=== PATIENT | female | born 1990 | race Caucasian/White ===

== ENCOUNTER → 2020-10-26 14:49 | Outpatient (CLI) | payer BC, SELFPAY ==
--- NOTE | ~2020-10-26 | US_ITS ---
US pelvic complete w TV DATE: 10/26/2020 15:34 INDICATION: Sharp punching pain in the pelvis, left lower quadrant TECHNIQUE: Real-time imaging via transabdominal and transvaginal approaches COMPARISON: 02/12/2013 pelvic ultrasound FINDINGS: The uterus measures 7.0 cm height, 3.4 cm AP and 4.0 cm transverse dimension, with 6 mm kenia tral anteroposterior dimension endometrial echo complex. Right ovary 1.7 x 1.2 x 1.3 cm with vascular flow. Left ovary 1.1 x 0.9 x 1.0 cm No pelvic mass or abnormal pelvic fluid collection is identified. IMPRESSION: No significant abnormality demonstrated Reviewed, dictated and finalized at Location [facility]. Reviewed, dictated and finalized at location A.
== END ==
PROVIDERS: PCP Internal Medicine; Visit Provider Physician Assistant Medical
DX: R10.9 Unspecified abdominal pain (principal)
CPT/HCPCS: 76830; 76856

== ENCOUNTER 2022-10-07 13:31 | Outpatient (CLI) | payer OTHER, SELFPAY ==
--- NOTE | ~2022-10-07 | XR_ITS ---
XR chest 2V DATE: 10/07/2022 13:51 INDICATION: Dyspnea TECHNIQUE: PA and lateral views COMPARISON: 04/01/2015 PA chest FINDINGS: Right internal jugular Port-A-Cath catheter, distal tip overlying upper right atrium. Surgical clips overlie right breast and right axillary area. Normal heart size. No hilar or mediastinal enlargement. No pulmonary infiltrate or consolidation, ple ural effusion or pulmonary vascular congestion or pneumothorax. Included skeletal structures are unremarkable. IMPRESSION: No active cardiopulmonary disease Right Port-A-Cath catheter tip in upper right atrium Postoperative change of right breast and axillary area Reviewed, dictated and finalized at location B.
[2022-10-07 14:05] LABS: Basophils Absolute Auto 0.1 K/mm3 (0.0-0.1); Basophils Percent Auto 0.8 % (0.2-1.2); Eosinophils Absolute Auto 0.4 K/mm3 (0-0.3); Eosinophils Percent Auto 5.5 % (0-4.4); Hematocrit 38.6 % (37.0-47.0); Hemoglobin 12.8 g/dL (12.0-15.0); Immature Granulocyte Absolute 0.01 K/mm3 (0.00-0.031); Immature Granulocyte Percent A 0.1 % (0-0.5); Lymphocytes Absolute Auto 1.68 K/mm3 (0.9-3.2); Lymphocytes Percent Auto 23.6 % (18.3-44.2); Mean Corpuscular HGB Conc 33.2 g/dl (32-36); Mean Corpuscular Volume 90.6 fl (80-100); Mean Platelet Volume 9.1 fl (7.4-10.4); Monocytes Absolute Auto 0.5 K/mm3 (0.1-0.6); Monocytes Percent Auto 7.2 % (2.6-8.5); Neutrophils Absolute Auto 4.5 K/mm3 (1.3-6.7); Neutrophils Percent Auto 62.8 % (45.5-73.1); Platelet Count Result 259 k/mm3 (150-375); Red Blood Count 4.26 M/mm3 (4.2-5.4); Red Cell Distribution Width 12.7 % (11.5-14.5); White Blood Count 7.1 K/mm3 (4.5-10.0)
[2022-10-07 14:15] LABS: Alanine Aminotransferase 24 U/L (6-35); Alkaline Phosphatase 63 U/L (38-126); Anion Gap 14 mmol/L (8-16); Aspartate Amino Transferase 23 U/L (14-36); Bilirubin,Total 0.3 mg/dL (0.2-1.3); Blood Urea Nitrogen 9 mg/dL (7-17); Calcium 8.8 mg/dL (8.4-10.2); Carbon Dioxide 17 mmol/L (22-30); Chloride 107 mmol/L (98-107); Cholesterol 304 mg/dL (0-200); Estimated Glomerular Filt Rate > 60; Glucose 123 mg/dL (65-110); HDL Direct 76 mg/dL; Magnesium 1.8 mg/dL (1.6-2.3); Potassium 3.6 mmol/L (3.4-5.0); Sodium 138 mmol/L (137-145); Triglycerides 330 mg/dL (<150)
[2022-10-07 14:26] LABS: LDL Cholesterol Direct 163 mg/dL
[2022-10-07 14:27] LABS: NT Pro B Type Natriuretic Pept 70 pg/mL (19.9-100); Troponin I < 0.012 ng/mL (0.000-0.034)
[2022-10-07 14:31] LABS: Vitamin D 25 Hydroxy 36.4 ng/mL
[2022-10-07 15:21] LABS: D Dimer 0.47 ug/mL (<0.48)
== END 2022-10-07 13:32 | disposition home or self-care (01) ==
PROVIDERS: PCP Physician Assistant Medical; Visit Provider Physician Assistant Medical
DX: C50.919 Malignant neoplasm of unspecified site of unspecified female breast (principal); E78.00 Pure hypercholesterolemia, unspecified; R06.00 Dyspnea, unspecified; R07.9 Chest pain, unspecified; Z00.00 Encounter for general adult medical examination without abnormal findings; Z92.21 Personal history of antineoplastic chemotherapy; E55.9 Vitamin D deficiency, unspecified
CPT/HCPCS: 36415; 71046; 80053; 80061; 82306; 82607; 83735; 83880; 84443; 84484; 85025; 85380

== ENCOUNTER 2022-10-10 10:46 | Emergency (ER) | payer OTHER, SELFPAY ==
--- NOTE | ~2022-10-10 | CT_ITS ---
EXAMINATION: CTA chest PE protocol DATE: 10/10/2022 13:43 INDICATION: Shortness of breath. TECHNIQUE: Computed tomography angiography (CTA) of the chest was performed with 100 mL Omnipaque-350 intravenous contrast timed to evaluate the pulmonary arteries. Coronal maximum intensity projection 3D-reconstructions were created by the technologist. Automated exposure control and iterative reconst ruction technique were employed. The dose-length product was 462.18 mGy-cm. COMPARISON: None. FINDINGS: The lungs demonstrate mild atelectasis. There is a 3 mm nodule in right middle lobe, likely benign. Calcified left lung nodules and calcified left hilar lymph nodes are consistent with old gra nulomatous disease. No pleural effusion. There is a right internal jugular port with tip in right atr ium. The heart size is normal. No pericardial effusion. There is no pulmonary embolus. There are surg ical changes in right breast and right axilla. The bones are unremarkable. IMPRESSION: 1. No pulmonary embolus. Reviewed, dictated and finalized at location A. IMPRESSION: 1. No pulmonary embolus.
[2022-10-10 10:59] VITALS: BP 135/76; PULSE 96; RESP 20; TEMP 36.6; O2SAT 100
--- NOTE | 2022-10-10 12:37 | ED.SOB ---
HPI - SOB/Dyspnea General Chief Complaint: Shortness of Breath/Dyspnea Stated Complaint: SOB X1 MONTH Time Seen by Provider: 10/10/22 11:49 History of Present Illness HPI Narrative: Patient is a 32-year-old female who presents ER with shortness of breath. Reports its worsened over the last month. Prior to that it had been intermittent over the previous 6 months. It was worse when she was receiving chemo and radiation. She has history of breast cancer that had no metastases. She reports that her PCP sent her here to have a CT scan to rule out metastases to her lung. Her oncologist has ordered an outpatient echocardiogram to evaluate her for heart failure. She has no orthopnea. No productive cough. No hemoptysis. No lower extremity swelling. She is without fevers or chills or sweats. She reports she feels like she cannot get a breath through her nose but denies any nasal congestion. Denies any alleviating factors. Related Data Home Medications Medication Instructions Recorded Confirmed aspirin 81 mg capsule 81 mg PO DAILY 10/10/22 10/10/22 Allergies Allergy/AdvReac Type Severity Reaction Status Date / Time doxycycline Allergy Severe Vomiting Verified 10/10/22 11:14 nitrofurantoin Allergy Intermediate Rash Verified 10/10/22 11:14 carboplatin Allergy Anaphylaxis Verified 10/10/22 11:14 acetaminophen [From Percocet] AdvReac Severe Vomiting Verified 10/10/22 11:14 ciprofloxacin AdvReac Severe Diarrhea Verified 10/10/22 11:14 oxycodone [From Percocet] AdvReac Severe Vomiting Verified 10/10/22 11:14 Review of Systems Review of Systems: All systems reviewed & are unremarkable except as noted in HPI and below Constitutional: Constitutional: Denies chills, Reports fatigue and Denies fever(s) ENT: Denies nasal congestion and Denies sore throat Cardiovascular: Cardiovascular: Denies chest pain, Denies rapid heart rate and Denies radiating jaw, neck or arm pain Respiratory: Respiratory: Denies cough, Reports dyspnea and Denies wheezing Gastrointestinal: Gastrointestinal: Denies abdominal pain, Denies nausea and Denies vomiting PMF Past Medical History Medical History (Updated 10/10/22 @ 14:48 by Robert Stewart MD) Abnormal breast biopsy Breast cancer Elevated cholesterol Endometriosis Endometriosis determined by laparoscopy Hematuria Pain of left calf Triple negative breast cancer Vitamin D deficiency Surgical History Surgical History (Updated 10/07/22 @ 11:50 by Sylvia Kennedy MA) History of tonsillectomy Social History Social History Smoking status: Never smoker Alcohol intake: current Alcohol use details: rarely Substance use: never Living arrangements: with friend(s) Occupation/Education: occupation Gender identity (if verbalized by the patient): Female Exam Narrative: GENERAL: Well-appearing, well-nourished, and in no acute distress. HEAD: Normocephalic, atraumatic. ENT: Mucous membranes moist. CHEST: Clear to auscultation. No respiratory distress. HEART: Regular rate and rhythm. Normal peripheral pulses. ABDOMEN: Soft, nontender, nondistended. EXTREMITIES: Normal range of motion. No edema. SKIN: Warm, dry, no rash. NEURO: Alert and oriented x3. PSYCH: Normal mood and affect. Course Course Emergency Course: Patient resting comfortably. Discussed lab work as well as imaging studies. Patient felt appropriate for discharge home and follow-up with her PCP/oncologist. Vital Signs Vital signs: Vital Signs Temperature 98 F 10/10/22 10:59 Pulse Rate 96 10/10/22 10:59 Respiratory Rate 20 10/10/22 10:59 Blood Pressure 135/76 10/10/22 10:59 Pulse Oximetry 100 10/10/22 10:59 Oxygen Delivery Room Air 10/10/22 10:59 Temperature 98 F 10/10/22 10:59 Pulse Rate 67 10/10/22 15:00 Respiratory Rate 16 10/10/22 15:00 Blood Pressure 117/80 10/10/22 15:00 Pulse Oximetry 98
[2022-10-10 13:01] LABS: Basophils Percent Auto 0.5 % (0.2-1.2); Eosinophils Percent Auto 0.1 % (0-4.4); Hematocrit 37.9 % (37.0-47.0); Hemoglobin 12.5 g/dL (12.0-15.0); Immature Granulocyte Absolute 0.03 K/mm3 (0.00-0.031); Immature Granulocyte Percent A 0.4 % (0-0.5); Lymphocytes Absolute Auto 0.93 K/mm3 (0.9-3.2); Lymphocytes Percent Auto 12.2 % (18.3-44.2); Mean Corpuscular Hemoglobin 29.8 pg (26-34); Mean Corpuscular Volume 90.2 fl (80-100); Mean Platelet Volume 9.1 fl (7.4-10.4); Monocytes Absolute Auto 0.2 K/mm3 (0.1-0.6); Neutrophils Absolute Auto 6.4 K/mm3 (1.3-6.7); Neutrophils Percent Auto 83.8 % (45.5-73.1); Platelet Count Result 268 k/mm3 (150-375); Red Cell Distribution Width 12.9 % (11.5-14.5); White Blood Count 7.6 K/mm3 (4.5-10.0)
[2022-10-10 13:14] LABS: Alanine Aminotransferase 23 U/L (6-35); Albumin Level 4.2 g/dL (3.5-5.1); Alkaline Phosphatase 64 U/L (38-126); Anion Gap 8 mmol/L (8-16); Aspartate Amino Transferase 23 U/L (14-36); Bilirubin,Total 0.3 mg/dL (0.2-1.3); Blood Urea Nitrogen 11 mg/dL (7-17); Calcium 8.8 mg/dL (8.4-10.2); Carbon Dioxide 21 mmol/L (22-30); Chloride 108 mmol/L (98-107); Estimated CRCL calculation 110 ml/min; Estimated Glomerular Filt Rate > 60; Glucose 97 mg/dL (65-110); Potassium 3.7 mmol/L (3.4-5.0); Sodium 137 mmol/L (137-145)
[2022-10-10 13:16] LABS: INR 0.9; Partial Thromboplastin Time 21.1 SECONDS (22.3-36.8); Prothrombin Time 12.8 Seconds (11.1-14.7)
[2022-10-10 13:55] VITALS: BP 119/78; PULSE 77; RESP 18; O2SAT 99
[2022-10-10 15:00] VITALS: BP 117/80; PULSE 67; RESP 16; O2SAT 98
== END 2022-10-10 15:05 | disposition home or self-care (01) ==
PROVIDERS: Emergency Provider Emergency Medicine; PCP Physician Assistant Medical
DX: R06.00 Dyspnea, unspecified (principal); E78.00 Pure hypercholesterolemia, unspecified; N80.9 Endometriosis, unspecified; E55.9 Vitamin D deficiency, unspecified; Z85.3 Personal history of malignant neoplasm of breast; Z92.3 Personal history of irradiation; Z92.21 Personal history of antineoplastic chemotherapy; Z79.82 Long term (current) use of aspirin
CPT/HCPCS: 36415; 71275; 80053; 81025; 85025; 85610; 85730; 99284; Q9967

== ENCOUNTER 2022-11-17 10:29 | Outpatient (CLI) | payer OTHER, SELFPAY ==
--- NOTE | 2022-11-17 11:50 | PCRCNOTE ---
PATIENT HAS RECEIVED EDUCATION ON PEAK FLOW AND SPACER.
--- NOTE | 2022-11-17 16:39 | WPDPFTINT ---
PFT Procedure Performed PFT Procedure Performed Spirometry with Pre/Post Bronchodilator Plethysmography (Lung Vol) Diffusing Cap (DLCO) Flow Vol Loop PFT Interpretation Lung volumes were measured with the body plethysmography method. Lung volumes are unremarkable. Spirometry showed normal expiratory flow rates and a normal FEV1 to FVC ratio of 84%. Following administration of a bronchodilator there was no significant increase in the expiratory flow rates. Lung diffusion capacity is mildly reduced at 66% predicted. The flow volume loop is unremarkable. Impression: Spirometry, lung volumes within the normal range. Mild reduction in lung diffusion capacity.
--- NOTE | 2022-11-17 16:40 | WPDSIXMINUTE ---
Six Minute Walk Procedure Procedure Performed Pulmonary Stress Test (6 min walk) Six Minute Walk Six Minute Walk: This 6 minute walk test was carried out with the patient breathing ambient air. The baseline pre walk oxyhemoglobin saturation was 98%. The patient walked 411 m with no stops during testing. During the walk the oxyhemoglobin saturation remained in the range of 97% to 98%. The perceived dyspnea on the Maxi scale at baseline was 0 and increased to 2 at the end of testing. Impression: No evidence of oxyhemoglobin desaturation on this testing.
== END 2022-11-17 10:30 | disposition home or self-care (01) ==
PROVIDERS: PCP Family Medicine; Visit Provider Internal Medicine Critical Care Medicine
DX: R06.02 Shortness of breath (principal)
CPT/HCPCS: 94060; 94618; 94726; 94729

== ENCOUNTER → 2022-11-25 11:44 | Outpatient (CLI) | payer OTHER, SELFPAY ==
--- NOTE | ~2022-11-25 | US_ITS ---
US breast BI complete DATE: 11/25/2022 12:12 INDICATION: Right breast pain for one month single status post right partial mastectomy in February, for triple negative breast cancer. TECHNIQUE: Real-time imaging of both complete breasts including all 4 quadrants and subareolar areas COMPARISON: None available at this institution FINDINGS: No suspicious mass or shadowing, cyst or other significant sonographic abnormality of eithe r breast is detected. IMPRESSION: No significant abnormality Reviewed, dictated and finalized at Location A. Reviewed, dictated and finalized at location A. IMPRESSION: No significant abnormality
== END ==
PROVIDERS: PCP Family Medicine; Visit Provider Family Medicine
DX: N64.4 Mastodynia (principal); Z85.3 Personal history of malignant neoplasm of breast
CPT/HCPCS: 76641

== ENCOUNTER 2023-01-27 17:45 | Emergency (ER) | payer OTHER, SELFPAY ==
--- NOTE | ~2023-01-27 | XR_ITS ---
EXAMINATION: XR abdomen/kub 1V DATE: 01/27/2023 18:40 INDICATION: Constipation 5 days of left-sided abdominal pain TECHNIQUE: A supine view of the abdomen was obtained. COMPARISON: 10/13/2012 FINDINGS: Moderate to large amount of stool in the mid to distal colon. No dilated loops of gas-filled bowel to suggest obstruction. No suspicious calcific lesions in the abdomen or pelvis. Bones are unremarkable . IMPRESSION: 1. Moderate to large amount of stool in the mid to distal colon consistent with provided history of c onstipation. No bowel obstruction. Reviewed, dictated and finalized at location A. APY ADMINISTRATIVE ASSISTANT IMPRESSION: 1. Moderate to large amount of stool in the mid to distal colon consistent with provided history of constipation. No bowel obstruction.
[2023-01-27 18:14] VITALS: BP 112/67; PULSE 85; RESP 18; TEMP 36.2; O2SAT 99
--- NOTE | 2023-01-27 18:34 | ED.ABDPAIN ---
HPI - Abdominal Pain General Chief Complaint: Abdominal Pain Stated Complaint: Left Side Pain Time Seen by Provider: 01/27/23 18:34 Source: patient Mode of arrival: ambulatory Limitations: no limitations History of Present Illness HPI narrative: 33-year-old female presents with complaint of left-sided abdominal pain under her ribcage for the past several days. Denies urinary symptoms. No history of kidney stones. Patient concerned that she is possibly constipated. States that she was having normal bowel movements and no bowel movements are small. History of Endometriosis and has had off and on constipation since diagnosis. all systems reviewed and negative except as noted above. Related Data Home Medications Medication Instructions Recorded Confirmed norethindrone 0.4 mg-ethinyl 1 tablet PO DAILY 11/16/22 01/27/23 estradiol 35 mcg tablet (Vyfemla (28)) rosuvastatin 5 mg tablet 5 mg PO HS 01/27/23 01/27/23 Allergies Allergy/AdvReac Type Severity Reaction Status Date / Time carboplatin Allergy Severe Anaphylaxis Verified 01/27/23 17:46 acetaminophen [From Percocet] AdvReac Intermediate Vomiting Verified 01/27/23 17:46 ciprofloxacin AdvReac Intermediate Diarrhea Verified 01/27/23 17:46 doxycycline AdvReac Intermediate Vomiting Verified 01/27/23 17:46 oxycodone [From Percocet] AdvReac Intermediate Vomiting Verified 01/27/23 17:46 nitrofurantoin AdvReac Mild Rash Verified 01/27/23 17:46 Review of Systems Review of Systems: CONSTITUTIONAL: Denies fever, chills, or sweats. EYES: Denies visual changes, redness, or discharge. ENT: Denies rhinorrhea, congestion, sore throat, or otalgia. CARDIOVASCULAR: Denies chest pain, palpitations, or edema. RESPIRATORY: Denies cough or dyspnea. GASTROINTESTINAL: Reports left-sided pain with intermittent abdominal bloating. No diarrhea, nausea or vomiting. GENITOURINARY: Denies dysuria or hematuria. SKIN: Denies rash or itching. MUSCULOSKELETAL: Denies back pain, joint pain, or myalgia. NEUROLOGIC: Denies headache, numbness, or weakness. PSYCHIATRIC: Denies anxiety or depression. All other systems reviewed are negative, except as documented in HPI. [facility] Past Medical History Medical History (Updated 01/27/23 @ 18:58 by Samira Andrea NP) Abnormal breast biopsy Breast cancer right breast, medial position lumpectomy 02-10-2022, Dr Kiser Breast lump Breast pain Elevated cholesterol Endometriosis Endometriosis determined by laparoscopy Hematuria History of breast cancer Pain of left calf Triple negative breast cancer Vitamin D deficiency Surgical History Surgical History History of adenoidectomy History of breast biopsy History of tonsillectomy Hx of myomectomy S/P myringotomy with insertion of tube Social History Social History Smoking status: Never smoker Alcohol intake: current Alcohol use details: rarely Substance use: never Living arrangements: with friend(s) Occupation/Education: occupation Gender identity (if verbalized by the patient): Female Comments At time of signature, agree with nursing past medical, surgical, social and family history. There is no relevant family history pertinent to the presenting complaint. Exam Narrative: GENERAL: This is a well-nourished, well-developed patient, in no apparent distress. HEAD: normocephalic, atraumatic. EYES: PERRL. Sclera clear/white. Vision is grossly intact. EARS: External ears normal NOSE: External nose normal NECK: Neck supple, non-tender without lymphadenopathy, masses or thyromegaly. CARDIOVASCULAR: Regular rate and rhythm without murmurs, gallops, or rubs. RESPIRATORY: Clear to auscultation. Breath sounds equal bilaterally. No wheezes, rales, or rhonchi. GASTROINTESTINAL: Abdomen soft, non-tender, nondistended. Bowel sounds are Hypo active. No hepato-sple
== END 2023-01-27 19:00 | disposition home or self-care (01) ==
PROVIDERS: Emergency Provider Nurse Practitioner Family; PCP Family Medicine
DX: K59.00 Constipation, unspecified (principal); E78.00 Pure hypercholesterolemia, unspecified; N80.9 Endometriosis, unspecified; Z85.3 Personal history of malignant neoplasm of breast
CPT/HCPCS: 74018; 81003; 99213; G0463

== ENCOUNTER → 2023-05-03 12:42 | Outpatient (CLI) | payer OTHER, SELFPAY ==
--- NOTE | ~2023-05-03 | US_ITS ---
US axilla LT 05/03/2023 12:59 Indication: Palpable lump left axilla Procedure: High-resolution ultrasound of the left axilla Comparison: No prior studies for comparison. Findings: There is a normal lymph node of the left axilla in the area of palpable concern measuring 1 .8 x 1.5 x 0.9 cm with fatty hilum. No suspicious masses to suggest malignancy. Impression: 1: Normal left axillary lymph node corresponding to area of palpable concern. BI-RADS CATEGORY 2 - BENIGN FINDINGS Reviewed, dictated and finalized at location A. NE ELECTRICIAN Impression: 1: Normal left axillary lymph node corresponding to area of palpable concern. BI-RADS CATEGORY 2 - BENIGN FINDINGS
== END ==
PROVIDERS: Visit Provider Physician Assistant Medical
DX: N63.32 Unspecified lump in axillary tail of the left breast (principal)
CPT/HCPCS: 76882

== ENCOUNTER 2023-09-13 08:03 | Outpatient (CLI) | payer OTHER, SELFPAY ==
--- NOTE | ~2023-09-13 | CT_ITS ---
EXAMINATION: CT abdomen pelvis w con DATE: 09/13/2023 08:44 INDICATION: Unspecified abdominal pain. TECHNIQUE: Computed tomography (CT) of the abdomen and pelvis was performed with 100 mL Omnipaque 350 intravenous contrast. Automated exposure control and iterative reconstruction technique were employe d. The dose-length product was 867.62 mGy-cm. COMPARISON: None. FINDINGS: The visualized portions of the lung bases demonstrate a calcified left lung nodule, consist ent with old granulomatous disease. No pleural effusion. The heart size is normal. No pericardial eff usion. The liver, gallbladder, spleen, pancreas, adrenal glands, and kidneys are normal. There is liq uid stool in the colon suggesting diarrhea. The appendix is visualized. There are no dilated loops of bowel. There are no pathologically enlarged lymph nodes. There is no free intraperitoneal fluid. The bones are unremarkable. IMPRESSION: 1. No etiology for the patient's symptoms. Reviewed, dictated and finalized at location A.
== END 2023-09-13 08:04 | disposition home or self-care (01) ==
PROVIDERS: PCP Physician Assistant Medical; Visit Provider Physician Assistant Medical
DX: R93.5 Abnormal findings on diagnostic imaging of other abdominal regions, including retroperitoneum (principal)
CPT/HCPCS: 74177; Q9967

== ENCOUNTER 2023-09-19 17:11 | Emergency (ER) | payer OTHER, SELFPAY ==
--- NOTE | 2023-09-19 17:17 | ED.FEMALEGU ---
HPI - Female Genitourinary General Chief complaint: Urogenital-Female Stated complaint: UTI Issues Time Seen by Provider: 09/19/23 17:30 Source: patient, RN notes reviewed and old records reviewed Mode of arrival: ambulatory Limitations: no limitations History of Present Illness HPI Narrative: 33-year-old female presents to the [facility] with concerns for UTI, recently diagnosed on 09/06, prescribed Keflex. Was seen [facility] at 6/29 a.m., prescribed cefpodoxime and on 09/14 was prescribed Medrol Dosepak Did see her primary care provider on the 11 of September, urine dip done, CT scan done did not show any acute findings Patient reports that she did a telehealth visit on the 14 of September, was prescribed a Medrol Dosepak. States that she is still not getting relief with her pain. Has a prescription for tramadol, states it is not working. Related Data Home Medications Medication Instructions Recorded Confirmed norethindrone 0.4 mg-ethinyl 1 tablet PO DAILY 11/16/22 09/19/23 estradiol 35 mcg tablet (Vyfemla (28)) cholecalciferol (vitamin D3) 50 50 mcg PO DAILY 03/15/23 09/19/23 mcg (2,000 unit) capsule Allergies Allergy/AdvReac Type Severity Reaction Status Date / Time carboplatin Allergy Severe Anaphylaxis Verified 09/19/23 17:22 acetaminophen [From Percocet] AdvReac Intermediate Vomiting Verified 09/19/23 17:22 ciprofloxacin AdvReac Intermediate Diarrhea Verified 09/19/23 17:22 doxycycline AdvReac Intermediate Vomiting Verified 09/19/23 17:22 oxycodone [From Percocet] AdvReac Intermediate Vomiting Verified 09/19/23 17:22 [id number]-VfW Reductase AdvReac Intermediate Myalgias Verified 09/19/23 17:22 Inhibitor nitrofurantoin AdvReac Mild Rash Verified 09/19/23 17:22 Review of Systems Review of Systems: All systems reviewed & are unremarkable except as noted in HPI and below Constitutional: Constitutional: Reports no additional constitutional complaints Eyes: Eyes: Reports no additional eye complaints ENT: Reports system reviewed and no additional complaints, except as documented Cardiovascular: Cardiovascular: Reports no additional cardiovascular complaints, Denies chest pain and Denies dyspnea Respiratory: Respiratory: Reports no additional respiratory complaints, Denies chest congestion, Denies cough and Denies dyspnea Gastrointestinal: Gastrointestinal: Reports no additional gastrointestinal complaints, Denies abdominal pain, Denies nausea and Denies vomiting Musculoskeletal: Musculoskeletal: Reports as per HPI and Reports back pain (Left lower flank) Integumentary/Breasts: Skin/Breast: Reports system reviewed and no additional complaints, except as docu Neurologic: Reports system reviewed and no additional complaints, except as documented Psychiatric: Psychiatric: Reports no additional psychiatric complaints Allergic/Immunologic: Allergic/Immunologic: Reports no additional allergic/immunologic complaints PMFSH Past Medical History Medical History Abnormal breast biopsy Breast cancer right breast, medial position lumpectomy 02-10-2022, Dr Kiser Breast lump Breast pain Dyslipidemia Elevated cholesterol Endometriosis Endometriosis determined by laparoscopy Hematuria History of breast cancer Pain of left calf Triple negative breast cancer Vitamin D deficiency Surgical History Surgical History History of adenoidectomy History of breast biopsy History of tonsillectomy Hx of myomectomy S/P myringotomy with insertion of tube Social History Social History Smoking status: Never smoker Alcohol intake: current Alcohol use details: rarely Substance use: never Living arrangements: with friend(s) Occupation/Education: occupation Gender identity (if verbalized by the patient): Female Comments At the time of my signature,
[2023-09-19 17:35] VITALS: BP 129/84; PULSE 90; RESP 18; TEMP 36.8; O2SAT 98
[2023-09-19] MEDS: KETOROLAC (*BKC) 60 MG/2 ML VIAL IM (17:55)
[2023-09-19 18:19] LABS: EDUAAPPEAR Clear; EDUABILI Negative; EDUABLOOD Trace; EDUACOLOR1 Yellow; EDUAGLUCOSE Negative; EDUAKETONE Negative; EDUALEUKO Negative; EDUANITRATE Negative; EDUAPH 5.5; EDUAPROTEIN Negative; EDUAUROBILI 0.2
== END 2023-09-19 18:15 | disposition home or self-care (01) ==
PROVIDERS: Emergency Provider Nurse Practitioner; PCP Physician Assistant Medical
DX: R10.9 Unspecified abdominal pain (principal); E78.5 Hyperlipidemia, unspecified; E78.00 Pure hypercholesterolemia, unspecified; N80.9 Endometriosis, unspecified; E55.9 Vitamin D deficiency, unspecified; Z85.3 Personal history of malignant neoplasm of breast; Z90.11 Acquired absence of right breast and nipple
CPT/HCPCS: 81003; 87086; 96372; 99213; G0463; J1885

== ENCOUNTER 2023-09-29 11:53 | Outpatient (CLI) | payer OTHER, SELFPAY ==
--- NOTE | ~2023-09-29 | US_ITS ---
Abdominal Sonogram: Real-time sonographic imaging of the abdomen was performed. Clinical History: Abdominal pain Findings: The liver appears normal with no evidence of mass lesion or bile duct dilatation. Main por vandana vein demonstrates normal direction of flow. The spleen is normal in size without evidence of foca l lesion. The gallbladder is well distended, and appears normal with no evidence of gallstone or wal l thickening. The common bile duct measures 4 mm. The visualized pancreas, aorta, and IVC are unrema rkable. The right kidney measures 11.1 cm in length and the left kidney measures 10.2 cm. There is no hydronephrosis or renal calculus. Impression: Unremarkable abdominal ultrasound. Reviewed, dictated and finalized at location M. Impression: Unremarkable abdominal ultrasound.
== END 2023-09-29 11:54 ==
PROVIDERS: PCP Internal Medicine Gastroenterology; Visit Provider Physician Assistant Medical
DX: R10.9 Unspecified abdominal pain (principal)
CPT/HCPCS: 76700

== ENCOUNTER 2023-12-22 03:41 | Day surgery (SDC) | payer OTHER, SELFPAY ==
[2023-12-05 08:57] VITALS: BMI 36.9
[2023-12-22 12:49] VITALS: BP 135/78; PULSE 79; RESP 20; TEMP 36.4; O2SAT 97; BMI 35.9
[2023-12-22] MEDS: LACTATED RINGERS 1,000 ML 150 ML IV CONT (13:07)
--- NOTE | 2023-12-22 13:44 | PM.HPGS ---
History of Present Illness History of Present Illness Consent: Risks, benefits, and alternatives have been discussed and questions answered. Patient agrees to proceed with procedure. Chief complaint: abd pain, constipation, heartburn Narrative: Latrice Tate is a 33 year old female with constipation, last colonoscopy 2019 because endometriosis, also gerd- never had egd Review of Systems Review of Systems: All systems reviewed & are unremarkable except as noted in HPI and below PMFSH Past Medical History Medical History (Updated 11/17/23 @ 12:24 by MARYBEL Lara) Abnormal breast biopsy Breast cancer right breast, medial position lumpectomy 02-10-2022, Dr Kiser Breast lump Breast pain Dyslipidemia Elevated cholesterol Endometriosis Endometriosis determined by laparoscopy Heartburn Hematuria History of breast cancer Left sided abdominal pain Pain of left calf Triple negative breast cancer Vitamin D deficiency Surgical History Surgical History History of adenoidectomy History of breast biopsy History of tonsillectomy Hx of myomectomy S/P myringotomy with insertion of tube Social History Social History Smoking status: Never smoker Alcohol intake: current Alcohol use details: rarely Substance use: never Substance use type: does not use Living arrangements: alone Occupation/Education: occupation Gender identity (if verbalized by the patient): Female Spiritual care concerns: No Meds Home Medications and Allergies Home Medications Medication Instructions Recorded Confirmed Type alprazolam 0.25 mg tablet 0.25 mg PO DAILY PRN anxiety #30 11/28/22 12/22/23 Rx tabs levothyroxine 75 mcg capsule 75 mcg PO DAILY #90 caps 05/30/23 12/22/23 Rx tramadol 50 mg tablet 50 mg PO Q6H PRN pain #30 tabs 07/14/23 12/22/23 Rx linaclotide 72 mcg capsule 72 mcg PO DAILY 1 month #30 caps 10/12/23 12/22/23 Rx (Linzess) bempedoic acid 180 mg tablet 180 mg PO DAILY #90 tabs 10/16/23 12/22/23 Rx (Nexletol) dicyclomine 10 mg capsule 10 mg PO TID PRN abdominal pain 10/24/23 12/22/23 Rx #90 caps montelukast 10 mg tablet 10 mg PO DAILY #90 tabs 11/20/23 12/22/23 Rx (Singulair) Allergies Allergy/AdvReac Type Severity Reaction Status Date / Time carboplatin Allergy Severe Anaphylaxis Verified 12/22/23 12:46 ciprofloxacin AdvReac Intermediate Diarrhea Verified 12/22/23 12:46 doxycycline AdvReac Intermediate Vomiting Verified 12/22/23 12:46 oxycodone [From Percocet] AdvReac Intermediate Vomiting Verified 12/22/23 12:46 [id number] Reductase AdvReac Intermediate Myalgias Verified 12/22/23 12:46 Inhibitor nitrofurantoin AdvReac Mild Rash Verified 12/22/23 12:46 Vital Signs Vital Signs - 24 hr 12/22/23 12:49 Temperature 97.5 F L Pulse Rate 79 Respiratory Rate 20 Blood Pressure 135/78 Pulse Oximetry 97 Oxygen Delivery Room Air Exam Const: General: comfortable and no acute distress HENMT: Face/Nose/Sinus: Normal nares present Eyes: General: appearance normal, both eyes and all related structures Neck: Neck: no JVD Resp: Auscultation: clear to auscultation bilaterally Cardio: Rate: regular rate Rhythm: regular rhythm GI: Inspection: non-distended GI Palp: Yes Soft to palpation Skin: General skin exam: normal color Neuro: General: gait normal Speech: normal speech Extrem: General: normal to inspection Psych: Mental Status: mental status grossly normal Assessment and Plan Assessment and plan (1) Heartburn: Code(s): R12 - Heartburn Status: Acute Assessment and Plan: egd (2) Left sided abdominal pain: Code(s): R10.9 - Unspecified abdominal pain Status: Acute (3) Constipation: Code(s): K59.00 - Constipation, unspecified Status: Inactive Assessment and Plan: colonoscopy
--- NOTE | 2023-12-22 14:02 | SUR.OPER ---
EGD start 1354 end 1358, Colonoscopy start 1402
[2023-12-22 14:03] LABS: BEDSIDEPREGUCG Negative (Negative)
[2023-12-22 14:14] VITALS: BP 106/78; PULSE 81; RESP 20; O2SAT 97
[2023-12-22 14:23] VITALS: BP 106/70; PULSE 56; RESP 19; O2SAT 100
[2023-12-22 14:30] VITALS: BP 110/70; PULSE 62; RESP 22; O2SAT 100
== END 2023-12-22 14:42 | disposition home or self-care (01) ==
PROVIDERS: PCP Physician Assistant Medical; Referring Provider Nurse Practitioner Family; Visit Provider Internal Medicine Gastroenterology
PROC: 0DJ08ZZ Inspection of Upper Intestinal Tract, Via Natural or Artificial Opening Endoscopic (ICD-10-PCS; CPT 43235; principal; 2023-12-22 14:00)
DX: K29.50 Unspecified chronic gastritis without bleeding (principal); K29.80 Duodenitis without bleeding; N80.9 Endometriosis, unspecified; E78.00 Pure hypercholesterolemia, unspecified; E55.9 Vitamin D deficiency, unspecified; Z79.891 Long term (current) use of opiate analgesic; Z98.890 Other specified postprocedural states; Z85.3 Personal history of malignant neoplasm of breast
CPT/HCPCS: 43239; 45378; 88305; 88342; J2003; J2704; J7120

== ENCOUNTER 2024-02-13 16:44 | Emergency (ER) | payer OTHER, SELFPAY ==
--- NOTE | 2024-02-13 17:01 | ED.GENADULT ---
HPI - General Adult General Chief complaint: Animal Bite Stated complaint: Cat Bite Time Seen by Provider: 02/13/24 17:02 Source: patient, RN notes reviewed and old records reviewed Mode of arrival: ambulatory Limitations: no limitations History of Present Illness HPI narrative: 34-year-old female presents to the [facility] with a cat bite to the right thumb. States that occurred yesterday. Patient believes that she is up-to-date on her tetanus, declining at this time Patient reports cat is up-to-date on vaccines Related Data Allergies Allergy/AdvReac Type Severity Reaction Status Date / Time carboplatin Allergy Severe Anaphylaxis Verified 02/13/24 16:56 ciprofloxacin AdvReac Intermediate Diarrhea Verified 02/13/24 16:56 doxycycline AdvReac Intermediate Vomiting Verified 02/13/24 16:56 oxycodone [From Percocet] AdvReac Intermediate Vomiting Verified 02/13/24 16:56 Qzuvwlj-DKZ-WgJ Reductase AdvReac Intermediate Myalgias Verified 02/13/24 16:56 Inhibitor nitrofurantoin AdvReac Mild Rash Verified 02/13/24 16:56 Review of Systems Review of Systems: All systems reviewed & are unremarkable except as noted in HPI and below Constitutional: Constitutional: Reports no additional constitutional complaints ENT: Reports system reviewed and no additional complaints, except as documented Cardiovascular: Cardiovascular: Reports no additional cardiovascular complaints, Denies chest pain and Denies dyspnea Respiratory: Respiratory: Reports no additional respiratory complaints, Denies chest congestion, Denies cough and Denies dyspnea Gastrointestinal: Gastrointestinal: Reports no additional gastrointestinal complaints, Denies abdominal pain, Denies nausea and Denies vomiting Musculoskeletal: Musculoskeletal: Reports no additional musculoskeletal complaints Integumentary/Breasts: Skin/Breast: Reports as per HPI PMFSH Past Medical History Medical History Abnormal breast biopsy Breast cancer right breast, medial position lumpectomy 02-10-2022, Dr Kiser Breast lump Breast pain Dyslipidemia Elevated cholesterol Endometriosis Endometriosis determined by laparoscopy Heartburn Hematuria History of breast cancer Left sided abdominal pain Pain of left calf Triple negative breast cancer Vitamin D deficiency Surgical History Surgical History History of adenoidectomy History of breast biopsy History of tonsillectomy Hx of myomectomy S/P myringotomy with insertion of tube Social History Social History Smoking status: Never smoker Alcohol intake: current Alcohol use details: rarely Substance use: never Substance use type: does not use Living arrangements: alone Occupation/Education: occupation Gender identity (if verbalized by the patient): Female Spiritual care concerns: No Comments At the time of my signature, I reviewed and agree with the nursing past medical, surgical, social, and family history. There is no relevant family history pertinent to the patient complaint. Exam Const: General: cooperative, healthy appearing, comfortable, no acute distress, well developed, alert and well nourished Nutritional Appearance: well nourished Orientation/consciousness: patient oriented x3 Limitations: no limitations HENMT: Head: normal to inspection Ears: hearing grossly normal bilaterally and external ears normal Face/Nose/Sinus: Normal external nose present, normal facial exam and face symmetric Face and sinus: normal facial exam and face symmetric Eyes: General: appearance normal, both eyes and all related structures Alignment and Position: alignment normal Periorbital: periorbital findings normal Neck: Neck: normal visual inspection, full ROM, no lymphadenopathy and no meningeal signs Chest: Chest palpation & inspection: normal inspection of the chest Resp: Effort & Inspection: normal respiratory effort and able to speak in complete sentences Cardio: Rate: regular rate Skin: General skin exam: normal color and no rashes or lesions noted Lesions: no lesions Rashes: no rashes Wounds: no wounds Other: Puncture room space of right thumb. Sensation intact, capillary refill under 2 seconds. Full range of motion of the thumb is noted. Neuro: General: patient oriented x3, gait normal, tone normal, moves all extremities and no meningeal signs Cognition (Neuro): normal cognition Speech: normal speech Gait exam (Neuro): Normal gait present Extrem: General: normal to inspection, full ROM, capillary refill normal and normal gait Psych: Appearance: grossly normal and well kempt Mental Status: mental status grossly normal Speech and movement: Normal speech and movement present and Clear speech present Affect: normal affect Attitude: cooperative Course Course Level of Care: Express Care Visit Vital Signs Vital signs: Vital Signs Temperature 97.6 F 02/13/24 17:05 Pulse Rate 64 02/13/24 17:05 Respiratory Rate 18 02/13/24 17:05 Blood Pressure 117/65 02/13/24 17:05 Pulse Oximetry 99 02/13/24 17:05 Oxygen Delivery Room Air 02/13/24 17:05 Temperature 97.6 F 02/13/24 17:06 Pulse Rate 64 02/13/24 17:06 Respiratory Rate 18 02/13/24 17:06 Blood Pressure 117/65 02/13/24 17:06 Pulse Oximetry 99 02/13/24 17:06 Oxygen Delivery Room Air 02/13/24 17:06 Reviewed Medical Decision Making MDM Narrative Medical decision making narrative: Patient sitting comfortably in exam room. Nontoxic, vitals stable. Patient in no acute distress Patient presents for cat bite. Localize redness to the puncture sites. Has full range of motion. No fluctuance noted. Patient appropriate for outpatient treatment and follow-up Discharge instructions reviewed with patient, as well as provided in writing per nursing staff. The instructions also include specific and strict return/GO TO THE ER as well as f/u information. All questions have been answered, and the patient deny any further questions with discharge and discharge plan. Some parts of this dictation were generated by voice recognition software and may contain typographical and/or grammatical inaccuracies. Differential Diagnosis Differential Diagnosis: Cat bite, cellulitis, abscess Medical Records Medical records reviewed: Yes I reviewed the external patient's medical records. Vital Signs Vital Signs: Vital Signs Temperature 97.6 F 02/13/24 17:05 Pulse Rate 64 02/13/24 17:05 Respiratory Rate 18 02/13/24 17:05 Blood Pressure 117/65 02/13/24 17:05 Pulse Oximetry 99 02/13/24 17:05 Oxygen Delivery Room Air 02/13/24 17:05 Temperature 97.6 F 02/13/24 17:06 Pulse Rate 64 02/13/24 17:06 Respiratory Rate 18 02/13/24 17:06 Blood Pressure 117/65 02/13/24 17:06 Pulse Oximetry 99 02/13/24 17:06 Oxygen Delivery Room Air 02/13/24 17:06 Reviewed Lab Data Lab results reviewed: Yes I reviewed the patient's lab results. Labs: Reviewed Critical Care Time Critical Care Time Critical Care Time: No Discharge Plan Discharge Clinical Impression: Cat bite of finger Patient Disposition: Home, Self-Care Condition: Stable Instructions: Antibiotic Form, Animal Bite (ED) Additional Instructions: Soak the area in warm soapy water preferably Dial soap with Epson salt for 15-20 minutes twice daily, pat dry. Try leaving open to air several hours a day. Can keep covered when not at home. Take antibiotic as prescribed Follow-up either with Dr. Parker or your primary care provider in 1 week to have a wound check For new or worsening symptoms such as but not limited to worsening redness, streaking, fevers, unable to move that thumb please go to the nearest emergency room Patient Language: Cymro Prescriptions: New amoxicillin-pot clavulanate 875-125 mg tablet 1 tablet PO Q12H Qty: 20 0RF No Action Linzess 72 mcg capsule 72 mcg PO DAILY 30 Days Qty: 30 5RF levothyroxine 75 mcg capsule 75 mcg PO DAILY Qty: 90 0RF Nexletol 180 mg tablet 180 mg PO DAILY Qty: 90 0RF dicyclomine 10 mg capsule 10 mg PO TID PRN (Reason: abdominal pain) Qty: 90 0RF montelukast [Singulair] 10 mg tablet 10 mg PO DAILY Qty: 90 0RF omeprazole 40 mg capsule,delayed release(DR/EC) 40 mg PO DAILY 56 Days Qty: 56 0RF alprazolam 0.25 mg tablet 0.25 mg PO DAILY PRN (Reason: anxiety) Qty: 30 2RF Follow-up/Referrals: Lina Ayoub MD [Physician] - 1 Week (cat bite right thumb) Bhavna Ventura PA-C [Primary Care Provider] - Time of Disposition: 17:13
[2024-02-13 17:05] VITALS: BP 117/65; PULSE 64; RESP 18; TEMP 36.4; O2SAT 99
[2024-02-13 17:06] VITALS: BP 117/65; PULSE 64; RESP 18; TEMP 36.4; O2SAT 99
== END 2024-02-13 17:14 | disposition home or self-care (01) ==
PROVIDERS: Emergency Provider Nurse Practitioner; PCP Physician Assistant Medical
DX: S61.031A Puncture wound without foreign body of right thumb without damage to nail, initial encounter (principal); W55.01XA Bitten by cat, initial encounter; E78.00 Pure hypercholesterolemia, unspecified; N80.9 Endometriosis, unspecified; R12 Heartburn; Z85.3 Personal history of malignant neoplasm of breast
CPT/HCPCS: 99213; G0463

== ENCOUNTER 2024-03-11 07:40 | Outpatient (CLI) | payer OTHER, SELFPAY ==
--- NOTE | ~2024-03-11 | NM_ITS ---
EXAMINATION: NM hepatobiliary w pharm DATE: 03/11/2024 09:28 INDICATION: Nausea and vomiting COMPARISON: None. TECHNIQUE: 5 mCi Tc-99m mebrofenin (Choletec) was administered intravenously. Scintigraphic images o f the abdomen were obtained for one hour. 2 mcg sincalide (Kinevac) was administered by slow intraven ous infusion, and imaging was continued for 30 minutes. Gallbladder ejection fraction was calculated by the technologist. FINDINGS: There is normal clearance of radiotracer from the blood pool. There is homogeneous tracer uptake by t he liver. Activity progresses to the gallbladder and bowel. The gallbladder ejection fraction (GBEF) is 1% (normal 10-90%, but most patient with gallbladder dysfunction have GBEF < 35% which does overl ap with the normal range). IMPRESSION: 1. Essentially akinetic gallbladder with markedly decreased ejection fraction consistent with gallbl adder dysfunction or chronic cholecystitis in the appropriate clinical setting. Reviewed, dictated and finalized at location B. N FURNISHINGS INSTALLER IMPRESSION: 1. Essentially akinetic gallbladder with markedly decreased ejection fraction consistent with gallbladder dysfunction or chronic cholecystitis in the appropr iate clinical setting.
== END 2024-03-11 07:41 | disposition home or self-care (01) ==
PROVIDERS: PCP Physician Assistant Medical; Visit Provider Nurse Practitioner Family
DX: R93.2 Abnormal findings on diagnostic imaging of liver and biliary tract (principal)
CPT/HCPCS: 78227; A9537; J2805

== ENCOUNTER 2024-04-03 07:48 | Outpatient (CLI) | payer OTHER, SELFPAY ==
--- NOTE | ~2024-04-03 | NM_ITS ---
EXAM: NM gastric emptying study DATE: 04/03/2024 14:02 INDICATION: Nausea and vomiting TECHNIQUE: A gastric emptying study was performed using the methodology of Amadna MAYO, et al. J Nucl Med 2007; 48:568-572. The patient was given a meal consisting of 2 scrambled eggs labeled with 0.97 mCi Tc-99m sulfur colloid, 2 slices of toast, two packages of jam, and approximately 120 mL of water. Simultaneous anterior and posterior 1-min images of the abdomen were obtained with the patient supin e at multiple time points over a total period of 4 hours. The geometric mean of anterior and posterio r views was determined, and the percentage retention was calculated for each time point. COMPARISON: None. FINDINGS: Gastric retention of the radiotracer-labeled meal was 87%, 75%, and 31% at the 1-hour, 2-hour, and 4- hour time points, respectively. With this technique, apparent rapid gastric emptying is suggested by <30% gastric retention at 1 hour. Delayed gastric emptying is defined by gastric retention of >90% at 1 hour, >60% retention at 2 hours, or >10% retention at 4 hours. IMPRESSION: 1. Delayed gastric emptying. Reviewed, dictated and finalized at location A. FABRIC INSPECTOR
== END 2024-04-03 07:49 | disposition home or self-care (01) ==
PROVIDERS: PCP Physician Assistant Medical; Visit Provider Nurse Practitioner Family
DX: K30 Functional dyspepsia (principal)
CPT/HCPCS: 78264; A9541

== ENCOUNTER 2024-05-18 07:49 | Outpatient (CLI) | payer OTHER, SELFPAY ==
--- OUTSIDE RECORDS SUMMARY | 2024-05-18 07:53 | XMS_ITS | Continuity of Care Document ---
Author Organization [employer] [facility] Address [address] [place] [address] [address] [place] [address] Phone Care Team Providers Care Tooling Engineer Name Role Phone Donald JAE Marla Unavailable [...] Therapy Therapeutic Activities Neuromuscular Re-Ed Manual Therapy Therapeutic [...] Date Provider Providers Copied on Encounter [facility] [address], [place], [place], [id number], [place] tel:[phone] [facility] No Information Donald Gutiérrez. . Referring Provider: Delfino Cesar Laura [address], [place], [address]. tel:[phone] [place] [address], [address] [place], [place] [address], [place], [place], [id number], tel:[phone] [facility] No Information Donald Gutiérrez. . Referring Provider: Delfino Cesar Laura [address], [place], [address]. tel:[phone] [place] [address] [place], [place] [address], [place], [place], [id number], tel:[phone] [facility] No Information Arleth Barker. . Referring Provider: Delfino Cesar [facility]lene [facility] [address], [place], [address]. tel:[phone] [place] [address] [place], [place] [address], [place], [place], [id number], tel:[phone] [facility] No Information Arleth Barker. . Referring Provider: Delfino Cesar BrigetteKaylene [address], [place], [address]. tel:[phone] [place] [address] [place], [place] [address], [place], [place], [id number], tel:[phone] [facility] No Information Arlethdoreen Barker. . Referring Provider: Delfino Cesar BrigetteKaylene [address], [place], [address]. tel:[phone] [facility] [address] [place], [place] [address], [place], [place], [id number], tel:[phone] [facility] No Information Arleth Barker. . Referring Provider: Delfino Cesar BrigetteKaylene [address], [place], [address]. tel:[phone] [facility], [place], [place], [id number], [place] tel:[phone] [facility] No Information Arleth Mj. . Referring Provider: Delfino Cesar BrigetteKaylene [address], [place], [address]. tel:[phone] [place] [address] [address], [place], [place], [id number], [place] tel:[phone] [facility] No Information Arleth Mj. . Referring Provider: Laura Albright [address], [place], [address]. tel:[phone] [place], [place] [address], [place], [place], [address], tel:[phone] [facility] No Information Arleth Mj. . Referring Provider: Laura Albright [address], [place], [address]. tel:[phone] [place], [place] [address], [place], [place], [id number], tel:[phone] [facility] No Information Arleth Mj. . Referring Provider: Laura Albright [address], [place], [address]. tel:[phone] [facility], [place], [place], [id number], [place] tel:[phone] [facility] No Information Arleth Mj. . Referring Provider: Delfino Cesar BrigetteKaylene [address], [place], [address]. tel:[phone] [facility], [place], [place], [address], [place] tel:[phone] [facility] No Information Arleth Barker. . Referring Provider: Delfino Cesar, Laura [address], [place], [address]. tel:[phone] [place], [place] [address], [place], [place], [address], tel:[phone] [facility] No Information Arleth Barker. . Referring Provider: Delfino Cesar Laura [address], [place], [address]. tel:[phone] [place] [address] [address], [place], [place], [address], [place] tel:[phone] [facility] No Information Arlethalex Barker. . Referring Provider: Delfino Cesar BrigetteKaylene [address], [place], [address]. tel:[phone] [place], [place] [address], [place], [place], [address], tel:[phone] [facility] No Information Arleth Barker. . Referring Provider: Delfino Cesar BrigetteKaylene [address], [place], [address]. tel:[phone] [place] [address] [place], [place] [address], [place], [place], [id number], tel:[phone] [facility] No Information Arleth Barker. . Referring Provider: Delfino Cesar BrigetteKaylene [address], [place], [address]. tel:[phone] [place], [place] [address], [place], [place], [address], tel:[phone] [facility] No Information Arleth Barker. . Referring Provider: Delfino Cesar BrigetteKaylene [address], [place], [address]. tel:[phone] [place], [place] [address], [place], [place], [id number], [place] tel:[phone] [facility] No Information Arleth Barker. . Referring Provider: Delfino Cesar, Laura [facility] [address], [place], [address]. tel:[phone] [place] [address] [address], [place], [place], [address], tel:[phone] [facility] No Information Arleth Barker. . Referring Provider: Delfino Cesar Laura [facility] [address], [place], [address]. tel:[phone] [place] [address], [address], [place], [place], [id number], tel:[phone] [facility] No Information Arleth Barker. . Referring Provider: Delfino Cesar BrigetteKaylene [facility] [address], [place], [address]. tel:[phone] [place] [address] [address], [place], [place], [address], tel:[phone] [facility] No Information Arleth Barker. . Referring Provider: Delfino Cesar BrigetteKaylene [facility] [address], [place], [address]. tel:[phone] [place] [address] [address], [place], [place], [address], tel:[phone] [facility] No Information Arleth Barker. . Referring Provider: Delfino Cesar BrigetteKaylene [facility] [address], [place], [address]. tel:[phone] [place], [place] [address], [place], [place], [address], tel:[phone] [facility] No Information Arleth Barker. . Referring Provider: Delfino Cesar, [address] [facility] [address], [place], [address]. tel:[phone] Family History Family Member Type Diagnosis Age At Onset No Information Payers Payer name Insurance type Covered green party ID Renan caba(annie Rey [id number] Geena GALEANO LI 00 Social History Type [...]
--- OUTSIDE RECORDS SUMMARY | 2024-05-18 07:53 | XMS_ITS | Encounter Summary ---
Author Organization [facility] Address [address] [place] [address] Care Team Providers Care Backfiller Name Role Phone Bhavna Ventura PA-C Primary Care Provider [phone] Petey York MD Primary Care Provider [phone] Encounter Details Date Type Department Care Team ([facility] st Contact Info) Description 12/28/2022 [employer] Message Enc [facility] Orthopaedic Surgery-[place] [address] [place] [address] [place] [address] [place] [address] pain Social History Tobacco Use Types Packs/Day Years Used Date Smoking Tobacco: Never Smokeless Tobacco: Never Alcohol Use Standard Drinks/Week Comments No 0 (1 standard drink = 0.6 oz pur e alcohol) AUDIT-C Answer Date Recorded Frequency of Alcohol Consumption Never 10/27/2018 Average Number of Drinks Not on file 019 Frequency of Binge Drinking Not on file 10/11 PHQ-2 Answer Date Recorded Patient Health Questionnaire-2 Score 0 06/21/2022 Comments No Sex and Gender Information Value Date Recorded Sex Assigned at Not on file Legal Sex Female 5:20 PM CDT Gender Identity Not on file Sexual Orientation Not on file documented as of this encounter Plan of Treatment Not on file documented as of this encounter Visit Diagnoses Not on filedocumented in this encounter Care Teams Backfiller Relationship Specialty Start Date End Date Bhavna Ventura PA-C [facility] [place] [address] PCP - General PHYSICIAN RECORDS COORDINATOR 12/24/21 01/16/23 Petey York MD [facility] [place] [address] PCP - General FAMILY PRACTICE 01/17/23 documented as of this encounter
--- OUTSIDE RECORDS SUMMARY | 2024-05-18 07:54 | XMS_ITS | Referral Summary ---
Author Organization [facility] [employer] Address [address] [place] [address] Care Team Providers Care Direct Mail Coordinator Name Role Phone Ryan Metz MD Primary Care Provider [phone] Source Comments [facility] Affiliates and Associated Physician Practices is amultiple site organization consisting of ambulatory clinics and hospital sitesin [place], [place], [place] and [place]. This disclosure is being madepursuant to the Care Everywhere program and may not contain all information available regarding this patient. Last updated 17.[facility] [employer] Allergies Active Allergy Reactions Criticality Noted Date Comments Doxycycline Nausea and/or Vomiting 12/13/2017 Medications * Be aware that medications may not be up to date on this document. Alwaysverify current medications with the patient. Medication Sig Dispensed Refills Start Date End Date Status norethindrone-ethinyl estradiol (BALZIVA) 0.4-35 MG-MCG tabletIndications:Con traceptive Therapy Take 1 tablet by mouth once daily Reasons: Control Treatment Active Active Problems Problem Noted Date Diagnosed Date Acute pyelonephritis 12/14/2017 Acute kidney injury 12/13/2017 Social History Tobacco Use Types Packs/Day Years Used Date Smoking Tobacco: Never Smokeless Tobacco: Never Tobacco Cessation:Counseling Given: Yes Alcohol Use Standard Drinks/Week Comments Yes 0 (1 standard drink = 0.6 oz pur e alcohol) 2-3 drinks per month Sex and Gender Information Value Date Recorded Sex Assigned at Not on file Gender Identity Not on file Sexual Orientation Not on file Last Filed Vital Signs Vital Sign Reading Time Taken Comments Blood Pressure 128/76 12/14/2017 12:32 PM CDT Pulse 70 12/14/2017 12:32 PM CDT Temperature 36.8 C (98.2 F) 12/14/2017 12:32 PM CDT Respiratory Rate 18 12/14/2017 12:32 PM CDT Oxygen Saturation 98% 12/14/2017 12:32 PM CDT Inhaled Oxygen Concentration - - Weight 88.3 kg (194 lb 9.6 oz) 12/13/2017 4:53 P M CDT Height 162.6 cm (5' 4 ) 12/13/2017 4:53 PM CDT Body Mass Index 33.4 12/13/2017 4:53 PM CDT Functional Status Functional Status Response Date of Assess ment Is person deaf or have serious hearing difficult y? No 12/14/2017 Is person blind or have serious difficulty seein g? No 12/14/2017 Does person have serious dif ficulty walking/climbing stairs? No 12/14/2017 Does person have difficulty dressing/bathing? No 12/14/2017 Does person have difficulty doing errands alone? No 12/14/2017 Cognitive Status Response Date of Assessm ent Does person have difficulty concentrating/remembering/making decisions? No 12/14/2017 Plan of Treatment Not on file Advance Directives * Full Code (Latest Code Status on File) Date Activated Date Inactivated Comments 12/13/2017 6:14 PM 12/14/2017 4:52 PM Care Teams Direct Mail Coordinator Relationship Specialty Start Date End Date Ryan Metz MD [address] [place] [address] PCP - General 05/15/17
--- OUTSIDE RECORDS SUMMARY | 2024-05-18 07:54 | XMS_ITS | Referral Summary ---
Author Organization [facility] Address [address] [place] [phone] Care Team Providers Care Paint Prep Technician Name Role Phone Uziel Teofilo Jones MD Unavailable Arian Eaton MD Unavailable [phone] Nathan Fish MD Unavailable [phone] Shara Monreal MD Unavailable Malorie Malcolm NP Unavailable Petey York MD Primary Care Provider [phone] Encounters Date Type Department Care Team Description 05/06/2024 Orders Only [facility] [address] [place] [phone] Nathan Fish MD Invasive ductal carcinoma of breast, female, right (HCC) (Primary Dx); Malignant 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, estrogen receptor negative (HCC) 05/06/2024 Documentation [facility] [address] [place] [phone] Inessa Heart RC 05/06/2024 2:00 PM HALL DIRECTOR Office Visit [facility] Radiation Oncology [address] [place] [phone] Arian Eaton MD Malignant 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, estrogen receptor negative (HCC) (Primary Dx) 05/06/2024 2:45 PM HALL DIRECTOR Office Visit [facility] [address] [place] [address] [address] [place] [phone] Nathan Fish MD Malignant 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, estrogen receptor negative (HCC) (Primary Dx) 02/29/2024 Telephone [facility] [address] [facility] [address] [place] [address] Jocelin [place] RN Follow-Up Call 24-48 Hours; Test Results 02/28/2024 10:30 AM HALL DIRECTOR - 02/28/2024 11:59 PM HALL DIRECTOR Hospital Encounter [facility] [address] [facility] [address] [place] [address] Abnormal MRI, breast Discharge Disposition: Discharge to home or self care 02/28/2024 7:24 AM HALL DIRECTOR - 02/28/2024 11:59 PM HALL DIRECTOR Hospital Encounter [facility] [address] [place] [address] Abnormal MRI, breast Discharge Disposition: Discharge to home or self care from Last 3 Months Allergies Active Allergy Reactions Criticality Noted Date Comments Sulfamethoxazole-Trimetho prim Unknown 08/16/2023 Carboplatin Hives,Itching,Swell ing,Rash,Flushing (skin) High 09/24/2021 Swelling in hands, acid reflux Doxycycline Nausea & Vomiting Low 12/13/2017 Nitrofurantoin Anxiety,Itching,Julius h High 10/27/2018 Oxycodone Vomiting Low 10/20/2021 Oxycodone-Acetaminophen Nausea & Vomiting Low 12/31 Rosuvastatin Rash Medium 07/14/2023 Medications ALPRAZolam (XANAX) 0.25 mg tabletIndicati ons:anxiety Take 1 tablet (0.25 mg total) by mouth as needed for anxiety 08/25/19 20 Active bempedoic acid (Nexletol) 180 mg tablet Take 180 mg by mouth daily Active cetirizine (ZyrTEC) 10 mg tablet daily Active EpiPen 2-Laurent 0.3 mg/0.3 mL auto-injection syringe as directed intramuscularly once for 30 days Active montelukast (SINGULAIR) 10 mg tablet Take 1 tablet (10 mg total) by mouth daily 07/24/19 24 Active levothyroxine (SYNTHROID) 75 mcg tablet TAKE 1 TABLET(75 MCG) BY MOUTH FACE BOSS BEFORE BREAKFAST 90 tablet 1 11/03/19 24 Active Linzess 72 mcg capsule Take 1 capsule (72 mcg total) by mouth daily Active omeprazole (PriLOSEC) 40 mg capsule Take 1 capsule (40 mg total) by mouth daily 04/30/19 25 Active Active Problems Problem Noted Date Diagnosed Date Breast pain, right 06/27/2022 Invasive ductal carcinoma of breast, female, rig ht 07/30/2021 Encounter for fitting and adjustment of vascular catheter 07/30/2021 Overview (07/30/2021): Added automatically from request for surgery [id number] Malignant neoplasm 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, estrogen receptor negative 07/23/2021 Cancer Staging:Clinical stage from 07/20/2021:Stage IB(cT1c, cN0, cM0, G3, ER-, MD-, HER2-) - Signed by Arian Eaton MD on 07/30/2021 Pathologic stage from 02/10/2022:No Stage Recommended(ypT0, pN0(sn), cM0, GX, ER- , MD-, HER2-) - Signed by Arian Eaton MD on 03/09/2022 Endometriosis 10/22/2019 Overview (10/22/2019): Added automatically from request for surgery [id number] Pelvic and perineal pain 10/22/2019 Overview (10/22/2019): Added automatically from request for surgery [id number] Persistent proteinuria 10/25/2018 Recurrent UTI 10/25/2018 Asymptomatic microscopic hematuria 10/25/2018 Acute kidney injury 12/13/2017 Resolved Problems Problem Noted Date Diagnosed Date Resolved Date Post-operative state 02/22/2022 024 Social History Tobacco Use Types Packs/Day Years Used Date Smoking Tobacco: Never Smokeless Tobacco: Never Tobacco Cessation:Counseling Given: Not Answered Alcohol Use Standard Drinks/Week Comments Yes 0 (1 standard drink = 0.6 oz pur e alcohol) every few months AUDIT-C Answer Date Recorded Q1: How often do you have a drink containing alcohol? Never 09/18/2023 Q2: How many drinks containi ng alcohol do you have on a typical day when you are drinking? Patient does not drink Q3: How often do you have si x or more drinks on one occasion? Never 09/18/2023 Exercise Vital Sign Answer Date Recorde d Days of Exercise per Week 0 days 2018 Minutes of Exercise per Session 0 min 01/03/2019 Personal Safety Answer Date Recorded Have you ever been in or are you currently in a harmful physical or emotional relationship or is someone making you feel afraid or unsafe? Denies 07/14/2023 Comments No Sex and Gender Information Value Date Recorded Sex Assigned at Not on file Legal Sex Female 12:06 AM HALL DIRECTOR Gender Identity Not on file Sexual Orientation Not on file Occupation Industry Job Start Date Job End Date [employer] Not on file Not on file Not on file Last Filed Vital Signs Vital Sign Reading Time Taken Comments Blood Pressure 126/82 05/06/2024 1:56 PM HALL DIRECTOR Pulse 98 05/06/2024 1:56 PM HALL DIRECTOR Temperature 36.1 C (97 F) 05/06/2024 2:30 PM HALL DIRECTOR Respiratory Rate 18 05/06/2024 1:56 PM HALL DIRECTOR Oxygen Saturation 100% 05/06/2024 1:56 PM HALL DIRECTOR Inhaled Oxygen Concentration - - Weight 95.7 kg (211 lb) 05/06/2024 2:30 PM HALL DIRECTOR Height 162.6 cm (5' 4 ) 05/06/2024 2:30 PM HALL DIRECTOR Body Mass Index 36.22 05/06/2024 2:30 PM HALL DIRECTOR Plan of Treatment Not on file Medical Devices Implanted Type Area Larriman Device Identifier Shelf Expiration Date Model / Serial / Lot Lokalite Magseed 18ga 7cm Marker Breast Biopsy [id number] Right: Breast Buffer Inc [id number] 12/10/2025 [id number] / / [id number] Lokalite [facility] Trimark Second Marker Breast Biopsy Disposable Trimark Td 2s 13-Mr - [id number] Implanted:Qty: 1 on 02/28/2024 by Consuelo Altman MD at [facility] Right: Breast Lokalite [employer] [id number] 06/13/2025 TRIMARK TD 2S 13-MR / / [id number] Explanted Type Area Larriman Device Identifier Shelf Expiration Date Model / Serial / Lot [employer] Access Systems Powerport Isp Mri Airguard 8fr 1 Lumen Attachable Catheter Open Latex Free [id number] - [id number] Implanted:Qty: 1 on 08/06/2021 by Koffi Brandon MD at [facility] Explanted:Qty: 1 Right: Chest [employer] Access Systems 09/09/2022 [id number] / / [id number] Procedures Procedure Name Priority Date/Time Associated Diagnosis Comments MAMM POST CLIP PLACEMENT RIGHT Schedule Routine, Read Routine (OP Routine) 02/28/2024 10:50 AM HALL DIRECTOR Abnormal MRI, breast MRI GUIDED BREAST BIOPSY RIGHT Schedule Routine, Read Routine (OP Routine) 02/28/2024 10:28 AM HALL DIRECTOR Abnormal MRI, breast SURGICAL PATHOLOGY Routine 02/28/2024 10:01 AM HALL DIRECTOR Abnormal MRI, breast PAP AND HPV, REFLEX TO HPV GENOTYPES Routine 09/18/2023 4:32 AM CDT Screening for cervical cancer Screening for human papillomavirus (HPV) HEPATITIS C ANTIBODY Routine 07/11/2022 1:00 PM CDT from Last 3 Months or Most Recently Relevant to Health Maintenance Results * Mammo Post Clip Placement Right (02/28/2024 10:50 AM HALL DIRECTOR) Anatomical Region Laterality Modality Breast Right Mammography 02/28/2024 11:3 1 AM HALL DIRECTOR Addenda Addendum by Consuelo Altman MD on 02/29/2024 4:10 PM HALL DIRECTOR Pathology report for MRI guided core needle biopsy of the right breast describes hyalinized fibroadenoma and focal fat necrosis. There is no atypical hyperplasia or malignancy. Imaging findings and benign pathology findings are concordant. No further follow-up of this finding is required. The patient is due for annual diagnostic mammogram in July 2024. Biopsy results be called to the office of the referring physician and to the patient by the nursing staff of the [facility]. Electronically signed by: Consuelo Altman M.D. Impressions 02/28/2024 11:31 AM HALL DIRECTOR Successful MRI guided biopsy of enhancement in the lumpectomy site of the right breast. Pathology report is pending. ASSESSMENT: Post-procedure mammogram for marker placement. Electronically signed by: Consuelo Altman M.D. Narrative 02/28/2024 11:31 AM HALL DIRECTOR MRI GUIDED CORE NEEDLE BIOPSY RIGHT BREAST, RIGHT POST PROCEDURE MAMMOGRAM 2-D CLINICAL HISTORY: 40-year-old womann for MRI guided biopsy of increasing enhancement in the lumpectomy bed of the upper central right breast. PROCEDURE: The risks, and potential complications of percutaneous biopsy, including bleeding and infection, were reviewed with the patient. Her written informed consent was obtained. A time-out procedure was performed. The patient was positioned in the breast biopsy coil and images were obtained prior to and following intravenous administration of 18 mL of meglumine gadoterate. Enhancement at the lumpectomy site was identified and targeted for biopsy. The skin over the upper outer breast breast was prepped in usual sterile fashion. 1% lidocaine was used for subcutaneous anesthesia and 1% lidocaine with epinephrine was infiltrated in the expected biopsy site. A skin tata was made with a #11 blade. A 9-gauge [facility] vacuum-assisted biopsy needle was advanced to the targeted tissue and multiple tissue samples obtained. A barbell shaped biopsy marker was placed. Post biopsy scanning confirmed sampling in the area of interest. The excised tissue was placed in formalin and transported to pathology. Manual pressure was applied until hemostasis was obtained. The skin incision was closed with Steri-Strips. Postbiopsy 2D mammography demonstrates postbiopsy changes in the upper central breast at the lumpectomy site, and that the biopsy site marker is in the expected location. There is no postbiopsy hematoma. Density: The breasts are heterogeneously dense, which may obscure small masses. An icepack was applied to the biopsy site. The patient was given written and verbal post-biopsy instructions. She tolerated the procedure well, and left the [facility] in good condition, without evidence of immediate complication. us Nathan Fish MD IMG MAMMO PROCEDURES Edite d Result - Final * MRI Guided Breast Biopsy Right (02/28/2024 10:28 AM HALL DIRECTOR) Anatomical Region Laterality Modality Breast Right Magnetic Resonan ce 02/28/2024 11:3 1 AM HALL DIRECTOR Addenda Addendum by Consuelo Altman MD on 02/29/2024 4:10 PM HALL DIRECTOR Pathology report for MRI guided core needle biopsy of the right breast describes hyalinized fibroadenoma and focal fat necrosis. There is no atypical hyperplasia or malignancy. Imaging findings and benign pathology findings are concordant. No further follow-up of this finding is required. The patient is due for annual diagnostic mammogram in July 2024. Biopsy results be called to the office of the referring physician and to the patient by the nursing staff of the [facility]. Electronically signed by: Consuelo Altman M.D. Impressions 02/28/2024 11:31 AM HALL DIRECTOR Successful MRI guided biopsy of enhancement in the lumpectomy site of the right breast. Pathology report is pending. ASSESSMENT: Post-procedure mammogram for marker placement. Electronically signed by: Consuelo Altman M.D. Narrative 02/28/2024 11:31 AM HALL DIRECTOR MRI GUIDED CORE NEEDLE BIOPSY RIGHT BREAST, RIGHT POST PROCEDURE MAMMOGRAM 2-D CLINICAL HISTORY: 40-year-old womann for MRI guided biopsy of increasing enhancement in the lumpectomy bed of the upper central right breast. PROCEDURE: The risks, and potential complications of percutaneous biopsy, including bleeding and infection, were reviewed with the patient. Her written informed consent was obtained. A time-out procedure was performed. The patient was positioned in the breast biopsy coil and images were obtained prior to and following intravenous administration of 18 mL of meglumine gadoterate. Enhancement at the lumpectomy site was identified and targeted for biopsy. The skin over the upper outer breast breast was prepped in usual sterile fashion. 1% lidocaine was used for subcutaneous anesthesia and 1% lidocaine with epinephrine was infiltrated in the expected biopsy site. A skin tata was made with a #11 blade. A 9-gauge [facility] vacuum-assisted biopsy needle was advanced to the targeted tissue and multiple tissue samples obtained. A barbell shaped biopsy marker was placed. Post biopsy scanning confirmed sampling in the area of interest. The excised tissue was placed in formalin and transported to pathology. Manual pressure was applied until hemostasis was obtained. The skin incision was closed with Steri-Strips. Postbiopsy 2D mammography demonstrates postbiopsy changes in the upper central breast at the lumpectomy site, and that the biopsy site marker is in the expected location. There is no postbiopsy hematoma. Density: The breasts are heterogeneously dense, which may obscure small masses. An icepack was applied to the biopsy site. The patient was given written and verbal post-biopsy instructions. She tolerated the procedure well, and left the [facility] in good condition, without evidence of immediate complication. us Nathan Fish MD [facility] MRI PROCEDURES Edited Result - Final * Surgical pathology (02/28/2024 10:01 AM HALL DIRECTOR) Tissue (Breast biopsy, needle core) 02/28/2024 10:01 AM HALL DIRECTOR Narrative PATHOLOGY [facility] - 02/29/2024 12:16 PM HALL DIRECTOR [address] [address] Tele: Jocelin Browne MD - Power Chisel Operator Note to Patients: This report may contain a detailed description of human tissue sent by a health care provider to the laboratory for pathologic evaluation. The content of this report is essential for diagnosis and may provide important critical findings. This information may be unfamiliar to patients to review without a medical professional present. It is advised that the patient review this report in the presence of a health care provider who can answer questions and explain the details. SURGICAL PATHOLOGY REPORT Patient Name: LATRICE TATE Address: [address] [place] [address] Gender: F : 1990 (Age: 34) Service: Location: , Hospital #: [id number] Patient Type: [facility] ANCILLARY Taken: 02/28/2024 Received 02/28/2024 Reported: 02/29/2024 Physician(s): [facility] - Dr. Altman DIAGNOSIS: Breast, right breast abnormal enhancement, needle biopsy: - Hyalinized fibroadenoma - Focal fat necrosis [facility]/02/29/2024 12:16 Examining Pathologist: Mildred Gonzales M.D. Report Reviewed and Electronically Signed By Mildred Gonzales M.D. SPECIMEN TYPE: A: RIGHT BREAST ABNORMAL ENHANCEMENT CLINICAL IMPRESSION AND HISTORY: Abnormal MRI breast GROSS DESCRIPTION: Received in formalin labeled with LATRICE KYNION and right breast abnormal enhancement are multiple yellow-monsivais cores fibroadipose tissue ranging from 0.5 cm to 3.1 cm. Specimen is inked, placed in filter paper. The specimen was collected 10:01 AM placed in fixative at 10:10 AM on 02/28/2024. Following standard processing protocols, this specimen will be fixed for no less than 6 hours and no greater than 72 hours. Exceptions to this protocol will be noted in the final report. The specimen is entirely submitted in cassettes labeled A1-A3. [facility] MICROSCOPIC DESCRIPTION: Microscopic examination supports the above captioned diagnosis. There is no atypical hyperplasia or malignancy. Clerical Data Follows A; 13392 REPORT IMAGES AND/OR SCANNED DOCUMENTS ONLY VIEWABLE IN PDF FORMAT The immunohistochemical test(s) cited in this report, if any, was developed and its performance characteristics determined by [facility] Department. It has not been cleared or approved by the U.S. Food and Drug Administration. The FDA has determined that such clearance or approval is not necessary. This test is used for clinical purposes. It should not be regarded as investigational or for research. [facility] is certified under the Clinical Laboratory Improvement Amendments of 1988 (CLIA) as qualified to perform high complexity testing. Immunostains were performed on formalin-fixed paraffin embedded tissue using a polymer diaminobenzidine chromogen detection system. Antibodies used may include clone SP1 (rabbit monoclonal, estrogen receptor), clone 1E2 (rabbit monoclonal progesterone receptor), Ki-67 (rabbit monoclonal, 30-9), CD117 (rabbit polyclonal, c-kit), and anti-Her-2/lori (4B5) (rabbit monoclonal primary antibody). In the event that immunohistochemistry or special stains have been performed, attending physician has confirmed appropriateness of controls. Frozen section, operating room consultation, gross examination and dissection, and case sign out may have been performed in part or completely in the following laboratories: [facility], [address] [facility] [place] [address] [facility], [address], [place] [address]. us Nathan Fish MD LAB PATHOLOGY ORDERABLES F inal Result PATHOLOGY [facility] Laboratory Receiving [address] [place], [place] [id number] * (ABNORMAL) Pap and HPV, reflex to HPV Genotypes (09/18/2023 4:32 AM CDT) Clinical indication Comment(A) [facility] - 01 Comment: EPITHELIAL CELL ABNORMALITY. ATYPICAL SQUAMOUS CELLS OF UNDETERMINED SIGNIFICANCE (ASC-US). Recommendation Comment(A) [facility] - 01 Comment:Suggest follow up as clinically appropriate. Specimen adequacy: Comment [facility] - 01 Comment: Satisfactory for evaluation. Endocervical and/or squamous metaplastic cells (endocervical component) are present. Clinician provided ICD10 Comment [facility] - 01 Comment: Z12.4 Z11.51 Performed by Comment [facility] - 01 Comment:Regis Oconnell, [employer] hnologist (ASCP) Electronically signed by Comment [facility] - 01 Comment:Kim Falcon MD, [place] thologist . . [facility] - 01 Pathologist provided ICD10 Comment [facility] - 01 Comment:R87.610 Note: Comment [facility] - 01 Comment: The Pap smear is a screening test designed to aid in the detection of premalignant and malignant conditions of the uterine cervix. It is not a diagnostic procedure and should not be used as the sole means of detecting cervical cancer. Both false-positive and false-negative reports do occur. Test methodology Comment [facility] - 01 Comment: This liquid based ThinPrep(R) pap test was screened with the use of an image guided system. HPV Aptima Negative Negative LAB [facility] 02 Comment: This nucleic acid amplification test detects fourteen high-risk HPV types (16,18,31,33,35,39,45,51,52,56,58,59,66,68) without differentiation. HPV Genotype Reflex Comment [facility] - 01 Comment:Criteria not met, HP V Genotype not performed. Thin prep 09/18/2023 4:32 AM CDT 09/18/2023 Narrative [facility] - 09/20/2023 2:11 PM CDT Performed at: - [address] [id number] Animal Care Giver: Yumiko Hubbard MD, Phone: [phone] Performed at: 02 - [address] [id number] Animal Care Giver: Yumiko Hubbard MD, Phone: [phone] Specimen Comment: Source.............Cervix;Endocervix Specimen Comment: No. of containers..01 ThinPrep Vial Shara Monreal MD LAB CYTOLOGY ORDERABLES F inal Result Performing Organization Address City/[facility]/ZIP Co de Phone Number [facility] - 01 LAB [facility] 02 * Hepatitis C antibody (07/11/2022 1:00 PM CDT) Hep C Ab Nonreactive Nonreactive [facility] Comment: Interpretive Data Nonreactive: Antibodies to HCV not detected. Does NOT exclude the possibility of recent exposure to HCV. Equivocal: Equivocal for HCV antibodies. Supplemental molecular testing will be automatically performed to determine infection status in accordance with current CDC screening recommendations. Reactive: Positive for HCV antibodies. This may represent current or past HCV infection. Supplemental molecular testing will be automatically performed to determine current infection status in accordance with current CDC screening recommendations. Interpretive data was last revised on 2019. Blood 07/11/2022 1:00 PM CDT 07/11/2022 7:17 PM CDT Shara Monreal MD LAB MICROBIOLOGY - GENERA L ORDERABLES Edited Result - Final [facility] [address] Department [place] [address] from Last 3 Months or Most Recently Relevant to Health Maintenance Insurance HMO HMO O Care Teams Paint Prep Technician Relationship Specialty Start Date End Date Petey York MD [address] [place] [address] PCP - General Family Medicine 03/01/22 Teofilo Triplett MD [address] [place] [address] Medical Oncologist/Highway Maintenance Technician Hematology and Oncology 07/22/21 Arian Eaton MD [address] [place] [address] Consulting Physician Radiation Oncology 07/22/21 Nathan Fish MD [address] [facility] [address] [place] [address] Consulting Physician Surgical Oncology 07/28/21 Shara Monreal MD [address] [place] [address] Consulting Physician Obstetrics and Gynecology 07/28/21 Malorie Malcolm NP [address] [place] [address] Nurse Practitioner Surgery 12/22/21
--- OUTSIDE RECORDS SUMMARY | 2024-05-18 07:54 | XMS_ITS | Clinical Summary ---
Author Organization [facility] Address [address] [place] [phone] Care Team Providers Care Console Operator Name Role Phone Uziel Teofilo Jones MD Unavailable [phone] Arian Eaton MD Unavailable [phone] Nathan Fish MD Unavailable [phone] Shara Monreal MD Unavailable [phone] Malorie Malcolm NP Unavailable [phone] Petey York MD Primary Care Provider [phone] Allergies Active Allergy Reactions Criticality Noted Date [...] tablet TAKE 1 TABLET(75 MCG) BY MOUTH SMOKE JUMPER SUPERVISOR BEFORE BREAKFAST 90 tablet 1 11/03/19 24 [...] (07/30/2021): Added automatically from request for surgery [id number] Malignant neoplasm 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, estrogen receptor negative 07/23/2021 Cancer Staging:Clinical stage from 07/20/2021:Stage IB(cT1c, cN0, cM0, G3, ER-, GA-, HER2-) - Signed by Arian Eaton MD on 07/30/2021 Pathologic stage from 02/10/2022:No Stage Recommended(ypT0, pN0(sn), cM0, GX, ER- , GA-, HER2-) - Signed by Arian Eaton MD on 03/09/2022 Endometriosis 10/22/2019 Overview (10/22/2019): Added automatically from request for surgery [id number] Pelvic and perineal pain 10/22/2019 Overview (10/22/2019): Added automatically from request for surgery [id number] Persistent proteinuria 10/25/2018 Recurrent UTI 10/25/2018 Asymptomatic microscopic hematuria 10/25/2018 Acute kidney injury 12/13/2017 Resolved Problems Problem Noted Date Diagnosed Date Resolved Date Post-operative state 02/22/2022 024 Encounters Date Type Department Care Team Description 05/06/2024 2:45 PM CERTIFIED MASTER SAFE TECHNICIAN Office Visit [facility] [address] [place] [phone] Nathan Fish MD Malignant 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, estrogen receptor negative (HCC) (Primary Dx) 05/06/2024 2:00 PM CERTIFIED MASTER SAFE TECHNICIAN Office Visit [facility] Radiation Oncology Formerly named [facility] [place] [address] Arian Eaton MD Malignant 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, estrogen receptor negative (HCC) (Primary Dx) 05/06/2024 Orders Only [facility] [address] [facility] [address] [place] [address] Nathan Fish MD Invasive ductal carcinoma of breast, female, right (HCC) (Primary Dx); Malignant 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, estrogen receptor negative (HCC) 05/06/2024 Documentation [facility] [address] [place] [phone] [facility] 02/29/2024 Telephone [facility] - Imaging [address] [place] [address] [address] [place] [phone] Jocelin Jones, YANNA Follow-Up Call 24-48 Hours; Test Results 02/28/2024 10:30 AM CERTIFIED MASTER SAFE TECHNICIAN - 02/28/2024 11:59 PM CERTIFIED MASTER SAFE TECHNICIAN Hospital Encounter [facility] [address] [place] [phone] Abnormal MRI, breast Discharge Disposition: Discharge to home or self care 02/28/2024 7:24 AM CERTIFIED MASTER SAFE TECHNICIAN - 02/28/2024 11:59 PM CERTIFIED MASTER SAFE TECHNICIAN Hospital Encounter [facility] [address] [place] [phone] Abnormal MRI, breast Discharge Disposition: Discharge to home or self care from Last 3 Months Surgical History Surgery Date Site/Laterality Comments ADENOIDECTOMY TONSILLECTOMY adenoids and tonsils MYRINGOTOMY W/ TUBES LAPAROSCOPIC ENDOMETRIOSIS FULGURATION MYOMECTOMY BREAST BIOPSY 07/20/2021 Right US GUIDED BIOPSY LYMPH NODE SUPERFICIAL LEFT 08/10/2021 N/A US GUIDED ASPIRATION ABSCESS HEMATOMA CYST SOFT TISSUE 03/10/2022 N/A PORT REMOVAL 07/14/2023 N/A BREAST BIOPSY 02/28/2024 Right Medical History Medical History Date Comments Recurrent UTI Microscopic hematuria Proteinuria Endometriosis Migraines Pyelonephritis Anxiety Pulmonary nodule seen on imaging study Seen at OSH in 2017 and 2018. Stable. Cancer (HCC) Breast cancer (HCC) History of radiation therapy History of chemotherapy Family History Medical History Relation Name Comments Hypertension Brother Diabetes Father Hypertension Father Cancer Father's Brother Breast cancer Father's Sister Diabetes Maternal Grandfather Cancer Maternal Grandmother Coronary artery disease Maternal Grandmother Diabetes Maternal Grandmother Diabetes type II Maternal Grandmother Stroke Maternal Grandmother CKD-stage I Mother Hypertension Mother Positive VIKA Mother Breast cancer Mother's Sister Leukemia Other Diabetes Paternal Grandfather Diabetes Paternal Grandmother Anesthesia problems Neg Hx Relation Name Status Comments Brother Father Father's Brother Father's Sister Maternal Grandfather Maternal Grandmother Mother Mother's Sister Other Paternal Grandfather Paternal Grandmother Social History Tobacco Use Types Packs/Day Years [...] on file Legal Sex Female 12:06 AM CERTIFIED MASTER SAFE TECHNICIAN Gender Identity Not on file Sexual Orientation Not on file Occupation Industry Job Start Date Job End Date [employer] Not on file Not on file Not on file Obstetrics History Para Term AB IAB SAB Ectopic Multiple Livin g Live Births 0 0 0 0 0 0 0 0 0 0 0 Last Filed Vital Signs Vital Sign Reading Time Taken Comments Blood Pressure 126/82 05/06/2024 1:56 PM CERTIFIED MASTER SAFE TECHNICIAN Pulse 98 05/06/2024 1:56 PM CERTIFIED MASTER SAFE TECHNICIAN Temperature 36.1 C (97 F) 05/06/2024 2:30 PM CERTIFIED MASTER SAFE TECHNICIAN Respiratory Rate 18 05/06/2024 1:56 PM CERTIFIED MASTER SAFE TECHNICIAN Oxygen Saturation 100% 05/06/2024 1:56 PM CERTIFIED MASTER SAFE TECHNICIAN Inhaled Oxygen Concentration - - Weight 95.7 kg (211 lb) 05/06/2024 2:30 PM CERTIFIED MASTER SAFE TECHNICIAN Height 162.6 cm (5' 4 ) 05/06/2024 2:30 PM CERTIFIED MASTER SAFE TECHNICIAN Body Mass Index 36.22 05/06/2024 2:30 PM CERTIFIED MASTER SAFE TECHNICIAN Plan of Treatment Health Maintenance Due Date Last Done Comments Depression Screening 1990 Varicella Vaccines (1 of 2 - 13+ 2-dose series) 01/06/2005 DTaP/Tdap/Td Vaccine (7 - Td or Tdap) 10/16/2016 10/16/2006, 06/10/1997, 07/05/1993, Additional history exists Influenza Vaccine (#1) 2023 2, 01/22/2004, 01/06/2003 Cervical Cancer Screening 09/17/2024 09/18/2023 Regular Well Visit/Exam 18-64 09/17/2024 09/18/2023 Hepatitis B Screening Completed 1990 , 1990, 1990 Hepatitis C Screening Completed 07/11/2022, 019 HPV Vaccines Aged Out No longer eligi ble based on patient's age to complete this topic Pneumococcal vaccine <65 Aged Out No longer eligible based on patient's age to complete this topic Medical Devices Implanted Type Area Gas Compressor Turbine Operator Device Identifier Shelf Expiration Date Model / Serial / Lot [employer] Magseed 18ga 7cm Marker Breast Biopsy [id number] Right: Breast [employer] [id number] 12/10/2025 [id number] / / [id number] [employer] [facility] Trimark Second Marker Breast Biopsy Disposable Trimark Td 2s 13-Mr - [id number] Implanted:Qty: 1 on 02/28/2024 by Consuelo Altman MD at [facility] Right: Breast [employer] [id number] 06/13/2025 TRIMARK TD 2S 13-MR / / [id number] Explanted Type Area Gas Compressor Turbine Operator Device Identifier Shelf Expiration Date Model / Serial / Lot [employer] Powerport Isp Mri Airguard 8fr 1 Lumen Attachable Catheter Open Latex Free [id number] - [id number] Implanted:Qty: 1 on 08/06/2021 by Koffi Brandon MD at [facility] Explanted:Qty: 1 Right: Chest [employer] 09/09/2022 [id number] / / [id number] Procedures Procedure Name Priority Date/Time Associated Diagnosis Comments MAMM POST CLIP PLACEMENT RIGHT Schedule Routine, Read Routine (OP Routine) 02/28/2024 10:50 AM CERTIFIED MASTER SAFE TECHNICIAN Abnormal MRI, breast MRI GUIDED BREAST BIOPSY RIGHT Schedule Routine, Read Routine (OP Routine) 02/28/2024 10:28 AM CERTIFIED MASTER SAFE TECHNICIAN Abnormal MRI, breast SURGICAL PATHOLOGY Routine 02/28/2024 10:01 AM CERTIFIED MASTER SAFE TECHNICIAN Abnormal MRI, breast PAP AND HPV, REFLEX TO HPV GENOTYPES Routine 09/18/2023 4:32 AM CDT Screening for cervical cancer Screening for human papillomavirus (HPV) HEPATITIS C ANTIBODY Routine 07/11/2022 1:00 PM CDT from Last 3 Months or Most Recently Relevant to Health Maintenance Results * Mammo Post Clip Placement Right (02/28/2024 10:50 AM CERTIFIED MASTER SAFE TECHNICIAN) Anatomical Region Laterality Modality Breast Right Mammography 02/28/2024 11:3 1 AM CERTIFIED MASTER SAFE TECHNICIAN Addenda Addendum by Consuelo Altamn MD on 02/29/2024 4:10 PM CERTIFIED MASTER SAFE TECHNICIAN Pathology report for MRI guided core needle [...] patient by the nursing staff of the [facility]. Electronically signed by: Consuelo Altman M.D. Impressions 02/28/2024 11:31 AM CERTIFIED MASTER SAFE TECHNICIAN Successful MRI guided biopsy of enhancement in the lumpectomy site of the right breast. Pathology report is pending. ASSESSMENT: Post-procedure mammogram for marker placement. Electronically signed by: Consuelo Altman M.D. Narrative 02/28/2024 11:31 AM CERTIFIED MASTER SAFE TECHNICIAN MRI GUIDED CORE NEEDLE BIOPSY RIGHT BREAST, [...] made with a #11 blade. A 9-gauge [facility] vacuum-assisted biopsy needle was advanced [...] tolerated the procedure well, and left the [facility] in good condition, without evidence of immediate complication. us Nathan Fish MD IMG MAMMO PROCEDURES Edite d Result - Final * MRI Guided Breast Biopsy Right (02/28/2024 10:28 AM CERTIFIED MASTER SAFE TECHNICIAN) Anatomical Region Laterality Modality Breast Right Magnetic Resonan ce 02/28/2024 11:3 1 AM CERTIFIED MASTER SAFE TECHNICIAN Addenda Addendum by Consuelo Altman MD on 02/29/2024 4:10 PM CERTIFIED MASTER SAFE TECHNICIAN Pathology report for MRI guided core needle [...] patient by the nursing staff of the [facility]. Electronically signed by: Consuelo Altman M.D. Impressions 02/28/2024 11:31 AM CERTIFIED MASTER SAFE TECHNICIAN Successful MRI guided biopsy of enhancement in the lumpectomy site of the right breast. Pathology report is pending. ASSESSMENT: Post-procedure mammogram for marker placement. Electronically signed by: Consuelo Altman M.D. Narrative 02/28/2024 11:31 AM CERTIFIED MASTER SAFE TECHNICIAN MRI GUIDED CORE NEEDLE BIOPSY RIGHT BREAST, [...] made with a #11 blade. A 9-gauge [facility] vacuum-assisted biopsy needle was advanced [...] tolerated the procedure well, and left the [facility] in good condition, without evidence of immediate complication. us Nathan Fish MD IMG MRI PROCEDURES Edited Result - Final * Surgical pathology (02/28/2024 10:01 AM CERTIFIED MASTER SAFE TECHNICIAN) Tissue (Breast biopsy, needle core) 02/28/2024 10:01 AM CERTIFIED MASTER SAFE TECHNICIAN Narrative PATHOLOGY [facility] - 02/29/2024 12:16 PM CERTIFIED MASTER SAFE TECHNICIAN [address] [address] Tele: Jocelin Browne MD - Subgrade Roller Operator Note to Patients: This report may [...] PATHOLOGY REPORT Patient Name: LATRICE TATE Address: [address] [place] [address] Gender: F : 1990 (Age: 34) Service: Location: , Hospital #: [id number] Patient [place] [facility] Taken: 02/28/2024 Received 02/28/2024 Reported: 02/29/2024 Physician(s): [facility] - Dr. Altman DIAGNOSIS: Breast, right breast abnormal enhancement, needle biopsy: - Hyalinized fibroadenoma - Focal fat necrosis lkb/02/29/2024 12:16 Examining Pathologist: Mildred Gonzales M.D. Report [...] is entirely submitted in cassettes labeled A1-A3. [facility] MICROSCOPIC DESCRIPTION: Microscopic examination supports the above captioned diagnosis. There is no atypical hyperplasia or malignancy. Clerical Data Follows A; [id number] REPORT IMAGES AND/OR SCANNED DOCUMENTS ONLY VIEWABLE IN PDF FORMAT The immunohistochemical test(s) cited in this report, if any, was developed and its performance characteristics determined by [facility] Pathology Department. It has not been cleared or approved by the U.S. Food and Drug Administration. The FDA has determined that such clearance or approval is not necessary. This test is used for clinical purposes. It should not be regarded as investigational or for research. [facility] Laboratory is certified under the Clinical Laboratory [...] part or completely in the following laboratories: [facility], [address], [place] [address] [facility], [address] [facility] [address] [facility] [address], [place] [address]. Nathan Fish MD LAB PATHOLOGY ORDERABLES F inal Result PATHOLOGY [facility] Laboratory Receiving [address] [place], [place] [phone] * (ABNORMAL) Pap and HPV, reflex to [...] system. HPV Aptima Negative Negative [facility] Comment: This nucleic acid amplification test detects fourteen high-risk HPV types (16,18,31,33,35,39,45,51,52,56,58,59,66,68) without differentiation. HPV Genotype Reflex Comment [facility] - 01 Comment:Criteria not met, HP V Genotype not performed. Thin prep 09/18/2023 4:32 AM CDT 09/18/2023 Narrative [facility] - 09/20/2023 2:11 PM CDT Performed at: - [address] [id number] Hog Counter: Yumiko Hubbard MD, Phone: [phone] Performed at: - [address] [id number] Hog Counter: Yumiko Hubbard MD, Phone: [phone] Specimen Comment: Source.............Cervix;Endocervix Specimen Comment: No. of containers..01 ThinPrep Vial Shara Monreal MD LAB CYTOLOGY ORDERABLES F inal Result Performing Organization Address [facility]/ZIP Co de Phone Number [facility] - [facility] 02 * Hepatitis C antibody (07/11/2022 1:00 PM CDT) Hep C Ab Nonreactive Nonreactive [facility] Comment: Interpretive Data Nonreactive: Antibodies to [...] GENERA L ORDERABLES Edited Result - Final [facility] [address] Department [place] [address] from Last 3 Months or Most Recently Relevant to Health Maintenance [facility] [id number] [place], [place] [id number] Care Teams Console Operator Relationship Specialty Start Date End Date Petey York MD [address] [place], [place] [phone] PCP - General Family Medicine 03/01/22 Teofilo Triplett MD [address] [place] [address] Medical Oncologist/Pharmacy Technician [facility] 07/22/21 Arian Eaton MD [address] [place]PT [place] [address] Consulting Physician Radiation Oncology 07/22/21 Nathan Fish MD [address] [place] [address] Consulting Physician Surgical Oncology 07/28/21 Shara Monreal MD [address] [place], [place] [phone] Consulting Physician Obstetrics and Gynecology 07/28/21 Malorie Malcolm, LANEY [address] [place] [address] Nurse Practitioner Surgery 12/22/21
--- OUTSIDE RECORDS SUMMARY | 2024-05-18 07:54 | XMS_ITS ---
Author Organization [facility] Address [address] [place] [address] Care Team Providers Care Oem Sales Manager Name Role Phone Chela PRAJAPATI, Dr Angelo Primary Care Provider Nita Naqvi Unavailable [phone] REASON FOR VISIT SCIT - Traditional Schedule Allergy Immunotherapy Encounters Encounter Location Date Provider Diagnosis [address] [address] 05/15/2024 Nita Conrad Allergic rhinitis du e to pollen J30.1 ; Other allergic rhinitis J30.89 ; Allergic rhinitis due to animal (cat) (dog) hair and dander J30.81 and Other chronic allergic conjunctivitis H10.45 Assessments Encounter Date Diagnosis (ICD Code) Assessment Notes Treatment Notes Treatment Clinical Notes Section Notes 05/15/2024 Allergic rhinitis due to pollen (ICD-10 - J30.1) 05/15/2024 Other allergic rhinitis (ICD-10 - J30.89) 05/15/2024 Allergic rhinitis due to animal (cat) (dog) hair and dander (ICD-10 - J30.81) 05/15/2024 Other chronic allergic conjunctivitis (ICD-10 - H10.45) Plan Of Treatment Next Appt Details Follow Up: As scheduled, Kacie son: Provider Name:Nita felton, 05/20/2024 05:00:00 PM, [address] [place], [address], Provider Name:Nita felton, 05/30/2024 05:00:00 PM, [address] [place] [address], [phone], Progress Notes * Latrice BRAYDOB:1990 (34 yo F)Acc No.[id number]:05/15/2024 SCIT-Aeroallergen Patient: Latrice ROMERO Provider: James Conrad MD :1990 A ge:34 Y S ex:Female Date:05/15/2024 Address:[address] [place], [place] [phone] Pcp:Dr Petey York MD Subjective: * Chief Complaints: * 1 . SCIT - Traditional Schedule Allergy Immunotherapy. * HPI: * Introduction: The patient is here for scheduled immunotherapy. Please see the attached specialty form regarding the specifics of the administration of these vaccines. As per our protocol, they must undergo a screening health questionnaire (medication changes, reaction(s) to last immunotherapy dose(s), current health status, ACT (if appropriate), self-injectable epinephrine on patient(?) and peak flow (if appropriate)). Also, the patient must wait in our office for 30 minutes after receiving the vaccine(s). Furthermore, every patient must have an epinephrine pen (self-injectable) with them at the time of administration--and carry if for the following 1.5 hours after they leave our office. The patient must also have taken their antihistamine the day of the injection, preferably 2 hours prior. The consent form for SCIT (subcutaneous immunotherapy) is on file. * Medical History: Objective: * Vitals: Assessment: * Assessment: 1. A llergic rhinitis due to pollen - J30.1 (Primary) 2 . O ther allergic rhinitis - J30.89 3 . A llergic rhinitis due to animal (cat) (dog) hair and dander - J30.81 4 . O ther chronic allergic conjunctivitis - H10.45 Plan: * Treatment: * Procedure Codes: 9 5117 IMMUNOTHERAPY INJECTIONS * Preventive Medicine: Counseling: E xercise A void heavy lifting on days of allergy immunotherapy. M edication instruction: I njectable epinephrine education and instruction w/ discussion of signs and symptoms of anaphylaxis and reasons to seek urgent or emergent care, Watch for side effects of prescribed medications. E ducation: A ble to return demonstration of self-injectable epinephrine. * Follow Up: A s scheduled * Billing Information: * Visit Code: * Procedure Codes: 62381 IMMUNOTHERAPY INJECTIONS. * Electronic signature of An Conrad MD on 05/18/2024 at 07:54 AM RADIATION PROTECTION SPECIALIST Sign off status: Pending * Provider: James Conrad MD Date: 05/15/2024 Generated for Ortiz randall/Nina/Candiitting on: 0 05/18/2024 07:54 AM RADIATION PROTECTION SPECIALIST History and Physical Notes * HPI (History of Present Illness) Category Sub-Category Detail Notes Category Not es *Introduction The patient is here for scheduled immunotherapy. Please see the attached specialty form regarding the specifics of the administration of these vaccines. As per our protocol, they must undergo a screening health questionnaire (medication changes, reaction(s) to last immunotherapy dose(s), current health status, ACT (if appropriate), self-injectable epinephrine on patient(?) and peak flow (if appropriate)). Also, the patient must wait in our office for 30 minutes after receiving the vaccine(s). Furthermore, every patient must have an epinephrine pen (self-injectable) with them at the time of administration--and carry if for the following 1.5 hours after they leave our office. The patient must also have taken their antihistamine the day of the injection, preferably 2 hours prior. The consent form for SCIT (subcutaneous immunotherapy) is on file.
--- OUTSIDE RECORDS SUMMARY | 2024-05-18 07:54 | XMS_ITS | Clinical Summary ---
Author Organization [facility] Address [address] [place] [address] Care Team Providers Care Auto Clocks Repairer Name Role Phone Ryna Metz MD Primary Care Provider [phone] Source Comments [facility],non-[facility] Affiliates and Associated Physician Practices is amultiple site organization consisting of ambulatory clinics and hospital sitesin [place], [place], [place] and [place]. This disclosure is being madepursuant to the Care Everywhere program and may not contain all information available regarding this patient. Last updated 17.[facility] Allergies Active Allergy Reactions Criticality Noted Date [...] Acute pyelonephritis 12/14/2017 Acute kidney injury 12/13/2017 Family History Medical History Relation Name Comments Hypertension Brother Diabetes - Type 2 Father Hypertension Father CVA Maternal Grandmother Diabetes - Type 2 Maternal Grandmother Leukemia Maternal Grandmother Renal Disease Maternal Grandmother Cancer - Breast Paternal Aunt Relation Name Status Comments Brother Alive Father Alive Maternal Grandmother Mother Alive Paternal Aunt Social History Tobacco Use Types Packs/Day Years [...] Mass Index 33.4 12/13/2017 4:53 PM CDT Plan of Treatment Health Maintenance Due Date Last Done Comments PAP SMEAR 1990 HIV SCREENING 01/06/2007 HEPATITIS C SCREENING 01/02/2010 DTAP/TDAP/TD VACCINES (1 - Tdap) 01/06/2011 HEPATITIS B VACCINE (1 of 3 - 19+ 3-dose series) 01/06/2011 COVID-19 VACCINE ( - 2023-2 5 season) 2023 INFLUENZA VACCINE (#1) 2023 DEPRESSION SCREENING 03/13/2024 ZOSTER VACCINE (1 of 2) 01/06/2042 HIB VACCINE Aged Out No longer eligi ble based on patient's age to complete this topic HPV VACCINE Aged Out No longer eligi ble based on patient's age to complete this topic MENINGOCOCCAL (Group B) VACCINE Aged Out No longer eligible based on patient's age to complete this topic MENINGOCOCCAL VACCINE Aged Out No slick randy eligible based on patient's age to complete this topic PNEUMOCOCCAL VACCINE Aged Out No long er eligible based on patient's age to complete this topic Advance Directives * Full Code (Latest Code Status on File) Date Activated Date Inactivated Comments 12/13/2017 6:14 PM 12/14/2017 4:52 PM Care Teams Auto Clocks Repairer Relationship Specialty Start Date End Date Ryan Metz MD [address] [place] [id number] PCP - General 05/15/17
--- OUTSIDE RECORDS SUMMARY | 2024-05-18 07:54 | XMS_ITS ---
Author Organization [facility] Address [address] [place] [address] Care Team Providers Care Rock Duster Name Role Phone Chela PRAJAPATI, Dr Angelo Primary Care Provider Nita Naqvi Unavailable [phone] Allergies Allergen (clinical drug ingredient) Drug/Non Drug Allergy documented on EMR Reaction Allergy Type Onset Date Status sulfamethoxazole / trimethoprim Bactrim rash Drug Allergy Active carboplatin CARBOplatin unknown reaction Drug Allergy Active acetaminophen / oxycodone Percocet Vomiting Drug Allergy Active REASON FOR VISIT ARC follow-up - tolerating immunotherapy well, Rash follow-up- much improved Medications Medication SIG (Take, Route, Frequency, Duration) Notes Start Date End Date Status Fluticasone Propionate 50 MCG/ACT 2 spray(s) in each nostril once a day for 30 days Active Levothyroxine Sodium 75 MCG 1 tab(s) orally once a day Active Cetirizine HCl 10 MG 1 tab(s) orally once a day for 30 days Active Montelukast Sodium 10 MG 1 tab(s) orally once a day Active Omeprazole 40 MG Oral for 30 Days Active Vyfemla 35 MCG-0.4 MG 1 TAB(S) ORALLY ONCE A DAY *Please review and pick correct strength-formula tion from Medispan options. If intended option is not shown, discontinue and re-order from Quick Search* Not-Taking EpiPen 2-Addison 0.3 mg as directed intramuscularly once for 30 days Active EPIPEN 2-ADDISON 0.3 mg as directed intramuscularly once for 30 days Active CETIRIZINE 10 mg 1 tab(s) orally once a day for 30 days Active Medrol 4 MG as directed Orally daily for 6 days 04/01/2024 Not-Taking Famotidine 20 MG 1 tablet Orally Twice a day for 30 days 04/01/2024 Active Linzess 72 MCG Oral for 30 Days Active Cetirizine HCl 10 MG 1 tablet Orally Twice a day for 30 days 04/01/2024 Active Social History Tobacco Use: Social History Observation Description Date Details (start date - stop date) Never Smoker NA - NA Tobacco Control (Standard) Question Answer Notes Tobacco use: Nonsmoker Vital Signs Blood pressure systolic 108 mm Hg 04/29/19 25 Blood pressure diastolic 74 mm Hg 025 Height 64 in 04/29/2024 Weight 212.4 lbs 04/29/2024 BMI 36.45 kg/m2 04/29/2024 Oximetry 99 % 04/29/2024 Encounters Encounter Location Date Provider Diagnosis [address] [address] 04/29/2024 Nita Conrad Allergic rhinitis du e to pollen J30.1 ; Dermatitis, unspecified L30.9 ; Shortness of breath R06.02 ; Allergic rhinitis due to animal (cat) (dog) hair and dander J30.81 ; Other allergic rhinitis J30.89 and Other chronic allergic conjunctivitis H10.45 Assessments Encounter Date Diagnosis (ICD Code) Assessment Notes Treatment Notes Treatment Clinical Notes Section Notes 04/29/2024 Allergic rhinitis due to pollen (ICD-10 - J30.1) Latrice clearly suffers from atopic disease based upon our skin testing and clinical history. Accordingly, we have introduced a new, aggressive medication regimen, discussed nasal washes and allergy-specific avoidance measures. We also discussed adjunctive therapies including subcutaneous, specific allergen immunotherapy as relates to the treatment and prevention of atopic disease. She is tolerating SCIT without large local or systemic symptoms. She was instructed to carry her epinephrine autoinjector for 2 hours after leaving the office. 04/29/2024 Dermatitis, unspecified (ICD-10 - L30.9) unclear cause for rash and now much improved. Monitor for recurrence. We discussed potential patch testing in the future for chapped lips and difficulty with products. Recommend Aquaphor or Vaseline. 04/29/2024 Shortness of breath (ICD-10 - R06.02) PFTs normal and no improvement with albuterol. May be secondary to the new cat since improves with Zyrtec. ImmunoCAP positive for cat and dog but negative on intradermal testing and skin prick testing. Skin testing may be negative since cat has only been present in the home 6 months 04/29/2024 Allergic rhinitis due to animal (cat) (dog) hair and dander (ICD-10 - J30.81) 04/29/2024 Other allergic rhinitis (ICD-10 - J30.89) Follow allergen avoidance, meds and continue SCIT as an adjunctive treatment to current regimen 04/29/2024 Other chronic allergic conjunctivitis (ICD-10 - H10.45) Given ocular signs and symptoms I encouraged allergy avoidance measures and meds as above. If symptoms persist, consider adding additional medications including intraocular antihistamine/mas t cell stabilizer, PRN Plan Of Treatment Medication Medication Name Sig Start Date Stop Date Notes EPIPEN 2-ADDISON 0.3 mg as directed intramus cularly once for 30 days FLUTICASONE NASAL 50 mcg/inh 2 spray(s) in each nostril twice a day for 30 days CETIRIZINE 10 mg 1 tab(s) orally once a day for 30 days Treatment Notes Assessment Notes Allergic rhinitis due to pollen Latrice cl early suffers from atopic disease based upon our skin testing and clinical history. Accordingly, we have introduced a new, aggressive medication regimen, discussed nasal washes and allergy-specific avoidance measures. We also discussed adjunctive therapies including subcutaneous, specific allergen immunotherapy as relates to the treatment and prevention of atopic disease. She is tolerating SCIT without large local or systemic symptoms. She was instructed to carry her epinephrine autoinjector for 2 hours after leaving the office. Dermatitis, unspecified unclear cause fo r rash and now much improved. Monitor for recurrence. We discussed potential patch testing in the future for chapped lips and difficulty with products. Recommend Aquaphor or Vaseline. Shortness of breath PFTs normal and no i mprovement with albuterol. May be secondary to the new cat since improves with Zyrtec. ImmunoCAP positive for cat and dog but negative on intradermal testing and skin prick testing. Skin testing may be negative since cat has only been present in the home 6 months Other allergic rhinitis Follow allergen avoidance, meds and continue SCIT as an adjunctive treatment to current regimen Other chronic allergic conjunctivitis Gi demi ocular signs and symptoms I encouraged allergy avoidance measures and meds as above. If symptoms persist, consider adding additional medications including intraocular antihistamine/mast cell stabilizer, PRN Next Appt Details Follow Up: 6 Months, Reason: Evaluation and Management Provider Name:Nita felton, 05/20/2024 05:00:00 PM, [address] [place], [address], Provider Name:Nita felton, 05/30/2024 05:00:00 PM, [place], [address], Procedure Notes * Category Sub-Category Detail Notes SCIT Traditional Aeroallergen Schedul e Administration:: Full dosing administered per SOP and AAIC's titration schedule and/or specific instructions as outlined on the patient's shot record; see attached for specifics re: content, concentration, volume and location of injection(s). 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 She was last evaluated 04-01-2024. Rash has resolved, but some continued dry spots. She is currently using MACI products and reports improvement with oatmeal baths. She reports dry, flaky lips and increased in severity for a few months. She is currently applying Aquaphor and Yuridia lip balm. She has used Vaseline without improvement. She continues Zyrtec and Singulair on a d aily basis for rhinitis. No interval use of albuterol. She does not use Flonsae due to dryness. She is tolerating immunotherapy well anddenies any large local or systemic symptoms with immunotherapy, Improvement in shortness of breath. She is no longer using albuterol. Cancer has been in remission for over 1 year. She follows with Dr. Gregory at [facility]. She reports shortness of breath which started during chemotherapy 2021 and radiation finished . She received carboplatin and pembrolizumab. Shortness of breath improved after radiation but increased after bringing a new cat into her home July 2022. 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 The cat sleeps in her bed at night. No history of recurrent sinusitis. ImmunoCAPs showed sensitivity to cat, dog, grass, trees and weeds. Today, she reports no fevers, chills, night sweats or other constitutional symptoms. * ROS: A LLERGY: Positive p er the HPI and history, otherwise unremarkable.?runny nose Y es. s cratchy throat N o. i tchy eyes Y es. e ar fullness?No. s inus congestion Y es. S PECIAL SENSES: Positve for n one. c ataracts N o. g laucoma?No. l oss of hearing N o. i tching in ears N o. r inging in ears Y es.?loss of balance N o. l oss of smell N o. d ry eyes N o. e xcessive tearing N o. i tching eyes Y es. l oss of taste N o. c onjunctivitis N o. e ar infections N o. C ONSTITUTIONAL: weight gain Y es. l oss of appetite N o. f ever?No. w eakness N o. w eight loss N o. f atigue Y es. n ight sweats?No. P ositive for n one. E NT: cold N o. c ough N o. e pistaxis N o. h earing loss N o. c hange in voice N o. s ore throat N o. r inging in ears?Yes. s inus pain N o. P ositive p er the HPI and history, otherwise unremarkable. R ESPIRATORY: shortness of breath Y es. c hest pain N o. c hest congestion N o. c ough N o. P ositive p er the HPI and history, otherwise unremakable. O PHTHALMOLOGY: diminished vision N o. e ye irritation Y es. d rainage from eyes N o. b lurring of vision N o. P ositive for p er the HPI and history, otherwise unremarkable. i tching Y es. s ensitivity to light Y es. d ischarge N o. w atering Y es. s welling of the eyelids Y es. r edness Y es.? E NDOCRINOLOGY: fatigue Y es. p olydipsia N o. p olyuria N o. w eight loss N o. s leep disturbance Y es. c old intolerance N o. h eat intolerance N o. d iabetes N o. P ositive for n one. C ARDIOLOGY: chest pain N o. p alpitations N o. l eg edema?No. d izziness N o. s hortness of breath Y es. P ositive for n one. G ASTROENTEROLOGY: dysphagia N o. a bdominal pain N o. n ausea?No. v omiting N o. c onstipation Y es. d iarrhea Y es. b lood in stool?No. i ndigestion Y es. h emorrhoids N o. P ositive for n one. ? U ROLOGY: difficulty urinating N o. b lood in urine N o. f requent urination N o. u rinary incontinence N o. r ecurrent UTI N o. P ositive for n one. D ERMATOLOGY: rash N o. m ole N o. l umps N o. d ry or sensitive skin N o. h nichelle (urticaria) N o. a cne Y es. s kin cancer N o. P ositive for p er the HPI and history, otherwise unremakable. N EUROLOGY: headache Y es. t ingling numbness N o. s eizures N o. i nsomnia N o. m jose loss N o. d izziness N o. g ait abnormality N o. P ositive for n one. H EMATOLOGY/LYMPH: Positive for n one. M USCULOSKELETAL: joint swelling N o. j oint pain N o. l eg cramps N o. j oint stiffness N o. s ciatica N o. o steoporosis N o. f racture N o. c arpal tunnel N o. g out N o. P ositive for n one. P SYCHOLOGY: high stress level N o. d epression N o. s leep disturbances Y es. s uicidal ideation N o. e ating disorder N o. m ental or physical abuse N o. a nxiety N o. P ositive for n one. F EMALE REPRODUCTIVE: heavy periods N o. h ot flashes N o. a bnormal vaginal discharge N o. s exually active N o. i nfertility N o. f requent yeat infections N o. p elvic pain N o. b reast pain N o. n ipple discharge N o. A re you ? N o. A re you planning on a future pregancy? N o. A ll other review of systems per the HPI and history, otherwise unremarkable. * Medical History: * Surgical History: L umpectomy 2port removal 07/14/2023 * Hospitalization/Major Diagno stic Procedure: D enies Past Hospitalization * Family History: F ather: alive, diagnosed with Diabetes. M other: alive. There is no other family history of cancer, CF, diabetes, emphysema or heart disease. * Social History: M arital Status What is your marital status? s sergo A lcohol Screening Do you ever drink alcoholic beverages? N o S moking Have you ever smoked tobacco: n ever smoked Additional Findings: Tobacco Non-User C urrent non-smoker Are you a : n ever smoker R ecreational drug use Have you ever used recreational drugs? Y es What kind of drugs? m arijuana D etails on consumption of certain products? Do you regularly consume products with aspartame; Equal or NutraSweet? Y es Do you regularly consume products with artificial coloring??Yes Have you ever noticed worsening of your rash with these food items? N o E xercise What kind(s) of exercise do you perform regularly? w alking How often do you perform this exercise? d aily A re any of the following personal care products containing fragrance, dye or preservatives used regularly? Shampoo: N o Conditioner: N o Soap: N o Laundry Detergent: N o Fabric Softener: N o Deodorant: Y es Perfume, cologne, after shave: N o Air freshners or other scented products: N o Hair coloring dyes or rinses: N o Other: N o O ccupation Are you currenly employed? Y es Employment status? 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 N o How much work have you missed due to breathing difficulty within the past year? 1 week Please describe the effect of your illness on your job p oor concentration Do you have any pending or planned legal action against your current or former employer which pertains to your medical illness? N o Do you anticipate that your evaluation will be used in any legal action against your current employer or former employer? N o Have you had any job with high exposure to fumes, chemicals, dust or other noxious substances? N o Are you currently a student? N o E nvironmental History Living environment: a partment Where is the home located? r ural Age of home: 1 00 How many people live in the home? 1 H ome description Basement: N o Any water damage in basement? N o Smokers in the home? N o Smokers outside the home? N o Air Conditioning? Y es Central Air? Y es Forced air heating? Y es Gas or electric? e lectric Fireplace? N o Wood burning stove? N o Do you vacuum the home? Y es Air purification systems? Y es Is it a HEPA (high-efficiency particulate air filter)? Y es Ionizer on air purification system? N o Pillow and mattress dust-proof encasings? N o Do you use a humidifier? N o Do you own any pets? Y es What kind(s)? (click all that apply) c ats Where do your pets sleep? a nywhere in the house Fabric softeners used? N o Plants in the home? N o Is there carpeting in your bedroom? Y es Do you have [id number] carpeting? Y es What is the age of your mattress (years)? 1 Do you sleep with quilts or blankets or a duvet? Y es How many cats? 2 T obacco Control (Standard) Tobacco use: N onsmoker * Medications: T akingEpiPen 2-Addison 0.3 mg kit as directed intramuscularly once Cetirizine HCl 10 MG Tablet 1 tab(s) orally once a day Fluticasone Propionate 50 MCG/ACT Suspension 2 spray(s) in each nostril once a day Levothyroxine Sodium 75 MCG Tablet 1 tab(s) orally once a day Montelukast Sodium 10 MG Tablet 1 tab(s) orally once a day Omeprazole 40 MG Capsule Delayed Release Oral Linzess 72 MCG Capsule Oral Cetirizine HCl 10 MG Tablet 1 tablet Orally Twice a day Famotidine 20 MG Tablet 1 tablet Orally Twice a day Taking EpiPen 2-Addison 0.3 mg kit as directed intramuscularly once Taking Cetirizine HCl 10 MG Tablet 1 tab(s) orally once a day Taking Fluticasone Propionate 50 MCG/ACT Suspension 2 spray(s) in each nostril once a day Taking Levothyroxine Sodium 75 MCG Tablet 1 tab(s) orally once a day Taking Montelukast Sodium 10 MG Tablet 1 tab(s) orally once a day Taking Omeprazole 40 MG Capsule Delayed Release Oral Taking Linzess 72 MCG Capsule Oral Taking Cetirizine HCl 10 MG Tablet 1 tablet Orally Twice a day Taking Famotidine 20 MG Tablet 1 tablet Orally Twice a day Not-Taking/PRNEpiPen 2-Addison 0.3 mg kit as directed intramuscularly once CETIRIZINE 10 mg tablet 1 tab(s) orally once a day FLUTICASONE NASAL 50 mcg/inh spray 2 spray(s) in each nostril twice a day Medrol 4 MG Tablet Therapy Pack as directed Orally daily Vyfemla 35 MCG-0.4 MG TABLET 1 TAB(S) ORALLY ONCE A DAY , Notes to Pharmacist: *Please review and pick correct strength-formulation from Medispan options. If intended option is not shown, discontinue and re-order from Quick Search*Not-Taking/PRN EpiPen 2-Addison 0.3 mg kit as directed intramuscularly once Not-Taking/PRN CETIRIZINE 10 mg tablet 1 tab(s) orally once a day Not-Taking/PRN FLUTICASONE NASAL 50 mcg/inh spray 2 spray(s) in each nostril twice a day Not-Taking/PRN Medrol 4 MG Tablet Therapy Pack as directed Orally daily Not-Taking/PRN Vyfemla 35 MCG-0.4 MG TABLET 1 TAB(S) ORALLY ONCE A DAY , Notes to Pharmacist: *Please review and pick correct strength-formulation from Medispan options. If intended option is not shown, discontinue and re-order from Quick Search* * Allergies: P ercocet: VomitingCARBOplatin: unknown reactionBactrim: rash - Allergyno[Allergies Verified] Objective: * Vitals: B P:108/74mm Hg, HR:100/min, Pulse Oximetry:99%, Ht: 64 in, Wt: 212.4 lbs, BMI:36.45Index. * Examination: G eneral examination: General appearance: p leasant, well-developed, well-nourished. HEENT: c onjunctiva are clear bilaterally, no tenderness to palpation of the sinuses, TM's without evidence of acute infection, turbinates 2+ swollen and pale inferiorly bilaterally, clear rhinorrhea is present, no polyps noted, no septal perforation, posterior oropharynx is clear, no exudates, no tongue swelling, and uvula is midline. Oral cavity: n ormal, no lesions. Neck, thyroid : s upple, non-tender, no anterior cervical lymphadenopathy. Breasts : n ot performed. Heart: R RR, S1-S2, no murmurs, no rubs, no gallops. Lungs: c lear to auscultation and percussion in all lung cadleron, no wheezes or crackles. Neurologic exam: u nremarkable. Skin: n ormal, no rash, dermatographism, urticaria, angioedema. Peripheral pulses: n ormal (2+) bilaterally. Back: n ormal. Extremities: n ormal ROM, no clubbing, no cyanosis, no edema. Genitalia: n ot performed. Influenza Vaccine not administered R sravan: P atient Reason T ype of Patient Reason: R efused Assessment: * Assessment: 1. D ermatitis, unspecified - L30.9 (Primary) 2 . A llergic rhinitis due to pollen - J30.1 3 . S hortness of breath - R06.02 4 . A llergic rhinitis due to animal (cat) (dog) hair and dander - J30.81 5 . O ther allergic rhinitis - J30.89 6 . O ther chronic allergic conjunctivitis - H10.45 ? Plan: * Treatment: 2. A llergic rhinitis due to pollen Continue CETIRIZINE tablet, 10 mg, 1 tab(s), orally, once a day, 30 days, 30, Refills 0; S top FLUTICASONE NASAL spray, 50 mcg/inh, 2 spray(s), in each nostril, twice a day, 30 days; C ontinue EPIPEN 2-ADDISON kit, 0.3 mg, as directed, intramuscularly, once, 30 days, 1, Refills 0. Notes: Latrice clearly suffers from atopic disease based upon our skin testing and clinical history. Accordingly, we have introduced a new, aggressive medication regimen, discussed nasal washes and allergy-specific avoidance measures. We also discussed adjunctive therapies including subcutaneous, specific allergen immunotherapy as relates to the treatment and prevention of atopic disease. She is tolerating SCIT without large local or systemic symptoms. She was instructed to carry her epinephrine autoinjector for 2 hours after leaving the office. 3. S hortness of breath Notes: PFTs normal and no improvement with albuterol. May be secondary to the new cat since improves with Zyrtec. ImmunoCAP positive for cat and dog but negative on intradermal testing and skin prick testing. Skin testing may be negative since cat has only been present in the home 6 months ? 4. O ther allergic rhinitis Notes: Follow allergen avoidance, meds and continue SCIT as an adjunctive treatment to current regimen 5. O ther chronic allergic conjunctivitis Notes: Given ocular signs and symptoms I encouraged allergy avoidance measures and meds as above. If symptoms persist, consider adding additional medications including intraocular antihistamine/mast cell stabilizer, PRN * Procedures: S CIT: Traditional Aeroallergen Schedule A dministration: F ull dosing administered per SOP and AAIC's titration schedule and/or specific instructions as outlined on the patient's shot record; see attached for specifics re: content, concentration, volume and location of injection(s). * Procedure Codes: 9 6160 PT-FOCUSED HLTH RISK [id number] DOC MEDS VERIFIED W/PT OR [id number] IMMUNOTHERAPY INJECTIONS * Preventive Medicine: Counseling: M edication instruction: W atch for side effects of prescribed medications, Nasal steroid/antihistamine instruction: avoid septum. E ducation: G ENERAL EDUCATION: Our staff spent an additional 30 minutes in direct contact with the patient educating them on their current diagnoses and proper treatment and prevention of symptoms and the proper use of medications. E ducation 2: A RC EDUCATION: Our staff discussed the appropriate allergen avoidance measures and medication utilization including upper airway hygiene with daily nasal washes given the patient's clinical status and diagnoses. SCIT EDUCATION: Discussed allergy immunotherapy including the relative risks, benefits and alternatives to this treatment as an adjunctive measure to current therapy, Allergy Immunotherapy: Risks: bleeding, infection, allergic reaction, anaphylaxis = severe allergic reaction that can cause ; Benefits: reduced need for medications, improved symptoms, disease modification. Alternatives: watch/wait, change medication regimen, improve allergy avoidance measures, Our staff discussed the warning signs of anaphylaxis and the indications to use self-injectable epinephrine and seek urgent or emergent care. P atient education material sent to portal? Y es C are goal follow up plan Above Normal BMI Follow-up D ietary management education, guidance, and counseling * Follow Up: 6 Months (Reason: Evaluation and Management) * Billing Information: * Visit Code: 33457 Office Visit, Est Pt., Level 4. Modifiers: 25 * Procedure Codes: 66489 PT-FOCUSED HLTH RISK ASSMT. G8427 DOC MEDS VERIFIED W/[place]. [address] IMMUNOTHERAPY INJECTIONS. * [employer] Sign off status: Completed true * Provider: James Conrad MD Date: 0 04/29/2024 Generated for Ortiz randall/Nina/Denisse on: 0 05/18/2024 07:53 AM [employer] History and Physical Notes * HPI (History of Present Illness) Category Sub-Category Detail Notes Category Not es *Introduction I had the pleasure o f seeing Latrice Tate, a 34 year old with triple negative invasive ductal carcinoma, ARC and episodes of shortness of breath presenting for f/u evaluation of dermatitis. She was last evaluated 04-01-2024. Rash has resolved, but some continued dry spots. She is currently using MACI products and reports improvement with oatmeal baths. She reports dry, flaky lips and increased in severity for a few months. She is currently applying Aquaphor and Yuridia lip balm. She has used Vaseline without improvement. She continues Zyrtec and Singulair on a daily basis for rhinitis. No interval use of albuterol. She does not use Flonsae due to dryness. She is tolerating immunotherapy well and denies any large local or systemic symptoms with immunotherapy, Improvement in shortness of breath. She is no longer using albuterol. Cancer has been in remission for over 1 year. She follows with Dr. Gregory at [facility]. She reports shortness of breath which started during chemotherapy 2021 and radiation finished . She received carboplatin and pembrolizumab. Shortness of breath improved after radiation but increased after bringing a new cat into her home July 2022. 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 She brought a new cat into her home and has had another cat in her home 15 years. The cat sleeps in her bed at night. No history of recurrent sinusitis. ImmunoCAPs showed sensitivity to cat, dog, grass, trees and weeds. Today, she reports no fevers, chills, night sweats or other constitutional symptoms Examination Category Sub-Category Detail Notes Category Not es General examination HEENT: conjunctiva are clear bilaterally, no tenderness to palpation of the sinuses, TM's without evidence of acute infection, turbinates 2+ swollen and pale inferiorly bilaterally, clear rhinorrhea is present, no polyps noted, no septal perforation, posterior oropharynx is clear, no exudates, no tongue swelling, and uvula is midline Neck, thyroid : supple, non-tender, no anterior cervical lymphadenopathy Heart: RRR, S1-S2, no murmu rs, no rubs, no gallops Lungs: clear to auscultatio n and percussion in all lung calderon, no wheezes or crackles Abdomen: Extremities: normal ROM, no clubb ing, no cyanosis, no edema General appearance: pleasant, well-devel oped, well-nourished Skin: normal, no rash, magaly matographism, urticaria, angioedema Neurologic exam: unremarkable Oral cavity: normal, no lesions Breasts : not performed Peripheral pulses: normal (2+) bilatera lly Back: normal Genitalia: not performed Influenza Vaccine not administered Reason:: Kathy ent Reason Type of Patient Reason:: Refused
--- OUTSIDE RECORDS SUMMARY | 2024-05-18 07:54 | XMS_ITS ---
Author Organization [facility] Address [address] [place] [id number] Care Team Providers Care Cream Cheese Maker Name Role Phone Uziel Teofilo Jones MD Unavailable [phone] Arian Eaton MD Unavailable [phone] Nathan Fish MD Unavailable [phone] Shara Monreal MD Unavailable [phone] Malorie Malcolm NP Unavailable Petey York MD Primary Care Provider [phone] Active Problems Problem Noted Date Diagnosed Date Breast pain, right 06/27/2022 Invasive ductal carcinoma of breast, female, rig ht 07/30/2021 Encounter for fitting and adjustment of vascular catheter 07/30/2021 Overview (07/30/2021): Added automatically from request for surgery [id number] Malignant neoplasm 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, estrogen receptor negative 07/23/2021 Cancer Staging:Clinical stage from 07/20/2021:Stage IB(cT1c, cN0, cM0, G3, ER-, [place]-, HER2-) - Signed by Arian Eaton MD on 07/30/2021 Pathologic stage from 02/10/2022:No Stage Recommended(ypT0, pN0(sn), cM0, GX, ER- , [place]-, HER2-) - Signed by Arian Eaton MD on 03/09/2022 Endometriosis 10/22/2019 Overview (10/22/2019): Added automatically from request for surgery [id number] Pelvic and perineal pain 10/22/2019 Overview (10/22/2019): Added automatically from request for surgery [id number] Persistent proteinuria 10/25/2018 Recurrent UTI 10/25/2018 Asymptomatic microscopic hematuria 10/25/2018 Acute kidney injury 12/13/2017 Current Treatment and Therapy Plans IV Maintenance Therapy Plan w/ carrier fluid order* Plan Start Date:08/13/2021 Plan Provider:Teofilo Triplett MD Linked Problems Invasive ductal carcinoma of breast, female, right (HCC) Treatment Medications No medications scheduled. Past Treatment and Therapy Plans Oncology Chemotherapy Treatment Plan Name Start Date Discontinue Date Treatment Medications Discontinue Reason Plan Provider Cycles Pembrolizumab / PACLItaxel / CARBOplatin x 4 cycles followed by Pembrolizuamb / DOXOrubicin (ADRIAMYCIN) / Cyclophosphomide x 4 cycles followed by Pembrolizumab Monotherapy 21 Day Cycles - Breast 2 07/11/2022 CARBOplatin (PARAPLATIN) IVPB in 250 mLcycloPHOSphamide IVPB in 250 mL (vial 200 mg/mL)([id number])dexAME THasone (DECADRON)DOXOrubic in (ADRIAMYCIN) 2 mg/mLPACLitaxel (TAXOL)PACLItaxel (TAXOL) IVPB in 250 mLpembrolizumab (KEYTRUDA)pembroliz umab (KEYTRUDA) IVPB in 100 mL Patient Preference Teofilo Triplett MD 9 of 17 cycles planned Radiation Treatments * Course C1 03/29/2022 - 04/25/2022 Treatment Period Energy Fraction Dose Fractions Total Dose Plans Planned Tumor Bed Bst 04/20/2022 - 04/25/2022 250 4 / 1,000 Right Breast 03/29/2022 - 04/19/2022 266 16 / 4,256 Reference Points Delivered DVP_Boost 04/20/2022 - 04/25/2022 1,000 DVP_Right Breast 03/29/2022 - 04/19/2022 4,256 Lifetime Dose Tracking * Chemical Lifetime Dose Automatic Entry Manual Entr y doxorubicin 238.218 mg/m2 (480 mg) 238.218 mg/m2 (480 mg) 0 mg/m2 (0 mg) Fluoro Time 0.217 minutes 0.217 minutes 0 minutes cyclophosphamide 2,382.178 mg/m2 (4,800 mg) 2,382.178 mg/m2 (4,800 mg) 0 mg/m2 (0 mg) doxorubicin isotoxic equivalent (Please manually verify calculation) 238.218 mg/m2 (480 mg) 238.218 mg/m2 (480 mg) 0 mg/m2 (0 mg) Air kerma at the reference point (Ka,r) 0.001 mGy 0.001 mGy 0 mGy Treatment Summaries Malignant 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, estrogen receptor negative (HCC)* Images from the original note were not included. [facility] [id number] This Survivorship Care Plan is a cancer treatment summary and follow-up plan and is provided to youto keep with your health care records and to share with your primary care provider or any of your doctors and nurses. This summary is a brief record of major aspects of your cancer treatment not a detailed or comprehensive record of your care. You should review this with your cancer provider. Treatment Summary and Survivorship Care Plan for Breast Cancer General Information Patient name Latrice Tate (home) Date of 1990 Health Care Providers (Including Names, Institutions) Provider Name: Contact Information: Primary Care Physician Petey York MD [phone] Keanu Fish [phone] Arian Eaton [phone] Teofilo Triplett [phone] Plastic Surgeon Other Providers Treatment Summary Cancer Diagnosis Information Diagnosis Malignant 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, estrogen receptor negative (CMS/HCC) (HCC) Diagnosis date 07/20/2021 Staging information Cancer Staging Malignant 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, estrogen receptor negative (CMS/HCC) (HCC) Staging form: Breast, AJCC 8th Edition - Clinical stage from 07/20/2021: Stage IB (cT1c, cN0, cM0, G3, ER-, [place]-, HER2-) - Signed by Arian Eaton MD on 07/30/2021 - Pathologic stage from 02/10/2022: No Stage Recommended (ypT0, pN0(sn), cM0, GX, ER-, [place]-, HER2-) -Signed by Arian Eaton MD on 03/09/2022 Estrogen: Negative Estrogen: Negative Progesterone: Negative Progesterone: Negative HER2: Negative HER2: Negative Treatment Completed Surgery Surgery date 02/10/2022 Surgical procedure / location / findings Breast, right, Mag seed localized lumpectomy: - No evidence of residual malignancy - Biopsy site with surrounding fibrosis, hemosiderin and focal foreign body giant cell reaction consistent with treatment effect - Fibroadenoma, 0.2 cm - Fibroadenomatoid change Breast, new anterior and superior margin, excision: - No histopathologic abnormality Lymph node, right axillary sentinel lymph node, excision: - No evidence of malignancy in one lymph node (0/1) Radiation Radiation Treatments Active Plans Right Breast Most recent treatment: Dose planned: 266 cGy (fraction 16 on 04/19/2022) Total: Dose planned: 4,256 cGy Elapsed Days: 21 Tumor Bed Bst Most recent treatment: Dose planned: 250 cGy (fraction 4 on 04/25/2022) Total: Dose planned: 1,000 cGy Elapsed Days: 27 Reference Points DVP_Boost Most recent treatment: Dose given: 250 cGy (on 04/25/2022) Total: Dose given: 1,000 cGy Elapsed Days: 27 DVP_Right Breast Most recent treatment: Dose given: 266 cGy (on 04/19/2022) Total: Dose given: 4,256 cGy Elapsed Days: 21 Historical No historical radiation treatments to show. Systemic Therapy (chemotherapy, hormonal therapy, other) Pembrolizumab / PACLItaxel / CARBOplatin x 4 cycles followed by Pembrolizuamb / DOXOrubicin (ADRIAMYCIN) / Cyclophosphomide x 4 cycles followed by Pembrolizumab Monotherapy 21 Day Cycles - Breast Treatment goal Curative Status Active Start Date 08/13/2021 End Date 07/27/2022 (Planned) Provider Teofilo Triplett MD Chemotherapy DOXOrubicin (ADRIAMYCIN) 2 mg/mL IV syringe 120 mg 60 mL, 60 mg/m2 = 120 mg, intravenous, Once, 4 of 4 cycles Administration: 120 mg (10/22/2021), 120 mg (11/24/2021), 120 mg (12/17/2021), 120 mg (2022) pembrolizumab (KEYTRUDA) 200 mg in sodium chloride 0.9% 100 mL IVPB, 200 mg, intravenous, Once, 7 of 15 cycles Administration: 200 mg (08/13/2021), 200 mg (09/03/2021), 200 mg (09/24/2021), 200 mg (10/22/2021), 200 mg (11/24/2021), 200 mg (12/17/2021), 200 mg (2022) CARBOplatin (PARAPLATIN) 225 mg in sodium chloride 0.9% 250 mL IVPB (By AUC), 225 mg, intravenous, Once, 3 of 3 cycles Administration: 225 mg (08/13/2021), 225 mg (08/20/2021), 225 mg (09/03/2021), 225 mg (09/10/2021), 225 mg (09/24/2021), 225 mg (08/27/2021), 225 mg (09/17/2021) cyclophosphamide (CYTOXAN) 1,200 mg in sodium chloride 0.9% 250 mL IVPB, 600 mg/m2 = 1,200 mg, intravenous, Once, 4 of 4 cycles Administration: 1,200 mg (10/22/2021), 1,200 mg (11/24/2021), 1,200 mg (12/17/2021), 1,200 mg (2022) PACLitaxeL (TAXOL) 159 mg in sodium chloride 0.9% (PVC-FREE) 250 mL IVPB, 80 mg/m2 = 159 mg, intravenous, Once, 3 of 3 cycles Dose modification: 64 mg/m2 (original dose 80 mg/m2, Cycle 2) Administration: 159 mg (08/13/2021), 159 mg (08/20/2021), 129 mg (09/03/2021), 129 mg (09/10/2021), 129 mg (09/24/2021), 129 mg (10/01/2021), 159 mg (08/27/2021), 129 mg (09/17/2021) pegfilgrastim (NEULASTA ON-BODY) injection 6 mg, 6 mg, subcutaneous, Once, 2 of 2 cycles Lifetime Dose Tracking Lifetime Dose Tracking doxorubicin: 238.218 mg/m2 (480 mg) cyclophosphamide: 2,382.178 mg/m2 (4,800 mg) doxorubicin isotoxic equivalent: 238.218 mg/m2 (480 mg) Research Studies [id number] in REsults of Immune Checkpoint Inhibitor Tx (DiRECT):Prospective Study of Cancer Survivors Tx'd w anti-PD-1/antiPD-L1 Immunotherapy in a Community Oncology Setting Status On study Active Start Date 08/13/21 NCT [id number] Persistent symptoms or side effects that have continued after finishing treatment: Diffuse tanning and erythema over the entire right breast Family History Cancer Cancer-related family history includes Breast cancer in her mother's sister; Breast cancer (age of onset: 40) in her father's sister; Cancer in her father's brother and maternalgrandmother. Genetic Testing Lab Performed: Testing Complete Results [facility] 07/2021 Negative Tell your provider if there is a history of cancer in your family, if another member of your familywas diagnosed with cancer since your last visit. The following risk factors may indicate that breast cancer could run in the family: Hoahaoism heritage History of ovarian cancer in the patient or any 1st or 2nd degree relative Any 1st degree relative with breast cancer before the age of 50 Two or more 1st or 2nd degree relative diagnosed with breast cancer at any age Patient or relative diagnosed with bilateral breast cancer History of breast cancer in a male relative Treatment Ongoing No Follow-up Care Plan Your follow-up care plan is design to inform you and primary care providers regarding the recommended and required follow-up, cancer screening and routine health maintenance that is needed to maintain optimal health. Coordinating Provider When/How often Teofilo Triplett MD Every 3 months for year 1 to 3 Teofilo Triplett MD Every Indicated by provider for year [address] Arian Eaton Indicated by provider Petey York After 5 years, annual follow up Cancer Surveillance or other Recommended Tests Coordinating Provider Test How Often Teofilo Triplett MD - Year 1-5, Petey York MD - After year 5 Mammogram for remaining breast(s) Yearly Teofilo Triplett MD Cardiac monitoring Every 3 months while on Herceptin TRANSPLANTER ORCHID: No care steam press operator to display Pap/pelvic exam (woman only) As indicated by provider CT/PET and tumor markers. Not recommended in the absence of signs or symptoms of cancer recurrence Possible late- and long-term effects that someone with this type of cancer and treatment may experience: Lymphedema The risk for developing lymphedema varies across treatments, time and the patient. This may occur right after surgery or months to years after treatment. It affects 12 to 25% of patients. The risk increases with the removal of lymph nodes, radiation therapy and injury. Avoid blood pressure or blooddraw in affected arm if lymph nodes were removed. If you experience skin tightness, swelling, warmth or redness in your affected side, tell your provider right away. Physical therapy can improve lymph drainage. Talk with your provider about approved exercise. Avoid extreme temperature, injury or infection on the affected side. Talk to your provider about a compression stocking, especially when flying. It is important to remember that these symptoms can be due to other causes like diabetes or with normal aging. If these or any other new symptoms occur bring these to attention of your health care provider. These symptoms should be brought to the attention of your provider: Anything that represents a brand new symptom; Anything that represents a persistent symptom; Anything you are worried about that might be related to the cancer coming back. Please continue to see your primary care provider for all general health care recommended for a patient your age such as routine immunizations, and routine non-breast cancer screening like colonoscopy or bone density exams. Consult with your health care provider about prevention and screening for bone loss using bone density tests. Cancer survivors may experience issues with the areas listed below. If you have any concerns in these or other areas, please speak with your doctors or nurses to find out how you can get help with them. Anxiety and depression Emotional and mental health Fatigue Fertility Financial advice or assistance Insurance Memory or concentration loss Parenting Physical functioning School/work Sexual functioning Stopping smoking Weight changes Other A number of lifestyle/behaviors can affect your ongoing health, including the risk for the cancer coming back or developing another cancer. Discuss these recommendations with your doctor or nurse: Eat a healthy diet: focus on lean meats and proteins, more fruits, vegetables and whole grains and low in sugars and fats. Limit red meat and avoid processed meat. Maintain a healthy weight; avoid being overweight. Aim for a normal body mass index (BMI) of 18.5-24.9. Help learning to eat healthier, call the medical surgical tech at: [facility] . Have an active lifestyle, strive for 30 minutes of moderate exercise 5 times a week and strength orresistance training at least twice a week. Use broad-spectrum (UVA+UVB) sunscreen with SPF 30 or greater, is water resistant, limit time spentin the sun (10 am-4 pm), wear hat, wear UV protective clothing, wear sunglasses. Never use a tanning bed. Skin that was irradiated may be more sensitive over your lifetime. Do not smoke or chew tobacco; participate in a smoking cessation program. Limit alcohol intake, 1 drink per day for a woman and 2 drinks per day for a man. Resources you may be interested in: Journey forward--http://www.journeyforward.org/ Click For Patients Click Survivor Library for patients Cancer.Net--http://www.cancer.net/survivorship Livestrong--http://www.livestrong.org/ Livestrong Care Plan--http://www.livestrongcareplan.org/ National Cancer [place]--http://www.cancer.gov/cancertopics/factsheet/therapy/followup National Cancer [place] Facing Forward: Life After Cancer Treatment--http://www.cancer.gov/cancertopics/coping/mnxq-rucxb-xtustunzt National Coalition for Cancer Survivorship--http://www.canceradvocacy.org/ National Comprehensive Cancer Network-http://www.nccn.org/patients/resources NCCS Cancer Survival Toolbox-- http://www.canceradvocacy.org/toolbox/ CancerCare--http://www.cancercare.org/ Healthcare.gov (insurance marketplace)-- https://www.healthcare.gov/ Cancer and Careers--http://www.cancerandcareers.org/en [place] Cancer Society:The Survivorship Center--http://www.cancer.org/survivorshipcenter Cancer Support Community- http://www.cancersupportcommunity.org/ Cancer Rehabilitation--www.[facility]/rehab Resolved Problems Problem Noted Date Diagnosed Date Resolved Date Post-operative state 02/22/2022 024
--- OUTSIDE RECORDS SUMMARY | 2024-05-18 07:54 | XMS_ITS | Clinical Summary ---
Author Organization [facility] Address [facility]ly [facility] [place] [address] Care Team Providers Care Debridging Machine Operator Name Role Phone Petey York MD Primary Care Provider [phone] Allergies Active Allergy Reactions Criticality Noted Date Comments Carboplatin Unknown 08/12/2022 Patient unsure, states it started with her stomach Ciprofloxacin GI Upset Low 09/07/2023 Doxycycline Nausea Only 04/07/2019 Nitrofurantoin Rash,Itching,Anxiet y High 10/27/2018 Oxycodone Vomiting 10/20/2021 Rosuvastatin Rash Medium 07/14/2023 Sulfamethoxazole-Trimetho prim Unknown 08/16/2023 Medications ALPRAZolam (XANAX) 0.25 MG tablet Take 1 tablet (0.25 mg total) by mouth daily as needed. 3 Active VYFEMLA 0.4-35 MG-MCG tablet Take 1 tablet by mouth daily. 3 Active traMADol (ULTRAM) 50 MG tablet Take 1 tablet (50 mg total) by mouth every 6 (six) hours as needed. 3 Active levothyroxine (SYNTHROID) 75 MCG tablet TAKE 1 TABLET(75 MCG) BY MOUTH MOLECULAR BIOLOGY PROFESSOR BEFORE BREAKFAST 3 Active montelukast (SINGULAIR) 10 MG tablet Take 1 tablet (10 mg total) by mouth nightly at bedtime. Active NEXLETOL 180 MG Tab Take 180 mg by mouth daily. 4 Active cetirizine (ZYRTEC) 10 MG tablet Take 0.5 tablets (5 mg total) by mouth daily. Active EPIPEN 2-ADDISON 0.3 MG/0.3ML injection Inject 0.3 mLs (0.3 mg total) into the muscle as needed for Anaphylaxis. Active Active Problems Problem Noted Date Diagnosed Date Fall 08/17/2022 BMI 34.0-34.9,adult 08/17/2022 Left ankle sprain 08/16/2022 Assessment & Plan (04/25/2023 10:27 AM CLOTH TEARER): Recommendation at this time is to continue with her home exercise program for the ankle. Patient will be seen back as needed. Assessment & Plan (01/31/2023 6:49 PM CLOTH TEARER): We got her set up to go to [facility]. We will see her in 6-8 weeks. We will also get her started on a non-steroidal anti-inflammatory and a steroid if she needs it. Assessment & Plan (10/23/2022 6:21 PM CDT): Sprain strain to the anterior talofibular ligament and calcaneofibular ligament Recommendation at this time, she will continue with her exercises and follow up on an as needed basis. Assessment & Plan (09/20/2022 3:14 PM CDT): Recommendation at this time is get her set up for formal physical therapy. Air cast for added support. We'll see her back in four weeks. Assessment & Plan (08/16/2022 9:46 PM CDT): Recommendation at this time: Her injury is at least a grade two, so we will get her into a fracture boot. The patient is allowed weight bearing as tolerated. We will follow-up in 2-3 weeks for repeat evaluation, at which time we might consider getting her set up for an air cast. If her pain is being better controlled. Immunizations Name Administration Dates Next Due Dtap (Acel-Immune) 06/10/1997, 4,1992,1992, Dtp 07/05/1993 Hepatitis A (Havrix [address]) 10/16/2006 Hepatitis B Pediatric 1992,1992,12/12 Hib 07/05/1993 Hib (Prohibit) 07/05/1993,1992,1992 ,1992 Influenza (Generic) 01/05/2012,01/22/2004,2002 MMR 07/05/1993 MMR (MMRII) 06/10/1997 Meningococcal (Menomune) 10/16/2006 Opv 07/05/1993 Polio Opv (Generic) 06/10/1997,1992,1992 Tdap (Generic) 10/16/2006 Family History Medical History Relation Comments None Father None Mother Relation Status Comments Father Alive Mother Alive Social History Tobacco Use Types Packs/Day Years Used Date Smoking Tobacco: Never Passive Smoke Exposure: Never Smokeless Tobacco: Never Tobacco Cessation:Counseling Given: No Comments:na Alcohol Use Standard Drinks/Week Comments No 0 (1 standard drink = 0.6 oz pur e alcohol) AUDIT-C Answer Date Recorded Frequency of Alcohol Consumption Never 10/27/2018 Average Number of Drinks Not on file 019 Frequency of Binge Drinking Not on file 10/11 PHQ-2 Answer Date Recorded Patient Health Questionnaire-2 Score 0 10/11/2023 Comments No Sex and Gender Information Value Date Recorded Sex Assigned at Not on file Legal Sex Female 5:20 PM CDT Gender Identity Not on file Sexual Orientation Not on file Last Filed Vital Signs Vital Sign Reading Time Taken Comments Blood Pressure 103/75 10/11/2023 1:54 PM CDT Pulse 100 10/11/2023 1:54 PM CDT Temperature 36.8 C (98.2 F) 10/11/2023 1:54 PM CDT Respiratory Rate 16 10/11/2023 1:54 PM CDT Oxygen Saturation 96% 10/11/2023 1:54 PM CDT Inhaled Oxygen Concentration - - Weight 98.4 kg (217 lb) 10/11/2023 1:54 PM CDT Height 162.6 cm (5' 4 ) 10/11/2023 1:54 PM CDT Body Mass Index 37.25 10/11/2023 1:54 PM CDT Plan of Treatment Health Maintenance Due Date Last Done Comments Annual Physical 01/06/1995 Hepatitis C 01/06/2010 DTaP, Tdap and Td Vaccines (7 - Td or Tdap) 10/16/2016 10/16/2006, 06/10/1997, 07/05/1993, Additional history exists COVID-19 Vaccine ( season) 2023 Influenza Adult (#1) 2023 01/05/2012, 01/22/2004, 01/06/2003 PHQ-2 (Physician [place]) 03/13/2024 10/11/2023 Cervical Cancer Screening Pap Smear (Age 30 to 64) Every 3 Years 07/11/2025 07/11/2022, 07/11/2022, 07/05/2021 Cervical Cancer Screening Pap with HPV Testing (Age 30 to 64) Every 5 Years 07/12/2027 07/11/2022 Cervical Cancer Screening with HPV 07/12/2027 Hepatitis B Vaccines Completed 1992, 1992, 1992 Meningococcal Vaccine Aged Out 10/16/2006 No slick randy eligible based on patient's age to complete this topic HPV Vaccines Aged Out No longer eligi ble based on patient's age to complete this topic Meningococcal B Vaccine Aged Out No l onger eligible based on patient's age to complete this topic Pneumococcal Vaccine: Pediatrics (0 to 5 Years) and At-Risk Patients (6 to 64 Years) Aged Out No longer eligible based on patient's age to complete this topic RSV Immunizations Under 20 Months Aged Out No longer eligible based on patient's age to complete this topic Insurance [employer] Care Teams Debridging Machine Operator Relationship Specialty Start Date End Date Petey York MD [address] [place] [id number] PCP - General FAMILY PRACTICE 01/17/23
--- OUTSIDE RECORDS SUMMARY | 2024-05-18 07:54 | XMS_ITS ---
Author Organization [facility] Address [address] [place] [address] Care Team Providers Care Furniture Decals Inspector Name Role Phone Chela PRAJAPATI, Dr Angelo Primary Care Provider Nita Naqvi Unavailable [phone] REASON FOR VISIT SCIT - Traditional Schedule Allergy Immunotherapy Encounters Encounter Location Date Provider Diagnosis [address] [address] 05/06/2024 Nita Conrad Allergic rhinitis du e to pollen J30.1 ; Other allergic rhinitis J30.89 ; Allergic rhinitis due to animal (cat) (dog) hair and dander J30.81 and Other chronic allergic conjunctivitis H10.45 Assessments Encounter Date Diagnosis (ICD Code) Assessment Notes Treatment Notes Treatment Clinical Notes Section Notes 05/06/2024 Allergic rhinitis due to pollen (ICD-10 - J30.1) 05/06/2024 Other allergic rhinitis (ICD-10 - J30.89) 05/06/2024 Allergic rhinitis due to animal (cat) (dog) hair and dander (ICD-10 - J30.81) 05/06/2024 Other chronic allergic conjunctivitis (ICD-10 - H10.45) Plan Of Treatment Next Appt Details Follow Up: As scheduled, Kacie son: Provider Name:Nita felton, 05/20/2024 05:00:00 PM, [address] [place], [address], Provider Name:Nita felton, 05/30/2024 05:00:00 PM, [address] [place] [address], [phone], Progress Notes * Latrice BRAYDOB:1990 (34 yo F)Acc No.[id number]:05/06/2024 SCIT-Aeroallergen Patient: Latrice ROMERO Provider: James Conrad MD :1990 A ge:34 Y S ex:Female Date:05/06/2024 Address:[address] [place], [place] [id number] Pcp:Dr Petey York MD Subjective: * Chief [...] Information: * Visit Code: * Procedure Codes: 39526 IMMUNOTHERAPY INJECTIONS. * Electronic signature of An Conrad MD on 05/18/2024 at 07:54 AM ABSORPTION AND ADSORPTION ENGINEER Sign off status: Pending * Provider: James Conrad MD Date: 0 05/06/2024 Generated for Ortiz randall/Nina/Candiitting on: 0 05/18/2024 07:54 AM ABSORPTION AND ADSORPTION ENGINEER History and Physical Notes * HPI (History [...]
--- OUTSIDE RECORDS SUMMARY | 2024-05-18 07:54 | XMS_ITS | Encounter Summary ---
Author Organization [facility] Address [address] [place] [id number] Care Team Providers Care Budget Technician Name Role Phone Ryan Metz MD Primary Care Provider [phone] Bhavna Ventura PA-C Primary Care Provider [phone] Petey York MD Primary Care Provider [phone] Encounter Details Date Type Department Care Team (Latest Contact Info) Description 01/16/2018 Abstract [facility] Franco Roland MD Social History Tobacco Use Types Packs/Day Years Used Date Smoking Tobacco: Never Assessed Comments Unknown Sex and Gender Information Value Date Recorded Sex Assigned at Not on file Legal Sex Female 5:20 PM CDT Gender Identity Not on file Sexual Orientation Not on file documented as of this encounter Plan of Treatment Not on file documented as of this encounter Visit Diagnoses Not on filedocumented in this encounter Additional Health Concerns Infection Onset Date Last Indicated Resolved Time COVID-19 Rule Out 10/20/2021 10/20/2021 10/20/2021 7:37 PM CDT documented as of this encounter Care Teams Budget Technician Relationship Specialty Start Date End Date Ryan Metz MD [address] [place] [phone] PCP - General INTERNAL MEDICINE 10/27/18 12/23/21 Bhavna Ventura PA-C [address] [place] [id number] PCP - General PHYSICIAN FULL STACK ENGINEER 12/24/21 01/16/23 Petey York MD [address] [place] [id number] PCP - General FAMILY PRACTICE 01/17/23 documented as of this encounter
--- OUTSIDE RECORDS SUMMARY | 2024-05-18 07:55 | XMS_ITS | Encounter Summary ---
Author Organization [facility] Address [address] [facility] [place] [address] Care Team Providers Care Paint Tinter Name Role Phone Ryan Metz MD Primary Care Provider [phone] Encounter Details Date Type Department Care Team (Late st Contact Info) Description 12/14/2023 Lab Requisition [facility] - DermPath Lab [address] [facility] [place] [phone] Fina Cueto MD [address] [facility] [address] [place] [address] Social History Tobacco Use Types Packs/Day Years Used Date Smoking Tobacco: Never Smokeless Tobacco: Never Alcohol Use Standard Drinks/Week Comments Yes 0 (1 standard drink = 0.6 oz pur e alcohol) 2-3 drinks per month Sex and Gender Information Value Date Recorded Sex Assigned at Not on file Gender Identity Not on file Sexual Orientation Not on file documented as of this encounter Functional Status Functional Status Response Date of [...] person have difficulty concentrating/remembering/making decisions? No 12/14/2017 documented as of this encounter Plan of Treatment Not on file documented as of this encounter Procedures Procedure Name Priority Date/Time Associated Diagnosis Comments DERMATOPATHOLOGY Routine 12/14/2023 12:0 0 AM CDT documented in this encounter Results * DERMATOPATHOLOGY (12/14/2023 12:00 AM CDT) Case Report Dermatopathology Report Case: [id number] Authorizing Provider: Fina Cueto MD Collected: 12/14/2023 12:00 AM Ordering Location: [facility] - Received: 12/18/2023 08:49 AM DermPath Lab Pathologist: Desi Doan MD Specimen: Skin, under right breast 3:57 PM CDT DERMATOPATHOLOGY LABORATORY Final Diagnosis Specimen A. SKIN, under right breast: VASCULAR PROLIFERATION, SUPERFICIAL PORTIONS OF (D48.5) (see microscopic description and comment) 4 3:57 PM CDT DERMATOPATHOLOGY LABORATORY Clinical History Cyst vs dermatofibroma, r/o other 4 3:57 PM CDT DERMATOPATHOLOGY LABORATORY Gross Description Specimen A: Received is one formalin filled container labeled with the patient's name and designated under right breast. The specimen consists of a 3x3x4 mm piece of skin. The specimen is serially sectioned and a loan representative section is submitted in cassette 1. Jar 1. 3:57 PM CDT DERMATOPATHOLOGY LABORATORY Microscopic Description Specimen A. SKIN, under right breast: Sections show the superficial portions of a vascular proliferation within the superficial and deep dermis composed of numerous ectatic vascular channels. Focal dermal fibrosis is also present. The hematoxylin and eosin stain is reviewed; immunohistochemical stains are performed to further assess the histologic features. CD31/Ki67 immunostain does not reveal a significantly increased proliferation index in lesional cells. D2-40 is positive in scattered lymphatic vessels. SMA reveals pericytes. HHV8 is negative. Factor XIIIa is positive in scattered dermal dendrocytes. MYC does not reveal significant staining in lesional cells. This lesion is present at the margin of the specimen. Additional deeper sections were obtained and reviewed. COMMENT: The patient's reported history of breast cancer is noted. The overall histologic features are somewhat favored to represent an atypical vascular lesion. Clinicopathologic correlation is recommended. This case was also reviewed by Dr. Dai Fenton, who agrees. 3:57 PM CDT DERMATOPATHOLOGY LABORATORY Disclaimer An external and internal positive and negative controls are appropriate for the histochemical, immunohistochemical and immunofluorescence stain(s) in this case (if any), except where stated explicitly. The performance characteristics of the stain(s) cited in this report were developed and its performance characteristic determined by the Dermatopathology Laboratory at [facility], directed by Dr. Tigre Fenton. These tests need not be, and therefore are not, approved by the [place] Food and Drug Administration. The tests are used for clinical purposes. Billing Codes Specimen Charges Stain Charges 26668 1 29350 40601 84670 64082 55046 49264 1 1 1 1 1 1 4 3:57 PM CDT DERMATOPATHOLOGY LABORATORY Embedded Images 4 3:57 PM CDT DERMATOPATHOLOGY LABORATORY Pathology/Cytolog y TISSUE SPECIMEN FROM SKIN / Unknown 12/14/2023 12/18/2023 8:49 AM CDT Fina Cueto MD LAB - PATHOLOGY/CYTO LOGY ORDERABLES DERMATOPATHOLOGY LABORATORY [facility] - Department of Dermatology [address] [phone] documented in this encounter Visit Diagnoses Not on filedocumented in this encounter Care Teams Paint Tinter Relationship Specialty Start Date End Date Ryan Metz MD [address] [place] [address] [place] [id number] PCP - General 05/15/17 documented as of this encounter
--- OUTSIDE RECORDS SUMMARY | 2024-05-18 07:55 | XMS_ITS | Patient Health Summary ---
Author Organization [facility] Address [address] [place] [address] Care Team Providers Care Calliope Player Name Role Phone Ryan Metz MD Primary Care Provider [phone] [facility],non-owned Affiliates and Associated Physician Practices is amultiple site organization consisting of ambulatory clinics and hospital sitesin [place], [place], [place] and [place]. This disclosure is being madepursuant to the Care Everywhere program and may not contain all information available regarding this patient. Last updated 17.[facility] Allergies * Doxycycline(Nausea and/or Vomiting) Medications * Be aware that medications may not be up to date on this document. Alwaysverify current medications with the patient. * norethindrone-ethinyl estradiol (BALZIVA) 0.4-35 MG-MCG tablet Take 1 tablet by mouth once daily Reasons: Control Treatment Active Problems Problem Noted Date Diagnosed Date [...] Mass Index 33.4 12/13/2017 4:53 PM CDT Procedures * DERMATOPATHOLOGY(Performed 12/14/2023) * US KIDNEY WITH DOPPLER(Performed 12/14/2017) Performed for Acute kidney injury (HCC) * CBC W/O DIFFERENTIAL(Performed 12/14/2017) * BASIC METABOLIC PANEL (CALCIUM TOTAL)(Performed 12/14/2017) * HCG URINE QUALITATIVE(Performed 12/13/2017) * OSMOLALITY URINE(Performed 12/13/2017) * POTASSIUM URINE RANDOM(Performed 12/13/2017) * UREA NITROGEN URINE RANDOM(Performed 12/13/2017) * CREATININE URINE RANDOM(Performed 12/13/2017) * SODIUM URINE RANDOM(Performed 12/13/2017) * CK BLOOD(Performed 12/13/2017) * LACTIC ACID BLOOD(Performed 12/13/2017) * MAGNESIUM BLOOD(Performed 12/13/2017) * PHOSPHORUS BLOOD(Performed 12/13/2017) * CBC W AUTO DIFFERENTIAL(Performed 12/13/2017) * COMPREHENSIVE METABOLIC PANEL(Performed 12/13/2017) * CULTURE BLOOD(Performed 12/13/2017) * URINALYSIS W/MICROSCOPIC NO CULTURE(Performed 12/13/2017) * CULTURE URINE(Performed 12/13/2017) Results * DERMATOPATHOLOGY (12/14/2023 12:00 AM CDT) Case Report Dermatopathology Report Case: [id number] Authorizing Provider: Fina Cueto MD Collected: 12/14/2023 12:00 AM Ordering Location: [facility] - Received: 12/18/2023 08:49 AM DermPath Lab Pathologist: Desi Doan MD Specimen: Skin, under right breast 3:57 PM CDT DERMATOPATHOLOGY LABORATORY Final Diagnosis Specimen A. SKIN, under right breast: VASCULAR PROLIFERATION, SUPERFICIAL PORTIONS OF (D48.5) (see microscopic description and comment) 3:57 PM [facility] Clinical History Cyst vs dermatofibroma, r/o other 3:57 PM [facility] Gross Description Specimen A: Received is one formalin filled container labeled with the patient's name and designated under right breast. The specimen consists of a 3x3x4 mm piece of skin. The specimen is serially sectioned and a business center representative section is submitted in cassette 1. Jar 1. 3:57 PM [facility] Microscopic Description Specimen A. SKIN, [...] Dr. Dai Fenton, who agrees. 3:57 PM [facility] Disclaimer An external and internal positive and negative controls are appropriate for the histochemical, immunohistochemical and immunofluorescence stain(s) in this case (if any), except where stated explicitly. The performance characteristics of the stain(s) cited in this report were developed and its performance characteristic determined by the Dermatopathology Laboratory at [facility], directed by Dr. Tigre Fenton. These tests need not be, and therefore are not, approved by the [place] Food and Drug Administration. The tests are used for clinical purposes. Billing Codes Specimen Charges Stain Charges 80197 1 69058 82594 61269 11314 43818 63790 1 1 1 1 1 1 4 3:57 PM CDT DERMATOPATHOLOGY LABORATORY Embedded Images 4 3:57 PM CDT DERMATOPATHOLOGY LABORATORY Pathology/Cytolog y TISSUE SPECIMEN FROM SKIN / Unknown 12/14/2023 12/18/2023 8:49 AM CDT Fina Cueto MD LAB - PATHOLOGY/CYTO LOGY ORDERABLES DERMATOPATHOLOGY LABORATORY [facility] - Department of Dermatology [address], [address] [phone] * US KIDNEY WITH DOPPLER (12/14/2017 9:02 AM CDT) Anatomical Region Laterality Modality Ultrasound 12/14/2017 9:17 AM CDT Impressions 12/14/2017 12:48 PM CDT IMPRESSION: 1. No ultrasonographic evidence of pyelonephritis. 2. Patent renal vasculature. Dictated by Subha Marquez MD (residential program coordinator). This report was approved by Subha Marquez on 12/14/2017 10:01 AM . I, Dr. KAROL ALLRED M.D. have personally reviewed and interpreted this examination/study. This report was electronically signed by KAROL ALLRED M.D. on 12/14/2017 12:48 PM . Narrative 12/14/2017 12:48 PM CDT EXAMINATION: 1. Complete retroperitoneal sonogram 2. Color and spectral Doppler evaluation of the renal vasculature HISTORY: Concern for bilateral pyleonepritis FINDINGS: Comparison made to bilateral renal ultrasound dated 12/13/2017. Retroperitoneum: Right kidney: 12.1 x 4.2 x 5.2 cm Left kidney: 11.2 x 4.9 x 4.3 cm Renal parenchymal echogenicity is normal. There is no evidence of a solid renal mass, renal calculi, or hydronephrosis. The urinary bladder is distended and appears normal. Renal Doppler: The upper pole arcuate arteries of both kidneys are difficult to evaluate. Arcuate arterial waveforms in both kidneys otherwise demonstrate brisk systolic upstrokes. While the renal arteries were not interrogated in their entirety, the visible portions display normal arterial waveforms and velocities. Resistive indices: Right superior kidney: 0.63 Right mid kidney: 0.64 Right inferior kidney: 0.66 Right renal artery: 0.67 Left superior kidney: 0.60 Left mid kidney: 0.65 Left inferior kidney: 0.63 Left renal artery: 0.60 Procedure Note Karol Allred MD - 12/14/2017 EXAMINATION: 1. Complete retroperitoneal sonogram 2. Color and spectral Doppler evaluation of the renal vasculature HISTORY: Concern for bilateral pyleonepritis FINDINGS: Comparison made to bilateral renal ultrasound dated 12/13/2017. Retroperitoneum: Right kidney: 12.1 x 4.2 x 5.2 cm Left kidney: 11.2 x 4.9 x 4.3 cm Renal parenchymal echogenicity is normal. There is no evidence of asolid renal mass, renal calculi, or hydronephrosis. The urinary bladder is distended and appears normal. Renal Doppler: The upper pole arcuate arteries of both kidneys are difficult toevaluate. Arcuate arterial waveforms in both kidneys otherwise demonstrate brisk systolic upstrokes. While the renal arteries were not interrogated in their entirety, the visible portions display normal arterial waveformsand velocities. Resistive indices: Right superior kidney: 0.63 Right mid kidney: 0.64 Right inferior kidney: 0.66 Right renal artery: 0.67 Left superior kidney: 0.60 Left mid kidney: 0.65 Left inferior kidney: 0.63 Left renal artery: 0.60 IMPRESSION: 1. No ultrasonographic evidence of pyelonephritis. 2. Patent renal vasculature. Dictated by Subha Marquez MD (residential program coordinator). This report was approved by Subha Marquez on 12/14/2017 10:01 AM . I, Dr. KAROL ALLERD M.D. have personally reviewed and interpretedthis examination/study. This report was electronically signed by KAROL ALLRED M.D. on 12/14/2017 12:48 PM . Roderick Cintron MD US ORDERABLES * (ABNORMAL) CBC W/O DIFFERENTIAL (12/14/2017 3:27 AM CDT) WBC 7.5 3.5 - 10.5 10 3/uL 12/14/2017 3:49 AM CDT [facility] RBC 3.69(L) 3.90 - 5.00 10 6/uL 12/14/2017 3:49 AM [facility] Hemoglobin 10.9(L) 12.0 - 15.5 g/dL 12/14/2017 3:49 AM [facility] Hematocrit 32.0(L) 35.0 - 45.0 % 12/14/2017 3:49 AM [facility] MCV 86.7 81.0 - 97.0 fL 12/14/2017 3:49 AM [facility] MCH 29.5 28.0 - 34.0 pg 12/14/2017 3:49 AM [facility] MCHC 34.1 32.0 - 36.0 g/dL 12/14/2017 3:49 AM [facility] Platelet Count 226 150 - 400 10 3/uL 12/14/2017 3:49 AM [facility] RDW-SD 39.7 36.0 - 50.0 fL 12/14/2017 3:49 AM [facility] RDW-CV 12.4 11.2 - 14.8 % 12/14/2017 3:49 AM [facility] MPV 9.6 9.3 - 12.8 fL 12/14/2017 3:49 AM [facility] Blood BLOOD SPECIMEN / Unknown Lab Venipuncture / Unknown 12/14/2017 3:27 AM CDT 12/14/2017 3:45 AM T Roderick Cintron MD LAB - HEMATOLOGY ORD ERABLES [facility] [address] [phone] * (ABNORMAL) BASIC METABOLIC PANEL (CALCIUM TOTAL) (12/14/2017 3:27 AM CDT) BUN 14 7 - 26 mg/dL 12/14/2017 4:09 AM [facility] Creatinine 1.3(H) 0.6 - 1.2 mg/dL 12/14/2017 4:09 AM [facility] Sodium 140 136 - 145 mmol/L 12/14/2017 4:09 AM [facility] Potassium 3.8 3.5 - 4.5 mmol/L 12/14/2017 4:09 AM [facility] Chloride 110(H) 98 - 107 mmol/L 12/14/2017 4:09 AM [facility] CO2 22 22 - 29 mmol/L 12/14/2017 4:09 AM [facility] Glucose 101 70 - 115 mg/dL 12/14/2017 4:09 AM [facility] Calcium 8.7 8.4 - 10.2 mg/dL 12/14/2017 4:09 AM [facility] Anion Gap 12 8 - 18 12/14/2017 4:09 AM [facility] BUN/Creatinine Ratio 11 7 - 23 12/14/2017 4:09 AM [facility] Osmolality Calculated 291 270 - 300 mOsm/kg 12/14/2017 4:09 AM [facility] eGFR 50(L) >60 mL/min/1.7 3 m2 12/14/2017 4:09 AM [facility] Blood BLOOD SPECIMEN / Unknown Lab Venipuncture / Unknown 12/14/2017 3:27 AM CDT 12/14/2017 3:44 AM CDT Roderick Cintron MD LAB - CHEMISTRY [place] [facility] [address] [phone] * HCG URINE QUALITATIVE (12/13/2017 8:38 PM CDT) Test Urine Negative Negative 12/13/2017 8:44 PM T [facility] Urine URINE / Unknown Collection / Unknown 12/13/2017 8:38 PM CDT 12/13/2017 8:38 PM CDT Yady Esquivel DO LAB - URINALY SIS ORDERABLES Performing Organization Address City/[facility]/ZIP Co de Phone Number [address] [phone] * SODIUM URINE RANDOM (12/13/2017 8:37 PM CDT) Sodium Urine 120 Not Established mmol/L 12/13/2017 9:09 PM CDT [facility] Urine URINE SPECIMEN OBTAINED BY CLEAN CATCH PROCEDURE / Unknown Collection / Unknown 12/13/2017 8:37 PM CDT 12/13/2017 8:37 PM CDT Roderick Cintron MD LAB - URINE CHEMISTR Y ORDERABLES [address] [phone] * UREA NITROGEN URINE RANDOM (12/13/2017 8:37 PM CDT) Urea Nitrogen Random Urine 202 Not Established mg/dL 12/13/2017 9:09 PM CDT [facility] Urine URINE SPECIMEN OBTAINED BY CLEAN CATCH PROCEDURE / Unknown Collection / Unknown 12/13/2017 8:37 PM CDT 12/13/2017 8:37 PM CDT Roderick Cintron MD LAB - URINE CHEMISTR Y ORDERABLES Performing Organization Address City/[facility]/ZIP Co de Phone Number [address] [phone] * POTASSIUM URINE RANDOM (12/13/2017 8:37 PM CDT) Potassium Urine 10 Not Established mmol/L 12/13/2017 9:09 PM CDT [facility] Urine URINE SPECIMEN OBTAINED BY CLEAN CATCH PROCEDURE / Unknown Collection / Unknown 12/13/2017 8:37 PM CDT 12/13/2017 8:37 PM CDT Roderick Cintron MD LAB - URINE CHEMISTR Y ORDERABLES Performing Organization Address [facility]/ZIP Co de Phone Number [address] [phone] * OSMOLALITY URINE (12/13/2017 8:37 PM CDT) Osmolality Urine 342 50 - 1,200 mOsm/kg 12/13/2017 9:01 PM CDT [facility] Urine URINE SPECIMEN OBTAINED BY CLEAN CATCH PROCEDURE / Unknown Collection / Unknown 12/13/2017 8:37 PM CDT 12/13/2017 8:37 PM CDT Roderick Cintron MD LAB - URINE CHEMISTR Y ORDERABLES Performing Organization Address City/[facility]/ZIP Co de Phone Number [address] [phone] * CREATININE URINE RANDOM (12/13/2017 8:37 PM CDT) Creatinine Urine 40 Not Established mg/dL 12/13/2017 9:21 PM T [facility] Urine URINE SPECIMEN OBTAINED BY CLEAN CATCH PROCEDURE / Unknown Collection / Unknown 12/13/2017 8:37 PM CDT 12/13/2017 8:37 PM CDT Roderick Cintron MD LAB - URINE CHEMISTR Y ORDERABLES Performing Organization Address City/[facility]/ZIP Co de Phone Number [address] [phone] * (ABNORMAL) CBC W AUTO DIFFERENTIAL (12/13/2017 7:17 PM CDT) WBC 6.9 3.5 - 10.5 10 3/uL 12/13/2017 7:50 PM [facility] RBC 3.77(L) 3.90 - 5.00 10 6/uL 12/13/2017 7:50 PM [facility] Hemoglobin 11.1(L) 12.0 - 15.5 g/dL 12/13/2017 7:50 PM [facility] Hematocrit 33.4(L) 35.0 - 45.0 % 12/13/2017 7:50 PM [facility] MCV 88.6 81.0 - 97.0 fL 12/13/2017 7:50 PM [facility] MCH 29.4 28.0 - 34.0 pg 12/13/2017 7:50 PM [facility] MCHC 33.2 32.0 - 36.0 g/dL 12/13/2017 7:50 PM [facility] Platelet Count 223 150 - 400 10 3/uL 12/13/2017 7:50 PM [facility] RDW-SD 40.8 36.0 - 50.0 fL 12/13/2017 7:50 PM [facility] RDW-CV 12.7 11.2 - 14.8 % 12/13/2017 7:50 PM [facility] MPV 9.8 9.3 - 12.8 fL 12/13/2017 7:50 PM [facility] Neutrophils % 61.6 35.0 - 70.0 % 12/13/2017 7:50 PM [facility] Lymphocytes % 29.8 19.7 - 55.1 % 12/13/2017 7:50 PM [facility] Monocytes % 6.4 3.0 - 15.0 % 12/13/2017 7:50 PM [facility] Eosinophils % 1.9 0.0 - 6.0 % 12/13/2017 7:50 PM [facility] Basophil % 0.3 0.0 - 1.5 % 12/13/2017 7:50 PM [facility] Neutrophils Absolute 4.3 1.6 - 7.0 10 3/uL 12/13/2017 7:50 PM [facility] Lymphocyte Absolute 2.1 0.8 - 2.9 10 3/uL 12/13/2017 7:50 PM [facility] Monocytes Absolute 0.44 0.14 - 0.66 10 3/uL 12/13/2017 7:50 PM [facility] Eosinophils Absolute 0.13 0.00 - 0.22 10 3/uL 12/13/2017 7:50 PM [facility] Basophils Absolute 0.02 0.00 - 0.06 10 3/uL 12/13/2017 7:50 PM [facility] Immature Granulocytes % 0.1 0.0 - 1.0 % 12/13/2017 7:50 PM [facility] Blood BLOOD SPECIMEN / Unknown Lab Venipuncture / Unknown 12/13/2017 7:17 PM CDT 12/13/2017 7:45 PM CDT Roderick Cintron MD LAB - HEMATOLOGY ORD ERABLES [facility] [address] [phone] * (ABNORMAL) COMPREHENSIVE METABOLIC PANEL (12/13/2017 7:17 PM CDT) BUN 15 7 - 26 mg/dL 12/13/2017 8:07 PM [facility] Creatinine 1.6(H) 0.6 - 1.2 mg/dL 12/13/2017 8:07 PM [facility] Sodium 141 136 - 145 mmol/L 12/13/2017 8:07 PM [facility] Potassium 3.4(L) 3.5 - 4.5 mmol/L 12/13/2017 8:07 PM [facility] Chloride 110(H) 98 - 107 mmol/L 12/13/2017 8:07 PM [facility] CO2 20(L) 22 - 29 mmol/L 12/13/2017 8:07 PM [facility] Glucose 105 70 - 115 mg/dL 12/13/2017 8:07 PM [facility] Calcium 9.1 8.4 - 10.2 mg/dL 12/13/2017 8:07 PM [facility] Protein Total 6.4 6.0 - 8.3 g/dL 12/13/2017 8:07 PM [facility] Albumin 2.8(L) 3.4 - 5.0 g/dL 12/13/2017 8:07 PM [facility] Bilirubin Total 0.3 0.2 - 1.2 mg/dL 12/13/2017 8:07 PM [facility] Alkaline Phosphatase 47 40 - 150 Units/L 12/13/2017 8:07 PM [facility] ALT 7 0 - 55 Units/L 12/13/2017 8:07 PM [facility] AST 11 5 - 34 Units/L 12/13/2017 8:07 PM [facility] Anion Gap 14 8 - 18 12/13/2017 8:07 PM [facility] BUN/Creatinine Ratio 9 7 - 23 12/13/2017 8:07 PM CDT [facility] Osmolality Calculated 293 270 - 300 mOsm/kg 12/13/2017 8:07 PM CDT [facility] Albumin/Globulin Ratio 0.8(L) 1.1 - 2.3 12/13/2017 8:07 PM CDT [facility] eGFR 39(L) >60 mL/min/1.7 3 m2 12/13/2017 8:07 PM CDT [facility] Blood BLOOD SPECIMEN / Unknown Lab Venipuncture / Unknown 12/13/2017 7:17 PM CDT 12/13/2017 7:45 PM CDT Roderick Cintron MD LAB - CHEMISTRY [place] [facility] [address] [phone] * PHOSPHORUS BLOOD (12/13/2017 7:17 PM CDT) Phosphorus 3.5 2.3 - 4.7 mg/dL 12/13/2017 8:05 PM CDT [facility] Blood BLOOD SPECIMEN / Unknown Lab Venipuncture / Unknown 12/13/2017 7:17 PM CDT 12/13/2017 7:45 PM CDT Roderick Cintron MD LAB - CHEMISTRY [place] [facility]PT[facility] Performing Organization Address City/[facility]/ZIP Co de Phone Number [address] [phone] * MAGNESIUM BLOOD (12/13/2017 7:17 PM CDT) Magnesium 1.8 1.6 - 2.6 mg/dL 12/13/2017 8:07 PM CDT [facility] Blood BLOOD SPECIMEN / Unknown Lab Venipuncture / Unknown 12/13/2017 7:17 PM CDT 12/13/2017 7:45 PM CDT Roderick Cintron MD LAB - CHEMISTRY [place] [address], [facility] [phone] * LACTIC ACID BLOOD (12/13/2017 7:17 PM CDT) [facility] Lactic Acid-Stat 1.5 0.5 - 2.2 mmol/L 12/13/2017 8:03 PM CDT [facility] Blood BLOOD SPECIMEN / Unknown Lab Venipuncture / Unknown 12/13/2017 7:17 PM CDT 12/13/2017 7:45 PM CDT Roderick Cintron MD LAB - CHEMISTRY [place] [address], [facility] [phone] * CK BLOOD (12/13/2017 7:17 PM CDT) [facility] CK Total 52 30 - 200 Units/L 12/13/2017 8:07 PM CDT [facility] Blood BLOOD SPECIMEN / Unknown Lab Venipuncture / Unknown 12/13/2017 7:17 PM CDT 12/13/2017 7:45 PM CDT Roderick Cintron MD LAB - CHEMISTRY [place] [address], [facility] [phone] * CULTURE BLOOD (12/13/2017 7:16 PM CDT) [facility] Culture No growth day 5 [place] 12/18/2017 11:31 PM CDT [facility] MICROBIOLOGY Blood PERIPHERAL BLOOD / Unknown Lab Venipuncture / Unknown 12/13/2017 7:16 PM CDT 12/13/2017 7:45 PM CDT Roderick Cintron MD LAB - MICROBIOLOGY O RDERABLES [facility] MICROBIOLOGY [address] [place] [address], [facility] [phone] * (ABNORMAL) URINALYSIS W/MICROSCOPIC NO CULTURE (12/13/2017 6:24 PM [facility]) Color UA Yellow Straw, Yellow, Colorless, Light Yellow 12/13/2017 6:33 PM [facility] Clarity UA Clear Clear 12/13/2017 6:33 PM [facility] Specific [place] UA 1.006 1.001 - 1.030 12/13/2017 6:33 PM [facility] pH UA 5.5 5.0 - 8.0 12/13/2017 6:33 PM [facility] Protein UA Negative <=20 mg/dL 12/13/2017 6:33 PM [facility] Glucose UA Negative Negative mg/dL 12/13/2017 6:33 PM [facility] Ketone UA Negative Negative mg/dL 12/13/2017 6:33 PM [facility] Bilirubin UA Negative Negative mg/dL 12/13/2017 6:33 PM [facility] Blood UA Moderate(A) Negative 12/13/2017 6:33 PM [facility] Nitrite UA Negative Negative 12/13/2017 6:33 PM [facility] Leukocyte Esterase Negative Negative 12/13/2017 6:33 PM [facility] Urobilinogen UA <2.0 <2.0 mg/dL 8 6:33 PM [facility] RBC UA 2 0 - 8 /HPF 12/13/2017 6:33 PM [facility] WBC UA 1 0 - 2 /HPF 12/13/2017 6:33 PM [facility] Bacteria UA Rare Rare, Occasional, None /HPF 12/13/2017 6:33 PM [facility] Squamous Epithelial Cells UA <1 0 - 1 /HPF 12/13/2017 6:33 PM [facility] Mucus UA Rare(A) None /LPF 12/13/2017 6:33 PM [facility] Urine URINE SPECIMEN OBTAINED BY CLEAN CATCH PROCEDURE / Unknown Collection / Unknown 12/13/2017 6:24 PM CDT 12/13/2017 6:28 PM T Roderick Cintron MD LAB - URINALYSIS ORD ERABLES [facility] [address] [place] [address], [facility] [phone] * CULTURE URINE (12/13/2017 6:24 PM CDT) Culture Urine No growth (<100 CFU/mL) [place] 12/15/2017 6:23 AM CDT [facility] MICROBIOLOGY Urine URINE SPECIMEN OBTAINED BY CLEAN CATCH PROCEDURE / Unknown Collection / Unknown 12/13/2017 6:24 PM CDT 12/13/2017 6:28 PM CDT Roderick Cintron MD LAB - MICROBIOLOGY O RDERABLES Performing Organization Address City/[facility]/ZIP Co de Phone Number [facility] MICROBIOLOGY [address] [place], [place] [address], [facility] [phone] Care Teams Calliope Player Relationship Specialty Start Date End Date Ryan Metz MD [address] [place] [id number] PCP - General 05/15/17
--- OUTSIDE RECORDS SUMMARY | 2024-05-18 07:55 | XMS_ITS | Encounter Summary ---
Author Organization [facility] Health Address [address] [facility] [place] [address] Care Team Providers Care Second Chef Name Role Phone Ryan Metz MD Primary Care Provider [phone] Encounter Details Date Type Department Care Team (Late st Contact Info) Description 12/28/2023 Lab Requisition [facility] - Pathology Lab [address] [place] [phone] Enrrique Gandara MD [address] [facility] [address] [place] [id number] Illness, unspecified Social History Tobacco Use Types Packs/Day Years [...] as of this encounter Plan of Treatment Pending Results Name Type Priority Associated Diagnoses Date /Time SLIDE PREP HISTOLOGY Pathology Cytology Routine Illness, unspecified 12/28/2023 12:43 PM CDT documented as of this encounter Visit Diagnoses Diagnosis Illness, unspecified documented in this encounter Care Teams Second Chef Relationship Specialty Start Date End Date Ryan Metz MD [address] [place] [id number] PCP - General 05/15/17 documented as of this encounter
--- NOTE | 2024-05-18 08:06 | ECG_ITS ---
Test Date: 2024-05-18 08:21:25 Measurements Intervals [place] Rate: 72 P: 39 MS: 171 QRS: 71 QRSD: 85 T: 41 QT: 386 QTc: 424 Interpretive Statements SINUS RHYTHM NORMAL ELECTROCARDIOGRAM No previous ECG available for comparison Electronically Signed On 05-18-2024 15:56:05 [employer]UM CLE[employer] by Tu Bravo M.D.
[2024-05-18 08:44] LABS: Alanine Aminotransferase 27 U/L (6-35); Albumin Level 4.5 g/dL (3.5-5.1); Alkaline Phosphatase 89 U/L (38-126); Amylase 68 U/L (30-110); Aspartate Amino Transferase 23 U/L (14-36); Bilirubin,Total 0.5 mg/dL (0.2-1.3); Lipase 46 U/L (23-300)
== END 2024-05-18 07:50 | disposition home or self-care (01) ==
LOC: ANHLAB 07:50
PROVIDERS: PCP Physician Assistant Medical; Visit Provider Surgery
DX: K80.50 Calculus of bile duct without cholangitis or cholecystitis without obstruction (principal); E78.5 Hyperlipidemia, unspecified; Z01.818 Encounter for other preprocedural examination
CPT/HCPCS: 36415; 80076; 82150; 83690; 93005

== ENCOUNTER 2024-05-24 00:41 | Day surgery (SDC) | payer OTHER, SELFPAY ==
[2024-05-14 13:36] VITALS: BMI 35.9
--- NOTE | 2024-05-14 13:49 | PC.NURSE ---
Report to the Outpatient Waiting Room, entrance under the green pavilion located off [facility], at time 6:00 on date 05/24/2024. Planned Procedure Time: 7:30a.m.? Time changes happen often and if your time is changed the preop area will call you the afternoon before. - You and your visitor will be asked to self-screen and do not enter if you have any COVID symptoms. Please call surgeon if you need to reschedule. - A mask is optional within the hospital at this time. Patients may have clear liquids (water, carbonated beverages, clear teas, apple juice) until 3 hours prior to surgery with a maximum of 20 ounces. - No food from midnight until time of surgery and no smoking, or chewing tobacco (or any form of nicotine). No chewing gum, candy or mints. - Infants may have breast milk until 4 hours before surgery, infant formula 6 hours prior to surgery. - Children will be allowed to drink immediately following surgery.? If applicable, please bring a bottle or sippy cup to assist with drinking. Juice, water, soda, and popsicles are readily available.? For infants on formula, please bring formula the day of surgery.? Pacifiers are allowed. Take only the following medications with a SIP of water on the morning of surgery: alprazolam, levothyroxine DO NOT STOP ANY OF YOUR OTHER PRESCRIPTION MEDICATIONS PRIOR TO SURGERY EXCEPT THE FOLLOWING Hold all vitamins and supplements for 3 days per anesthesiologist. Medications to discontinue per physician NONE Date to take last dose N/A Please no make-up, nail portuguese, hairspray, perfume, deodorant, or body powder the day of surgery.? No jewelry (including any body piercings) or valuables the day of surgery, leave them at home.? Please take a shower or bath the night before, or the morning of, surgery with an antibacterial soap.? Wear comfortable, loose fitting clothing.? Children are encouraged to wear pajamas. - Jewelry must be removed prior to entering the operating room.? Rings and piercings that are not removed may be cut off. - The hospital will not accept responsibility for valuables.? - Please leave all valuables, including medications, at home the day of surgery. If you are going home after surgery, a licensed oil truck driver must drive you home.? - NO public transportation without another adult if you receive anesthesia. - We recommend that an adult stay with you for 24 hours following discharge. - We also recommend that you do not drive, make important decision, drink alcoholic beverages, or take any drugs that were not prescribed by your health care provider for at least 24 hours after your discharge time. For Pediatric surgeries, we recommend two adults accompany the child home. Follow any additional instructions given to you from your surgeon. Telephone instructions given to Latrice Tate and asked if any additional questions and then verbalized understanding. Patient advised to call surgeon office or pre surgery nurse liaison [phone] if any additional questions.
[2024-05-24] VITALS (16 sets, daily range): BP systolic 90–126; BP diastolic 64–81; PULSE 56–99; RESP 12–18; TEMP 36.1–36.6; O2SAT 97–100
--- OUTSIDE RECORDS SUMMARY | 2024-05-24 00:44 | XMS_ITS | Encounter Summary ---
Author Organization [facility] Address [address] [place] [address] Care Team Providers Care Oriental Rug Repairer Name Role Phone Bhavna Ventura PA-C Primary Care Provider [phone] Petey York MD Primary Care Provider [phone] Encounter Details Date Type Department Care Team ([facility] st Contact Info) Description 12/28/2022 [employer] Message Enc [facility] [address] [place] [address] [place] [address] [place] [address] pain Social History Tobacco Use [...] on filedocumented in this encounter Care Teams Oriental Rug Repairer Relationship Specialty Start Date End Date Bhavna Ventura PA-C [facility] [place] [address] PCP - General PHYSICIAN PLATFORM MATERIAL HANDLING SUPERVISOR 12/24/21 01/16/23 Petey York MD [facility] [place] [address] PCP - General FAMILY PRACTICE 01/17/23 documented as of this encounter
--- OUTSIDE RECORDS SUMMARY | 2024-05-24 00:45 | XMS_ITS | Clinical Summary ---
Author Organization [facility] Address [facility] [place] [address] Care Team Providers Care Nut Sheller Name Role Phone Petey York MD Primary Care Provider [phone] Allergies Active Allergy Reactions Criticality Noted Date [...] tablet TAKE 1 TABLET(75 MCG) BY MOUTH SECOND BALLER BEFORE BREAKFAST 3 Active montelukast (SINGULAIR) 10 [...] 08/16/2022 Assessment & Plan (04/25/2023 10:27 AM ELECTRONIC PAGINATION SYSTEM OPERATOR): Recommendation at this time is to continue with her home exercise program for the ankle. Patient will be seen back as needed. Assessment & Plan (01/31/2023 6:49 PM ELECTRONIC PAGINATION SYSTEM OPERATOR): We got her set up to go [...] (#1) 2023 01/05/2012, 01/22/2004, 01/06/2003 PHQ-2 (Physician [place]) 03/13/2024 10/11/2023 Cervical Cancer Screening Pap Smear [...] complete this topic Insurance [employer] Care Teams Nut Sheller Relationship Specialty Start Date End Date Petey York MD [address] [place] [id number] PCP - General FAMILY PRACTICE 01/17/23
--- OUTSIDE RECORDS SUMMARY | 2024-05-24 00:45 | XMS_ITS | Encounter Summary ---
Author Organization [facility] Address [address] [place] [address] Care Team Providers Care Set Up Person Name Role Phone Ryan Metz MD Primary Care Provider [phone] Bhavna Ventura PA-C Primary Care Provider [phone] Petey York MD Primary Care Provider [phone] Encounter Details Date Type Department Care Team (Latest Contact Info) Description 01/16/2018 Abstract [facility] Franco Roland MD [...] documented as of this encounter Care Teams Set Up Person Relationship Specialty Start Date End Date Ryan Metz MD [address] [place] [address] [phone] PCP - General INTERNAL MEDICINE 10/27/18 12/23/21 Bhavna Ventura PA-C [address] [place] [address] PCP - General PHYSICIAN LAW RESEARCHER 12/24/21 01/16/23 Petey York MD [address] [place] [address] PCP - General FAMILY PRACTICE 01/17/23 documented as of this encounter
--- OUTSIDE RECORDS SUMMARY | 2024-05-24 00:45 | XMS_ITS ---
Author Organization [facility] Address [address] [place] [address] Care Team Providers Care Lemon Grower Name Role Phone Chela PRAJAPATI, Dr Angelo Primary Care Provider Nita Naqvi Unavailable [phone] REASON FOR VISIT SCIT - Traditional Schedule Allergy Immunotherapy Encounters Encounter Location Date Provider Diagnosis [address] [address] 05/20/2024 Nita Conrad Allergic rhinitis du e to pollen J30.1 ; Other allergic rhinitis J30.89 ; Allergic rhinitis due to animal (cat) (dog) hair and dander J30.81 and Other chronic allergic conjunctivitis H10.45 Assessments Encounter Date Diagnosis (ICD Code) Assessment Notes Treatment Notes Treatment Clinical Notes Section Notes 05/20/2024 Allergic rhinitis due to pollen (ICD-10 - J30.1) 05/20/2024 Other allergic rhinitis (ICD-10 - J30.89) 05/20/2024 Allergic rhinitis due to animal (cat) (dog) hair and dander (ICD-10 - J30.81) 05/20/2024 Other chronic allergic conjunctivitis (ICD-10 - H10.45) Plan Of Treatment Next Appt Details Follow Up: As scheduled, Kacie son: Provider Name:Nita felton, 05/30/2024 05:00:00 PM, [address] [place], [address], Provider Name:Nita felton, 06/12/2024 05:00:00 PM, [address] [place], [address], Provider Name:Nita felton, 06/25/2024 05:00:00 PM, [place], [address], Progress Notes * Latrice TATEDOB:1990 (34 yo F)Acc No.[id number]:05/20/2024 SCIT-Aeroallergen Patient: Latrice ROMERO Provider: James Conrad MD :1990 A ge:34 Y S ex:Female Date:05/20/2024 Address:[address] [place], [place] [id number] Pcp:Dr Petey York MD Subjective: * Chief [...] Information: * Visit Code: * Procedure Codes: 68688 IMMUNOTHERAPY INJECTIONS. * Electronic signature of An Conrad MD on 05/24/2024 at 12:44 AM CDT Sign off status: Pending * Provider: James Conrad MD Date: 05/20/2024 Generated for Ortiz randall/Nina/Denisse on: 0 05/24/2024 12:44 AM CDT History and Physical Notes * HPI (History [...]
--- OUTSIDE RECORDS SUMMARY | 2024-05-24 00:45 | XMS_ITS ---
Author Organization [facility] Address [address] [place] [address] Care Team Providers Care Gang Punch Operator Name Role Phone Chela PRAJAPATI, Dr Angelo Primary Care Provider Nita Naqvi Unavailable [phone] REASON FOR VISIT SCIT - Traditional Schedule Allergy Immunotherapy Encounters Encounter Location Date Provider Diagnosis [address] [address] 05/15/2024 Nita Conrad Allergic rhinitis du e [...] Provider Name:Nita felton, 05/30/2024 05:00:00 PM, [address] [place], [address], Provider Name:Nita felton, 06/12/2024 05:00:00 PM, [address] [place], [address], Provider Name:Nita felton, 06/25/2024 05:00:00 PM, [place], [address], Progress Notes * Latrice TATEDOB:1990 (34 yo F)Acc No.[id number]:05/15/2024 SCIT-Aeroallergen Patient: Latrice ROMERO Provider: James Conrad MD :1990 A ge:34 Y S ex:Female Date:05/15/2024 Address:[address] [place], [place] [id number] Pcp:Dr Petey York MD Subjective: * Chief Complaints: * S CIT - Traditional Schedule Allergy Immunotherapy * HPI: * Introduction: The patient is [...] immunotherapy) is on file. * Medical History: * Surgical History: * Hospitalization/Major Diagno stic Procedure: * Medications: Objective: * Vitals: Assessment: * Assessment: 1. [...] Information: * Visit Code: * Procedure Codes: 08258 IMMUNOTHERAPY INJECTIONS. * [employer] Sign off status: Completed true * Provider: James Conrad MD Date: 05/15/2024 Generated for Ortiz randall/Nina/Candiitting on: 05/24/2024 12:45 AM CDT History and Physical Notes * [...]
--- OUTSIDE RECORDS SUMMARY | 2024-05-24 00:45 | XMS_ITS | Referral Summary ---
Author Organization [facility] Address [address] [place] [address] Care Team Providers Care Paper Handler Name Role Phone Ryan Metz MD Primary Care Provider [phone] [facility] and Associated Physician Practices is amultiple site organization consisting of ambulatory clinics and hospital sitesin [place], [place], [place] and [place]. This disclosure is being madepursuant to the Care Everywhere program and may not contain all information available regarding this patient. Last updated 17.[facility] Allergies Active Allergy Reactions Criticality Noted Date [...] 6:14 PM 12/14/2017 4:52 PM Care Teams Paper Handler Relationship Specialty Start Date End Date Ryan Metz MD [address] [place] [phone] PCP - General 05/15/17
--- OUTSIDE RECORDS SUMMARY | 2024-05-24 00:45 | XMS_ITS ---
Author Organization [facility] Address [address] [place] [address] Care Team Providers Care Security Threat Analyst Name Role Phone Uziel Teofilo Jones MD Unavailable [phone] Arian Eaton MD Unavailable [phone] Nathan Fish MD Unavailable [phone] Shara Monreal MD Unavailable [phone] Malorie Malcolm NP Unavailable Petey York MD Primary Care Provider [phone] Active Problems Problem Noted Date Diagnosed Date Breast pain, right 06/27/2022 Invasive ductal carcinoma of breast, female, rig ht 07/30/2021 Encounter for fitting and adjustment of vascular catheter 07/30/2021 Overview (07/30/2021): Added automatically from request for surgery [id number] Malignant neoplasm 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, estrogen receptor negative 07/23/2021 Cancer Staging:Clinical stage from 07/20/2021:Stage IB(cT1c, cN0, cM0, G3, ER-, SD-, HER2-) - Signed by Arian Eaton MD on 07/30/2021 Pathologic stage from 02/10/2022:No Stage Recommended(ypT0, pN0(sn), cM0, GX, ER- , SD-, HER2-) - Signed by Arian Eaton MD on 03/09/2022 Endometriosis 10/22/2019 Overview (10/22/2019): Added automatically from request for surgery [id number] Pelvic and perineal pain 10/22/2019 Overview (10/22/2019): Added automatically from request for surgery [id number] Persistent proteinuria 10/25/2018 Recurrent UTI 10/25/2018 Asymptomatic [...] from the original note were not included. [facility] [facility] [address] This Survivorship Care Plan is a cancer [...] Information: Primary Care Physician Petey York MD [phone] Keanu Fish [phone] Arian Eaton [phone] Teofilo Triplett [phone] Plastic Surgeon Other Providers Treatment Summary Cancer [...] Stage IB (cT1c, cN0, cM0, G3, ER-, SD-, HER2-) - Signed by Arian Eaton MD on 07/30/2021 - Pathologic stage from 02/10/2022: No Stage Recommended (ypT0, pN0(sn), cM0, GX, ER-, SD-, HER2-) -Signed by Arian Eaton MD on [...] equivalent: 238.218 mg/m2 (480 mg) Research Studies [id number] in REsults of Immune Checkpoint Inhibitor Tx (DiRECT):Prospective Study of Cancer Survivors Tx'd w anti-PD-1/antiPD-L1 Immunotherapy in a Community Oncology Setting Status On study Active Start Date 08/13/21 NCT [id number] Persistent symptoms or side effects that have [...] breast cancer could run in the family: Confucianist heritage History of ovarian cancer in the [...] monitoring Every 3 months while on Herceptin BRISKET PULLER: No care telesales team leader to display Pap/pelvic exam (woman only) As [...] Help learning to eat healthier, call the tool analyst at: [facility] . Have an active lifestyle, strive for [...] Cancer.Net--http://www.cancer.net/survivorship Livestrong--http://www.livestrong.org/ Livestrong Care Plan--http://www.livestrongcareplan.org/ National Cancer [place]--http://www.cancer.gov/cancertopics/factsheet/therapy/followup National Cancer [place] Facing Forward: Life After Cancer Treatment--http://www.cancer.gov/cancertopics/coping/irgz-mxvjr-rjtssfatk National Coalition for Cancer Survivorship--http://www.canceradvocacy.org/ National Comprehensive Cancer Network-http://www.nccn.org/patients/resources NCCS Cancer Survival Toolbox-- http://www.canceradvocacy.org/toolbox/ CancerCare--http://www.cancercare.org/ Healthcare.gov (insurance marketplace)-- https://www.healthcare.gov/ Cancer and Careers--http://www.cancerandcareers.org/en [place] Cancer Society:The Survivorship Center--http://www.cancer.org/survivorshipcenter Cancer Support Community- http://www.cancersupportcommunity.org/ Cancer Rehabilitation--www.[facility]/rehab Resolved Problems Problem Noted Date Diagnosed Date Resolved Date Post-operative state 02/22/2022 024
--- OUTSIDE RECORDS SUMMARY | 2024-05-24 00:45 | XMS_ITS | Patient Health Record ---
Author Organization [facility] Address [address] [place] [address] Care Team Providers Care Child Care Worker Name Role Phone Chela PRAJAPATI, Dr Angelo Primary Care Provider Nita Naqvi Unavailable [phone] [facility], Provider Unavailable Unavailab le Allergies Allergen (clinical drug ingredient) Drug/Non Drug Allergy documented on EMR Reaction Allergy Type Onset Date Status Bactrim rash Drug Allergy Active carboplatin CARBOplatin unknown reaction Drug Allergy Active acetaminophen / oxycodone Percocet Vomiting Drug Allergy Active Reason For Referral No Information Medications Medication SIG (Take, Route, Frequency, Duration) Notes Start Date End Date Status Fluticasone Propionate 50 MCG/ACT 2 spray(s) in each nostril once a day for 30 days Active Vyfemla 35 MCG-0.4 MG 1 TAB(S) ORALLY ONCE A DAY *Please review and pick correct strength-formula tion from [employer] options. If intended option is not shown, discontinue and re-order from Quick Search* Not-Taking Levothyroxine Sodium 75 MCG 1 tab(s) orally once a day Active EpiPen 2-Laurent 0.3 mg as directed intramuscularly once for 30 days Active Cetirizine HCl 10 MG 1 tab(s) orally once a day for 30 days Active Medrol 4 MG as directed Orally daily for 6 days 04/01/2024 Not-Taking Famotidine 20 MG 1 tablet Orally Twice a day for 30 days 04/01/2024 Active Linzess 72 MCG Oral for 30 Days Active EPIPEN 2-LAURENT 0.3 mg as directed intramuscularly once for 30 days Active Cetirizine HCl 10 MG 1 tablet Orally Twice a day for 30 days 04/01/2024 Active Montelukast Sodium 10 MG 1 tab(s) orally once a day Active CETIRIZINE 10 mg 1 tab(s) orally once a day for 30 days Active Omeprazole 40 MG Oral for 30 Days Active Social History Tobacco Use: Social History Observation Description Date Details (start date - stop date) Never Smoker NA - NA Tobacco Control (Standard) Question Answer Notes Tobacco use: Nonsmoker Problems Problem Type SNOMED Code ICD Code Onset Dates Problem Status W/U Status Risk Notes Problem Chronic allergic conjunctivitis (03008753) Other chronic allergic conjunctivitis (H10.45) Active confirmed Problem Allergic rhinitis caused by pollen (disorder) (85214365) Allergic rhinitis due to pollen (J30.1) Active confirmed Problem Allergic rhinitis (35732281) Other allergic rhinitis (J30.89) Active confirmed Problem Allergic rhinitis caused by animal hair and dander (471460719146393) Allergic rhinitis due to animal (cat) (dog) hair and dander (J30.81) Active confirmed Vital Signs Oximetry 99 % 04/29/2024 Blood pressure diastolic 74 mm Hg 04/29/2024 Height 64 in 04/29/2024 Blood pressure systolic 108 mm Hg 04/29/2024 Weight 212.4 lbs 04/29/2024 BMI 36.45 kg/m2 04/29/2024 Encounters Encounter Location Date Provider Diagnosis [address] [address] 08/26/2023 Provider [facility] Allergic rhinitis due to pollen J30.[address] [address] 07/24/2023 Nita Conrad Allergic rhinitis du e to pollen J30.1 ; Shortness of breath R06.02 ; Allergic rhinitis due to animal (cat) (dog) hair and dander J30.81 ; Other allergic rhinitis J30.89 and Other chronic allergic conjunctivitis H10.[address] [address] 07/31/2023 Nita Conrad Allergic rhinitis du e to pollen J30.1 ; Allergic rhinitis due to animal (cat) (dog) hair and dander J30.81 ; Other allergic rhinitis J30.89 and Other chronic allergic conjunctivitis H10.45 [facility] [address] [place] [address] 08/10/2023 Nita [place] Allergic rhinitis du e to pollen J30.1 ; Other allergic rhinitis J30.89 ; Allergic rhinitis due to animal (cat) (dog) hair and dander J30.81 and Other chronic [facility]ivitis H10.45 [facility] [address] [place] [address] 08/24/2023 Nita [place] Allergic rhinitis du e to pollen J30.1 ; Other allergic rhinitis J30.89 ; Allergic rhinitis due to animal (cat) (dog) hair and dander J30.81 and Other chronic allergic conjunctivitis H10.45 [facility] [address] [place] [address] 08/29/2023 Nita [place] Allergic rhinitis du e to pollen J30.1 ; Other allergic rhinitis J30.89 ; Allergic rhinitis due to animal (cat) (dog) hair and dander J30.81 and Other chronic allergic conjunctivitis H10.45 [facility] [address] [place] [address] 09/04/2023 Nita [place] Allergic rhinitis du e to pollen J30.1 ; Other allergic rhinitis J30.89 ; Allergic rhinitis due to animal (cat) (dog) hair and dander J30.81 and Other chronic allergic conjunctivitis H10.45 [facility] [address] [place] [address] 09/13/2023 Nita [place] Allergic rhinitis du e to pollen J30.1 ; Other allergic rhinitis J30.89 ; Allergic rhinitis due to animal (cat) (dog) hair and dander J30.81 and Other chronic allergic conjunctivitis H10.45 [facility] [place] [address] [place] [address] 09/20/2023 Nita [place] Allergic rhinitis du e to pollen J30.1 ; Other allergic rhinitis J30.89 ; Allergic rhinitis due to animal (cat) (dog) hair and dander J30.81 and Other chronic allergic conjunctivitis H10.45 [facility] [address] [place] [address] 09/28/2023 Nita [place] Allergic rhinitis du e to pollen J30.1 ; Other allergic rhinitis J30.89 ; Allergic rhinitis due to animal (cat) (dog) hair and dander J30.81 and Other chronic allergic conjunctivitis H10.45 [facility] [address] [place] [address] 10/03/2023 Nita [place] Allergic rhinitis du e to pollen J30.1 ; Other allergic rhinitis J30.89 ; Allergic rhinitis due to animal (cat) (dog) hair and dander J30.81 and Other chronic allergic conjunctivitis H10.45 [facility] [address] [place] [address] 10/17/2023 Nita [place] Allergic rhinitis du e to pollen J30.1 ; Other allergic rhinitis J30.89 ; Allergic rhinitis due to animal (cat) (dog) hair and dander J30.81 and Other chronic allergic conjunctivitis H10.45 [facility] [address] [place] [address] 10/24/2023 Nita [place] Allergic rhinitis du e to pollen J30.1 ; Other allergic rhinitis J30.89 ; Allergic rhinitis due to animal (cat) (dog) hair and dander J30.81 and Other chronic allergic conjunctivitis H10.45 [facility] [address] [place] [address] 10/31/2023 Nita [place] Allergic rhinitis du e to pollen J30.1 ; Other allergic rhinitis J30.89 ; Allergic rhinitis due to animal (cat) (dog) hair and dander J30.81 and Other chronic allergic conjunctivitis H10.45 [facility] [address] [place] [address] 11/07/2023 Nita [place] Allergic rhinitis du e to pollen J30.1 ; Other allergic rhinitis J30.89 ; Allergic rhinitis due to animal (cat) (dog) hair and dander J30.81 and Other chronic allergic conjunctivitis H10.45 [facility] [address] [place] [address] 11/14/2023 Nita [place] Allergic rhinitis du e to pollen J30.1 ; Other allergic rhinitis J30.89 ; Allergic rhinitis due to animal (cat) (dog) hair and dander J30.81 and Other chronic allergic conjunctivitis H10.45 [facility] [address] [place] [address] 11/22/2023 Nita [place] Allergic rhinitis du e to pollen J30.1 ; Other allergic rhinitis J30.89 ; Allergic rhinitis due to animal (cat) (dog) hair and dander J30.81 and Other chronic allergic conjunctivitis H10.45 [facility] [address] [place] [address] 12/05/2023 Nita [place] Allergic rhinitis du e to pollen J30.1 ; Other allergic rhinitis J30.89 ; Allergic rhinitis due to animal (cat) (dog) hair and dander J30.81 and Other chronic allergic conjunctivitis H10.[address] [place] [address] 12/12/2023 Nita [place] Allergic rhinitis du e to pollen J30.1 ; Other allergic rhinitis J30.89 ; Allergic rhinitis due to animal (cat) (dog) hair and dander J30.81 and Other chronic allergic conjunctivitis H10.[address] [place] [address] 12/19/2023 Nita [place] Allergic rhinitis du e to pollen J30.1 ; Other allergic rhinitis J30.89 ; Allergic rhinitis due to animal (cat) (dog) hair and dander J30.81 and Other chronic allergic conjunctivitis H10.45 [facility] [address] [place] [address] 12/26/2023 Nita [place] Allergic rhinitis du e to pollen J30.1 ; Other allergic rhinitis J30.89 ; Allergic rhinitis due to animal (cat) (dog) hair and dander J30.81 and Other chronic allergic conjunctivitis H10.45 [facility] [address] [place] [address] 01/02/2024 Nita [place] Allergic rhinitis du e to pollen J30.1 ; Other allergic rhinitis J30.89 ; Allergic rhinitis due to animal (cat) (dog) hair and dander J30.81 and Other chronic allergic conjunctivitis H10.45 [facility] [address] [place] [address] 01/11/2024 Nita [place] Allergic rhinitis du e to pollen J30.1 ; Other allergic rhinitis J30.89 ; Allergic rhinitis due to animal (cat) (dog) hair and dander J30.81 and Other chronic allergic conjunctivitis H10.45 [facility] [address] [place] [address] 01/17/2024 Nita Houston Allergic rhinitis du e to pollen J30.1 ; Other allergic rhinitis J30.89 ; Allergic rhinitis due to animal (cat) (dog) hair and dander J30.81 and Other chronic allergic conjunctivitis H10.45 [facility] [address] [place] [address] 01/30/2024 Nita Houston Allergic rhinitis du e to pollen J30.1 ; Other allergic rhinitis J30.89 ; Allergic rhinitis due to animal (cat) (dog) hair and dander J30.81 and Other chronic allergic conjunctivitis H10.45 [facility] [address] [place] [address] 02/05/2024 Nita [place] Allergic rhinitis du e to pollen J30.1 ; Other allergic rhinitis J30.89 ; Allergic rhinitis due to animal (cat) (dog) hair and dander J30.81 and Other chronic allergic conjunctivitis H10.45 [facility] [address] [place] [address] 02/12/2024 Nita [place] Allergic rhinitis du e to pollen J30.1 ; Other allergic rhinitis J30.89 ; Allergic rhinitis due to animal (cat) (dog) hair and dander J30.81 and Other chronic allergic conjunctivitis H10.45 [facility] [address] [place] [address] 02/20/2024 Nita Houston Allergic rhinitis du e to pollen J30.1 ; Other allergic rhinitis J30.89 ; Allergic rhinitis due to animal (cat) (dog) hair and dander J30.81 and Other chronic allergic conjunctivitis H10.45 [facility] [address] [place] [address] 02/27/2024 Nita [place] Allergic rhinitis du e to pollen J30.1 ; Other allergic rhinitis J30.89 ; Allergic rhinitis due to animal (cat) (dog) hair and dander J30.81 and Other chronic allergic conjunctivitis H10.45 [facility] [address] [place] [address] 03/11/2024 Nita [place] Allergic rhinitis du e to pollen J30.1 ; Other allergic rhinitis J30.89 ; Allergic rhinitis due to animal (cat) (dog) hair and dander J30.81 and Other chronic allergic conjunctivitis H10.45 [facility] [address] [place] [address] 03/27/2024 Nita Housotn Allergic rhinitis du e to pollen J30.1 ; Other allergic rhinitis J30.89 ; Allergic rhinitis due to animal (cat) (dog) hair and dander J30.81 and Other chronic allergic conjunctivitis H10.45 [facility] [address] [place] [address] 04/01/2024 Nita [place] Allergic rhinitis du e to pollen J30.1 ; Dermatitis, unspecified L30.9 ; Shortness of breath R06.02 ; Allergic rhinitis due to animal (cat) (dog) hair and dander J30.81 ; Other allergic rhinitis J30.89 and Other chronic allergic conjunctivitis H10.45 [facility] [place] [address] [place] [address] 04/10/2024 Nita Houston Allergic rhinitis du e to pollen J30.1 ; Other allergic rhinitis J30.89 ; Allergic rhinitis due to animal (cat) (dog) hair and dander J30.81 and Other chronic allergic conjunctivitis H10.45 [facility] [place] [address] [place] [address] 04/15/2024 Nita Houston Allergic rhinitis du e to pollen J30.1 ; Other allergic rhinitis J30.89 ; Allergic rhinitis due to animal (cat) (dog) hair and dander J30.81 and Other chronic allergic conjunctivitis H10.45 [facility] [place] [address] [place] [address] 04/22/2024 Nita [place] Allergic rhinitis du e to pollen J30.1 ; Other allergic rhinitis J30.89 ; Allergic rhinitis due to animal (cat) (dog) hair and dander J30.81 and Other chronic allergic conjunctivitis H10.45 [facility] [place] [address] [place] [address] 04/29/2024 Nita Houston Allergic rhinitis du e to pollen J30.1 ; Dermatitis, unspecified L30.9 ; Shortness of breath R06.02 ; Allergic rhinitis due to animal (cat) (dog) hair and dander J30.81 ; Other allergic rhinitis J30.89 and Other chronic allergic conjunctivitis H10.45 [facility] [address] [place] [address] 05/15/2024 Nita Houston Allergic rhinitis du e to pollen J30.1 ; Other allergic rhinitis J30.89 ; Allergic rhinitis due to animal (cat) (dog) hair and dander J30.81 and Other chronic allergic conjunctivitis H10.45 [facility] [place] [address] [place] [address] 06/15/2023 Nita Houston [facility] [place] [address] [place] [address] 06/27/2023 Nita [place] [facility] [address] [place] [address] 08/01/2023 Nita [place] [facility] [address] [place] [address] 08/03/2023 Nita Conrad [facility] [place] [address] [address] 04/01/2024 Nita Conrad [facility] [place] [address] [address] 08/02/2023 Nita Conrad [facility] [place] [address] [address] 08/02/2023 Nita [facility] [place] [address] [place] [address] 08/02/2023 Nita Conrad Assessments Encounter Date Diagnosis (ICD Code) Assessment Notes Treatment Notes Treatment Clinical Notes Section Notes 07/24/2023 Shortness of breath (ICD-10 - R06.02) PFTs normal and no improvement with albuterol. May be secondary to the new cat since improves with Zyrtec. ImmunoCAP positive for cat and dog but negative on intradermal testing and skin prick testing. Skin testing may be negative since cat has only been present in the home 6 months. Monitor for improvement as we advance immunotherapy. 07/24/2023 Allergic rhinitis due to pollen (ICD-10 - [...] for 2 hours after leaving the office. 07/31/2023 Allergic rhinitis due to pollen (ICD-10 - J30.1) Latrice clearly suffers from atopic disease based upon our skin testing and clinical history. She received the incorrect immunotherapy today. Within minutes of receiving immunotherapy, she was notified of the mistake and brought back to an exam room. Mild throat clearing was present when I notified her of the mistake, but no signs of systemic reaction including rash, urticaria, angioedema, respiratory distress, diarrhea, or vomiting were present. She took Zyrtec 2 hours prior to immunotherapy and was treated with Singulair 10 mg, Famotidine 20 mg and Prednisone 60 mg as a precautionary measure. She was monitored for over 75 minutes after receiving the immunotherapy. Throat clearing continued to be present, but no other signs of systemic reaction and resolved by the time she was discharged home. Slight redness at the site of immunotherapy which is consistent with regular immunotherapy injections. Incident report was filled out for the office. 07/31/2023 Allergic rhinitis due to animal (cat) (dog) hair and dander (ICD-10 - J30.81) 08/10/2023 Allergic rhinitis due to pollen (ICD-10 - J30.1) 08/10/2023 Other allergic rhinitis (ICD-10 - J30.89) 08/24/2023 Allergic rhinitis due to pollen (ICD-10 - J30.1) 08/24/2023 Other allergic rhinitis (ICD-10 - J30.89) 08/26/2023 Allergic rhinitis due to pollen (ICD-10 - J30.1) 08/29/2023 Allergic rhinitis due to pollen (ICD-10 - J30.1) 08/29/2023 Other allergic rhinitis (ICD-10 - J30.89) 09/04/2023 Allergic rhinitis due to pollen (ICD-10 - J30.1) 09/04/2023 Other allergic rhinitis (ICD-10 - J30.89) 09/13/2023 Allergic rhinitis due to pollen (ICD-10 - J30.1) 09/13/2023 Other allergic rhinitis (ICD-10 - J30.89) 09/20/2023 Allergic rhinitis due to pollen (ICD-10 - J30.1) 09/20/2023 Other allergic rhinitis (ICD-10 - J30.89) 09/28/2023 Allergic rhinitis due to pollen (ICD-10 - J30.1) 09/28/2023 Other allergic rhinitis (ICD-10 - J30.89) 10/03/2023 Allergic rhinitis due to pollen (ICD-10 - J30.1) 10/03/2023 Other allergic rhinitis (ICD-10 - J30.89) 10/17/2023 Allergic rhinitis due to pollen (ICD-10 - J30.1) 10/17/2023 Other allergic rhinitis (ICD-10 - J30.89) 10/24/2023 Allergic rhinitis due to pollen (ICD-10 - J30.1) 10/24/2023 Other allergic rhinitis (ICD-10 - J30.89) 10/31/2023 Allergic rhinitis due to pollen (ICD-10 - J30.1) 10/31/2023 Other allergic rhinitis (ICD-10 - J30.89) 11/07/2023 Allergic rhinitis due to pollen (ICD-10 - J30.1) 11/07/2023 Other allergic rhinitis (ICD-10 - J30.89) 11/14/2023 Allergic rhinitis due to pollen (ICD-10 - J30.1) 11/14/2023 Other allergic rhinitis (ICD-10 - J30.89) 11/22/2023 Allergic rhinitis due to pollen (ICD-10 - J30.1) 11/22/2023 Other allergic rhinitis (ICD-10 - J30.89) 12/05/2023 Allergic rhinitis due to pollen (ICD-10 - J30.1) 12/05/2023 Other allergic rhinitis (ICD-10 - J30.89) 12/12/2023 Allergic rhinitis due to pollen (ICD-10 - J30.1) 12/12/2023 Other allergic rhinitis (ICD-10 - J30.89) 12/19/2023 Allergic rhinitis due to pollen (ICD-10 - J30.1) 12/19/2023 Other allergic rhinitis (ICD-10 - J30.89) 12/26/2023 Allergic rhinitis due to pollen (ICD-10 - J30.1) 12/26/2023 Other allergic rhinitis (ICD-10 - J30.89) 01/02/2024 Allergic rhinitis due to pollen (ICD-10 - J30.1) 01/02/2024 Other allergic rhinitis (ICD-10 - J30.89) 01/11/2024 Allergic rhinitis due to pollen (ICD-10 - J30.1) 01/11/2024 Other allergic rhinitis (ICD-10 - J30.89) 01/17/2024 Allergic rhinitis due to pollen (ICD-10 - J30.1) 01/17/2024 Other allergic rhinitis (ICD-10 - J30.89) 01/30/2024 Allergic rhinitis due to pollen (ICD-10 - J30.1) 01/30/2024 Other allergic rhinitis (ICD-10 - J30.89) 02/05/2024 Allergic rhinitis due to pollen (ICD-10 - J30.1) 02/05/2024 Other allergic rhinitis (ICD-10 - J30.89) 02/12/2024 Allergic rhinitis due to pollen (ICD-10 - J30.1) 02/12/2024 Other allergic rhinitis (ICD-10 - J30.89) 02/20/2024 Allergic rhinitis due to pollen (ICD-10 - J30.1) 02/20/2024 Other allergic rhinitis (ICD-10 - J30.89) 02/27/2024 Allergic rhinitis due to pollen (ICD-10 - J30.1) 02/27/2024 Other allergic rhinitis (ICD-10 - J30.89) 03/11/2024 Allergic rhinitis due to pollen (ICD-10 - J30.1) 03/11/2024 Other allergic rhinitis (ICD-10 - J30.89) 03/27/2024 Allergic rhinitis due to pollen (ICD-10 - J30.1) 03/27/2024 Other allergic rhinitis (ICD-10 - J30.89) 04/01/2024 Allergic rhinitis due to pollen (ICD-10 - [...] for 2 hours after leaving the office. 04/01/2024 Dermatitis, unspecified (ICD-10 - L30.9) unclear cause for rash but does not appear related to immunotherapy since occurring over 1 week. Start Zyrtec, Famotidine and steroids as above. F/u in 1 month. 04/10/2024 Allergic rhinitis due to pollen (ICD-10 - J30.1) 04/10/2024 Other allergic rhinitis (ICD-10 - J30.89) 04/15/2024 Allergic rhinitis due to pollen (ICD-10 - J30.1) 04/15/2024 Other allergic rhinitis (ICD-10 - J30.89) 04/22/2024 Allergic rhinitis due to pollen (ICD-10 - J30.1) 04/22/2024 Other allergic rhinitis (ICD-10 - J30.89) 04/29/2024 Allergic rhinitis due to pollen (ICD-10 [...] difficulty with products. Recommend Aquaphor or Vaseline. 05/15/2024 Allergic rhinitis due to pollen (ICD-10 - J30.1) 05/15/2024 Other allergic rhinitis (ICD-10 - J30.89) 05/15/2024 Allergic rhinitis due to animal (cat) (dog) hair and dander (ICD-10 - J30.81) 04/29/2024 Shortness of breath (ICD-10 - R06.02) PFTs normal and no improvement with albuterol. May be secondary to the new cat since improves with Zyrtec. ImmunoCAP positive for cat and dog but negative on intradermal testing and skin prick testing. Skin testing may be negative since cat has only been present in the home 6 months 04/22/2024 Allergic rhinitis due to animal (cat) (dog) hair and dander (ICD-10 - J30.81) 04/15/2024 Allergic rhinitis due to animal (cat) (dog) hair and dander (ICD-10 - J30.81) 04/10/2024 Allergic rhinitis due to animal (cat) (dog) hair and dander (ICD-10 - J30.81) 04/01/2024 Shortness of breath (ICD-10 - R06.02) PFTs normal and no improvement with albuterol. May be secondary to the new cat since improves with Zyrtec. ImmunoCAP positive for cat and dog but negative on intradermal testing and skin prick testing. Skin testing may be negative since cat has only been present in the home 6 months 03/27/2024 Allergic rhinitis due to animal (cat) (dog) hair and dander (ICD-10 - J30.81) 03/11/2024 Allergic rhinitis due to animal (cat) (dog) hair and dander (ICD-10 - J30.81) 02/27/2024 Allergic rhinitis due to animal (cat) (dog) hair and dander (ICD-10 - J30.81) 02/20/2024 Allergic rhinitis due to animal (cat) (dog) hair and dander (ICD-10 - J30.81) 02/12/2024 Allergic rhinitis due to animal (cat) (dog) hair and dander (ICD-10 - J30.81) 02/05/2024 Allergic rhinitis due to animal (cat) (dog) hair and dander (ICD-10 - J30.81) 01/30/2024 Allergic rhinitis due to animal (cat) (dog) hair and dander (ICD-10 - J30.81) 01/17/2024 Allergic rhinitis due to animal (cat) (dog) hair and dander (ICD-10 - J30.81) 01/11/2024 Allergic rhinitis due to animal (cat) (dog) hair and dander (ICD-10 - J30.81) 01/02/2024 Allergic rhinitis due to animal (cat) (dog) hair and dander (ICD-10 - J30.81) 12/26/2023 Allergic rhinitis due to animal (cat) (dog) hair and dander (ICD-10 - J30.81) 12/19/2023 Allergic rhinitis due to animal (cat) (dog) hair and dander (ICD-10 - J30.81) 12/12/2023 Allergic rhinitis due to animal (cat) (dog) hair and dander (ICD-10 - J30.81) 12/05/2023 Allergic rhinitis due to animal (cat) (dog) hair and dander (ICD-10 - J30.81) 11/22/2023 Allergic rhinitis due to animal (cat) (dog) hair and dander (ICD-10 - J30.81) 11/14/2023 Allergic rhinitis due to animal (cat) (dog) hair and dander (ICD-10 - J30.81) 11/07/2023 Allergic rhinitis due to animal (cat) (dog) hair and dander (ICD-10 - J30.81) 10/31/2023 Allergic rhinitis due to animal (cat) (dog) hair and dander (ICD-10 - J30.81) 10/24/2023 Allergic rhinitis due to animal (cat) (dog) hair and dander (ICD-10 - J30.81) 10/17/2023 Allergic rhinitis due to animal (cat) (dog) hair and dander (ICD-10 - J30.81) 10/03/2023 Allergic rhinitis due to animal (cat) (dog) hair and dander (ICD-10 - J30.81) 09/28/2023 Allergic rhinitis due to animal (cat) (dog) hair and dander (ICD-10 - J30.81) 09/20/2023 Allergic rhinitis due to animal (cat) (dog) hair and dander (ICD-10 - J30.81) 09/13/2023 Allergic rhinitis due to animal (cat) (dog) hair and dander (ICD-10 - J30.81) 09/04/2023 Allergic rhinitis due to animal (cat) (dog) hair and dander (ICD-10 - J30.81) 08/29/2023 Allergic rhinitis due to animal (cat) (dog) hair and dander (ICD-10 - J30.81) 08/24/2023 Allergic rhinitis due to animal (cat) (dog) hair and dander (ICD-10 - J30.81) 08/10/2023 Allergic rhinitis due to animal (cat) (dog) hair and dander (ICD-10 - J30.81) 07/31/2023 Other allergic rhinitis (ICD-10 - J30.89) 07/24/2023 Allergic rhinitis due to animal (cat) (dog) hair and dander (ICD-10 - J30.81) Follow allergen avoidance, meds and consider SCIT as an adjunctive treatment to current regimen 07/31/2023 Other chronic allergic conjunctivitis (ICD-10 - H10.45) Given ocular signs and symptoms I encouraged allergy avoidance measures and meds as above. If symptoms persist, consider adding additional medications including intraocular antihistamine/mas t cell stabilizer, PRN 08/10/2023 Other chronic allergic conjunctivitis (ICD-10 - H10.45) 07/24/2023 Other allergic rhinitis (ICD-10 - J30.89) Follow allergen avoidance, meds and consider SCIT as an adjunctive treatment to current regimen 08/24/2023 Other chronic allergic conjunctivitis (ICD-10 - H10.45) 08/29/2023 Other chronic allergic conjunctivitis (ICD-10 - H10.45) 09/04/2023 Other chronic allergic conjunctivitis (ICD-10 - H10.45) 09/13/2023 Other chronic allergic conjunctivitis (ICD-10 - H10.45) 09/20/2023 Other chronic allergic conjunctivitis (ICD-10 - H10.45) 09/28/2023 Other chronic allergic conjunctivitis (ICD-10 - H10.45) 10/03/2023 Other chronic allergic conjunctivitis (ICD-10 - H10.45) 10/17/2023 Other chronic allergic conjunctivitis (ICD-10 - H10.45) 10/24/2023 Other chronic allergic conjunctivitis (ICD-10 - H10.45) 10/31/2023 Other chronic allergic conjunctivitis (ICD-10 - H10.45) 11/07/2023 Other chronic allergic conjunctivitis (ICD-10 - H10.45) 11/14/2023 Other chronic allergic conjunctivitis (ICD-10 - H10.45) 11/22/2023 Other chronic allergic conjunctivitis (ICD-10 - H10.45) 12/05/2023 Other chronic allergic conjunctivitis (ICD-10 - H10.45) 12/12/2023 Other chronic allergic conjunctivitis (ICD-10 - H10.45) 12/19/2023 Other chronic allergic conjunctivitis (ICD-10 - H10.45) 12/26/2023 Other chronic allergic conjunctivitis (ICD-10 - H10.45) 01/02/2024 Other chronic allergic conjunctivitis (ICD-10 - H10.45) 01/11/2024 Other chronic allergic conjunctivitis (ICD-10 - H10.45) 01/17/2024 Other chronic allergic conjunctivitis (ICD-10 - H10.45) 01/30/2024 Other chronic allergic conjunctivitis (ICD-10 - H10.45) 02/05/2024 Other chronic allergic conjunctivitis (ICD-10 - H10.45) 02/12/2024 Other chronic allergic conjunctivitis (ICD-10 - H10.45) 02/20/2024 Other chronic allergic conjunctivitis (ICD-10 - H10.45) 02/27/2024 Other chronic allergic conjunctivitis (ICD-10 - H10.45) 03/11/2024 Other chronic allergic conjunctivitis (ICD-10 - H10.45) 03/27/2024 Other chronic allergic conjunctivitis (ICD-10 - H10.45) 04/01/2024 Allergic rhinitis due to animal (cat) (dog) hair and dander (ICD-10 - J30.81) 04/10/2024 Other chronic allergic conjunctivitis (ICD-10 - H10.45) 04/15/2024 Other chronic allergic conjunctivitis (ICD-10 - H10.45) 04/22/2024 Other chronic allergic conjunctivitis (ICD-10 - H10.45) 04/29/2024 Allergic rhinitis due to animal (cat) (dog) hair and dander (ICD-10 - J30.81) 05/15/2024 Other chronic allergic conjunctivitis (ICD-10 - H10.45) 04/29/2024 Other allergic rhinitis (ICD-10 - J30.89) Follow allergen avoidance, meds and continue SCIT as an adjunctive treatment to current regimen 04/01/2024 Other allergic rhinitis (ICD-10 - J30.89) Follow allergen avoidance, meds and continue SCIT as an adjunctive treatment to current regimen 07/24/2023 Other chronic allergic conjunctivitis (ICD-10 - H10.45) Given ocular signs and symptoms I encouraged allergy avoidance measures and meds as above. If symptoms persist, consider adding additional medications including intraocular antihistamine/mas t cell stabilizer, PRN and consider SCIT as an adjunctive measure 04/01/2024 Other chronic allergic conjunctivitis (ICD-10 - H10.45) Given ocular signs and symptoms I encouraged allergy avoidance measures and meds as above. If symptoms persist, consider adding additional medications including intraocular antihistamine/mas t cell stabilizer, PRN 04/29/2024 Other chronic allergic conjunctivitis (ICD-10 - H10.45) Given ocular signs and symptoms I encouraged allergy avoidance measures and meds as above. If symptoms persist, consider adding additional medications including intraocular antihistamine/mas t cell stabilizer, PRN 03/18/2024 Other 07/31/2023 Other Plan Of Treatment Next Appt Details Provider Name:Nita felton, 05/30/2024 05:00:00 PM, [facility] [place], [address], Provider Name:Nita felton, 06/12/2024 05:00:00 PM, [facility] [place], [address], Provider Name:Nita felton, 06/25/2024 05:00:00 PM, [facility] [place], [address], Insurance Providers Payer Name Payer Address Payer Phone Subscriber Number Group Number Insured Name Patient Relationship to Insured Coverage Start Date Coverage End Date [employer] Choice II [address] [address] [facility] [place] [address] [id number] Latrice Tate Self - patient is the insured Medical (General) History Medical History History ICD Code Hypothyroidism Cancer Surgical History Surgery Date(Month/Year) Lumpectomy 02/10/2022 port removal 07/14/2023
--- OUTSIDE RECORDS SUMMARY | 2024-05-24 00:45 | XMS_ITS | Clinical Summary ---
Author Organization [facility] [employer] Address [address] [place] [address] Care Team Providers Care Supervisor Prep Name Role Phone Ryan Metz MD Primary Care Provider [phone] Source Comments [facility] [employer],non-[facility] Affiliates and Associated Physician Practices is amultiple site organization consisting of ambulatory clinics and hospital sitesin [place], [place], [place] and [place]. This disclosure is being madepursuant to the Care Everywhere program and may not contain all information available regarding this patient. Last updated 17.[facility] Allergies Active Allergy Reactions Criticality Noted Date [...] - 19+ 3-dose series) 01/06/2011 COVID-19 VACCINE (1 - 2023-2 5 season) 2023 INFLUENZA VACCINE (#1) 2023 DEPRESSION SCREENING 03/13/2024 ZOSTER VACCINE (1 of 2) 01/06/2042 HIB VACCINE Aged Out No longer eligi ble based on patient's age to complete this topic HPV VACCINE Aged Out No longer eligi ble based on patient's age to complete this topic MENINGOCOCCAL (Group B) VACC INE SHARED DECISION-MAKING Aged Out No longer eligibl e based on patient's age to complete this topic MENINGOCOCCAL GROUPS A/C/Y/W VACCINE Aged Out No longer eligible b ased on patient's age to complete this topic PNEUMOCOCCAL VACCINE Aged Out No long er eligible based on patient's age to complete this topic Advance Directives * Full Code (Latest Code Status on File) Date Activated Date Inactivated Comments 12/13/2017 6:14 PM 12/14/2017 4:52 PM Care Teams Supervisor Prep Relationship Specialty Start Date End Date Ryan Metz MD [address] [place] [address] PCP - General 05/15/17
--- OUTSIDE RECORDS SUMMARY | 2024-05-24 00:45 | XMS_ITS | Encounter Summary ---
Author Organization [facility] Address [address] [place] [address] Care Team Providers Care Video Machines Mechanic Name Role Phone Ryan Metz MD Primary Care Provider [phone] Encounter Details Date Type Department Care Team (Late st Contact Info) Description 12/14/2023 Lab Requisition [facility] - DermPath Lab [address], [place] [phone] Fina Cueto MD [address] [address] Social History Tobacco Use Types Packs/Day [...] AM CDT) Case Report Dermatopathology Report Case: [id number] Authorizing Provider: Fina Cueto MD Collected: 12/14/2023 12:00 AM Ordering Location: [facility] - Received: 12/18/2023 08:49 AM [...] The specimen is serially sectioned and a pharmaceutical sales representative section is submitted in cassette 1. [...] characteristic determined by the Dermatopathology Laboratory at [facility], directed by Dr. Tigre Fenton. These tests need not be, and therefore are not, approved by the [place] Food and Drug Administration. The tests are used for clinical purposes. Billing Codes Specimen Charges Stain Charges 42111 1 31650 33384 49613 18247 87714 86487 1 1 1 1 1 1 4 3:57 PM CDT DERMATOPATHOLOGY LABORATORY Embedded Images 4 3:57 PM CDT DERMATOPATHOLOGY LABORATORY Pathology/Cytolog y TISSUE SPECIMEN FROM SKIN / Unknown 12/14/2023 12/18/2023 8:49 AM CDT Fina Cueto MD LAB - PATHOLOGY/CYTO LOGY ORDERABLES DERMATOPATHOLOGY LABORATORY [facility] - Department of Dermatology [address], [address] [phone] documented in this encounter Visit Diagnoses Not on filedocumented in this encounter Care Teams Video Machines Mechanic Relationship Specialty Start Date End Date Ryan Metz MD [address] [place] [address] [place] [address] PCP - General 05/15/17 documented as of this encounter
--- OUTSIDE RECORDS SUMMARY | 2024-05-24 00:45 | XMS_ITS | Clinical Summary ---
Author Organization [facility] Address [address] [place] [address] Care Team Providers Care Security Guards Dispatcher Name Role Phone Uziel Teofilo Jones MD Unavailable [phone] Arian Eaton MD Unavailable [phone] Nathan Fish MD Unavailable [phone] Shara Monreal MD Unavailable [phone] Malorie Malcolm NP Unavailable Petey York MD Primary Care Provider [phone] Allergies Active Allergy Reactions Criticality Noted Date [...] tablet TAKE 1 TABLET(75 MCG) BY MOUTH RIG BUILDER HELPER BEFORE BREAKFAST 90 tablet 1 11/03/19 24 [...] (07/30/2021): Added automatically from request for surgery [id number] Malignant neoplasm 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, estrogen receptor negative 07/23/2021 Cancer Staging:Clinical stage from 07/20/2021:Stage IB(cT1c, cN0, cM0, G3, ER-, FL-, HER2-) - Signed by Arian Eaton MD on 07/30/2021 Pathologic stage from 02/10/2022:No Stage Recommended(ypT0, pN0(sn), cM0, GX, ER- , FL-, HER2-) - Signed by Arian Eaton MD on 03/09/2022 Endometriosis 10/22/2019 Overview (10/22/2019): Added automatically from request for surgery [id number] Pelvic and perineal pain 10/22/2019 Overview (10/22/2019): Added automatically from request for surgery [id number] Persistent proteinuria 10/25/2018 Recurrent UTI 10/25/2018 Asymptomatic microscopic hematuria 10/25/2018 Acute kidney injury 12/13/2017 Resolved Problems Problem Noted Date Diagnosed Date Resolved Date Post-operative state 02/22/2022 024 Encounters Date Type Department Care Team Description 05/06/2024 2:45 PM JAVA SECURITY ARCHITECT Office Visit [facility] [address] [place] [phone] Nathan Fish MD Malignant 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, estrogen receptor negative (HCC) (Primary Dx) 05/06/2024 2:00 PM JAVA SECURITY ARCHITECT Office Visit [facility] Radiation Oncology [facility] [place] [address] Arian Eaton MD Malignant 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, estrogen receptor negative (HCC) (Primary Dx) 05/06/2024 Orders Only [facility] [address] [facility] [address] [place] [address] Nathan Fish MD Invasive ductal carcinoma of breast, female, right (HCC) (Primary Dx); Malignant 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, estrogen receptor negative (HCC) 05/06/2024 Documentation [facility] [address] [place] [phone] Inessa Heart RC 02/29/2024 Telephone [facility] - Imaging [address] [place] [address] [address] [place] [phone] Jocelin Jones, YANNA Follow-Up Call 24-48 Hours; Test Results 02/28/2024 10:30 AM JAVA SECURITY ARCHITECT - 02/28/2024 11:59 PM JAVA SECURITY ARCHITECT Hospital Encounter [facility] - Imaging [address] [place] [phone] Abnormal MRI, breast Discharge Disposition: Discharge to home or self care 02/28/2024 7:24 AM JAVA SECURITY ARCHITECT - 02/28/2024 11:59 PM JAVA SECURITY ARCHITECT Hospital Encounter [facility] Imaging [address] [place] [phone] Abnormal MRI, breast Discharge Disposition: Discharge to [...] on file Legal Sex Female 12:06 AM JAVA SECURITY ARCHITECT Gender Identity Not on file Sexual Orientation Not on file Occupation Industry Job Start Date Job End Date [employer] Not on file Not on file Not on file Obstetrics History Para Term AB IAB SAB Ectopic Multiple Livin g Live Births 0 0 0 0 0 0 0 0 0 0 0 Last Filed Vital Signs Vital Sign Reading Time Taken Comments Blood Pressure 126/82 05/06/2024 1:56 PM JAVA SECURITY ARCHITECT Pulse 98 05/06/2024 1:56 PM JAVA SECURITY ARCHITECT Temperature 36.1 C (97 F) 05/06/2024 2:30 PM JAVA SECURITY ARCHITECT Respiratory Rate 18 05/06/2024 1:56 PM JAVA SECURITY ARCHITECT Oxygen Saturation 100% 05/06/2024 1:56 PM JAVA SECURITY ARCHITECT Inhaled Oxygen Concentration - - Weight 95.7 kg (211 lb) 05/06/2024 2:30 PM JAVA SECURITY ARCHITECT Height 162.6 cm (5' 4 ) 05/06/2024 2:30 PM JAVA SECURITY ARCHITECT Body Mass Index 36.22 05/06/2024 2:30 PM JAVA SECURITY ARCHITECT Plan of Treatment Health Maintenance Due Date [...] this topic Medical Devices Implanted Type Area Parking Enforcement Technician Device Identifier Shelf Expiration Date Model / Serial / Lot Luxim Magseed 18ga 7cm Marker Breast Biopsy [id number] Right: Breast Luxim [id number] 12/10/2025 [id number] / / [id number] [employer] [facility] Trimark Second Marker Breast Biopsy Disposable Trimark Td 2s 13-Mr - [id number] Implanted:Qty: 1 on 02/28/2024 by Consuelo Altman MD at [facility] Right: Breast [employer] [id number] 06/13/2025 TRIMARK TD 2S 13-MR / / [id number] Explanted Type Area Parking Enforcement Technician Device Identifier Shelf Expiration Date Model / Serial / Lot [employer] Powerport Isp Mri Airguard 8fr 1 Lumen Attachable Catheter Open Latex Free [id number] - [id number] Implanted:Qty: 1 on 08/06/2021 by Koffi Brandon MD at [facility] Explanted:Qty: 1 Right: Chest [employer] 09/09/2022 [id number] / / [id number] Procedures Procedure Name Priority Date/Time Associated Diagnosis Comments MAMM POST CLIP PLACEMENT RIGHT Schedule Routine, Read Routine (OP Routine) 02/28/2024 10:50 AM JAVA SECURITY ARCHITECT Abnormal MRI, breast MRI GUIDED BREAST BIOPSY RIGHT Schedule Routine, Read Routine (OP Routine) 02/28/2024 10:28 AM JAVA SECURITY ARCHITECT Abnormal MRI, breast SURGICAL PATHOLOGY Routine 02/28/2024 10:01 AM JAVA SECURITY ARCHITECT Abnormal MRI, breast PAP AND HPV, REFLEX TO HPV GENOTYPES Routine 09/18/2023 4:32 AM CDT Screening for cervical cancer Screening for human papillomavirus (HPV) HEPATITIS C ANTIBODY Routine 07/11/2022 1:00 PM CDT from Last 3 Months or Most Recently Relevant to Health Maintenance Results * Mammo Post Clip Placement Right (02/28/2024 10:50 AM JAVA SECURITY ARCHITECT) Anatomical Region Laterality Modality Breast Right Mammography 02/28/2024 11:3 1 AM JAVA SECURITY ARCHITECT Addenda Addendum by Consuelo Altman MD on 02/29/2024 4:10 PM JAVA SECURITY ARCHITECT Pathology report for MRI guided core needle [...] patient by the nursing staff of the [facility]. Electronically signed by: Consuelo Altman M.D. Impressions 02/28/2024 11:31 AM JAVA SECURITY ARCHITECT Successful MRI guided biopsy of enhancement in the lumpectomy site of the right breast. Pathology report is pending. ASSESSMENT: Post-procedure mammogram for marker placement. Electronically signed by: Consuelo Altman M.D. Narrative 02/28/2024 11:31 AM JAVA SECURITY ARCHITECT MRI GUIDED CORE NEEDLE BIOPSY RIGHT BREAST, [...] made with a #11 blade. A 9-gauge [facility] vacuum-assisted biopsy needle was advanced [...] tolerated the procedure well, and left the [facility] in good condition, without evidence of immediate complication. us Nathan Fish MD IMG MAMMO PROCEDURES Edite d Result - Final * MRI Guided Breast Biopsy Right (02/28/2024 10:28 AM JAVA SECURITY ARCHITECT) Anatomical Region Laterality Modality Breast Right Magnetic Resonan ce 02/28/2024 11:3 1 AM JAVA SECURITY ARCHITECT Addenda Addendum by Consuelo Almtan MD on 02/29/2024 4:10 PM JAVA SECURITY ARCHITECT Pathology report for MRI guided core needle [...] patient by the nursing staff of the [facility]. Electronically signed by: Consuelo Altman M.D. Impressions 02/28/2024 11:31 AM JAVA SECURITY ARCHITECT Successful MRI guided biopsy of enhancement in the lumpectomy site of the right breast. Pathology report is pending. ASSESSMENT: Post-procedure mammogram for marker placement. Electronically signed by: Consuelo Altman M.D. Narrative 02/28/2024 11:31 AM JAVA SECURITY ARCHITECT MRI GUIDED CORE NEEDLE BIOPSY RIGHT BREAST, [...] made with a #11 blade. A 9-gauge [facility] vacuum-assisted biopsy needle was advanced [...] tolerated the procedure well, and left the [facility] in good condition, without evidence of immediate complication. us Nathan Fish MD IMG MRI PROCEDURES Edited Result - Final * Surgical pathology (02/28/2024 10:01 AM JAVA SECURITY ARCHITECT) Tissue (Breast biopsy, needle core) 02/28/2024 10:01 AM JAVA SECURITY ARCHITECT Narrative PATHOLOGY [facility] - 02/29/2024 12:16 PM JAVA SECURITY ARCHITECT [address] [address] Tele: Jocelin Browne MD - Garage Laborer Note to Patients: This report may contain [...] PATHOLOGY REPORT Patient Name: LATRICE TATE Address: [address] [place] [address] Gender: F : 1990 (Age: 34) Service: Location: , Hospital #: [id number] Patient Type: [facility] ANCILLARY Taken: 02/28/2024 Received 02/28/2024 Reported: 02/29/2024 Physician(s): [facility] - Dr. Altman DIAGNOSIS: Breast, right breast [...] is entirely submitted in cassettes labeled A1-A3. [facility]IC DES[facility]: Microscopic examination supports the above captioned diagnosis. There is no atypical hyperplasia or malignancy. Clerical Data Follows A; [id number] REPORT IMAGES AND/OR SCANNED DOCUMENTS ONLY VIEWABLE IN PDF FORMAT The immunohistochemical test(s) cited in this report, if any, was developed and its performance characteristics determined by [facility] Pathology Department. It has not been cleared or approved by the U.S. Food and Drug Administration. The FDA has determined that such clearance or approval is not necessary. This test is used for clinical purposes. It should not be regarded as investigational or for research. [facility] Laboratory is certified under the Clinical Laboratory [...] part or completely in the following laboratories: [facility], [address], [place] [address] [facility], [address], [place] [address]. Nathan Fish MD LAB PATHOLOGY ORDERABLES F inal Result PATHOLOGY [facility] Laboratory Receiving [address] [place], [place] [id number] * (ABNORMAL) Pap and HPV, reflex to [...] 09/20/2023 2:11 PM CDT Performed at: - [address] [id number] Subject Scientific Research: Yumiko Hubbard MD, Phone: [phone] Performed at: - [address] [id number] Subject Scientific Research: Yumiko Hubbard MD, Phone: [phone] Specimen Comment: Source.............Cervix;Endocervix Specimen Comment: No. of containers..01 ThinPrep Vial Shara Monreal MD LAB CYTOLOGY ORDERABLES F inal Result Performing Organization Address [facility]/ZIP Co de Phone Number [facility] 02 * Hepatitis C antibody (07/11/2022 1:00 PM CDT) Hep C Ab Nonreactive Nonreactive [facility] Comment: Interpretive Data Nonreactive: Antibodies to HCV [...] GENERA L ORDERABLES Edited Result - Final [facility] [address] [place] [address] from Last 3 Months or Most Recently Relevant to Health Maintenance Insurance [facility] [id number] [place], [place] [address] Care Teams Security Guards Dispatcher Relationship Specialty Start Date End Date Petey York MD [address] [place], [place] [phone] PCP - General Family Medicine 03/01/22 Teofilo Triplett MD [address] [place] [address] Medical Oncologist/Batterboard Setter Hematology and Oncology 07/22/21 Arian Eaton MD [address] [place] [address] Consulting Physician Radiation Oncology 07/22/21 Nathan Fish MD [address] [place] [address] Consulting Physician Surgical Oncology 07/28/21 Shara Monreal MD [address] [place], [place] [phone] Consulting Physician Obstetrics and Gynecology 07/28/21 Malorie Malcolm, LANEY [address] [place] [address] Nurse Practitioner Surgery 12/22/21
--- OUTSIDE RECORDS SUMMARY | 2024-05-24 00:45 | XMS_ITS | Encounter Summary ---
Author Organization [facility] Address [address] [place] [address] Care Team Providers Care Senior Mobile Solutions Architect Name Role Phone Petey York MD Primary Care Provider [phone] Encounter Details Date Type Department Care Team (Late st Contact Info) Description 10/13/2023 Cartavi Message Enc [facility] Family & Internal Medicine [facility] [id number] [place] [phone] [place] [address] [place] [address] Antibiotics/yeast Social History Tobacco Use Types Packs/Day Years Used Date Smoking Tobacco: Never Passive Smoke Exposure: Never Smokeless Tobacco: Never Comments:na Alcohol Use Standard Drinks/Week Comments No [...] on filedocumented in this encounter Care Teams Senior Mobile Solutions Architect Relationship Specialty Start Date End Date Petey York MD [address] [place] [address] PCP - General FAMILY PRACTICE 01/17/23 documented as of this encounter
--- OUTSIDE RECORDS SUMMARY | 2024-05-24 00:45 | XMS_ITS | Patient Health Summary ---
Author Organization [facility] Address [address] [place] [address] Care Team Providers Care Field Installation Technician Name Role Phone Ryan Metz MD Primary Care Provider [phone] Note from [facility] [place],non-owned Affiliates and Associated Physician Practices is amultiple site organization consisting of ambulatory clinics and hospital sitesin [place], [place], [place] and [place]. This disclosure is being madepursuant to the Care Everywhere program and may not contain all information available regarding this patient. Last updated 17.[facility] Allergies * Doxycycline(Nausea and/or Vomiting) Medications [...] AM CDT) Case Report Dermatopathology Report Case: [id number] Authorizing Provider: Fina Cueto MD Collected: 12/14/2023 12:00 AM Ordering Location: [facility] - Received: 12/18/2023 08:49 AM DermPath Lab Pathologist: Desi Doan MD Specimen: Skin, under right breast 3:57 PM CDT DERMATOPATHOLOGY LABORATORY Final Diagnosis Specimen A. SKIN, under right breast: VASCULAR PROLIFERATION, SUPERFICIAL PORTIONS OF (D48.5) (see microscopic description and comment) 3:57 PM [facility] DERMATOPATHOLOGY LABORATORY Clinical History Cyst vs dermatofibroma, r/o other 3:57 PM [facility] DERMATOPATHOLOGY LABORATORY Gross Description Specimen A: Received is one formalin filled container labeled with the patient's name and designated under right breast. The specimen consists of a 3x3x4 mm piece of skin. The specimen is serially sectioned and a applications sales representative section is submitted in cassette 1. Jar 1. 3:57 PM [facility] DERMATOPATHOLOGY LABORATORY Microscopic Description Specimen A. SKIN, [...] Dr. Dai Fenton, who agrees. 3:57 PM [facility] DERMATOPATHOLOGY LABORATORY Disclaimer An external and internal positive and negative controls are appropriate for the histochemical, immunohistochemical and immunofluorescence stain(s) in this case (if any), except where stated explicitly. The performance characteristics of the stain(s) cited in this report were developed and its performance characteristic determined by the Dermatopathology Laboratory at [facility], directed by Dr. Tigre Fenton. These tests need not be, and therefore are not, approved by the [place] Food and Drug Administration. The tests are used for clinical purposes. Billing Codes Specimen Charges Stain Charges 11964 1 63768 43265 [id number] 86082 06079 09204 1 1 1 1 1 1 4 3:57 PM CDT DERMATOPATHOLOGY LABORATORY Embedded Images 4 3:57 PM CDT DERMATOPATHOLOGY LABORATORY Pathology/Cytolog y TISSUE SPECIMEN FROM SKIN / Unknown 12/14/2023 12/18/2023 8:49 AM CDT Fina Cueto MD LAB - PATHOLOGY/CYTO LOGY ORDERABLES DERMATOPATHOLOGY LABORATORY [facility] - Department of Dermatology [address], [address] [phone] * US KIDNEY WITH DOPPLER (12/14/2017 9:02 AM CDT) Anatomical Region Laterality Modality Ultrasound 12/14/2017 9:17 AM CDT Impressions 12/14/2017 12:48 PM CDT IMPRESSION: 1. No ultrasonographic evidence of pyelonephritis. 2. Patent renal vasculature. Dictated by Subha Marquez MD (sales consultant residential manager). This report was approved by Subha Marquez [...] renal vasculature. Dictated by Subha Marquez MD (sales consultant residential manager). This report was approved by Subha Marquez on 12/14/2017 10:01 AM . I, Dr. KAROL ALLRED M.D. have personally reviewed and interpretedthis examination/study. This report was electronically signed by KAROL ALLRED M.D. on 12/14/2017 12:48 PM . Roderick Cintron MD US ORDERABLES * (ABNORMAL) CBC W/O DIFFERENTIAL (12/14/2017 3:27 AM CDT) WBC 7.5 3.5 - 10.5 10 3/uL 12/14/2017 3:49 AM CDT [facility] RBC 3.69(L) 3.90 - 5.00 10 6/uL 12/14/2017 3:49 AM [facility] Hemoglobin 10.9(L) 12.0 - 15.5 g/dL 12/14/2017 3:49 AM [facility] Hematocrit 32.0(L) 35.0 - 45.0 % 12/14/2017 3:49 AM [facility] MCV 86.7 81.0 - 97.0 fL 12/14/2017 3:49 AM [facility] MCH 29.5 28.0 - 34.0 pg 12/14/2017 3:49 AM [facility] MCHC 34.1 32.0 - 36.0 g/dL 12/14/2017 3:49 AM [facility] Platelet Count 226 150 - 400 10 3/uL 12/14/2017 3:49 AM [facility] RDW-SD 39.7 36.0 - 50.0 fL 12/14/2017 3:49 AM [facility] RDW-CV 12.4 11.2 - 14.8 % 12/14/2017 3:49 AM [facility] MPV 9.6 9.3 - 12.8 fL 12/14/2017 3:49 AM [facility] Blood BLOOD SPECIMEN / Unknown Lab Venipuncture / Unknown 12/14/2017 3:27 AM CDT 12/14/2017 3:45 AM T Roderick Cintron MD LAB - HEMATOLOGY ORD ERABLES [facility] [address] [phone] * (ABNORMAL) BASIC METABOLIC PANEL (CALCIUM TOTAL) (12/14/2017 3:27 AM CDT) BUN 14 7 - 26 mg/dL 12/14/2017 4:09 AM [facility] Creatinine 1.3(H) 0.6 - 1.2 mg/dL 12/14/2017 4:09 AM [facility] Sodium 140 136 - 145 mmol/L 12/14/2017 4:09 AM [facility] Potassium 3.8 3.5 - 4.5 mmol/L 12/14/2017 4:09 AM [facility] Chloride 110(H) 98 - 107 mmol/L 12/14/2017 4:09 AM [facility] CO2 22 22 - 29 mmol/L 12/14/2017 4:09 AM [facility] Glucose 101 70 - 115 mg/dL 12/14/2017 4:09 AM [facility] Calcium 8.7 8.4 - 10.2 mg/dL 12/14/2017 4:09 AM [facility] Anion Gap 12 8 - 18 12/14/2017 4:09 AM [facility] BUN/Creatinine Ratio 11 7 - 23 12/14/2017 4:09 AM [facility] Osmolality Calculated 291 270 - 300 mOsm/kg 12/14/2017 4:09 AM [facility] eGFR 50(L) >60 mL/min/1.7 3 m2 12/14/2017 4:09 AM [facility] Blood BLOOD SPECIMEN / Unknown Lab Venipuncture / Unknown 12/14/2017 3:27 AM CDT 12/14/2017 3:44 AM CDT Roderick Cintron MD LAB - CHEMISTRY [place] [facility]PT[facility] [address] [phone] * HCG URINE QUALITATIVE (12/13/2017 8:38 PM CDT) Test Urine Negative Negative 12/13/2017 8:44 PM T [facility] Urine URINE / Unknown Collection / Unknown 12/13/2017 8:38 PM CDT 12/13/2017 8:38 PM CDT Yady Esquivel DO LAB - URINALY SIS ORDERABLES Performing Organization Address City/[facility]/ZIP Co de Phone Number [address] [phone] * SODIUM URINE RANDOM (12/13/2017 8:37 PM CDT) Sodium Urine 120 Not Established mmol/L 12/13/2017 9:09 PM CDT [facility] Urine URINE SPECIMEN OBTAINED BY CLEAN CATCH PROCEDURE / Unknown Collection / Unknown 12/13/2017 8:37 PM CDT 12/13/2017 8:37 PM CDT Roderikc Cintron MD LAB - URINE CHEMISTR Y ORDERABLES [address] [phone] * UREA NITROGEN URINE RANDOM (12/13/2017 8:37 PM CDT) Urea Nitrogen Random Urine 202 Not Established mg/dL 12/13/2017 9:09 PM CDT [facility] Urine URINE SPECIMEN OBTAINED BY CLEAN CATCH PROCEDURE / Unknown Collection / Unknown 12/13/2017 8:37 PM CDT 12/13/2017 8:37 PM CDT Roderick Cintron MD LAB - URINE CHEMISTR Y ORDERABLES Performing Organization Address City/[facility]/ZIP Co de Phone Number [address] [phone] * POTASSIUM URINE RANDOM (12/13/2017 8:37 PM CDT) Potassium Urine 10 Not Established mmol/L 12/13/2017 9:09 PM CDT [facility] Urine URINE SPECIMEN OBTAINED BY CLEAN CATCH PROCEDURE / Unknown Collection / Unknown 12/13/2017 8:37 PM CDT 12/13/2017 8:37 PM CDT Roderick Cintron MD LAB - URINE CHEMISTR Y ORDERABLES Performing Organization Address [facility]/ZIP Co de Phone Number [address] [phone] * OSMOLALITY URINE (12/13/2017 8:37 PM CDT) Osmolality Urine 342 50 - 1,200 mOsm/kg 12/13/2017 9:01 PM CDT [facility] Urine URINE SPECIMEN OBTAINED BY CLEAN CATCH PROCEDURE / Unknown Collection / Unknown 12/13/2017 8:37 PM CDT 12/13/2017 8:37 PM CDT Roderick Cintron MD LAB - URINE CHEMISTR Y ORDERABLES Performing Organization Address City/[facility]/ZIP Co de Phone Number [address] [phone] * CREATININE URINE RANDOM (12/13/2017 8:37 PM CDT) Creatinine Urine 40 Not Established mg/dL 12/13/2017 9:21 PM T [facility] Urine URINE SPECIMEN OBTAINED BY CLEAN CATCH PROCEDURE / Unknown Collection / Unknown 12/13/2017 8:37 PM CDT 12/13/2017 8:37 PM CDT Roderick Cintron MD LAB - URINE CHEMISTR Y ORDERABLES Performing Organization Address City/[facility]/ZIP Co de Phone Number [address] [phone] * (ABNORMAL) CBC W AUTO DIFFERENTIAL (12/13/2017 7:17 PM CDT) WBC 6.9 3.5 - 10.5 10 3/uL 12/13/2017 7:50 PM [facility] RBC 3.77(L) 3.90 - 5.00 10 6/uL 12/13/2017 7:50 PM [facility] Hemoglobin 11.1(L) 12.0 - 15.5 g/dL 12/13/2017 7:50 PM [facility] Hematocrit 33.4(L) 35.0 - 45.0 % 12/13/2017 7:50 PM [facility] MCV 88.6 81.0 - 97.0 fL 12/13/2017 7:50 PM [facility] MCH 29.4 28.0 - 34.0 pg 12/13/2017 7:50 PM [facility] MCHC 33.2 32.0 - 36.0 g/dL 12/13/2017 7:50 PM [facility] Platelet Count 223 150 - 400 10 3/uL 12/13/2017 7:50 PM [facility] RDW-SD 40.8 36.0 - 50.0 fL 12/13/2017 7:50 PM [facility] RDW-CV 12.7 11.2 - 14.8 % 12/13/2017 7:50 PM [facility] MPV 9.8 9.3 - 12.8 fL 12/13/2017 7:50 PM [facility] Neutrophils % 61.6 35.0 - 70.0 % 12/13/2017 7:50 PM [facility] Lymphocytes % 29.8 19.7 - 55.1 % 12/13/2017 7:50 PM [facility] Monocytes % 6.4 3.0 - 15.0 % 12/13/2017 7:50 PM [facility] Eosinophils % 1.9 0.0 - 6.0 % 12/13/2017 7:50 PM [facility] Basophil % 0.3 0.0 - 1.5 % 12/13/2017 7:50 PM [facility] Neutrophils Absolute 4.3 1.6 - 7.0 10 3/uL 12/13/2017 7:50 PM [facility] Lymphocyte Absolute 2.1 0.8 - 2.9 10 3/uL 12/13/2017 7:50 PM [facility] Monocytes Absolute 0.44 0.14 - 0.66 10 3/uL 12/13/2017 7:50 PM [facility] Eosinophils Absolute 0.13 0.00 - 0.22 10 3/uL 12/13/2017 7:50 PM [facility] Basophils Absolute 0.02 0.00 - 0.06 10 3/uL 12/13/2017 7:50 PM [facility] Immature Granulocytes % 0.1 0.0 - 1.0 % 12/13/2017 7:50 PM [facility] Blood BLOOD SPECIMEN / Unknown Lab Venipuncture / Unknown 12/13/2017 7:17 PM CDT 12/13/2017 7:45 PM CDT Roderick Cintron MD LAB - HEMATOLOGY ORD ERABLES [facility] [address] [phone] * (ABNORMAL) COMPREHENSIVE METABOLIC PANEL (12/13/2017 7:17 PM CDT) BUN 15 7 - 26 mg/dL 12/13/2017 8:07 PM [facility] Creatinine 1.6(H) 0.6 - 1.2 mg/dL 12/13/2017 8:07 PM [facility] Sodium 141 136 - 145 mmol/L 12/13/2017 8:07 PM [facility] Potassium 3.4(L) 3.5 - 4.5 mmol/L 12/13/2017 8:07 PM [facility] Chloride 110(H) 98 - 107 mmol/L 12/13/2017 8:07 PM [facility] CO2 20(L) 22 - 29 mmol/L 12/13/2017 8:07 PM [facility] Glucose 105 70 - 115 mg/dL 12/13/2017 8:07 PM [facility] Calcium 9.1 8.4 - 10.2 mg/dL 12/13/2017 8:07 PM [facility] Protein Total 6.4 6.0 - 8.3 g/dL 12/13/2017 8:07 PM [facility] Albumin 2.8(L) 3.4 - 5.0 g/dL 12/13/2017 8:07 PM [facility] Bilirubin Total 0.3 0.2 - 1.2 mg/dL 12/13/2017 8:07 PM [facility] Alkaline Phosphatase 47 40 - 150 Units/L 12/13/2017 8:07 PM [facility] ALT 7 0 - 55 Units/L 12/13/2017 8:07 PM [facility] AST 11 5 - 34 Units/L 12/13/2017 8:07 PM [facility] Anion Gap 14 8 - 18 12/13/2017 8:07 PM [facility] BUN/Creatinine Ratio 9 7 - 23 12/13/2017 8:07 PM CDT [facility] Osmolality Calculated 293 270 - 300 mOsm/kg 12/13/2017 8:07 PM CDT [facility] Albumin/Globulin Ratio 0.8(L) 1.1 - 2.3 12/13/2017 8:07 PM CDT [facility] eGFR 39(L) >60 mL/min/1.7 3 m2 12/13/2017 8:07 PM CDT [facility] Blood BLOOD SPECIMEN / Unknown Lab Venipuncture / Unknown 12/13/2017 7:17 PM CDT 12/13/2017 7:45 PM CDT Roderick Cintron MD LAB - CHEMISTRY [place] [facility]PT[facility] [address] [phone] * PHOSPHORUS BLOOD (12/13/2017 7:17 PM CDT) Phosphorus 3.5 2.3 - 4.7 mg/dL 12/13/2017 8:05 PM CDT [facility] Blood BLOOD SPECIMEN / Unknown Lab Venipuncture / Unknown 12/13/2017 7:17 PM CDT 12/13/2017 7:45 PM CDT Roderick Cintron MD LAB - CHEMISTRY [place] [facility]PTA Performing Organization Address City/[facility]/ZIP Co de Phone Number [address] [phone] * MAGNESIUM BLOOD (12/13/2017 7:17 PM CDT) Magnesium 1.8 1.6 - 2.6 mg/dL 12/13/2017 8:07 PM CDT [facility] Blood BLOOD SPECIMEN / Unknown Lab Venipuncture / Unknown 12/13/2017 7:17 PM CDT 12/13/2017 7:45 PM CDT Roderick Cintron MD LAB - [place] [address], [facility] [phone] * LACTIC ACID BLOOD (12/13/2017 7:17 PM CDT) [facility] Lactic Acid-Stat 1.5 0.5 - 2.2 mmol/L 12/13/2017 8:03 PM CDT [facility] Blood BLOOD SPECIMEN / Unknown Lab Venipuncture / Unknown 12/13/2017 7:17 PM CDT 12/13/2017 7:45 PM CDT Roderick Cintron MD LAB - [place] [address], [facility] [phone] * CK BLOOD (12/13/2017 7:17 PM CDT) [facility] CK Total 52 30 - 200 Units/L 12/13/2017 8:07 PM CDT [facility] Blood BLOOD SPECIMEN / Unknown Lab Venipuncture / Unknown 12/13/2017 7:17 PM CDT 12/13/2017 7:45 PM CDT Roderick Cintron MD LAB - [place] [address], [facility] [phone] * CULTURE BLOOD (12/13/2017 7:16 PM CDT) [facility] Culture No growth day 5 [place] 12/18/2017 11:31 PM CDT [facility] [employer] MICROBIOLOGY Blood PERIPHERAL BLOOD / Unknown Lab Venipuncture / Unknown 12/13/2017 7:16 PM CDT 12/13/2017 7:45 PM CDT Roderick Cintron MD LAB - MICROBIOLOGY O RDERABLES [facility] MICROBIOLOGY [address] [place] [address], [facility] [phone] * (ABNORMAL) URINALYSIS W/MICROSCOPIC NO CULTURE (12/13/2017 6:24 PM [facility]) Color UA Yellow Straw, Yellow, Colorless, Light Yellow 12/13/2017 6:33 PM [facility] Clarity UA Clear Clear 12/13/2017 6:33 PM [facility] Specific [place] UA 1.006 1.001 - 1.030 12/13/2017 6:33 PM [facility] pH UA 5.5 5.0 - 8.0 12/13/2017 6:33 PM [facility] Protein UA Negative <=20 mg/dL 12/13/2017 6:33 PM [facility] Glucose UA Negative Negative mg/dL 12/13/2017 6:33 PM [facility] Ketone UA Negative Negative mg/dL 12/13/2017 6:33 PM [facility] Bilirubin UA Negative Negative mg/dL 12/13/2017 6:33 PM [facility] Blood UA Moderate(A) Negative 12/13/2017 6:33 PM [facility] Nitrite UA Negative Negative 12/13/2017 6:33 PM [facility] Leukocyte Esterase Negative Negative 12/13/2017 6:33 PM [facility] Urobilinogen UA <2.0 <2.0 mg/dL 8 6:33 PM [facility] RBC UA 2 0 - 8 /HPF 12/13/2017 6:33 PM [facility] WBC UA 1 0 - 2 /HPF 12/13/2017 6:33 PM [facility] Bacteria UA Rare Rare, Occasional, None /HPF 12/13/2017 6:33 PM [facility] Squamous Epithelial Cells UA <1 0 - 1 /HPF 12/13/2017 6:33 PM [facility] Mucus UA Rare(A) None /LPF 12/13/2017 6:33 PM [facility] Urine URINE SPECIMEN OBTAINED BY CLEAN CATCH PROCEDURE / Unknown Collection / Unknown 12/13/2017 6:24 PM CDT 12/13/2017 6:28 PM T Roderick Cintron MD LAB - URINALYSIS ORD ERABLES [facility] [address] [place] [address], [facility] [phone] * CULTURE URINE (12/13/2017 6:24 PM CDT) Culture Urine No growth (<100 CFU/mL) [place] 12/15/2017 6:23 AM CDT [facility] MICROBIOLOG[facility] Urine URINE SPECIMEN OBTAINED BY CLEAN CATCH PROCEDURE / Unknown Collection / Unknown 12/13/2017 6:24 PM CDT 12/13/2017 6:28 PM CDT Roderick Cintron MD LAB - MICROBIOLOGY O RDERABLES Performing Organization Address City/[facility]/ZIP Co de Phone Number [facility]CROBI[facility] [address] [place], [place] [address], [facility] [phone] Care Teams Field Installation Technician Relationship Specialty Start Date End Date Ryan Metz MD [address] [place] [id number] PCP - General 05/15/17
--- OUTSIDE RECORDS SUMMARY | 2024-05-24 00:45 | XMS_ITS ---
Author Organization [facility] Address [address] [place] [address] Care Team Providers Care Retail Key Holder Name Role Phone Chela PRAJAPATI, Dr Angelo Primary Care Provider Nita Naqvi Unavailable [phone] REASON FOR VISIT SCIT - Traditional Schedule Allergy Immunotherapy Encounters Encounter Location Date Provider Diagnosis [address] [address] 05/06/2024 Nita Conrad Allergic rhinitis du e [...] Provider Name:Nita felton, 05/30/2024 05:00:00 PM, [address] [place], [address], Provider Name:Nita felton, 06/12/2024 05:00:00 PM, [address] [place], [address], Provider Name:Nita felton, 06/25/2024 05:00:00 PM, [place], [address], Progress Notes * Latrice BRAYDOB:1990 (34 yo F)Acc No.[id number]:05/06/2024 SCIT-Aeroallergen Patient: Latrice ROMERO Provider: James Conrad MD :1990 A ge:34 Y S ex:Female Date:05/06/2024 Address:[address] [place], [place] [id number] Pcp:Dr Petey York MD Subjective: * Chief [...] Information: * Visit Code: * Procedure Codes: 61886 IMMUNOTHERAPY INJECTIONS. * Electronic signature of An Conrad MD on 05/24/2024 at 12:45 AM CDT Sign off status: Pending * Provider: James Conrad MD Date: 0 05/06/2024 Generated for Ortiz randall/Nina/Denisse on: 0 05/24/2024 12:45 AM CDT History and Physical [...]
--- OUTSIDE RECORDS SUMMARY | 2024-05-24 00:45 | XMS_ITS | Referral Summary ---
Author Organization [facility] Address [address] [place] [id number] Care Team Providers Care Ground Crew Lines Person Name Role Phone Uziel Teofilo Jones MD Unavailable [phone] Arian Eaton MD Unavailable [phone] Nathan Fish MD Unavailable [phone] Shara Monreal MD Unavailable Malorie Malcolm NP Unavailable Petey York MD Primary Care Provider [phone] Encounters Date Type Department Care Team Description 05/06/2024 Orders Only [facility] [address] [place] [phone] Nathan Fish MD Invasive ductal carcinoma of breast, female, right (HCC) (Primary Dx); Malignant 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, estrogen receptor negative (HCC) 05/06/2024 Documentation [facility] [address] [place] [phone] Inessa Heart RC 05/06/2024 2:00 PM CASEWORKER INTAKE Office Visit [facility] Radiation Oncology [address] [place] [phone] Arian Eaton MD Malignant 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, estrogen receptor negative (HCC) (Primary Dx) 05/06/2024 2:45 PM CASEWORKER INTAKE Office Visit [facility] [address] [place] [address] [address] [place] [phone] Nathan Fish MD Malignant 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, estrogen receptor negative (HCC) (Primary Dx) 02/29/2024 Telephone [facility] - Imaging [address] [place] [address] Jocelin Jones RN Follow-Up Call 24-48 Hours; Test Results 02/28/2024 10:30 AM CASEWORKER INTAKE - 02/28/2024 11:59 PM CASEWORKER INTAKE Hospital Encounter [facility] [address] [place] [address] Abnormal MRI, breast Discharge Disposition: Discharge to home or self care 02/28/2024 7:24 AM CASEWORKER INTAKE - 02/28/2024 11:59 PM CASEWORKER INTAKE Hospital Encounter [facility] [address] [place] [address] Abnormal MRI, breast Discharge Disposition: [...] tablet TAKE 1 TABLET(75 MCG) BY MOUTH TUMBLER MACHINE OPERATOR BEFORE BREAKFAST 90 tablet 1 11/03/19 24 [...] (07/30/2021): Added automatically from request for surgery [id number] Malignant neoplasm 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, estrogen receptor negative 07/23/2021 Cancer Staging:Clinical stage from 07/20/2021:Stage IB(cT1c, cN0, cM0, G3, ER-, MO-, HER2-) - Signed by Arian Eaton MD on 07/30/2021 Pathologic stage from 02/10/2022:No Stage Recommended(ypT0, pN0(sn), cM0, GX, ER- , MO-, HER2-) - Signed by Arian Eaton MD on 03/09/2022 Endometriosis 10/22/2019 Overview (10/22/2019): Added automatically from request for surgery [id number] Pelvic and perineal pain 10/22/2019 Overview (10/22/2019): Added automatically from request for surgery [id number] Persistent proteinuria 10/25/2018 Recurrent UTI 10/25/2018 Asymptomatic [...] on file Legal Sex Female 12:06 AM CASEWORKER INTAKE Gender Identity Not on file Sexual Orientation Not on file Occupation Industry Job Start Date Job End Date [employer] Not on file Not on file Not on file Last Filed Vital Signs Vital Sign Reading Time Taken Comments Blood Pressure 126/82 05/06/2024 1:56 PM CASEWORKER INTAKE Pulse 98 05/06/2024 1:56 PM CASEWORKER INTAKE Temperature 36.1 C (97 F) 05/06/2024 2:30 PM CASEWORKER INTAKE Respiratory Rate 18 05/06/2024 1:56 PM CASEWORKER INTAKE Oxygen Saturation 100% 05/06/2024 1:56 PM CASEWORKER INTAKE Inhaled Oxygen Concentration - - Weight 95.7 kg (211 lb) 05/06/2024 2:30 PM CASEWORKER INTAKE Height 162.6 cm (5' 4 ) 05/06/2024 2:30 PM CASEWORKER INTAKE Body Mass Index 36.22 05/06/2024 2:30 PM CASEWORKER INTAKE Plan of Treatment Not on file Medical Devices Implanted Type Area Diagrammer And Seamer Device Identifier Shelf Expiration Date Model / Serial / Lot MyDentist Magseed 18ga 7cm Marker Breast Biopsy [id number] Right: Breast [employer] [id number] 12/10/2025 [id number] / / [id number] [employer] Trimark Second Marker Breast Biopsy Disposable Trimark Td 2s 13-Mr - [id number] Implanted:Qty: 1 on 02/28/2024 by Consuelo Altman MD at [facility] Right: Breast [employer] [id number] 06/13/2025 TRIMARK TD 2S 13-MR / / [id number] Explanted Type Area Diagrammer And Seamer Device Identifier Shelf Expiration Date Model / Serial / Lot [employer] Powerport Isp Mri Airguard 8fr 1 Lumen Attachable Catheter Open Latex Free [id number] - [id number] Implanted:Qty: 1 on 08/06/2021 by Koffi Brandon MD at [facility] Explanted:Qty: 1 Right: Chest [employer] 09/09/2022 [id number] / / [id number] Procedures Procedure Name Priority Date/Time Associated Diagnosis Comments MAMM POST CLIP PLACEMENT RIGHT Schedule Routine, Read Routine (OP Routine) 02/28/2024 10:50 AM CASEWORKER INTAKE Abnormal MRI, breast MRI GUIDED BREAST BIOPSY RIGHT Schedule Routine, Read Routine (OP Routine) 02/28/2024 10:28 AM CASEWORKER INTAKE Abnormal MRI, breast SURGICAL PATHOLOGY Routine 02/28/2024 10:01 AM CASEWORKER INTAKE Abnormal MRI, breast PAP AND HPV, REFLEX TO HPV GENOTYPES Routine 09/18/2023 4:32 AM CDT Screening for cervical cancer Screening for human papillomavirus (HPV) HEPATITIS C ANTIBODY Routine 07/11/2022 1:00 PM CDT from Last 3 Months or Most Recently Relevant to Health Maintenance Results * Mammo Post Clip Placement Right (02/28/2024 10:50 AM CASEWORKER INTAKE) Anatomical Region Laterality Modality Breast Right Mammography 02/28/2024 11:3 1 AM CASEWORKER INTAKE Addenda Addendum by Consuelo Altman MD on 02/29/2024 4:10 PM CASEWORKER INTAKE Pathology report for MRI guided core needle [...] patient by the nursing staff of the [facility]. Electronically signed by: Consuelo Altman M.D. Impressions 02/28/2024 11:31 AM CASEWORKER INTAKE Successful MRI guided biopsy of enhancement in the lumpectomy site of the right breast. Pathology report is pending. ASSESSMENT: Post-procedure mammogram for marker placement. Electronically signed by: Consuelo Altman M.D. Narrative 02/28/2024 11:31 AM CASEWORKER INTAKE MRI GUIDED CORE NEEDLE BIOPSY RIGHT BREAST, [...] made with a #11 blade. A 9-gauge [facility] vacuum-assisted biopsy needle was advanced to the [...] tolerated the procedure well, and left the [facility] in good condition, without evidence of immediate complication. us Nathan Fish MD IMG MAMMO PROCEDURES Edite d Result - Final * MRI Guided Breast Biopsy Right (02/28/2024 10:28 AM CASEWORKER INTAKE) Anatomical Region Laterality Modality Breast Right Magnetic Resonan ce 02/28/2024 11:3 1 AM CASEWORKER INTAKE Addenda Addendum by Consuelo Altman MD on 02/29/2024 4:10 PM CASEWORKER INTAKE Pathology report for MRI guided core needle [...] patient by the nursing staff of the [facility]. Electronically signed by: Consuelo Altman M.D. Impressions 02/28/2024 11:31 AM CASEWORKER INTAKE Successful MRI guided biopsy of enhancement in the lumpectomy site of the right breast. Pathology report is pending. ASSESSMENT: Post-procedure mammogram for marker placement. Electronically signed by: Consuelo Altman M.D. Narrative 02/28/2024 11:31 AM CASEWORKER INTAKE MRI GUIDED CORE NEEDLE BIOPSY RIGHT BREAST, [...] made with a #11 blade. A 9-gauge [facility] vacuum-assisted biopsy needle was advanced to the [...] tolerated the procedure well, and left the [facility] in good condition, without evidence of immediate complication. us Nathan Fish MD [facility] MRI PROCEDURES Edited Result - Final * Surgical pathology (02/28/2024 10:01 AM CASEWORKER INTAKE) Tissue (Breast biopsy, needle core) 02/28/2024 10:01 AM CASEWORKER INTAKE Narrative PATHOLOGY [facility] - 02/29/2024 12:16 PM CASEWORKER INTAKE [address] [address] Tele: Jocelin Browne MD - Rod Welder Note to Patients: This report may contain [...] PATHOLOGY REPORT Patient Name: LATRICE TATE Address: [address] [place] [address] Gender: F : 1990 (Age: 34) Service: Location: , Hospital #: [id number] Patient Type: [facility] ANCILLARY Taken: 02/28/2024 Received 02/28/2024 Reported: 02/29/2024 Physician(s): [facility] - Dr. Altman DIAGNOSIS: Breast, right breast abnormal enhancement, needle biopsy: - Hyalinized fibroadenoma - Focal fat necrosis [facility] no. 5/02/29/2024 12:16 Examining Pathologist: Mildred Gonzales M.D. Report [...] is entirely submitted in cassettes labeled A1-A3. [facility] MICROSCOPIC DESCRIPTION: Microscopic examination supports the above captioned diagnosis. There is no atypical hyperplasia or malignancy. Clerical Data Follows A; [id number] REPORT IMAGES AND/OR SCANNED DOCUMENTS ONLY VIEWABLE IN PDF FORMAT The immunohistochemical test(s) cited in this report, if any, was developed and its performance characteristics determined by [facility] Pathology Department. It has not been cleared or approved by the U.S. Food and Drug Administration. The FDA has determined that such clearance or approval is not necessary. This test is used for clinical purposes. It should not be regarded as investigational or for research. [facility] Laboratory is certified under the Clinical Laboratory [...] part or completely in the following laboratories: [facility], [address], [place] [address] [facility], [address], [place] [address]. us Nathan Fish MD LAB PATHOLOGY ORDERABLES F inal Result PATHOLOGY [facility] Laboratory Receiving [address] [place], [place] [id number] * (ABNORMAL) Pap and HPV, reflex to [...] 09/20/2023 2:11 PM CDT Performed at: - [address] [id number] Director Medical Economics: Yumiko Hubbard MD, Phone: [phone] Performed at: 02 - [address] [id number] Director Medical Economics: Yumiko Hubbard MD, Phone: [phone] Specimen Comment: Source.............Cervix;Endocervix Specimen Comment: No. of containers..01 ThinPrep Vial Shara Monreal MD LAB CYTOLOGY ORDERABLES F inal Result Performing Organization Address City/[facility]/ZIP Co de Phone Number [facility] - 01 LAB PEÑA 02 * Hepatitis C antibody (07/11/2022 1:00 PM CDT) Hep C Ab Nonreactive Nonreactive [facility] Comment: Interpretive Data Nonreactive: Antibodies to HCV [...] GENERA L ORDERABLES Edited Result - Final [facility] [address] Department [place] [address] from Last 3 Months or Most Recently Relevant to Health Maintenance Insurance HMO HMO O Care Teams Ground Crew Lines Person Relationship Specialty Start Date End Date Petey York MD [address] [place] [address] PCP - General Family Medicine 03/01/22 Teofilo Triplett MD [address] [place] [address] Medical Oncologist/Race Steward Hematology and Oncology 07/22/21 Arian Eaton MD [address] DEPT [place] [address] Consulting Physician Radiation Oncology 07/22/21 Nathan Fish MD [address] [facility] [address] [place] [address] Consulting Physician Surgical Oncology 07/28/21 Shara Monreal MD [address] [place] [address] Consulting Physician Obstetrics and Gynecology 07/28/21 Malorie Malcolm NP [address] [place] [address] Nurse Practitioner Surgery 12/22/21
--- OUTSIDE RECORDS SUMMARY | 2024-05-24 00:45 | XMS_ITS | Encounter Summary ---
Author Organization [facility] Address [address] [facility] [place] [address] Care Team Providers Care Medical Clerk Name Role Phone Ryan Metz MD Primary Care Provider [phone] Encounter Details Date Type Department Care Team (Late st Contact Info) Description 12/28/2023 Lab Requisition [facility] - Pathology Lab [address] [place] [address] Enrrique Gandara MD [address] [facility] [address] [place] [address] Illness, unspecified Social History Tobacco Use [...] unspecified documented in this encounter Care Teams Medical Clerk Relationship Specialty Start Date End Date Ryan Metz MD [address] [place] [address] PCP - General 05/15/17 documented as of this encounter
--- OUTSIDE RECORDS SUMMARY | 2024-05-24 00:45 | XMS_ITS | Continuity of Care Document ---
Author Organization [facility] Address [address] [place] [address] [address] [place] [address] Phone Care Team Providers Care Residue Furnace Operator Name Role Phone Donald JAE Marla Unavailable [...] Date Provider Providers Copied on Encounter [facility] [address], [place], [place], [id number], [place] tel:[phone] [facility] No Information Donald Gutiérrez. . Referring Provider: Delfino Cesar [address], [place], [address]. tel:[phone] [place] [address], [address] [place], [place] [address], [place], [place], [id number], tel:[phone] [facility] No Information Donald Gutiérrez. . Referring Provider: Delfino Cesar Laura [address], [place], [address]. tel:[phone] [place] [address] [place], [place] [address], [place], [place], [id number], tel:[phone] [facility] No Information Arleth Barker. . Referring Provider: Delfino Cesar Brig[facility]Kaylene [facility] [address], [place], [address]. tel:[phone] [place] [address] [place], [place] [address], [place], [place], [id number], tel:[phone] [facility] No Information Arleth Barker. . Referring Provider: Delfino Cesar BrigetteKaylene [address], [place], [address]. tel:[phone] [place] [address] [place], [place] [address], [place], [place], [address], tel:[phone] [facility] No Information Arlethdoreen Barker. . Referring Provider: Delfino Cesar BrigetteKaylene [address], [place], [address]. tel:[phone] [facility] [address] [place], [place] [address], [place], [place], [address], tel:[phone] [facility] No Information Arleth Barker. . Referring Provider: Delfino Cesar BrigetteKaylene [address], [place], [address]. tel:[phone] [facility], [place], [place], [address], [place] tel:[phone] [facility] No Information Arleth Mj. . Referring Provider: Delfino Cesar BrigetteKaylene [address], [place], [address]. tel:[phone] [place] [address] [address], [place], [place], [address], [place] tel:[phone] [facility] No Information Arleth Mj. . Referring Provider: Laura Albright [address], [place], [address]. tel:[phone] [place], [place] [id number] [address], [place], [place], [address], tel:[phone] [facility] No Information Arleth Mj. . Referring Provider: Laura Albright [address], [place], [address]. tel:[phone] [place], [place] [id number] [address], [place], [place], [address], tel:[phone] [facility] No Information Arleth Mj. . Referring Provider: Laura Albright [address], [place], [address]. tel:[phone] [facility], [place], [place], [address], [place] tel:[phone] [facility] No Information Arleth Mj. . Referring Provider: Delfino Cesar BrigetteKaylene [address], [place], [address]. tel:[phone] [facility], [place], [place], [address], [place] tel:[phone] [facility] No Information Arleth Barker. . Referring Provider: Delfino Cesar, Laura [address], [place], [address]. tel:[phone] [place], [place] [id number] [address], [place], [place], [id number], tel:[phone] [facility] No Information Arleth Barker. . Referring Provider: Delfino Cesar [address], [place], [address]. tel:[phone] [place] [address] [address], [place], [place], [address], [place] tel:[phone] [facility] No Information Arlethalex Barker. . Referring Provider: Delfino Cesar BrigetteKaylene [address], [place], [address]. tel:[phone] [place], [place] [id number] [address], [place], [place], [address], tel:[phone] [facility] No Information Arleth Barker. . Referring Provider: Delfino Cesar BrigetteKaylene [address], [place], [address]. tel:[phone] [place] [address] [place], [place] [address], [place], [place], [address], tel:[phone] [facility] No Information Arleth Barker. . Referring Provider: Delfino Cesar BrigetteKaylene [address], [place], [address]. tel:[phone] [place], [place] [id number] [address], [place], [place], [address], tel:[phone] [facility] No Information Arleth Barker. . Referring Provider: Delfino Cesar BrigetteKaylene [address], [place], [address]. tel:[phone] [place], [place] [id number] [address], [place], [place], [address], [place] tel:[phone] [facility] No Information Arleth Barker. . Referring Provider: Delfino Cesar, Laura [facility] [address], [place], [address]. tel:[phone] [place] [address] [address] [facility], [place], [place], [address], tel:[phone] [facility] No Information Arleth Barker. . Referring Provider: Delfino Cesar Laura [facility] [address], [place], [address]. tel:[phone] [place] [address], [address] [facility], [place], [place], [address], tel:[phone] [facility] No Information Arleth Barker. . Referring Provider: Delfino Cesar BrigetteKaylene [facility] [address], [place], [address]. tel:[phone] [place] [address] [address] [facility], [place], [place], [address], tel:[phone] [facility] No Information Arleth Barker. . Referring Provider: Delfino Cesar BrigetteKaylene [facility] [address], [place], [address]. tel:[phone] [place] [address] [address], [place], [place], [address], tel:[phone] [facility] No Information Arleth Barker. . Referring Provider: Delfino Cesar BrigetteKaylene [facility] [address], [place], [address]. tel:[phone] [place], [place] [address] [address], [place], [place], [address], tel:[phone] [facility] No Information Arleth Barker. . Referring Provider: Delfino Cesar, [address] [facility] [address], [place], [address]. tel:[phone] Family History Family Member Type Diagnosis Age At Onset No Information Payers Payer name Insurance type Covered constitution party ID Renan caba(annie Rey [id number] Geena GALEANO LI 00 Social History Type [...]
[2024-05-24] MEDS: ACETAMINOPHEN 500 MG TABLET 1000 MG PO (09:28)
[2024-05-24] MEDS: LACTATED RINGERS 1,000 ML 30 ML IV CONT ×2 (09:35→12:40)
[2024-05-24 09:36] LABS: BEDSIDEPREGUCG Negative (Negative)
[2024-05-24] MEDS: KETOROLAC 15 MG/ML VIAL (*BKC) IV PUSH (09:39)
[2024-05-24] MEDS: SCOPOLAMINE 1 MG PATCH 1 PATCH TRANSDERM (10:25)
--- NOTE | 2024-05-24 10:36 | WPDANESEPPF ---
Anes - Initial Pre Proc Eval Procedure: Operation Date: 05/24/24 11:00 Proposed Procedures p Laparoscopic Cholecystectomy, Possible Open - Catalino Koch MD Date/Time: 05/24/24 10:36 Surgeon: Catalino Koch MD Pre Op Diagnosis: biliary colic Patient Data Age: 34 Gender: F Height: 1.63 m Weight: 94.55 kg Last Vital Signs Temp 36.6 C 05/24/24 09:31 Pulse 87 05/24/24 09:31 Resp 18 05/24/24 09:31 BP 126/75 05/24/24 09:31 Pulse Ox 100 05/24/24 09:31 O2 Del Method Room Air 05/24/24 09:31 Allergies Allergy/AdvReac Type Severity Reaction Status Date / Time carboplatin Allergy Severe Anaphylaxis Verified 05/24/24 09:34 ciprofloxacin AdvReac Intermediate Diarrhea Verified 05/24/24 09:34 doxycycline AdvReac Intermediate Vomiting Verified 05/24/24 09:34 oxycodone (From Percocet) AdvReac Intermediate Vomiting Verified 05/24/24 09:34 Txalhaa-YSB-KvT Reductase AdvReac Intermediate Myalgias Verified 05/24/24 09:34 Inhibitor nitrofurantoin AdvReac Mild Rash Verified 05/24/24 09:34 Home Medications ?Medication ?Instructions ?Recorded ?Confirmed ?Type levothyroxine 75 mcg capsule 75 mcg PO DAILY #90 caps 05/30/23 05/24/24 Rx linaclotide 72 mcg capsule 72 mcg PO DAILY 1 month #30 caps 10/12/23 05/24/24 Rx (Linzess) alprazolam 0.25 mg tablet 0.25 mg PO DAILY PRN anxiety #30 01/08/24 05/14/24 Rx tabs bempedoic acid 180 mg tablet 180 mg PO DAILY #90 tabs 02/27/24 05/24/24 Rx (Nexletol) montelukast 10 mg tablet 10 mg PO DAILY #90 tabs 02/27/24 05/24/24 Rx (Singulair) omeprazole 40 mg capsule,delayed 40 mg PO DAILY 1 month #30 caps 03/08/24 05/24/24 Rx release Laboratory Tests 05/24/24 09:20 POC Urine HCG, Qual Negative (Negative) Patient hx anesthesia problems: none Family hx anesthesia problems: none Results Review: All pre-operative results and documents have been reviewed as part of the pre-operative evaluation. [facility] Past Medical History Medical History Vitamin B12 deficiency Biliary dyskinesia Nausea and vomiting Left sided abdominal pain Heartburn Dyslipidemia Breast lump Breast pain History of breast cancer Endometriosis determined by laparoscopy Abnormal breast biopsy Endometriosis Breast cancer right breast, medial position lumpectomy 02-10-2022, Dr Kiser Vitamin D deficiency Elevated cholesterol Pain of left calf Hematuria Triple negative breast cancer Surgical History Surgical History S/P myringotomy with insertion of tube Hx of myomectomy History of adenoidectomy History of breast biopsy History of tonsillectomy Social History Social History Smoking status: Never smoker Alcohol intake: former Drinks per week: 1 Alcohol use details: rarely Substance use: never Substance use type: does not use Current Housing: Decline to Answer Concerned About Future Housing: Decline to Answer Difficulty Paying Gas/Electric Bills: Decline to Answer Difficulty Paying for Meds: Decline to Answer Currently Unemployed: Decline to Answer Education: Decline to Answer Difficulty w/ Childcare or Family Care: Decline to Answer Living arrangements: alone Occupation/Education: occupation Gender identity (if verbalized by the patient): Female Spiritual care concerns: No Anes - Eval Final PreProcedure Day of Procedure 05/24/24 10:36 Patient weight: obese Heart: regular rate and rhythm Lungs: clear to auscultation Airway: Mallampati scale class II Neurological: alert and oriented Last oral intake: >/= 8 hours ASA classification: III Emergent: no Anesthetic plan: proceed Anesthesia type and monitoring: general ETT and standard monitoring Results Review: All pre-operative results and documents have been reviewed as part of the pre-operative evaluation. Informed Consent: The patient's anesthetic plan and its attendant risks and benefits were discussed with the patient/family/POA. Questions were solicited and answers provided to the satisfaction of the patient/family/POA.
--- NOTE | 2024-05-24 10:40 | PM.IMHP ---
H&P: HPI History of Present Illness Date/Time: 05/24/24 10:40 Chief Complaint: Gallbladder disease Narrative: Latrice is a 34 y/o female who presents to the office at the request of Smitha NO for evaluation of generalized abdominal pain with associated nausea/vomiting. She also reports heartburn and low grade fevers. States bowel movements have fluctuated between diarrhea and constipation. Reports abdominal bloating. States these symptoms have been occurring since April 2023, but worsened over the past month. Unremarkable abdominal ultrasound was performed in September 2023. HIDA scan on 03/11/24 showed Essentially akinetic gallbladder with markedly decreased ejection fraction consistent with gallbladder dysfunction or chronic cholecystitis. State she cannot pinpoint and certain foods that trigger symptoms. Review of Systems Review of Systems: The remainder of the review of systems to include constitutional, HEENT, cardiovascular, respiratory, GI, , integumentary, musculoskeletal, endocrine, immunologic, hematologic, psychiatric, and neurologic are all negative except for which is mentioned above in the HPI. [facility] Past Medical History Medical History Vitamin B12 deficiency Biliary dyskinesia Nausea and vomiting Left sided abdominal pain Heartburn Dyslipidemia Breast lump Breast pain History of breast cancer Endometriosis determined by laparoscopy Abnormal breast biopsy Endometriosis Breast cancer right breast, medial position lumpectomy 02-10-2022, Dr Kiser Vitamin D deficiency Elevated cholesterol Pain of left calf Hematuria Triple negative breast cancer Surgical History Surgical History S/P myringotomy with insertion of tube Hx of myomectomy History of adenoidectomy History of breast biopsy History of tonsillectomy Social History Social History Smoking status: Never smoker Alcohol intake: former Drinks per week: 1 Alcohol use details: rarely Substance use: never Substance use type: does not use Current Housing: Decline to Answer Concerned About Future Housing: Decline to Answer Difficulty Paying Gas/Electric Bills: Decline to Answer Difficulty Paying for Meds: Decline to Answer Currently Unemployed: Decline to Answer Education: Decline to Answer Difficulty w/ Childcare or Family Care: Decline to Answer Living arrangements: alone Occupation/Education: occupation Gender identity (if verbalized by the patient): Female Spiritual care concerns: No Meds Home Medications and Allergies Home Medications ?Medication ?Instructions ?Recorded ?Confirmed ?Type levothyroxine 75 mcg capsule 75 mcg PO DAILY #90 caps 05/30/23 05/24/24 Rx linaclotide 72 mcg capsule 72 mcg PO DAILY 1 month #30 caps 10/12/23 05/24/24 Rx (Linzess) alprazolam 0.25 mg tablet 0.25 mg PO DAILY PRN anxiety #30 01/08/24 05/14/24 Rx tabs bempedoic acid 180 mg tablet 180 mg PO DAILY #90 tabs 02/27/24 05/24/24 Rx (Nexletol) montelukast 10 mg tablet 10 mg PO DAILY #90 tabs 02/27/24 05/24/24 Rx (Singulair) omeprazole 40 mg capsule,delayed 40 mg PO DAILY 1 month #30 caps 03/08/24 05/24/24 Rx release Allergies Allergy/AdvReac Type Severity Reaction Status Date / Time carboplatin Allergy Severe Anaphylaxis Verified 05/24/24 09:34 ciprofloxacin AdvReac Intermediate Diarrhea Verified 05/24/24 09:34 doxycycline AdvReac Intermediate Vomiting Verified 05/24/24 09:34 oxycodone (From Percocet) AdvReac Intermediate Vomiting Verified 05/24/24 09:34 Ylhnfjv-SRI-SfL Reductase AdvReac Intermediate Myalgias Verified 05/24/24 09:34 Inhibitor nitrofurantoin AdvReac Mild Rash Verified 05/24/24 09:34 Vital Signs Vital Signs - 24 hr 05/24/24 09:31 Temperature 36.6 C Pulse Rate 87 Respiratory Rate 18 Blood Pressure 126/75 Pulse Oximetry 100 Oxygen Delivery Room Air Exam Const: General: comfortable and no acute distress HENMT: Ears: TM's normal bilaterally Face/Nose/Sinus: Normal nares present Mouth: Yes moist mucous membranes Eyes: General: appearance normal, both eyes and all related structures Sclera: sclerae normal Pupils: Equal, round and reactive pupils present EOM: EOMs intact bilaterally Neck: Neck: supple and no JVD Resp: Effort & Inspection: normal respiratory effort Auscultation: clear to auscultation bilaterally Cardio: Rate: regular rate Rhythm: regular rhythm GI: GI Palp: Yes Soft to palpation, No Firmness to palpation present (GI), No Tenderness to palpation present (GI), No Guarding due to palpation present (GI) and No Hernia present Skin: General skin exam: normal color and no rashes or lesions noted Neuro: General: gait normal Speech: normal speech Motor exam (neuro): 5/5 motor strength present throughout Sensory Exam: normal sensation Extrem: General: normal to inspection Psych: Mental Status: mental status grossly normal Affect: normal affect Assessment and Plan Assessment and plan (1) Biliary colic: Code(s): K80.50 - Calculus of bile duct without cholangitis or cholecystitis without obstruction Status: Acute Assessment and Plan: See below (2) Biliary dyskinesia: Code(s): K82.8 - Other specified diseases of gallbladder Status: Acute Assessment and Plan: I have reviewed the radiology imaging prior to today's visit. HIDA scan showing GBEF is 1%. I have recommended a laparoscopic cholecystectomy, possible open, to be done under general anesthesia as an outpatient. We discussed the procedure in detail as well as risks of conversion to open, bleeding, infection & bile leak. Gallbladder information sheet and low fat diet information was given to the patient. Discussed the typical postoperative recovery. All questions were answered. Patient would like to proceed. Follow-up 2 weeks postoperatively.
--- NOTE | 2024-05-24 10:43 | WPDHPUPDATE1 ---
History and Physical Update Update Date/Time: 05/24/24 10:43 History and Physical has been reviewed, including an updated exam of the patient. There are NO changes in the patient's condition. Risks, benefits, and alternatives have been discussed and questions answered. Patient agrees to proceed with procedure.
[2024-05-24] MEDS: ceFAZolin 2 GM/D5W 50 ML 2 GM/50 ML BAG IVPB (11:06)
[2024-05-24] MEDS: LIDO 1%/EPINEPHRINE 1:100,000 50 ML VIAL 30 ML INFILTRATE (11:18)
[2024-05-24] MEDS: BUPivacaine HCL 0.5% PF 30 ML VIAL INFILTRATE (11:19)
--- NOTE | 2024-05-24 11:44 | SUR.OPER ---
Dr. Koch asked for pressure to be decreased to 10mmHg. Insufflation stopped, and restarted at 10mmHG @ 11:43. Increased to 12mmHg
[2024-05-24] MEDS: fentaNYL CITRATE INJ (*CRX) 100 MCG/2 ML VIAL 25 MCG IV PUSH ×4 (12:49→13:12)
--- NOTE | 2024-05-24 13:07 | W.PM.PROC2 ---
Procedure Note - Detailed Date of Procedure 05/24/24 Pre-op Diagnosis Biliary colic, gallbladder dysfunction Post-op Diagnosis Other Procedure Performed Acute acalculous cholecystitis Surgeon Catalino Koch MD Chemical Processing Supervisor Chest [facility] Anesthesia General Indications Patient is a 34-year-old female who has been very symptomatic with having right upper quadrant pain after eating. She had abdominal ultrasound showing no gallstones. A HIDA scan was then performed showing 1% ejection fraction of gallbladder signifying significant gallbladder dysfunction. She presents now for elective laparoscopic cholecystectomy. Findings The gallbladder wall was mildly thickened. There did not appear to be any acute inflammatory changes. There were no adhesions of the omentum, duodenum, or stomach to the gallbladder wall. It all appeared to be consistent with chronic acalculous cholecystitis. Description of Procedure After informed consent was obtained patient brought to the operating room she was placed supine position and general endotracheal anesthesia was administered. The abdomen was then prepped and draped usual sterile fashion. A time-out was then performed correctly identifying the patient as well as procedure to be performed. She was given perioperative IV antibiotics. I then started the procedure by placing a 5mm Optiview port in left upper quadrant without any difficulty. Once inside the abdomen insufflated to adequate pneumoperitoneum of 15mmHg of CO2. There were no adhesions around the area the umbilicus. I then placed a 5mm periumbilical trocar port and then 2 right lateral subcostal 5mm trocar ports and a 10mm epigastric trocar port. During the trocar port placement anesthesia noted the patient became profoundly bradycardic. I immediately reduced pneumoperitoneum by opening all the ports in stopping the insufflation of CO2. Anesthesia then quickly address the profound bradycardia her atropine and calcium gluconate. She never lost her blood pressure and never became totally asystolic. After she stabilized drains were heart rate and making sure she had adequate blood pressure we then reach even pneumoperitoneum at a lower pressure of 12mmHg with CO2. Patient tolerated the pneumoperitoneum at the lower pressure without any difficulty and I proceeded with the surgery. A laparoscopic grasper used to hold the gallbladder at the dome and the gallbladder was elevated over the right half liver towards the right shoulder. A 2nd grasper used then used to hold the gallbladder at the infundibulum. I then placed lateral traction on the infundibulum of the gallbladder. I then proceeded to strip down the visceral peritoneum off of the infundibular gallbladder to identify the cystic duct. The cystic duct was then dissected out circumferentially. The cystic artery was identified and dissected out circumferentially as well. Posterior wall the gallbladder at the infundibulum dissected free liver into the critical view was obtained. At this point I then placed 2 clips across the cystic duct and 2 clips distally on infundibular gallbladder. The cystic duct was then divided with Endo Vanesa. In a similar fashion cystic artery was clipped and divided as well. The gallbladder was then resected off the liver electrocautery. Towards the end the dissection of the gallbladder off the liver there was entrance into the top portion the gallbladder in a very small amount of bile spilled from the gallbladder. No stones were spilled. Once the gallbladder was completely free from liver is placed into an Endo-Catch bag and brought out through the epigastric port site. Gallbladder and contents were sent to pathology. No gallstones were palpated in the gallbladder. I then irrigated out the right upper quadrant the abdomen the gallbladder fossa with sterile saline solution. There is no bile staining of the fluid. Once I aspirated all the fluid from the right upper quadrant from the pelvis. I then removed all the trocar ports under direct visualization all port sites appeared hemostatic. The abdomen was allowed to decompress. I then irrigated the port sites with sterile saline solution hemostasis was good. The epigastric 10mm trocar port fascial defect was then closed utilizing 0 Vicryl suture at the fascial level. The skin edges in all the port sites were then approximated utilizing a running subcuticular 4 Monocryl suture. The incisions were then cleaned the skin glue was applied. The patient ultimately had a successful laparoscopic cholecystectomy. Intraoperatively she did have some profound bradycardia with a pneumoperitoneum of 15mmHg. This was addressed by the anesthesiologist and once the patient stabilized Dr. Obrien and myself discussed and we decided to proceed with the surgery as the patient has stabilized and we were running and lower pneumoperitoneum pressure.. All sponges, needles, and instrument counts were correct at the end procedure. EBL was _25__cc. The patient was awakened and taken to recovery in stable and satisfactory condition. Implants None Estimated Blood Loss 25 Drains No Packing No Pathology Yes (Gallbladder and contents to pathology) Complications Other complications (Patient did have an episode of profound bradycardia during the surgery after achieving a pneumoperitoneum of 15mm of CO2. ) Condition Stable Disposition PACU [facility] Billing Surgery - Charge Forward: Surgery Billing
[2024-05-24] MEDS: ONDANSETRON INJ 4 MG/2 ML VIAL IV PUSH (13:08)
[2024-05-24] MEDS: diphenhydrAMINE HCl INJ 50 MG/ML VIAL 25 MG IV PUSH (13:24)
[2024-05-24] MEDS: PROMETHAZINE HCL 25 MG/ML AMPUL 12.5 MG IV PUSH (13:44)
[2024-05-24] MEDS: BELLADONNA ALK/PHENOB ELIX 10 ML, MAG HYDROX/ALUMINUM HYD/SIMETH 30 ML, LIDOCAINE 2% VI... PO (13:49)
== END 2024-05-24 16:31 | disposition home or self-care (01) ==
PROVIDERS: Anesthesiology; PCP Physician Assistant Medical; Visit Provider Surgery
PROC: 0FT44ZZ Resection of Gallbladder, Percutaneous Endoscopic Approach (ICD-10-PCS; CPT 47562; principal; 2024-05-24 11:00)
DX: K82.8 Other specified diseases of gallbladder (principal); K82.4 Cholesterolosis of gallbladder; R00.1 Bradycardia, unspecified; E78.00 Pure hypercholesterolemia, unspecified; E55.9 Vitamin D deficiency, unspecified; E53.8 Deficiency of other specified B group vitamins; N80.9 Endometriosis, unspecified; E66.9 Obesity, unspecified; Z68.35 Body mass index [BMI] 35.0-35.9, adult; Z98.890 Other specified postprocedural states; Z85.3 Personal history of malignant neoplasm of breast
CPT/HCPCS: 47562; 88304; A9270; J0461; J0690; J1200; J1596; J1885; J2004; J2250; J2405; J2550; J2704; J3010; J7120

== ENCOUNTER 2024-05-27 12:24 | Emergency (ER) | payer OTHER, SELFPAY ==
--- OUTSIDE RECORDS SUMMARY | 2024-05-27 14:42 | XMS_ITS | Encounter Summary ---
Author Organization [facility] Address [facility] [place] [address] Care Team Providers Care Carpenter Refrigerator Name Role Phone Bhavna Ventura PA-C Primary Care Provider [phone] Petey York MD Primary Care Provider [phone] Encounter Details Date Type Department Care Team (Late st Contact Info) Description 12/28/2022 MenuSpring Message Enc [facility] [address] [facility] [address] [place] [address] [place] [address] [place], [place] [id number] pain Social History Tobacco Use Types Packs/Day [...] Information Value Date Recorded Sex Assigned at Female 05/27/2024 1:45 PM CDT Legal Sex Female 5:20 PM CDT Gender Identity Not on file Sexual Orientation Not on file documented as of this encounter Plan of Treatment Not on file documented as of this encounter Visit Diagnoses Not on filedocumented in this encounter Care Teams Carpenter Refrigerator Relationship Specialty Start Date End Date Bhavna Ventura PA-C [address] [place], [place] [id number] [place] [address] PCP - General PHYSICIAN SHOE LASTER 12/24/21 01/16/23 Petey York MD [address] [place] [id number] PCP - General FAMILY PRACTICE 01/17/23 documented as of this encounter
--- OUTSIDE RECORDS SUMMARY | 2024-05-27 14:42 | XMS_ITS | Encounter Summary ---
Author Organization [facility] Address [address] [place] [id number] Care Team Providers Care Aerial Photographer Name Role Phone Petey York MD Primary Care Provider [phone] Encounter Details Date Type Department Care Team (Late st Contact Info) Description 10/13/2023 Fantrotter Message Enc [facility] Medical Group Family & Internal Medicine [facility] [address] [place] [address] [place] [address] [place] [address] Antibiotics/yeast Social History Tobacco Use [...] on filedocumented in this encounter Care Teams Aerial Photographer Relationship Specialty Start Date End Date Petey York MD [address] [place] [id number] PCP - General FAMILY PRACTICE 01/17/23 documented as of this encounter
--- OUTSIDE RECORDS SUMMARY | 2024-05-27 14:42 | XMS_ITS ---
Author Organization [facility] Address [address] [place] [address] Care Team Providers Care Wallpaper Printer Helper Name Role Phone Chela PRAJAPATI, Dr Angelo Primary Care Provider Nita Naqvi Unavailable [phone] REASON FOR VISIT SCIT - Traditional Schedule Allergy Immunotherapy Encounters Encounter Location Date Provider Diagnosis [address] [address] 05/20/2024 Nita Conrad Allergic rhinitis du e [...] Provider Name:Nita felton, 05/30/2024 05:00:00 PM, [address] [place], [address], Provider Name:Nita felton, 06/12/2024 05:00:00 PM, [address] [place], [address], Provider Name:Nita felton, 06/25/2024 05:00:00 PM, [place], [address], Progress Notes * Latrice BRAYDOB:1990 (34 yo F)Acc No.[id number]:05/20/2024 SCIT-Aeroallergen Patient: Latrice ROMERO Provider: James Conrad MD :1990 A ge:34 Y S ex:Female Date:05/20/2024 Address:[address] [place], [place] [id number] Pcp:Dr Petey York MD Subjective: * Chief [...] Information: * Visit Code: * Procedure Codes: 69663 IMMUNOTHERAPY INJECTIONS. * Electronic signature of An Conrad MD on 05/27/2024 at 01:47 PM CDT Sign off status: Pending * Provider: James Conrad MD Date: 05/20/2024 Generated for Ortiz randall/Nina/Denisse on: 0 05/27/2024 01:47 PM CDT History and Physical Notes * HPI [...]
--- OUTSIDE RECORDS SUMMARY | 2024-05-27 14:42 | XMS_ITS | Patient Health Record ---
Author Organization [facility] Address [address] [place] [address] Care Team Providers Care Business Controller Name Role Phone Chela PRAJAPATI, Dr Angelo Primary Care Provider Nita Naqvi Unavailable [phone] [facility], Provider Unavailable Unavailab le Allergies Allergen [...] Status Risk Notes Problem Chronic allergic conjunctivitis (30901255) Other chronic allergic conjunctivitis (H10.45) Active confirmed Problem Allergic rhinitis caused by pollen (disorder) (51571116) Allergic rhinitis due to pollen (J30.1) Active confirmed Problem Allergic rhinitis (46954969) Other allergic rhinitis (J30.89) Active confirmed Problem Allergic rhinitis caused by animal hair and dander (590909577459792) Allergic rhinitis due to animal (cat) (dog) hair and dander (J30.81) Active confirmed Vital Signs Oximetry 99 % 04/29/2024 Blood pressure diastolic 74 mm Hg 04/29/2024 Height 64 in 04/29/2024 Blood pressure systolic 108 mm Hg 04/29/2024 Weight 212.4 lbs 04/29/2024 BMI 36.45 kg/m2 04/29/2024 Encounters Encounter Location Date Provider Diagnosis [address] [address] 08/26/2023 Provider [facility]-Migration Allergic rhinitis due to pollen J30.[address] [address] 07/24/2023 Nita Conrad Allergic rhinitis du e to pollen J30.1 ; Shortness of breath R06.02 ; Allergic rhinitis due to animal (cat) (dog) hair and dander J30.81 ; Other allergic rhinitis J30.89 and Other chronic allergic conjunctivitis H10.[address] [address] 07/31/2023 Nita Conrad Allergic rhinitis du e to pollen J30.1 ; Allergic rhinitis due to animal (cat) (dog) hair and dander J30.81 ; Other allergic rhinitis J30.89 and Other chronic allergic conjunctivitis H10.45 [facility] [address] [facility] [place] [address] 08/10/2023 Nita Houston Allergic rhinitis du e to pollen J30.1 ; Other allergic rhinitis J30.89 ; Allergic rhinitis due to animal (cat) (dog) hair and dander J30.81 and Other chronic allergic conjunctivitis H10.45 [facility] [address] [facility] [place] [address] 08/24/2023 Nita Houston Allergic rhinitis du e to pollen J30.1 ; Other allergic rhinitis J30.89 ; Allergic rhinitis due to animal (cat) (dog) hair and dander J30.81 and Other chronic allergic conjunctivitis H10.45 [facility] [address] [facility] [place] [address] 08/29/2023 Nita Houston Allergic rhinitis du e to pollen J30.1 ; Other allergic rhinitis J30.89 ; Allergic rhinitis due to animal (cat) (dog) hair and dander J30.81 and Other chronic allergic conjunctivitis H10.45 [facility] [address] [facility] [place] [address] 09/04/2023 Nita Houston Allergic rhinitis du e to pollen J30.1 ; Other allergic rhinitis J30.89 ; Allergic rhinitis due to animal (cat) (dog) hair and dander J30.81 and Other chronic allergic conjunctivitis H10.45 [facility] [address] [facility] [place] [address] 09/13/2023 Nita Houston Allergic rhinitis du e to pollen J30.1 ; Other allergic rhinitis J30.89 ; Allergic rhinitis due to animal (cat) (dog) hair and dander J30.81 and Other chronic allergic conjunctivitis H10.45 [facility] [place] [address] [facility] [place] [address] 09/20/2023 Nita Houston Allergic rhinitis du e to pollen J30.1 ; Other allergic rhinitis J30.89 ; Allergic rhinitis due to animal (cat) (dog) hair and dander J30.81 and Other chronic allergic conjunctivitis H10.45 [facility] [address] [facility] [place] [address] 09/28/2023 Nita Houston Allergic rhinitis du e to pollen J30.1 ; Other allergic rhinitis J30.89 ; Allergic rhinitis due to animal (cat) (dog) hair and dander J30.81 and Other chronic allergic conjunctivitis H10.45 [facility] [address] [facility] [place] [address] 10/03/2023 Nita Houston Allergic rhinitis du e to pollen J30.1 ; Other allergic rhinitis J30.89 ; Allergic rhinitis due to animal (cat) (dog) hair and dander J30.81 and Other chronic allergic conjunctivitis H10.45 [facility] [address] [facility] [place] [address] 10/17/2023 Nita Houston Allergic rhinitis du e to pollen J30.1 ; Other allergic rhinitis J30.89 ; Allergic rhinitis due to animal (cat) (dog) hair and dander J30.81 and Other chronic allergic conjunctivitis H10.45 [facility] [address] [facility] [place] [address] 10/24/2023 Nita Houston Allergic rhinitis du e to pollen J30.1 ; Other allergic rhinitis J30.89 ; Allergic rhinitis due to animal (cat) (dog) hair and dander J30.81 and Other chronic allergic conjunctivitis H10.45 [facility] [address] [facility] [place] [address] 10/31/2023 Nita Houston Allergic rhinitis du e to pollen J30.1 ; Other allergic rhinitis J30.89 ; Allergic rhinitis due to animal (cat) (dog) hair and dander J30.81 and Other chronic allergic conjunctivitis H10.45 [facility] [address] [facility] [place] [address] 11/07/2023 Nita Houston Allergic rhinitis du e to pollen J30.1 ; Other allergic rhinitis J30.89 ; Allergic rhinitis due to animal (cat) (dog) hair and dander J30.81 and Other chronic allergic conjunctivitis H10.45 [facility] [address] [facility] [place] [address] 11/14/2023 Nita Houston Allergic rhinitis du e to pollen J30.1 ; Other allergic rhinitis J30.89 ; Allergic rhinitis due to animal (cat) (dog) hair and dander J30.81 and Other chronic allergic conjunctivitis H10.45 [facility] [address] [facility] [place] [address] 11/22/2023 Nita Houston Allergic rhinitis du e to pollen J30.1 ; Other allergic rhinitis J30.89 ; Allergic rhinitis due to animal (cat) (dog) hair and dander J30.81 and Other chronic allergic conjunctivitis H10.45 [facility] [address] [facility] [place] [address] 12/05/2023 Nita Houston Allergic rhinitis du e to pollen J30.1 ; Other allergic rhinitis J30.89 ; Allergic rhinitis due to animal (cat) (dog) hair and dander J30.81 and Other chronic allergic conjunctivitis H10.[address] [place] [address] 12/12/2023 Nita Houston Allergic rhinitis du e to pollen J30.1 ; Other allergic rhinitis J30.89 ; Allergic rhinitis due to animal (cat) (dog) hair and dander J30.81 and Other chronic allergic conjunctivitis H10.[address] [place] [address] 12/19/2023 Nita Houston Allergic rhinitis du e to pollen J30.1 ; Other allergic rhinitis J30.89 ; Allergic rhinitis due to animal (cat) (dog) hair and dander J30.81 and Other chronic allergic conjunctivitis H10.45 [facility] [address] [facility] [place] [address] 12/26/2023 Nita Houston Allergic rhinitis du e to pollen J30.1 ; Other allergic rhinitis J30.89 ; Allergic rhinitis due to animal (cat) (dog) hair and dander J30.81 and Other chronic allergic conjunctivitis H10.45 [facility] [address] [facility] [place] [address] 01/02/2024 Nita Houston Allergic rhinitis du e to pollen J30.1 ; Other allergic rhinitis J30.89 ; Allergic rhinitis due to animal (cat) (dog) hair and dander J30.81 and Other chronic allergic conjunctivitis H10.45 [facility] [address] [facility] [place] [address] 01/11/2024 Nita Houston Allergic rhinitis du e to pollen J30.1 ; Other allergic rhinitis J30.89 ; Allergic rhinitis due to animal (cat) (dog) hair and dander J30.81 and Other chronic allergic conjunctivitis H10.45 [facility] [address] [facility] [place] [address] 01/17/2024 Nita Houston Allergic rhinitis du e to pollen J30.1 ; Other allergic rhinitis J30.89 ; Allergic rhinitis due to animal (cat) (dog) hair and dander J30.81 and Other chronic allergic conjunctivitis H10.45 [facility] [address] [facility] [place] [address] 01/30/2024 Nita Houston Allergic rhinitis du e to pollen J30.1 ; Other allergic rhinitis J30.89 ; Allergic rhinitis due to animal (cat) (dog) hair and dander J30.81 and Other chronic allergic conjunctivitis H10.45 [facility] [address] [facility] [place] [address] 02/05/2024 Nita Houston Allergic rhinitis du e to pollen J30.1 ; Other allergic rhinitis J30.89 ; Allergic rhinitis due to animal (cat) (dog) hair and dander J30.81 and Other chronic allergic conjunctivitis H10.45 [facility] [address] [facility] [place] [address] 02/12/2024 Nita Houston Allergic rhinitis du e to pollen J30.1 ; Other allergic rhinitis J30.89 ; Allergic rhinitis due to animal (cat) (dog) hair and dander J30.81 and Other chronic allergic conjunctivitis H10.45 [facility] [address] [facility] [place] [address] 02/20/2024 Nita Houston Allergic rhinitis du e to pollen J30.1 ; Other allergic rhinitis J30.89 ; Allergic rhinitis due to animal (cat) (dog) hair and dander J30.81 and Other chronic allergic conjunctivitis H10.45 [facility] [address] [facility] [place] [address] 02/27/2024 Nita Houston Allergic rhinitis du e to pollen J30.1 ; Other allergic rhinitis J30.89 ; Allergic rhinitis due to animal (cat) (dog) hair and dander J30.81 and Other chronic allergic conjunctivitis H10.45 [facility] [address] [facility] [place] [address] 03/11/2024 Nita Houston Allergic rhinitis du e to pollen J30.1 ; Other allergic rhinitis J30.89 ; Allergic rhinitis due to animal (cat) (dog) hair and dander J30.81 and Other chronic allergic conjunctivitis H10.45 [facility] [address] [facility] [place] [address] 03/27/2024 Nita Houston Allergic rhinitis du e to pollen J30.1 ; Other allergic rhinitis J30.89 ; Allergic rhinitis due to animal (cat) (dog) hair and dander J30.81 and Other chronic allergic conjunctivitis H10.45 [facility] [address] [facility] [place] [address] 04/01/2024 Nita Houston Allergic rhinitis du e to pollen J30.1 ; Dermatitis, unspecified L30.9 ; Shortness of breath R06.02 ; Allergic rhinitis due to animal (cat) (dog) hair and dander J30.81 ; Other allergic rhinitis J30.89 and Other chronic allergic conjunctivitis H10.45 [facility] [place] [address] [facility] [place] [address] 04/10/2024 Nita Houston Allergic rhinitis du e to pollen J30.1 ; Other allergic rhinitis J30.89 ; Allergic rhinitis due to animal (cat) (dog) hair and dander J30.81 and Other chronic allergic conjunctivitis H10.45 [facility] [place] [address] [facility] [place] [address] 04/15/2024 Nita Houston Allergic rhinitis du e to pollen J30.1 ; Other allergic rhinitis J30.89 ; Allergic rhinitis due to animal (cat) (dog) hair and dander J30.81 and Other chronic allergic conjunctivitis H10.45 [facility] [place] [address] [facility] [place] [address] 04/22/2024 Nita Houston Allergic rhinitis du e to pollen J30.1 ; Other allergic rhinitis J30.89 ; Allergic rhinitis due to animal (cat) (dog) hair and dander J30.81 and Other chronic allergic conjunctivitis H10.45 [facility] [place] [address] [facility] [place] [address] 04/29/2024 Nita Houston Allergic rhinitis du e to pollen J30.1 ; Dermatitis, unspecified L30.9 ; Shortness of breath R06.02 ; Allergic rhinitis due to animal (cat) (dog) hair and dander J30.81 ; Other allergic rhinitis J30.89 and Other chronic allergic conjunctivitis H10.45 [facility] [place] [address] [facility] [place] [address] 05/15/2024 Nita Houston Allergic rhinitis du e to pollen J30.1 ; Other allergic rhinitis J30.89 ; Allergic rhinitis due to animal (cat) (dog) hair and dander J30.81 and Other chronic allergic conjunctivitis H10.45 [facility] [place] [address] [facility] [place] [address] 06/15/2023 Nita Houston [facility] [place] [address] [facility] [place] [address] 06/27/2023 Nita Houston [facility] [address] [facility] [place] [address] 08/01/2023 Nita Houston [facility] [place] [address] [place] [address] 08/03/2023 Nita Conrad [facility] [place] [address] [place] [address] 04/01/2024 Nita Conrad [facility] [place] [address] [place] [address] 08/02/2023 Nita Conrad [facility] [place] [address] [place] [address] 08/02/2023 Nita [facility] [place] [address] [place] [address] 08/02/2023 Nita Conrad Assessments Encounter Date Diagnosis [...] Details Provider Name:Nita felton, 05/30/2024 05:00:00 PM, [facility] [place] [address], [address], Provider Name:Nita felton, 06/12/2024 05:00:00 PM, [facility] [place], [address], Provider Name:Nita felton, 06/25/2024 05:00:00 PM, [facility] [place], [address], Insurance Providers Payer Name Payer Address Payer Phone Subscriber Number Group Number Insured Name Patient Relationship to Insured Coverage Start Date Coverage End Date [employer] II [address] [address] [facility] [place] [address] [id number] Latrice Tate Self - patient is the insured Medical (General) History Medical History History ICD Code Hypothyroidism Cancer Surgical History Surgery Date(Month/Year) Lumpectomy 02/10/2022 port removal 07/14/2023
--- OUTSIDE RECORDS SUMMARY | 2024-05-27 14:42 | XMS_ITS | Clinical Summary ---
Author Organization [facility] Address [address] [place] [address] Care Team Providers Care Loom Fixer Name Role Phone Petey York MD Primary Care Provider [phone] Allergies Active Allergy Reactions Criticality Noted Date [...] tablet TAKE 1 TABLET(75 MCG) BY MOUTH EXECUTIVE MARKETING ASSISTANT BEFORE BREAKFAST 3 Active montelukast (SINGULAIR) 10 [...] 08/16/2022 Assessment & Plan (04/25/2023 10:27 AM PATTERN HANGER): Recommendation at this time is to continue with her home exercise program for the ankle. Patient will be seen back as needed. Assessment & Plan (01/31/2023 6:49 PM PATTERN HANGER): We got her set up to go [...] If her pain is being better controlled. Encounters Date Type Department Care Team Description 05/27/2024 1:49 PM CDT - Present Emergency [facility] Emergency Room [id number] [place] [address] Tamela Barreto MD Abdominal Pain 05/27/2024 Travel from Last 3 Months Immunizations Name Administration Dates Next Due Dtap [...] Sign Reading Time Taken Comments Blood Pressure 133/98 05/27/2024 1:55 PM CDT Pulse 114 05/27/2024 1:55 PM CDT Temperature 37.1 C (98.8 F) 05/27/2024 1:55 PM CDT Respiratory Rate 22 05/27/2024 1:55 PM CDT Oxygen Saturation 100% 05/27/2024 1:55 PM CDT Inhaled Oxygen Concentration - - Weight 95.3 kg (210 lb) 05/27/2024 1:55 PM CDT Height 162.6 cm (5' 4 ) 05/27/2024 1:55 PM CDT Body Mass Index 36.05 05/27/2024 1:55 PM CDT Plan of Treatment Health Maintenance [...] complete this topic Insurance [employer] Care Teams Loom Fixer Relationship Specialty Start Date End Date Petey York MD [address] [place] [id number] PCP - General FAMILY PRACTICE 01/17/23
--- OUTSIDE RECORDS SUMMARY | 2024-05-27 14:43 | XMS_ITS | Referral Summary ---
Author Organization [facility] Address [address] [place] [address] Care Team Providers Care Storeroom Clerk Name Role Phone Uziel Teofilo Jones MD Unavailable Arian Eaton MD Unavailable [phone] Nathan Fish MD Unavailable [phone] Shara Monreal MD Unavailable Malorie Malcolm NP Unavailable Petey York MD Primary Care Provider [phone] Encounters Date Type Department Care Team Description 05/06/2024 Orders Only [facility] [address] [place] [phone] Nathan Fish MD Invasive ductal carcinoma of breast, female, right (HCC) (Primary Dx); Malignant 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, estrogen receptor negative (HCC) 05/06/2024 Documentation [facility] [address] [place] [phone] Inessa Heart RC 05/06/2024 2:00 PM HANDLE ATTACHER Office Visit [facility] Radiation Oncology [address] [place] [phone] Arian Eaton MD Malignant 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, estrogen receptor negative (HCC) (Primary Dx) 05/06/2024 2:45 PM HANDLE ATTACHER Office Visit [facility] [address] [place] [address] [address] [place] [phone] Nathan Fish MD Malignant 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, estrogen receptor negative (HCC) (Primary Dx) 02/29/2024 Telephone [facility] [address] [address] [place] [address] Jocelin Jones RN Follow-Up Call 24-48 Hours; Test Results 02/28/2024 10:30 AM HANDLE ATTACHER - 02/28/2024 11:59 PM HANDLE ATTACHER Hospital Encounter [facility] [address] [place] [address] Abnormal MRI, breast Discharge Disposition: Discharge to home or self care 02/28/2024 7:24 AM HANDLE ATTACHER - 02/28/2024 11:59 PM HANDLE ATTACHER Hospital Encounter [facility] [address] [place] [address] Abnormal MRI, breast Discharge Disposition: [...] tablet TAKE 1 TABLET(75 MCG) BY MOUTH DEWER BEFORE BREAKFAST 90 tablet 1 11/03/19 24 [...] (07/30/2021): Added automatically from request for surgery [id number] Malignant neoplasm of upper- inner quadrant of [...] (10/22/2019): Added automatically from request for surgery [id number] Pelvic and perineal pain 10/22/2019 Overview (10/22/2019): Added automatically from request for surgery [id number] Persistent proteinuria 10/25/2018 Recurrent UTI 10/25/2018 Asymptomatic [...] on file Legal Sex Female 12:06 AM HANDLE ATTACHER Gender Identity Not on file Sexual Orientation Not on file Occupation Industry Job Start Date Job End Date [employer] Not on file Not on file Not on file Last Filed Vital Signs Vital Sign Reading Time Taken Comments Blood Pressure 126/82 05/06/2024 1:56 PM HANDLE ATTACHER Pulse 98 05/06/2024 1:56 PM HANDLE ATTACHER Temperature 36.1 C (97 F) 05/06/2024 2:30 PM HANDLE ATTACHER Respiratory Rate 18 05/06/2024 1:56 PM HANDLE ATTACHER Oxygen Saturation 100% 05/06/2024 1:56 PM HANDLE ATTACHER Inhaled Oxygen Concentration - - Weight 95.7 kg (211 lb) 05/06/2024 2:30 PM HANDLE ATTACHER Height 162.6 cm (5' 4 ) 05/06/2024 2:30 PM HANDLE ATTACHER Body Mass Index 36.22 05/06/2024 2:30 PM HANDLE ATTACHER Plan of Treatment Not on file Medical Devices Implanted Type Area Dentures Lab Technician Device Identifier Shelf Expiration Date Model / Serial / Lot [employer] Magseed 18ga 7cm Marker Breast Biopsy [id number] Right: Breast [email or web address] [id number] 12/10/2025 [id number] / / [id number] GeekStatus [facility] Trimark Second Marker Breast Biopsy Disposable Trimark Td 2s 13-Mr - [id number] Implanted:Qty: 1 on 02/28/2024 by Consuelo Altman MD at [facility] Right: Breast [employer] [id number] 06/13/2025 TRIMARK TD 2S 13-MR / / [id number] Explanted Type Area Dentures Lab Technician Device Identifier Shelf Expiration Date Model / Serial / Lot [employer] Access [employer] Powerport Isp Mri Airguard 8fr 1 Lumen Attachable Catheter Open Latex Free [id number] - [id number] Implanted:Qty: 1 on 08/06/2021 by Koffi Brandon MD at [facility] Explanted:Qty: 1 Right: Chest [employer] 09/09/2022 [id number] / / [id number] Procedures Procedure Name Priority Date/Time Associated Diagnosis Comments MAMM POST CLIP PLACEMENT RIGHT Schedule Routine, Read Routine (OP Routine) 02/28/2024 10:50 AM HANDLE ATTACHER Abnormal MRI, breast MRI GUIDED BREAST BIOPSY RIGHT Schedule Routine, Read Routine (OP Routine) 02/28/2024 10:28 AM HANDLE ATTACHER Abnormal MRI, breast SURGICAL PATHOLOGY Routine 02/28/2024 10:01 AM HANDLE ATTACHER Abnormal MRI, breast PAP AND HPV, REFLEX TO HPV GENOTYPES Routine 09/18/2023 4:32 AM CDT Screening for cervical cancer Screening for human papillomavirus (HPV) HEPATITIS C ANTIBODY Routine 07/11/2022 1:00 PM CDT from Last 3 Months or Most Recently Relevant to Health Maintenance Results * Mammo Post Clip Placement Right (02/28/2024 10:50 AM HANDLE ATTACHER) Anatomical Region Laterality Modality Breast Right Mammography 02/28/2024 11:3 1 AM HANDLE ATTACHER Addenda Addendum by Consuelo Altman MD on 02/29/2024 4:10 PM HANDLE ATTACHER Pathology report for MRI guided core needle [...] patient by the nursing staff of the [facility]. Electronically signed by: Consuelo Altman M.D. Impressions 02/28/2024 11:31 AM HANDLE ATTACHER Successful MRI guided biopsy of enhancement in the lumpectomy site of the right breast. Pathology report is pending. ASSESSMENT: Post-procedure mammogram for marker placement. Electronically signed by: Consuelo Atlman M.D. Narrative 02/28/2024 11:31 AM HANDLE ATTACHER MRI GUIDED CORE NEEDLE BIOPSY RIGHT BREAST, [...] made with a #11 blade. A 9-gauge [facility] vacuum-assisted biopsy needle was advanced to the [...] tolerated the procedure well, and left the [facility] in good condition, without evidence of immediate complication. us Nathan Fish MD IMG MAMMO PROCEDURES Edite d Result - Final * MRI Guided Breast Biopsy Right (02/28/2024 10:28 AM HANDLE ATTACHER) Anatomical Region Laterality Modality Breast Right Magnetic Resonan ce 02/28/2024 11:3 1 AM HANDLE ATTACHER Addenda Addendum by Consuelo Altman MD on 02/29/2024 4:10 PM HANDLE ATTACHER Pathology report for MRI guided core needle [...] patient by the nursing staff of the [facility]. Electronically signed by: Consuelo Altman M.D. Impressions 02/28/2024 11:31 AM HANDLE ATTACHER Successful MRI guided biopsy of enhancement in the lumpectomy site of the right breast. Pathology report is pending. ASSESSMENT: Post-procedure mammogram for marker placement. Electronically signed by: Consuelo Altman M.D. Narrative 02/28/2024 11:31 AM HANDLE ATTACHER MRI GUIDED CORE NEEDLE BIOPSY RIGHT BREAST, [...] made with a #11 blade. A 9-gauge [facility] vacuum-assisted biopsy needle was advanced to the [...] tolerated the procedure well, and left the [facility] in good condition, without evidence of immediate complication. us Nathan Fish MD [facility] [place] PROCEDURES Edited Result - Final * Surgical pathology (02/28/2024 10:01 AM HANDLE ATTACHER) Tissue (Breast biopsy, needle core) 02/28/2024 10:01 AM HANDLE ATTACHER Narrative PATHOLOGY [facility] - 02/29/2024 12:16 PM HANDLE ATTACHER [address] [address] Tele: Jocelin Browne MD - Assistant Activities Director Note to Patients: This report may contain [...] PATHOLOGY REPORT Patient Name: LATRICE TATE Address: [address] [place] [address] Gender: F : 1990 (Age: 34) Service: Location: , Hospital #: [id number] [place] [facility] [place] Taken: 02/28/2024 Received 02/28/2024 Reported: 02/29/2024 Physician(s): [facility] - Dr. Altman DIAGNOSIS: Breast, right breast abnormal enhancement, needle biopsy: - Hyalinized fibroadenoma - Focal fat necrosis [facility]/02/29/2024 12:16 Examining Pathologist: Mildred Gonzales M.D. Report [...] is entirely submitted in cassettes labeled A1-A3. [facility] MICROSCOPIC DESCRIPTION: Microscopic examination supports the above captioned diagnosis. There is no atypical hyperplasia or malignancy. Clerical Data Follows A; [id number] REPORT IMAGES AND/OR SCANNED DOCUMENTS ONLY VIEWABLE IN PDF FORMAT The immunohistochemical test(s) cited in this report, if any, was developed and its performance characteristics determined by [facility] Pathology Department. It has not been cleared or approved by the U.S. Food and Drug Administration. The FDA has determined that such clearance or approval is not necessary. This test is used for clinical purposes. It should not be regarded as investigational or for research. [facility] is certified under the Clinical Laboratory [...] part or completely in the following laboratories: [facility], [address], [place] [address] [facility], [address], [place] [address]. us Nathan Fish MD LAB PATHOLOGY ORDERABLES F inal Result PATHOLOGY [facility] Laboratory Receiving [address] [place], [place] [id number] * (ABNORMAL) Pap and HPV, reflex to [...] 09/20/2023 2:11 PM CDT Performed at: - [address] [id number] Procurement Agent: Yumiko Hubbard MD, Phone: [phone] Performed at: 02 - [address] [id number] Procurement Agent: Yumiko Hubbard MD, Phone: [phone] Specimen Comment: Source.............Cervix;Endocervix Specimen Comment: No. of containers..01 ThinPrep Vial Shara Monreal MD LAB CYTOLOGY ORDERABLES F inal Result Performing Organization Address City/[facility]/ZIP Co de Phone Number [facility] - 01 LAB PEÑA 02 * Hepatitis C antibody (07/11/2022 1:00 PM CDT) Hep C Ab Nonreactive Nonreactive [facility] Comment: Interpretive Data Nonreactive: Antibodies to [...] GENERA L ORDERABLES Edited Result - Final [facility] [address] Department [place] [address] from Last 3 Months or Most Recently Relevant to Health Maintenance Insurance HMO HMO O Care Teams Storeroom Clerk Relationship Specialty Start Date End Date Petey York MD [address] [place] [address] PCP - General Family Medicine 03/01/22 Teofilo Triplett MD [address] [place] [address] Medical Oncologist/Gas Pumping Station Helper Hematology and Oncology 07/22/21 Arian Eaton MD [address] [place] [address] Consulting Physician Radiation Oncology 07/22/21 Nathan Fish MD [address] [facility] [address] [place] [address] Consulting Physician Surgical Oncology 07/28/21 Shara Monreal MD [address] [place] [address] Consulting Physician Obstetrics and Gynecology 07/28/21 Malorie Malcolm NP [address] [place] [address] Nurse Practitioner Surgery 12/22/21
--- OUTSIDE RECORDS SUMMARY | 2024-05-27 14:43 | XMS_ITS | Encounter Summary ---
Author Organization [facility] Address [address] [place] [address] Care Team Providers Care Senior Staff Psychologist Name Role Phone Ryan Metz MD Primary Care Provider [phone] Bhavna Ventura PA-C Primary Care Provider [phone] Petey York MD Primary Care Provider [phone] Encounter Details Date Type Department Care Team (Latest Contact Info) Description 01/16/2018 Abstract [facility] Franco Roland MD Social History [...] documented as of this encounter Care Teams Senior Staff Psychologist Relationship Specialty Start Date End Date Ryan Metz MD [address] [place] [phone] PCP - General INTERNAL MEDICINE 10/27/18 12/23/21 Bhavna Ventura PA-C [address] [place], [place] [address] [place] [address] PCP - General PHYSICIAN LEAK DETECTOR 12/24/21 01/16/23 Petey York MD [facility] [place] [address] PCP - General FAMILY PRACTICE 01/17/23 documented as of this encounter
--- OUTSIDE RECORDS SUMMARY | 2024-05-27 14:43 | XMS_ITS ---
Author Organization [facility] Address [address] [place] [address] Care Team Providers Care Parent Partner Name Role Phone Chela PRAJAPATI, Dr Angelo Primary Care Provider Nita Naqvi Unavailable [phone] REASON FOR VISIT SCIT - Traditional Schedule Allergy Immunotherapy Encounters Encounter Location Date Provider Diagnosis [address] [address] 05/15/2024 Nita Conrad Allergic rhinitis du e [...] Provider Name:Nita felton, 05/30/2024 05:00:00 PM, [address] [place], [address], Provider Name:Nita felton, 06/12/2024 05:00:00 PM, [address] [place], [address], Provider Name:Nita felton, 06/25/2024 05:00:00 PM, [place], [address], Progress Notes * Latrice BRAYDOB:1990 (34 yo F)Acc No.[id number]:05/15/2024 SCIT-Aeroallergen Patient: Latrice ROMERO Provider: James Conrad MD :1990 A ge:34 Y S ex:Female Date:05/15/2024 Address:[address] [place], [place] [phone] Pcp:Dr Petey York MD Subjective: * Chief [...] Information: * Visit Code: * Procedure Codes: 80005 IMMUNOTHERAPY INJECTIONS. * RECORDIST Sign off status: Completed true * Provider: James Conrad MD Date: 05/15/2024 Generated for Ortiz randall/Nina/Candiitting on: 05/27/2024 02:42 PM CDT History and Physical Notes * [...]
--- OUTSIDE RECORDS SUMMARY | 2024-05-27 14:43 | XMS_ITS | Encounter Summary ---
Author Organization [facility] Address [address] [place] [address] Care Team Providers Care Desktop Manager Name Role Phone Petey York MD Primary Care Provider [phone] Encounter Details Date Type Department Care Team (Latest Contact Info) Description 05/27/2024 Travel Social History Tobacco Use Types Packs/Day Years [...] on filedocumented in this encounter Care Teams Desktop Manager Relationship Specialty Start Date End Date Petey York MD [address] [place] [address] PCP - General FAMILY PRACTICE 01/17/23 documented as of this encounter
--- OUTSIDE RECORDS SUMMARY | 2024-05-27 14:43 | XMS_ITS | Encounter Summary ---
Author Organization [facility] Address [address] [facility] [place] [address] Care Team Providers Care Pathology Laboratory Technologist Name Role Phone Ryan Metz MD Primary Care Provider [phone] Encounter Details Date Type Department Care Team (Late st Contact Info) Description 12/28/2023 Lab Requisition [facility] - Pathology Lab [address] [place] [address] Enrrique Gandara MD [address] [facility] [address] [place] [address] Illness, unspecified Social History Tobacco Use [...] unspecified documented in this encounter Care Teams Pathology Laboratory Technologist Relationship Specialty Start Date End Date Ryan Metz MD [address] [place] [address] PCP - General 05/15/17 documented as of this encounter
--- OUTSIDE RECORDS SUMMARY | 2024-05-27 14:43 | XMS_ITS | Clinical Summary ---
Author Organization [facility] Address [address] [place] [address] Care Team Providers Care Wallpaper Inspector Name Role Phone Ryan Metz MD Primary Care Provider [phone] Source Comments [facility] Affiliates and Associated Physician Practices is amultiple site organization consisting of ambulatory clinics and hospital sitesin [place], [place], [place] and [place]. This disclosure is being madepursuant to the Care Everywhere program and may not contain all information available regarding this patient. Last updated 17.[facility] Allergies Active Allergy Reactions Criticality Noted Date [...] 6:14 PM 12/14/2017 4:52 PM Care Teams Wallpaper Inspector Relationship Specialty Start Date End Date Ryan Metz MD [address] [place] [id number] PCP - General 05/15/17
--- OUTSIDE RECORDS SUMMARY | 2024-05-27 14:43 | XMS_ITS | Encounter Summary ---
Author Organization [facility] Address [address] [place] [address] Care Team Providers Care Prizer Hand Name Role Phone Petey York MD Primary Care Provider [phone] Reason for Referral * Imaging (Emergency) - New Request Specialty Diagnoses / Procedures Referred By Contmerline t Referred To Contact RADIOLOGY Procedures CT ABD+PEL W IV CON ONLY Tamela Barreto MD [address] [place] [address] Phone: tel: fax: Referral ID Status Reason Start Date Expiration Date V isits Requested Visits Authorized [id number] New Request 05/27/2024 05/27/2025 1 1 Reason for Visit * Reason Comments Abdominal Pain Encounter Details Date Type Department Care Team (Late st Contact Info) Description 05/27/2024 1:49 PM CDT - Present Emergency [facility] Emergency Room [id number] [place] [address] Tamela Barreto MD [address] [place] [address] Abdominal Pain Social History Tobacco Use Types Packs/Day Years [...] on file documented as of this encounter Last Filed Vital Signs Vital Sign Reading [...] Mass Index 36.05 05/27/2024 1:55 PM CDT documented in this encounter ED Notes * Elaine Perea RN - 05/27/2024 1:52 PM CDT Patient to ED c.o right sided abd pain after a gallbladder surgery on Monday. Patient states she has had pain since. Patient presents to the ED crying out in pain, needing assistance out of the vehicle and into the patient bed. Patient reports she feels as if she is not emptying her bladder at thistime. Patient states I just need you to fucking knock me out now please. No other c/o at this time. documented in this encounter Plan of Treatment Pending Results Name Type Priority Associated Diagnoses Date /Time CBC W/DIFF AUTOMATED Lab STAT 05/11 2:38 PM CDT PROTIME/INR, VENOUS Lab STAT 05/27 2:38 PM CDT PARTIAL THROMBOPLASTIN TIME,PTT Lab STAT 05/27/2024 2:38 PM CDT COMPREHENSIVE METABOLIC PANEL Lab STAT 05/27/2024 2:38 PM CDT LIPASE Lab STAT 05/27/2024 2:3 8 PM CDT Scheduled Orders Name Type Priority Associated Diagnoses Orde r Schedule CBC W/DIFF AUTOMATED Lab STAT Once for 1 Occurrences starting 05/27/2024 until 05/27/2024 PROTIME/INR, VENOUS Lab STAT Once for 1 Occurrences starting 05/27/2024 until 05/27/2024 PARTIAL THROMBOPLASTIN TIME,PTT Lab STAT Once for 1 Occur rences starting 05/27/2024 until 05/27/2024 COMPREHENSIVE METABOLIC PANEL Lab STAT Once for 1 Occur rences starting 05/27/2024 until 05/27/2024 LIPASE Lab STAT Once for 1 Occ urrences starting 05/27/2024 until 05/27/2024 URINALYSIS, AUTO, COMPLETE Lab Routine STAT for 1 Occurrences starting 05/27/2024 until 05/27/2024 TEST URINE Lab STAT Once for 1 Occurrences starting 05/27/2024 until 05/27/2024 CT ABD+PEL W IV CON ONLY CT STAT One time imaging One time imaging for 1 Occurrences starting 05/27/2024 until 05/27/2024 documented as of this encounter Visit Diagnoses Not on filedocumented in this encounter Administered Medications Inactive Administered Medications - up to 3 most recent administrations Medication Order MAR Action Action Date Dose Rate Site HYDROmorphone (DILAUDID) injection 1 mg 1 mg, Intravenous, Once, 1 dose, On Mon05/27/24 at 1430, Administer slowly over at least 2-3 minutes. Given 05/27/2024 2:26 PM CDT 1 mg ondansetron (ZOFRAN) injection 4 mg 4 mg, Intravenous, Once, 1 dose, On Mon05/27/24 at 1430, IV push over 2-5 minutes. Given 05/27/2024 2:24 PM CDT 4 mg sodium chloride 0.9% bolus infusion 1,000 mL 1,000 mL, Intravenous, Administer over 60 Minutes, Once, 1 dose, On Mon05/27/24 at 1415 New Bag 05/27/2024 2:23 PM CDT 1,000 mLs 1000 mL/hr documented in this encounter Active and Recently Administered Medications Times are shown in CDT. Scheduled Medication Order 05/25/2024 05/26/2024 05/27/2024 HYDROmorphone (DILAUDID) injection 1 mg (COMPLETED) 1 mg, Intravenous, Once, 1 dose, On Mon05/27/24 at 1430, Administer slowly over at least 2-3 minutes. 1426 (Given - Provid er: Elaine Perea RN) ondansetron (ZOFRAN) injection 4 mg (COMPLETED) 4 mg, Intravenous, Once, 1 dose, On Mon05/27/24 at 1430, IV push over 2-5 minutes. 1424 (Given - Provid er: Elaine Perea RN) sodium chloride 0.9% bolus infusion 1,000 mL 1,000 mL, Intravenous, Administer over 60 Minutes, Once, 1 dose, On Mon05/27/24 at 1415 1423 (New Bag - Prov ider: Elaine Perea RN)1523 (Due: Infusion Stop Time - Provider: Elaine Perea RN) documented in this encounter Care Teams Prizer Hand Relationship Specialty Start Date End Date Petey York MD [address] [place] [address] PCP - General FAMILY PRACTICE 01/17/23 documented as of this encounter
--- OUTSIDE RECORDS SUMMARY | 2024-05-27 14:43 | XMS_ITS | Clinical Summary ---
Author Organization [facility] Address [address] [place] [address] Care Team Providers Care Crotch Piece Baster Name Role Phone Uziel Teofilo Jones MD Unavailable [phone] Arian Eaton MD Unavailable [phone] Nathan Fish MD Unavailable [phone] Shara Monreal MD Unavailable [phone] Malorie Malcolm NP Unavailable [phone] Petey York MD Primary Care Provider [phone] Allergies Active Allergy Reactions Criticality Noted Date [...] tablet TAKE 1 TABLET(75 MCG) BY MOUTH SAP PP CONSULTANT BEFORE BREAKFAST 90 tablet 1 11/03/19 24 [...] (07/30/2021): Added automatically from request for surgery [id number] Malignant neoplasm 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, estrogen receptor negative 07/23/2021 Cancer Staging:Clinical stage from 07/20/2021:Stage IB(cT1c, cN0, cM0, G3, ER-, MN-, HER2-) - Signed by Arian Eaton MD on 07/30/2021 Pathologic stage from 02/10/2022:No Stage Recommended(ypT0, pN0(sn), cM0, GX, ER- , MN-, HER2-) - Signed by Arian Eaton MD on 03/09/2022 Endometriosis 10/22/2019 Overview (10/22/2019): Added automatically from request for surgery [id number] Pelvic and perineal pain 10/22/2019 Overview (10/22/2019): Added automatically from request for surgery [id number] Persistent proteinuria 10/25/2018 Recurrent UTI 10/25/2018 Asymptomatic microscopic hematuria 10/25/2018 Acute kidney injury 12/13/2017 Resolved Problems Problem Noted Date Diagnosed Date Resolved Date Post-operative state 02/22/2022 024 Encounters Date Type Department Care Team Description 05/06/2024 2:45 PM COBOL ENGINEER Office Visit [facility] [address] [place] [phone] Nathan Fish MD Malignant 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, estrogen receptor negative (HCC) (Primary Dx) 05/06/2024 2:00 PM COBOL ENGINEER Office Visit [facility] Radiation Oncology [facility] [place] [address] Arian Eaton MD Malignant 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, estrogen receptor negative (HCC) (Primary Dx) 05/06/2024 Orders Only [facility] [address] [facility] [address] [place] [address] Nathan Fish MD Invasive ductal carcinoma of breast, female, right (HCC) (Primary Dx); Malignant 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, estrogen receptor negative (HCC) 05/06/2024 Documentation [facility] [address] [place] [phone] Inessa [facility] RC 02/29/2024 Telephone [facility] - [facility] [address] [place] [address] [address] [place] [phone] Jocelin Jones, YANNA Follow-Up Call 24-48 Hours; Test Results 02/28/2024 10:30 AM COBOL ENGINEER - 02/28/2024 11:59 PM COBOL ENGINEER Hospital Encounter [facility] [address] [place] [phone] Abnormal MRI, breast Discharge Disposition: Discharge to home or self care 02/28/2024 7:24 AM COBOL ENGINEER - 02/28/2024 11:59 PM COBOL ENGINEER Hospital Encounter [facility] [address] [place] [phone] Abnormal MRI, breast Discharge Disposition: Discharge to [...] on file Legal Sex Female 12:06 AM COBOL ENGINEER Gender Identity Not on file Sexual Orientation Not on file Occupation Industry Job Start Date Job End Date [employer] Not on file Not on file Not on file Obstetrics History Para Term AB IAB SAB Ectopic Multiple Livin g Live Births 0 0 0 0 0 0 0 0 0 0 0 Last Filed Vital Signs Vital Sign Reading Time Taken Comments Blood Pressure 126/82 05/06/2024 1:56 PM COBOL ENGINEER Pulse 98 05/06/2024 1:56 PM COBOL ENGINEER Temperature 36.1 C (97 F) 05/06/2024 2:30 PM COBOL ENGINEER Respiratory Rate 18 05/06/2024 1:56 PM COBOL ENGINEER Oxygen Saturation 100% 05/06/2024 1:56 PM COBOL ENGINEER Inhaled Oxygen Concentration - - Weight 95.7 kg (211 lb) 05/06/2024 2:30 PM COBOL ENGINEER Height 162.6 cm (5' 4 ) 05/06/2024 2:30 PM COBOL ENGINEER Body Mass Index 36.22 05/06/2024 2:30 PM COBOL ENGINEER Plan of Treatment Health Maintenance Due Date [...] this topic Medical Devices Implanted Type Area Grants Manager Device Identifier Shelf Expiration Date Model / Serial / Lot Adaptics Magseed 18ga 7cm Marker Breast Biopsy [id number] Right: Breast Adaptics [id number] 12/10/2025 [id number] / / [id number] [employer] [facility] Trimark Second Marker Breast Biopsy Disposable Trimark Td 2s 13-Mr - [id number] Implanted:Qty: 1 on 02/28/2024 by Consuelo Altman MD at [facility] Right: Breast [employer] [id number] 06/13/2025 TRIMARK TD 2S 13-MR / / [id number] Explanted Type Area Grants Manager Device Identifier Shelf Expiration Date Model / Serial / Lot Bard Access Systems Powerport Isp Mri Airguard 8fr 1 Lumen Attachable Catheter Open Latex Free [id number] - [id number] Implanted:Qty: 1 on 08/06/2021 by Koffi Brandon MD at [facility] Explanted:Qty: 1 Right: Chest [employer] 09/09/2022 [id number] / / [id number] Procedures Procedure Name Priority Date/Time Associated Diagnosis Comments MAMM POST CLIP PLACEMENT RIGHT Schedule Routine, Read Routine (OP Routine) 02/28/2024 10:50 AM COBOL ENGINEER Abnormal MRI, breast MRI GUIDED BREAST BIOPSY RIGHT Schedule Routine, Read Routine (OP Routine) 02/28/2024 10:28 AM COBOL ENGINEER Abnormal MRI, breast SURGICAL PATHOLOGY Routine 02/28/2024 10:01 AM COBOL ENGINEER Abnormal MRI, breast PAP AND HPV, REFLEX TO HPV GENOTYPES Routine 09/18/2023 4:32 AM CDT Screening for cervical cancer Screening for human papillomavirus (HPV) HEPATITIS C ANTIBODY Routine 07/11/2022 1:00 PM CDT from Last 3 Months or Most Recently Relevant to Health Maintenance Results * Mammo Post Clip Placement Right (02/28/2024 10:50 AM COBOL ENGINEER) Anatomical Region Laterality Modality Breast Right Mammography 02/28/2024 11:3 1 AM COBOL ENGINEER Addenda Addendum by Consuelo Altman MD on 02/29/2024 4:10 PM COBOL ENGINEER Pathology report for MRI guided core needle [...] patient by the nursing staff of the [facility]. Electronically signed by: Consuelo Altman M.D. Impressions 02/28/2024 11:31 AM COBOL ENGINEER Successful MRI guided biopsy of enhancement in the lumpectomy site of the right breast. Pathology report is pending. ASSESSMENT: Post-procedure mammogram for marker placement. Electronically signed by: Consuelo Altman M.D. Narrative 02/28/2024 11:31 AM COBOL ENGINEER MRI GUIDED CORE NEEDLE BIOPSY RIGHT BREAST, [...] made with a #11 blade. A 9-gauge [facility] vacuum-assisted biopsy needle was advanced to [...] tolerated the procedure well, and left the [facility] in good condition, without evidence of immediate complication. us Nathan Fish MD IMG MAMMO PROCEDURES Edite d Result - Final * MRI Guided Breast Biopsy Right (02/28/2024 10:28 AM COBOL ENGINEER) Anatomical Region Laterality Modality Breast Right Magnetic Resonan ce 02/28/2024 11:3 1 AM COBOL ENGINEER Addenda Addendum by Consuelo Altman MD on 02/29/2024 4:10 PM COBOL ENGINEER Pathology report for MRI guided core needle [...] patient by the nursing staff of the [facility]. Electronically signed by: Consuelo Altman M.D. Impressions 02/28/2024 11:31 AM COBOL ENGINEER Successful MRI guided biopsy of enhancement in the lumpectomy site of the right breast. Pathology report is pending. ASSESSMENT: Post-procedure mammogram for marker placement. Electronically signed by: Consuelo Altman M.D. Narrative 02/28/2024 11:31 AM COBOL ENGINEER MRI GUIDED CORE NEEDLE BIOPSY RIGHT BREAST, [...] made with a #11 blade. A 9-gauge [facility] vacuum-assisted biopsy needle was advanced to [...] tolerated the procedure well, and left the [facility] in good condition, without evidence of immediate complication. us Nathan Fish MD IMG MRI PROCEDURES Edited Result - Final * Surgical pathology (02/28/2024 10:01 AM COBOL ENGINEER) Tissue (Breast biopsy, needle core) 02/28/2024 10:01 AM COBOL ENGINEER Narrative PATHOLOGY [facility] - 02/29/2024 12:16 PM COBOL ENGINEER [address] [address] Tele: Jocelin Browne MD - Saw Man Note to Patients: This report may contain [...] PATHOLOGY REPORT Patient Name: LATRICE TATE Address: [address] [place] [address] Gender: F : 1990 (Age: 34) Service: Location: , Hospital #: [id number] Patient Type: [facility] ANCILLARY Taken: 02/28/2024 Received 02/28/2024 Reported: 02/29/2024 [...] is entirely submitted in cassettes labeled A1-A3. [facility]: Microscopic examination supports the above captioned diagnosis. There is no atypical hyperplasia or malignancy. Clerical Data Follows A; [id number] REPORT IMAGES AND/OR SCANNED DOCUMENTS ONLY VIEWABLE IN PDF FORMAT The immunohistochemical test(s) cited in this report, if any, was developed and its performance characteristics determined by [facility] Pathology Department. It has not been cleared or approved by the U.S. Food and Drug Administration. The FDA has determined that such clearance or approval is not necessary. This test is used for clinical purposes. It should not be regarded as investigational or for research. [facility] Laboratory is certified under the Clinical [...] part or completely in the following laboratories: [facility], [address], [place] [address] [facility], [address] [facility] [address], [place] [address]. Nathan Fish MD LAB PATHOLOGY ORDERABLES F inal Result PATHOLOGY [facility] Laboratory Receiving [address] [place], [place] [id number] * (ABNORMAL) Pap and HPV, reflex to [...] 09/20/2023 2:11 PM CDT Performed at: - [address] [id number] Fibrous Plasterer: Yumiko Hubbrad MD, Phone: [phone] Performed at: - [address] [id number] Fibrous Plasterer: Yumiko Hubbard MD, Phone: [phone] Specimen Comment: Source.............Cervix;Endocervix Specimen Comment: No. of containers..01 ThinPrep Vial Shara Monreal MD LAB CYTOLOGY ORDERABLES F inal Result Performing Organization Address [facility]/ZIP Co de Phone Number [facility] - [facility] 02 * Hepatitis C antibody (07/11/2022 1:00 PM CDT) Hep C Ab Nonreactive Nonreactive [facility] Comment: Interpretive Data Nonreactive: Antibodies to [...] GENERA L ORDERABLES Edited Result - Final [facility] [address] Department [place] [address] from Last 3 Months or Most Recently Relevant to Health Maintenance [facility] [id number] [place], [place] [address] Care Teams Crotch Piece Baster Relationship Specialty Start Date End Date Petey York MD [address] [place], [place] [phone] PCP - General Family Medicine 03/01/22 Teofilo Triplett MD [address] [place] [address] Medical Oncologist/Roading Engineer Hematology and Oncology 07/22/21 Arian Eaton MD [address] [place] [address] Consulting Physician Radiation Oncology 07/22/21 Nathan Fish MD [address] [place] [address] Consulting Physician Surgical Oncology 07/28/21 Shara Monreal MD [address] [place], [place] [phone] Consulting Physician Obstetrics and Gynecology 07/28/21 Malorie Malcolm, LANEY [address] [place] [address] Nurse Practitioner Surgery 12/22/21
--- OUTSIDE RECORDS SUMMARY | 2024-05-27 14:43 | XMS_ITS ---
Author Organization [facility] Address [address] [place] [address] Care Team Providers Care Parcel Carrier Name Role Phone Chela PRAJAPATI, Dr Angelo Primary Care Provider Nita Naqvi Unavailable [phone] REASON FOR VISIT SCIT - Traditional Schedule Allergy Immunotherapy Encounters Encounter Location Date Provider Diagnosis [address] [address] 05/06/2024 Nita Conrad Allergic rhinitis du e [...] Provider Name:Nita felton, 05/30/2024 05:00:00 PM, [address] [place], [address], Provider Name:Nita felton, 06/12/2024 05:00:00 PM, [address] [place], [address], Provider Name:Nita felton, 06/25/2024 05:00:00 PM, [place], [address], Progress Notes * Latrice BRAYDOB:1990 (34 yo F)Acc No.[id number]:05/06/2024 SCIT-Aeroallergen Patient: Latrice ROMERO Provider: James Conrad MD :1990 A ge:34 Y S ex:Female Date:05/06/2024 Address:[address] [place], [place] [phone] Pcp:Dr Petey York MD Subjective: * Chief [...] Information: * Visit Code: * Procedure Codes: 84841 IMMUNOTHERAPY INJECTIONS. * Electronic signature of An Conrad MD on 05/27/2024 at 02:42 PM CDT Sign off status: Pending * Provider: James Conrad MD Date: 0 05/06/2024 Generated for Ortiz randall/Nina/Denisse on: 0 05/27/2024 02:42 PM CDT History and Physical [...]
--- OUTSIDE RECORDS SUMMARY | 2024-05-27 14:43 | XMS_ITS | Referral Summary ---
Author Organization [facility] Address [address] [facility] [address] Care Team Providers Care Utility Bill Complaints Investigator Name Role Phone Ryan Metz MD Primary Care Provider [phone] Source Comments [facility] Affiliates and Associated Physician Practices is amultiple site organization consisting of ambulatory clinics and hospital sitesin [place], [place], [place] and [place]. This disclosure is being madepursuant to the Care Everywhere program and may not contain all information available regarding this patient. Last updated 17.[facility] Allergies Active Allergy Reactions Criticality Noted Date [...] 6:14 PM 12/14/2017 4:52 PM Care Teams Utility Bill Complaints Investigator Relationship Specialty Start Date End Date Ryan Metz MD [address] [place] [address] PCP - General 05/15/17
--- OUTSIDE RECORDS SUMMARY | 2024-05-27 14:43 | XMS_ITS ---
Author Organization [facility] Address [address] [place] [address] Care Team Providers Care Biochemical Engineer Name Role Phone Uziel Teofilo Jones MD Unavailable [phone] Arian Eaton MD Unavailable [phone] Nathan Fish MD Unavailable [phone] Shara Monreal MD Unavailable [phone] Malorie Malcolm NP Unavailable Petey York MD Primary Care Provider [phone] Active Problems Problem Noted Date Diagnosed Date Breast pain, right 06/27/2022 Invasive ductal carcinoma of breast, female, rig ht 07/30/2021 Encounter for fitting and adjustment of vascular catheter 07/30/2021 Overview (07/30/2021): Added automatically from request for surgery [id number] Malignant neoplasm 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, estrogen receptor negative 07/23/2021 Cancer Staging:Clinical stage from 07/20/2021:Stage IB(cT1c, cN0, cM0, G3, ER-, CO-, HER2-) - Signed by Arian Eaton MD on 07/30/2021 Pathologic stage from 02/10/2022:No Stage Recommended(ypT0, pN0(sn), cM0, GX, ER- , CO-, HER2-) - Signed by Arian Eaton MD on 03/09/2022 Endometriosis 10/22/2019 Overview (10/22/2019): Added automatically from request for surgery [id number] Pelvic and perineal pain 10/22/2019 Overview (10/22/2019): Added automatically from request for surgery [id number] Persistent proteinuria 10/25/2018 Recurrent UTI 10/25/2018 Asymptomatic [...] from the original note were not included. [facility] [facility] [address] This Survivorship Care Plan is a cancer [...] Information: Primary Care Physician Petey York MD [phone] Keanu Fish [phone] Arian Eaton [phone] Teofilo Triplett [phone] Plastic Surgeon Other Providers Treatment Summary Cancer [...] Stage IB (cT1c, cN0, cM0, G3, ER-, CO-, HER2-) - Signed by Arian Eaton MD on 07/30/2021 - Pathologic stage from 02/10/2022: No Stage Recommended (ypT0, pN0(sn), cM0, GX, ER-, CO-, HER2-) -Signed by Arian Eaton MD on [...] equivalent: 238.218 mg/m2 (480 mg) Research Studies [id number] in REsults of Immune Checkpoint Inhibitor Tx (DiRECT):Prospective Study of Cancer Survivors Tx'd w anti-PD-1/antiPD-L1 Immunotherapy in a Community Oncology Setting Status On study Active Start Date 08/13/21 NCT [id number] Persistent symptoms or side effects that have [...] breast cancer could run in the family: Protestant heritage History of ovarian cancer in the [...] monitoring Every 3 months while on Herceptin ELECTRIC MOTOR ASSEMBLER: No care field marketing team leader to display Pap/pelvic exam (woman [...] Help learning to eat healthier, call the electric motorman at: [facility] . Have an active lifestyle, [...] Cancer.Net--http://www.cancer.net/survivorship Livestrong--http://www.livestrong.org/ Livestrong Care Plan--http://www.livestrongcareplan.org/ National Cancer [place]--http://www.cancer.gov/cancertopics/factsheet/therapy/followup National Cancer [place] Facing Forward: Life After Cancer Treatment--http://www.cancer.gov/cancertopics/coping/ijra-eyobc-fjsocjpea National Coalition for Cancer Survivorship--http://www.canceradvocacy.org/ National Comprehensive Cancer Network-http://www.nccn.org/patients/resources NCCS Cancer Survival Toolbox-- http://www.canceradvocacy.org/toolbox/ CancerCare--http://www.cancercare.org/ Healthcare.gov (insurance marketplace)-- https://www.healthcare.gov/ Cancer and Careers--http://www.cancerandcareers.org/en [place] Cancer Society:The Survivorship Center--http://www.cancer.org/survivorshipcenter Cancer Support Community- http://www.cancersupportcommunity.org/ Cancer Rehabilitation--www.[facility]/rehab Resolved Problems Problem Noted Date Diagnosed Date Resolved Date Post-operative state 02/22/2022 024
--- OUTSIDE RECORDS SUMMARY | 2024-05-27 14:43 | XMS_ITS | Encounter Summary ---
Author Organization [facility] Address [address] [place] [address] Care Team Providers Care Medium Cycle Salesperson Name Role Phone Ryan Metz MD Primary Care Provider [phone] Encounter Details Date Type Department Care Team (Late st Contact Info) Description 12/14/2023 Lab Requisition [facility] - DermPath Lab [address] [facility] [place] [phone] Fina Cueto MD [address] [facility] [address] [place] [address] Social History Tobacco Use Types [...] AM CDT) Case Report Dermatopathology Report Case: [id number] Authorizing Provider: Fina Cueto MD Collected: 12/14/2023 12:00 AM Ordering Location: [facility] - Received: 12/18/2023 [...] The specimen is serially sectioned and a patient accounting representative section is submitted in cassette 1. [...] determined by the Dermatopathology Laboratory at [facility], directed by Dr. Tigre Fenton. These tests need not be, and therefore are not, approved by the [place] Food and Drug Administration. The tests are used for clinical purposes. Billing Codes Specimen Charges Stain Charges 24047 1 69550 39048 60945 96022 92318 13803 1 1 1 1 1 1 4 3:57 PM CDT DERMATOPATHOLOGY LABORATORY Embedded Images 4 3:57 PM CDT DERMATOPATHOLOGY LABORATORY Pathology/Cytolog y TISSUE SPECIMEN FROM SKIN / Unknown 12/14/2023 12/18/2023 8:49 AM CDT Fina Cueto MD LAB - PATHOLOGY/CYTO LOGY ORDERABLES DERMATOPATHOLOGY LABORATORY [facility] - Department of Dermatology [address], [address] [phone] documented in this encounter Visit Diagnoses Not on filedocumented in this encounter Care Teams Medium Cycle Salesperson Relationship Specialty Start Date End Date Ryan Metz MD [address] [place] [address] [place] [address] PCP - General 05/15/17 documented as of this encounter
--- OUTSIDE RECORDS SUMMARY | 2024-05-27 14:43 | XMS_ITS | Patient Health Summary ---
Author Organization [facility] Address [address] [place] [address] Care Team Providers Care Hoseman Name Role Phone Ryan Metz MD Primary Care Provider [phone] Note from [facility],non-owned Affiliates and Associated Physician Practices is amultiple site organization consisting of ambulatory clinics and hospital sitesin [place], [place], [place] and [place]. This disclosure is being madepursuant to the Care Everywhere program and may not contain all information available regarding this patient. Last updated 17.[facility] Allergies * Doxycycline(Nausea and/or Vomiting) Medications [...] AM CDT) Case Report Dermatopathology Report Case: [id number] Authorizing Provider: Fina Cueto MD Collected: 12/14/2023 12:00 AM Ordering Location: [facility] - Received: 12/18/2023 08:49 AM DermPath Lab Pathologist: Desi Doan MD Specimen: Skin, under right breast 3:57 PM CDT DERMATOPATHOLOGY LABORATORY Final Diagnosis Specimen A. SKIN, under right breast: VASCULAR PROLIFERATION, SUPERFICIAL PORTIONS OF (D48.5) (see microscopic description and comment) 3:57 PM [facility][NOTE 3] DERMATOPATHOLOGY LABORATORY Clinical History Cyst vs dermatofibroma, r/o other 3:57 PM [facility][NOTE 3] DERMATOPATHOLOGY LABORATORY Gross Description Specimen A: Received is one formalin filled container labeled with the patient's name and designated under right breast. The specimen consists of a 3x3x4 mm piece of skin. The specimen is serially sectioned and a floor representative section is submitted in cassette 1. Jar 1. 3:57 PM [facility][NOTE 3] DERMATOPATHOLOGY LABORATORY Microscopic Description Specimen A. SKIN, [...] Dr. Dai Fenton, who agrees. 3:57 PM [facility][NOTE 3] DERMATOPATHOLOGY LABORATORY Disclaimer An external and internal positive and negative controls are appropriate for the histochemical, immunohistochemical and immunofluorescence stain(s) in this case (if any), except where stated explicitly. The performance characteristics of the stain(s) cited in this report were developed and its performance characteristic determined by the Dermatopathology Laboratory at [facility], directed by Dr. Tigre Fenton. These tests need not be, and therefore are not, approved by the [place] Food and Drug Administration. The tests are used for clinical purposes. Billing Codes Specimen Charges Stain Charges 46394 1 38665 64538 75834 57050 39524 84956 1 1 1 1 1 1 4 3:57 PM CDT DERMATOPATHOLOGY LABORATORY Embedded Images 4 3:57 PM CDT DERMATOPATHOLOGY LABORATORY Pathology/Cytolog y TISSUE SPECIMEN FROM SKIN / Unknown 12/14/2023 12/18/2023 8:49 AM CDT Fina Cueto MD LAB - PATHOLOGY/CYTO LOGY ORDERABLES DERMATOPATHOLOGY LABORATORY [facility] - Department of Dermatology [address], [address] [phone] * US KIDNEY WITH DOPPLER (12/14/2017 9:02 AM CDT) Anatomical Region Laterality Modality Ultrasound 12/14/2017 9:17 AM CDT Impressions 12/14/2017 12:48 PM CDT IMPRESSION: 1. No ultrasonographic evidence of pyelonephritis. 2. Patent renal vasculature. Dictated by Subha Marquez MD (resident care director). This report was approved by Subha Marquez [...] renal vasculature. Dictated by Subha Marquez MD (resident care director). This report was approved by Subha Marquez on 12/14/2017 10:01 AM . I, Dr. KAROL ALLRED M.D. have personally reviewed and interpretedthis examination/study. This report was electronically signed by KAROL ALLRED M.D. on 12/14/2017 12:48 PM . Roderick Cintron MD US ORDERABLES * (ABNORMAL) CBC W/O DIFFERENTIAL (12/14/2017 3:27 AM CDT) WBC 7.5 3.5 - 10.5 10 3/uL 12/14/2017 3:49 AM [facility] RBC 3.69(L) 3.90 - 5.00 10 6/uL 12/14/2017 3:49 AM [facility] Hemoglobin 10.9(L) 12.0 - 15.5 g/dL 12/14/2017 3:49 AM [facility] Hematocrit 32.0(L) 35.0 - 45.0 % 12/14/2017 3:49 AM [facility] MCV 86.7 81.0 - 97.0 fL 12/14/2017 3:49 AM [facility] MCH 29.5 28.0 - 34.0 pg 12/14/2017 3:49 AM [facility] MCHC 34.1 32.0 - 36.0 g/dL 12/14/2017 3:49 AM [facility] Platelet Count 226 150 - 400 10 3/uL 12/14/2017 3:49 AM [facility] RDW-SD 39.7 36.0 - 50.0 fL 12/14/2017 3:49 AM [facility] RDW-CV 12.4 11.2 - 14.8 % 12/14/2017 3:49 AM [facility] MPV 9.6 9.3 - 12.8 fL 12/14/2017 3:49 AM [facility] Blood BLOOD SPECIMEN / Unknown Lab Venipuncture / Unknown 12/14/2017 3:27 AM CDT 12/14/2017 3:45 AM T Roderick Cintron MD LAB - HEMATOLOGY ORD ERABLES [facility] [address] [phone] * (ABNORMAL) BASIC METABOLIC PANEL (CALCIUM TOTAL) (12/14/2017 3:27 AM CDT) BUN 14 7 - 26 mg/dL 12/14/2017 4:09 AM [facility] Creatinine 1.3(H) 0.6 - 1.2 mg/dL 12/14/2017 4:09 AM [facility] Sodium 140 136 - 145 mmol/L 12/14/2017 4:09 AM [facility] Potassium 3.8 3.5 - 4.5 mmol/L 12/14/2017 4:09 AM [facility] Chloride 110(H) 98 - 107 mmol/L 12/14/2017 4:09 AM [facility] CO2 22 22 - 29 mmol/L 12/14/2017 4:09 AM [facility] Glucose 101 70 - 115 mg/dL 12/14/2017 4:09 AM [facility] Calcium 8.7 8.4 - 10.2 mg/dL 12/14/2017 4:09 AM [facility] Anion Gap 12 8 - 18 12/14/2017 4:09 AM [facility] BUN/Creatinine Ratio 11 7 - 23 12/14/2017 4:09 AM [facility] Osmolality Calculated 291 270 - 300 mOsm/kg 12/14/2017 4:09 AM [facility] eGFR 50(L) >60 mL/min/1.7 3 m2 12/14/2017 4:09 AM [facility] Blood BLOOD SPECIMEN / Unknown Lab Venipuncture / Unknown 12/14/2017 3:27 AM CDT 12/14/2017 3:44 AM CDT Roderick Cintron MD LAB - CHEMISTRY [place] [facility]PTA [address] [phone] * HCG URINE QUALITATIVE (12/13/2017 8:38 PM CDT) Test Urine Negative Negative 12/13/2017 8:44 PM T [facility] Urine URINE / Unknown Collection / Unknown 12/13/2017 8:38 PM CDT 12/13/2017 8:38 PM CDT Yady Esquivel DO LAB - URINALY SIS ORDERABLES Performing Organization Address City/[facility]/ZIP Co de Phone Number [address] [phone] * SODIUM URINE RANDOM (12/13/2017 8:37 PM CDT) Sodium Urine 120 Not Established mmol/L 12/13/2017 9:09 PM CDT [facility] Urine URINE SPECIMEN OBTAINED BY CLEAN CATCH PROCEDURE / Unknown Collection / Unknown 12/13/2017 8:37 PM CDT 12/13/2017 8:37 PM CDT Roderick Cintron MD LAB - URINE CHEMISTR Y ORDERABLES [address] [phone] * UREA NITROGEN URINE RANDOM (12/13/2017 8:37 PM CDT) Urea Nitrogen Random Urine 202 Not Established mg/dL 12/13/2017 9:09 PM CDT [facility] Urine URINE SPECIMEN OBTAINED BY CLEAN CATCH PROCEDURE / Unknown Collection / Unknown 12/13/2017 8:37 PM CDT 12/13/2017 8:37 PM CDT Roderick Cintron MD LAB - URINE CHEMISTR Y ORDERABLES Performing Organization Address City/[facility]/ZIP Co de Phone Number [address] [phone] * POTASSIUM URINE RANDOM (12/13/2017 8:37 PM CDT) Potassium Urine 10 Not Established mmol/L 12/13/2017 9:09 PM CDT [facility] Urine URINE SPECIMEN OBTAINED BY CLEAN CATCH PROCEDURE / Unknown Collection / Unknown 12/13/2017 8:37 PM CDT 12/13/2017 8:37 PM CDT Roderick Cintron MD LAB - URINE CHEMISTR Y ORDERABLES Performing Organization Address [facility]/ZIP Co de Phone Number [address] [phone] * OSMOLALITY URINE (12/13/2017 8:37 PM CDT) Osmolality Urine 342 50 - 1,200 mOsm/kg 12/13/2017 9:01 PM CDT [facility] Urine URINE SPECIMEN OBTAINED BY CLEAN CATCH PROCEDURE / Unknown Collection / Unknown 12/13/2017 8:37 PM CDT 12/13/2017 8:37 PM CDT Roderick Cintron MD LAB - URINE CHEMISTR Y ORDERABLES Performing Organization Address City/[facility]/ZIP Co de Phone Number [address] [phone] * CREATININE URINE RANDOM (12/13/2017 8:37 PM CDT) Creatinine Urine 40 Not Established mg/dL 12/13/2017 9:21 PM T [facility] Urine URINE SPECIMEN OBTAINED BY CLEAN CATCH PROCEDURE / Unknown Collection / Unknown 12/13/2017 8:37 PM CDT 12/13/2017 8:37 PM CDT Roderick Cintron MD LAB - URINE CHEMISTR Y ORDERABLES Performing Organization Address City/[facility]/ZIP Co de Phone Number [address] [phone] * (ABNORMAL) CBC W AUTO DIFFERENTIAL (12/13/2017 7:17 PM CDT) WBC 6.9 3.5 - 10.5 10 3/uL 12/13/2017 7:50 PM [facility] RBC 3.77(L) 3.90 - 5.00 10 6/uL 12/13/2017 7:50 PM [facility] Hemoglobin 11.1(L) 12.0 - 15.5 g/dL 12/13/2017 7:50 PM [facility] Hematocrit 33.4(L) 35.0 - 45.0 % 12/13/2017 7:50 PM [facility] MCV 88.6 81.0 - 97.0 fL 12/13/2017 7:50 PM [facility] MCH 29.4 28.0 - 34.0 pg 12/13/2017 7:50 PM [facility] MCHC 33.2 32.0 - 36.0 g/dL 12/13/2017 7:50 PM [facility] Platelet Count 223 150 - 400 10 3/uL 12/13/2017 7:50 PM [facility] RDW-SD 40.8 36.0 - 50.0 fL 12/13/2017 7:50 PM [facility] RDW-CV 12.7 11.2 - 14.8 % 12/13/2017 7:50 PM [facility] MPV 9.8 9.3 - 12.8 fL 12/13/2017 7:50 PM [facility] Neutrophils % 61.6 35.0 - 70.0 % 12/13/2017 7:50 PM [facility] Lymphocytes % 29.8 19.7 - 55.1 % 12/13/2017 7:50 PM [facility] Monocytes % 6.4 3.0 - 15.0 % 12/13/2017 7:50 PM [facility] Eosinophils % 1.9 0.0 - 6.0 % 12/13/2017 7:50 PM [facility] Basophil % 0.3 0.0 - 1.5 % 12/13/2017 7:50 PM [facility] Neutrophils Absolute 4.3 1.6 - 7.0 10 3/uL 12/13/2017 7:50 PM [facility] Lymphocyte Absolute 2.1 0.8 - 2.9 10 3/uL 12/13/2017 7:50 PM [facility] Monocytes Absolute 0.44 0.14 - 0.66 10 3/uL 12/13/2017 7:50 PM [facility] Eosinophils Absolute 0.13 0.00 - 0.22 10 3/uL 12/13/2017 7:50 PM [facility] Basophils Absolute 0.02 0.00 - 0.06 10 3/uL 12/13/2017 7:50 PM [facility] Immature Granulocytes % 0.1 0.0 - 1.0 % 12/13/2017 7:50 PM [facility] Blood BLOOD SPECIMEN / Unknown Lab Venipuncture / Unknown 12/13/2017 7:17 PM CDT 12/13/2017 7:45 PM CDT Roderick Cintron MD LAB - HEMATOLOGY ORD ERABLES [facility] [address] [phone] * (ABNORMAL) COMPREHENSIVE METABOLIC PANEL (12/13/2017 7:17 PM CDT) BUN 15 7 - 26 mg/dL 12/13/2017 8:07 PM [facility] Creatinine 1.6(H) 0.6 - 1.2 mg/dL 12/13/2017 8:07 PM [facility] Sodium 141 136 - 145 mmol/L 12/13/2017 8:07 PM [facility] Potassium 3.4(L) 3.5 - 4.5 mmol/L 12/13/2017 8:07 PM [facility] Chloride 110(H) 98 - 107 mmol/L 12/13/2017 8:07 PM [facility] CO2 20(L) 22 - 29 mmol/L 12/13/2017 8:07 PM [facility] Glucose 105 70 - 115 mg/dL 12/13/2017 8:07 PM [facility] Calcium 9.1 8.4 - 10.2 mg/dL 12/13/2017 8:07 PM [facility] Protein Total 6.4 6.0 - 8.3 g/dL 12/13/2017 8:07 PM [facility] Albumin 2.8(L) 3.4 - 5.0 g/dL 12/13/2017 8:07 PM [facility] Bilirubin Total 0.3 0.2 - 1.2 mg/dL 12/13/2017 8:07 PM [facility] Alkaline Phosphatase 47 40 - 150 Units/L 12/13/2017 8:07 PM [facility] ALT 7 0 - 55 Units/L 12/13/2017 8:07 PM [facility] AST 11 5 - 34 Units/L 12/13/2017 8:07 PM [facility] Anion Gap 14 8 - 18 12/13/2017 8:07 PM [facility] BUN/Creatinine Ratio 9 7 - 23 12/13/2017 8:07 PM CDT [facility] Osmolality Calculated 293 270 - 300 mOsm/kg 12/13/2017 8:07 PM CDT [facility] Albumin/Globulin Ratio 0.8(L) 1.1 - 2.3 12/13/2017 8:07 PM CDT [facility] eGFR 39(L) >60 mL/min/1.7 3 m2 12/13/2017 8:07 PM CDT [facility] Blood BLOOD SPECIMEN / Unknown Lab Venipuncture / Unknown 12/13/2017 7:17 PM CDT 12/13/2017 7:45 PM CDT Roderick Cintron MD LAB - CHEMISTRY [facility]PTA [address] [phone] * PHOSPHORUS BLOOD (12/13/2017 7:17 PM CDT) Phosphorus 3.5 2.3 - 4.7 mg/dL 12/13/2017 8:05 PM CDT [facility] Blood BLOOD SPECIMEN / Unknown Lab Venipuncture / Unknown 12/13/2017 7:17 PM CDT 12/13/2017 7:45 PM CDT Roderick Cintron MD LAB - CHEMISTRY [facility] GUPTA Performing Organization Address City/[facility]/ZIP Co de Phone Number [address] [phone] * MAGNESIUM BLOOD (12/13/2017 7:17 PM CDT) Magnesium 1.8 1.6 - 2.6 mg/dL 12/13/2017 8:07 PM CDT [facility] Blood BLOOD SPECIMEN / Unknown Lab Venipuncture / Unknown 12/13/2017 7:17 PM CDT 12/13/2017 7:45 PM CDT Roderick Cintron MD LAB - [place] [address], [facility] [phone] * LACTIC ACID BLOOD (12/13/2017 7:17 PM CDT) [facility] Lactic Acid-Stat 1.5 0.5 - 2.2 mmol/L 12/13/2017 8:03 PM CDT [facility] Blood BLOOD SPECIMEN / Unknown Lab Venipuncture / Unknown 12/13/2017 7:17 PM CDT 12/13/2017 7:45 PM CDT Roderick Cintron MD LAB - [place] [address], [facility] [phone] * CK BLOOD (12/13/2017 7:17 PM CDT) [facility] CK Total 52 30 - 200 Units/L 12/13/2017 8:07 PM CDT [facility] Blood BLOOD SPECIMEN / Unknown Lab Venipuncture / Unknown 12/13/2017 7:17 PM CDT 12/13/2017 7:45 PM CDT Roderick Cintron MD LAB - [place] [address], [facility] [phone] * CULTURE BLOOD (12/13/2017 7:16 PM CDT) [facility] Culture No growth day 5 [place] 12/18/2017 11:31 PM CDT [facility] [employer] MICROBIOLOGY Blood PERIPHERAL BLOOD / Unknown Lab Venipuncture / Unknown 12/13/2017 7:16 PM CDT 12/13/2017 7:45 PM CDT Roderick Cintron MD LAB - MICROBIOLOGY O RDERABLES [facility] MICROBIOLOGY [address] [place] [address], [facility] [phone] * (ABNORMAL) URINALYSIS W/MICROSCOPIC NO CULTURE (12/13/2017 6:24 PM [facility][NOTE 3]) Color UA Yellow Straw, Yellow, Colorless, Light Yellow 12/13/2017 6:33 PM [facility] Clarity UA Clear Clear 12/13/2017 6:33 PM [facility] Specific Douglas UA 1.006 1.001 - 1.030 12/13/2017 6:33 PM [facility] pH UA 5.5 5.0 - 8.0 12/13/2017 6:33 PM [facility] Protein UA Negative <=20 mg/dL 12/13/2017 6:33 PM [facility] Glucose UA Negative Negative mg/dL 12/13/2017 6:33 PM [facility] Ketone UA Negative Negative mg/dL 12/13/2017 6:33 PM [facility] Bilirubin UA Negative Negative mg/dL 12/13/2017 6:33 PM [facility] Blood UA Moderate(A) Negative 12/13/2017 6:33 PM [facility] Nitrite UA Negative Negative 12/13/2017 6:33 PM [facility] Leukocyte Esterase Negative Negative 12/13/2017 6:33 PM [facility] Urobilinogen UA <2.0 <2.0 mg/dL 8 6:33 PM [facility] RBC UA 2 0 - 8 /HPF 12/13/2017 6:33 PM [facility] WBC UA 1 0 - 2 /HPF 12/13/2017 6:33 PM [facility] Bacteria UA Rare Rare, Occasional, None /HPF 12/13/2017 6:33 PM [facility] Squamous Epithelial Cells UA <1 0 - 1 /HPF 12/13/2017 6:33 PM [facility] Mucus UA Rare(A) None /LPF 12/13/2017 6:33 PM [facility] Urine URINE SPECIMEN OBTAINED BY CLEAN CATCH PROCEDURE / Unknown Collection / Unknown 12/13/2017 6:24 PM CDT 12/13/2017 6:28 PM T Roderick Cintron MD LAB - URINALYSIS ORD ERABLES [facility] [address] [place] [address], [facility] [phone] * CULTURE URINE (12/13/2017 6:24 PM CDT) Culture Urine No growth (<100 CFU/mL) [place] 12/15/2017 6:[address] [facility] MICROBIOLOGY Urine URINE SPECIMEN OBTAINED BY CLEAN CATCH PROCEDURE / Unknown Collection / Unknown 12/13/2017 6:24 PM CDT 12/13/2017 6:28 PM CDT Roderick Cintron MD LAB - MICROBIOLOGY O RDERABLES Performing Organization Address City/[facility]/ZIP Co de Phone Number [facility] MICROBIOLOGY [address] [place], [place] [address], [facility] [phone] Care Teams Hoseman Relationship Specialty Start Date End Date Ryan Metz MD [address] [place] [id number] PCP - General 05/15/17
--- OUTSIDE RECORDS SUMMARY | 2024-05-27 15:42 | XMS_ITS | Encounter Summary ---
Author Organization [facility] Address [address] [place] [address] Care Team Providers Care Bead Forming Machine Operator Name Role Phone Petey York MD Primary Care Provider [phone] Catalino Koch MD Unavailable Bhavna VenturaC Primary Care Provider [phone] Encounter Details Date Type Department Care Team (Late st Contact Info) Description 10/13/2023 engageSimply Message Enc [facility] Family & Internal Medicine [facility] [id number] [place] [phone] Rebekah Riley PA [address] [place] [address] Antibiotics/yeast Social History Tobacco Use Types [...] on filedocumented in this encounter Care Teams Bead Forming Machine Operator Relationship Specialty Start Date End Date Petey York MD [facility] [place] [address] PCP - General FAMILY PRACTICE 01/17/23 05/26/24 Bhavna Ventura PA-C [address] [place], [place] [address] [place] [address] PCP - General PHYSICIAN PODIATRIC MEDICINE PROFESSOR 05/27/24 Catalino Koch MD [address] [facility] [address] [place] [address] GENERAL SURGERY 05/27/24 documented as of this encounter
--- OUTSIDE RECORDS SUMMARY | 2024-05-27 15:42 | XMS_ITS | Encounter Summary ---
Author Organization [facility] Address [address] [facility] [place] [address] Care Team Providers Care Ham Doctor Name Role Phone Ryan Metz MD Primary Care Provider [phone] Encounter Details Date Type Department Care Team (Late st Contact Info) Description 12/28/2023 Lab Requisition [facility] - Pathology Lab [address] [place] [address] Enrrique Gandara MD [address] [facility] [address] [place] [id number] Illness, unspecified Social History Tobacco Use [...] unspecified documented in this encounter Care Teams Ham Doctor Relationship Specialty Start Date End Date Ryan Metz MD [address] [place] [address] PCP - General 05/15/17 documented as of this encounter
--- OUTSIDE RECORDS SUMMARY | 2024-05-27 15:42 | XMS_ITS | Encounter Summary ---
Author Organization [facility] Address [address] [place] [address] Care Team Providers Care Endocrinologist Name Role Phone Ryan Metz MD Primary Care Provider [phone] Bhavna Ventura PA-C Primary Care Provider [phone] Petey York MD Primary Care Provider [phone] Catalino Koch MD Unavailable Bhavna Ventura PA-C Primary Care Provider [phone] Encounter Details Date Type Department Care Team (Latest Contact Info) Description 01/16/[address] [facility] , Franco Santos MD Social History Tobacco Use Types Packs/Day [...] documented as of this encounter Care Teams Endocrinologist Relationship Specialty Start Date End Date Ryan Metz MD [address] [place] [address] PCP - General INTERNAL MEDICINE 10/27/18 12/23/21 Bhavna Ventura PA-C [address] [place] [address] [address] [place] [address] PCP - General PHYSICIAN SALARY AND WAGE ADMINISTRATOR 12/24/21 01/16/23 Petey York MD [address] [place] [address] PCP - General FAMILY PRACTICE 01/17/23 05/26/24 Bhavna Ventura PA-C [address] [place] [address] [address] [place] [address] PCP - General PHYSICIAN SALARY AND WAGE ADMINISTRATOR 05/27/24 Catalino Koch MD [address] [facility] [address] [facility] [address] [place] [address] GENERAL SURGERY 05/27/24 documented as of this encounter
--- OUTSIDE RECORDS SUMMARY | 2024-05-27 15:42 | XMS_ITS | Clinical Summary ---
Author Organization [facility] Address [address] [place] [address] Care Team Providers Care Airset Caster Name Role Phone Uziel Teofilo Jones MD Unavailable [phone] Arian Eaton MD Unavailable [phone] Nathan Fish MD Unavailable [phone] Shara Monreal MD Unavailable [phone] Malorie Malcolm NP Unavailable [phone] Petey York MD Primary Care Provider [phone] Allergies Active Allergy Reactions Criticality Noted Date [...] tablet TAKE 1 TABLET(75 MCG) BY MOUTH ASSISTANT ACCOUNT EXECUTIVE BEFORE BREAKFAST 90 tablet 1 11/03/19 24 [...] (07/30/2021): Added automatically from request for surgery [id number] Malignant neoplasm 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, estrogen receptor negative 07/23/2021 Cancer Staging:Clinical stage from 07/20/2021:Stage IB(cT1c, cN0, cM0, G3, ER-, ND-, HER2-) - Signed by Arian Eaton MD on 07/30/2021 Pathologic stage from 02/10/2022:No Stage Recommended(ypT0, pN0(sn), cM0, GX, ER- , ND-, HER2-) - Signed by Arian Eaton MD on 03/09/2022 Endometriosis 10/22/2019 Overview (10/22/2019): Added automatically from request for surgery [id number] Pelvic and perineal pain 10/22/2019 Overview (10/22/2019): Added automatically from request for surgery [id number] Persistent proteinuria 10/25/2018 Recurrent UTI 10/25/2018 Asymptomatic microscopic hematuria 10/25/2018 Acute kidney injury 12/13/2017 Resolved Problems Problem Noted Date Diagnosed Date Resolved Date Post-operative state 02/22/2022 024 Encounters Date Type Department Care Team Description 05/06/2024 2:45 PM MANAGER SCHEDULING Office Visit [facility] [address] [place] [phone] Nathan Fish MD Malignant 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, estrogen receptor negative (HCC) (Primary Dx) 05/06/2024 2:00 PM MANAGER SCHEDULING Office Visit [facility] Radiation Oncology [facility] [place] [address] Arian Eaton MD Malignant 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, estrogen receptor negative (HCC) (Primary Dx) 05/06/2024 Orders Only [facility] [address] [facility] [address] [place] [address] Nathan Fish MD Invasive ductal carcinoma of breast, female, right (HCC) (Primary Dx); Malignant 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, estrogen receptor negative (HCC) 05/06/2024 Documentation [facility] [address] [place] [phone] Inessa Heart RC 02/29/2024 Telephone [facility] - Imaging [address] [place] [address] [address] [place] [phone] Jocelin Jones, YANNA Follow-Up Call 24-48 Hours; Test Results 02/28/2024 10:30 AM MANAGER SCHEDULING - 02/28/2024 11:59 PM MANAGER SCHEDULING Hospital Encounter [facility] - Imaging [address] [place] [phone] Abnormal MRI, breast Discharge Disposition: Discharge to home or self care 02/28/2024 7:24 AM MANAGER SCHEDULING - 02/28/2024 11:59 PM MANAGER SCHEDULING Hospital Encounter [facility] - Imaging [address] [place] [phone] Abnormal MRI, breast Discharge Disposition: Discharge to [...] on file Legal Sex Female 12:06 AM MANAGER SCHEDULING Gender Identity Not on file Sexual Orientation Not on file Occupation Industry Job Start Date Job End Date [employer] Not on file Not on file Not on file Obstetrics History Para Term AB IAB SAB Ectopic Multiple Livin g Live Births 0 0 0 0 0 0 0 0 0 0 0 Last Filed Vital Signs Vital Sign Reading Time Taken Comments Blood Pressure 126/82 05/06/2024 1:56 PM MANAGER SCHEDULING Pulse 98 05/06/2024 1:56 PM MANAGER SCHEDULING Temperature 36.1 C (97 F) 05/06/2024 2:30 PM MANAGER SCHEDULING Respiratory Rate 18 05/06/2024 1:56 PM MANAGER SCHEDULING Oxygen Saturation 100% 05/06/2024 1:56 PM MANAGER SCHEDULING Inhaled Oxygen Concentration - - Weight 95.7 kg (211 lb) 05/06/2024 2:30 PM MANAGER SCHEDULING Height 162.6 cm (5' 4 ) 05/06/2024 2:30 PM MANAGER SCHEDULING Body Mass Index 36.22 05/06/2024 2:30 PM MANAGER SCHEDULING Plan of Treatment Health Maintenance Due Date [...] this topic Medical Devices Implanted Type Area Medical Records Analyst Device Identifier Shelf Expiration Date Model / Serial / Lot [employer] Magseed 18ga 7cm Marker Breast Biopsy [id number] Right: Breast [employer] [id number] 12/10/2025 [id number] / / [id number] [employer] [facility] Trimark Second Marker Breast Biopsy Disposable Trimark Td 2s 13-Mr - [id number] Implanted:Qty: 1 on 02/28/2024 by Consuelo Altman MD at [facility] Right: Breast [employer] [id number] 06/13/2025 TRIMARK TD 2S 13-MR / / [id number] Explanted Type Area Medical Records Analyst Device Identifier Shelf Expiration Date Model / Serial / Lot [employer] Powerport Isp Mri Airguard 8fr 1 Lumen Attachable Catheter Open Latex Free [id number] - [id number] Implanted:Qty: 1 on 08/06/2021 by Koffi Brandon MD at [facility] Explanted:Qty: 1 Right: Chest [employer] 09/09/2022 [id number] / / [id number] Procedures Procedure Name Priority Date/Time Associated Diagnosis Comments MAMM POST CLIP PLACEMENT RIGHT Schedule Routine, Read Routine (OP Routine) 02/28/2024 10:50 AM MANAGER SCHEDULING Abnormal MRI, breast MRI GUIDED BREAST BIOPSY RIGHT Schedule Routine, Read Routine (OP Routine) 02/28/2024 10:28 AM MANAGER SCHEDULING Abnormal MRI, breast SURGICAL PATHOLOGY Routine 02/28/2024 10:01 AM MANAGER SCHEDULING Abnormal MRI, breast PAP AND HPV, REFLEX TO HPV GENOTYPES Routine 09/18/2023 4:32 AM CDT Screening for cervical cancer Screening for human papillomavirus (HPV) HEPATITIS C ANTIBODY Routine 07/11/2022 1:00 PM CDT from Last 3 Months or Most Recently Relevant to Health Maintenance Results * Mammo Post Clip Placement Right (02/28/2024 10:50 AM MANAGER SCHEDULING) Anatomical Region Laterality Modality Breast Right Mammography 02/28/2024 11:3 1 AM MANAGER SCHEDULING Addenda Addendum by Consuelo Altman MD on 02/29/2024 4:10 PM MANAGER SCHEDULING Pathology report for MRI guided core needle [...] patient by the nursing staff of the [facility]. Electronically signed by: Consuelo Altman M.D. Impressions 02/28/2024 11:31 AM MANAGER SCHEDULING Successful MRI guided biopsy of enhancement in the lumpectomy site of the right breast. Pathology report is pending. ASSESSMENT: Post-procedure mammogram for marker placement. Electronically signed by: Consuelo Altman M.D. Narrative 02/28/2024 11:31 AM MANAGER SCHEDULING MRI GUIDED CORE NEEDLE BIOPSY RIGHT BREAST, [...] with a #11 blade. A 9-gauge BANNER vacuum-assisted biopsy needle was advanced to the [...] tolerated the procedure well, and left the [facility] in good condition, without evidence of immediate complication. us Nathan Fish MD IMG MAMMO PROCEDURES Edite d Result - Final * MRI Guided Breast Biopsy Right (02/28/2024 10:28 AM MANAGER SCHEDULING) Anatomical Region Laterality Modality Breast Right Magnetic Resonan ce 02/28/2024 11:3 1 AM MANAGER SCHEDULING Addenda Addendum by Consuelo Altman MD on 02/29/2024 4:10 PM MANAGER SCHEDULING Pathology report for MRI guided core needle [...] patient by the nursing staff of the [facility]. Electronically signed by: Consuelo Altman M.D. Impressions 02/28/2024 11:31 AM MANAGER SCHEDULING Successful MRI guided biopsy of enhancement in the lumpectomy site of the right breast. Pathology report is pending. ASSESSMENT: Post-procedure mammogram for marker placement. Electronically signed by: Consuelo Altman M.D. Narrative 02/28/2024 11:31 AM MANAGER SCHEDULING MRI GUIDED CORE NEEDLE BIOPSY RIGHT BREAST, [...] with a #11 blade. A 9-gauge BANNER vacuum-assisted biopsy needle was advanced to the [...] tolerated the procedure well, and left the [facility] in good condition, without evidence of immediate complication. us Nathan Fish MD IMG MRI PROCEDURES Edited Result - Final * Surgical pathology (02/28/2024 10:01 AM MANAGER SCHEDULING) Tissue (Breast biopsy, needle core) 02/28/2024 10:01 AM MANAGER SCHEDULING Narrative PATHOLOGY [facility] [place] - 02/29/2024 12:16 PM MANAGER SCHEDULING [address] [address] Tele: Jocelin Browne MD - Blind Eyeletter Note to Patients: This report may contain [...] REPORT Patient Name: LATRICE TATE Address: [address] [place] [address] Gender: F : 1990 (Age: 34) Service: Location: , Hospital #: [id number] Patient Type: [facility] ANCILL[facility] Taken: 02/28/2024 Received 02/28/2024 Reported: 02/29/2024 Physician(s): [facility] - Dr. Altman DIAGNOSIS: Breast, [...] is entirely submitted in cassettes labeled A1-A3. [facility] MI[facility]OSCOPIC DESCRIPTION: Microscopic examination supports the above captioned diagnosis. There is no atypical hyperplasia or malignancy. Clerical Data Follows A; [id number] REPORT IMAGES AND/OR SCANNED DOCUMENTS ONLY VIEWABLE IN PDF FORMAT The immunohistochemical test(s) cited in this report, if any, was developed and its performance characteristics determined by [facility] Pathology Department. It has not been cleared or approved by the U.S. Food and Drug Administration. The FDA has determined that such clearance or approval is not necessary. This test is used for clinical purposes. It should not be regarded as investigational or for research. [facility] Laboratory is certified under the Clinical [...] part or completely in the following laboratories: [facility], [address], [place] [address] [facility], [address] [facility] [address], [place] [address]. Nathan Fish MD LAB PATHOLOGY ORDERABLES F inal Result PATHOLOGY [facility] [place] Laboratory Receiving [address] [place], [place] [id number] * (ABNORMAL) Pap and HPV, reflex to [...] 09/20/2023 2:11 PM CDT Performed at: - [address] [id number] Welding Machine Operator Plasma Arc: Yumiko Hubbard MD, Phone: [phone] Performed at: - [address] [id number] Welding Machine Operator Plasma Arc: Yumiko Hubbard MD, Phone: [phone] Specimen Comment: Source.............Cervix;Endocervix Specimen Comment: No. of containers..01 ThinPrep Vial Shara Monreal MD LAB CYTOLOGY ORDERABLES F inal Result Performing Organization Address [facility]/ZIP Co de Phone Number [facility] 02 * Hepatitis C antibody (07/11/2022 1:00 PM CDT) Hep C Ab Nonreactive Nonreactive [facility] Comment: Interpretive Data Nonreactive: Antibodies to HCV [...] GENERA L ORDERABLES Edited Result - Final [facility] [address] Department [place] [address] from Last 3 Months or Most Recently Relevant to Health Maintenance Insurance [facility] [id number] [place], [place] [id number] Care Teams Airset Caster Relationship Specialty Start Date End Date Petey York MD [address] [place], [place] [phone] PCP - General Family Medicine 03/01/22 Teofilo Triplett MD [address] [place] [address] Medical Oncologist/Law Instructor Hematology and Oncology 07/22/21 Arian Eaton MD [address] DEPT [place] [address] Consulting Physician Radiation Oncology 07/22/21 Nathan Fish MD [address] [place] [address] Consulting Physician Surgical Oncology 07/28/21 Shara Monreal MD [address] [place], [place] [phone] Consulting Physician Obstetrics and Gynecology 07/28/21 Malorie Malcolm, LANEY [address] [place] [address] Nurse Practitioner Surgery 12/22/21
--- OUTSIDE RECORDS SUMMARY | 2024-05-27 15:42 | XMS_ITS ---
Author Organization [facility] Address [address] [place] [phone] Care Team Providers Care Injector Assembler Name Role Phone Uziel Teofilo Jones MD Unavailable [phone] Arian Eaton MD Unavailable [phone] Nathan Fish MD Unavailable [phone] Shara Monreal MD Unavailable [phone] Malorie Malcolm NP Unavailable [phone] Petey York MD Primary Care Provider [phone] Active Problems Problem Noted Date Diagnosed Date Breast pain, right 06/27/2022 Invasive ductal carcinoma of breast, female, rig ht 07/30/2021 Encounter for fitting and adjustment of vascular catheter 07/30/2021 Overview (07/30/2021): Added automatically from request for surgery [id number] Malignant neoplasm 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, estrogen receptor negative 07/23/2021 Cancer Staging:Clinical stage from 07/20/2021:Stage IB(cT1c, cN0, cM0, G3, ER-, NJ-, HER2-) - Signed by Arian Eaton MD on 07/30/2021 Pathologic stage from 02/10/2022:No Stage Recommended(ypT0, pN0(sn), cM0, GX, ER- , NJ-, HER2-) - Signed by Arian Eaton MD on 03/09/2022 Endometriosis 10/22/2019 Overview (10/22/2019): Added automatically from request for surgery [id number] Pelvic and perineal pain 10/22/2019 Overview (10/22/2019): Added automatically from request for surgery [id number] Persistent proteinuria 10/25/2018 Recurrent UTI 10/25/2018 Asymptomatic [...] from the original note were not included. [facility] [facility] [address] This Survivorship Care Plan is a cancer [...] Information: Primary Care Physician Petey York MD [phone] Keanu Fish [phone] Arian Eaton [phone] Teofilo Triplett [phone] Plastic Surgeon Other Providers Treatment Summary Cancer [...] Stage IB (cT1c, cN0, cM0, G3, ER-, NJ-, HER2-) - Signed by Arian Eaton MD on 07/30/2021 - Pathologic stage from 02/10/2022: No Stage Recommended (ypT0, pN0(sn), cM0, GX, ER-, NJ-, HER2-) -Signed by Arian Eaton MD on [...] equivalent: 238.218 mg/m2 (480 mg) Research Studies [id number] in REsults of Immune Checkpoint Inhibitor Tx (DiRECT):Prospective Study of Cancer Survivors Tx'd w anti-PD-1/antiPD-L1 Immunotherapy in a Community Oncology Setting Status On study Active Start Date 08/13/21 NCT [id number] Persistent symptoms or side effects that have [...] breast cancer could run in the family: Oriental [employer] heritage History of ovarian cancer in the [...] monitoring Every 3 months while on Herceptin GENERATOR ASSEMBLER: No care steam hoist operator to display Pap/pelvic exam (woman only) [...] Help learning to eat healthier, call the post manager at: [facility] . Have an active lifestyle, strive for [...] Cancer.Net--http://www.cancer.net/survivorship Livestrong--http://www.livestrong.org/ Livestrong Care Plan--http://www.livestrongcareplan.org/ National Cancer Winkelman--http://www.cancer.gov/cancertopics/factsheet/therapy/followup National Cancer Winkelman Facing Forward: Life After Cancer Treatment--http://www.cancer.gov/cancertopics/coping/mndf-udoku-nhrxuspjt National Coalition for Cancer Survivorship--http://www.canceradvocacy.org/ National Comprehensive Cancer Network-http://www.nccn.org/patients/resources NCCS Cancer Survival Toolbox-- http://www.canceradvocacy.org/toolbox/ CancerCare--http://www.cancercare.org/ Healthcare.gov (insurance marketplace)-- https://www.healthcare.gov/ Cancer and Careers--http://www.cancerandcareers.org/en [place] Cancer Society:The Survivorship Center--http://www.cancer.org/survivorshipcenter Cancer Support Community- http://www.cancersupportcommunity.org/ Cancer Rehabilitation--www.[facility]/rehab Resolved Problems Problem Noted Date Diagnosed Date Resolved Date Post-operative state 02/22/2022 024
--- OUTSIDE RECORDS SUMMARY | 2024-05-27 15:42 | XMS_ITS | Encounter Summary ---
Author Organization [facility] Address [address] [place] [address] Care Team Providers Care Biodiesel Engineering Manager Name Role Phone Bhavna Ventura PA-C Primary Care Provider [phone] Petey York MD Primary Care Provider [phone] Catalino Koch MD Unavailable Bhavna Ventura PA-C Primary Care Provider [phone]- [phone] Encounter Details Date Type Department Care Team (Late st Contact Info) Description 12/28/2022 [employer] Message Enc [facility] [address] [address] [facility] [address] [place] [address] [place] [address] [place] [address] pain Social History Tobacco Use [...] on filedocumented in this encounter Care Teams Biodiesel Engineering Manager Relationship Specialty Start Date End Date Bhavna Ventura PA-C [address] [place] [address] [address] [place] [address] PCP - General PHYSICIAN RUBY RAILS DEVELOPER 12/24/21 01/16/23 Petey York MD [address] [place] [address] PCP - General FAMILY PRACTICE 01/17/23 05/26/24 Bhavna Ventura PA-C [address] [place], [place] [address] [place] [address] PCP - General PHYSICIAN RUBY RAILS DEVELOPER 05/27/24 Catalino Koch MD [address] [facility] [address] [place] [address] GENERAL SURGERY 05/27/24 documented as of this encounter
--- OUTSIDE RECORDS SUMMARY | 2024-05-27 15:42 | XMS_ITS | Referral Summary ---
Author Organization [facility] Address [address] [facility] [place] [address] Care Team Providers Care External Grinder Tool Name Role Phone Ryan Metz MD Primary Care Provider Source Comments [facility] Affiliates and Associated Physician Practices is amultiple site organization consisting of ambulatory clinics and hospital sitesin [place], [place], [place] and [place]. This disclosure is being madepursuant to the Care Everywhere program and may not contain all information available regarding this patient. Last updated 17.[facility] Allergies Active Allergy Reactions Criticality Noted Date [...] 6:14 PM 12/14/2017 4:52 PM Care Teams External Grinder Tool Relationship Specialty Start Date End Date Ryan Metz MD [address] [place] [address] PCP - General 05/15/17
--- OUTSIDE RECORDS SUMMARY | 2024-05-27 15:42 | XMS_ITS | Referral Summary ---
Author Organization [facility] Address [address] [place] [phone] Care Team Providers Care Loft Worker Apprentice Name Role Phone Uziel Teofilo Jones MD Unavailable Arian Eaton MD Unavailable [phone] Nathan Fish MD Unavailable [phone] Shara Monreal MD Unavailable Malorie Malcolm NP Unavailable Petey York MD Primary Care Provider [phone] Encounters Date Type Department Care Team Description 05/06/2024 Orders Only [facility] [address] [place] [phone] Nathan Fish MD Invasive ductal carcinoma of breast, female, right (HCC) (Primary Dx); Malignant 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, estrogen receptor negative (HCC) 05/06/2024 Documentation [facility] [address] [place] [phone] Inessa Heart RC 05/06/2024 2:00 PM ATTENDANT CAMPGROUND Office Visit [facility] Radiation Oncology [address] [place] [phone] Arian Eaton MD Malignant 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, estrogen receptor negative (HCC) (Primary Dx) 05/06/2024 2:45 PM ATTENDANT CAMPGROUND Office Visit [facility] [address] [place] [address] [address] [place] [phone] Nathan Fish MD Malignant 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, estrogen receptor negative (HCC) (Primary Dx) 02/29/2024 Telephone [facility] [address] [place] [address] Jocelin Jones RN Follow-Up Call 24-48 Hours; Test Results 02/28/2024 10:30 AM ATTENDANT CAMPGROUND - 02/28/2024 11:59 PM ATTENDANT CAMPGROUND Hospital Encounter [facility] [address] [place] [address] Abnormal MRI, breast Discharge Disposition: Discharge to home or self care 02/28/2024 7:24 AM ATTENDANT CAMPGROUND - 02/28/2024 11:59 PM ATTENDANT CAMPGROUND Hospital Encounter [facility] [address] [place] [address] Abnormal MRI, breast Discharge Disposition: [...] tablet TAKE 1 TABLET(75 MCG) BY MOUTH HEALTH DIRECTOR BEFORE BREAKFAST 90 tablet 1 11/03/19 24 [...] (07/30/2021): Added automatically from request for surgery [id number] Malignant neoplasm 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, estrogen receptor negative 07/23/2021 Cancer Staging:Clinical stage from 07/20/2021:Stage IB(cT1c, cN0, cM0, G3, ER-, AR-, HER2-) - Signed by Arian Eaton MD on 07/30/2021 Pathologic stage from 02/10/2022:No Stage Recommended(ypT0, pN0(sn), cM0, GX, ER- , AR-, HER2-) - Signed by Arian Eaton MD on 03/09/2022 Endometriosis 10/22/2019 Overview (10/22/2019): Added automatically from request for surgery [id number] Pelvic and perineal pain 10/22/2019 Overview (10/22/2019): Added automatically from request for surgery [id number] Persistent proteinuria 10/25/2018 Recurrent UTI 10/25/2018 Asymptomatic [...] on file Legal Sex Female 12:06 AM ATTENDANT CAMPGROUND Gender Identity Not on file Sexual Orientation Not on file Occupation Industry Job Start Date Job End Date [employer] Not on file Not on file Not on file Last Filed Vital Signs Vital Sign Reading Time Taken Comments Blood Pressure 126/82 05/06/2024 1:56 PM ATTENDANT CAMPGROUND Pulse 98 05/06/2024 1:56 PM ATTENDANT CAMPGROUND Temperature 36.1 C (97 F) 05/06/2024 2:30 PM ATTENDANT CAMPGROUND Respiratory Rate 18 05/06/2024 1:56 PM ATTENDANT CAMPGROUND Oxygen Saturation 100% 05/06/2024 1:56 PM ATTENDANT CAMPGROUND Inhaled Oxygen Concentration - - Weight 95.7 kg (211 lb) 05/06/2024 2:30 PM ATTENDANT CAMPGROUND Height 162.6 cm (5' 4 ) 05/06/2024 2:30 PM ATTENDANT CAMPGROUND Body Mass Index 36.22 05/06/2024 2:30 PM ATTENDANT CAMPGROUND Plan of Treatment Not on file Medical Devices Implanted Type Area Scuba Dive Training Instructor Device Identifier Shelf Expiration Date Model / Serial / Lot Reissued Magseed 18ga 7cm Marker Breast Biopsy [id number] Right: Breast [employer] [id number] 12/10/2025 [id number] / / [id number] broadbandchoices [facility] Trimark Second Marker Breast Biopsy Disposable Trimark Td 2s 13-Mr - [id number] Implanted:Qty: 1 on 02/28/2024 by Consuelo Altman MD at [facility] Right: Breast [employer] [id number] 06/13/2025 TRIMARK TD 2S 13-MR / / [id number] Explanted Type Area Scuba Dive Training Instructor Device Identifier Shelf Expiration Date Model / Serial / Lot [employer] Powerport Isp Mri Airguard 8fr 1 Lumen Attachable Catheter Open Latex Free [id number] - [id number] Implanted:Qty: 1 on 08/06/2021 by Koffi Brandon MD at [facility] Explanted:Qty: 1 Right: Chest [employer] 09/09/2022 [id number] / / [id number] Procedures Procedure Name Priority Date/Time Associated Diagnosis Comments MAMM POST CLIP PLACEMENT RIGHT Schedule Routine, Read Routine (OP Routine) 02/28/2024 10:50 AM ATTENDANT CAMPGROUND Abnormal MRI, breast MRI GUIDED BREAST BIOPSY RIGHT Schedule Routine, Read Routine (OP Routine) 02/28/2024 10:28 AM ATTENDANT CAMPGROUND Abnormal MRI, breast SURGICAL PATHOLOGY Routine 02/28/2024 10:01 AM ATTENDANT CAMPGROUND Abnormal MRI, breast PAP AND HPV, REFLEX TO HPV GENOTYPES Routine 09/18/2023 4:32 AM CDT Screening for cervical cancer Screening for human papillomavirus (HPV) HEPATITIS C ANTIBODY Routine 07/11/2022 1:00 PM CDT from Last 3 Months or Most Recently Relevant to Health Maintenance Results * Mammo Post Clip Placement Right (02/28/2024 10:50 AM ATTENDANT CAMPGROUND) Anatomical Region Laterality Modality Breast Right Mammography 02/28/2024 11:3 1 AM ATTENDANT CAMPGROUND Addenda Addendum by Consuelo Altman MD on 02/29/2024 4:10 PM ATTENDANT CAMPGROUND Pathology report for MRI guided core needle [...] patient by the nursing staff of the [facility]. Electronically signed by: Consuelo Altman M.D. Impressions 02/28/2024 11:31 AM ATTENDANT CAMPGROUND Successful MRI guided biopsy of enhancement in the lumpectomy site of the right breast. Pathology report is pending. ASSESSMENT: Post-procedure mammogram for marker placement. Electronically signed by: Consuelo Altman M.D. Narrative 02/28/2024 11:31 AM ATTENDANT CAMPGROUND MRI GUIDED CORE NEEDLE BIOPSY RIGHT BREAST, [...] with a #11 blade. A 9-gauge [facility] vacuum-assisted biopsy needle was advanced [...] tolerated the procedure well, and left the [facility] in good condition, without evidence of immediate complication. us Nathan Fish MD IMG MAMMO PROCEDURES Edite d Result - Final * MRI Guided Breast Biopsy Right (02/28/2024 10:28 AM ATTENDANT CAMPGROUND) Anatomical Region Laterality Modality Breast Right Magnetic Resonan ce 02/28/2024 11:3 1 AM ATTENDANT CAMPGROUND Addenda Addendum by Consuelo Altman MD on 02/29/2024 4:10 PM ATTENDANT CAMPGROUND Pathology report for MRI guided core needle [...] patient by the nursing staff of the [facility]. Electronically signed by: Consuelo Altman M.D. Impressions 02/28/2024 11:31 AM ATTENDANT CAMPGROUND Successful MRI guided biopsy of enhancement in the lumpectomy site of the right breast. Pathology report is pending. ASSESSMENT: Post-procedure mammogram for marker placement. Electronically signed by: Consuelo Altmna M.D. Narrative 02/28/2024 11:31 AM ATTENDANT CAMPGROUND MRI GUIDED CORE NEEDLE BIOPSY RIGHT BREAST, [...] with a #11 blade. A 9-gauge [facility] vacuum-assisted biopsy needle was advanced [...] tolerated the procedure well, and left the [facility] in good condition, without evidence of immediate complication. us Nathan Fish MD [facility] MRI PROCEDURES Edited Result - Final * Surgical pathology (02/28/2024 10:01 AM ATTENDANT CAMPGROUND) Tissue (Breast biopsy, needle core) 02/28/2024 10:01 AM ATTENDANT CAMPGROUND Narrative PATHOLOGY [facility] - 02/29/2024 12:16 PM ATTENDANT CAMPGROUND [address] [address] Tele: Jocelin Browne MD - Visiting Teacher Note to Patients: This report may contain [...] PATHOLOGY REPORT Patient Name: LATRICE TATE Address: [address] [place] [address] Gender: F : 1990 (Age: 34) Service: Location: , Hospital #: [id number] Patient Type: [facility] ANCILLARY Taken: 02/28/2024 Received 02/28/2024 Reported: 02/29/2024 Physician(s): [facility] - Dr. Altman DIAGNOSIS: Breast, right breast abnormal enhancement, needle biopsy: - Hyalinized fibroadenoma - Focal fat necrosis [facility]/02/29/2024 12:16 Examining Pathologist: Mildred Gonzales M.D. [...] is entirely submitted in cassettes labeled A1-A3. [facility] MICROSCOPIC DESCRIPTION: Microscopic examination supports the above captioned diagnosis. There is no atypical hyperplasia or malignancy. Clerical Data Follows A; [id number] REPORT IMAGES AND/OR SCANNED DOCUMENTS ONLY VIEWABLE IN PDF FORMAT The immunohistochemical test(s) cited in this report, if any, was developed and its performance characteristics determined by [facility] Pathology Department. It has not been cleared or approved by the U.S. Food and Drug Administration. The FDA has determined that such clearance or approval is not necessary. This test is used for clinical purposes. It should not be regarded as investigational or for research. [facility] is certified under the [...] part or completely in the following laboratories: [facility], [address], [place] [address] [facility], [address], [place] [address]. us Nathan Fish MD LAB PATHOLOGY ORDERABLES F inal Result PATHOLOGY [facility] Laboratory Receiving [address] [place], [place] [id number] * (ABNORMAL) Pap and HPV, reflex to [...] 09/20/2023 2:11 PM CDT Performed at: - [address] [id number] Instrumentation Fitter: Yumiko Hubbard MD, Phone: [phone] Performed at: 02 - [address] [id number] Instrumentation Fitter: Yumiko Hubbard MD, Phone: [phone] Specimen Comment: Source.............Cervix;Endocervix Specimen Comment: No. of containers..01 ThinPrep Vial Shara Monreal MD LAB CYTOLOGY ORDERABLES F inal Result Performing Organization Address City/[facility]/ZIP Co de Phone Number [facility] - 01 LAB PEÑA 02 * Hepatitis C antibody (07/11/2022 1:00 PM CDT) Hep C Ab Nonreactive Nonreactive [facility] Comment: Interpretive Data Nonreactive: Antibodies to [...] GENERA L ORDERABLES Edited Result - Final [facility] [address] Department [place] [address] from Last 3 Months or Most Recently Relevant to Health Maintenance Insurance HMO HMO O Care Teams Loft Worker Apprentice Relationship Specialty Start Date End Date Petey York MD [address] [place] [address] PCP - General Family Medicine 03/01/22 Teofilo Triplett MD [address] [place] [address] Medical Oncologist/Cafeteria Table Attendant Hematology and Oncology 07/22/21 Arian Eaton MD [address] [place] [address] Consulting Physician Radiation Oncology 07/22/21 Nathan Fish MD [address] [facility] [address] [place] [address] Consulting Physician Surgical Oncology 07/28/21 Shara Monreal MD [address] [place] [address] Consulting Physician Obstetrics and Gynecology 07/28/21 Malorie Malcolm NP [address] [place] [address] Nurse Practitioner Surgery 12/22/21
--- OUTSIDE RECORDS SUMMARY | 2024-05-27 15:42 | XMS_ITS | Encounter Summary ---
Author Organization [facility] Address [address] [place] [address] Care Team Providers Care Placement Specialist Name Role Phone Catalino Koch MD Unavailable Bhavna Ventura PA-C Primary Care Provider [phone] Reason for Referral * Imaging (Emergency) - New Request Specialty Diagnoses / Procedures Referred By Ronaldo merritt Referred To Contact RADIOLOGY Procedures CT ABD+PEL W IV CON ONLY Tamela Barreto MD [address] [place] [address] Phone: tel: fax: Referral ID Status Reason Start Date Expiration Date V isits Requested Visits Authorized [id number] New Request 05/27/2024 05/27/2025 1 1 Reason for Visit * Reason Comments Abdominal Pain Encounter Details Date Type Department Care Team (Late st Contact Info) Description 05/27/2024 1:49 PM CDT - Present Emergency [facility] Emergency Room [id number] [place] [address] Tamela Barreto MD [address] [place] [address] Abdominal Pain Social History Tobacco Use [...] Name Type Priority Associated Diagnoses Date /Time URINALYSIS, AUTO, COMPLETE Lab STAT 05/27/2024 3:30 PM CDT TEST URINE Lab STAT 05/11 3:30 PM CDT Scheduled Orders Name Type Priority Associated Diagnoses Orde r Schedule URINALYSIS, AUTO, COMPLETE Lab Routine STAT for 1 Occur rences starting 05/27/2024 until 05/27/2024 TEST URINE Lab STAT Once for 1 Occurrences starting 05/27/2024 until 05/27/2024 CT ABD+PEL W IV CON ONLY CT STAT One time imaging One time imaging for 1 Occurrences starting 05/27/2024 until 05/27/2024 documented as of this encounter Procedures * The patient is currently admitted. The information in this section might not be complete until the patient is discharged. Procedure Name Priority Date/Time Associated Diagnosis Comments PARTIAL THROMBOPLASTIN TIME,PTT STAT 05/27/2024 2:38 PM CDT PROTHROMBIN TIME, VENOUS STAT 05/27/2024 2:38 PM CDT COMPREHENSIVE METABOLIC PANEL STAT 05/27/2024 2:38 PM CDT CBC W/DIFF AUTOMATED STAT 05/27/2024 2:38 PM CDT LIPASE STAT 05/27/2024 2:38 PM CDT documented in this encounter Results * LIPASE (05/27/2024 2:38 PM CDT) Pathologist [facility] LIPASE 29 16 - 77 UNITS/L 05/27/2024 2:57 PM CDT [facility] 05/27/2024 2:38 PM CDT us Tamela Barreto MD LABORATORY Final Result [facility] [address] [place] [address], [place] [phone] * (ABNORMAL) COMPREHENSIVE METABOLIC PANEL (05/27/2024 2:38 PM CDT) Pathologist [facility] GLUCOSE 106(H) 70 - 99 MG/DL 05/27/2024 2:57 PM CDT [facility] BUN 12 7 - 18 MG/DL 05/27/2024 2:57 PM CDT [facility] CREATININE S/P/B 0.63 0.55 - 1.02 MG/DL 05/27/2024 2:57 PM T [facility] SODIUM S/P/B 139 136 - 145 MMOL/L 05/27/2024 2:57 PM T [facility] POTASSIUM S/P/B 3.7 3.5 - 5.1 MMOL/L 05/27/2024 2:57 PM T [facility] CHLORIDE S/P/B 104 100 - 108 MMOL/L 05/27/2024 2:57 PM T [facility] CO2 21.7 21 - 32 MMOL/L 05/27/2024 2:57 PM T [facility] CALCIUM S/P/B 9.6 8.5 - 10.1 MG/DL 05/27/2024 2:57 PM T [facility] BILIRUBIN TOTAL S/P/B 0.8 0.2 - 1.2 MG/DL 05/27/2024 2:57 PM [facility] TOTAL PROTEIN S/P/B 7.4 6.4 - 8.2 G/DL 05/27/2024 2:57 PM T [facility] ALBUMIN S/P/B 3.8 3.4 - 5.0 G/DL 05/27/2024 2:57 PM T [facility] AST 48(H) 15 - 37 U/L 05/27/2024 2:57 PM T [facility] ALT 62(H) 14 - 55 U/L 05/27/2024 2:57 PM [facility] ALKALINE PHOSPHATASE S/P/B 125 50 - 136 U/L 05/27/2024 2:57 PM T [facility] ANION GAP 13.3 5 - 15 MMOL/L 05/27/2024 2:57 PM CDT [facility] BUN CREATININE RATIO 19.0 6 - 26 05/27/2024 2:57 PM CDT [facility] A/G RATIO 1.1 1.0 - 2.0 RATIO 05/27/2024 2:57 PM CDT [facility] GFR ESTIMATE >90 >90 ML/MIN/1.7 3 M2 05/27/2024 2:57 PM CDT [facility] Comment: NOTE: eGFR is not calculated for patients <18 years of age. This is an estimated GFR calculation using the new CKD EPI creatinine equation without race and so does not require a correction factor for race. This estimated GFR should not be used for calculating drug doses. 05/27/2024 2:38 PM CDT us Tamela Barreto MD LABORATORY Final Result [facility] [address] [place] [address], * PARTIAL THROMBOPLASTIN TIME,PTT (05/27/2024 2:38 PM CDT) PTT 35.5 27.0 - 36.8 SEC 05/27/2024 2:51 PM CDT [facility] 05/27/2024 2:38 PM CDT us Tamela Barreto MD LABORATORY Final Result [facility] [address] [place] [address], [place] [phone] * (ABNORMAL) PROTIME/INR, VENOUS (05/27/2024 2:38 PM CDT) PROTIME 13.2(H) 9.1 - 12.4 SEC 05/27/2024 2:51 PM CDT [facility] INR 1.1 05/27/2024 2:51 PM CDT [facility] Comment: Recommend INR ranges for Oral Anticoagulant Therapy: Mechanical Cardiac Values 2.5-3.5 All others indication 2.0-3.0 05/27/2024 2:38 PM CDT us Tamela Barreto MD LABORATORY Final Result [facility] [address] [place] [address], * (ABNORMAL) CBC W/DIFF AUTOMATED (05/27/2024 2:38 PM CDT) WBC 8.63 4.4 - 11.0 x10'3/uL 05/27/2024 2:43 PM CDT [facility] RBC 4.30(L) 4.50 - 5.10 x10'6/uL 05/27/2024 2:43 PM CDT [facility] HGB 12.8 12.3 - 15.3 G/DL 05/27/2024 2:43 PM CDT [facility] HCT 38.4 35.9 - 44.6 % 05/27/2024 2:43 PM CDT [facility] MCV 89.3 80.0 - 96.0 FL 05/27/2024 2:43 PM CDT [facility] MCH 29.8 25.3 - 30.9 PG 05/27/2024 2:43 PM CDT [facility] MCHC 33.3 31.0 - 34.1 G/DL 05/27/2024 2:43 PM CDT [facility] RDW 12.5 12.4 - 15.1 % 05/27/2024 2:43 PM CDT [facility] PLT 361(H) 151 - 353 x10'3/uL 05/27/2024 2:43 PM T [facility] MPV 9.3(L) 9.6 - 12.0 FL 05/27/2024 2:43 PM CDT [facility] RBC MORPHOLOGY NORMAL 05/27/2024 2:43 PM T [facility] PLT MORPH. NORMAL 05/27/2024 2:43 PM CDT [facility] WBC MORPHOLOGY NORMAL 05/27/2024 2:43 PM T [facility] LYMPHOCYTES % 19.5 15.8 - 45.0 % 05/27/2024 2:43 PM CDT [facility] NEUTROPHILS % 66.3 42.1 - 71.9 % 05/27/2024 2:43 PM CDT [facility] MONOCYTES % 7.4 5.7 - 12.5 % 05/27/2024 2:43 PM T [facility] EOSINOPHILS 5.8(H) 0.0 - 5.6 % 05/27/2024 2:43 PM CDT [facility] BASOPHILS 0.7 0.0 - 1.3 % 05/27/2024 2:43 PM CDT [facility] ABS. NEUTROPHILS 5.72 1.40 - 6.00 x10'3/uL 05/27/2024 2:43 PM CDT [facility] IMMATURE GRANS % 0.3 0.0 - 0.5 % 05/27/2024 2:43 PM CDT [facility] ABS. LYMPHOCYTES 1.68 0.80 - 4.70 x10'3/uL 05/27/2024 2:43 PM T [facility] 05/27/2024 2:38 PM CDT us Tamela Barreto MD LABORATORY Final Result [facility] [address] [place] [address], [place] [phone] documented in this encounter Visit Diagnoses Not [...] minutes. 1426 (Given - Provid er: Elaine Perea, YANNA) ondansetron (ZOFRAN) injection 4 mg (COMPLETED) 4 mg, Intravenous, Once, 1 dose, On Mon05/27/24 at 1430, IV push over 2-5 minutes. 1424 (Given - Provid er: Elaine Perea, YANNA) sodium chloride 0.9% bolus infusion 1,000 mL (COMPLETED) 1,000 mL, Intravenous, Administer over 60 Minutes, Once, 1 dose, On Mon05/27/24 at 1415 1423 (New Bag - Prov ider: Elaine Perea, YANNA)1523 (Due: Infusion Stop Time - Provider: Elaine Perea, YANNA) documented in this encounter Care Teams Placement Specialist Relationship Specialty Start Date End Date Bhavna Ventura PA-C [address] [place] [address] PCP - General PHYSICIAN BLOCK HANDLER 05/27/24 Catalino Koch MD [address] [facility] [address] [place] [address] GENERAL SURGERY 05/27/24 documented as of this encounter
--- OUTSIDE RECORDS SUMMARY | 2024-05-27 15:42 | XMS_ITS | Encounter Summary ---
Author Organization [facility] Address [facility] [place] [address] Care Team Providers Care Twist Tester Name Role Phone Catalino Koch MD Unavailable Bhavna Ventura PA-C Primary Care Provider [phone] Encounter Details Date Type Department Care Team [...] on filedocumented in this encounter Care Teams Twist Tester Relationship Specialty Start Date End Date Bhavna Ventura PA-C [address] [place] [address] [address] [place] [address] PCP - General PHYSICIAN APPLICATION SUPPORT ADMINISTRATOR 05/27/24 Catalino Koch MD [address] [place] [address] [address] [place] [address] GENERAL SURGERY 05/27/24 documented as of this encounter
--- OUTSIDE RECORDS SUMMARY | 2024-05-27 15:42 | XMS_ITS | Clinical Summary ---
Author Organization [facility] Address [address] [place] [address] Care Team Providers Care Internal Communications Specialist Name Role Phone Ryan Metz MD Primary Care Provider [phone] Source Comments [facility] hospital Affiliates and Associated Physician Practices is amultiple site organization consisting of ambulatory clinics and hospital sitesin [place], [place], [place] and [place]. This disclosure is being madepursuant to the Care Everywhere program and may not contain all information available regarding this patient. Last updated 17.[facility] Allergies Active Allergy Reactions Criticality Noted Date [...] 6:14 PM 12/14/2017 4:52 PM Care Teams Internal Communications Specialist Relationship Specialty Start Date End Date Ryan Metz MD [address] [place] [address] PCP - General 05/15/17
--- OUTSIDE RECORDS SUMMARY | 2024-05-27 15:42 | XMS_ITS | Patient Health Summary ---
Author Organization [facility] Address [address] [place] [address] Care Team Providers Care Auto Body Estimator Name Role Phone Ryan Metz MD Primary Care Provider [phone] Note from [facility],non-owned Affiliates and Associated Physician Practices is amultiple site organization consisting of ambulatory clinics and hospital sitesin [place], [place], [place] and [place]. This disclosure is being madepursuant to the Care Everywhere program and may not contain all information available regarding this patient. Last updated 17.[facility] Allergies * Doxycycline(Nausea and/or Vomiting) Medications * [...] AM CDT) Case Report Dermatopathology Report Case: [id number] Authorizing Provider: Fina Cueto MD Collected: 12/14/2023 12:00 AM Ordering Location: [facility] - Received: 12/18/2023 08:49 AM DermPath Lab Pathologist: Desi Doan MD Specimen: Skin, under right breast 3:57 PM CDT DERMATOPATHOLOGY LABORATORY Final Diagnosis Specimen A. SKIN, under right breast: VASCULAR PROLIFERATION, SUPERFICIAL PORTIONS OF (D48.5) (see microscopic description and comment) 3:57 PM [facility] DERMATOPATHOLOGY LABORATORY Clinical History Cyst vs dermatofibroma, r/o other 3:57 PM [facility] DERMATOPATHOLOGY LABORATORY Gross Description Specimen A: Received is one formalin filled container labeled with the patient's name and designated under right breast. The specimen consists of a 3x3x4 mm piece of skin. The specimen is serially sectioned and a retail field representative section is submitted in cassette 1. Jar 1. 3:57 PM [facility] DERMATOPATHOLOGY LABORATORY Microscopic Description Specimen A. SKIN, [...] Dr. Dai Fenton, who agrees. 3:57 PM [facility] DERMATOPATHOLOGY LABORATORY Disclaimer An external and internal positive and negative controls are appropriate for the histochemical, immunohistochemical and immunofluorescence stain(s) in this case (if any), except where stated explicitly. The performance characteristics of the stain(s) cited in this report were developed and its performance characteristic determined by the Dermatopathology Laboratory at [facility], directed by Dr. Tigre Fenton. These tests need not be, and therefore are not, approved by the [place] Food and Drug Administration. The tests are used for clinical purposes. Billing Codes Specimen Charges Stain Charges 92989 1 18299 75928 64519 81628 34762 72929 1 1 1 1 1 1 4 3:57 PM CDT DERMATOPATHOLOGY LABORATORY Embedded Images 4 3:57 PM CDT DERMATOPATHOLOGY LABORATORY Pathology/Cytolog y TISSUE SPECIMEN FROM SKIN / Unknown 12/14/2023 12/18/2023 8:49 AM CDT Fina Cueto MD LAB - PATHOLOGY/CYTO LOGY ORDERABLES DERMATOPATHOLOGY LABORATORY [facility] - Department of Dermatology [address], [address] Floor [address] [phone] * US KIDNEY WITH DOPPLER (12/14/2017 9:02 AM CDT) Anatomical Region Laterality Modality Ultrasound 12/14/2017 9:17 AM CDT Impressions 12/14/2017 12:48 PM CDT IMPRESSION: 1. No ultrasonographic evidence of pyelonephritis. 2. Patent renal vasculature. Dictated by Subha Marquez MD (professor of radiology). This report was approved by Subha Marquez [...] renal vasculature. Dictated by Subha Marquez MD (professor of radiology). This report was approved by Subha Marquez on 12/14/2017 10:01 AM . I, Dr. KAROL ALLRED M.D. have personally reviewed and interpretedthis examination/study. This report was electronically signed by KAROL ALLRED M.D. on 12/14/2017 12:48 PM . Roderick Cintron MD US ORDERABLES * (ABNORMAL) CBC W/O DIFFERENTIAL (12/14/2017 3:27 AM CDT) WBC 7.5 3.5 - 10.5 10 3/uL 12/14/2017 3:49 AM CDT [facility] RBC 3.69(L) 3.90 - 5.00 10 6/uL 12/14/2017 3:49 AM [facility] Hemoglobin 10.9(L) 12.0 - 15.5 g/dL 12/14/2017 3:49 AM [facility] Hematocrit 32.0(L) 35.0 - 45.0 % 12/14/2017 3:49 AM [facility] MCV 86.7 81.0 - 97.0 fL 12/14/2017 3:49 AM [facility] MCH 29.5 28.0 - 34.0 pg 12/14/2017 3:49 AM [facility] MCHC 34.1 32.0 - 36.0 g/dL 12/14/2017 3:49 AM [facility] Platelet Count 226 150 - 400 10 3/uL 12/14/2017 3:49 AM [facility] RDW-SD 39.7 36.0 - 50.0 fL 12/14/2017 3:49 AM [facility] RDW-CV 12.4 11.2 - 14.8 % 12/14/2017 3:49 AM [facility] MPV 9.6 9.3 - 12.8 fL 12/14/2017 3:49 AM [facility] Blood BLOOD SPECIMEN / Unknown Lab Venipuncture / Unknown 12/14/2017 3:27 AM CDT 12/14/2017 3:45 AM T Roderick Cintron MD LAB - HEMATOLOGY ORD ERABLES [facility] [address] [phone] * (ABNORMAL) BASIC METABOLIC PANEL (CALCIUM TOTAL) (12/14/2017 3:27 AM CDT) BUN 14 7 - 26 mg/dL 12/14/2017 4:09 AM [facility] Creatinine 1.3(H) 0.6 - 1.2 mg/dL 12/14/2017 4:09 AM [facility] Sodium 140 136 - 145 mmol/L 12/14/2017 4:09 AM [facility] Potassium 3.8 3.5 - 4.5 mmol/L 12/14/2017 4:09 AM [facility] Chloride 110(H) 98 - 107 mmol/L 12/14/2017 4:09 AM [facility] CO2 22 22 - 29 mmol/L 12/14/2017 4:09 AM [facility] Glucose 101 70 - 115 mg/dL 12/14/2017 4:09 AM [facility] Calcium 8.7 8.4 - 10.2 mg/dL 12/14/2017 4:09 AM [facility] Anion Gap 12 8 - 18 12/14/2017 4:09 AM [facility] BUN/Creatinine Ratio 11 7 - 23 12/14/2017 4:09 AM [facility] Osmolality Calculated 291 270 - 300 mOsm/kg 12/14/2017 4:09 AM [facility] eGFR 50(L) >60 mL/min/1.7 3 m2 12/14/2017 4:09 AM [facility] Blood BLOOD SPECIMEN / Unknown Lab Venipuncture / Unknown 12/14/2017 3:27 AM CDT 12/14/2017 3:44 AM CDT Roderick Cintron MD LAB - CHEMISTRY [place] [facility] [address] [phone] * HCG URINE QUALITATIVE (12/13/2017 8:38 PM CDT) Test Urine Negative Negative 12/13/2017 8:44 PM T [facility] Urine URINE / Unknown Collection / Unknown 12/13/2017 8:38 PM CDT 12/13/2017 8:38 PM CDT Yady Esquivel DO LAB - URINALY SIS ORDERABLES Performing Organization Address City/[facility]/ZIP Co de Phone Number [address] [phone] * SODIUM URINE RANDOM (12/13/2017 8:37 PM CDT) Sodium Urine 120 Not Established mmol/L 12/13/2017 9:09 PM CDT [facility] Urine URINE SPECIMEN OBTAINED BY CLEAN CATCH PROCEDURE / Unknown Collection / Unknown 12/13/2017 8:37 PM CDT 12/13/2017 8:37 PM CDT Roderick Cintron MD LAB - URINE CHEMISTR Y ORDERABLES [address] [phone] * UREA NITROGEN URINE RANDOM (12/13/2017 8:37 PM CDT) Urea Nitrogen Random Urine 202 Not Established mg/dL 12/13/2017 9:09 PM CDT [facility] Urine URINE SPECIMEN OBTAINED BY CLEAN CATCH PROCEDURE / Unknown Collection / Unknown 12/13/2017 8:37 PM CDT 12/13/2017 8:37 PM CDT Roderick Cintron MD LAB - URINE CHEMISTR Y ORDERABLES Performing Organization Address City/[facility]/ZIP Co de Phone Number [address] [phone] * POTASSIUM URINE RANDOM (12/13/2017 8:37 PM CDT) Potassium Urine 10 Not Established mmol/L 12/13/2017 9:09 PM CDT [facility] Urine URINE SPECIMEN OBTAINED BY CLEAN CATCH PROCEDURE / Unknown Collection / Unknown 12/13/2017 8:37 PM CDT 12/13/2017 8:37 PM CDT Roderick Cintron MD LAB - URINE CHEMISTR Y ORDERABLES Performing Organization Address [facility]/ZIP Co de Phone Number [address] [phone] * OSMOLALITY URINE (12/13/2017 8:37 PM CDT) Osmolality Urine 342 50 - 1,200 mOsm/kg 12/13/2017 9:01 PM CDT [facility] Urine URINE SPECIMEN OBTAINED BY CLEAN CATCH PROCEDURE / Unknown Collection / Unknown 12/13/2017 8:37 PM CDT 12/13/2017 8:37 PM CDT Roderick Cintron MD LAB - URINE CHEMISTR Y ORDERABLES Performing Organization Address City/[facility]/ZIP Co de Phone Number [address] [phone] * CREATININE URINE RANDOM (12/13/2017 8:37 PM CDT) Creatinine Urine 40 Not Established mg/dL 12/13/2017 9:21 PM T [facility] Urine URINE SPECIMEN OBTAINED BY CLEAN CATCH PROCEDURE / Unknown Collection / Unknown 12/13/2017 8:37 PM CDT 12/13/2017 8:37 PM CDT Roderick Cintron MD LAB - URINE CHEMISTR Y ORDERABLES Performing Organization Address City/[facility]/ZIP Co de Phone Number [address] [phone] * (ABNORMAL) CBC W AUTO DIFFERENTIAL (12/13/2017 7:17 PM CDT) WBC 6.9 3.5 - 10.5 10 3/uL 12/13/2017 7:50 PM [facility] RBC 3.77(L) 3.90 - 5.00 10 6/uL 12/13/2017 7:50 PM [facility] Hemoglobin 11.1(L) 12.0 - 15.5 g/dL 12/13/2017 7:50 PM [facility] Hematocrit 33.4(L) 35.0 - 45.0 % 12/13/2017 7:50 PM [facility] MCV 88.6 81.0 - 97.0 fL 12/13/2017 7:50 PM [facility] MCH 29.4 28.0 - 34.0 pg 12/13/2017 7:50 PM [facility] MCHC 33.2 32.0 - 36.0 g/dL 12/13/2017 7:50 PM [facility] Platelet Count 223 150 - 400 10 3/uL 12/13/2017 7:50 PM [facility] RDW-SD 40.8 36.0 - 50.0 fL 12/13/2017 7:50 PM [facility] RDW-CV 12.7 11.2 - 14.8 % 12/13/2017 7:50 PM [facility] MPV 9.8 9.3 - 12.8 fL 12/13/2017 7:50 PM [facility] Neutrophils % 61.6 35.0 - 70.0 % 12/13/2017 7:50 PM [facility] Lymphocytes % 29.8 19.7 - 55.1 % 12/13/2017 7:50 PM [facility] Monocytes % 6.4 3.0 - 15.0 % 12/13/2017 7:50 PM [facility] Eosinophils % 1.9 0.0 - 6.0 % 12/13/2017 7:50 PM [facility] Basophil % 0.3 0.0 - 1.5 % 12/13/2017 7:50 PM [facility] Neutrophils Absolute 4.3 1.6 - 7.0 10 3/uL 12/13/2017 7:50 PM [facility] Lymphocyte Absolute 2.1 0.8 - 2.9 10 3/uL 12/13/2017 7:50 PM [facility] Monocytes Absolute 0.44 0.14 - 0.66 10 3/uL 12/13/2017 7:50 PM [facility] Eosinophils Absolute 0.13 0.00 - 0.22 10 3/uL 12/13/2017 7:50 PM [facility] Basophils Absolute 0.02 0.00 - 0.06 10 3/uL 12/13/2017 7:50 PM [facility] Immature Granulocytes % 0.1 0.0 - 1.0 % 12/13/2017 7:50 PM [facility] Blood BLOOD SPECIMEN / Unknown Lab Venipuncture / Unknown 12/13/2017 7:17 PM CDT 12/13/2017 7:45 PM CDT Roderick Cintron MD LAB - HEMATOLOGY ORD ERABLES [facility] [address] [phone] * (ABNORMAL) COMPREHENSIVE METABOLIC PANEL (12/13/2017 7:17 PM CDT) BUN 15 7 - 26 mg/dL 12/13/2017 8:07 PM [facility] Creatinine 1.6(H) 0.6 - 1.2 mg/dL 12/13/2017 8:07 PM [facility] Sodium 141 136 - 145 mmol/L 12/13/2017 8:07 PM [facility] Potassium 3.4(L) 3.5 - 4.5 mmol/L 12/13/2017 8:07 PM [facility] Chloride 110(H) 98 - 107 mmol/L 12/13/2017 8:07 PM [facility] CO2 20(L) 22 - 29 mmol/L 12/13/2017 8:07 PM [facility] Glucose 105 70 - 115 mg/dL 12/13/2017 8:07 PM [facility] Calcium 9.1 8.4 - 10.2 mg/dL 12/13/2017 8:07 PM [facility] Protein Total 6.4 6.0 - 8.3 g/dL 12/13/2017 8:07 PM [facility] Albumin 2.8(L) 3.4 - 5.0 g/dL 12/13/2017 8:07 PM [facility] Bilirubin Total 0.3 0.2 - 1.2 mg/dL 12/13/2017 8:07 PM [facility] Alkaline Phosphatase 47 40 - 150 Units/L 12/13/2017 8:07 PM [facility] ALT 7 0 - 55 Units/L 12/13/2017 8:07 PM [facility] AST 11 5 - 34 Units/L 12/13/2017 8:07 PM [facility] Anion Gap 14 8 - 18 12/13/2017 8:07 PM [facility] BUN/Creatinine Ratio 9 7 - 23 12/13/2017 8:07 PM CDT [facility] Osmolality Calculated 293 270 - 300 mOsm/kg 12/13/2017 8:07 PM CDT [facility] Albumin/Globulin Ratio 0.8(L) 1.1 - 2.3 12/13/2017 8:07 PM CDT [facility] eGFR 39(L) >60 mL/min/1.7 3 m2 12/13/2017 8:07 PM CDT [facility] Blood BLOOD SPECIMEN / Unknown Lab Venipuncture / Unknown 12/13/2017 7:17 PM CDT 12/13/2017 7:45 PM CDT Roderick Cintron MD LAB - CHEMISTRY [place] [facility] [address] [phone] * PHOSPHORUS BLOOD (12/13/2017 7:17 PM CDT) Phosphorus 3.5 2.3 - 4.7 mg/dL 12/13/2017 8:05 PM CDT [facility] Blood BLOOD SPECIMEN / Unknown Lab Venipuncture / Unknown 12/13/2017 7:17 PM CDT 12/13/2017 7:45 PM CDT Roderick Cintron MD LAB - CHEMISTRY [facility]PTA Performing Organization Address City/[facility]/ZIP Co de Phone Number [address] [phone] * MAGNESIUM BLOOD (12/13/2017 7:17 PM CDT) Magnesium 1.8 1.6 - 2.6 mg/dL 12/13/2017 8:07 PM CDT [facility] Blood BLOOD SPECIMEN / Unknown Lab Venipuncture / Unknown 12/13/2017 7:17 PM CDT 12/13/2017 7:45 PM CDT Roderick Cintron MD LAB - CHEMISTRY [place] [address], [facility] [phone] * LACTIC ACID BLOOD (12/13/2017 7:17 PM CDT) [facility] Lactic Acid-Stat 1.5 0.5 - 2.2 mmol/L 12/13/2017 8:03 PM CDT [facility] Blood BLOOD SPECIMEN / Unknown Lab Venipuncture / Unknown 12/13/2017 7:17 PM CDT 12/13/2017 7:45 PM CDT Roderick Cintron MD LAB - CHEMISTRY [place] [address], [facility] [phone] * CK BLOOD (12/13/2017 7:17 PM CDT) [facility] CK Total 52 30 - 200 Units/L 12/13/2017 8:07 PM CDT [facility] Blood BLOOD SPECIMEN / Unknown Lab Venipuncture / Unknown 12/13/2017 7:17 PM CDT 12/13/2017 7:45 PM CDT Roderick Cintron MD LAB - CHEMISTRY [place] [address], [facility] [phone] * CULTURE BLOOD (12/13/2017 7:16 PM CDT) [facility] Culture No growth day 5 [place] 12/18/2017 11:31 PM CDT [facility] [employer] [facility] Blood PERIPHERAL BLOOD / Unknown Lab Venipuncture / Unknown 12/13/2017 7:16 PM CDT 12/13/2017 7:45 PM CDT Roderick Cintron MD LAB - MICROBIOLOGY O RDERABLES [facility] [address] [place] [address], [facility] [phone] * (ABNORMAL) URINALYSIS W/MICROSCOPIC NO CULTURE (12/13/2017 6:24 PM [facility]) Color UA Yellow Straw, Yellow, Colorless, Light Yellow 12/13/2017 6:33 PM [facility] Clarity UA Clear Clear 12/13/2017 6:33 PM [facility] Specific [place] UA 1.006 1.001 - 1.030 12/13/2017 6:33 PM [facility] pH UA 5.5 5.0 - 8.0 12/13/2017 6:33 PM [facility] Protein UA Negative <=20 mg/dL 12/13/2017 6:33 PM [facility] Glucose UA Negative Negative mg/dL 12/13/2017 6:33 PM [facility] Ketone UA Negative Negative mg/dL 12/13/2017 6:33 PM [facility] Bilirubin UA Negative Negative mg/dL 12/13/2017 6:33 PM [facility] Blood UA Moderate(A) Negative 12/13/2017 6:33 PM [facility] Nitrite UA Negative Negative 12/13/2017 6:33 PM [facility] Leukocyte Esterase Negative Negative 12/13/2017 6:33 PM [facility] Urobilinogen UA <2.0 <2.0 mg/dL 8 6:33 PM [facility] RBC UA 2 0 - 8 /HPF 12/13/2017 6:33 PM [facility] WBC UA 1 0 - 2 /HPF 12/13/2017 6:33 PM [facility] Bacteria UA Rare Rare, Occasional, None /HPF 12/13/2017 6:33 PM [facility] Squamous Epithelial Cells UA <1 0 - 1 /HPF 12/13/2017 6:33 PM [facility] Mucus UA Rare(A) None /LPF 12/13/2017 6:33 PM [facility] Urine URINE SPECIMEN OBTAINED BY CLEAN CATCH PROCEDURE / Unknown Collection / Unknown 12/13/2017 6:24 PM CDT 12/13/2017 6:28 PM T Roderick Cintron MD LAB - URINALYSIS ORD ERABLES [facility] [address] [place] [address], [facility] [phone] * CULTURE URINE (12/13/2017 6:24 PM CDT) Culture Urine No growth (<100 CFU/mL) [place] 12/15/2017 6:23 AM CDT [facility] Urine URINE SPECIMEN OBTAINED BY CLEAN CATCH PROCEDURE / Unknown Collection / Unknown 12/13/2017 6:24 PM CDT 12/13/2017 6:28 PM CDT Roderick Cintron MD LAB - MICROBIOLOGY O RDERABLES Performing Organization Address City/[facility]/ZIP Co de Phone Number [facility] [address] [place], [place] [address], [facility] [phone] Care Teams Auto Body Estimator Relationship Specialty Start Date End Date Ryan Metz MD [address] [place] [address] PCP - General 05/15/17
--- OUTSIDE RECORDS SUMMARY | 2024-05-27 15:42 | XMS_ITS | Clinical Summary ---
Author Organization [facility] Address [address] [place] [address] Care Team Providers Care Supportability Engineer Name Role Phone Catalino Koch MD Unavailable Bhavna Ventura PA-C Primary Care Provider [phone] Allergies Active Allergy Reactions Criticality Noted Date [...] tablet TAKE 1 TABLET(75 MCG) BY MOUTH INSURANCE SPECIAL AGENT BEFORE BREAKFAST 3 Active montelukast (SINGULAIR) 10 [...] 08/16/2022 Assessment & Plan (04/25/2023 10:27 AM CLIMATOLOGY TEACHER): Recommendation at this time is to continue with her home exercise program for the ankle. Patient will be seen back as needed. Assessment & Plan (01/31/2023 6:49 PM CLIMATOLOGY TEACHER): We got her set up to go [...] 05/27/2024 1:49 PM CDT - Present Emergency [facility] [address] [place] [address] Tamela Barreto MD Abdominal Pain 05/27/2024 Travel [...] (#1) 2023 01/05/2012, 01/22/2004, 01/06/2003 PHQ-2 (Physician [place]) 03/13/2024 10/11/2023 Cervical Cancer Screening Pap Smear [...] on patient's age to complete this topic Procedures * The patient is currently admitted. The information in this section might not be complete until the patient is discharged. Procedure Name Priority Date/Time Associated Diagnosis Comments LIPASE STAT 05/27/2024 2:38 PM CDT COMPREHENSIVE METABOLIC PANEL STAT 05/27/2024 2:38 PM CDT PARTIAL THROMBOPLASTIN TIME,PTT STAT 05/27/2024 2:38 PM CDT PROTHROMBIN TIME, VENOUS STAT 05/27/2024 2:38 PM CDT CBC W/DIFF AUTOMATED STAT 05/27/2024 2:38 PM CDT from Last 3 Months Results * PARTIAL THROMBOPLASTIN TIME,PTT (05/27/2024 2:38 PM CDT) PTT 35.5 27.0 - 36.8 SEC 05/27/2024 2:51 PM CDT [facility] 05/27/2024 2:38 PM CDT us Tamela Barreto MD LABORATORY Final Result Performing Organization Address City/[facility] Co de Phone Number [facility] [address] [place] [address], [place] [phone] * (ABNORMAL) PROTIME/INR, VENOUS (05/27/2024 2:38 PM CDT) PROTIME 13.2(H) 9.1 - 12.4 SEC 05/27/2024 2:51 PM CDT [facility] INR 1.1 05/27/2024 2:51 PM CDT [facility] Comment: Recommend INR ranges for Oral Anticoagulant Therapy: Mechanical Cardiac Values 2.5-3.5 All others indication 2.0-3.0 05/27/2024 2:38 PM CDT us Tamela Barreto MD LABORATORY Final Result Performing Organization Address City/[facility]/ZIP Co de Phone Number [facility] [address] [place] [phone], * (ABNORMAL) COMPREHENSIVE METABOLIC PANEL (05/27/2024 2:38 PM CDT) [facility] GLUCOSE 106(H) 70 - 99 MG/DL 05/27/2024 2:57 PM CDT [facility] BUN 12 7 - 18 MG/DL 05/27/2024 2:57 PM CDT [facility] CREATININE S/P/B 0.63 0.55 - 1.02 MG/DL 05/27/2024 2:57 PM CDT [facility] SODIUM S/P/B 139 136 - 145 MMOL/L 05/27/2024 2:57 PM CDT [facility] POTASSIUM S/P/B 3.7 3.5 - 5.1 MMOL/L 05/27/2024 2:57 PM CDT [facility] CHLORIDE S/P/B 104 100 - 108 MMOL/L 05/27/2024 2:57 PM CDT [facility] CO2 21.7 21 - 32 MMOL/L 05/27/2024 2:57 PM CDT [facility] CALCIUM S/P/B 9.6 8.5 - 10.1 MG/DL 05/27/2024 2:57 PM CDT [facility] BILIRUBIN TOTAL S/P/B 0.8 0.2 - 1.2 MG/DL 05/27/2024 2:57 PM CDT [facility] TOTAL PROTEIN S/P/B 7.4 6.4 - 8.2 G/DL 05/27/2024 2:57 PM T [facility] ALBUMIN S/P/B 3.8 3.4 - 5.0 G/DL 05/27/2024 2:57 PM CDT [facility] AST 48(H) 15 - 37 U/L 05/27/2024 2:57 PM CDT [facility] ALT 62(H) 14 - 55 U/L 05/27/2024 2:57 PM CDT [facility] ALKALINE PHOSPHATASE S/P/B 125 50 - 136 U/L 05/27/2024 2:57 PM CDT [facility] ANION GAP 13.3 5 - 15 MMOL/L 05/27/2024 2:57 PM CDT [facility] BUN CREATININE RATIO 19.0 6 - 26 05/27/2024 2:57 PM CDT [facility] A/G RATIO 1.1 1.0 - 2.0 RATIO 05/27/2024 2:57 PM CDT [facility] GFR ESTIMATE >90 >90 ML/MIN/1.7 3 M2 05/27/2024 2:57 PM CDT [facility] Comment: NOTE: eGFR is not calculated for patients <18 years of age. This is an estimated GFR calculation using the new CKD EPI creatinine equation without race and so does not require a correction factor for race. This estimated GFR should not be used for calculating drug doses. 05/27/2024 2:38 PM CDT us Tamela Barreto MD LABORATORY Final Result [facility] [address] [place] [address], * (ABNORMAL) CBC W/DIFF AUTOMATED (05/27/2024 2:38 PM CDT) WBC 8.63 4.4 - 11.0 x10'3/uL 05/27/2024 2:43 PM CDT [facility] RBC 4.30(L) 4.50 - 5.10 x10'6/uL 05/27/2024 2:43 PM CDT [facility] HGB 12.8 12.3 - 15.3 G/DL 05/27/2024 2:43 PM CDT [facility] HCT 38.4 35.9 - 44.6 % 05/27/2024 2:43 PM CDT [facility] MCV 89.3 80.0 - 96.0 FL 05/27/2024 2:43 PM CDT [facility] MCH 29.8 25.3 - 30.9 PG 05/27/2024 2:43 PM CDT [facility] MCHC 33.3 31.0 - 34.1 G/DL 05/27/2024 2:43 PM CDT [facility] RDW 12.5 12.4 - 15.1 % 05/27/2024 2:43 PM CDT [facility] PLT 361(H) 151 - 353 x10'3/uL 05/27/2024 2:43 PM T [facility] MPV 9.3(L) 9.6 - 12.0 FL 05/27/2024 2:43 PM CDT [facility] RBC MORPHOLOGY NORMAL 05/27/2024 2:43 PM T [facility] PLT MORPH. NORMAL 05/27/2024 2:43 PM CDT [facility] WBC MORPHOLOGY NORMAL 05/27/2024 2:43 PM CDT [facility] LYMPHOCYTES % 19.5 15.8 - 45.0 % 05/27/2024 2:43 PM CDT [facility] NEUTROPHILS % 66.3 42.1 - 71.9 % 05/27/2024 2:43 PM CDT [facility] MONOCYTES % 7.4 5.7 - 12.5 % 05/27/2024 2:43 PM CDT [facility] EOSINOPHILS 5.8(H) 0.0 - 5.6 % 05/27/2024 2:43 PM CDT [facility] BASOPHILS 0.7 0.0 - 1.3 % 05/27/2024 2:43 PM CDT [facility] ABS. NEUTROPHILS 5.72 1.40 - 6.00 x10'3/uL 05/27/2024 2:43 PM CDT [facility] IMMATURE GRANS % 0.3 0.0 - 0.5 % 05/27/2024 2:43 PM CDT [facility] ABS. LYMPHOCYTES 1.68 0.80 - 4.70 x10'3/uL 05/27/2024 2:43 PM CDT [facility] 05/27/2024 2:38 PM CDT Tamela Barreto MD LABORATORY Final Result [facility] [address] [place] [address], [place] [phone] * LIPASE (05/27/2024 2:38 PM CDT) LIPASE 29 16 - 77 UNITS/L 05/27/2024 2:57 PM CDT [facility] 05/27/2024 2:38 PM CDT Tamela Barreto MD LABORATORY Final Result [facility] [address] [place] [address], [place] [phone] from Last 3 Months Insurance [employer] Care Teams Supportability Engineer Relationship Specialty Start Date End Date Bhavna Ventura PA-C [facility] [place] [address] PCP - General PHYSICIAN CONDENSER CLEANER 05/27/24 Catalino Koch MD [address] [facility] [address] [place] [address] GENERAL SURGERY 05/27/24
--- OUTSIDE RECORDS SUMMARY | 2024-05-27 15:42 | XMS_ITS | Encounter Summary ---
Author Organization [facility] Address [address] [facility] [place] [address] Care Team Providers Care Warehouse Stocker Name Role Phone Ryan Metz MD Primary Care Provider [phone] Encounter Details Date Type Department Care Team (Late st Contact Info) Description 12/14/2023 Lab Requisition [facility] - DermPath Lab [address] [facility], [place] [phone] Fina Cueto MD [address] [facility] [address] [place] [address] Social History Tobacco Use Types [...] AM CDT) Case Report Dermatopathology Report Case: [id number] Authorizing Provider: Fina Cueto MD Collected: 12/14/2023 [...] The specimen is serially sectioned and a passenger service representative section is submitted in cassette 1. [...] characteristic determined by the Dermatopathology Laboratory at [facility], directed by Dr. Tigre Fenton. These tests need not be, and therefore are not, approved by the [place] Food and Drug Administration. The tests are used for clinical purposes. Billing Codes Specimen Charges Stain Charges 82929 1 67056 26011 35981 25672 66829 54372 1 1 1 1 1 1 4 3:57 PM CDT DERMATOPATHOLOGY LABORATORY Embedded Images 4 3:57 PM CDT DERMATOPATHOLOGY LABORATORY Pathology/Cytolog y TISSUE SPECIMEN FROM SKIN / Unknown 12/14/2023 12/18/2023 8:49 AM CDT Fina Cueto MD LAB - PATHOLOGY/CYTO LOGY ORDERABLES DERMATOPATHOLOGY LABORATORY [facility] - Department of Dermatology [address], [address] Floor [address] [phone] documented in this encounter Visit Diagnoses Not on filedocumented in this encounter Care Teams Warehouse Stocker Relationship Specialty Start Date End Date Ryan Metz MD [address] [place] [address] [place] [address] PCP - General 05/15/17 documented as of this encounter
== END 2024-05-27 13:14 | disposition left against medical advice (07) ==
LOC: ANHED 13:12
PROVIDERS: PCP Physician Assistant Medical
DX: Z53.21 Procedure and treatment not carried out due to patient leaving prior to being seen by health care provider (principal)
CPT/HCPCS: 99199

== ENCOUNTER 2024-05-27 23:05 | Inpatient (IN) | payer OTHER, SELFPAY ==
--- NOTE | ~2024-05-27 | CT_ITS ---
CT of the Abdomen and Pelvis: Indication: Postoperative abdominal pain Technique: 2.5 mm axial scans were obtained through the abdomen and pelvis following intravenous adm inistration of 100 cc of Omnipaque 350. Dose reduction technique was used on this scan by utilizing a utomated exposure control and iterative reconstruction technique. The dose-length product (DLP) was 1 659.06 mGy-cm. COMPARISON: 09/13/2023 Findings: Scans through the lung bases are unremarkable. The liver, spleen, pancreas, adrenals and kidneys are within normal limits. Cholecystectomy clips are present. Mild haziness of the gallbladder fossa is probably related to recent surgery. No abscess or fluid collection evident. No evidence of aortic aneurysm. No lymphadenopathy. No bowel obstruction or bowel wall thickening. There is no evidence to suggest acute appendicitis. Images through the pelvis were performed. Urinary bladder decompressed around a Echevarria catheter. Air i n urinary bladder is probably related to catheterization. No pelvic mass. No ascites. Impression: Status post cholecystectomy with probable expected postoperative changes about the gallbladder fossa. No abnormal fluid collection or abscess. Reviewed, dictated and finalized at location . Impression: Status post cholecystectomy with probable expected postoperative changes about the gallbladder fossa. No abnormal fluid collection or abscess.
--- NOTE | 2024-05-27 20:00 | ADMGEN ---
This patient, Latrice Tate, was admitted to 3 [facility] Surg Room 300-01. Patient/family oriented to hospital policies and general routines including ID bracelet, bed and alarms, visiting hours, pain management, procedures, bathroom and other care routines, personal items, smoking policy, room service/diet, and visiting hours. Information on how to activate the Rapid Response Team has been discussed. Patient/Family are encouraged to report perceived risks to care and to ask questions if they do not understand what they are told or what they should do.
--- OUTSIDE RECORDS SUMMARY | 2024-05-27 20:03 | XMS_ITS | Encounter Summary ---
Author Organization [facility] Address [address] [place] [address] Care Team Providers Care Chain Hoist Operator Name Role Phone Petey York MD Primary Care Provider [phone] Catalino Koch MD Unavailable Bhavna VenturaC Primary Care Provider [phone] Encounter Details Date Type Department Care Team (Late st Contact Info) Description 10/13/2023 Treatspace Message Enc [facility] Family & Internal Medicine [facility] [id number] [place] [phone] Rebekah Riley PA [address] [place] [address] Antibiotics/yeast Social History Tobacco Use Types [...] on filedocumented in this encounter Care Teams Chain Hoist Operator Relationship Specialty Start Date End Date Petey York MD [facility] [place] [address] PCP - General FAMILY PRACTICE 01/17/23 05/26/24 Bhavna Ventura PA-C [address] [place], [place] [address] [place] [address] PCP - General PHYSICIAN SILVER RECOVERY OPERATOR 05/27/24 Catalino Koch MD [address] [facility] [address] [place] [address] GENERAL SURGERY 05/27/24 documented as of this encounter
--- OUTSIDE RECORDS SUMMARY | 2024-05-27 20:03 | XMS_ITS | Encounter Summary ---
Author Organization [facility] Address [address] [place] [address] Care Team Providers Care Auto Motor Mechanic Name Role Phone Bhavna Ventura PA-C Primary Care Provider [phone] Petey York MD Primary Care Provider [phone] Catalino Koch MD Unavailable Bhavna Ventura PA-C Primary Care Provider [phone]- [phone] Encounter Details Date Type Department Care Team (Late st Contact Info) Description 12/28/2022 [place] Message Enc [facility] [address] [facility] [address] [place] [address] [place] [address] [place] [address] pain Social History Tobacco Use [...] on filedocumented in this encounter Care Teams Auto Motor Mechanic Relationship Specialty Start Date End Date Bhavna Ventura PA-C [address] [place] [address] [address] [place] [address] PCP - General PHYSICIAN TUBE CUTTER 12/24/21 01/16/23 Petey York MD [address] [place] [address] PCP - General FAMILY PRACTICE 01/17/23 05/26/24 Bhavna Ventura PA-C [address] [place], [place] [address] [place] [address] PCP - General PHYSICIAN TUBE CUTTER 05/27/24 Catalino Koch MD [address] [facility] [address] [place] [address] GENERAL SURGERY 05/27/24 documented as of this encounter
--- OUTSIDE RECORDS SUMMARY | 2024-05-27 20:04 | XMS_ITS | Referral Summary ---
Author Organization [facility] Address [address] [place] [phone] Care Team Providers Care Cruise Coordinator Name Role Phone Uziel Teofilo Jones MD Unavailable Arian Eaton MD Unavailable [phone] Nathan Fish MD Unavailable [phone] Shara Monreal MD Unavailable Malorie Malcolm NP Unavailable Petey York MD Primary Care Provider [phone] Encounters Date Type Department Care Team Description 05/06/2024 Orders Only [facility] [address] [place] [phone] Nathan Fish MD Invasive ductal carcinoma of breast, female, right (HCC) (Primary Dx); Malignant 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, estrogen receptor negative (HCC) 05/06/2024 Documentation [facility] [address] [place] [phone] Inessa Heart RC 05/06/2024 2:00 PM STAFF ACCOUNTANT Office Visit [facility] Radiation Oncology [address] [place] [phone] Arian Eaton MD Malignant 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, estrogen receptor negative (HCC) (Primary Dx) 05/06/2024 2:45 PM STAFF ACCOUNTANT Office Visit [facility] [address] [place] [address] [address] [place] [phone] Nathan Fish MD Malignant 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, estrogen receptor negative (HCC) (Primary Dx) 02/29/2024 Telephone [facility] [address] [facility] [address] [place] [address] Jocelin Jones RN Follow-Up Call 24-48 Hours; Test Results 02/28/2024 10:30 AM STAFF ACCOUNTANT - 02/28/2024 11:59 PM STAFF ACCOUNTANT Hospital Encounter [facility] [address] [facility] [address] [place] [address] Abnormal MRI, breast Discharge Disposition: Discharge to home or self care 02/28/2024 7:24 AM STAFF ACCOUNTANT - 02/28/2024 11:59 PM STAFF ACCOUNTANT Hospital Encounter [facility] [address] [place] [address] Abnormal MRI, breast Discharge Disposition: [...] tablet TAKE 1 TABLET(75 MCG) BY MOUTH METAL BENCH PATTERNMAKER BEFORE BREAKFAST 90 tablet 1 11/03/19 24 [...] (07/30/2021): Added automatically from request for surgery [id number] Malignant neoplasm 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, estrogen receptor negative 07/23/2021 Cancer Staging:Clinical stage from 07/20/2021:Stage IB(cT1c, cN0, cM0, G3, ER-, WI-, HER2-) - Signed by Arian Eaton MD on 07/30/2021 Pathologic stage from 02/10/2022:No Stage Recommended(ypT0, pN0(sn), cM0, GX, ER- , WI-, HER2-) - Signed by Arian Eaton MD on 03/09/2022 Endometriosis 10/22/2019 Overview (10/22/2019): Added automatically from request for surgery [id number] Pelvic and perineal pain 10/22/2019 Overview (10/22/2019): Added automatically from request for surgery [id number] Persistent proteinuria 10/25/2018 Recurrent UTI 10/25/2018 Asymptomatic [...] on file Legal Sex Female 12:06 AM STAFF ACCOUNTANT Gender Identity Not on file Sexual Orientation Not on file Occupation Industry Job Start Date Job End Date [employer] Not on file Not on file Not on file Last Filed Vital Signs Vital Sign Reading Time Taken Comments Blood Pressure 126/82 05/06/2024 1:56 PM STAFF ACCOUNTANT Pulse 98 05/06/2024 1:56 PM STAFF ACCOUNTANT Temperature 36.1 C (97 F) 05/06/2024 2:30 PM STAFF ACCOUNTANT Respiratory Rate 18 05/06/2024 1:56 PM STAFF ACCOUNTANT Oxygen Saturation 100% 05/06/2024 1:56 PM STAFF ACCOUNTANT Inhaled Oxygen Concentration - - Weight 95.7 kg (211 lb) 05/06/2024 2:30 PM STAFF ACCOUNTANT Height 162.6 cm (5' 4 ) 05/06/2024 2:30 PM STAFF ACCOUNTANT Body Mass Index 36.22 05/06/2024 2:30 PM STAFF ACCOUNTANT Plan of Treatment Not on file Medical Devices Implanted Type Area Manager Corporate Strategy Device Identifier Shelf Expiration Date Model / Serial / Lot [employer] Magseed 18ga 7cm Marker Breast Biopsy [id number] Right: Breast General [employer] [id number] 12/10/2025 [id number] / / [id number] [email or web address] [facility] Trimark Second Marker Breast Biopsy Disposable Trimark Td 2s 13-Mr - [id number] Implanted:Qty: 1 on 02/28/2024 by Consuelo Altman MD at [facility] Right: Breast [email or web address] [id number] 06/13/2025 TRIMARK TD 2S 13-MR / / [id number] Explanted Type Area Manager Corporate Strategy Device Identifier Shelf Expiration Date Model / Serial / Lot [employer] Powerport Isp Mri Airguard 8fr 1 Lumen Attachable Catheter Open Latex Free [id number] - [id number] Implanted:Qty: 1 on 08/06/2021 by Koffi Brandon MD at [facility] Explanted:Qty: 1 Right: Chest [employer] 09/09/2022 [id number] / / [id number] Procedures Procedure Name Priority Date/Time Associated Diagnosis Comments MAMM POST CLIP PLACEMENT RIGHT Schedule Routine, Read Routine (OP Routine) 02/28/2024 10:50 AM STAFF ACCOUNTANT Abnormal MRI, breast MRI GUIDED BREAST BIOPSY RIGHT Schedule Routine, Read Routine (OP Routine) 02/28/2024 10:28 AM STAFF ACCOUNTANT Abnormal MRI, breast SURGICAL PATHOLOGY Routine 02/28/2024 10:01 AM STAFF ACCOUNTANT Abnormal MRI, breast PAP AND HPV, REFLEX TO HPV GENOTYPES Routine 09/18/2023 4:32 AM CDT Screening for cervical cancer Screening for human papillomavirus (HPV) HEPATITIS C ANTIBODY Routine 07/11/2022 1:00 PM CDT from Last 3 Months or Most Recently Relevant to Health Maintenance Results * Mammo Post Clip Placement Right (02/28/2024 10:50 AM STAFF ACCOUNTANT) Anatomical Region Laterality Modality Breast Right Mammography 02/28/2024 11:3 1 AM STAFF ACCOUNTANT Addenda Addendum by Consuelo Altman MD on 02/29/2024 4:10 PM STAFF ACCOUNTANT Pathology report for MRI guided core needle [...] patient by the nursing staff of the [facility]. Electronically signed by: Consuelo Altman M.D. Impressions 02/28/2024 11:31 AM STAFF ACCOUNTANT Successful MRI guided biopsy of enhancement in the lumpectomy site of the right breast. Pathology report is pending. ASSESSMENT: Post-procedure mammogram for marker placement. Electronically signed by: Consuelo Altman M.D. Narrative 02/28/2024 11:31 AM STAFF ACCOUNTANT MRI GUIDED CORE NEEDLE BIOPSY RIGHT BREAST, [...] made with a #11 blade. A 9-gauge [facility] vacuum-assisted biopsy needle was advanced to [...] tolerated the procedure well, and left the [facility] in good condition, without evidence of immediate complication. us Nathan Fish MD IMG MAMMO PROCEDURES Edite d Result - Final * MRI Guided Breast Biopsy Right (02/28/2024 10:28 AM STAFF ACCOUNTANT) Anatomical Region Laterality Modality Breast Right Magnetic Resonan ce 02/28/2024 11:3 1 AM STAFF ACCOUNTANT Addenda Addendum by Consuelo Altman MD on 02/29/2024 4:10 PM STAFF ACCOUNTANT Pathology report for MRI guided core needle [...] patient by the nursing staff of the [facility]. Electronically signed by: Consuelo Altman M.D. Impressions 02/28/2024 11:31 AM STAFF ACCOUNTANT Successful MRI guided biopsy of enhancement in the lumpectomy site of the right breast. Pathology report is pending. ASSESSMENT: Post-procedure mammogram for marker placement. Electronically signed by: Consuelo Altman M.D. Narrative 02/28/2024 11:31 AM STAFF ACCOUNTANT MRI GUIDED CORE NEEDLE BIOPSY RIGHT BREAST, [...] made with a #11 blade. A 9-gauge [facility] vacuum-assisted biopsy needle was advanced to [...] tolerated the procedure well, and left the [facility] in good condition, without evidence of immediate complication. us Nathan Fish MD [facility] MRI PROCEDURES Edited Result - Final * Surgical pathology (02/28/2024 10:01 AM STAFF ACCOUNTANT) Tissue (Breast biopsy, needle core) 02/28/2024 10:01 AM STAFF ACCOUNTANT Narrative PATHOLOGY [facility] - 02/29/2024 12:16 PM STAFF ACCOUNTANT [address] [address] Tele: Jocelin Browne MD - Roof Cement And Paint Maker Helper Note to Patients: This report may contain [...] PATHOLOGY REPORT Patient Name: LATRICE TATE Address: [address] [place] [address] Gender: F : 1990 (Age: 34) Service: Location: , Hospital #: [id number] Patient [place]: [facility] [place] Taken: 02/28/2024 Received 02/28/2024 Reported: 02/29/2024 Physician(s): [facility] - Dr. Altman DIAGNOSIS: Breast, right breast abnormal enhancement, needle biopsy: - Hyalinized fibroadenoma - Focal fat necrosis [facility]/02/29/2024 12:16 Examining Pathologist: Mildred Gonzales M.D. [...] is entirely submitted in cassettes labeled A1-A3. [facility] MICROSCOPIC DESCRIPTION: Microscopic examination supports the above captioned diagnosis. There is no atypical hyperplasia or malignancy. Clerical Data Follows A; 13392 REPORT IMAGES AND/OR SCANNED DOCUMENTS ONLY VIEWABLE IN PDF FORMAT The immunohistochemical test(s) cited in this report, if any, was developed and its performance characteristics determined by [facility]ology Department. It has not been cleared or approved by the U.S. Food and Drug Administration. The FDA has determined that such clearance or approval is not necessary. This test is used for clinical purposes. It should not be regarded as investigational or for research. [facility] is certified under the Clinical [...] part or completely in the following laboratories: [facility], [address], [place] [address] [facility], [address], [place] [address]. us Nathan Fish MD LAB PATHOLOGY ORDERABLES F inal Result PATHOLOGY [facility] Laboratory Receiving [address] [place], [place] [id number] * (ABNORMAL) Pap and HPV, reflex to [...] 09/20/2023 2:11 PM CDT Performed at: - [address] [id number] Laser Specialist: Yumiko Hubbard MD, Phone: [phone] Performed at: 02 - [address] [id number] Laser Specialist: Yumiko Hubbard MD, Phone: [phone] Specimen Comment: Source.............Cervix;Endocervix Specimen Comment: No. of containers..01 ThinPrep Vial Shara Monreal MD LAB CYTOLOGY ORDERABLES F inal Result Performing Organization Address City/[facility]/ZIP Co de Phone Number [facility] - 01 LAB [place] 02 * Hepatitis C antibody (07/11/2022 1:00 PM CDT) Hep C Ab Nonreactive Nonreactive [facility] Comment: Interpretive Data Nonreactive: Antibodies to HCV [...] GENERA L ORDERABLES Edited Result - Final [facility] [address] Department [place] [address] from Last 3 Months or Most Recently Relevant to Health Maintenance Insurance HMO HMO O Care Teams Cruise Coordinator Relationship Specialty Start Date End Date Petey York MD [address] [place] [address] PCP - General Family Medicine 03/01/22 Teofilo Triplett MD [address] [place] [address] Medical Oncologist/Manager Poker Hematology and Oncology 07/22/21 Arian Eaton MD [address] [place] [address] Consulting Physician Radiation Oncology 07/22/21 Nathan Fish MD [address] [facility] [address] [place] [address] Consulting Physician Surgical Oncology 07/28/21 Shara Monreal MD [address] [place] [address] Consulting Physician Obstetrics and Gynecology 07/28/21 Malorie Malcolm NP [address] [place] [address] Nurse Practitioner Surgery 12/22/21
--- OUTSIDE RECORDS SUMMARY | 2024-05-27 20:04 | XMS_ITS | Continuity of Care Document ---
Author Organization [facility] Address [address] [place] [address] [address] [place] [address] Phone Care Team Providers Care Motor Grader Rough Grade Name Role Phone Donald JAE Marla Unavailable [...] Pack Manual Therapy Therapeutic Activities Neuromuscular Re-Ed Hot or Cold [...] Date Provider Providers Copied on Encounter [facility] [address], [place], [place], [id number], [place] tel:[phone] [facility] No Information Donald Gutiérrez. . Referring Provider: Delfino Cesar Laura [address], [place], [address]. tel:[phone] [place] [address], [address] [place], [place] [address], [place], [place], [id number], tel:[phone] [facility] No Information Donald Gutiérrez. . Referring Provider: Delfino Cesar Laura [address], [place], [address]. tel:[phone] [place] [address] [place], [place] [address], [place], [place], [address], tel:[phone] [facility] No Information Arleth Barker. . Referring Provider: Delfino Cesar [facility]lene [facility] [address], [place], [address]. tel:[phone] [place] [address] [place], [place] [address], [place], [id number], tel:[phone] [facility] No Information Arleth Barker. . Referring Provider: Delfino Cesar BrigetteKaylene [address], [place], [address]. tel:[phone] [place] [address] [place], [place] [address], [place], [place], [address], tel:[phone] [facility] No Information Arlethdoreen Barker. . Referring Provider: Delfino Cesar BrigetteKaylene [address], [place], [address]. tel:[phone] [facility] [address] [place], [place] [address], [place], [place], [address], tel:[phone] [facility] No Information Arleth Barker. . Referring Provider: Delfino Cesar BrigetteKaylene [address], [place], [address]. tel:[phone] [facility], [place], [place], [address], [place] tel:[phone] [facility] No Information Arleth Mj. . Referring Provider: Delfino Cesar BrigetteKaylene [address], [place], [address]. tel:[phone] [place] [address] [address], [place], [place], [address], [place] tel:[phone] [facility] No Information Arleth Mj. . Referring Provider: Laura Albright [address], [place], [address]. tel:[phone] [place], [place] [address] [address], [place], [place], [address], tel:[phone] [facility] No Information Arleth Mj. . Referring Provider: Larua Albright [address], [place], [address]. tel:[phone] [place], [place] [address] [address], [place], [place], [address], tel:[phone] [facility] No Information Arleth Mj. . Referring Provider: Laura Albright [address], [place], [address]. tel:[phone] [facility], [place], [place], [address], [place] tel:[phone] [facility] No Information Arleth Mj. . Referring Provider: Delfino Cesar BrigetteKaylene [address], [place], [address]. tel:[phone] [facility], [place], [place], [address], [place] tel:[phone] [facility] No Information Arleth Barker. . Referring Provider: Delfino Cesar, Laura [address], [place], [address]. tel:[phone] [place], [place] [address] [address], [place], [place], [address], tel:[phone] [facility] No Information Arleth Barker. . Referring Provider: Delfino Cesar Laura [address], [place], [address]. tel:[phone] [place] [address] [address], [place], [place], [address], [place] tel:[phone] [facility] No Information Arlethalex Barker. . Referring Provider: Delfino Cesar BrigetteKaylene [address], [place], [address]. tel:[phone] [place], [place] [address] [address], [place], [place], [address], tel:[phone] [facility] No Information Arleth Barker. . Referring Provider: Delfino Cesar BrigetteKaylene [address], [place], [address]. tel:[phone] [place] [address] [place], [place] [address], [place], [place], [address], tel:[phone] [facility] No Information Arleth Barker. . Referring Provider: Delfino Cesar BrigetteKaylene [address], [place], [address]. tel:[phone] [place], [place] [address] [address], [place], [place], [address], tel:[phone] [facility] No Information Arleth Barker. . Referring Provider: Delfino Cesar BrigetteKaylene [address], [place], [address]. tel:[phone] [place], [place] [address] [address], [place], [address], [place] tel:[phone] [facility] No Information Arleth Barker. . Referring Provider: Delfino Cesar, Laura [facility] [address], [place], [address]. tel:[phone] [place] [address] [address] [facility], [place], [place], [address], tel:[phone] [facility] No Information Arleth Barker. . Referring Provider: Delfino Cesar Laura [facility] [address], [place], [address]. tel:[phone] [place] [address], [address] [facility], [place], [place], [address], tel:[phone] [facility] No Information Arelth Barker. . Referring Provider: Delfino Cesar BrigetteKaylene [facility] [address], [place], [address]. tel:[phone] [place] [address] [address] [facility], [place], [place], [address], tel:[phone] [facility] No Information Arleth Barker. . Referring Provider: Delfino Cesar BrigetteKaylene [facility] [address], [place], [address]. tel:[phone] [place] [address] [address], [place], [place], [address], tel:[phone] [facility] No Information Arleth Barker. . Referring Provider: Delfino Cesar BrigetteKaylene [facility] [address], [place], [address]. tel:[phone] [place], [place] [address] [address], [place], [place], [address], tel:[phone] [facility] No Information Arleth Barker. . Referring Provider: Delfino Cesar, [address], [place], [address]. tel:[phone] Family History Family Member Type Diagnosis Age At Onset No Information Payers Payer name Insurance type Covered green party ID Renan caba(annie Rey [id number] Geena GALEANO LI 00 Social History Type [...]
--- OUTSIDE RECORDS SUMMARY | 2024-05-27 20:04 | XMS_ITS | Clinical Summary ---
Author Organization [facility] Address [address] [place] [address] Care Team Providers Care Security Systems Administrator Name Role Phone Uziel Teofilo Jones MD Unavailable [phone] Arian Eaton MD Unavailable [phone] Nathan Fish MD Unavailable [phone] Shara Monreal MD Unavailable [phone] Malorie Malcolm NP Unavailable Petey York MD Primary Care Provider [phone] Allergies Active Allergy Reactions Criticality Noted Date [...] tablet TAKE 1 TABLET(75 MCG) BY MOUTH REMARKETING MANAGER BEFORE BREAKFAST 90 tablet 1 11/03/19 24 [...] (07/30/2021): Added automatically from request for surgery [id number] Malignant neoplasm 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, estrogen receptor negative 07/23/2021 Cancer Staging:Clinical stage from 07/20/2021:Stage IB(cT1c, cN0, cM0, G3, ER-, HI-, HER2-) - Signed by Arian Eaton MD on 07/30/2021 Pathologic stage from 02/10/2022:No Stage Recommended(ypT0, pN0(sn), cM0, GX, ER- , HI-, HER2-) - Signed by Arian Eaton MD on 03/09/2022 Endometriosis 10/22/2019 Overview (10/22/2019): Added automatically from request for surgery [id number] Pelvic and perineal pain 10/22/2019 Overview (10/22/2019): Added automatically from request for surgery [id number] Persistent proteinuria 10/25/2018 Recurrent UTI 10/25/2018 Asymptomatic microscopic hematuria 10/25/2018 Acute kidney injury 12/13/2017 Resolved Problems Problem Noted Date Diagnosed Date Resolved Date Post-operative state 02/22/2022 024 Encounters Date Type Department Care Team Description 05/06/2024 2:45 PM ENTRY ANALYST Office Visit [facility] [address] [place] [address] Nathan Fish MD Malignant 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, estrogen receptor negative (HCC) (Primary Dx) 05/06/2024 2:00 PM ENTRY ANALYST Office Visit [facility] Radiation Oncology [facility] [place] [address] Arian Eaton MD Malignant 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, estrogen receptor negative (HCC) (Primary Dx) 05/06/2024 Orders Only [facility] [address] [facility] [address] [place] [address] Nathan Fish MD Invasive ductal carcinoma of breast, female, right (HCC) (Primary Dx); Malignant 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, estrogen receptor negative (HCC) 05/06/2024 Documentation [facility] [address] [place] [phone] In[facility] RC 02/29/2024 Telephone [facility] - Imaging [address] [place] [address] [address] [place] [phone] Jocelin Jones, YANNA Follow-Up Call 24-48 Hours; Test Results 02/28/2024 10:30 AM ENTRY ANALYST - 02/28/2024 11:59 PM ENTRY ANALYST Hospital Encounter [facility] [address] [place] [phone] Abnormal MRI, breast Discharge Disposition: Discharge to home or self care 02/28/2024 7:24 AM ENTRY ANALYST - 02/28/2024 11:59 PM ENTRY ANALYST Hospital Encounter [facility] [address] [place] [phone] Abnormal MRI, breast Discharge Disposition: Discharge to [...] on file Legal Sex Female 12:06 AM ENTRY ANALYST Gender Identity Not on file Sexual Orientation Not on file Occupation Industry Job Start Date Job End Date [employer] [facility] [employer] Not on file Not on file Not on file Obstetrics History Para Term AB IAB SAB Ectopic Multiple Livin g Live Births 0 0 0 0 0 0 0 0 0 0 0 Last Filed Vital Signs Vital Sign Reading Time Taken Comments Blood Pressure 126/82 05/06/2024 1:56 PM ENTRY ANALYST Pulse 98 05/06/2024 1:56 PM ENTRY ANALYST Temperature 36.1 C (97 F) 05/06/2024 2:30 PM ENTRY ANALYST Respiratory Rate 18 05/06/2024 1:56 PM ENTRY ANALYST Oxygen Saturation 100% 05/06/2024 1:56 PM ENTRY ANALYST Inhaled Oxygen Concentration - - Weight 95.7 kg (211 lb) 05/06/2024 2:30 PM ENTRY ANALYST Height 162.6 cm (5' 4 ) 05/06/2024 2:30 PM ENTRY ANALYST Body Mass Index 36.22 05/06/2024 2:30 PM ENTRY ANALYST Plan of Treatment Health Maintenance Due Date [...] this topic Medical Devices Implanted Type Area Trash Collector Device Identifier Shelf Expiration Date Model / Serial / Lot [employer] Magseed 18ga 7cm Marker Breast Biopsy [id number] Right: Breast [employer] [id number] 12/10/2025 [id number] / / [id number] [facility] Tr[employer]ark Second Marker Breast Biopsy Disposable [employer] Td 2s 13-Mr - [id number] Implanted:Qty: 1 on 02/28/2024 by Consuelo Altman MD at [facility] Right: Breast [address] [employer] [id number] 06/13/2025 TRIMARK TD 2S 13-MR / / [id number] Explanted Type Area Trash Collector Device Identifier Shelf Expiration Date Model / Serial / Lot [employer] Powerport Isp Mri Airguard 8fr 1 Lumen Attachable Catheter Open Latex Free [id number] - [id number] Implanted:Qty: 1 on 08/06/2021 by Koffi Brandon MD at [facility] Explanted:Qty: 1 Right: Chest [employer] 09/09/2022 [id number] / / [id number] Procedures Procedure Name Priority Date/Time Associated Diagnosis Comments MAMM POST CLIP PLACEMENT RIGHT Schedule Routine, Read Routine (OP Routine) 02/28/2024 10:50 AM ENTRY ANALYST Abnormal MRI, breast MRI GUIDED BREAST BIOPSY RIGHT Schedule Routine, Read Routine (OP Routine) 02/28/2024 10:28 AM ENTRY ANALYST Abnormal MRI, breast SURGICAL PATHOLOGY Routine 02/28/2024 10:01 AM ENTRY ANALYST Abnormal MRI, breast PAP AND HPV, REFLEX TO HPV GENOTYPES Routine 09/18/2023 4:32 AM CDT Screening for cervical cancer Screening for human papillomavirus (HPV) HEPATITIS C ANTIBODY Routine 07/11/2022 1:00 PM CDT from Last 3 Months or Most Recently Relevant to Health Maintenance Results * Mammo Post Clip Placement Right (02/28/2024 10:50 AM ENTRY ANALYST) Anatomical Region Laterality Modality Breast Right Mammography 02/28/2024 11:3 1 AM ENTRY ANALYST Addenda Addendum by Consuelo Altman MD on 02/29/2024 4:10 PM ENTRY ANALYST Pathology report for MRI guided core needle [...] patient by the nursing staff of the [facility]. Electronically signed by: Consuelo Altman M.D. Impressions 02/28/2024 11:31 AM ENTRY ANALYST Successful MRI guided biopsy of enhancement in the lumpectomy site of the right breast. Pathology report is pending. ASSESSMENT: Post-procedure mammogram for marker placement. Electronically signed by: Consuelo Altman M.D. Narrative 02/28/2024 11:31 AM ENTRY ANALYST MRI GUIDED CORE NEEDLE BIOPSY RIGHT BREAST, [...] made with a #11 blade. A 9-gauge [facility] vacuum-assisted biopsy needle was advanced to [...] tolerated the procedure well, and left the [facility] in good condition, without evidence of immediate complication. us Nathan Fish MD IMG MAMMO PROCEDURES Edite d Result - Final * MRI Guided Breast Biopsy Right (02/28/2024 10:28 AM ENTRY ANALYST) Anatomical Region Laterality Modality Breast Right Magnetic Resonan ce 02/28/2024 11:3 1 AM ENTRY ANALYST Addenda Addendum by Consuelo Altman MD on 02/29/2024 4:10 PM ENTRY ANALYST Pathology report for MRI guided core needle [...] patient by the nursing staff of the [facility]. Electronically signed by: Consuelo Altman M.D. Impressions 02/28/2024 11:31 AM ENTRY ANALYST Successful MRI guided biopsy of enhancement in the lumpectomy site of the right breast. Pathology report is pending. ASSESSMENT: Post-procedure mammogram for marker placement. Electronically signed by: Consuelo Altman M.D. Narrative 02/28/2024 11:31 AM ENTRY ANALYST MRI GUIDED CORE NEEDLE BIOPSY RIGHT BREAST, [...] made with a #11 blade. A 9-gauge [facility] vacuum-assisted biopsy needle was advanced to [...] tolerated the procedure well, and left the [facility] in good condition, without evidence of immediate complication. us Nathan Fish MD IMG MRI PROCEDURES Edited Result - Final * Surgical pathology (02/28/2024 10:01 AM ENTRY ANALYST) Tissue (Breast biopsy, needle core) 02/28/2024 10:01 AM ENTRY ANALYST Narrative PATHOLOGY [facility] - 02/29/2024 12:16 PM ENTRY ANALYST [address] [address] Tele: Jocelin Browne MD - Reserves Clerk Note to Patients: This report may contain [...] PATHOLOGY REPORT Patient Name: LATRICE TATE Address: [address] [place] [address] Gender: F : 1990 (Age: 34) Service: Location: , Hospital #: [id number] [place] [facility] [place] Taken: 02/28/2024 Received [...] is entirely submitted in cassettes labeled A1-A3. [facility]: Microscopic examination supports the above captioned diagnosis. There is no atypical hyperplasia or malignancy. Clerical Data Follows A; [id number] REPORT IMAGES AND/OR SCANNED DOCUMENTS ONLY VIEWABLE IN PDF FORMAT The immunohistochemical test(s) cited in this report, if any, was developed and its performance characteristics determined by [facility] Pathology Department. It has not been cleared or approved by the U.S. Food and Drug Administration. The FDA has determined that such clearance or approval is not necessary. This test is used for clinical purposes. It should not be regarded as investigational or for research. [facility] Laboratory is certified under the Clinical Laboratory [...] part or completely in the following laboratories: [facility], [address], [place] [address] [facility], [address] [facility], [place] [address]. Nathan Fish MD LAB PATHOLOGY ORDERABLES F inal Result PATHOLOGY [facility] Laboratory Receiving [address] [place], [place] [id number] * (ABNORMAL) Pap and HPV, reflex to [...] 09/20/2023 2:11 PM CDT Performed at: - [address] [id number] Cement Despatch Operator: Yumiko Hubbard MD, Phone: [phone] Performed at: - [address] [id number] Cement Despatch Operator: Yumiko Hubbard MD, Phone: [phone] Specimen Comment: Source.............Cervix;Endocervix Specimen Comment: No. of containers..01 ThinPrep Vial Shara Monreal MD LAB CYTOLOGY ORDERABLES F inal Result Performing Organization Address [facility]/ZIP Co de Phone Number [facility] 02 * Hepatitis C antibody (07/11/2022 1:00 PM CDT) Hep C Ab Nonreactive Nonreactive [facility] Comment: Interpretive Data Nonreactive: Antibodies [...] GENERA L ORDERABLES Edited Result - Final [facility] [address] [place] [address] from Last 3 Months or Most Recently Relevant to Health Maintenance [facility] [id number] [place], [place] [address] Care Teams Security Systems Administrator Relationship Specialty Start Date End Date Petey York MD [address] [place], [place] [id number] PCP - General Family Medicine 03/01/22 Teofilo Triplett MD [address] [place] [address] Medical Oncologist/Slot Key Person Hematology and Oncology 07/22/21 Arian Eaton MD [address] DEPT [place] [address] Consulting Physician Radiation Oncology 07/22/21 Nathan Fish MD [address] [place] [address] Consulting Physician Surgical Oncology 07/28/21 Shara Monreal MD [address] [place], [place] [address] Consulting Physician Obstetrics and Gynecology 07/28/21 Malorie Malcolm, LANEY [address] [place] [address] Nurse Practitioner Surgery 12/22/21
--- OUTSIDE RECORDS SUMMARY | 2024-05-27 20:04 | XMS_ITS | Encounter Summary ---
Author Organization [facility] Address [address] [place] [address] Care Team Providers Care Cabinet Installer Name Role Phone Ryan Metz MD Primary Care Provider [phone] Bhavna Ventura PA-C Primary Care Provider [phone] Petey York MD Primary Care Provider [phone] Catalino Koch MD Unavailable Bhavna Ventura PA-C Primary Care Provider [phone] Encounter Details Date Type Department Care Team (Latest Contact Info) Description 01/16/2018 Abstract [facility] , Franco Santos MD Social [...] documented as of this encounter Care Teams Cabinet Installer Relationship Specialty Start Date End Date Ryan Metz MD [address] [place] [address] PCP - General INTERNAL MEDICINE 10/27/18 12/23/21 Bhavna Ventura PA-C [address] [place] [address] [address] [place] [address] PCP - General PHYSICIAN DIRECTOR OF MATERIALS 12/24/21 01/16/23 Petey York MD [address] [place] [address] PCP - General FAMILY PRACTICE 01/17/23 05/26/24 Bhavna Ventura PA-C [address] [place] [address] [address] [place] [address] PCP - General PHYSICIAN DIRECTOR OF MATERIALS 05/27/24 Catalino Koch MD [address] [facility] [address] [facility] [address] [place] [address] GENERAL SURGERY 05/27/24 documented as of this encounter
--- OUTSIDE RECORDS SUMMARY | 2024-05-27 20:04 | XMS_ITS | Encounter Summary ---
Author Organization [facility] Address [address] [place] [address] Care Team Providers Care Mine Inspector Federal Name Role Phone Ryan Metz MD Primary Care Provider [phone] Encounter Details Date Type Department Care Team (Late st Contact Info) Description 12/14/2023 Lab Requisition [facility] [address] [facility], [place] [phone] Fina Cueto MD [address] [facility] [address] [place] [address] Social History Tobacco Use Types [...] AM CDT) Case Report Dermatopathology Report Case: [id number] Authorizing Provider: Fina Cueto MD Collected: 12/14/2023 12:00 AM Ordering Location: [facility] - Received: 12/18/2023 08:49 [...] The specimen is serially sectioned and a assisted sales representative section is submitted in cassette [...] determined by the Dermatopathology Laboratory at [facility], directed by Dr. Tigre Fenton. These tests need not be, and therefore are not, approved by the [place] Food and Drug Administration. The tests are used for clinical purposes. Billing Codes Specimen Charges Stain Charges 36920 1 48598 72426 54041 67421 59358 08566 1 1 1 1 1 1 4 3:57 PM CDT DERMATOPATHOLOGY LABORATORY Embedded Images 4 3:57 PM CDT DERMATOPATHOLOGY LABORATORY Pathology/Cytolog y TISSUE SPECIMEN FROM SKIN / Unknown 12/14/2023 12/18/2023 8:49 AM CDT Fina Cueto MD LAB - PATHOLOGY/CYTO LOGY ORDERABLES DERMATOPATHOLOGY LABORATORY [facility] - Department of Dermatology [address], [address] [phone] documented in this encounter Visit Diagnoses Not on filedocumented in this encounter Care Teams Mine Inspector Federal Relationship Specialty Start Date End Date Ryan Metz MD [address] [place] [address] [place] [address] PCP - General 05/15/17 documented as of this encounter
--- OUTSIDE RECORDS SUMMARY | 2024-05-27 20:04 | XMS_ITS | Encounter Summary ---
Author Organization [facility] Address [facility] [place] [address] Care Team Providers Care Fpga Engineer Name Role Phone Catalino Koch MD Unavailable Bhavna Ventura PA-C Primary Care Provider [phone]- [phone] Reason for Visit * Reason Comments Abdominal Pain Encounter Details Date Type Department Care Team (Late Contact [facility]) Description 05/27/2024 1:49 PM CDT - 05/27/2024 7:23 PM CDT Emergency [facility] Emergency Room [id number] [place] [address] Tamela Barreto MD [address] [place] [address] [id number] Abdominal Pain Discharge Disposition: Transfer to Acute Care Hospital Social History Tobacco Use Types Packs/Day Years [...] Sign Reading Time Taken Comments Blood Pressure 116/79 05/27/2024 7:00 PM CDT Pulse 113 05/27/2024 6:53 PM CDT Temperature 36.6 C (97.8 F) 05/27/2024 6:53 PM CDT Respiratory Rate 18 05/27/2024 6:53 PM CDT Oxygen Saturation 98% 05/27/2024 7:00 PM CDT Inhaled Oxygen Concentration - - Weight 95.3 kg (210 lb) 05/27/2024 1:55 PM CDT Height 162.6 cm (5' 4 ) 05/27/2024 1:55 PM CDT Body Mass Index 36.05 05/27/2024 1:55 PM CDT documented in this encounter Medications at Time of Discharge cetirizine (ZYRTEC) 10 MG tablet Take 0.5 tablets (5 mg total) by mouth daily. levothyroxine (SYNTHROID) 75 MCG tablet TAKE 1 TABLET(75 MCG) BY MOUTH CLEAT BLANKER BEFORE BREAKFAST 01/26/2023 montelukast (SINGULAIR) 10 MG tablet Take 1 tablet (10 mg total) by mouth nightly at bedtime. NEXLETOL 180 MG Tab Take 180 mg by mouth daily. 06/25/2023 ALPRAZolam (XANAX) 0.25 MG tablet Take 1 tablet (0.25 mg total) by mouth daily as needed. 05/13/2022 EPIPEN 2-ADDISON 0.3 MG/0.3ML injection Inject 0.3 mLs (0.3 mg total) into the muscle as needed for Anaphylaxis. traMADol (ULTRAM) 50 MG tablet Take 1 tablet (50 mg total) by mouth every 6 (six) hours as needed. 05/13/2022 VYFEMLA 0.4-35 MG-MCG tablet Take 1 tablet by mouth daily. 06/10/2022 documented as of this encounter ED Notes * Lizet Steele RN - 05/27/2024 6:37 PM CDT [facility] contacted. Eta 30min * Nora Gonzalez RN - 05/27/2024 4:48 PM CDT Call placed to Impregnating Tank Operator at [place] took patient information and will have CDL TEAM TRUCK DRIVER return call * Elaine Perea RN - 05/27/2024 1:52 [...] documented in this encounter Plan of Treatment Not on file documented as of this encounter Procedures Procedure Name Priority Date/Time Associated Diagnosis Comments TEST URINE STAT 05/27/2024 3:30 PM CDT URINALYSIS, AUTO, COMPLETE STAT 05/27/2024 3:30 PM CDT PARTIAL THROMBOPLASTIN TIME,PTT STAT 05/27/2024 2:38 PM CDT PROTHROMBIN TIME, VENOUS STAT 05/27/2024 2:38 PM CDT COMPREHENSIVE METABOLIC PANEL STAT 05/27/2024 2:38 PM CDT CBC W/DIFF AUTOMATED STAT 05/27/2024 2:38 PM CDT LIPASE STAT 05/27/2024 2:38 PM CDT documented in this encounter Results * TEST URINE (05/27/2024 3:30 PM CDT) URINE HCG TEST NEGATIVE NEGATIVE 05/27/2024 3:[address] [facility] Comment: VERY DILUTE URINE SPECIMENS MAY NOT CONTAIN TOOL SALVAGE WORKER LEVELS OF HCG. IF IS STILL SUSPECTED, A SERUM HCG TEST IS RECOMMENDED. URINE SPECIMEN FROM URETHRA / Unknown 05/27/2024 3:30 PM CDT us Tamela Barreto MD URINE ORDERABLES Final Result [facility] [address] [place] [address], * URINALYSIS, AUTO, COMPLETE (05/27/2024 3:30 PM CDT) COLOR (U) YELLOW 05/27/2024 3:[address] [facility] TRANSPARENCY CLEAR 05/27/2024 3:[address] [facility] SPECIFIC GRAVITY (U) 1.015 1.000 - 1.030 05/27/2024 3:[address] [facility] U PH 7.0 5.0 - 9.0 05/27/2024 3:[address] [facility] LEUKOCYTES (U) NEGATIVE NEGATIVE 05/27/2024 3:[address] [facility] NITRITES NEGATIVE NEGATIVE 05/27/2024 3:[address] [facility] PROTEIN RANDOM (U) NEGATIVE NEGATIVE 05/27/2024 3:[address] [facility] GLUCOSE (U) NEGATIVE NEGATIVE 05/27/2024 3:[address] [facility] KETONES MG/DL (U) NEGATIVE NEGATIVE 05/27/2024 3:[address] [facility] BILIRUBIN (U) NEGATIVE NEGATIVE 05/27/2024 3:[address] [facility] BLOOD (U) NEGATIVE NEGATIVE 05/27/2024 3:[address] [facility] WBC/HPF NONE SEEN 0 - 5 /HPF 05/27/2024 3:[address] [facility] RBC/HPF NONE SEEN 0 - 5 /HPF 05/27/2024 3:[address] [facility] EPI/HPF FEW /HPF 05/27/2024 3:[address] [facility] URINE ARDON FEW 05/27/2024 3:[address] [facility] Comment:MUCOUS URINE SPECIMEN OBTAINED BY CLEAN CATCH PROCEDURE / Unknown 05/27/2024 3:30 PM CDT us Tamela Barreto MD URINE ORDERABLES Final Result Performing Organization Address [facility]/ZIP Co de Phone Number [facility] [address] [place] [address], [place] [phone] * LIPASE (05/27/2024 2:38 PM CDT) LIPASE 29 16 - 77 UNITS/L 05/27/2024 2:[address] [facility] 05/27/2024 2:38 PM CDT us Tamela Barreto MD LABORATORY Final Result Performing Organization Address City/[facility]/ZIP Co de Phone Number [facility] [address] [place] [address], [place] [phone] * (ABNORMAL) COMPREHENSIVE METABOLIC PANEL (05/27/2024 2:38 PM CDT) GLUCOSE 106(H) 70 - 99 MG/DL 05/27/2024 2:[address] [facility] BUN 12 7 - 18 MG/DL 05/27/2024 2:[address] [facility] CREATININE S/P/B 0.63 0.55 - 1.02 MG/DL 05/27/2024 2:[address] [facility] SODIUM S/P/B 139 136 - 145 MMOL/L 05/27/2024 2:[address] [facility] POTASSIUM S/P/B 3.7 3.5 - 5.1 MMOL/L 05/27/2024 2:[address] [facility] CHLORIDE S/P/B 104 100 - 108 MMOL/L 05/27/2024 2:[address] [facility] CO2 21.7 21 - 32 MMOL/L 05/27/2024 2:[address] [facility] CALCIUM S/P/B 9.6 8.5 - 10.1 MG/DL 05/27/2024 2:[address] [facility] BILIRUBIN TOTAL S/P/B 0.8 0.2 - 1.2 MG/DL 05/27/2024 2:[address] [facility] TOTAL PROTEIN S/P/B 7.4 6.4 - 8.2 G/DL 05/27/2024 2:[address] [facility] ALBUMIN S/P/B 3.8 3.4 - 5.0 G/DL 05/27/2024 2:[address] [facility] AST 48(H) 15 - 37 U/L 05/27/2024 2:[address] [facility] ALT 62(H) 14 - 55 U/L 05/27/2024 2:[address] [facility] ALKALINE PHOSPHATASE S/P/B 125 50 - 136 U/L 05/27/2024 2:[address] [facility] ANION GAP 13.3 5 - 15 MMOL/L 05/27/2024 2:[address] [facility] BUN CREATININE RATIO 19.0 6 - 26 05/27/2024 2:[address] [facility] A/G RATIO 1.1 1.0 - 2.0 RATIO 05/27/2024 2:[address] [facility] GFR ESTIMATE >90 >90 ML/MIN/1.7 3 M2 05/27/2024 2:[address] [facility] Comment: NOTE: eGFR is not [...] MD LABORATORY Final Result Performing Organization Address City/[facility]/ZIP Co de Phone Number [facility] [address] [place] [address], [place] [phone] * PARTIAL THROMBOPLASTIN TIME,PTT (05/27/2024 2:38 PM CDT) PTT 35.5 27.0 - 36.8 SEC 05/27/2024 2:[address] [facility] 05/27/2024 2:38 PM CDT us Tamela Barreto MD LABORATORY Final Result [facility] [address] [place] [address], [place] [phone] * (ABNORMAL) PROTIME/INR, VENOUS (05/27/2024 2:38 PM CDT) PROTIME 13.2(H) 9.1 - 12.4 SEC 05/27/2024 2:[address] [facility] INR 1.1 05/27/2024 2:[address] [facility] Comment: Recommend INR ranges for Oral Anticoagulant Therapy: Mechanical Cardiac Values 2.5-3.5 All others indication 2.0-3.0 05/27/2024 2:38 PM CDT Tamela Barreto MD LABORATORY Final Result [facility] [address] [place] [id number], [place] [phone] * (ABNORMAL) CBC W/DIFF AUTOMATED (05/27/2024 2:38 PM CDT) WBC 8.63 4.4 - 11.0 x10'3/uL 05/27/2024 2:[address] [facility] RBC 4.30(L) 4.50 - 5.10 x10'6/uL 05/27/2024 2:[address] [facility] HGB 12.8 12.3 - 15.3 G/DL 05/27/2024 2:[address] [facility] HCT 38.4 35.9 - 44.6 % 05/27/2024 2:[address] [facility] MCV 89.3 80.0 - 96.0 FL 05/27/2024 2:[address] [facility] MCH 29.8 25.3 - 30.9 PG 05/27/2024 2:[address] [facility] MCHC 33.3 31.0 - 34.1 G/DL 05/27/2024 2:[address] [facility] RDW 12.5 12.4 - 15.1 % 05/27/2024 2:[address] [facility] PLT 361(H) 151 - 353 x10'3/uL 05/27/2024 2:[address] [facility] MPV 9.3(L) 9.6 - 12.0 FL 05/27/2024 2:[address] [facility] RBC MORPHOLOGY NORMAL 05/27/2024 2:[address] [facility] PLT MORPH. NORMAL 05/27/2024 2:[address] [facility] WBC MORPHOLOGY NORMAL 05/27/2024 2:[address] [facility] LYMPHOCYTES % 19.5 15.8 - 45.0 % 05/27/2024 2:[address] [facility] NEUTROPHILS % 66.3 42.1 - 71.9 % 05/27/2024 2:[address] [facility] MONOCYTES % 7.4 5.7 - 12.5 % 05/27/2024 2:[address] [facility] EOSINOPHILS 5.8(H) 0.0 - 5.6 % 05/27/2024 2:[address] [facility] BASOPHILS 0.7 0.0 - 1.3 % 05/27/2024 2:[address] [facility] ABS. NEUTROPHILS 5.72 1.40 - 6.00 x10'3/uL 05/27/2024 2:[address] [facility] IMMATURE GRANS % 0.3 0.0 - 0.5 % 05/27/2024 2:[address] [facility] ABS. LYMPHOCYTES 1.68 0.80 - 4.70 x10'3/uL 05/27/2024 2:[address] [facility] 05/27/2024 2:38 PM CDT us Tamela Barreto MD LABORATORY Final Result [facility] [address] [place] [address], [place] [phone] documented in this encounter Visit Diagnoses Diagnosis Postoperative abdominal pain- Primary Abdominal pain, unspecified site Intractable abdominal pain Abdominal pain, unspecified site documented in this encounter Administered Medications Inactive Administered Medications - up to 3 most recent administrations Medication Order MAR Action Action Date Dose Rate Site HYDROmorphone (DILAUDID) injection 0.5 mg 0.5 mg, Intravenous, Once, 1 dose, On Mon05/27/24 at 1700, Administer slowly over at least 2-3 minutes. Given 05/27/2024 4:58 PM CDT 0.5 mg HYDROmorphone (DILAUDID) injection 1 mg 1 mg, [...] Order 05/25/2024 05/26/2024 05/27/2024 HYDROmorphone (DILAUDID) injection 0.5 mg (COMPLETED) 0.5 mg, Intravenous, Once, 1 dose, On Mon05/27/24 at 1700, Administer slowly over at least 2-3 minutes. 1658 (Given - Provid er: Elaine Perea RN) HYDROmorphone (DILAUDID) injection 1 mg (COMPLETED) 1 [...] (New Bag - Prov ider: Elaine Perea RN)1702 (Infusion Stop Time - Provider: Elaine Perea RN) documented in this encounter Care Teams Fpga Engineer Relationship Specialty Start Date End Date Bhavna Ventura PA-C [address] [place] [address] PCP - General PHYSICIAN GEOLOGICAL ENGINEERING TEACHER 05/27/24 Catalino Koch MD [address] [place] [address] GENERAL SURGERY 05/27/24 documented as of this encounter
--- OUTSIDE RECORDS SUMMARY | 2024-05-27 20:04 | XMS_ITS | Encounter Summary ---
Author Organization [facility] Address [facility] [place] [address] Care Team Providers Care Retail Store Associate Name Role Phone Catalino Koch MD Unavailable Bhavna Ventura PA-C Primary Care Provider [phone]- [phone] Encounter Details Date Type Department Care Team [...] on filedocumented in this encounter Care Teams Retail Store Associate Relationship Specialty Start Date End Date Bhavna Ventura PA-C [address] [place] [address] [address] [place] [address] PCP - General PHYSICIAN GROUNDWATER CONSULTANT 05/27/24 Catalino Koch MD [address] [place] [address] [address] [place] [address] GENERAL SURGERY 05/27/24 documented as of this encounter
--- OUTSIDE RECORDS SUMMARY | 2024-05-27 20:04 | XMS_ITS | Encounter Summary ---
Author Organization [facility] Address [address] [facility] [place] [address] Care Team Providers Care Steamboat Captain Name Role Phone Ryan Metz MD Primary Care Provider [phone] Encounter Details Date Type Department Care Team (Late st Contact Info) Description 12/28/2023 Lab Requisition [facility] - Pathology Lab [address] [place] [address] Enrrique Gandara MD [address] [facility] [address] [place] [address] Illness, unspecified Social History Tobacco Use [...] unspecified documented in this encounter Care Teams Steamboat Captain Relationship Specialty Start Date End Date Ryan Metz MD [address] [place] [address] PCP - General 05/15/17 documented as of this encounter
--- OUTSIDE RECORDS SUMMARY | 2024-05-27 20:04 | XMS_ITS | Clinical Summary ---
Author Organization [facility] Address [address] [place] [address] Care Team Providers Care Supervisor Beater Room Name Role Phone Catalino Koch MD Unavailable Bhavna Ventura PA-C Primary Care Provider [phone]- [phone] Allergies Active Allergy Reactions Criticality Noted Date [...] tablet TAKE 1 TABLET(75 MCG) BY MOUTH OCEAN EXPORT COORDINATOR BEFORE BREAKFAST 3 Active montelukast (SINGULAIR) 10 [...] 08/16/2022 Assessment & Plan (04/25/2023 10:27 AM JOGGLE PRESS OPERATOR): Recommendation at this time is to continue with her home exercise program for the ankle. Patient will be seen back as needed. Assessment & Plan (01/31/2023 6:49 PM JOGGLE PRESS OPERATOR): We got her set up to [...] Team Description 05/27/2024 1:49 PM CDT - 05/27/2024 7:23 PM CDT Emergency [facility] Emergency Room [address] [place] [address] Tamela Barreto MD Abdominal Pain Discharge Disposition: Transfer to Acute Care Hospital 05/27/2024 Travel from Last 3 Months Immunizations [...] (#1) 2023 01/05/2012, 01/22/2004, 01/06/2003 PHQ-2 (Physician [place]) 03/13/2024 10/11/2023 Cervical Cancer Screening Pap Smear [...] patient's age to complete this topic Procedures Procedure Name Priority Date/Time Associated Diagnosis Comments TEST URINE STAT 05/27/2024 3:30 PM CDT URINALYSIS, AUTO, COMPLETE STAT 05/27/2024 3:30 PM CDT LIPASE STAT 05/27/2024 2:38 PM CDT COMPREHENSIVE METABOLIC PANEL STAT 05/27/2024 2:38 PM CDT PARTIAL THROMBOPLASTIN TIME,PTT STAT 05/27/2024 2:38 PM CDT PROTHROMBIN TIME, VENOUS STAT 05/27/2024 2:38 PM CDT CBC W/DIFF AUTOMATED STAT 05/27/2024 2:38 PM CDT from Last 3 Months Results * TEST URINE (05/27/2024 3:30 PM CDT) URINE HCG TEST NEGATIVE NEGATIVE 05/27/2024 3:42 PM CDT [facility] Comment: VERY DILUTE URINE SPECIMENS MAY NOT CONTAIN DIRECTOR OF CORPORATE RESPONSIBILITY LEVELS OF HCG. IF IS STILL SUSPECTED, A SERUM HCG TEST IS RECOMMENDED. URINE SPECIMEN FROM URETHRA / Unknown 05/27/2024 3:30 PM CDT us Tamela Barreto MD URINE ORDERABLES Final Result Performing Organization Address City/State/[facility] Co de Phone Number [facility] [address] [place] [address], [place] [phone] * URINALYSIS, AUTO, COMPLETE (05/27/2024 3:30 PM CDT) COLOR (U) YELLOW 05/27/2024 3:45 PM CDT [facility] TRANSPARENCY CLEAR 05/27/2024 3:45 PM CDT [facility] SPECIFIC GRAVITY (U) 1.015 1.000 - 1.030 05/27/2024 3:45 PM CDT [facility] U PH 7.0 5.0 - 9.0 05/27/2024 3:45 PM CDT [facility] LEUKOCYTES (U) NEGATIVE NEGATIVE 05/27/2024 3:45 PM CDT [facility] NITRITES NEGATIVE NEGATIVE 05/27/2024 3:45 PM CDT [facility] PROTEIN RANDOM (U) NEGATIVE NEGATIVE 05/27/2024 3:45 PM CDT [facility] GLUCOSE (U) NEGATIVE NEGATIVE 05/27/2024 3:45 PM CDT [facility] KETONES MG/DL (U) NEGATIVE NEGATIVE 05/27/2024 3:45 PM CDT [facility] BILIRUBIN (U) NEGATIVE NEGATIVE 05/27/2024 3:45 PM CDT [facility] BLOOD (U) NEGATIVE NEGATIVE 05/27/2024 3:45 PM CDT [facility] WBC/HPF NONE SEEN 0 - 5 /HPF 05/27/2024 3:45 PM CDT [facility] RBC/HPF NONE SEEN 0 - 5 /HPF 05/27/2024 3:45 PM CDT [facility] EPI/HPF FEW /HPF 05/27/2024 3:45 PM CDT [facility] URINE ARDON FEW 05/27/2024 3:45 PM CDT [facility] Comment:MUCOUS URINE SPECIMEN OBTAINED BY CLEAN CATCH PROCEDURE / Unknown 05/27/2024 3:30 PM CDT us Tamela Barreto MD URINE ORDERABLES Final Result [facility] [address] [place] [address], [place] [phone] * PARTIAL THROMBOPLASTIN TIME,PTT (05/27/2024 2:38 PM CDT) PTT 35.5 27.0 - 36.8 SEC 05/27/2024 2:51 PM CDT [facility] 05/27/2024 2:38 PM CDT us Tamela Barreto MD LABORATORY Final Result Performing Organization Address [facility]/ZIP Co de Phone Number [facility] [address] [place] [address], [place] [phone] * (ABNORMAL) PROTIME/INR, VENOUS (05/27/2024 2:38 PM CDT) [facility] PROTIME 13.2(H) 9.1 - 12.4 SEC 05/27/2024 2:51 PM CDT [facility] INR 1.1 05/27/2024 2:51 PM CDT [facility] Comment: Recommend INR ranges for Oral Anticoagulant Therapy: Mechanical Cardiac Values 2.5-3.5 All others indication 2.0-3.0 05/27/2024 2:38 PM CDT us Tamela Barreto MD LABORATORY Final Result Performing Organization Address [facility] Co de Phone Number [facility] [address] [place] [address], [place] [phone] * (ABNORMAL) COMPREHENSIVE METABOLIC PANEL (05/27/2024 2:38 PM CDT) Pathologist [facility] GLUCOSE 106(H) 70 - 99 MG/DL 05/27/2024 2:57 PM CDT [facility] BUN 12 7 - 18 MG/DL 05/27/2024 2:57 PM CDT [facility] CREATININE S/P/B 0.63 0.55 - 1.02 MG/DL 05/27/2024 2:57 PM CDT [facility] SODIUM S/P/B 139 136 - 145 MMOL/L 05/27/2024 2:57 PM T [facility] POTASSIUM S/P/B 3.7 3.5 - 5.1 MMOL/L 05/27/2024 2:57 PM CDT [facility] CHLORIDE S/P/B 104 100 - 108 MMOL/L 05/27/2024 2:57 PM T [facility] CO2 21.7 21 - 32 MMOL/L 05/27/2024 2:57 PM T [facility] CALCIUM S/P/B 9.6 8.5 - 10.1 MG/DL 05/27/2024 2:57 PM T [facility] BILIRUBIN TOTAL S/P/B 0.8 0.2 - 1.2 MG/DL 05/27/2024 2:57 PM T [facility] TOTAL PROTEIN S/P/B 7.4 6.4 - 8.2 G/DL 05/27/2024 2:57 PM T [facility] ALBUMIN S/P/B 3.8 3.4 - 5.0 G/DL 05/27/2024 2:57 PM T [facility] AST 48(H) 15 - 37 U/L 05/27/2024 2:57 PM T [facility] ALT 62(H) 14 - 55 U/L 05/27/2024 2:57 PM T [facility] ALKALINE PHOSPHATASE S/P/B 125 50 - 136 U/L 05/27/2024 2:57 PM T [facility] ANION GAP 13.3 5 - 15 MMOL/L 05/27/2024 2:57 PM T [facility] BUN CREATININE RATIO 19.0 6 - 26 05/27/2024 2:57 PM CDT [facility] A/G RATIO 1.1 1.0 - 2.0 RATIO 05/27/2024 2:57 PM CDT [facility] GFR ESTIMATE >90 >90 ML/MIN/1.7 3 M2 05/27/2024 2:57 PM CDT [facility] Comment: NOTE: eGFR is not calculated for patients <18 years of age. This is an estimated GFR calculation using the new CKD EPI creatinine equation without race and so does not require a correction factor for race. This estimated GFR should not be used for calculating drug doses. 05/27/2024 2:38 PM CDT us Tamela Barreto MD LABORATORY Final Result [facility] [address] [place] [address], * (ABNORMAL) CBC W/DIFF AUTOMATED (05/27/2024 2:38 PM CDT) WBC 8.63 4.4 - 11.0 x10'3/uL 05/27/2024 2:43 PM CDT [facility] RBC 4.30(L) 4.50 - 5.10 x10'6/uL 05/27/2024 2:43 PM CDT [facility] HGB 12.8 12.3 - 15.3 G/DL 05/27/2024 2:43 PM CDT [facility] HCT 38.4 35.9 - 44.6 % 05/27/2024 2:43 PM CDT [facility] MCV 89.3 80.0 - 96.0 FL 05/27/2024 2:43 PM CDT [facility] MCH 29.8 25.3 - 30.9 PG 05/27/2024 2:43 PM CDT [facility] MCHC 33.3 31.0 - 34.1 G/DL 05/27/2024 2:43 PM CDT [facility] RDW 12.5 12.4 - 15.1 % 05/27/2024 2:43 PM CDT [facility] PLT 361(H) 151 - 353 x10'3/uL 05/27/2024 2:43 PM CDT [facility] MPV 9.3(L) 9.6 - 12.0 FL 05/27/2024 2:43 PM CDT [facility] RBC MORPHOLOGY NORMAL 05/27/2024 2:43 PM CDT [facility] PLT MORPH. NORMAL 05/27/2024 2:43 PM CDT [facility] WBC MORPHOLOGY NORMAL 05/27/2024 2:43 PM CDT [facility] LYMPHOCYTES % 19.5 15.8 - 45.0 % 05/27/2024 2:43 PM CDT [facility] NEUTROPHILS % 66.3 42.1 - 71.9 % 05/27/2024 2:43 PM CDT [facility] MONOCYTES % 7.4 5.7 - 12.5 % 05/27/2024 2:43 PM CDT [facility] EOSINOPHILS 5.8(H) 0.0 - 5.6 % 05/27/2024 2:43 PM CDT [facility] BASOPHILS 0.7 0.0 - 1.3 % 05/27/2024 2:43 PM CDT [facility] ABS. NEUTROPHILS 5.72 1.40 - 6.00 x10'3/uL 05/27/2024 2:43 PM CDT [facility] IMMATURE GRANS % 0.3 0.0 - 0.5 % 05/27/2024 2:43 PM CDT [facility] ABS. LYMPHOCYTES 1.68 0.80 - 4.70 x10'3/uL 05/27/2024 2:43 PM CDT [facility] 05/27/2024 2:38 PM CDT us Tamela Barreto MD LABORATORY Final Result Performing Organization Address City/[facility]/ZIP Co de Phone Number [facility] [address] [place] [address], [place] [phone] * LIPASE (05/27/2024 2:38 PM CDT) LIPASE 29 16 - 77 UNITS/L 05/27/2024 2:57 PM CDT [facility] 05/27/2024 2:38 PM CDT us Tamela Barreto MD LABORATORY Final Result Performing Organization Address [facility] Co de Phone Number [facility] [address] [place] [address], [place] [phone] from Last 3 Months Insurance AET Care Teams Supervisor Beater Room Relationship Specialty Start Date End Date Bhavna Ventura PA-C [address] [place], [place] [id number] [place] [address] PCP - General PHYSICIAN CATERPILLAR MECHANIC 05/27/24 Catalino Koch MD [id number] [facility] [address] [address] GENERAL SURGERY 05/27/24
--- OUTSIDE RECORDS SUMMARY | 2024-05-27 20:04 | XMS_ITS ---
Author Organization [facility] Address [address] [place] [id number] Care Team Providers Care Surfacing Technician Name Role Phone Uziel Teofilo Jones MD Unavailable [phone] Arian Eaton MD Unavailable [phone] Nathan Fish MD Unavailable [phone] Shara Monreal MD Unavailable [phone] Malorie Malcolm NP Unavailable Petey York MD Primary Care Provider [phone] Active Problems Problem Noted Date Diagnosed Date Breast pain, right 06/27/2022 Invasive ductal carcinoma of breast, female, rig ht 07/30/2021 Encounter for fitting and adjustment of vascular catheter 07/30/2021 Overview (07/30/2021): Added automatically from request for surgery [id number] Malignant neoplasm 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, estrogen receptor negative 07/23/2021 Cancer Staging:Clinical stage from 07/20/2021:Stage IB(cT1c, cN0, cM0, G3, ER-, MT-, HER2-) - Signed by Arian Eaton MD on 07/30/2021 Pathologic stage from 02/10/2022:No Stage Recommended(ypT0, pN0(sn), cM0, GX, ER- , MT-, HER2-) - Signed by Arian Eaton MD on 03/09/2022 Endometriosis 10/22/2019 Overview (10/22/2019): Added automatically from request for surgery [id number] Pelvic and perineal pain 10/22/2019 Overview (10/22/2019): Added automatically from request for surgery [id number] Persistent proteinuria 10/25/2018 Recurrent UTI 10/25/2018 Asymptomatic [...] from the original note were not included. [facility] [id number] This Survivorship Care Plan is a cancer [...] Information: Primary Care Physician Petey York MD [phone] Keanu Fish [phone] Arian Eaton [phone] Teofilo Triplett [phone] Plastic Surgeon Other Providers Treatment Summary Cancer [...] Stage IB (cT1c, cN0, cM0, G3, ER-, MT-, HER2-) - Signed by Arian Eaton MD on 07/30/2021 - Pathologic stage from 02/10/2022: No Stage Recommended (ypT0, pN0(sn), cM0, GX, ER-, MT-, HER2-) -Signed by Arian Eaton MD on [...] equivalent: 238.218 mg/m2 (480 mg) Research Studies [id number] in REsults of Immune Checkpoint Inhibitor Tx (DiRECT):Prospective Study of Cancer Survivors Tx'd w anti-PD-1/antiPD-L1 Immunotherapy in a Community Oncology Setting Status On study Active Start Date 08/13/21 NCT [id number] Persistent symptoms or side effects that have [...] breast cancer could run in the family: [place] heritage History of ovarian cancer in the [...] monitoring Every 3 months while on Herceptin HOGSHEAD PRESS OPERATOR: No care steamboat inspector to display Pap/pelvic exam (woman only) As [...] Help learning to eat healthier, call the swiss machinist at: [facility] . Have an active lifestyle, strive [...] Cancer.Net--http://www.cancer.net/survivorship Livestrong--http://www.livestrong.org/ Livestrong Care Plan--http://www.livestrongcareplan.org/ National Cancer Averill--http://www.cancer.gov/cancertopics/factsheet/therapy/followup National Cancer Averill Facing Forward: Life After Cancer Treatment--http://www.cancer.gov/cancertopics/coping/ghwh-pueol-hjngnowix National Coalition for Cancer Survivorship--http://www.canceradvocacy.org/ National Comprehensive Cancer Network-http://www.nccn.org/patients/resources NCCS Cancer Survival Toolbox-- http://www.canceradvocacy.org/toolbox/ CancerCare--http://www.cancercare.org/ Healthcare.gov (insurance marketplace)-- https://www.healthcare.gov/ Cancer and Careers--http://www.cancerandcareers.org/en [place] Cancer Society:The Survivorship Center--http://www.cancer.org/survivorshipcenter Cancer Support Community- http://www.cancersupportcommunity.org/ Cancer Rehabilitation--www.[facility]/rehab Resolved Problems Problem Noted Date Diagnosed Date Resolved Date Post-operative state 02/22/2022 024
--- OUTSIDE RECORDS SUMMARY | 2024-05-27 20:04 | XMS_ITS | Patient Health Summary ---
Author Organization [facility] Address [address] [place] [address] Care Team Providers Care Community Relations Specialist Name Role Phone Ryan Metz MD Primary Care Provider Note from [facility],non-owned Affiliates and Associated Physician Practices is amultiple site organization consisting of ambulatory clinics and hospital sitesin [place], [place], [place] and [place]. This disclosure is being madepursuant to the Care Everywhere program and may not contain all information available regarding this patient. Last updated 17.[facility] Allergies * Doxycycline(Nausea and/or Vomiting) Medications * [...] AM CDT) Case Report Dermatopathology Report Case: [id number] Authorizing Provider: Fina Cueto MD Collected: 12/14/2023 12:00 AM Ordering Location: [facility] - Received: 12/18/2023 08:49 AM DermPath Lab Pathologist: Desi Doan MD Specimen: Skin, under right breast 3:57 PM CDT DERMATOPATHOLOGY LABORATORY Final Diagnosis Specimen A. SKIN, under right breast: VASCULAR PROLIFERATION, SUPERFICIAL PORTIONS OF (D48.5) (see microscopic description and comment) 3:57 PM [facility] DERMATOPATHOLOGY LABORATORY Clinical History Cyst vs dermatofibroma, r/o other 3:57 PM [facility] DERMATOPATHOLOGY LABORATORY Gross Description Specimen A: Received is one formalin filled container labeled with the patient's name and designated under right breast. The specimen consists of a 3x3x4 mm piece of skin. The specimen is serially sectioned and a sales representative groceries section is submitted in cassette 1. Jar 1. 3:57 PM [facility] DERMATOPATHOLOGY LABORATORY Microscopic Description Specimen A. SKIN, [...] Dr. Dai Fenton, who agrees. 3:57 PM [facility] DERMATOPATHOLOGY LABORATORY Disclaimer An external and internal positive and negative controls are appropriate for the histochemical, immunohistochemical and immunofluorescence stain(s) in this case (if any), except where stated explicitly. The performance characteristics of the stain(s) cited in this report were developed and its performance characteristic determined by the Dermatopathology Laboratory at [facility], directed by Dr. Tigre Fenton. These tests need not be, and therefore are not, approved by the [place] Food and Drug Administration. The tests are used for clinical purposes. Billing Codes Specimen Charges Stain Charges 12187 1 00799 71285 75984 59053 63315 49255 1 1 1 1 1 1 4 3:57 PM CDT DERMATOPATHOLOGY LABORATORY Embedded Images 4 3:57 PM CDT DERMATOPATHOLOGY LABORATORY Pathology/Cytolog y TISSUE SPECIMEN FROM SKIN / Unknown 12/14/2023 12/18/2023 8:49 AM CDT Fina Cueto MD LAB - PATHOLOGY/CYTO LOGY ORDERABLES DERMATOPATHOLOGY LABORATORY [facility] - Department of Dermatology [address], [address] [phone] * US KIDNEY WITH DOPPLER (12/14/2017 9:02 AM CDT) Anatomical Region Laterality Modality Ultrasound 12/14/2017 9:17 AM CDT Impressions 12/14/2017 12:48 PM CDT IMPRESSION: 1. No ultrasonographic evidence of pyelonephritis. 2. Patent renal vasculature. Dictated by Subha Marquez MD (resident care technician). This report was approved by Subha Marquez [...] Dictated by Subha Marquez MD (resident care technician). This report was approved by Subha Marquez on 12/14/2017 10:01 AM . I, Dr. KAROL ALLRED M.D. have personally reviewed and interpretedthis examination/study. This report was electronically signed by KAROL ALLRED M.D. on 12/14/2017 12:48 PM . Roderick Cintron MD US ORDERABLES * (ABNORMAL) CBC W/O DIFFERENTIAL (12/14/2017 3:27 AM CDT) WBC 7.5 3.5 - 10.5 10 3/uL 12/14/2017 3:49 AM [facility] RBC 3.69(L) 3.90 - 5.00 10 6/uL 12/14/2017 3:49 AM [facility] Hemoglobin 10.9(L) 12.0 - 15.5 g/dL 12/14/2017 3:49 AM [facility] Hematocrit 32.0(L) 35.0 - 45.0 % 12/14/2017 3:49 AM [facility] MCV 86.7 81.0 - 97.0 fL 12/14/2017 3:49 AM [facility] MCH 29.5 28.0 - 34.0 pg 12/14/2017 3:49 AM [facility] MCHC 34.1 32.0 - 36.0 g/dL 12/14/2017 3:49 AM [facility] Platelet Count 226 150 - 400 10 3/uL 12/14/2017 3:49 AM [facility] RDW-SD 39.7 36.0 - 50.0 fL 12/14/2017 3:49 AM [facility] RDW-CV 12.4 11.2 - 14.8 % 12/14/2017 3:49 AM [facility] MPV 9.6 9.3 - 12.8 fL 12/14/2017 3:49 AM [facility] Blood BLOOD SPECIMEN / Unknown Lab Venipuncture / Unknown 12/14/2017 3:27 AM CDT 12/14/2017 3:45 AM T Roderick Cintron MD LAB - HEMATOLOGY ORD ERABLES [facility] [address] [phone] * (ABNORMAL) BASIC METABOLIC PANEL (CALCIUM TOTAL) (12/14/2017 3:27 AM CDT) BUN 14 7 - 26 mg/dL 12/14/2017 4:09 AM [facility] Creatinine 1.3(H) 0.6 - 1.2 mg/dL 12/14/2017 4:09 AM [facility] Sodium 140 136 - 145 mmol/L 12/14/2017 4:09 AM [facility] Potassium 3.8 3.5 - 4.5 mmol/L 12/14/2017 4:09 AM [facility] Chloride 110(H) 98 - 107 mmol/L 12/14/2017 4:09 AM [facility] CO2 22 22 - 29 mmol/L 12/14/2017 4:09 AM [facility] Glucose 101 70 - 115 mg/dL 12/14/2017 4:09 AM [facility] Calcium 8.7 8.4 - 10.2 mg/dL 12/14/2017 4:09 AM [facility] Anion Gap 12 8 - 18 12/14/2017 4:09 AM [facility] BUN/Creatinine Ratio 11 7 - 23 12/14/2017 4:09 AM [facility] Osmolality Calculated 291 270 - 300 mOsm/kg 12/14/2017 4:09 AM [facility] eGFR 50(L) >60 mL/min/1.7 3 m2 12/14/2017 4:09 AM [facility] Blood BLOOD SPECIMEN / Unknown Lab Venipuncture / Unknown 12/14/2017 3:27 AM CDT 12/14/2017 3:44 AM CDT Roderick Cintron MD LAB - CHEMISTRY [place] [facility] [address] [phone] * HCG URINE QUALITATIVE (12/13/2017 8:38 PM CDT) Test Urine Negative Negative 12/13/2017 8:44 PM T [facility] Urine URINE / Unknown Collection / Unknown 12/13/2017 8:38 PM CDT 12/13/2017 8:38 PM CDT Yady Esquivel DO LAB - URINALY SIS ORDERABLES Performing Organization Address City/[facility]/ZIP Co de Phone Number [address] [phone] * SODIUM URINE RANDOM (12/13/2017 8:37 PM CDT) Sodium Urine 120 Not Established mmol/L 12/13/2017 9:09 PM CDT [facility] Urine URINE SPECIMEN OBTAINED BY CLEAN CATCH PROCEDURE / Unknown Collection / Unknown 12/13/2017 8:37 PM CDT 12/13/2017 8:37 PM CDT Roderick Cintron MD LAB - URINE CHEMISTR Y ORDERABLES [address] [phone] * UREA NITROGEN URINE RANDOM (12/13/2017 8:37 PM CDT) Urea Nitrogen Random Urine 202 Not Established mg/dL 12/13/2017 9:09 PM CDT [facility] Urine URINE SPECIMEN OBTAINED BY CLEAN CATCH PROCEDURE / Unknown Collection / Unknown 12/13/2017 8:37 PM CDT 12/13/2017 8:37 PM CDT Roderick Cintron MD LAB - URINE CHEMISTR Y ORDERABLES Performing Organization Address City/[facility]/ZIP Co de Phone Number [address] [phone] * POTASSIUM URINE RANDOM (12/13/2017 8:37 PM CDT) Potassium Urine 10 Not Established mmol/L 12/13/2017 9:09 PM CDT [facility] Urine URINE SPECIMEN OBTAINED BY CLEAN CATCH PROCEDURE / Unknown Collection / Unknown 12/13/2017 8:37 PM CDT 12/13/2017 8:37 PM CDT Roderick Cintron MD LAB - URINE CHEMISTR Y ORDERABLES Performing Organization Address [facility]/ZIP Co de Phone Number [address] [phone] * OSMOLALITY URINE (12/13/2017 8:37 PM CDT) Osmolality Urine 342 50 - 1,200 mOsm/kg 12/13/2017 9:01 PM CDT [facility] Urine URINE SPECIMEN OBTAINED BY CLEAN CATCH PROCEDURE / Unknown Collection / Unknown 12/13/2017 8:37 PM CDT 12/13/2017 8:37 PM CDT Roderick Cintron MD LAB - URINE CHEMISTR Y ORDERABLES Performing Organization Address City/[facility]/ZIP Co de Phone Number [address] [phone] * CREATININE URINE RANDOM (12/13/2017 8:37 PM CDT) Creatinine Urine 40 Not Established mg/dL 12/13/2017 9:21 PM T [facility] Urine URINE SPECIMEN OBTAINED BY CLEAN CATCH PROCEDURE / Unknown Collection / Unknown 12/13/2017 8:37 PM CDT 12/13/2017 8:37 PM CDT Roderick Cintron MD LAB - URINE CHEMISTR Y ORDERABLES Performing Organization Address City/[facility]/ZIP Co de Phone Number [address] [phone] * (ABNORMAL) CBC W AUTO DIFFERENTIAL (12/13/2017 7:17 PM CDT) WBC 6.9 3.5 - 10.5 10 3/uL 12/13/2017 7:50 PM [facility] RBC 3.77(L) 3.90 - 5.00 10 6/uL 12/13/2017 7:50 PM [facility] Hemoglobin 11.1(L) 12.0 - 15.5 g/dL 12/13/2017 7:50 PM [facility] Hematocrit 33.4(L) 35.0 - 45.0 % 12/13/2017 7:50 PM [facility] MCV 88.6 81.0 - 97.0 fL 12/13/2017 7:50 PM [facility] MCH 29.4 28.0 - 34.0 pg 12/13/2017 7:50 PM [facility] MCHC 33.2 32.0 - 36.0 g/dL 12/13/2017 7:50 PM [facility] Platelet Count 223 150 - 400 10 3/uL 12/13/2017 7:50 PM [facility] RDW-SD 40.8 36.0 - 50.0 fL 12/13/2017 7:50 PM [facility] RDW-CV 12.7 11.2 - 14.8 % 12/13/2017 7:50 PM [facility] MPV 9.8 9.3 - 12.8 fL 12/13/2017 7:50 PM [facility] Neutrophils % 61.6 35.0 - 70.0 % 12/13/2017 7:50 PM [facility] Lymphocytes % 29.8 19.7 - 55.1 % 12/13/2017 7:50 PM [facility] Monocytes % 6.4 3.0 - 15.0 % 12/13/2017 7:50 PM [facility] Eosinophils % 1.9 0.0 - 6.0 % 12/13/2017 7:50 PM [facility] Basophil % 0.3 0.0 - 1.5 % 12/13/2017 7:50 PM [facility] Neutrophils Absolute 4.3 1.6 - 7.0 10 3/uL 12/13/2017 7:50 PM [facility] Lymphocyte Absolute 2.1 0.8 - 2.9 10 3/uL 12/13/2017 7:50 PM [facility] Monocytes Absolute 0.44 0.14 - 0.66 10 3/uL 12/13/2017 7:50 PM [facility] Eosinophils Absolute 0.13 0.00 - 0.22 10 3/uL 12/13/2017 7:50 PM [facility] Basophils Absolute 0.02 0.00 - 0.06 10 3/uL 12/13/2017 7:50 PM [facility] Immature Granulocytes % 0.1 0.0 - 1.0 % 12/13/2017 7:50 PM [facility] Blood BLOOD SPECIMEN / Unknown Lab Venipuncture / Unknown 12/13/2017 7:17 PM CDT 12/13/2017 7:45 PM CDT Roderick Cintron MD LAB - HEMATOLOGY ORD ERABLES [facility] [address] [phone] * (ABNORMAL) COMPREHENSIVE METABOLIC PANEL (12/13/2017 7:17 PM CDT) BUN 15 7 - 26 mg/dL 12/13/2017 8:07 PM [facility] Creatinine 1.6(H) 0.6 - 1.2 mg/dL 12/13/2017 8:07 PM [facility] Sodium 141 136 - 145 mmol/L 12/13/2017 8:07 PM [facility] Potassium 3.4(L) 3.5 - 4.5 mmol/L 12/13/2017 8:07 PM [facility] Chloride 110(H) 98 - 107 mmol/L 12/13/2017 8:07 PM [facility] CO2 20(L) 22 - 29 mmol/L 12/13/2017 8:07 PM [facility] Glucose 105 70 - 115 mg/dL 12/13/2017 8:07 PM [facility] Calcium 9.1 8.4 - 10.2 mg/dL 12/13/2017 8:07 PM [facility] Protein Total 6.4 6.0 - 8.3 g/dL 12/13/2017 8:07 PM [facility] Albumin 2.8(L) 3.4 - 5.0 g/dL 12/13/2017 8:07 PM [facility] Bilirubin Total 0.3 0.2 - 1.2 mg/dL 12/13/2017 8:07 PM [facility] Alkaline Phosphatase 47 40 - 150 Units/L 12/13/2017 8:07 PM [facility] ALT 7 0 - 55 Units/L 12/13/2017 8:07 PM [facility] AST 11 5 - 34 Units/L 12/13/2017 8:07 PM [facility] Anion Gap 14 8 - 18 12/13/2017 8:07 PM [facility] BUN/Creatinine Ratio 9 7 - 23 12/13/2017 8:07 PM CDT [facility] Osmolality Calculated 293 270 - 300 mOsm/kg 12/13/2017 8:07 PM CDT [facility] Albumin/Globulin Ratio 0.8(L) 1.1 - 2.3 12/13/2017 8:07 PM CDT [facility] eGFR 39(L) >60 mL/min/1.7 3 m2 12/13/2017 8:07 PM CDT [facility] Blood BLOOD SPECIMEN / Unknown Lab Venipuncture / Unknown 12/13/2017 7:17 PM CDT 12/13/2017 7:45 PM CDT Roderick Cintron MD LAB - CHEMISTRY [place] [facility] [address] [phone] * PHOSPHORUS BLOOD (12/13/2017 7:17 PM CDT) Phosphorus 3.5 2.3 - 4.7 mg/dL 12/13/2017 8:05 PM CDT [facility] Blood BLOOD SPECIMEN / Unknown Lab Venipuncture / Unknown 12/13/2017 7:17 PM CDT 12/13/2017 7:45 PM CDT Roderick Cintron MD LAB - CHEMISTRY [place] [facility] Performing Organization Address City/[facility]/ZIP Co de Phone Number [address] [phone] * MAGNESIUM BLOOD (12/13/2017 7:17 PM CDT) Magnesium 1.8 1.6 - 2.6 mg/dL 12/13/2017 8:07 PM CDT [facility] Blood BLOOD SPECIMEN / Unknown Lab Venipuncture / Unknown 12/13/2017 7:17 PM CDT 12/13/2017 7:45 PM CDT Roderick Cintron MD LAB - CHEMISTR[place] [address], [facility] [phone] * LACTIC ACID BLOOD (12/13/2017 7:17 PM CDT) [facility] Lactic Acid-Stat 1.5 0.5 - 2.2 mmol/L 12/13/2017 8:03 PM CDT [facility] Blood BLOOD SPECIMEN / Unknown Lab Venipuncture / Unknown 12/13/2017 7:17 PM CDT 12/13/2017 7:45 PM CDT Roderick Cintron MD LAB - CHEMISTR[place] [address], [facility] [phone] * CK BLOOD (12/13/2017 7:17 PM CDT) [facility] CK Total 52 30 - 200 Units/L 12/13/2017 8:07 PM CDT [facility] Blood BLOOD SPECIMEN / Unknown Lab Venipuncture / Unknown 12/13/2017 7:17 PM CDT 12/13/2017 7:45 PM CDT Roderick Cintron MD LAB - CHEMISTR[place] [address], [facility] [phone] * CULTURE BLOOD (12/13/2017 7:16 PM CDT) [facility] Culture No growth day 5 [place] 12/18/2017 11:31 PM CDT [facility] Blood PERIPHERAL BLOOD / Unknown Lab Venipuncture / Unknown 12/13/2017 7:16 PM CDT 12/13/2017 7:45 PM CDT Roderick Cintron MD LAB - MICROBIOLOGY O RDERABLES [facility] [address] [place] [address], [facility] [phone] * (ABNORMAL) URINALYSIS W/MICROSCOPIC NO CULTURE (12/13/2017 6:24 PM [facility]) Color UA Yellow Straw, Yellow, Colorless, Light Yellow 12/13/2017 6:33 PM [facility] Clarity UA Clear Clear 12/13/2017 6:33 PM [facility] Specific [place] UA 1.006 1.001 - 1.030 12/13/2017 6:33 PM [facility] pH UA 5.5 5.0 - 8.0 12/13/2017 6:33 PM [facility] Protein UA Negative <=20 mg/dL 12/13/2017 6:33 PM [facility] Glucose UA Negative Negative mg/dL 12/13/2017 6:33 PM [facility] Ketone UA Negative Negative mg/dL 12/13/2017 6:33 PM [facility] Bilirubin UA Negative Negative mg/dL 12/13/2017 6:33 PM [facility] Blood UA Moderate(A) Negative 12/13/2017 6:33 PM [facility] Nitrite UA Negative Negative 12/13/2017 6:33 PM [facility] Leukocyte Esterase Negative Negative 12/13/2017 6:33 PM [facility] Urobilinogen UA <2.0 <2.0 mg/dL 8 6:33 PM [facility] RBC UA 2 0 - 8 /HPF 12/13/2017 6:33 PM [facility] WBC UA 1 0 - 2 /HPF 12/13/2017 6:33 PM [facility] Bacteria UA Rare Rare, Occasional, None /HPF 12/13/2017 6:33 PM [facility] Squamous Epithelial Cells UA <1 0 - 1 /HPF 12/13/2017 6:33 PM [facility] Mucus UA Rare(A) None /LPF 12/13/2017 6:33 PM [facility] Urine URINE SPECIMEN OBTAINED BY CLEAN CATCH PROCEDURE / Unknown Collection / Unknown 12/13/2017 6:24 PM CDT 12/13/2017 6:28 PM T Roderick Cintron MD LAB - URINALYSIS ORD ERABLES [facility] [address] [place] [address], [facility] [phone] * CULTURE URINE (12/13/2017 6:24 PM CDT) Culture Urine No growth (<100 CFU/mL) [place] 12/15/2017 6:23 AM CDT [facility] Urine URINE SPECIMEN OBTAINED BY CLEAN CATCH PROCEDURE / Unknown Collection / Unknown 12/13/2017 6:24 PM CDT 12/13/2017 6:28 PM CDT Roderick Cintron MD LAB - MICROBIOLOGY O RDERABLES Performing Organization Address City/[facility]/ZIP Co de Phone Number [facility] [address] [place], [place] [address], [facility] [phone] Care Teams Community Relations Specialist Relationship Specialty Start Date End Date Ryan Metz MD [address] [place] [id number] PCP - General 05/15/17
--- OUTSIDE RECORDS SUMMARY | 2024-05-27 20:04 | XMS_ITS | Referral Summary ---
Author Organization [facility] [employer] Address [address] [place] [address] Care Team Providers Care Field Recorder Name Role Phone Ryan Metz MD Primary Care Provider [phone] Source Comments [facility],non-[facility] Affiliates and Associated Physician Practices is amultiple site organization consisting of ambulatory clinics and hospital sitesin [place], [place], [place] and [place]. This disclosure is being madepursuant to the Care Everywhere program and may not contain all information available regarding this patient. Last updated 17.[facility] [employer] Allergies Active Allergy Reactions Criticality Noted Date [...] 6:14 PM 12/14/2017 4:52 PM Care Teams Field Recorder Relationship Specialty Start Date End Date Ryan Metz MD [address] [place] [id number] PCP - General 05/15/17
--- OUTSIDE RECORDS SUMMARY | 2024-05-27 20:04 | XMS_ITS | Clinical Summary ---
Author Organization [facility] [employer] Address [address] [place] [address] Care Team Providers Care It Security Specialist Name Role Phone Ryan Metz MD Primary Care Provider [phone] Source Comments [facility],non-[facility] Affiliates and Associated Physician Practices is amultiple site organization consisting of ambulatory clinics and hospital sitesin [place], [place], [place] and [place]. This disclosure is being madepursuant to the Care Everywhere program and may not contain all information available regarding this patient. Last updated 17.[facility] Allergies Active Allergy Reactions Criticality Noted Date [...] 6:14 PM 12/14/2017 4:52 PM Care Teams It Security Specialist Relationship Specialty Start Date End Date Ryan Metz MD [address] [place] [id number] PCP - General 05/15/17
[2024-05-27 20:20] VITALS: BMI 37.3
[2024-05-27 21:03] VITALS: BP 122/74; PULSE 113; RESP 20; TEMP 36.6; O2SAT 99
--- OUTSIDE RECORDS SUMMARY | 2024-05-27 23:13 | XMS_ITS | Encounter Summary ---
Author Organization [facility] Address [address] [place] [address] Care Team Providers Care Cloth Tester Name Role Phone Bhavna Ventura PA-C Primary Care Provider [phone] ePtey York MD Primary Care Provider [phone] Catalino Koch MD Unavailable Bhavna Ventura PA-C Primary Care Provider [phone] Encounter Details Date Type Department Care Team (Late st Contact Info) Description 12/28/[address] [facility] [address] [facility] [address] [place] [address] [place] [address] [place] [address] pain Social History Tobacco Use [...] on filedocumented in this encounter Care Teams Cloth Tester Relationship Specialty Start Date End Date Bhavna Ventura PA-C [address] [place] [address] [address] [place] [address] PCP - General PHYSICIAN CONCRETE PLANT LABORER 12/24/21 01/16/23 Petey York MD [address] [place] [address] PCP - General FAMILY PRACTICE 01/17/23 05/26/24 Bhavna Ventura PA-C [address] [place], [place] [address] [place] [address] PCP - General PHYSICIAN CONCRETE PLANT LABORER 05/27/24 Catalino Koch MD [address] [facility] [address] [place] [address] GENERAL SURGERY 05/27/24 documented as of this encounter
--- OUTSIDE RECORDS SUMMARY | 2024-05-27 23:14 | XMS_ITS | Clinical Summary ---
Author Organization [facility] Address [address] [place] [address] Care Team Providers Care Adult Specialist Name Role Phone Ryan Metz MD Primary Care Provider [phone] Source Comments [facility],non-[facility] Affiliates and Associated Physician Practices is amultiple site organization consisting of ambulatory clinics and hospital sitesin [place], [place], [place] and [place]. This disclosure is being madepursuant to the Care Everywhere program and may not contain all information available regarding this patient. Last updated 17.[facility] Allergies Active Allergy Reactions Criticality Noted Date [...] 6:14 PM 12/14/2017 4:52 PM Care Teams Adult Specialist Relationship Specialty Start Date End Date Ryan Metz MD [address] [place] [address] PCP - General 05/15/17
--- OUTSIDE RECORDS SUMMARY | 2024-05-27 23:14 | XMS_ITS | Referral Summary ---
Author Organization [facility] dough Address [address] [place] [address] Care Team Providers Care Census Taker Name Role Phone Ryan Metz MD Primary Care Provider [phone] Source Comments [facility],non-[facility] Affiliates and Associated Physician Practices is amultiple site organization consisting of ambulatory clinics and hospital sitesin [place], [place], [place] and [place]. This disclosure is being madepursuant to the Care Everywhere program and may not contain all information available regarding this patient. Last updated 17.[facility] Allergies Active Allergy Reactions Criticality Noted Date [...] 6:14 PM 12/14/2017 4:52 PM Care Teams Census Taker Relationship Specialty Start Date End Date Ryan Metz MD [address] [place] [address] PCP - General 05/15/17
--- OUTSIDE RECORDS SUMMARY | 2024-05-27 23:14 | XMS_ITS | Encounter Summary ---
Author Organization [facility] Address [address] [facility] [place] [place] [address] Care Team Providers Care Edge Blacker Name Role Phone Ryan Metz MD Primary Care Provider [phone] Encounter Details Date Type Department Care Team (Late st Contact Info) Description 12/28/2023 Lab Requisition [facility] - Pathology Lab [address] [place] [address] Enrrique Gandara MD [address] [facility] [address] [place] [address] Illness, unspecified Social History Tobacco Use [...] unspecified documented in this encounter Care Teams Edge Blacker Relationship Specialty Start Date End Date Ryan Metz MD [address] [place] [address] PCP - General 05/15/17 documented as of this encounter
--- OUTSIDE RECORDS SUMMARY | 2024-05-27 23:14 | XMS_ITS | Encounter Summary ---
Author Organization [facility] Address [address] [place] [address] Care Team Providers Care Medicaid Nurse Name Role Phone Ryan Metz MD Primary Care Provider [phone] Encounter Details Date Type Department Care Team (Late st Contact Info) Description 12/14/2023 Lab Requisition [facility] - DermPath Lab [address] [facility], [place] [address] Fina Cueto MD [address] [facility] [address] [place] [address] Social History Tobacco Use Types [...] AM CDT) Case Report Dermatopathology Report Case: [id number] Authorizing Provider: Fina Cueto MD Collected: 12/14/2023 12:00 AM Ordering Location: [facility] - Received: 12/18/2023 [...] The specimen is serially sectioned and a motor vehicle representative section is submitted in cassette 1. [...] characteristic determined by the Dermatopathology Laboratory at [facility], directed by Dr. Tigre Fenton. These tests need not be, and therefore are not, approved by the [place] Food and Drug Administration. The tests are used for clinical purposes. Billing Codes Specimen Charges Stain Charges 95682 1 00276 51823 54421 08384 90716 65907 1 1 1 1 1 1 4 3:57 PM CDT DERMATOPATHOLOGY LABORATORY Embedded Images 4 3:57 PM CDT DERMATOPATHOLOGY LABORATORY Pathology/Cytolog y TISSUE SPECIMEN FROM SKIN / Unknown 12/14/2023 12/18/2023 8:49 AM CDT Fina Cueto MD LAB - PATHOLOGY/CYTO LOGY ORDERABLES DERMATOPATHOLOGY LABORATORY [facility] - Department of Dermatology [address], [address] [phone] documented in this encounter Visit Diagnoses Not on filedocumented in this encounter Care Teams Medicaid Nurse Relationship Specialty Start Date End Date Ryan Metz MD [address] [place] [address] [place] [address] PCP - General 05/15/17 documented as of this encounter
--- OUTSIDE RECORDS SUMMARY | 2024-05-27 23:14 | XMS_ITS | Continuity of Care Document ---
Author Organization [facility] Address [address] [place] [address] [address] [place] [address] Phone Care Team Providers Care Shale Miner Blasting Name Role Phone Donald JAE Marla Unavailable [...] Date Provider Providers Copied on Encounter [facility] [address], [place], [place], [id number], [place] tel:[phone] [facility] No Information Donald Gutiérrez. . Referring Provider: Delfino Cesar [address], [place], [address]. tel:[phone] [place] [address], [address] [place], [place] [address], [place], [place], [id number], tel:[phone] [facility] No Information Donald Gutiérrez. . Referring Provider: Delfino Cesar [address], [place], [address]. tel:[phone] [place] [address] [place], [place] [address], [place], [place], [id number], tel:[phone] [facility] No Information Arleth Barker. . Referring Provider: Delfino Cesar BrigetteKaylene [facility] [address], [place], [address]. tel:[phone] [place] [address] [place], [place] [address], [place], [id number], tel:[phone] [facility] No Information Arleth Barker. . Referring Provider: Delfino Cesar BrigetteKaylene [address], [place], [address]. tel:[phone] [place] [address] [place], [place] [address], [place], [place], [address], tel:[phone] [facility] No Information Arlethdoreen Barker. . Referring Provider: Delfino Cesar BrigetteKaylene [address], [place], [address]. tel:[phone] [facility] [address] [place], [place] [address], [place], [place], [address], tel:[phone] [facility] No Information Arleth Barker. . Referring Provider: Delfino Cesar BrigetteKaylene [address], [place], [address]. tel:[phone] Critical access hospital [facility], [place], [place], [address], [place] tel:[phone] [facility] No Information Arleth Mj. . Referring Provider: Delfino Cesar BrigetteKaylene [address], [place], [address]. tel:[phone] [place] [address] [address], [place], [place], [address], [place] tel:[phone] [facility] No Information Arleth Mj. . Referring Provider: Laura Albright [address], [place], [address]. tel:[phone] [place] [address], [place], [place], [address], tel:[phone] [facility] No Information Arleth Mj. . Referring Provider: Laura Albright [address], [place], [address]. tel:[phone] [place] [address], [place], [place], [address], tel:[phone] [facility] No Information Arleth Mj. . Referring Provider: Laura Albright [address], [place], [address]. tel:[phone] [facility], [place], [place], [address], [place] tel:[phone] [facility] No Information Arleth Mj. . Referring Provider: Delfino Cesar BrigetteKaylene [address], [place], [address]. tel:[phone] [facility], [place], [place], [address], [place] tel:[phone] [facility] No Information Arleth Barker. . Referring Provider: Delfino Cesar, Laura [address], [place], [address]. tel:[phone] [place] [address], [place], [place], [address], tel:[phone] [facility] No Information Arleth Barker. . Referring Provider: Delfino Cesar [address], [place], [address]. tel:[phone] [place] [address] [address], [place], [place], [address], [place] tel:[phone] [facility] No Information Arlethalex Barker. . Referring Provider: Delfino Cesar BrigetteKaylene [address], [place], [address]. tel:[phone] [place] [address], [place], [place], [address], tel:[phone] [facility] No Information Arleth Barker. . Referring Provider: Delfino Cesar BrigetteKaylene [address], [place], [address]. tel:[phone] [place] [address] [place], [place] [address], [place], [place], [address], tel:[phone] [facility] No Information Arleth Barker. . Referring Provider: Delfino Cesar BrigetteKaylene [address], [place], [address]. tel:[phone] [place] [address], [place], [place], [address], tel:[phone] [facility] No Information Arleth Barker. . Referring Provider: Delfino Cesar BrigetteKaylene [address], [place], [address]. tel:[phone] [place] [address], [place], [place], [address], [place] tel:[phone] [facility] No Information Arleth Barker. . Referring Provider: Delfino Cesar, Laura [facility] [address], [place], [address]. tel:[phone] [place] [address] [address] [facility], [place], [place], [address], tel:[phone] [facility] No Information Arleth Barker. . Referring Provider: Delfino Cesar Laura [facility] [address], [place], [address]. tel:[phone] [place] [address], [address] [facility] [address], [place], [place], [address], tel:[phone] [facility] No Information Arleth Barker. . Referring Provider: Delfino Cesar BrigetteKaylene [facility] [address], [place], [address]. tel:[phone] [place] [address] [address] [facility], [place], [place], [address], tel:[phone] [facility] No Information Arleth Barker. . Referring Provider: Delfino Cesar BrigetteKaylene [facility] [address], [place], [address]. tel:[phone] [place] [address] [address], [place], [place], [address], tel:[phone] [facility] No Information Arleth Barker. . Referring Provider: Delfino Cesar BrigetteKaylene [facility] [address], [place], [address]. tel:[phone] [place] [address], [place], [place], [address], tel:[phone] [facility] No Information Arleth Barker. . Referring Provider: Delfino Cesar, [address] [facility] [address], [place], [address]. tel:[phone] Family History Family Member Type Diagnosis Age At Onset No Information Payers Payer name Insurance type Covered democrat ID Renan caba(annie Rey [id number] Geena GALEANO LI 00 Social History Type [...]
--- OUTSIDE RECORDS SUMMARY | 2024-05-27 23:14 | XMS_ITS | Encounter Summary ---
Author Organization [facility] Address [address] [place] [address] Care Team Providers Care Furnace Roaster Name Role Phone Ryan Metz MD Primary Care Provider [phone] Bhavna Ventura PA-C Primary Care Provider [phone] Petey York MD Primary Care Provider [phone] Catalino Koch MD Unavailable Bhavna Ventura PA-C Primary Care Provider [phone] Encounter Details Date Type Department Care Team (Latest Contact Info) Description 01/16/2018 Abstract [facility] , Franco Santos MD [...] documented as of this encounter Care Teams Furnace Roaster Relationship Specialty Start Date End Date Ryan Metz MD [address] [place] [address] PCP - General INTERNAL MEDICINE 10/27/18 12/23/21 Bhavna Ventura PA-C [address] [place] [address] [address] [place] [address] PCP - General PHYSICIAN TUB WASH OPERATOR 12/24/21 01/16/23 Petey York MD [address] [place] [address] PCP - General FAMILY PRACTICE 01/17/23 05/26/24 Bhavna Ventura PA-C [address] [place] [address] [address] [place] [address] PCP - General PHYSICIAN TUB WASH OPERATOR 05/27/24 Catalino Koch MD [address] [facility] [address] [facility] [address] [place] [address] GENERAL SURGERY 05/27/24 documented as of this encounter
--- OUTSIDE RECORDS SUMMARY | 2024-05-27 23:14 | XMS_ITS | Clinical Summary ---
Author Organization [facility] Address [address] [place] [phone] Care Team Providers Care Claim Administrator Name Role Phone Uziel Teofilo Jones MD Unavailable [phone] Arian Eaton MD Unavailable [phone] Nathan Fish MD Unavailable [phone] Shara Monreal MD Unavailable [phone] Malorie Malcolm NP Unavailable Petey York MD Primary Care Provider [phone] Allergies Active Allergy Reactions Criticality Noted Date [...] tablet TAKE 1 TABLET(75 MCG) BY MOUTH BACK PAD INSPECTOR BEFORE BREAKFAST 90 tablet 1 11/03/19 24 [...] (07/30/2021): Added automatically from request for surgery [id number] Malignant neoplasm 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, estrogen receptor negative 07/23/2021 Cancer Staging:Clinical stage from 07/20/2021:Stage IB(cT1c, cN0, cM0, G3, ER-, ME-, HER2-) - Signed by Arian Eaton MD on 07/30/2021 Pathologic stage from 02/10/2022:No Stage Recommended(ypT0, pN0(sn), cM0, GX, ER- , ME-, HER2-) - Signed by Arian Eaton MD on 03/09/2022 Endometriosis 10/22/2019 Overview (10/22/2019): Added automatically from request for surgery [id number] Pelvic and perineal pain 10/22/2019 Overview (10/22/2019): Added automatically from request for surgery [id number] Persistent proteinuria 10/25/2018 Recurrent UTI 10/25/2018 Asymptomatic microscopic hematuria 10/25/2018 Acute kidney injury 12/13/2017 Resolved Problems Problem Noted Date Diagnosed Date Resolved Date Post-operative state 02/22/2022 024 Encounters Date Type Department Care Team Description 05/06/2024 2:45 PM CHEESE SUPERVISOR Office Visit [facility] [address] [place] [phone] Nathan Fish MD Malignant 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, estrogen receptor negative (HCC) (Primary Dx) 05/06/2024 2:00 PM CHEESE SUPERVISOR Office Visit [facility] Radiation Oncology [facility] [place] [address] Arian Eaton MD Malignant 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, estrogen receptor negative (HCC) (Primary Dx) 05/06/2024 Orders Only [facility] [address] [place] [address] Nathan Fish MD Invasive ductal carcinoma of breast, female, right (HCC) (Primary Dx); Malignant 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, estrogen receptor negative (HCC) 05/06/2024 Documentation [facility] [address] [place] [phone] [facility] 02/29/2024 Telephone [facility] - Imaging [address] [place] [address] [address] [place] [phone] Jocelin Jones, YANNA Follow-Up Call 24-48 Hours; Test Results 02/28/2024 10:30 AM CHEESE SUPERVISOR - 02/28/2024 11:59 PM CHEESE SUPERVISOR Hospital Encounter [facility] - Imaging [address] [place] [phone] Abnormal MRI, breast Discharge Disposition: Discharge to home or self care 02/28/2024 7:24 AM CHEESE SUPERVISOR - 02/28/2024 11:59 PM CHEESE SUPERVISOR Hospital Encounter [facility] - Imaging [address] [place] [phone] Abnormal MRI, breast Discharge Disposition: Discharge to [...] on file Legal Sex Female 12:06 AM CHEESE SUPERVISOR Gender Identity Not on file Sexual Orientation Not on file Occupation Industry Job Start Date Job End Date [employer] Physical Therapy Not on file Not on file Not on file Obstetrics History Para Term AB IAB SAB Ectopic Multiple Livin g Live Births 0 0 0 0 0 0 0 0 0 0 0 Last Filed Vital Signs Vital Sign Reading Time Taken Comments Blood Pressure 126/82 05/06/2024 1:56 PM CHEESE SUPERVISOR Pulse 98 05/06/2024 1:56 PM CHEESE SUPERVISOR Temperature 36.1 C (97 F) 05/06/2024 2:30 PM CHEESE SUPERVISOR Respiratory Rate 18 05/06/2024 1:56 PM CHEESE SUPERVISOR Oxygen Saturation 100% 05/06/2024 1:56 PM CHEESE SUPERVISOR Inhaled Oxygen Concentration - - Weight 95.7 kg (211 lb) 05/06/2024 2:30 PM CHEESE SUPERVISOR Height 162.6 cm (5' 4 ) 05/06/2024 2:30 PM CHEESE SUPERVISOR Body Mass Index 36.22 05/06/2024 2:30 PM CHEESE SUPERVISOR Plan of Treatment Health Maintenance Due Date [...] this topic Medical Devices Implanted Type Area Cloth Finishing Range Back Tender Device Identifier Shelf Expiration Date Model / Serial / Lot Apofore Magseed 18ga 7cm Marker Breast Biopsy [id number] Right: Breast Apofore [id number] 12/10/2025 [id number] / / [id number] Inc [facility] Trimark Second Marker Breast Biopsy Disposable Trimark Td 2s 13-Mr - [id number] Implanted:Qty: 1 on 02/28/2024 by Consuelo Altman MD at [facility] Right: Breast [employer] [id number] 06/13/2025 TRIMARK TD 2S 13-MR / / [id number] Explanted Type Area Cloth Finishing Range Back Tender Device Identifier Shelf Expiration Date Model / Serial / Lot [employer] Powerport Isp Mri Airguard 8fr 1 Lumen Attachable Catheter Open Latex Free [id number] - [id number] Implanted:Qty: 1 on 08/06/2021 by Koffi Brandon MD at [facility] Explanted:Qty: 1 Right: Chest [employer] 09/09/2022 [id number] / / [id number] Procedures Procedure Name Priority Date/Time Associated Diagnosis Comments MAMM POST CLIP PLACEMENT RIGHT Schedule Routine, Read Routine (OP Routine) 02/28/2024 10:50 AM CHEESE SUPERVISOR Abnormal MRI, breast MRI GUIDED BREAST BIOPSY RIGHT Schedule Routine, Read Routine (OP Routine) 02/28/2024 10:28 AM CHEESE SUPERVISOR Abnormal MRI, breast SURGICAL PATHOLOGY Routine 02/28/2024 10:01 AM CHEESE SUPERVISOR Abnormal MRI, breast PAP AND HPV, REFLEX TO HPV GENOTYPES Routine 09/18/2023 4:32 AM CDT Screening for cervical cancer Screening for human papillomavirus (HPV) HEPATITIS C ANTIBODY Routine 07/11/2022 1:00 PM CDT from Last 3 Months or Most Recently Relevant to Health Maintenance Results * Mammo Post Clip Placement Right (02/28/2024 10:50 AM CHEESE SUPERVISOR) Anatomical Region Laterality Modality Breast Right Mammography 02/28/2024 11:3 1 AM CHEESE SUPERVISOR Addenda Addendum by Consuelo Altman MD on 02/29/2024 4:10 PM CHEESE SUPERVISOR Pathology report for MRI guided core needle [...] patient by the nursing staff of the [facility]. Electronically signed by: Consuelo Altman M.D. Impressions 02/28/2024 11:31 AM CHEESE SUPERVISOR Successful MRI guided biopsy of enhancement in the lumpectomy site of the right breast. Pathology report is pending. ASSESSMENT: Post-procedure mammogram for marker placement. Electronically signed by: Consuelo Altman M.D. Narrative 02/28/2024 11:31 AM CHEESE SUPERVISOR MRI GUIDED CORE NEEDLE BIOPSY RIGHT BREAST, [...] made with a #11 blade. A 9-gauge [facility] vacuum-assisted biopsy needle was advanced to [...] tolerated the procedure well, and left the [facility] in good condition, without evidence of immediate complication. us Nathan Fish MD IMG MAMMO PROCEDURES Edite d Result - Final * MRI Guided Breast Biopsy Right (02/28/2024 10:28 AM CHEESE SUPERVISOR) Anatomical Region Laterality Modality Breast Right Magnetic Resonan ce 02/28/2024 11:3 1 AM CHEESE SUPERVISOR Addenda Addendum by Consuelo Altman MD on 02/29/2024 4:10 PM CHEESE SUPERVISOR Pathology report for MRI guided core needle [...] patient by the nursing staff of the [facility]. Electronically signed by: Consuelo Altman M.D. Impressions 02/28/2024 11:31 AM CHEESE SUPERVISOR Successful MRI guided biopsy of enhancement in the lumpectomy site of the right breast. Pathology report is pending. ASSESSMENT: Post-procedure mammogram for marker placement. Electronically signed by: Consuelo Altman M.D. Narrative 02/28/2024 11:31 AM CHEESE SUPERVISOR MRI GUIDED CORE NEEDLE BIOPSY RIGHT BREAST, [...] made with a #11 blade. A 9-gauge [facility] vacuum-assisted biopsy needle was advanced to [...] tolerated the procedure well, and left the [facility] in good condition, without evidence of immediate complication. us Nathan Fish MD IMG MRI PROCEDURES Edited Result - Final * Surgical pathology (02/28/2024 10:01 AM CHEESE SUPERVISOR) Tissue (Breast biopsy, needle core) 02/28/2024 10:01 AM CHEESE SUPERVISOR Narrative PATHOLOGY [facility] - 02/29/2024 12:16 PM CHEESE SUPERVISOR [address] [address] Tele: Jocelin Browne MD - Manager Digital Note to Patients: This report may contain [...] PATHOLOGY REPORT Patient Name: LATRICE TATE Address: [address] [place] [address] Gender: F : 1990 (Age: 34) Service: Location: , Hospital #: [id number] [place] [facility] [place] Taken: 02/28/2024 Received 02/28/2024 Reported: 02/29/2024 Physician(s): [facility] - Dr. Altman DIAGNOSIS: Breast, [...] is entirely submitted in cassettes labeled A1-A3. [facility] MICROSCOPIC DESCRIPTION: Microscopic examination supports the above captioned diagnosis. There is no atypical hyperplasia or malignancy. Clerical Data Follows A; [id number] REPORT IMAGES AND/OR SCANNED DOCUMENTS ONLY VIEWABLE IN PDF FORMAT The immunohistochemical test(s) cited in this report, if any, was developed and its performance characteristics determined by [facility] Pathology Department. It has not been cleared or approved by the U.S. Food and Drug Administration. The FDA has determined that such clearance or approval is not necessary. This test is used for clinical purposes. It should not be regarded as investigational or for research. [facility] Laboratory is certified under the Clinical [...] part or completely in the following laboratories: [facility], [address], [place] [address] [facility], [address] [facility], [place] [address]. Nathan Fish MD LAB PATHOLOGY ORDERABLES F inal Result PATHOLOGY [facility] Laboratory Receiving [address], [place] [id number] * (ABNORMAL) Pap and HPV, reflex to [...] 09/20/2023 2:11 PM CDT Performed at: - [address] [id number] Alarm Security Or Surveillance Monitor: Yumiko Hubbard MD, Phone: [phone] Performed at: - [address] [id number] Alarm Security Or Surveillance Monitor: Yumiko Hubbard MD, Phone: [phone] Specimen Comment: Source.............Cervix;Endocervix Specimen Comment: No. of containers..01 ThinPrep Vial Shara Monreal MD LAB CYTOLOGY ORDERABLES F inal Result Performing Organization Address [facility] [address]/ZIP Co de Phone Number [facility] 02 * Hepatitis C antibody (07/11/2022 1:00 PM CDT) Hep C Ab Nonreactive Nonreactive [facility] Comment: Interpretive Data Nonreactive: Antibodies to [...] GENERA L ORDERABLES Edited Result - Final [facility] [address] Department [place] [address] from Last 3 Months or Most Recently Relevant to Health Maintenance [facility] [id number] [place], [place] [address] Care Teams Claim Administrator Relationship Specialty Start Date End Date Petey York MD [address] [place], [place] [id number] PCP - General Family Medicine 03/01/22 Teofilo Triplett MD [address] [place] [address] Medical Oncologist/Pulp Refiner Operator Hematology and Oncology 07/22/21 Arian Eaton MD [address] [place] [address] Consulting Physician Radiation Oncology 07/22/21 Nathan Fish MD [address] [place] [address] Consulting Physician Surgical Oncology 07/28/21 Shara Monreal MD [address] [place], [place] [phone] Consulting Physician Obstetrics and Gynecology 07/28/21 Malorie Malcolm, LANEY [address] [place] [address] Nurse Practitioner Surgery 12/22/21
--- OUTSIDE RECORDS SUMMARY | 2024-05-27 23:14 | XMS_ITS | Encounter Summary ---
Author Organization [facility] Address [facility] [place] [address] Care Team Providers Care Printing Estimator Name Role Phone Catalino Koch MD Unavailable Bhavna Ventura PA-C Primary Care Provider [phone]- [phone] Reason for Visit * Reason Comments Abdominal Pain Encounter Details Date Type Department Care Team (Late Contact [facility]) Description 05/27/2024 1:49 PM CDT - 05/27/2024 7:23 PM CDT Emergency [facility] Emergency Room [id number] [place] [address] Tamela Barreto MD [address] [place] [address] [id number] Abdominal Pain Discharge Disposition: Transfer to Acute [...] tablet TAKE 1 TABLET(75 MCG) BY MOUTH HOSPICE MANAGER BEFORE BREAKFAST 01/26/2023 montelukast (SINGULAIR) 10 MG [...] 05/27/2024 4:48 PM CDT Call placed to Finance Advisor at [facility] took patient information and will have [employer] return call * Tamela Barreto MD - 05/27/2024 3:48 PM CDT Chief Complaint Chief Complaint Patient presents with Abdominal Pain History of Present Illness This is a 34 year old female who presents with complaint of abdominal pain s/p cholecystectomy. Patient reports she had laparoscopy cholecystectomy at an outside hospital on 05/24/24 as an outpatient.She states she has had abdominal pain since her surgery. She reports her pain has worsened today. Her pain is worse with movement and laying down. She has been taking norco for her pain but she is out of her medication. She last took her pain medication last night. She also reports she is having difficulty urinating, and she is urinating small amounts at time. She denies fever. She is eating verylittle. She states she went to hospital that her surgery was performed and she left because they put her in waiting room. History provided by: Patient Abdominal Pain Pain location: RUQ Associated symptoms: nausea Associated symptoms: no dysuria and no hematuria Medical History ALLERGIES: Review of patient's allergies indicates: Allergen Reactions Nitrofurantoin Rash, Itching and Anxiety Rosuvastatin Rash Carboplatin Unknown Patient unsure, states it started with her stomach Doxycycline Nausea Only Oxycodone Vomiting Sulfamethoxazole-Trimethoprim Unknown Ciprofloxacin GI Upset MEDICATIONS: Prior to Admission medications Medication Sig Start Date End Date Taking? Authorizing Provider cetirizine (ZYRTEC) 10 MG tablet Take 0.5 tablets (5 mg total) by mouth daily. Yes Default History Genericprovider levothyroxine (SYNTHROID) 75 MCG tablet TAKE 1 TABLET(75 MCG) BY MOUTH HOSPICE MANAGER BEFORE BREAKFAST 01/26/23 Yes Default History Genericprovider montelukast (SINGULAIR) 10 MG tablet Take 1 tablet (10 mg total) by mouth nightly at bedtime. Yes Default History Genericprovider NEXLETOL 180 MG Tab Take 180 mg by mouth daily. 06/25/23 Yes Default History Genericprovider ALPRAZolam (XANAX) 0.25 MG tablet Take 1 tablet (0.25 mg total) by mouth daily as needed. 05/13/22 Default History Genericprovider EPIPEN 2-ADDISON 0.3 MG/0.3ML injection Inject 0.3 mLs (0.3 mg total) into the muscle as needed for Anaphylaxis. Default History Genericprovider traMADol (ULTRAM) 50 MG tablet Take 1 tablet (50 mg total) by mouth every 6 (six) hours as needed. 05/13/22 Default History Genericprovider VYFEMLA 0.4-35 MG-MCG tablet Take 1 tablet by mouth daily. Patient not taking: Reported on 10/11/2023 06/10/22 Default History Genericprovider PAST MEDICAL HISTORY: Past Medical History: Diagnosis Date Breast cancer Endometriosis H/O therapeutic radiation Hypothyroidism, unspecified PAST SURGICAL HISTORY: Past Surgical History: Procedure Laterality Date BREAST LUMPECTOMY Right 02/10/2022 LAPAROSCOPIC ENDOMETRIOSIS FULGURATION TONSILLECTOMY FAMILY HISTORY: Family History Problem Relation Name Age of Onset None Mother None Father SOCIAL HISTORY: Social History Tobacco Use Smoking status: Never Passive exposure: Never Smokeless tobacco: Never Tobacco comments: na Vaping Use Vaping status: Never Used Substance Use Topics Alcohol use: No Drug use: Not Currently Types: Marijuana Comment: occ Review of Systems Review of Systems Gastrointestinal: Positive for abdominal pain and nausea. Genitourinary: Positive for difficulty urinating. Negative for dysuria and hematuria. Physical Exam Filed Vitals: 05/27/24 1355 05/27/24 1853 05/27/24 1900 BP: (!) 133/98 116/89 116/79 Pulse: (!) 114 (!) 113 Resp: 22 18 Temp: 98.8 ??F (37.1 ??C) 97.8 ??F (36.6 ??C) TempSrc: Temporal Temporal SpO2: 100% 99% 98% Weight: 95.3 kg (210 lb) Height: 1.626 m (5' 4 ) Physical Exam Vitals and nursing note reviewed. Constitutional: Comments: Appears to be pain , hyperventilating HENT: Head: Normocephalic and atraumatic. Right Ear: External ear normal. Left Ear: External ear normal. Mouth/Throat: Mouth: Mucous membranes are moist. Pharynx: Oropharynx is clear. Eyes: Extraocular Movements: Extraocular movements intact. Pupils: Pupils are equal, round, and reactive to light. Cardiovascular: Rate and Rhythm: Regular rhythm. Tachycardia present. Pulses: Normal pulses. Heart sounds: No murmur heard. Pulmonary: Effort: No respiratory distress. Breath sounds: Normal breath sounds. No wheezing. Comments: hyperventilating Abdominal: General: Bowel sounds are decreased. There is no distension. Palpations: Abdomen is soft. Tenderness: There is no abdominal tenderness. Musculoskeletal: General: No swelling, tenderness or deformity. Cervical back: Normal range of motion and neck supple. No rigidity. Skin: General: Skin is warm and dry. Capillary Refill: Capillary refill takes less than 2 seconds. Comments: She has 5 incision to abdomen, that are dry, no drainage, no significant erythema Neurological: General: No focal deficit present. Mental Status: She is alert and oriented to person, place, and time. Cranial Nerves: No cranial nerve deficit. Sensory: No sensory deficit. Psychiatric: Mood and Affect: Mood normal. Behavior: Behavior normal. Thought Content: Thought content normal. Diagnostic Studies / Procedures ELECTROCARDIOGRAMS: No results found for this visit on 05/27/24. LABORATORY STUDIES: Results for orders placed or performed during the hospital encounter of 05/27/24 CBC W/DIFF AUTOMATED Result Value Ref Range WBC 8.63 4.4 - 11.0 x10'3/uL RBC 4.30 (L) 4.50 - 5.10 x10'6/uL HGB 12.8 12.3 - 15.3 G/DL HCT 38.4 35.9 - 44.6 % MCV 89.3 80.0 - 96.0 FL MCH 29.8 25.3 - 30.9 PG MCHC 33.3 31.0 - 34.1 G/DL RDW 12.5 12.4 - 15.1 % PLT 361 (H) 151 - 353 x10'3/uL MPV 9.3 (L) 9.6 - 12.0 FL RBC MORPHOLOGY NORMAL PLT MORPH. NORMAL WBC MORPHOLOGY NORMAL LYMPHOCYTES % 19.5 15.8 - 45.0 % NEUTROPHILS % 66.3 42.1 - 71.9 % MONOCYTES % 7.4 5.7 - 12.5 % EOSINOPHILS 5.8 (H) 0.0 - 5.6 % BASOPHILS 0.7 0.0 - 1.3 % ABS. NEUTROPHILS 5.72 1.40 - 6.00 x10'3/uL IMMATURE GRANS % 0.3 0.0 - 0.5 % ABS. LYMPHOCYTES 1.68 0.80 - 4.70 x10'3/uL PROTIME/INR, VENOUS Result Value Ref Range PROTIME 13.2 (H) 9.1 - 12.4 SEC INR 1.1 PARTIAL THROMBOPLASTIN TIME,PTT Result Value Ref Range PTT 35.5 27.0 - 36.8 SEC COMPREHENSIVE METABOLIC PANEL Result Value Ref Range GLUCOSE 106 (H) 70 - 99 MG/DL BUN 12 7 - 18 MG/DL CREATININE S/P/B 0.63 0.55 - 1.02 MG/DL SODIUM S/P/B 139 136 - 145 MMOL/L POTASSIUM S/P/B 3.7 3.5 - 5.1 MMOL/L CHLORIDE S/P/B 104 100 - 108 MMOL/L CO2 21.7 21 - 32 MMOL/L CALCIUM S/P/B 9.6 8.5 - 10.1 MG/DL BILIRUBIN TOTAL S/P/B 0.8 0.2 - 1.2 MG/DL TOTAL PROTEIN S/P/B 7.4 6.4 - 8.2 G/DL ALBUMIN S/P/B 3.8 3.4 - 5.0 G/DL AST 48 (H) 15 - 37 U/L ALT 62 (H) 14 - 55 U/L ALKALINE PHOSPHATASE S/P/B 125 50 - 136 U/L ANION GAP 13.3 5 - 15 MMOL/L BUN CREATININE RATIO 19.0 6 - 26 A/G RATIO 1.1 1.0 - 2.0 RATIO GFR ESTIMATE >90 >90 ML/MIN/1.73 M2 LIPASE Result Value Ref Range LIPASE 29 16 - 77 UNITS/L URINALYSIS, AUTO, COMPLETE Result Value Ref Range COLOR (U) YELLOW TRANSPARENCY CLEAR SPECIFIC GRAVITY (U) 1.015 1.000 - 1.030 U PH 7.0 5.0 - 9.0 LEUKOCYTES (U) NEGATIVE NEGATIVE NITRITES NEGATIVE NEGATIVE PROTEIN RANDOM (U) NEGATIVE NEGATIVE GLUCOSE (U) NEGATIVE NEGATIVE KETONES MG/DL (U) NEGATIVE NEGATIVE BILIRUBIN (U) NEGATIVE NEGATIVE BLOOD (U) NEGATIVE NEGATIVE WBC/HPF NONE SEEN 0 - 5 /HPF RBC/HPF NONE SEEN 0 - 5 /HPF EPI/HPF FEW /HPF URINE ARDON FEW TEST URINE Result Value Ref Range URINE HCG TEST NEGATIVE NEGATIVE IMAGING STUDIES No orders to display ED Course / Medical Decision Making Medical Decision Making Amount and/or Complexity of Data Reviewed Labs: ordered. Radiology: ordered. ED Course as of 05/27/242121 Mon May 27, [address] Lakhani documentation spec for Dr. Koch . I discussed patient with severe pain. He will accept patient to service at [facility]. He states patient will need CT . If unable to get CT done here she will have to get one at [facility] [KH] 1722 Patient is refusing to have CT done here [KH] 192 Patient pending transfer. Care turned over to night MD [ARLET] ED Course User Index [] Tamela Barreto MD Clinical Impression Postoperative abdominal pain (Primary) Intractable abdominal pain Disposition: Transfer to Another Facility Tamela Barreto MD 05/27/242121 * Elaine Perea RN - 05/27/2024 1:52 [...] TEST NEGATIVE NEGATIVE 05/27/2024 3:42 PM CDT [facility] Comment: VERY DILUTE URINE SPECIMENS MAY NOT CONTAIN ROUNDING MACHINE TENDER LEVELS OF HCG. IF IS STILL SUSPECTED, A SERUM HCG TEST IS RECOMMENDED. URINE SPECIMEN FROM [facility] / Unknown 05/27/2024 3:30 PM CDT Tamela Barreto MD URINE ORDERABLES Final Result [facility] [address] [place] [address], [place] [phone] * URINALYSIS, AUTO, COMPLETE (05/27/2024 3:30 PM CDT) COLOR (U) YELLOW 05/27/2024 3:45 PM CDT [facility] TRANSPARENCY CLEAR 05/27/2024 3:45 PM CDT [facility] SPECIFIC GRAVITY (U) 1.015 1.000 - 1.030 05/27/2024 3:45 PM CDT [facility] U PH 7.0 5.0 - 9.0 05/27/2024 3:45 PM CDT [facility] LEUKOCYTES (U) NEGATIVE NEGATIVE 05/27/2024 3:45 PM CDT [facility] NITRITES NEGATIVE NEGATIVE 05/27/2024 3:45 PM CDT [facility] PROTEIN RANDOM (U) NEGATIVE NEGATIVE 05/27/2024 3:45 PM CDT [facility] GLUCOSE (U) NEGATIVE NEGATIVE 05/27/2024 3:45 PM CDT [facility] KETONES MG/DL (U) NEGATIVE NEGATIVE 05/27/2024 3:45 PM CDT [facility] BILIRUBIN (U) NEGATIVE NEGATIVE 05/27/2024 3:45 PM CDT [facility] BLOOD (U) NEGATIVE NEGATIVE 05/27/2024 3:45 PM CDT [facility] WBC/HPF NONE SEEN 0 - 5 /HPF 05/27/2024 3:45 PM CDT [facility] RBC/HPF NONE SEEN 0 - 5 /HPF 05/27/2024 3:45 PM CDT [facility] EPI/HPF FEW /HPF 05/27/2024 3:45 PM CDT [facility] URINE ARDON FEW 05/27/2024 3:45 PM CDT [facility] Comment:MUCOUS URINE SPECIMEN OBTAINED BY CLEAN CATCH PROCEDURE / Unknown 05/27/2024 3:30 PM CDT us Tamela Barreto MD URINE ORDERABLES Final Result [facility] [address] [place] [address], [place] [phone] * LIPASE (05/27/2024 2:38 PM CDT) LIPASE 29 16 - 77 UNITS/L 05/27/2024 2:57 PM CDT [facility] 05/27/2024 2:38 PM CDT us Tamela Barreto MD LABORATORY Final Result [facility] [address] [facility] [address], [place] [phone] * (ABNORMAL) COMPREHENSIVE METABOLIC PANEL (05/27/2024 2:38 PM CDT) [facility] GLUCOSE 106(H) 70 - 99 MG/DL 05/27/2024 2:57 PM CDT [facility] BUN 12 7 - 18 MG/DL 05/27/2024 2:57 PM CDT [facility] CREATININE S/P/B 0.63 0.55 - 1.02 MG/DL 05/27/2024 2:57 PM CDT [facility] SODIUM S/P/B 139 136 - 145 MMOL/L 05/27/2024 2:57 PM CDT [facility] POTASSIUM S/P/B 3.7 3.5 - 5.1 MMOL/L 05/27/2024 2:57 PM CDT [facility] CHLORIDE S/P/B 104 100 - 108 MMOL/L 05/27/2024 2:57 PM CDT [facility] CO2 21.7 21 - 32 MMOL/L 05/27/2024 2:57 PM CDT [facility] CALCIUM S/P/B 9.6 8.5 - 10.1 MG/DL 05/27/2024 2:57 PM CDT [facility] BILIRUBIN TOTAL S/P/B 0.8 0.2 - 1.2 MG/DL 05/27/2024 2:57 PM CDT [facility] TOTAL PROTEIN S/P/B 7.4 6.4 - 8.2 G/DL 05/27/2024 2:57 PM CDT [facility] ALBUMIN S/P/B 3.8 3.4 - 5.0 G/DL 05/27/2024 2:57 PM CDT [facility] AST 48(H) 15 - 37 U/L 05/27/2024 2:57 PM CDT [facility] ALT 62(H) 14 - 55 U/L 05/27/2024 2:57 PM CDT [facility] ALKALINE PHOSPHATASE S/P/B 125 50 - 136 U/L 05/27/2024 2:57 PM CDT [facility] ANION GAP 13.3 5 - 15 MMOL/L 05/27/2024 2:57 PM CDT [facility] BUN CREATININE RATIO 19.0 6 - 26 05/27/2024 2:57 PM CDT [facility] A/G RATIO 1.1 1.0 - 2.0 RATIO 05/27/2024 2:57 PM CDT [facility] GFR ESTIMATE >90 >90 ML/MIN/1.7 3 M2 05/27/2024 2:57 PM CDT [facility] Comment: NOTE: eGFR is not calculated for patients <18 years of age. This is an estimated GFR calculation using the new CKD EPI creatinine equation without race and so does not require a correction factor for race. This estimated GFR should not be used for calculating drug doses. 05/27/2024 2:38 PM CDT Tamela Barreto MD LABORATORY Final Result [facility] [address] [place] [address], [place] [phone] * PARTIAL THROMBOPLASTIN TIME,PTT (05/27/2024 2:38 PM CDT) PTT 35.5 27.0 - 36.8 SEC 05/27/2024 2:51 PM CDT [facility] 05/27/2024 2:38 PM CDT Tamela Barreto MD LABORATORY Final Result Performing Organization Address [facility]/ZIP Co de Phone Number [facility] [address] [place] [address], [place] [phone] * (ABNORMAL) PROTIME/INR, VENOUS (05/27/2024 2:38 PM CDT) PROTIME 13.2(H) 9.1 - 12.4 SEC 05/27/2024 2:51 PM CDT [facility] INR 1.1 05/27/2024 2:51 PM CDT [facility] Comment: Recommend INR ranges for Oral Anticoagulant Therapy: Mechanical Cardiac Values 2.5-3.5 All others indication 2.0-3.0 05/27/2024 2:38 PM CDT Tamela Barreto MD LABORATORY Final Result Performing Organization Address [facility]/ZIP Co de Phone Number [facility] [address] [place] [address], [place] [phone] * (ABNORMAL) CBC W/DIFF AUTOMATED (05/27/2024 2:38 PM CDT) WBC 8.63 4.4 - 11.0 x10'3/uL 05/27/2024 2:43 PM CDT [facility] RBC 4.30(L) 4.50 - 5.10 x10'6/uL 05/27/2024 2:43 PM CDT [facility] HGB 12.8 12.3 - 15.3 G/DL 05/27/2024 2:43 PM CDT [facility] HCT 38.4 35.9 - 44.6 % 05/27/2024 2:43 PM CDT [facility] MCV 89.3 80.0 - 96.0 FL 05/27/2024 2:43 PM CDT [facility] MCH 29.8 25.3 - 30.9 PG 05/27/2024 2:43 PM T [facility] MCHC 33.3 31.0 - 34.1 G/DL 05/27/2024 2:43 PM T [facility] RDW 12.5 12.4 - 15.1 % 05/27/2024 2:43 PM T [facility] PLT 361(H) 151 - 353 x10'3/uL 05/27/2024 2:43 PM T [facility] MPV 9.3(L) 9.6 - 12.0 FL 05/27/2024 2:43 PM T [facility] RBC MORPHOLOGY NORMAL 05/27/2024 2:43 PM T [facility] PLT MORPH. NORMAL 05/27/2024 2:43 PM T [facility] WBC MORPHOLOGY NORMAL 05/27/2024 2:43 PM T [facility] LYMPHOCYTES % 19.5 15.8 - 45.0 % 05/27/2024 2:43 PM T [facility] NEUTROPHILS % 66.3 42.1 - 71.9 % 05/27/2024 2:43 PM T [facility] MONOCYTES % 7.4 5.7 - 12.5 % 05/27/2024 2:43 PM CDT [facility] EOSINOPHILS 5.8(H) 0.0 - 5.6 % 05/27/2024 2:43 PM T [facility] BASOPHILS 0.7 0.0 - 1.3 % 05/27/2024 2:43 PM T [facility] ABS. NEUTROPHILS 5.72 1.40 - 6.00 x10'3/uL 05/27/2024 2:43 PM CDT [facility] IMMATURE GRANS % 0.3 0.0 - 0.5 % 05/27/2024 2:43 PM CDT [facility] ABS. LYMPHOCYTES 1.68 0.80 - 4.70 x10'3/uL 05/27/2024 2:43 PM CDT [facility] 05/27/2024 2:38 PM CDT us Tamela Barreto MD LABORATORY Final Result [facility] [address] [place] [address], documented in this encounter Visit Diagnoses Diagnosis [...] RN) documented in this encounter Care Teams Printing Estimator Relationship Specialty Start Date End Date Bhavna Ventura PA-C [address] [place] [address] PCP - General PHYSICIAN ART PREPARATOR 05/27/24 Catalino Koch MD [address] [facility] [address] [place] [address] GENERAL SURGERY 05/27/24 documented as of this encounter
--- OUTSIDE RECORDS SUMMARY | 2024-05-27 23:14 | XMS_ITS | Patient Health Summary ---
Author Organization [facility] Address [address] [place] [address] Care Team Providers Care Network Technician Name Role Phone Ryan Metz MD Primary Care Provider [phone] Note from [facility],non-owned Affiliates and Associated Physician Practices is amultiple site organization consisting of ambulatory clinics and hospital sitesin [place], [place], [place] and [place]. This disclosure is being madepursuant to the Care Everywhere program and may not contain all information available regarding this patient. Last updated 17.[facility] Allergies * Doxycycline(Nausea and/or Vomiting) Medications [...] AM CDT) Case Report Dermatopathology Report Case: [id number] Authorizing Provider: Fina Cueto MD Collected: 12/14/2023 12:00 AM Ordering Location: [facility] - Received: 12/18/2023 08:49 AM DermPath Lab Pathologist: Desi Doan MD Specimen: Skin, under right breast 3:57 PM CDT DERMATOPATHOLOGY LABORATORY Final Diagnosis Specimen A. SKIN, under right breast: VASCULAR PROLIFERATION, SUPERFICIAL PORTIONS OF (D48.5) (see microscopic description and comment) 3:[address] [facility] DERMATOPATHOLOGY LABORATORY Clinical History Cyst vs dermatofibroma, r/o other 3:[address] [facility] DERMATOPATHOLOGY LABORATORY Gross Description Specimen A: Received is one formalin filled container labeled with the patient's name and designated under right breast. The specimen consists of a 3x3x4 mm piece of skin. The specimen is serially sectioned and a novelties sales representative section is submitted in cassette 1. Jar 1. 3:[address] [facility] DERMATOPATHOLOGY LABORATORY Microscopic Description Specimen A. SKIN, [...] Dai Fenton, who agrees. 3:[address] [facility] DERMATOPATHOLOGY LABORATORY Disclaimer An external and internal positive and negative controls are appropriate for the histochemical, immunohistochemical and immunofluorescence stain(s) in this case (if any), except where stated explicitly. The performance characteristics of the stain(s) cited in this report were developed and its performance characteristic determined by the Dermatopathology Laboratory at [facility], directed by Dr. Tigre Fenton. These tests need not be, and therefore are not, approved by the [place] Food and Drug Administration. The tests are used for clinical purposes. Billing Codes Specimen Charges Stain Charges 38518 1 29366 67180 25880 88976 07351 33528 1 1 1 1 1 1 4 3:57 PM CDT DERMATOPATHOLOGY LABORATORY Embedded Images 4 3:57 PM CDT DERMATOPATHOLOGY LABORATORY Pathology/Cytolog y TISSUE SPECIMEN FROM SKIN / Unknown 12/14/2023 12/18/2023 8:49 AM CDT Fina Cueto MD LAB - PATHOLOGY/CYTO LOGY ORDERABLES DERMATOPATHOLOGY LABORATORY [facility] - Department of Dermatology [address], [address] [phone] * US KIDNEY WITH DOPPLER (12/14/2017 9:02 AM CDT) Anatomical Region Laterality Modality Ultrasound 12/14/2017 9:17 AM CDT Impressions 12/14/2017 12:48 PM CDT IMPRESSION: 1. No ultrasonographic evidence of pyelonephritis. 2. Patent renal vasculature. Dictated by Subha Marquez MD (secretary to the vice president). This report was approved by Subha Marquez [...] renal vasculature. Dictated by Subha Marquez MD (secretary to the vice president). This report was approved by Subha Marquez on 12/14/2017 10:01 AM . I, Dr. KAROL ALLRED M.D. have personally reviewed and interpretedthis examination/study. This report was electronically signed by KAROL ALLRED M.D. on 12/14/2017 12:48 PM . Roderick Cintron MD US ORDERABLES * (ABNORMAL) CBC W/O DIFFERENTIAL (12/14/2017 3:27 AM CDT) WBC 7.5 3.5 - 10.5 10 3/uL 12/14/2017 3:49 AM CDT [facility] RBC 3.69(L) 3.90 - 5.00 10 6/uL 12/14/2017 3:49 AM [facility] Hemoglobin 10.9(L) 12.0 - 15.5 g/dL 12/14/2017 3:49 AM [facility] Hematocrit 32.0(L) 35.0 - 45.0 % 12/14/2017 3:49 AM [facility] MCV 86.7 81.0 - 97.0 fL 12/14/2017 3:49 AM [facility] MCH 29.5 28.0 - 34.0 pg 12/14/2017 3:49 AM [facility] MCHC 34.1 32.0 - 36.0 g/dL 12/14/2017 3:49 AM [facility] Platelet Count 226 150 - 400 10 3/uL 12/14/2017 3:49 AM [facility] RDW-SD 39.7 36.0 - 50.0 fL 12/14/2017 3:49 AM [facility] RDW-CV 12.4 11.2 - 14.8 % 12/14/2017 3:49 AM [facility] MPV 9.6 9.3 - 12.8 fL 12/14/2017 3:49 AM [facility] Blood BLOOD SPECIMEN / Unknown Lab Venipuncture / Unknown 12/14/2017 3:27 AM CDT 12/14/2017 3:45 AM T Roderick Cintron MD LAB - HEMATOLOGY ORD ERABLES [facility] [address] [phone] * (ABNORMAL) BASIC METABOLIC PANEL (CALCIUM TOTAL) (12/14/2017 3:27 AM CDT) BUN 14 7 - 26 mg/dL 12/14/2017 4:09 AM [facility] Creatinine 1.3(H) 0.6 - 1.2 mg/dL 12/14/2017 4:09 AM [facility] Sodium 140 136 - 145 mmol/L 12/14/2017 4:09 AM [facility] Potassium 3.8 3.5 - 4.5 mmol/L 12/14/2017 4:09 AM [facility] Chloride 110(H) 98 - 107 mmol/L 12/14/2017 4:09 AM [facility] CO2 22 22 - 29 mmol/L 12/14/2017 4:09 AM [facility] Glucose 101 70 - 115 mg/dL 12/14/2017 4:09 AM [facility] Calcium 8.7 8.4 - 10.2 mg/dL 12/14/2017 4:09 AM [facility] Anion Gap 12 8 - 18 12/14/2017 4:09 AM [facility] BUN/Creatinine Ratio 11 7 - 23 12/14/2017 4:09 AM [facility] Osmolality Calculated 291 270 - 300 mOsm/kg 12/14/2017 4:09 AM [facility] eGFR 50(L) >60 mL/min/1.7 3 m2 12/14/2017 4:09 AM [facility] Blood BLOOD SPECIMEN / Unknown Lab Venipuncture / Unknown 12/14/2017 3:27 AM CDT 12/14/2017 3:44 AM CDT Roderick Cintron MD LAB - CHEMISTRY [place] [facility]PTA [address] [phone] * HCG URINE QUALITATIVE (12/13/2017 8:38 PM CDT) Test Urine Negative Negative 12/13/2017 8:44 PM T [facility] Urine URINE / Unknown Collection / Unknown 12/13/2017 8:38 PM CDT 12/13/2017 8:38 PM CDT Yady Esquivel DO LAB - URINALY SIS ORDERABLES Performing Organization Address City/[facility]/ZIP Co de Phone Number [address] [phone] * SODIUM URINE RANDOM (12/13/2017 8:37 PM CDT) Sodium Urine 120 Not Established mmol/L 12/13/2017 9:09 PM CDT [facility] Urine URINE SPECIMEN OBTAINED BY CLEAN CATCH PROCEDURE / Unknown Collection / Unknown 12/13/2017 8:37 PM CDT 12/13/2017 8:37 PM CDT Roderick Cintron MD LAB - URINE CHEMISTR Y ORDERABLES [address] [phone] * UREA NITROGEN URINE RANDOM (12/13/2017 8:37 PM CDT) Urea Nitrogen Random Urine 202 Not Established mg/dL 12/13/2017 9:09 PM CDT [facility] Urine URINE SPECIMEN OBTAINED BY CLEAN CATCH PROCEDURE / Unknown Collection / Unknown 12/13/2017 8:37 PM CDT 12/13/2017 8:37 PM CDT Roderick Cintron MD LAB - URINE CHEMISTR Y ORDERABLES Performing Organization Address City/[facility]/ZIP Co de Phone Number [address] [phone] * POTASSIUM URINE RANDOM (12/13/2017 8:37 PM CDT) Potassium Urine 10 Not Established mmol/L 12/13/2017 9:09 PM CDT [facility] Urine URINE SPECIMEN OBTAINED BY CLEAN CATCH PROCEDURE / Unknown Collection / Unknown 12/13/2017 8:37 PM CDT 12/13/2017 8:37 PM CDT Roderick Cintron MD LAB - URINE CHEMISTR Y ORDERABLES Performing Organization Address [facility]/ZIP Co de Phone Number [address] [phone] * OSMOLALITY URINE (12/13/2017 8:37 PM CDT) Osmolality Urine 342 50 - 1,200 mOsm/kg 12/13/2017 9:01 PM CDT [facility] Urine URINE SPECIMEN OBTAINED BY CLEAN CATCH PROCEDURE / Unknown Collection / Unknown 12/13/2017 8:37 PM CDT 12/13/2017 8:37 PM CDT Roderick Cintron MD LAB - URINE CHEMISTR Y ORDERABLES Performing Organization Address City/[facility]/ZIP Co de Phone Number [address] [phone] * CREATININE URINE RANDOM (12/13/2017 8:37 PM CDT) Creatinine Urine 40 Not Established mg/dL 12/13/2017 9:21 PM T [facility] Urine URINE SPECIMEN OBTAINED BY CLEAN CATCH PROCEDURE / Unknown Collection / Unknown 12/13/2017 8:37 PM CDT 12/13/2017 8:37 PM CDT Roderick Cintron MD LAB - URINE CHEMISTR Y ORDERABLES Performing Organization Address City/[facility]/ZIP Co de Phone Number [address] [phone] * (ABNORMAL) CBC W AUTO DIFFERENTIAL (12/13/2017 7:17 PM CDT) WBC 6.9 3.5 - 10.5 10 3/uL 12/13/2017 7:50 PM [facility] RBC 3.77(L) 3.90 - 5.00 10 6/uL 12/13/2017 7:50 PM [facility] Hemoglobin 11.1(L) 12.0 - 15.5 g/dL 12/13/2017 7:50 PM [facility] Hematocrit 33.4(L) 35.0 - 45.0 % 12/13/2017 7:50 PM [facility] MCV 88.6 81.0 - 97.0 fL 12/13/2017 7:50 PM [facility] MCH 29.4 28.0 - 34.0 pg 12/13/2017 7:50 PM [facility] MCHC 33.2 32.0 - 36.0 g/dL 12/13/2017 7:50 PM [facility] Platelet Count 223 150 - 400 10 3/uL 12/13/2017 7:50 PM [facility] RDW-SD 40.8 36.0 - 50.0 fL 12/13/2017 7:50 PM [facility] RDW-CV 12.7 11.2 - 14.8 % 12/13/2017 7:50 PM [facility] MPV 9.8 9.3 - 12.8 fL 12/13/2017 7:50 PM [facility] Neutrophils % 61.6 35.0 - 70.0 % 12/13/2017 7:50 PM [facility] Lymphocytes % 29.8 19.7 - 55.1 % 12/13/2017 7:50 PM [facility] Monocytes % 6.4 3.0 - 15.0 % 12/13/2017 7:50 PM [facility] Eosinophils % 1.9 0.0 - 6.0 % 12/13/2017 7:50 PM [facility] Basophil % 0.3 0.0 - 1.5 % 12/13/2017 7:50 PM [facility] Neutrophils Absolute 4.3 1.6 - 7.0 10 3/uL 12/13/2017 7:50 PM [facility] Lymphocyte Absolute 2.1 0.8 - 2.9 10 3/uL 12/13/2017 7:50 PM [facility] Monocytes Absolute 0.44 0.14 - 0.66 10 3/uL 12/13/2017 7:50 PM [facility] Eosinophils Absolute 0.13 0.00 - 0.22 10 3/uL 12/13/2017 7:50 PM [facility] Basophils Absolute 0.02 0.00 - 0.06 10 3/uL 12/13/2017 7:50 PM [facility] Immature Granulocytes % 0.1 0.0 - 1.0 % 12/13/2017 7:50 PM [facility] Blood BLOOD SPECIMEN / Unknown Lab Venipuncture / Unknown 12/13/2017 7:17 PM CDT 12/13/2017 7:45 PM CDT Roderick Cintron MD LAB - HEMATOLOGY ORD ERABLES [facility] [address] [phone] * (ABNORMAL) COMPREHENSIVE METABOLIC PANEL (12/13/2017 7:17 PM CDT) BUN 15 7 - 26 mg/dL 12/13/2017 8:07 PM [facility] Creatinine 1.6(H) 0.6 - 1.2 mg/dL 12/13/2017 8:07 PM [facility] Sodium 141 136 - 145 mmol/L 12/13/2017 8:07 PM [facility] Potassium 3.4(L) 3.5 - 4.5 mmol/L 12/13/2017 8:07 PM [facility] Chloride 110(H) 98 - 107 mmol/L 12/13/2017 8:07 PM [facility] CO2 20(L) 22 - 29 mmol/L 12/13/2017 8:07 PM [facility] Glucose 105 70 - 115 mg/dL 12/13/2017 8:07 PM [facility] Calcium 9.1 8.4 - 10.2 mg/dL 12/13/2017 8:07 PM [facility] Protein Total 6.4 6.0 - 8.3 g/dL 12/13/2017 8:07 PM [facility] Albumin 2.8(L) 3.4 - 5.0 g/dL 12/13/2017 8:07 PM [facility] Bilirubin Total 0.3 0.2 - 1.2 mg/dL 12/13/2017 8:07 PM [facility] Alkaline Phosphatase 47 40 - 150 Units/L 12/13/2017 8:07 PM [facility] ALT 7 0 - 55 Units/L 12/13/2017 8:07 PM [facility] AST 11 5 - 34 Units/L 12/13/2017 8:07 PM [facility] Anion Gap 14 8 - 18 12/13/2017 8:07 PM [facility] BUN/Creatinine Ratio 9 7 - 23 12/13/2017 8:07 PM CDT [facility] Osmolality Calculated 293 270 - 300 mOsm/kg 12/13/2017 8:07 PM CDT [facility] Albumin/Globulin Ratio 0.8(L) 1.1 - 2.3 12/13/2017 8:07 PM CDT [facility] eGFR 39(L) >60 mL/min/1.7 3 m2 12/13/2017 8:07 PM CDT [facility] Blood BLOOD SPECIMEN / Unknown Lab Venipuncture / Unknown 12/13/2017 7:17 PM CDT 12/13/2017 7:45 PM CDT Roderick Cintron MD LAB - CHEMISTRY [place] [facility]PTA [address] [phone] * PHOSPHORUS BLOOD (12/13/2017 7:17 PM CDT) Phosphorus 3.5 2.3 - 4.7 mg/dL 12/13/2017 8:05 PM CDT [facility] Blood BLOOD SPECIMEN / Unknown Lab Venipuncture / Unknown 12/13/2017 7:17 PM CDT 12/13/2017 7:45 PM CDT Roderick Cintron MD LAB - CHEMISTRY [place] GUPTA Performing Organization Address City/[facility]/ZIP Co de Phone Number [address] [phone] * MAGNESIUM BLOOD (12/13/2017 7:17 PM CDT) Magnesium 1.8 1.6 - 2.6 mg/dL 12/13/2017 8:07 PM CDT [facility] Blood BLOOD SPECIMEN / Unknown Lab Venipuncture / Unknown 12/13/2017 7:17 PM CDT 12/13/2017 7:45 PM CDT Roderick Cintron MD LAB - [place] [address], [place] [phone] * LACTIC ACID BLOOD (12/13/2017 7:17 PM CDT) [facility] Lactic Acid-Stat 1.5 0.5 - 2.2 mmol/L 12/13/2017 8:03 PM CDT [facility] Blood BLOOD SPECIMEN / Unknown Lab Venipuncture / Unknown 12/13/2017 7:17 PM CDT 12/13/2017 7:45 PM CDT Roderick Cintron MD LAB - [place] [address], [place] [phone] * CK BLOOD (12/13/2017 7:17 PM CDT) [facility] CK Total 52 30 - 200 Units/L 12/13/2017 8:07 PM CDT [facility] Blood BLOOD SPECIMEN / Unknown Lab Venipuncture / Unknown 12/13/2017 7:17 PM CDT 12/13/2017 7:45 PM CDT Roderick Cintron MD LAB - [place] [address], [place] [phone] * CULTURE BLOOD (12/13/2017 7:16 PM CDT) [facility] Culture No growth day 5 [place] 12/18/2017 11:31 PM CDT [facility] [email or web address] MICROBIOLOGY Blood PERIPHERAL BLOOD / Unknown Lab Venipuncture / Unknown 12/13/2017 7:16 PM CDT 12/13/2017 7:45 PM CDT Roderick Cintron MD LAB - MICROBIOLOGY O RDERABLES [facility] MICROBIOLOGY [address] [place] [address], [place] [phone] * (ABNORMAL) URINALYSIS W/MICROSCOPIC NO CULTURE (12/13/2017 6:[address] [facility]) Color UA Yellow Straw, Yellow, Colorless, Light Yellow 12/13/2017 6:33 PM [facility] Clarity UA Clear Clear 12/13/2017 6:33 PM [facility] Specific [place] UA 1.006 1.001 - 1.030 12/13/2017 6:33 PM [facility] pH UA 5.5 5.0 - 8.0 12/13/2017 6:33 PM [facility] Protein UA Negative <=20 mg/dL 12/13/2017 6:33 PM [facility] Glucose UA Negative Negative mg/dL 12/13/2017 6:33 PM [facility] Ketone UA Negative Negative mg/dL 12/13/2017 6:33 PM [facility] Bilirubin UA Negative Negative mg/dL 12/13/2017 6:33 PM [facility] Blood UA Moderate(A) Negative 12/13/2017 6:33 PM [facility] Nitrite UA Negative Negative 12/13/2017 6:33 PM [facility] Leukocyte Esterase Negative Negative 12/13/2017 6:33 PM [facility] Urobilinogen UA <2.0 <2.0 mg/dL 8 6:33 PM [facility] RBC UA 2 0 - 8 /HPF 12/13/2017 6:33 PM [facility] WBC UA 1 0 - 2 /HPF 12/13/2017 6:33 PM [facility] Bacteria UA Rare Rare, Occasional, None /HPF 12/13/2017 6:33 PM [facility] Squamous Epithelial Cells UA <1 0 - 1 /HPF 12/13/2017 6:33 PM [facility] Mucus UA Rare(A) None /LPF 12/13/2017 6:33 PM [facility] Urine URINE SPECIMEN OBTAINED BY CLEAN CATCH PROCEDURE / Unknown Collection / Unknown 12/13/2017 6:24 PM CDT 12/13/2017 6:28 PM T Roderick Cintron MD LAB - URINALYSIS ORD ERABLES [facility] [address] [place] [address], [place] [phone] * CULTURE URINE (12/13/2017 6:24 PM CDT) Culture Urine No growth (<100 CFU/mL) [place] 12/15/2017 6:23 AM CDT [facility] MICROBIOLOGY Urine URINE SPECIMEN OBTAINED BY CLEAN CATCH PROCEDURE / Unknown Collection / Unknown 12/13/2017 6:24 PM CDT 12/13/2017 6:28 PM CDT Roderick Cintron MD LAB - MICROBIOLOGY O RDERABLES Performing Organization Address City/[facility]/ZIP Co de Phone Number [facility] MICROBIOLOGY [address] [place], [place] [address], [place] [phone] Care Teams Network Technician Relationship Specialty Start Date End Date Ryan Metz MD [address] [place] [id number] PCP - General 05/15/17
--- OUTSIDE RECORDS SUMMARY | 2024-05-27 23:14 | XMS_ITS | Encounter Summary ---
Author Organization [facility] Address [address] [place] [address] Care Team Providers Care Window Glazier Name Role Phone Petey York MD Primary Care Provider [phone] Catalino Koch MD Unavailable Bhavna VenturaC Primary Care Provider [phone] Encounter Details Date Type Department Care Team (Late st Contact Info) Description 10/13/2023 [employer] Message Enc [facility] Medical Group Family & Internal Medicine [facility] [id number] [place] [phone] Rebekah Riley PA [address] [place] [address] Antibiotics/yeast Social History Tobacco Use Types [...] on filedocumented in this encounter Care Teams Window Glazier Relationship Specialty Start Date End Date Petey York MD [facility] [place] [address] PCP - General FAMILY PRACTICE 01/17/23 05/26/24 Bhavna Ventura PA-C [address] [place], [place] [address] [place] [address] PCP - General PHYSICIAN MANAGER [employer] 05/27/24 Catalino Koch MD [address] [facility] [address] [place] [address] GENERAL SURGERY 05/27/24 documented as of this encounter
--- OUTSIDE RECORDS SUMMARY | 2024-05-27 23:14 | XMS_ITS ---
Author Organization [facility] Address [address] [place] [phone] Care Team Providers Care Stock Taker Name Role Phone Uziel Teofilo Jones MD Unavailable [phone] Arian Eaton MD Unavailable [phone] Nathan Fish MD Unavailable [phone] Shara Monreal MD Unavailable [phone] Malorie Malcolm NP Unavailable Petey York MD Primary Care Provider [phone] Active Problems Problem Noted Date Diagnosed Date Breast pain, right 06/27/2022 Invasive ductal carcinoma of breast, female, rig ht 07/30/2021 Encounter for fitting and adjustment of vascular catheter 07/30/2021 Overview (07/30/2021): Added automatically from request for surgery [id number] Malignant neoplasm of upper- inner quadrant of [...] (10/22/2019): Added automatically from request for surgery [id number] Pelvic and perineal pain 10/22/2019 Overview (10/22/2019): Added automatically from request for surgery [id number] Persistent proteinuria 10/25/2018 Recurrent UTI 10/25/2018 Asymptomatic [...] from the original note were not included. [facility] [phone] This Survivorship Care Plan is a cancer [...] Information: Primary Care Physician Petey York MD [phone] Keanu Fish [phone] Arian Eaton [phone] Teofilo Triplett [phone] Plastic Surgeon Other Providers Treatment Summary Cancer [...] Stage IB (cT1c, cN0, cM0, G3, ER-, HI-, HER2-) - Signed by Arian Eaton MD on 07/30/2021 - Pathologic stage from 02/10/2022: No Stage Recommended (ypT0, pN0(sn), cM0, GX, ER-, HI-, HER2-) -Signed by Arian Eaton MD on [...] equivalent: 238.218 mg/m2 (480 mg) Research Studies [id number] in REsults of Immune Checkpoint Inhibitor Tx (DiRECT):Prospective Study of Cancer Survivors Tx'd w anti-PD-1/antiPD-L1 Immunotherapy in a Community Oncology Setting Status On study Active Start Date 08/13/21 NCT [id number] Persistent symptoms or side effects that have [...] breast cancer could run in the family: [employer] heritage History of ovarian cancer in the [...] monitoring Every 3 months while on Herceptin 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 Have an active lifestyle, strive [...] Cancer.Net--http://www.cancer.net/survivorship Livestrong--http://www.livestrong.org/ Livestrong Care Plan--http://www.livestrongcareplan.org/ National Cancer [place]--http://www.cancer.gov/cancertopics/factsheet/therapy/followup National Cancer [place] Facing Forward: Life After Cancer Treatment--http://www.cancer.gov/cancertopics/coping/qnqt-wemqv-fspgqazfy National Coalition for Cancer Survivorship--http://www.canceradvocacy.org/ National Comprehensive Cancer Network-http://www.nccn.org/patients/resources NCCS Cancer Survival Toolbox-- http://www.canceradvocacy.org/toolbox/ CancerCare--http://www.cancercare.org/ Healthcare.gov (insurance marketplace)-- https://www.healthcare.gov/ Cancer and Careers--http://www.cancerandcareers.org/en [place] Cancer Society:The Survivorship Center--http://www.cancer.org/survivorshipcenter Cancer Support Community- http://www.cancersupportcommunity.org/ Cancer Rehabilitation--www.[facility]/rehab Resolved Problems Problem Noted Date Diagnosed Date Resolved Date Post-operative state 02/22/2022 024
--- OUTSIDE RECORDS SUMMARY | 2024-05-27 23:14 | XMS_ITS | Referral Summary ---
Author Organization [facility] Address [address] [place] [id number] Care Team Providers Care Manager Scheduling Name Role Phone Uziel Teofilo Jones MD Unavailable Arian Eaton MD Unavailable [phone] Nathan Fish MD Unavailable [phone] Shara Monreal MD Unavailable Malorie Malcolm NP Unavailable Petey York MD Primary Care Provider [phone] Encounters Date Type Department Care Team Description 05/06/2024 Orders Only [facility] [address] [place] [phone] Nathan Fish MD Invasive ductal carcinoma of breast, female, right (HCC) (Primary Dx); Malignant 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, estrogen receptor negative (HCC) 05/06/2024 Documentation [facility] [address] [place] [phone] Inessa Heart RC 05/06/2024 2:00 PM [facility] Office Visit [facility] [address] [place] [phone] Arian Eaton MD Malignant 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, estrogen receptor negative (HCC) (Primary Dx) 05/06/2024 2:45 PM [facility] Office Visit [facility] [address] [place] [address] [address] [place] [phone] Nathan Fish MD Malignant 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, estrogen receptor negative (HCC) (Primary Dx) 02/29/2024 Telephone [facility] [address] [place] [address] Jocelin Jones RN Follow-Up Call 24-48 Hours; Test Results 02/28/2024 10:30 AM [facility] - 02/28/2024 11:59 PM [facility] Hospital Encounter [facility] [address] [place] [address] Abnormal MRI, breast Discharge Disposition: Discharge to home or self care 02/28/2024 7:24 AM [facility] - 02/28/2024 11:59 PM [facility] Hospital Encounter [facility] [address] [place] [address] Abnormal MRI, breast Discharge Disposition: [...] TAKE 1 TABLET(75 MCG) BY MOUTH ASSISTANT MEDIA BUYER BEFORE BREAKFAST 90 tablet 1 11/03/19 24 [...] (07/30/2021): Added automatically from request for surgery [id number] Malignant neoplasm 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, estrogen receptor negative 07/23/2021 Cancer Staging:Clinical stage from 07/20/2021:Stage IB(cT1c, cN0, cM0, G3, ER-, AZ-, HER2-) - Signed by Arian Eaton MD on 07/30/2021 Pathologic stage from 02/10/2022:No Stage Recommended(ypT0, pN0(sn), cM0, GX, ER- , AZ-, HER2-) - Signed by Arian Eaton MD on 03/09/2022 Endometriosis 10/22/2019 Overview (10/22/2019): Added automatically from request for surgery [id number] Pelvic and perineal pain 10/22/2019 Overview (10/22/2019): Added automatically from request for surgery [id number] Persistent proteinuria 10/25/2018 Recurrent UTI 10/25/2018 Asymptomatic [...] on file Legal Sex Female 12:06 AM [facility] Gender Identity Not on file Sexual Orientation Not on file Occupation Industry Job Start Date Job End Date [employer] Not on file Not on file Not on file Last Filed Vital Signs Vital Sign Reading Time Taken Comments Blood Pressure 126/82 05/06/2024 1:56 PM [facility] Pulse 98 05/06/2024 1:56 PM [facility] Temperature 36.1 C (97 F) 05/06/2024 2:30 PM [facility] Respiratory Rate 18 05/06/2024 1:56 PM [facility] Oxygen Saturation 100% 05/06/2024 1:56 PM [facility] Inhaled Oxygen Concentration - - Weight 95.7 kg (211 lb) 05/06/2024 2:30 PM [facility] Height 162.6 cm (5' 4 ) 05/06/2024 2:30 PM [facility] Body Mass Index 36.22 05/06/2024 2:30 PM [facility] Plan of Treatment Not on file Medical Devices Implanted Type Area Line Mechanic Device Identifier Shelf Expiration Date Model / Serial / Lot Neuronex Magseed 18ga 7cm Marker Breast Biopsy [id number] Right: Breast LM[employer] [id number] 12/10/2025 [id number] / / [id number] [employer] [facility] Trimark Second Marker Breast Biopsy Disposable Trimark Td 2s 13-Mr - [id number] Implanted:Qty: 1 on 02/28/2024 by Consuelo Altman MD at [facility] Right: Breast [employer] [id number] 06/13/2025 TRIMARK TD 2S 13-MR / / [id number] Explanted Type Area Line Mechanic Device Identifier Shelf Expiration Date Model / Serial / Lot [employer] Powerport Isp Mri Airguard 8fr 1 Lumen Attachable Catheter Open Latex Free [id number] - [id number] Implanted:Qty: 1 on 08/06/2021 by Koffi Brandon MD at [facility] Explanted:Qty: 1 Right: Chest [employer] 09/09/2022 [id number] / / [id number] Procedures Procedure Name Priority Date/Time Associated Diagnosis Comments MAMM POST CLIP PLACEMENT RIGHT Schedule Routine, Read Routine (OP Routine) 02/28/2024 10:50 AM [facility] Abnormal MRI, breast MRI GUIDED BREAST BIOPSY RIGHT Schedule Routine, Read Routine (OP Routine) 02/28/2024 10:28 AM [facility] Abnormal MRI, breast SURGICAL PATHOLOGY Routine 02/28/2024 10:01 AM [facility] Abnormal MRI, breast PAP AND HPV, REFLEX TO HPV GENOTYPES Routine 09/18/2023 4:32 AM CDT Screening for cervical cancer Screening for human papillomavirus (HPV) HEPATITIS C ANTIBODY Routine 07/11/2022 1:00 PM CDT from Last 3 Months or Most Recently Relevant to Health Maintenance Results * Mammo Post Clip Placement Right (02/28/2024 10:50 AM [facility]) Anatomical Region Laterality Modality Breast Right Mammography 02/28/2024 11:3 1 AM [facility] Addenda Addendum by Consuelo Altman MD on 02/29/2024 4:10 PM [facility] Pathology report for MRI guided core needle [...] patient by the nursing staff of the [facility]. Electronically signed by: Consuelo Altman M.D. Impressions 02/28/2024 11:31 AM [facility] Successful MRI guided biopsy of enhancement in the lumpectomy site of the right breast. Pathology report is pending. ASSESSMENT: Post-procedure mammogram for marker placement. Electronically signed by: Consuelo Altman M.D. Narrative 02/28/2024 11:31 AM [facility] MRI GUIDED CORE NEEDLE BIOPSY RIGHT BREAST, [...] made with a #11 blade. A 9-gauge [facility] vacuum-assisted biopsy needle was advanced to the [...] tolerated the procedure well, and left the [facility] in good condition, without evidence of immediate complication. us Nathan Fish MD IMG MAMMO PROCEDURES Edite d Result - Final * MRI Guided Breast Biopsy Right (02/28/2024 10:28 AM [facility]) Anatomical Region Laterality Modality Breast Right Magnetic Resonan ce 02/28/2024 11:3 1 AM [facility] Addenda Addendum by Consuelo Altman MD on 02/29/2024 4:10 PM [facility] Pathology report for MRI guided core needle [...] patient by the nursing staff of the [facility]. Electronically signed by: Consuelo Altman M.D. Impressions 02/28/2024 11:31 AM [facility] Successful MRI guided biopsy of enhancement in the lumpectomy site of the right breast. Pathology report is pending. ASSESSMENT: Post-procedure mammogram for marker placement. Electronically signed by: Consuelo Altman M.D. Narrative 02/28/2024 11:31 AM [facility] MRI GUIDED CORE NEEDLE BIOPSY RIGHT BREAST, [...] made with a #11 blade. A 9-gauge [facility] vacuum-assisted biopsy needle was advanced to the [...] tolerated the procedure well, and left the [facility] in good condition, without evidence of immediate complication. us Nathan Fish MD [facility] MRI PROCEDURES Edited Result - Final * Surgical pathology (02/28/2024 10:01 AM [facility]) Tissue (Breast biopsy, needle core) 02/28/2024 10:01 AM [facility] Narrative PATHOLOGY [facility] - 02/29/2024 12:16 PM [facility] [address] [address] Tele: Jocelin Browne MD - It Infrastructure Engineer Note to Patients: This report may contain [...] PATHOLOGY REPORT Patient Name: LATRICE TATE Address: [address] [place] [address] Gender: F : 1990 (Age: 34) Service: Location: , Hospital #: [id number] Patient Type: [facility] ANCILLARY Taken: 02/28/2024 Received 02/28/2024 Reported: 02/29/2024 Physician(s): [facility] - Dr. Altman DIAGNOSIS: Breast, right breast abnormal enhancement, needle biopsy: - Hyalinized fibroadenoma - Focal fat necrosis [facility]/02/29/2024 12:16 Examining Pathologist: Mildred Gonzales [...] in cassettes labeled A1-A3. [facility] MICROSCOPIC DESCRIPTION: Microscopic examination supports the above captioned diagnosis. There is no atypical hyperplasia or malignancy. Clerical Data Follows A; [id number] REPORT IMAGES AND/OR SCANNED DOCUMENTS ONLY VIEWABLE IN PDF FORMAT The immunohistochemical test(s) cited in this report, if any, was developed and its performance characteristics determined by [facility]. It has not been cleared or approved by the U.S. Food and Drug Administration. The FDA has determined that such clearance or approval is not necessary. This test is used for clinical purposes. It should not be regarded as investigational or for research. [facility] is certified under the Clinical Laboratory [...] part or completely in the following laboratories: [facility], [address], [place] [address] [facility], [address], [place] [address]. us Nathan Fish MD LAB PATHOLOGY ORDERABLES F inal Result PATHOLOGY [facility] Laboratory Receiving [address] [place], [place] [id number] * (ABNORMAL) Pap and HPV, reflex to [...] 09/20/2023 2:11 PM CDT Performed at: - [address] [id number] Commercial Baking Teacher: Yumiko Hubbard MD, Phone: [phone] Performed at: 02 - [address] [id number] Commercial Baking Teacher: Yumiko Hubbard MD, Phone: [phone] Specimen Comment: Source.............Cervix;Endocervix Specimen Comment: No. of containers..01 ThinPrep Vial Shara Monreal MD LAB CYTOLOGY ORDERABLES F inal Result Performing Organization Address City/[facility]/ZIP Co de Phone Number [facility] - 01 LAB [place] 02 * Hepatitis C antibody (07/11/2022 1:00 PM CDT) Hep C Ab Nonreactive Nonreactive [facility] Comment: Interpretive Data Nonreactive: Antibodies to HCV [...] L ORDERABLES Edited Result - Final [facility] [address] [place] [address] from Last 3 Months or Most Recently Relevant to Health Maintenance Insurance HMO HMO O Care Teams Manager Scheduling Relationship Specialty Start Date End Date Petey York MD [address] [place] [address] PCP - General Family Medicine 03/01/22 Teofilo Triplett MD [address] [place] [address] Medical Oncologist/Advertising Rep Hematology and Oncology 07/22/21 Arian Eaton MD [address] [place] [address] Consulting Physician Radiation Oncology 07/22/21 Nathan Fish MD [address] [facility] [address] [place] [address] Consulting Physician Surgical Oncology 07/28/21 Shara Monreal MD [address] [place] [address] Consulting Physician Obstetrics and Gynecology 07/28/21 Malorie Malcolm NP [address] [place] [address] Nurse Practitioner Surgery 12/22/21
--- OUTSIDE RECORDS SUMMARY | 2024-05-27 23:14 | XMS_ITS | Encounter Summary ---
Author Organization [facility] Address [facility] [place] [address] Care Team Providers Care Welder Fitter Apprentice Name Role Phone Catalino Koch MD Unavailable Bhavna Ventrua PA-C Primary Care Provider [phone] Encounter Details Date Type Department Care Team [...] on filedocumented in this encounter Care Teams Welder Fitter Apprentice Relationship Specialty Start Date End Date Bhavna Ventura PA-C [address] [place] [address] [address] [place] [address] PCP - General PHYSICIAN TRANSPORT AIRCREWMAN 05/27/24 Catalino Koch MD [address] [place] [address] [address] [place] [address] GENERAL SURGERY 05/27/24 documented as of this encounter
--- OUTSIDE RECORDS SUMMARY | 2024-05-27 23:14 | XMS_ITS | Clinical Summary ---
Author Organization [facility] Address [address] [place] [address] Care Team Providers Care Blood Bank Business Manager Name Role Phone Catalino Koch MD Unavailable Bhavna Ventura PA-C Primary Care Provider [phone] Allergies Active Allergy Reactions Criticality Noted Date [...] tablet TAKE 1 TABLET(75 MCG) BY MOUTH SOUS CHEF KITCHEN MANAGER BEFORE BREAKFAST 3 Active montelukast (SINGULAIR) 10 [...] 08/16/2022 Assessment & Plan (04/25/2023 10:27 AM STOCK HANDLER FLOORPERSON): Recommendation at this time is to continue with her home exercise program for the ankle. Patient will be seen back as needed. Assessment & Plan (01/31/2023 6:49 PM STOCK HANDLER FLOORPERSON): We got her set up to go [...] CDT - 05/27/2024 7:23 PM CDT Emergency [facility] Emergency Room [address] [place] [address] Tamela Barreto MD Abdominal Pain Discharge Disposition: [...] (#1) 2023 01/05/2012, 01/22/2004, 01/06/2003 PHQ-2 (Physician [place]) 03/13/2024 10/11/2023 Cervical Cancer Screening Pap Smear [...] TEST NEGATIVE NEGATIVE 05/27/2024 3:42 PM CDT [facility] Comment: VERY DILUTE URINE SPECIMENS MAY NOT CONTAIN DENTAL NURSE LEVELS OF HCG. IF IS STILL SUSPECTED, A SERUM HCG TEST IS RECOMMENDED. URINE SPECIMEN FROM URETHRA / Unknown 05/27/2024 3:30 PM CDT us Tamela Barreto MD URINE ORDERABLES Final Result Performing Organization Address City/State/[facility] Co de Phone Number [facility] [address] [place] [address], [place] [phone] * URINALYSIS, AUTO, COMPLETE (05/27/2024 3:30 PM CDT) COLOR (U) YELLOW 05/27/2024 3:45 PM CDT [facility] TRANSPARENCY CLEAR 05/27/2024 3:45 PM CDT [facility] SPECIFIC GRAVITY (U) 1.015 1.000 - 1.030 05/27/2024 3:45 PM CDT [facility] U PH 7.0 5.0 - 9.0 05/27/2024 3:45 PM CDT [facility] LEUKOCYTES (U) NEGATIVE NEGATIVE 05/27/2024 3:45 PM CDT [facility] NITRITES NEGATIVE NEGATIVE 05/27/2024 3:45 PM CDT [facility] PROTEIN RANDOM (U) NEGATIVE NEGATIVE 05/27/2024 3:45 PM CDT [facility] GLUCOSE (U) NEGATIVE NEGATIVE 05/27/2024 3:45 PM CDT [facility] KETONES MG/DL (U) NEGATIVE NEGATIVE 05/27/2024 3:45 PM CDT [facility] BILIRUBIN (U) NEGATIVE NEGATIVE 05/27/2024 3:45 PM CDT [facility] BLOOD (U) NEGATIVE NEGATIVE 05/27/2024 3:45 PM CDT [facility] WBC/HPF NONE SEEN 0 - 5 /HPF 05/27/2024 3:45 PM CDT [facility] RBC/HPF NONE SEEN 0 - 5 /HPF 05/27/2024 3:45 PM CDT [facility] EPI/HPF FEW /HPF 05/27/2024 3:45 PM CDT [facility] URINE ARDON FEW 05/27/2024 3:45 PM CDT [facility] Comment:MUCOUS URINE SPECIMEN OBTAINED BY CLEAN CATCH PROCEDURE / Unknown 05/27/2024 3:30 PM CDT us Tamela Barreto MD URINE ORDERABLES Final Result [facility] [address] [place] [address], [place] [phone] * PARTIAL THROMBOPLASTIN TIME,PTT (05/27/2024 2:38 PM CDT) PTT 35.5 27.0 - 36.8 SEC 05/27/2024 2:51 PM CDT [facility] 05/27/2024 2:38 PM CDT us Tamela Barreto MD LABORATORY Final Result Performing Organization Address [facility]/ZIP Co de Phone Number [facility] [address] [place] [address], [place] [phone] * (ABNORMAL) PROTIME/INR, VENOUS (05/27/2024 2:38 PM CDT) [facility] PROTIME 13.2(H) 9.1 - 12.4 SEC 05/27/2024 2:51 PM CDT [facility] INR 1.1 05/27/2024 2:51 PM CDT [facility] Comment: Recommend INR ranges for Oral Anticoagulant Therapy: Mechanical Cardiac Values 2.5-3.5 All others indication 2.0-3.0 05/27/2024 2:38 PM CDT us Tamela Barreto MD LABORATORY Final Result Performing Organization Address [facility] Co de Phone Number [facility] [address] [place] [address], [place] [phone] * (ABNORMAL) COMPREHENSIVE METABOLIC PANEL (05/27/2024 2:38 PM CDT) Pathologist [facility] GLUCOSE 106(H) 70 - 99 MG/DL 05/27/2024 2:57 PM CDT [facility] BUN 12 7 - 18 MG/DL 05/27/2024 2:57 PM CDT [facility] CREATININE S/P/B 0.63 0.55 - 1.02 MG/DL 05/27/2024 2:57 PM CDT [facility] SODIUM S/P/B 139 136 - 145 MMOL/L 05/27/2024 2:57 PM T [facility] POTASSIUM S/P/B 3.7 3.5 - 5.1 MMOL/L 05/27/2024 2:57 PM CDT [facility] CHLORIDE S/P/B 104 100 - 108 MMOL/L 05/27/2024 2:57 PM T [facility] CO2 21.7 21 - 32 MMOL/L 05/27/2024 2:57 PM T [facility] CALCIUM S/P/B 9.6 8.5 - 10.1 MG/DL 05/27/2024 2:57 PM T [facility] BILIRUBIN TOTAL S/P/B 0.8 0.2 - 1.2 MG/DL 05/27/2024 2:57 PM T [facility] TOTAL PROTEIN S/P/B 7.4 6.4 - 8.2 G/DL 05/27/2024 2:57 PM T [facility] ALBUMIN S/P/B 3.8 3.4 - 5.0 G/DL 05/27/2024 2:57 PM T [facility] AST 48(H) 15 - 37 U/L 05/27/2024 2:57 PM T [facility] ALT 62(H) 14 - 55 U/L 05/27/2024 2:57 PM T [facility] ALKALINE PHOSPHATASE S/P/B 125 50 - 136 U/L 05/27/2024 2:57 PM T [facility] ANION GAP 13.3 5 - 15 MMOL/L 05/27/2024 2:57 PM T [facility] BUN CREATININE RATIO 19.0 6 - 26 05/27/2024 2:57 PM CDT [facility] A/G RATIO 1.1 1.0 - 2.0 RATIO 05/27/2024 2:57 PM CDT [facility] GFR ESTIMATE >90 >90 ML/MIN/1.7 3 M2 05/27/2024 2:57 PM CDT [facility] Comment: NOTE: eGFR is not calculated for patients <18 years of age. This is an estimated GFR calculation using the new CKD EPI creatinine equation without race and so does not require a correction factor for race. This estimated GFR should not be used for calculating drug doses. 05/27/2024 2:38 PM CDT us Tamela Barreto MD LABORATORY Final Result [facility] [address] [place] [address], * (ABNORMAL) CBC W/DIFF AUTOMATED (05/27/2024 2:38 PM CDT) WBC 8.63 4.4 - 11.0 x10'3/uL 05/27/2024 2:43 PM CDT [facility] RBC 4.30(L) 4.50 - 5.10 x10'6/uL 05/27/2024 2:43 PM CDT [facility] HGB 12.8 12.3 - 15.3 G/DL 05/27/2024 2:43 PM CDT [facility] HCT 38.4 35.9 - 44.6 % 05/27/2024 2:43 PM CDT [facility] MCV 89.3 80.0 - 96.0 FL 05/27/2024 2:43 PM CDT [facility] MCH 29.8 25.3 - 30.9 PG 05/27/2024 2:43 PM CDT [facility] MCHC 33.3 31.0 - 34.1 G/DL 05/27/2024 2:43 PM CDT [facility] RDW 12.5 12.4 - 15.1 % 05/27/2024 2:43 PM CDT [facility] PLT 361(H) 151 - 353 x10'3/uL 05/27/2024 2:43 PM CDT [facility] MPV 9.3(L) 9.6 - 12.0 FL 05/27/2024 2:43 PM CDT [facility] RBC MORPHOLOGY NORMAL 05/27/2024 2:43 PM CDT [facility] PLT MORPH. NORMAL 05/27/2024 2:43 PM CDT [facility] WBC MORPHOLOGY NORMAL 05/27/2024 2:43 PM CDT [facility] LYMPHOCYTES % 19.5 15.8 - 45.0 % 05/27/2024 2:43 PM CDT [facility] NEUTROPHILS % 66.3 42.1 - 71.9 % 05/27/2024 2:43 PM CDT [facility] MONOCYTES % 7.4 5.7 - 12.5 % 05/27/2024 2:43 PM CDT [facility] EOSINOPHILS 5.8(H) 0.0 - 5.6 % 05/27/2024 2:43 PM CDT [facility] BASOPHILS 0.7 0.0 - 1.3 % 05/27/2024 2:43 PM CDT [facility] ABS. NEUTROPHILS 5.72 1.40 - 6.00 x10'3/uL 05/27/2024 2:43 PM CDT [facility] IMMATURE GRANS % 0.3 0.0 - 0.5 % 05/27/2024 2:43 PM CDT [facility] ABS. LYMPHOCYTES 1.68 0.80 - 4.70 x10'3/uL 05/27/2024 2:43 PM CDT [facility] 05/27/2024 2:38 PM CDT us Tamela Barreto MD LABORATORY Final Result Performing Organization Address City/[facility]/ZIP Co de Phone Number [facility] [address] [place] [address], [place] [phone] * LIPASE (05/27/2024 2:38 PM CDT) LIPASE 29 16 - 77 UNITS/L 05/27/2024 2:57 PM CDT [facility] 05/27/2024 2:38 PM CDT us Tamela Barreto MD LABORATORY Final Result Performing Organization Address [facility] Co de Phone Number [facility] [address] [place] [address], [place] [phone] from Last 3 Mon[place] [address] Care Teams Blood Bank Business Manager Relationship Specialty Start Date End Date Bhavna Ventura PA-C [address] [place], [place] [address] [place] [address] PCP - General PHYSICIAN COUNTER PROFESSIONAL 05/27/24 Catalino Koch MD [address] [facility] [address] [address] GENERAL SURGERY 05/27/24
--- NOTE | 2024-05-27 23:15 | PC.NURSE ---
Bedside test done at [place]. Negative.
[2024-05-27 23:28] LABS: Basophils Absolute Auto 0.1 K/mm3 (0.0-0.1); Basophils Percent Auto 0.7 % (0.2-1.2); Eosinophils Absolute Auto 0.6 K/mm3 (0-0.3); Eosinophils Percent Auto 6.4 % (0-4.4); Hematocrit 36.4 % (37.0-47.0); Immature Granulocyte Absolute 0.02 K/mm3 (0.00-0.031); Immature Granulocyte Percent A 0.2 % (0-0.5); Lymphocytes Absolute Auto 2.54 K/mm3 (0.9-3.2); Lymphocytes Percent Auto 29.3 % (18.3-44.2); Mean Corpuscular Hemoglobin 29.4 pg (26-34); Mean Corpuscular Volume 89.2 fl (80-100); Mean Platelet Volume 9.3 fl (7.4-10.4); Monocytes Absolute Auto 0.7 K/mm3 (0.1-0.6); Monocytes Percent Auto 8.1 % (2.6-8.5); Neutrophils Absolute Auto 4.8 K/mm3 (1.3-6.7); Neutrophils Percent Auto 55.3 % (45.5-73.1); Platelet Count Result 340 k/mm3 (150-375); Red Blood Count 4.08 M/mm3 (4.2-5.4); Red Cell Distribution Width 12.3 % (11.5-14.5); White Blood Count 8.7 K/mm3 (4.5-10.0)
[2024-05-27] MEDS: HYDROmorphone HCL INJ (*CRX) 1 MG/ML SYR IV PUSH (23:37)
[2024-05-27 23:39] LABS: Alanine Aminotransferase 59 U/L (6-35); Alkaline Phosphatase 108 U/L (38-126); Anion Gap 13 mmol/L (4-12); Aspartate Amino Transferase 48 U/L (14-36); Bilirubin,Total 0.9 mg/dL (0.2-1.3); Blood Urea Nitrogen 10 mg/dL (7-17); Calcium 9.1 mg/dL (8.4-10.2); Carbon Dioxide 23 mmol/L (22-30); Chloride 106 mmol/L (98-107); Estimated CRCL calculation 125 ml/min; Estimated Glomerular Filt Rate > 60; Glucose 87 mg/dL (65-110); Potassium 3.2 mmol/L (3.4-5.0); Sodium 142 mmol/L (137-145)
[2024-05-27] MEDS: PANTOPRAZOLE 40 MG TABLET PO (23:51)
[2024-05-27] MEDS: SODIUM CHLORIDE 0.9% IV 1,000 ML 100 ML IV CONT (23:51)
[2024-05-27] MEDS: PIPERACILLN/TAZ 3.375GM/NS50ML 3.375 GM/50 ML BAG IVPB (23:52)
[2024-05-28] MEDS: HYDROmorphone HCL INJ (*CRX) 1 MG/ML SYR IV PUSH ×6 (01:31→22:36)
[2024-05-28] MEDS: PIPERACILLN/TAZ 3.375GM/NS50ML 3.375 GM/50 ML BAG IVPB ×4 (04:39→22:05)
[2024-05-28 05:40] VITALS: BP 119/66; PULSE 115; RESP 18; TEMP 36.2; O2SAT 97
[2024-05-28] MEDS: LINACLOTIDE 72 MCG CAPSULE PO (06:20)
[2024-05-28] MEDS: LEVOTHYROXINE SODIUM 75 MCG TABLET PO (06:20)
[2024-05-28] MEDS: PANTOPRAZOLE 40 MG TABLET PO ×2 (08:22→21:06)
[2024-05-28] MEDS: LORATADINE 10 MG TABLET PO (08:22)
[2024-05-28] MEDS: MONTELUKAST SODIUM 10 MG TABLET PO (08:22)
[2024-05-28 08:54] LABS: Hematocrit 34.1 % (37.0-47.0); Hemoglobin 11.1 g/dL (12.0-15.0); Mean Corpuscular HGB Conc 32.6 g/dl (32-36); Mean Corpuscular Hemoglobin 29.3 pg (26-34); Platelet Count Result 333 k/mm3 (150-375); Red Blood Count 3.79 M/mm3 (4.2-5.4); Red Cell Distribution Width 12.6 % (11.5-14.5); White Blood Count 6.8 K/mm3 (4.5-10.0)
[2024-05-28 09:05] LABS: Alanine Aminotransferase 96 U/L (6-35); Albumin Level 3.7 g/dL (3.5-5.1); Alkaline Phosphatase 110 U/L (38-126); Anion Gap 10 mmol/L (4-12); Aspartate Amino Transferase 90 U/L (14-36); Bilirubin,Total 0.9 mg/dL (0.2-1.3); Blood Urea Nitrogen 10 mg/dL (7-17); Calcium 8.8 mg/dL (8.4-10.2); Carbon Dioxide 23 mmol/L (22-30); Chloride 107 mmol/L (98-107); Estimated CRCL calculation 109 ml/min; Estimated Glomerular Filt Rate > 60; Glucose 98 mg/dL (65-110); Potassium 3.7 mmol/L (3.4-5.0); Sodium 140 mmol/L (137-145)
[2024-05-28] MEDS: ONDANSETRON INJ 4 MG/2 ML VIAL IV PUSH ×2 (09:35→17:58)
--- NOTE | 2024-05-28 10:05 | P.CONIM_ITS ---
Assessment and Plan Assessment and plan (1) Dyslipidemia: Code(s): E78.5 - Hyperlipidemia, unspecified Status: Acute (2) Acute acalculous cholecystitis: Code(s): K81.0 - Acute cholecystitis Status: Acute (3) Acquired hypothyroidism: Code(s): E03.9 - Hypothyroidism, unspecified Status: Acute (4) Anxiety: Code(s): F41.9 - Anxiety disorder, unspecified Status: Acute (5) GERD (gastroesophageal reflux disease): Code(s): K21.9 - Gastro-esophageal reflux disease without esophagitis Status: Acute Plan Acute acalculous cholecystitis Status post cholecystectomy Patient is on Zosyn now patient afebrile, white blood cell within normal limit Patient still has right upper quadrant pain Asthma Stable Continue Singulair 10 mg daily p.o. Albuterol nebulizer q.4 hours p.r.n. Provide incentive spirometry Patient is on room air, no O2 desaturation Acquired hypothyroidism Continue Synthroid 75 mcg daily p.o. GERD Continue omeprazole 40 mg daily p.o. Anemia mild anemia, no obvious bleeding Thank you for allowing us to participate in the care of the patient HPI Date of Consult Consult date: 05/28/24 Requesting Physician: Nova Lakhani MD Primary Care Provider: Bhavna Ventura PA-C Consult Narrative Narrative: Latrice Tate is a 34 year old female with history of asthma, GERD, hypothyroidism, anxiety admit hospital for elective cholecystectomy. Patient has been having right upper quadrant pain after eating recently. She had abdominal ultrasound showing no gallstones. A HIDA scan was then performed showing 1% ejection fraction of gallbladder signifying significant gallbladder dysfunction. Patient underwent cholecystectomy on May 24, patient was found to have acute acalculous cholecystitis. Medical team is request to assist medical management. Chronic patient is afebrile balance tachycardia, pulse ox 99-97 on room air, CBC unremarkable, is mild anemia 11.1. Chemistry unremarkable except elevated aminotransferase, AST 90, ALT 96 Review of Systems 2 Review of Systems: ROS negative except above PMFSH Past Medical History Medical History Vitamin B12 deficiency Biliary dyskinesia Nausea and vomiting Left sided abdominal pain Heartburn Dyslipidemia Breast lump Breast pain History of breast cancer Endometriosis determined by laparoscopy Abnormal breast biopsy Endometriosis Breast cancer right breast, medial position lumpectomy 02-10-2022, Dr Kiser Vitamin D deficiency Elevated cholesterol Pain of left calf Hematuria Triple negative breast cancer Surgical History Surgical History S/P laparoscopic cholecystectomy S/P myringotomy with insertion of tube Hx of myomectomy History of adenoidectomy History of breast biopsy History of tonsillectomy Social History Social History Smoking status: Never smoker Second hand tobacco smoke exposure: No Alcohol intake: never Drinks per week: 1 Alcohol use details: rarely Substance use: never Substance use type: does not use Do You Feel Safe in your Home?: Yes Lack of Transportation: No Lack of Food: Never True Current Housing: I Have Housing Concerned About Future Housing: No Difficulty Paying Gas/Electric Bills: No Difficulty Paying for Meds: No Currently Unemployed: No Education: High School Diploma/GED Difficulty w/ Childcare or Family Care: No Living arrangements: alone Occupation/Education: occupation Gender identity (if verbalized by the patient): Female Spiritual care concerns: No Meds Home Medications and Allergies Home Medications ?Medication ?Instructions ?Recorded ?Confirmed ?Type levothyroxine 75 mcg capsule 75 mcg PO DAILY #90 caps 05/30/23 05/27/24 Rx linaclotide 72 mcg capsule 72 mcg PO DAILY 1 month #30 caps 10/12/23 05/27/24 Rx (Linzess) alprazolam 0.25 mg tablet 0.25 mg PO DAILY PRN anxiety #30 01/08/24 05/27/24 Rx tabs bempedoic acid 180 mg tablet 180 mg PO DAILY #90 tabs 02/27/24 05/27/24 Rx (Nexletol) montelukast 10 mg tablet 10 mg PO DAILY #90 tabs 02/27/24 05/27/24 Rx (Singulair) omeprazole 40 mg capsule,delayed 40 mg PO DAILY 1 month #30 caps 03/08/24 05/27/24 Rx release cetirizine 10 mg tablet (24Hour 10 mg PO DAILY 05/27/24 05/27/24 History Allergy) epinephrine 0.3 mg/0.3 mL 0.3 ml IM [id number] PRN anaphylaxis 05/27/24 05/27/24 History injection, auto-injector (EpiPen) hydrocodone 5 mg-acetaminophen 325 1 - 2 tablet PO Q6H PRN pain #20 05/27/24 05/27/24 Rx mg tablet tabs Allergies Allergy/AdvReac Type Severity Reaction Status Date / Time carboplatin Allergy Severe Anaphylaxis Verified 05/27/24 20:31 sulfamethoxazole (From Allergy Unknown Unknown Verified 05/27/24 20:31 Sulfamethoxazole-Trimethoprim) trimethoprim (From Allergy Unknown Unknown Verified 05/27/24 20:31 Sulfamethoxazole-Trimethoprim) ciprofloxacin AdvReac Intermediate Diarrhea Verified 05/27/24 20:31 doxycycline AdvReac Intermediate Vomiting Verified 05/27/24 20:31 oxycodone (From Percocet) AdvReac Intermediate Vomiting Verified 05/27/24 20:31 [id number] Reductase AdvReac Intermediate Myalgias Verified 05/27/24 20:31 Inhibitor nitrofurantoin AdvReac Mild Rash Verified 05/27/24 20:31 Vital Signs Vital Signs - 24 hr 05/27/24 21:03 05/27/24 22:20 05/28/24 05:40 Temperature 97.9 F 97.2 F L Pulse Rate 113 H 115 H Respiratory Rate 20 18 Blood Pressure 122/74 119/66 Pulse Oximetry 99 97 Oxygen Delivery Room Air Exam 2 Narrative: GENERAL: Pleasant, in no acute distress. Well-nourished. - EYES: EOMI. Anicteric. - HENT: Moist mucous membranes. - LUNGS: Clear to auscultation bilateral ly, no wheezing, rhonchi, or rales. - CARDIOVASCULAR: Regular rate and rhyth m. No murmur. No JVD. - ABDOMEN: Soft, right upper quadrant ab dominal tender and non-distended. Surgical wound is dry and clean No palpable masses. - EXTREMITIES: No edema. Peripheral puls es 2+. Non-tender. - NEUROLOGIC: No focal neurological defi cits. CN II-XII grossly intact. - PSYCHIATRIC: Awake, Alert and oriented x 3. Appropriate mood and affect. - SKIN: No rashes or lesions. Warm. - LYMPH: No cervical lymphadenopathy. Results Labs 05/28/24 08:43 05/28/24 08:43 Labs: Short CBC 05/27/24 05/28/24 Range/Units 23:21 08:43 WBC 8.7 6.8 (4.5-10.0) K/mm3 Hgb 12.0 11.1 L (12.0-15.0) g/dL Hct 36.4 L 34.1 L (37.0-47.0) % Plt Count 340 333 (150-375) k/mm3 BMP 05/27/24 05/28/24 23:21 08:43 Sodium 142 140 Potassium 3.2 L 3.7 Chloride 106 107 Carbon Dioxide 23 23 BUN 10 10 Creatinine 0.63 L 0.73 Glucose 87 98 Calcium 9.1 8.8 Liver Function 05/27/24 05/28/24 Range/Units 23:21 08:43 Total Bilirubin 0.9 0.9 (0.2-1.3) mg/dL AST 48 H 90 H (14-36) U/L ALT 59 H 96 H (6-35) U/L Alkaline Phosphatase 108 110 (38-126) U/L Albumin 4.0 3.7 (3.5-5.1) g/dL
[2024-05-28] MEDS: SODIUM CHLORIDE 0.9% IV 1,000 ML 100 ML IV CONT (12:00)
--- NOTE | 2024-05-28 12:08 | PM.IMHP ---
H&P: HPI History of Present Illness Date/Time: 05/28/24 12:08 Chief Complaint: RUQ abdominal pain Narrative: This is a 34-year-old who underwent laparoscopic cholecystectomy on 05/24/[address] Koch for chronic acalculous cholecystitis. During surgery, she had profound bradycardia with a pneumoperitoneum of 15 mmHg, which was addressed by anesthesiology and she was stabilized without dropping her blood pressure. She was then able to tolerate a lower pneumoperitoneum and surgery was successfully completed without any other complications. She was discharged home the same day of surgery. She reports that when she got home from the hospital, she was having RUQ abdominal pain. She described the pain as sharp and becomes sever when she takes a deep breath, lies flat, or bends/moves to get out of bed. She has not been able to walk standing up. She had to stay bent over to walk to the bathroom at home. She initially had some mild nausea the day of surgery, which subsided. She has not had any vomiting. She has only ate solid food on a few occasions over the past few days, but states that eating did not seem to aggravate her pain. She reports poor appetite and not eating much due to her lack of appetite. She was also feeling like she could not completely empty her bladder. She felt like it was due to her abdominal pain and not wanting to strain when urinating. She was avoiding liquids due to her difficulty with urinating as well. She denies fever, chills, chest pain, shortness of breath, leg swelling, calf pain, drainage from her incisions, or any other additional complaints. She tried to call our office over the weekend and tried to take two of her Allouez pills for the pain, but felt this made her more groggy. Therefore, she stopped taking the higher dose. Due to her persistent abdominal pain, she came into [facility] ER for evaluation. She refused a CT scan at that facility and was transferred to [facility] for surgical evaluation. She agreed to have a CT scan once admitted to our facility. CT scan of the abdomen/pelvis showed changes of a cholecystectomy with probable expected postoperative changes about the gallbladder fossa, with no abnormal fluid collection or abscess. No other acute intraabdominal findings. Labs showed a normal WBC count, LFTs essentially normal with mildly elevated AST and ALT. Total bilirubin normal. Potassium 3.2. She had a Echevarria catheter placed for urinary retention. She is currently taking Dilaudid IV for her abdominal pain. She also reports that her pain was so severe she was hyperventilating when it was severe in the CT scan. Since then, she has noticed some mild tingling in her right hand between the 1st and 2nd finger and at the ball of her foot. No other complaints at this time. Review of Systems Review of Systems: All systems reviewed & are unremarkable except as noted in HPI and below PMFSH Past Medical History Medical History Vitamin B12 deficiency Biliary dyskinesia Nausea and vomiting Left sided abdominal pain Heartburn Dyslipidemia Breast lump Breast pain History of breast cancer Endometriosis determined by laparoscopy Abnormal breast biopsy Endometriosis Breast cancer right breast, medial position lumpectomy 02-10-2022, Dr Kiser Vitamin D deficiency Elevated cholesterol Pain of left calf Hematuria Triple negative breast cancer Surgical History Surgical History S/P laparoscopic cholecystectomy S/P myringotomy with insertion of tube Hx of myomectomy History of adenoidectomy History of breast biopsy History of tonsillectomy Social History Social History Smoking status: Never smoker Second hand tobacco smoke exposure: No Alcohol intake: never Drinks per week: 1 Alcohol use details: rarely Substance use: never Substance use type: does not use Do You Feel Safe in your Home?: Yes Lack of Transportation: No Lack of Food: Never True Current Housing: I Have Housing Concerned About Future Housing: No Difficulty Paying Gas/Electric Bills: No Difficulty Paying for Meds: No Currently Unemployed: No Education: High School Diploma/GED Difficulty w/ Childcare or Family Care: No Living arrangements: alone Occupation/Education: occupation Gender identity (if verbalized by the patient): Female Spiritual care concerns: No Meds Home Medications and Allergies Home Medications ?Medication ?Instructions ?Recorded ?Confirmed ?Type levothyroxine 75 mcg capsule 75 mcg PO DAILY #90 caps 05/30/23 05/27/24 Rx linaclotide 72 mcg capsule 72 mcg PO DAILY 1 month #30 caps 10/12/23 05/27/24 Rx (Linzess) alprazolam 0.25 mg tablet 0.25 mg PO DAILY PRN anxiety #30 01/08/24 05/27/24 Rx tabs bempedoic acid 180 mg tablet 180 mg PO DAILY #90 tabs 02/27/24 05/27/24 Rx (Nexletol) montelukast 10 mg tablet 10 mg PO DAILY #90 tabs 02/27/24 05/27/24 Rx (Singulair) omeprazole 40 mg capsule,delayed 40 mg PO DAILY 1 month #30 caps 03/08/24 05/27/24 Rx release cetirizine 10 mg tablet (24Hour 10 mg PO DAILY 05/27/24 05/27/24 History Allergy) epinephrine 0.3 mg/0.3 mL 0.3 ml IM [id number] PRN anaphylaxis 05/27/24 05/27/24 History injection, auto-injector (EpiPen) hydrocodone 5 mg-acetaminophen 325 1 - 2 tablet PO Q6H PRN pain #20 05/27/24 05/27/24 Rx mg tablet tabs Allergies Allergy/AdvReac Type Severity Reaction Status Date / Time carboplatin Allergy Severe Anaphylaxis Verified 05/27/24 20:31 sulfamethoxazole (From Allergy Unknown Unknown Verified 05/27/24 20:31 Sulfamethoxazole-Trimethoprim) trimethoprim (From Allergy Unknown Unknown Verified 05/27/24 20:31 Sulfamethoxazole-Trimethoprim) ciprofloxacin AdvReac Intermediate Diarrhea Verified 05/27/24 20:31 doxycycline AdvReac Intermediate Vomiting Verified 05/27/24 20:31 oxycodone (From Percocet) AdvReac Intermediate Vomiting Verified 05/27/24 20:31 [id number] Reductase AdvReac Intermediate Myalgias Verified 05/27/24 20:31 Inhibitor nitrofurantoin AdvReac Mild Rash Verified 05/27/24 20:31 Vital Signs Vital Signs - 24 hr 05/27/24 21:03 05/27/24 22:20 05/28/24 05:40 Temperature 97.9 F 97.2 F L Pulse Rate 113 H 115 H Respiratory Rate 20 18 Blood Pressure 122/74 119/66 Pulse Oximetry 99 97 Oxygen Delivery Room Air 05/28/24 08:00 Temperature Pulse Rate Respiratory Rate Blood Pressure Pulse Oximetry Oxygen Delivery Room Air Exam Const: General: no acute distress and uncomfortable (due to pain) Nutritional Appearance: overweight Orientation/consciousness: patient oriented x3 HENMT: Head: normocephalic and atraumatic Ears: hearing grossly normal bilaterally Mouth: Yes moist mucous membranes Eyes: General: appearance normal, both eyes and all related structures Pupils: Equal, round and reactive pupils present Neck: Neck: normal visual inspection and full ROM Resp: Effort & Inspection: no respiratory distress Auscultation: clear to auscultation bilaterally Cardio: Rate: regular rate Rhythm: regular rhythm Peripheral pulses: Peripheral pulses 2+ throughout GI: Inspection: non-distended and incision (port incisions dry with glue intact, no erythema or drainage) GI Palp: Yes Soft to palpation, Yes Tenderness to palpation present (GI) (epigastric and RUQ, which is located near her incisions), Yes Guarding due to palpation present (GI) (RUQ), Yes No hepatosplenomegaly present, No Hernia present and No Rebound tenderness present Auscultation: Hypoactive bowel sounds present Urinary Catheter: Urinary Catheter: patent and draining and urine clear (dark yellow urine) Skin: General skin exam: normal color Neuro: General: moves all extremities and no focal motor deficits Speech: normal speech Motor exam (neuro): 5/5 motor strength present throughout Extrem: General: normal to inspection and no edema Psych: Mental Status: mental status grossly normal Attitude: cooperative Insight: Good insight present (Psych) Judgement: Good judgement present (Psych) H&P: Results Labs Labs: Short CBC 05/27/24 05/28/24 Range/Units 23:21 08:43 WBC 8.7 6.8 (4.5-10.0) K/mm3 Hgb 12.0 11.1 L (12.0-15.0) g/dL Hct 36.4 L 34.1 L (37.0-47.0) % Plt Count 340 333 (150-375) k/mm3 BMP 05/27/24 05/28/24 23:21 08:43 Sodium 142 140 Potassium 3.2 L 3.7 Chloride 106 107 Carbon Dioxide 23 23 BUN 10 10 Creatinine 0.63 L 0.73 Glucose 87 98 Calcium 9.1 8.8 Liver Function 05/27/24 05/28/24 Range/Units 23:21 08:43 Total Bilirubin 0.9 0.9 (0.2-1.3) mg/dL AST 48 H 90 H (14-36) U/L ALT 59 H 96 H (6-35) U/L Alkaline Phosphatase 108 110 (38-126) U/L Albumin 4.0 3.7 (3.5-5.1) g/dL Imaging CT scan - abdomen: Radiologist's impression: ITS Impressions Abdomen/Pelvis CT 05/28/24 06:05 Impression: Status post cholecystectomy with probable expected postoperative changes about the gallbladder fossa. No abnormal fluid collection or abscess. Assessment and Plan Assessment and plan (1) Postoperative pain: Code(s): G89.18 - Other acute postprocedural pain Status: Acute Assessment and Plan: Patient admitted for uncontrolled postoperative abdominal pain. Her pain is focal in the RUQ. This has been ongoing since surgery and she has had no relief at home with oral analgesics. She has not had any nausea or vomiting, but is not tolerating much of a diet due to lack of appetite. CT scan of the abdomen and pelvis showed changes of her recent cholecystectomy, but no other acute findings that would explain her abdominal pain. Labs are unremarkable as well with a normal WBC count and only barely elevated AST and ALT. Bilirubin is normal. There is no fluid collection seen on CT. There is no hematoma or hernias noted. Her abdominal pain is directly at one of the RUQ port site incisions. We will continue with PRN analgesics and try adding a Lidocaine patch to this area to see if it will help provide some relief. We will also try stimulating her bowels as her constipation could contribute to her abdominal pain. She has no signs of an ileus or an obstruction, but has not had a good bowel movement since surgery. We can try advancing her diet as tolerated to a low fat diet. Will follow with serial abdominal exams and repeat labs again tomorrow. Encouraged the patient to try increasing activity if she can tolerate this and ambulate later today. I will also order incentive spirometry to help as she has been avoiding deep breathing due to her pain. (2) S/P laparoscopic cholecystectomy: Code(s): Z90.49 - Acquired absence of other specified parts of digestive tract Status: Acute Assessment and Plan: Patient underwent laparoscopic cholecystectomy on 05/24/[address] Koch for biliary colic and gallbladder dysfunction. Surgery was straightforward with the only complication being profound bradycardia with a pneumoperitoneum of 15 mmHg that was addressed by anesthesiology and she was stabilized and then tolerated surgery with a lower pneumoperitoneum pressure. Pathology showed cholesterolosis. Her incisions are healing well without any signs of infection. She is admitted in the setting of uncontrolled postoperative abdominal pain. See plan above. (3) Constipation: Code(s): K59.00 - Constipation, unspecified Status: Acute Assessment and Plan: Patient has not moved her bowels in the past 3 days and has a history of IBS-C. CT showed some stool scattered throughout the colon. Will give her a dose of milk of mag today. Constipation could be contributing to her abdominal pain. (4) Urinary retention: Code(s): R33.9 - Retention of urine, unspecified Status: Acute Assessment and Plan: She has had issues with incomplete emptying of her bladder since surgery. She feels like it is related to her abdominal pain. Echevarria catheter was placed for urinary retention and we will continue for now. Will order a UA today as well. (5) Anxiety: Code(s): F41.9 - Anxiety disorder, unspecified Status: Acute Assessment and Plan: History of anxiety, which seems exacerbated with this admission and her abdominal pain. Will start PRN Ativan and monitor. Hospitalist also consulted. (6) Acquired hypothyroidism: Code(s): E03.9 - Hypothyroidism, unspecified Status: Acute Assessment and Plan: Continue home medications. Hospitalist consulted. (7) History of breast cancer: Code(s): Z85.3 - Personal history of malignant neoplasm of breast Status: Acute Assessment and Plan: History of right breast cancer treated in 2021 with chemotherapy, surgery, and radiation. 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 No other history of blood clots. She is on Lovenox for VTE prophylaxis. Plan I have discussed the patient's case and plan of care with Dr. Koch. Quality VTE Prophylaxis VTE prophylaxis: mechanical ordered and pharmacologic ordered
[2024-05-28 12:43] LABS: Add Urine Microscopic? YES; Appearance Urine Cloudy (Clear); Bacteria Urine None Seen /hpf; Bilirubin Urine Negative (Negative); Blood Urine Negative (Negative); Color Urine Dark Yellow (Yellow); Glucose Urine UA Negative (Negative); Ketones Urine Trace mg/dL (Negative); Leukocyte Esterase Ur Negative LEU/UL (Negative); Nitrate Urine Negative (Negative); Non Pathogenic Casts 0-2; Protein Urine Trace mg/dL (Negative); RBC Urine 0-2 /hpf (0-2); Specific Grav Ur > 1.045 (1.001-1.035); Squamous Epithelial Cell Urine None Seen /hpf (Few); WBC Urine 0-5 /hpf (0-3)
[2024-05-28] MEDS: LIDOCAINE 5% PATCH 1 PATCH TRANSDERM (12:59)
[2024-05-28] MEDS: MAGNESIUM HYDROXIDE SUSP 30 ML UDC 60 ML PO (13:00)
[2024-05-28] MEDS: LORazepam INJ (*CRX) 2 MG/ML VIAL 0.5 MG IV PUSH (13:00)
[2024-05-28 14:00] VITALS: BP 108/66; PULSE 103; RESP 18; TEMP 36.5; O2SAT 95
[2024-05-28 20:00] VITALS: PULSE 98; RESP 16; O2SAT 98
[2024-05-28 20:25] VITALS: BP 112/71; PULSE 98; RESP 16; TEMP 36.6; O2SAT 98
[2024-05-29] MEDS: HYDROmorphone HCL INJ (*CRX) 1 MG/ML SYR IV PUSH ×3 (00:55→12:42)
[2024-05-29] MEDS: ONDANSETRON INJ 4 MG/2 ML VIAL IV PUSH ×3 (01:02→11:21)
[2024-05-29] MEDS: SODIUM CHLORIDE 0.9% IV 1,000 ML 100 ML IV CONT (01:32)
[2024-05-29] MEDS: PIPERACILLN/TAZ 3.375GM/NS50ML 3.375 GM/50 ML BAG IVPB (05:25)
[2024-05-29 05:44] VITALS: BP 100/67; PULSE 84; RESP 16; TEMP 36.2; O2SAT 97
[2024-05-29] MEDS: LEVOTHYROXINE SODIUM 75 MCG TABLET PO (06:26)
[2024-05-29] MEDS: LINACLOTIDE 72 MCG CAPSULE PO (06:26)
[2024-05-29 06:49] LABS: Hematocrit 30.7 % (37.0-47.0); Hemoglobin 9.8 g/dL (12.0-15.0); Mean Corpuscular HGB Conc 31.9 g/dl (32-36); Mean Corpuscular Hemoglobin 29.5 pg (26-34); Mean Corpuscular Volume 92.5 fl (80-100); Mean Platelet Volume 9.6 fl (7.4-10.4); Platelet Count Result 297 k/mm3 (150-375); Red Blood Count 3.32 M/mm3 (4.2-5.4); Red Cell Distribution Width 12.5 % (11.5-14.5); White Blood Count 6.9 K/mm3 (4.5-10.0)
[2024-05-29 07:24] LABS: Alanine Aminotransferase 94 U/L (6-35); Albumin Level 3.4 g/dL (3.5-5.1); Alkaline Phosphatase 106 U/L (38-126); Anion Gap 10 mmol/L (4-12); Aspartate Amino Transferase 62 U/L (14-36); Bilirubin,Total 0.6 mg/dL (0.2-1.3); Blood Urea Nitrogen 7 mg/dL (7-17); Calcium 8.5 mg/dL (8.4-10.2); Carbon Dioxide 23 mmol/L (22-30); Chloride 106 mmol/L (98-107); Estimated CRCL calculation 127 ml/min; Estimated Glomerular Filt Rate > 60; Glucose 100 mg/dL (65-110); Potassium 3.8 mmol/L (3.4-5.0); Sodium 139 mmol/L (137-145)
--- NOTE | 2024-05-29 08:39 | P.PNIM_ITS ---
Progress Note: A&P Assessment and Plan (1) Dyslipidemia: Code(s): E78.5 - Hyperlipidemia, unspecified Status: Acute (2) Acute acalculous cholecystitis: Code(s): K81.0 - Acute cholecystitis Status: Acute (3) Acquired hypothyroidism: Code(s): E03.9 - Hypothyroidism, unspecified Status: Acute (4) Anxiety: Code(s): F41.9 - Anxiety disorder, unspecified Status: Acute (5) GERD (gastroesophageal reflux disease): Code(s): K21.9 - Gastro-esophageal reflux disease without esophagitis Status: Acute Plan Acute acalculous cholecystitis Status post cholecystectomy Patient is on Zosyn now patient afebrile, white blood cell within normal limit Patient still has right upper quadrant pain, pain is tolerable Advance diet as per general surgeon Asthma Stable Continue Singulair 10 mg daily p.o. Albuterol nebulizer q.4 hours p.r.n. Provide incentive spirometry Patient is on room air, no O2 desaturation Acquired hypothyroidism Continue Synthroid 75 mcg daily p.o. GERD Continue omeprazole 40 mg daily p.o. Anemia mild anemia, no obvious bleeding Thank you for allowing us to participate in the care of the patient Subjective Date/time seen: 05/29/24 08:39 Interval history: Patient is afebrile overnight, patient on room air, no O2 desaturation Labs reviewed, hemoglobin down slightly, 9.8 a.m. Chemistry unremarkable Patient feels pain is tolerable. Denies chest pain, shortness of breath, palpitation, headache, focal weakness. Exam Narrative: GENERAL: Pleasant, in no acute distress. Well-nourished. - EYES: EOMI. Anicteric. - HENT: Moist mucous membranes. - LUNGS: Clear to auscultation bilateral ly, no wheezing, rhonchi, or rales. - CARDIOVASCULAR: Regular rate and rhyth m. No murmur. No JVD. - ABDOMEN: Soft, right upper quadrant ab dominal tender and non-distended. Surgical wound is dry and clean No palpable masses. - EXTREMITIES: No edema. Peripheral puls es 2+. Non-tender. - NEUROLOGIC: No focal neurological defi cits. CN II-XII grossly intact. - PSYCHIATRIC: Awake, Alert and oriented x 3. Appropriate mood and affect. - SKIN: No rashes or lesions. Warm. - LYMPH: No cervical lymphadenopathy. Objective Data Vital Signs Vital Signs: Vital Signs - 24 hr 05/28/24 14:00 05/28/24 20:00 05/28/24 20:25 Temperature 97.7 F 97.8 F Pulse Rate 103 H 98 98 Respiratory Rate 18 16 16 Blood Pressure 108/66 112/71 Pulse Oximetry 95 98 98 Oxygen Delivery Room Air 05/29/24 05:44 Temperature 97.2 F L Pulse Rate 84 Respiratory Rate 16 Blood Pressure 100/67 Pulse Oximetry 97 Oxygen Delivery Intake/Output Intake/Output: Intake & Output 05/26/24 05/27/24 05/28/24 05/29/24 23:59 23:59 23:59 23:59 Intake Total 3160 50 Output Total 1200 650 Balance 1960 -600 Meds/Results Medications: Active Medications Generic Name Dose Route Start Last Admin Trade Name Freq PRN Reason Stop Dose Admin Hydrocodone Bitart/Acetaminophen 1 - 2 tab 05/27/24 23:10 Hydrocodone/Acetaminophen (*Crx) 5-325 Mg Tablet PO Q6H PRN Pain Rated 4-6 Enoxaparin Sodium 40 mg 05/29/24 09:00 Enoxaparin 40 Mg/0.4 Ml Syringe SUB-Q DAILY TRINY Hydromorphone HCl 0.5 mg 05/27/24 23:02 Hydromorphone Hcl Inj (*Crx) 1 Mg/Ml Syr IV PUSH Q2H PRN Pain Rated 4-6 Hydromorphone HCl 1 mg 05/27/24 23:02 05/29/24 07:07 Hydromorphone Hcl Inj (*Crx) 1 Mg/Ml Syr IV PUSH 1 mg Q2H PRN Administration Pain Rated 7-10 Piperacillin/Tazobactam/Dextrose 3.375 gm in 50 mls @ 100 mls/hr 05/28/24 05:00 05/29/24 05:55 Zosyn 3.375 Gm/Ns 50 Ml IVPB Infused Q6H TRINY Infusion Sodium Chloride 1,000 mls @ 100 mls/hr 05/27/24 23:05 05/29/24 01:32 Normal Saline Iv IV CONT 100 mls/hr .Q10H TRINY Administration Levothyroxine Sodium 75 mcg 05/28/24 06:30 05/29/24 06:26 Levothyroxine Sodium 75 Mcg Tablet PO 75 mcg DAILY@0630 TRINY Administration Lidocaine 1 patch 05/28/24 12:25 05/28/24 12:59 Lidocaine 5% Patch TRANSDERM 1 patch DAILY TRINY Administration Linaclotide 72 mcg 05/28/24 07:30 05/29/24 06:26 Linaclotide 72 Mcg Capsule PO 72 mcg DAILY@0730 TRINY Administration Loratadine 10 mg 05/28/24 09:00 05/28/24 08:22 Loratadine 10 Mg Tablet PO 10 mg QAM TRINY Administration Lorazepam 0.5 mg 05/28/24 12:16 05/28/24 13:00 Lorazepam Inj (*Crx) 2 Mg/Ml Vial IV PUSH 0.5 mg Q6H PRN Administration Anxiety Miscellaneous Information 1 each 05/27/24 00:01 Nonformulary Drug (Bempedoic Acid [Nexletol] 180 Mg Tablet)Can Patient Use From Home? XX 06/26/24 00:00 CLARIFY TRINY Montelukast Sodium 10 mg 05/28/24 09:00 05/28/24 08:22 Montelukast Sodium 10 Mg Tablet PO 10 mg DAILY TRINY Administration Non-Formulary Medication 180 mg 05/28/24 09:00 Bempedoic Acid [Nexletol] PO 06/27/24 08:59 DAILY [facility] Ondansetron HCl 4 mg 05/28/24 09:27 05/29/24 07:07 Ondansetron Inj 4 Mg/2 Ml Vial IV PUSH 4 mg Q6H PRN Administration Nausea And Vomiting Pantoprazole Sodium 40 mg 05/27/24 21:00 05/28/24 21:06 Pantoprazole 40 Mg Tablet PO 40 mg Q12HR TRINY Administration Radiology Results: ITS Impressions Abdomen/Pelvis CT 05/28/24 06:05 Impression: Status post cholecystectomy with probable expected postoperative changes about the gallbladder fossa. No abnormal fluid collection or abscess. Labs Labs: Laboratory Results - last 24 hr 05/28/24 05/28/24 05/29/24 08:43 12:29 05:44 WBC 6.8 6.9 RBC 3.79 L 3.32 L Hgb 11.1 L 9.8 L Hct 34.1 L 30.7 L MCV 90.0 92.5 MCH 29.3 29.5 MCHC 32.6 31.9 L RDW 12.6 12.5 Plt Count 333 297 MPV 9.0 9.6 Sodium 140 139 Potassium 3.7 3.8 Chloride 107 106 Carbon Dioxide 23 23 Anion Gap 10 10 BUN 10 7 Creatinine 0.73 0.62 L Estim Creat Clear Calc 109 127 Estimated GFR > 60 > 60 Glucose 98 100 Calcium 8.8 8.5 Total Bilirubin 0.9 0.6 AST 90 H 62 H ALT 96 H 94 H Alkaline Phosphatase 110 106 Total Protein 7.0 6.0 L Albumin 3.7 3.4 L Urine Color Dark yellow Urine Appearance Cloudy H Urine pH 5.0 Ur Specific [place] > 1.045 H Urine Protein Trace Urine Glucose (UA) Negative Urine Ketones Trace H Ur Blood (Man) Negative Urine Nitrate Negative Urine Bilirubin Negative Urine Urobilinogen 1.0 Leukocyte Esterase Rfl Negative Urine RBC 0-2 Urine WBC 0-5 Ur Squamous Epith Cells None seen Urine Bacteria None seen Urine Casts 0-2
[2024-05-29] MEDS: ENOXAPARIN 40 MG/0.4 ML SYRINGE SUB-Q (09:36)
[2024-05-29] MEDS: LIDOCAINE 5% PATCH 1 PATCH TRANSDERM (09:37)
[2024-05-29] MEDS: LORATADINE 10 MG TABLET PO (09:37)
[2024-05-29] MEDS: PANTOPRAZOLE 40 MG TABLET PO ×2 (09:37→21:27)
[2024-05-29] MEDS: MONTELUKAST SODIUM 10 MG TABLET PO (09:37)
--- NOTE | 2024-05-29 11:01 | PM.PNGS ---
Progress Note: A&P Assessment and Plan (1) Postoperative pain: Code(s): G89.18 - Other acute postprocedural pain Status: Acute Assessment and Plan: Right upper quadrant pain is improving. She is still requiring the IV Dilaudid as needed for pain. Will also try adding Flexeril p.r.n. Continue the lidocaine patch. Will advance to a low-fat diet and stop her IV fluids. Her labs were unremarkable this morning with a normal white blood cell count. We will go ahead and stop the IV Zosyn as there are no signs of an ongoing infection. Encouraged increasing activity and mobilizing more today. Will D/C her Echevarria. (2) S/P laparoscopic cholecystectomy: Code(s): Z90.49 - Acquired absence of other specified parts of digestive tract Status: Acute Assessment and Plan: Patient underwent laparoscopic cholecystectomy on 05/24/[address] Koch for biliary colic and gallbladder dysfunction. Workup has been negative for any significant postoperative complications. See plan above. (3) Constipation: Code(s): K59.00 - Constipation, unspecified Status: Acute Assessment and Plan: She had 1 small bowel movement yesterday. Continue her Linzess. Will also add MiraLax, which she takes at home additionally as needed when constipated. (4) Urinary retention: Code(s): R33.9 - Retention of urine, unspecified Status: Acute Assessment and Plan: Patient has been able to mobilize more now that her abdominal pain has improved. UA negative. Will attempt a voiding trial and remove the Echevarria catheter today. (5) Anxiety: Code(s): F41.9 - Anxiety disorder, unspecified Status: Acute Assessment and Plan: Improved. We will stop the IV Ativan and resume her home Xanax PRN. (6) Acquired hypothyroidism: Code(s): E03.9 - Hypothyroidism, unspecified Status: Acute Assessment and Plan: Continue home medications. Management per hospitalist. (7) History of breast cancer: Code(s): Z85.3 - Personal history of malignant neoplasm of breast Status: Acute Plan I have discussed the patient's case and plan of care with Dr. Koch. Subjective Subjective Date/Time Seen: 05/29/24 11:01 Patient reports: feels better, pain is less, tolerating liquids well, flatus, bowel movement (one small bowel movement yesterday) and afebrile Interval history: Patient feeling better today. Her abdominal pain has helped. She feels that Dilaudid is helping the most. She has been able to get up and walk around more easily. She is tolerating clear liquids. No nausea or vomiting. She is still complaining muscle spasm and tightening in her abdomen, which is what she feels is aggravating her pain. No fevers and white blood cell count still normal. UA negative for UTI. She did have 1 small bowel movement yesterday, but reports passing more flatus today. Exam Const: General: comfortable and no acute distress Orientation/consciousness: patient oriented x3 GI: Inspection: non-distended and incision (dry and glue intact, no erythema) GI Palp: Yes Soft to palpation, Yes Tenderness to palpation present (GI) (RUQ), No Guarding due to palpation present (GI), No Hernia present and No Rebound tenderness present Auscultation: normal bowel sounds Objective Data Vital Signs Vital Signs: Vital Signs - 24 hr 05/28/24 14:00 05/28/24 20:00 05/28/24 20:25 Temperature 97.7 F 97.8 F Pulse Rate 103 H 98 98 Respiratory Rate 18 16 16 Blood Pressure 108/66 112/71 Pulse Oximetry 95 98 98 Oxygen Delivery Room Air 05/29/24 05:44 Temperature 97.2 F L Pulse Rate 84 Respiratory Rate 16 Blood Pressure 100/67 Pulse Oximetry 97 Oxygen Delivery Intake/Output Intake/Output: Intake & Output 05/26/24 05/27/24 05/28/24 05/29/24 23:59 23:59 23:59 23:59 Intake Total 3160 248 Output Total 1200 650 Balance 1960 -402 Meds/Results Medications: Active Medications Generic Name Dose Route Start Last Admin Trade Name Freq PRN Reason Stop Dose Admin Hydrocodone Bitart/Acetaminophen 1 - 2 tab 05/27/24 23:10 Hydrocodone/Acetaminophen (*Crx) 5-325 Mg Tablet PO Q6H PRN Pain Rated 4-6 Enoxaparin Sodium 40 mg 05/29/24 09:00 05/29/24 09:36 Enoxaparin 40 Mg/0.4 Ml Syringe SUB-Q 40 mg DAILY TRINY Administration Hydromorphone HCl 0.5 mg 05/27/24 23:02 Hydromorphone Hcl Inj (*Crx) 1 Mg/Ml Syr IV PUSH Q2H PRN Pain Rated 4-6 Hydromorphone HCl 1 mg 05/27/24 23:02 05/29/24 07:07 Hydromorphone Hcl Inj (*Crx) 1 Mg/Ml Syr IV PUSH 1 mg Q2H PRN Administration Pain Rated 7-10 Piperacillin/Tazobactam/Dextrose 3.375 gm in 50 mls @ 100 mls/hr 05/28/24 05:00 05/29/24 05:55 Zosyn 3.375 Gm/Ns 50 Ml IVPB Infused Q6H TRINY Infusion Levothyroxine Sodium 75 mcg 05/28/24 06:30 05/29/24 06:26 Levothyroxine Sodium 75 Mcg Tablet PO 75 mcg DAILY@0630 TRINY Administration Lidocaine 1 patch 05/28/24 12:25 05/29/24 09:37 Lidocaine 5% Patch TRANSDERM 1 patch DAILY TRINY Administration Linaclotide 72 mcg 05/28/24 07:30 05/29/24 06:26 Linaclotide 72 Mcg Capsule PO 72 mcg DAILY@0730 TRINY Administration Loratadine 10 mg 05/28/24 09:00 05/29/24 09:37 Loratadine 10 Mg Tablet PO 10 mg QAM TRINY Administration Lorazepam 0.5 mg 05/28/24 12:16 05/28/24 13:00 Lorazepam Inj (*Crx) 2 Mg/Ml Vial IV PUSH 0.5 mg Q6H PRN Administration Anxiety Miscellaneous Information 1 each 05/27/24 00:01 Nonformulary Drug (Bempedoic Acid [Nexletol] 180 Mg Tablet)Can Patient Use From Home? XX 06/26/24 00:00 CLARIFY TRINY Montelukast Sodium 10 mg 05/28/24 09:00 05/29/24 09:37 Montelukast Sodium 10 Mg Tablet PO 10 mg DAILY TRINY Administration Non-Formulary Medication 180 mg 05/28/24 09:00 Bempedoic Acid [Nexletol] PO 06/27/24 08:59 DAILY [facility] Ondansetron HCl 4 mg 05/28/24 09:27 05/29/24 07:07 Ondansetron Inj 4 Mg/2 Ml Vial IV PUSH 4 mg Q6H PRN Administration Nausea And Vomiting Pantoprazole Sodium 40 mg 05/27/24 21:00 05/29/24 09:37 Pantoprazole 40 Mg Tablet PO 40 mg Q12HR TRINY Administration Radiology Results: ITS Impressions Abdomen/Pelvis CT 05/28/24 06:05 Impression: Status post cholecystectomy with probable expected postoperative changes about the gallbladder fossa. No abnormal fluid collection or abscess. Labs Labs: Laboratory Results - last 24 hr 05/28/24 05/29/24 12:29 05:44 WBC 6.9 RBC 3.32 L Hgb 9.8 L Hct 30.7 L MCV 92.5 MCH 29.5 MCHC 31.9 L RDW 12.5 Plt Count 297 MPV 9.6 Sodium 139 Potassium 3.8 Chloride 106 Carbon Dioxide 23 Anion Gap 10 BUN 7 Creatinine 0.62 L Estim Creat Clear Calc 127 Estimated GFR > 60 Glucose 100 Calcium 8.5 Total Bilirubin 0.6 AST 62 H ALT 94 H Alkaline Phosphatase 106 Total Protein 6.0 L Albumin 3.4 L Urine Color Dark yellow Urine Appearance Cloudy H Urine pH 5.0 Ur Specific [place] > 1.045 H Urine Protein Trace Urine Glucose (UA) Negative Urine Ketones Trace H Ur Blood (Man) Negative Urine Nitrate Negative Urine Bilirubin Negative Urine Urobilinogen 1.0 Leukocyte Esterase Rfl Negative Urine RBC 0-2 Urine WBC 0-5 Ur Squamous Epith Cells None seen Urine Bacteria None seen Urine Casts 0-2
[2024-05-29] MEDS: polyethylene glycoL 3350 17 GM POWD.PACK PO (11:21)
[2024-05-29] MEDS: HYDROcodone/acetaminophen (*CRX) 5-325 MG TABLET PO ×3 (11:22→23:52)
--- NOTE | 2024-05-29 13:58 | PC.NURSE ---
order to d/c padilla. pt refused removal from snt, then refused removal from rn. pt educated on provider's order. pr still refused. provider notified.
[2024-05-29 14:00] VITALS: BP 110/66; PULSE 81; RESP 18; TEMP 36.2; O2SAT 99
[2024-05-29] MEDS: ALPRAZolam (*CRX) 0.25 MG TABLET PO (17:30)
[2024-05-29] MEDS: CYCLOBENZAPRINE HCL 5 MG TABLET PO (21:24)
[2024-05-29 21:27] VITALS: BP 121/68; PULSE 78; RESP 13; TEMP 36.5; O2SAT 100
[2024-05-29] MEDS: IBUPROFEN 600 MG TABLET PO (21:27)
[2024-05-30 05:34] VITALS: BP 100/62; PULSE 77; RESP 12; TEMP 36.2; O2SAT 96
[2024-05-30] MEDS: HYDROcodone/acetaminophen (*CRX) 5-325 MG TABLET PO (05:53)
[2024-05-30] MEDS: LEVOTHYROXINE SODIUM 75 MCG TABLET PO (05:56)
[2024-05-30] MEDS: LINACLOTIDE 72 MCG CAPSULE PO (05:56)
[2024-05-30] MEDS: LIDOCAINE 5% PATCH 1 PATCH TRANSDERM (08:22)
[2024-05-30] MEDS: polyethylene glycoL 3350 17 GM POWD.PACK PO (08:22)
[2024-05-30] MEDS: MONTELUKAST SODIUM 10 MG TABLET PO (08:22)
[2024-05-30] MEDS: PANTOPRAZOLE 40 MG TABLET PO (08:22)
[2024-05-30] MEDS: ENOXAPARIN 40 MG/0.4 ML SYRINGE SUB-Q (08:22)
[2024-05-30] MEDS: LORATADINE 10 MG TABLET PO (08:23)
--- NOTE | 2024-05-30 08:50 | P.PNIM_ITS ---
Progress Note: A&P Assessment and Plan (1) Dyslipidemia: Code(s): E78.5 - Hyperlipidemia, unspecified Status: Acute (2) Acute acalculous cholecystitis: Code(s): K81.0 - Acute cholecystitis Status: Acute (3) Acquired hypothyroidism: Code(s): E03.9 - Hypothyroidism, unspecified Status: Acute (4) Anxiety: Code(s): F41.9 - Anxiety disorder, unspecified Status: Acute (5) GERD (gastroesophageal reflux disease): Code(s): K21.9 - Gastro-esophageal reflux disease without esophagitis Status: Acute Plan Acute acalculous cholecystitis Status post cholecystectomy patient received Zosyn now patient afebrile, white blood cell within normal limit right upper quadrant pain, but pain is tolerable without need of a narcotic medication Advance diet as per general surgeon, patient tolerated diet well Asthma Stable Continue Singulair 10 mg daily p.o. Albuterol nebulizer q.4 hours p.r.n. Provide incentive spirometry Patient is on room air, no O2 desaturation Acquired hypothyroidism Continue Synthroid 75 mcg daily p.o. GERD Continue omeprazole 40 mg daily p.o. Anemia mild anemia, no obvious bleeding Thank you for allowing us to participate in the care of the patient Patient is medically stable for discharge Subjective Date/time seen: 05/30/24 08:50 Interval history: Patient is afebrile overnight, patient on room air, no O2 desaturation Labs reviewed, hemoglobin down slightly, 9.8 a.m. Chemistry unremarkable Patient feels pain is tolerable. patient tolerated diet well.Denies chest pain, shortness of breath, palpitation, headache, focal weakness. Exam Narrative: GENERAL: Pleasant, in no acute distress. Well-nourished. - EYES: EOMI. Anicteric. - HENT: Moist mucous membranes. - LUNGS: Clear to auscultation bilateral ly, no wheezing, rhonchi, or rales. - CARDIOVASCULAR: Regular rate and rhyth m. No murmur. No JVD. - ABDOMEN: Soft, right upper quadrant ab dominal tender and non-distended. Surgical wound is dry and clean No palpable masses. - EXTREMITIES: No edema. Peripheral puls es 2+. Non-tender. - NEUROLOGIC: No focal neurological defi cits. CN II-XII grossly intact. - PSYCHIATRIC: Awake, Alert and oriented x 3. Appropriate mood and affect. - SKIN: No rashes or lesions. Warm. - LYMPH: No cervical lymphadenopathy. Objective Data Vital Signs Vital Signs: Vital Signs - 24 hr 05/29/24 14:00 05/29/24 20:00 05/29/24 21:27 Temperature 97.1 F L 97.7 F Pulse Rate 81 78 Respiratory Rate 18 13 Blood Pressure 110/66 121/68 Pulse Oximetry 99 100 Oxygen Delivery Room Air 05/30/24 05:34 Temperature 97.1 F L Pulse Rate 77 Respiratory Rate 12 Blood Pressure 100/62 Pulse Oximetry 96 Oxygen Delivery Intake/Output Intake/Output: Intake & Output 05/27/24 05/28/24 05/29/24 05/30/24 23:59 23:59 23:59 23:59 Intake Total 3160 1272 300 Output Total 1200 2350 1625 Balance 9178 -6863 -6479 Meds/Results Medications: Active Medications Generic Name Dose Route Start Last Admin Trade Name Freq PRN Reason Stop Dose Admin Hydrocodone Bitart/Acetaminophen 1 - 2 tab 05/27/24 23:10 05/30/24 05:53 Hydrocodone/Acetaminophen (*Crx) 5-325 Mg Tablet PO 2 tab Q6H PRN Administration Pain Rated 4-6 Alprazolam 0.25 mg 05/29/24 11:03 05/29/24 17:30 Alprazolam (*Crx) 0.25 Mg Tablet PO 0.25 mg BID PRN Administration Anxiety Cyclobenzaprine HCl 5 mg 05/29/24 11:03 05/29/24 21:24 Cyclobenzaprine Hcl 5 Mg Tablet PO 5 mg Q8H PRN Administration Muscle Spasm Enoxaparin Sodium 40 mg 05/29/24 09:00 05/30/24 08:22 Enoxaparin 40 Mg/0.4 Ml Syringe SUB-Q 40 mg DAILY TRINY Administration Ibuprofen 600 mg 05/29/24 15:45 05/29/24 21:27 Ibuprofen 600 Mg Tablet PO 600 mg Q6H PRN Administration Pain Rated 1-3 Levothyroxine Sodium 75 mcg 05/28/24 06:30 05/30/24 05:56 Levothyroxine Sodium 75 Mcg Tablet PO 75 mcg DAILY@0630 TRINY Administration Lidocaine 1 patch 05/28/24 12:25 05/30/24 08:22 Lidocaine 5% Patch TRANSDERM 1 patch DAILY TRINY Administration Linaclotide 72 mcg 05/28/24 07:30 05/30/24 05:56 Linaclotide 72 Mcg Capsule PO 72 mcg DAILY@0730 TRINY Administration Loratadine 10 mg 05/28/24 09:00 05/30/24 08:23 Loratadine 10 Mg Tablet PO 10 mg QAM TRINY Administration Miscellaneous Information 1 each 05/27/24 00:01 05/30/24 02:14 Nonformulary Drug (Bempedoic Acid [Nexletol] 180 Mg Tablet)Can Patient Use From Home? XX 06/26/24 00:00 Not Given CL[facility]IFY [facility] Montelukast Sodium 10 mg 05/28/24 09:00 05/30/24 08:22 Montelukast Sodium 10 Mg Tablet PO 10 mg DAILY TRINY Administration Non-Formulary Medication 180 mg 05/28/24 09:00 Bempedoic Acid [Nexletol] PO 06/27/24 08:59 DAILY [facility] Ondansetron HCl 4 mg 05/28/24 09:27 05/29/24 11:21 Ondansetron Inj 4 Mg/2 Ml Vial IV PUSH 4 mg Q6H PRN Administration Nausea And Vomiting Ondansetron HCl 4 mg 05/30/24 08:30 Ondansetron Hcl Odt 4 Mg Tablet PO Q6H PRN Nausea And Vomiting Pantoprazole Sodium 40 mg 05/27/24 21:00 05/30/24 08:22 Pantoprazole 40 Mg Tablet PO 40 mg Q12HR TRINY Administration Polyethylene Glycol 17 gm 05/29/24 11:05 05/30/24 08:22 Polyethylene Glycol 3350 17 Gm Powd.Pack PO 17 gm QAM TRINY Administration Radiology Results: ITS Impressions Abdomen/Pelvis CT 05/28/24 06:05 Impression: Status post cholecystectomy with probable expected postoperative changes about the gallbladder fossa. No abnormal fluid collection or abscess.
[2024-05-30] MEDS: ONDANSETRON HCL ODT 4 MG TABLET PO (09:10)
--- NOTE | 2024-05-30 11:45 | P.DS_ITS ---
DS: Admitting Diagnosis Discharge Date 05/30/2024 Admitting Diagnosis Postoperative pain Constipation S/p laparoscopic cholecystectomy Urinary retention Anxiety Hx of breast cancer Hypothyroidism DS: Discharge Diagnosis Discharge Diagnosis (1) Postoperative pain: Code(s): G89.18 - Other acute postprocedural pain Status: Acute (2) Urinary retention: Code(s): R33.9 - Retention of urine, unspecified Status: Acute (3) History of breast cancer: Code(s): Z85.3 - Personal history of malignant neoplasm of breast Status: Acute (4) S/P laparoscopic cholecystectomy: Code(s): Z90.49 - Acquired absence of other specified parts of digestive tract Status: Acute (5) Constipation: Code(s): K59.00 - Constipation, unspecified Status: Acute (6) Acquired hypothyroidism: Code(s): E03.9 - Hypothyroidism, unspecified Status: Acute DS: Summary Hospital Course Reason for hospitalization: This is a 34-year-old who underwent laparoscopic cholecystectomy on 05/24/[address] Koch for chronic acalculous cholecystitis. During surgery, she had profound bradycardia with a pneumoperitoneum of 15 mmHg, which was addressed by anesthesiology and she was stabilized without dropping her blood pressure. She was then able to tolerate a lower pneumoperitoneum and surgery was successfully completed without any other complications. She was discharged home the same day of surgery. Since being discharged home, she has reported having right upper quadrant abdominal pain, poor appetite, and constipation. Due to her persistent pain, she came into An outlying facility ED for evaluation. she refuses CT scan at that facility due to the abdominal pain and was transferred to [facility] directly for surgical evaluation and CT scan. Workup in the ED showed a normal white blood cell count, LFTs essentially normal with mildly elevated AST and ALT. Total bilirubin normal. mild hypokalemia. CT scan of the abdomen/pelvis showed changes of a cholecystectomy with probable expected postoperative changes about the gallbladder fossa, with no abnormal fluid collection or abscess. No other acute intraabdominal findings. She was admitted for postoperative abdominal pain. Hospital Course: She was initially started on IV Zosyn empirically for possible infection. There is no evidence of a bile leak, abscess, hematoma, or any other acute findings that would explain the reason for her abdominal pain involving a postoperative complication or any other incidental etiologies. She did have urinary retention and felt that she was having difficulty urinating due to the abdominal pain, therefore she had a Echevarria catheter placed. UA ordered and negative for UTI. She was treated with IV analgesics for better pain control. She also was started on lidocaine patch in the right upper quadrant for localized analgesia, as well as muscle relaxers and Ativan for her anxiety. She began to have improvement in her pain and was able to tolerate activity much better. She was able the ambulate in her room and into the bathroom. Her diet was advanced to a low-fat diet, which she was able to tolerate better. She still had some mild nausea at times, which was relieved with Zofran. No vomiting. She was also treated with bowel stimulation and did end up having a bowel movement, with some relief. Labs were monitored and remained unremarkable. Her white blood cell count remained normal and she was afebrile. Incisions had no signs of infection. Her IV antibiotics were stopped. Her abdominal pain eventually improved and she was transitioned to oral analgesics. She was stable for discharge today. Echevarria removed and she had a voiding trial today. Patient cleared for discharge once voiding without difficulty. Status at Discharge Functional status at discharge: independent ambulation Overall status at discharge: patient is progressing back to baseline Time Spent with Patient Time attestation: Total time spent providing and/or coordinating discharge services: Time spent: Less than 30 minutes Exam Const: General: comfortable and no acute distress Orientation/consciousness: patient oriented x3 GI: Inspection: non-distended and incision ( Dry and glue intact, no erythema or drainage) GI Palp: Yes Soft to palpation, Yes Tenderness to palpation present (GI) ( tinning equipment tender in the right upper quadrant, but improved), No Guarding due to palpation present (GI), No Hernia present and No Rebound tenderness present Percussion: Yes normal to percussion Auscultation: normal bowel sounds Extrem: General: normal to inspection, no calf tenderness and no edema DS: Data Imaging Radiologist's impression: ITS Impressions Abdomen/Pelvis CT 05/28/24 06:05 Impression: Status post cholecystectomy with probable expected postoperative changes about the gallbladder fossa. No abnormal fluid collection or abscess. Discharge Plan Discharge Attending physician on discharge: Catalino Koch Consulting providers: Danyell Ramirez Discharging Clinician: Erum Pearce Anticipated Discharge Date/Time: 05/30/24 13:00 Patient Disposition: Home, Self-Care Activity: may shower and no straining Diet: as tolerated and low fat Wound Care Instructions: incision open to air Discharge Instructions: * no lifting more than 10-15 lb for 2 weeks postop * follow-up with Dr. Koch as scheduled in 2 weeks * no driving while on narcotic pain medication * alternate Tylenol, ibuprofen, and Flexeril as needed for pain control * may shower, incisions open to air * continue taking MiraLax daily until bowels are moving consistently Patient Instructions: Antibiotic Form Patient Language: Slovak Stand Alone Forms: General Discharge Information Follow-up/Referrals: Catalino Koch MD [Physician] - Keep Reg. Scheduled Appt. Discharge Medications: New cyclobenzaprine 5 mg tablet 5 mg PO TID PRN (Reason: Muscle Spasm) Qty: 20 0RF lidocaine [Lidoderm] 5 % Adhesive Patch,Medicated 1 patch transdermal DAILY Qty: 15 0RF Rx Instructions: Put patch on for 12 hours, then remove and have off for 12 hours. ondansetron 4 mg Tablet,Disintegrating 4 mg PO Q6H PRN (Reason: Nausea And Vomiting) Qty: 10 0RF Continued Linzess 72 mcg capsule 72 mcg PO DAILY 30 Days Qty: 30 5RF cetirizine [24Hour Allergy] 10 mg tablet 10 mg PO DAILY epinephrine [EpiPen] 0.3 mg/0.3 mL auto-injector 0.3 ml IM [id number] PRN (Reason: anaphylaxis) Patient Comments: FOR ALLERGY SHOT REACTION levothyroxine 75 mcg capsule 75 mcg PO DAILY Qty: 90 0RF alprazolam 0.25 mg tablet 0.25 mg PO DAILY PRN (Reason: anxiety) Qty: 30 2RF Nexletol 180 mg tablet 180 mg PO DAILY Qty: 90 0RF montelukast [Singulair] 10 mg tablet 10 mg PO DAILY Qty: 90 0RF omeprazole 40 mg capsule,delayed release(DR/EC) 40 mg PO DAILY 30 Days Qty: 30 11RF hydrocodone-acetaminophen 5-325 mg tablet 1 - 2 tablet PO Q6H PRN (Reason: pain) Qty: 20 0RF Date of admission: 05/27/24 23:05 Primary Care Provider: Bhavna Ventura Admitting Provider: Nova Lakhani Attending physician on admission: Nova Lakhani Condition: Stable Quality VTE Prophylaxis VTE prophylaxis: mechanical ordered and pharmacologic ordered
[2024-05-30] MEDS: CYCLOBENZAPRINE HCL 5 MG TABLET PO (16:03)
== END 2024-05-30 16:05 | disposition home or self-care (01) | DRG 948 ==
PROVIDERS: Nurse Practitioner Family; Admitting Provider Surgery; PCP Physician Assistant Medical; Visit Provider Surgery
DX: G89.18 Other acute postprocedural pain (principal); R10.11 Right upper quadrant pain; Z90.49 Acquired absence of other specified parts of digestive tract; K59.00 Constipation, unspecified; R33.9 Retention of urine, unspecified; E03.9 Hypothyroidism, unspecified; E78.5 Hyperlipidemia, unspecified; F41.9 Anxiety disorder, unspecified; J45.909 Unspecified asthma, uncomplicated; K21.9 Gastro-esophageal reflux disease without esophagitis; Z85.3 Personal history of malignant neoplasm of breast; Z86.718 Personal history of other venous thrombosis and embolism
CPT/HCPCS: 36415; 74177; 80053; 81001; 85025; 85027; A9270; J1171; J1650; J2060; J2405; J2543; J7030; Q9967

== ENCOUNTER 2024-07-25 18:22 | Emergency (ER) | payer OTHER, SELFPAY ==
--- OUTSIDE RECORDS SUMMARY | 2024-07-25 18:24 | XMS_ITS ---
Author Organization [facility] [place] ([address]) Address [address] [place] [address] Care Team Providers Care Plater Hot Dip Name Role Phone hCela PRAJAPATI, Dr Angelo Primary Care Provider Nita Naqvi [facility] [phone] REASON FOR VISIT SCIT - Traditional Schedule Allergy Immunotherapy Social History Sex Assigned At : Social History Observation Description Sex Assigned At Female Encounters Encounter Location Date Provider Diagnosis [address] [address] 07/16/2024 Nita Conrad Allergic rhinitis du e to pollen J30.1 ; Other allergic rhinitis J30.89 ; Allergic rhinitis due to animal (cat) (dog) hair and dander J30.81 and Other chronic allergic conjunctivitis H10.45 Assessments Encounter Date Diagnosis (ICD Code) Assessment Notes Treatment Notes Treatment Clinical Notes Section Notes 07/16/2024 Allergic rhinitis due to pollen (ICD-10 - J30.1) 07/16/2024 Other allergic rhinitis (ICD-10 - J30.89) 07/16/2024 Allergic rhinitis due to animal (cat) (dog) hair and dander (ICD-10 - J30.81) 07/16/2024 Other chronic allergic conjunctivitis (ICD-10 - H10.45) Plan Of Treatment Next Appt Details Follow Up: As scheduled, Kacie son: Provider Name:Nita felton, 07/29/2024 05:00:00 PM, [place], [address], Provider Name:Nita felton, 08/12/2024 05:00:00 PM, [place], [address], Provider Name:Nita felton, 08/26/2024 05:00:00 PM, [place], [address], Progress Notes * Latrice BRAYDOB:1990 (34 yo F)Acc No.[id number]:07/16/2024 SCIT-Aeroallergen Patient: Latrice ROMERO Provider: James Conrad MD :1990 A ge:34 Y S ex:Female Date:07/16/2024 Address:[address] [place], [place] [id number] Pcp:Dr Petey York MD Subjective: * Chief [...] H10.45 Plan: * Treatment: * Procedure Codes: * Preventive Medicine: Counseling: E xercise A [...] Information: * Visit Code: * Procedure Codes: * Sign off status: Completed true * Provider: James Conrad MD Date: 07/16/2024 Generated for Ortiz randall/Nina/Denisse on: 07/25/2024 06:24 PM CDT History and Physical Notes * [...]
--- OUTSIDE RECORDS SUMMARY | 2024-07-25 18:24 | XMS_ITS | Encounter Summary ---
Author Organization [facility] Address [address] [place] [address] Care Team Providers Care Coffee Sampler Name Role Phone Bhavna Ventura PA-C Primary Care Provider [phone]- [phone] Petey York MD Primary Care Provider + [phone] Catalino Koch MD Unavailable Bhavna Ventura PA-C Primary Care Provider +- [phone] Encounter Details Date Type Department Care Team (Late st Contact Info) Description 12/28/2022 [employer] Message Enc [facility] [address] [facility] [address] [place] [address] [place] [address] [place] [address] pain Social History Tobacco Use [...] on filedocumented in this encounter Care Teams Coffee Sampler Relationship Specialty Start Date End Date Bhavna Ventura PA-C [address] [place] [address] [address] [place] [address] PCP - General PHYSICIAN MEDICAL BILL PROCESSOR 12/24/21 01/16/23 Petey York MD [address] [place] [address] PCP - General FAMILY PRACTICE 01/17/23 05/26/24 Bhavna Ventura PA-C [address] [place], [place] [address] [place] [address] PCP - General PHYSICIAN MEDICAL BILL PROCESSOR 05/27/24 Catalino Koch MD [address] [facility] [address] [place] [address] GENERAL SURGERY 05/27/24 documented as of this encounter
--- OUTSIDE RECORDS SUMMARY | 2024-07-25 18:24 | XMS_ITS ---
Author Organization [facility] [place] ([address]) Address [address] [place] [address] Care Team Providers Care Mash Preparatory Operator Name Role Phone Chela PRAJAPATI, Dr Angelo Primary Care Provider Nita Naqvi [facility] [phone] REASON FOR VISIT SCIT - Traditional Schedule Allergy Immunotherapy Social History Sex Assigned At : Social History Observation Description Sex Assigned At Female Encounters Encounter Location Date Provider Diagnosis [address] [address] 07/15/2024 Nita Conrad Allergic rhinitis du e to pollen J30.1 ; Other allergic rhinitis J30.89 ; Allergic rhinitis due to animal (cat) (dog) hair and dander J30.81 and Other chronic allergic conjunctivitis H10.45 Assessments Encounter Date Diagnosis (ICD Code) Assessment Notes Treatment Notes Treatment Clinical Notes Section Notes 07/15/2024 Allergic rhinitis due to pollen (ICD-10 - J30.1) 07/15/2024 Other allergic rhinitis (ICD-10 - J30.89) 07/15/2024 Allergic rhinitis due to animal (cat) (dog) hair and dander (ICD-10 - J30.81) 07/15/2024 Other chronic allergic conjunctivitis (ICD-10 - H10.45) Plan Of Treatment Next Appt Details Follow Up: As scheduled, Kacie son: Provider Name:Nita felton, 07/29/2024 05:00:00 PM, [place], [address], Provider Name:Nita felton, 08/12/2024 05:00:00 PM, [place], [address], Provider Name:Nita felton, 08/26/2024 05:00:00 PM, [place], [address], Progress Notes * Latrice BRAYDOB:1990 (34 yo F)Acc No.[id number]:07/15/2024 SCIT-Aeroallergen Patient: Latrice ROMERO Provider: James Conrad MD :1990 A ge:34 Y S ex:Female Date:07/15/2024 Address:[address] [place], [place] [id number] Pcp:Dr Petey York MD Subjective: * Chief [...] conjunctivitis - H10.45 Plan: * Treatment: * Preventive Medicine: Counseling: E xercise A [...] * Visit Code: * Procedure Codes: * Electronic signature of An Conrad MD on 07/25/2024 at 06:24 PM CDT Sign off status: Pending * Provider: James Conrad MD Date: 07/15/2024 Generated for Ortiz randall/Nina/Denisse on: 07/25/2024 06:24 [...]
--- NOTE | 2024-07-25 18:25 | ED_ITS ---
HPI - Female Genitourinary General Chief complaint: Urogenital-Female Stated complaint: uti Time Seen by Provider: 07/25/24 18:24 Source: patient Mode of arrival: ambulatory Limitations: no limitations History of Present Illness HPI Narrative: Latrice is a 34-year-old female patient presenting to the clinic today with complaints of a possible UTI times. She reports she is having left groin/lower abdominal pain times 4-5 days. Currently rates the pain a 6 or 7 on a 0-10 scale. Denies any urinary symptoms. States she does not normally have urinary symptoms when she has UTI but develops hip pain. No fevers, chills, body aches. No known injury to the hip. History of constipation, gastroparesis, gastritis, and endometriosis. Last menstrual period was over 2 weeks ago. Had her gallbladder removed 1 month ago. No history of diverticulosis or diverticulitis. No history kidney stones. Denies any concern for STIs. Denies any vaginal discharge or odor. Related Data Home Medications Medication Instructions Recorded Confirmed Last Taken Type cetirizine 10 mg tablet (24Hour 10 mg PO DAILY 05/27/24 06/26/24 Unknown History Allergy) epinephrine 0.3 mg/0.3 mL 0.3 ml IM [id number] PRN anaphylaxis 05/27/24 06/26/24 Unknown History injection, auto-injector (EpiPen) Allergies Allergy/AdvReac Type Severity Reaction Status Date / Time carboplatin Allergy Severe Anaphylaxis Verified 07/25/24 18:29 sulfamethoxazole (From Allergy Unknown Unknown Verified 07/25/24 18:29 Sulfamethoxazole-Trimethoprim) trimethoprim (From Allergy Unknown Unknown Verified 07/25/24 18:29 Sulfamethoxazole-Trimethoprim) ciprofloxacin AdvReac Intermediate Diarrhea Verified 07/25/24 18:29 doxycycline AdvReac Intermediate Vomiting Verified 07/25/24 18:29 oxycodone (From Percocet) AdvReac Intermediate Vomiting Verified 07/25/24 18:29 Fhjnoan-DXT-HfZ Reductase AdvReac Intermediate Myalgias Verified 07/25/24 18:29 Inhibitor nitrofurantoin AdvReac Mild Rash Verified 07/25/24 18:29 Review of Systems Review of Systems: Pertinent positives per HPI. Patient denies any fever, chills, rash, headache, visual changes, dizziness, cough, runny nose, sore throat, shortness of breath, chest pain, palpitations, nausea, vomiting, diarrhea, constipation [facility] Past Medical History Medical History Vitamin B12 deficiency Biliary dyskinesia Nausea and vomiting Left sided abdominal pain Heartburn Dyslipidemia Breast lump Breast pain History of breast cancer Endometriosis determined by laparoscopy Abnormal breast biopsy Endometriosis Breast cancer right breast, medial position lumpectomy 02-10-2022, Dr Kiser Vitamin D deficiency Elevated cholesterol Pain of left calf Hematuria Triple negative breast cancer Surgical History Surgical History S/P laparoscopic cholecystectomy S/P myringotomy with insertion of tube Hx of myomectomy History of adenoidectomy History of breast biopsy History of tonsillectomy Social History Social History Smoking status: Never smoker Second hand tobacco smoke exposure: No Alcohol intake: never Drinks per week: 1 Alcohol use details: rarely Substance use: never Substance use type: does not use Do You Feel Safe in your Home?: Yes Lack of Transportation: No Lack of Food: Never True Current Housing: I Have Housing Concerned About Future Housing: No Difficulty Paying Gas/Electric Bills: No Difficulty Paying for Meds: No Currently Unemployed: No Education: High School Diploma/GED Difficulty w/ Childcare or Family Care: No Living arrangements: alone Occupation/Education: occupation Gender identity (if verbalized by the patient): Female Spiritual care concerns: No Comments At the time of my signature, I reviewed and agree with the nursing past medical, surgical, social, and family history. There is no relevant family history pertinent to the patient complaint. Exam Narrative: General: Well-developed, well nourished, in no apparent distress. Head: Normocephalic, atraumatic. Cardio: Regular rate and rhythm, s1 and s2 normal, no murmur appreciated. Resp: Clear to auscultation bilaterally, no rhonchi, rales, wheezing or rubs. Abdomen: Soft, pliable, bowel sounds present in all quadrants, non-tender to palpation, no organomegly, no CVAT tenderness. Course Course Emergency Course: Portions of this record may have been created with voice recognition software. Level of Care: Express Care Visit Vital Signs Vital signs: Vital Signs Temperature 36.6 C 07/25/24 18:30 Pulse Rate 82 07/25/24 18:30 Respiratory Rate 18 07/25/24 18:30 Blood Pressure 99/57 L 07/25/24 18:30 Pulse Oximetry 100 07/25/24 18:30 Oxygen Delivery Room Air 07/25/24 18:30 Temperature 36.6 C 07/25/24 18:30 Pulse Rate 82 07/25/24 18:30 Respiratory Rate 18 07/25/24 18:30 Blood Pressure 99/57 L 07/25/24 18:30 Pulse Oximetry 100 07/25/24 18:30 Oxygen Delivery Room Air 07/25/24 18:30 Vital signs reviewed MDM - Female Genitourinary MDM Narrative Medical decision making narrative: At the time of visit patient is resting comfortably on the exam table. Patient appears to be nontoxic. Labs: Urinalysis shows 1+ leukocyte and trace of blood. Is cloudy in appearance. We will send urine for culture. Plan: I suspect patient has UTI. Prescription for cephalexin was sent to the pharmacy. Supportive measures were discussed with the patient and they voiced understanding discharge instructions and agrees to treatment plan. Return precautions reviewed Differential Diagnosis Differential diagnosis: Likely urinary tract infection, ovarian cyst, vaginitis, ruptured ovarian cyst, cystitis and other ( diverticulitis, diverticulosis, constipation, kidney stone, pyelonephritis) Lab Data Labs: Lab Results 07/25/24 Range/Units 18:37 POC Urine Color Yellow POC Urine Clarity Cloudy POC Urine pH 6.0 POC Ur Specif [place] 1.015 POC Urine Protein Negative (Negative) POC Ur Glucose (UA) Negative (Negative) POC Urine Ketones Negative (Negative) POC Urine Blood Trace (Negative) POC Urine Nitrite Negative (Negative) POC Urine Bilirubin Negative (Negative) POC Urine Urobilinogen 0.2 POC U Leukocyte Esteras 1+ (Negative) Discharge Plan Discharge Clinical Impression: UTI (urinary tract infection) Qualifiers: Urinary tract infection type: acute cystitis Hematuria presence: with hematuria Qualified Code(s): N30.01 - Acute cystitis with hematuria Patient Disposition: Home Condition: Stable Instructions: Antibiotic Form, Urinary Tract Infection in Women (ED) Additional Instructions: Urinalysis positive for 1+ bacteria and trace of blood. We will send urine for culture Increase fluids and stay well hydrated Wipe front to back. May use wet wipes. Avoid tub baths If sexually active- pee before and after intercourse. Wear cotton panties Avoid tight clothing up against the genitals Follow up with your PCP in 1 week if symptoms persist. Patient Language: Maltese Prescriptions: New cephalexin 500 mg capsule 500 mg PO Q12H 7 Days Qty: 14 0RF No Action Linzess 72 mcg capsule 72 mcg PO DAILY 90 Days Qty: 90 3RF dicyclomine 10 mg capsule 10 mg PO TID PRN (Reason: abdominal pain) Qty: 90 5RF cetirizine [24Hour Allergy] 10 mg tablet 10 mg PO DAILY epinephrine [EpiPen] 0.3 mg/0.3 mL auto-injector 0.3 ml IM [id number] PRN (Reason: anaphylaxis) Patient Comments: FOR ALLERGY SHOT REACTION levothyroxine 75 mcg capsule 75 mcg PO DAILY Qty: 90 0RF omeprazole 40 mg capsule,delayed release(DR/EC) 40 mg PO DAILY 30 Days Qty: 30 11RF Nexletol 180 mg tablet 180 mg PO DAILY Qty: 90 0RF montelukast [Singulair] 10 mg tablet 10 mg PO DAILY Qty: 90 0RF Follow-up/Referrals: Bhavna Ventura PA-C [Primary Care Provider] - Time of Disposition: 18:43 Quality NIHSS Nursing Documentation ED NIHSS nursing documentation: reviewed/agree
--- OUTSIDE RECORDS SUMMARY | 2024-07-25 18:25 | XMS_ITS | Encounter Summary ---
Author Organization [facility] Address [address] [place] [address] Care Team Providers Care Heel Attacher Name Role Phone Ryan Metz MD Primary Care Provider [phone] Bhavna Ventura PA-C Primary Care Provider [phone]- [phone] Petey York MD Primary Care Provider [phone] [phone] Catalino Koch MD Unavailable Bhavna Ventura PA-C Primary Care Provider [phone]- [phone] Encounter Details Date Type Department Care Team (Latest Contact Info) Description 01/16/2018 Abstract [facility] , Franco Santos MD [...] documented as of this encounter Care Teams Heel Attacher Relationship Specialty Start Date End Date Ryan Metz MD [address] [place] [address] PCP - General INTERNAL MEDICINE 10/27/18 12/23/21 Bhavna Ventura PA-C [address] [place] [address] [address] [place] [address] PCP - General PHYSICIAN CLOTH BOLT BANDER 12/24/21 01/16/23 Petey York MD [address] [place] [address] PCP - General FAMILY PRACTICE 01/17/23 05/26/24 Bhavna Ventura PA-C [address] [place] [address] [address] [place] [address] PCP - General PHYSICIAN CLOTH BOLT BANDER 05/27/24 Catalino Koch MD [address] [facility] [address] [facility] [address] [place] [address] GENERAL SURGERY 05/27/24 documented as of this encounter
--- OUTSIDE RECORDS SUMMARY | 2024-07-25 18:25 | XMS_ITS | Encounter Summary ---
Author Organization [facility] Address [address] [place] [address] Care Team Providers Care Pi/Senior Research Associate Name Role Phone Petey York MD Primary Care Provider [phone] Catalino Koch MD Unavailable Bhavna VenturaC Primary Care Provider +1- [phone] Encounter Details Date Type Department Care Team (Late st Contact Info) Description 10/13/2023 [employer] Message Enc [facility] Medical Group Family & Internal Medicine [facility] [id number] [place] [address] Rebekah Riley PA [address] [place] [address] Antibiotics/yeast Social History Tobacco Use Types [...] on filedocumented in this encounter Care Teams Pi/Senior Research Associate Relationship Specialty Start Date End Date Petey York MD [facility] [place] [address] PCP - General FAMILY PRACTICE 01/17/23 05/26/24 Bhavna Ventura PA-C [address] [place], [place] [address] [place] [address] PCP - General PHYSICIAN HYDRO TECHNICIAN 05/27/24 Catalino Koch MD [address] [facility] [address] [place] [address] GENERAL SURGERY 05/27/24 documented as of this encounter
--- OUTSIDE RECORDS SUMMARY | 2024-07-25 18:25 | XMS_ITS | Patient Health Record ---
Author Organization [facility] [place] ([address]) Address [address] [place] [address] Care Team Providers Care Party Coordinator Name Role Phone Chela PRAJAPATI, Dr Angelo Primary Care Provider Nita Naqvi Unavailable [phone] [facility], Provider Unavailable Unavailab le Allergies Allergen (clinical drug ingredient) Drug/Non Drug Allergy documented on EMR Reaction Allergy Type Onset Date Status sulfamethoxazole / trimethoprim Bactrim rash Drug Allergy Active carboplatin CARBOplatin unknown reaction Drug Allergy Active acetaminophen / oxycodone Percocet Vomiting Drug Allergy Active Reason For Referral No Information Medications Medication SIG (Take, Route, Frequency, Duration) Notes Start Date End Date Status Levothyroxine Sodium 75 MCG 1 tab(s) orally once a day Active Montelukast Sodium 10 MG 1 tab(s) orally once a day Active Cetirizine HCl 10 MG 1 tab(s) orally once a day for 30 days Active Fluticasone Propionate 50 MCG/ACT 2 spray(s) in each nostril once a day for 30 days Active CETIRIZINE 10 mg 1 tab(s) orally once a day for 30 days Active Vyfemla 35 MCG-0.4 MG 1 TAB(S) ORALLY ONCE A DAY *Please review and pick correct strength-formula tion from Medispan options. If intended option is not shown, discontinue and re-order from Quick Search* Not-Taking Famotidine 20 MG 1 tablet Orally Twice a day for 30 days 04/01/2024 Active EpiPen 2-Addison 0.3 mg as directed intramuscularly once for 30 days Active Medrol 4 MG as directed Orally daily for 6 days 04/01/2024 Not-Taking Cetirizine HCl 10 MG 1 tablet Orally Twice a day for 30 days 04/01/2024 Active EPIPEN 2-ADDISON 0.3 mg as directed intramuscularly once for 30 days Active Omeprazole 40 MG Oral for 30 Days Active Linzess 72 MCG Oral for 30 Days Active Social History Tobacco Use: Social History Observation Description Date Details (start date - stop date) Never Smoker NA - NA Sex Assigned At : Social History Observation Description Sex Assigned At Female Tobacco Control (Standard) Question Answer Notes Tobacco use: Nonsmoker Problems Problem Type SNOMED Code ICD Code Onset Dates Problem Status W/U Status Risk Notes Problem Chronic allergic conjunctivitis (27904030) Other chronic allergic conjunctivitis (H10.45) Active confirmed Problem Allergic rhinitis caused by pollen (disorder) (14501037) Allergic rhinitis due to pollen (J30.1) Active confirmed Problem Allergic rhinitis (81667645) Other allergic rhinitis (J30.89) Active confirmed Problem Allergic rhinitis caused by animal hair and dander (215421148593182) Allergic rhinitis due to animal (cat) (dog) hair and dander (J30.81) Active confirmed Vital Signs Oximetry 99 % 04/29/2024 Blood pressure diastolic 74 mm Hg 04/29/2024 Height 64 in 04/29/2024 Blood pressure systolic 108 mm Hg 04/29/2024 Weight 212.4 lbs 04/29/2024 BMI 36.45 kg/m2 04/29/2024 Encounters Encounter Location Date Provider Diagnosis [address] [place] [address] 08/26/2023 Provider [facility] Allergic rhinitis due to pollen J30.1 BERTHA [place] [address] 07/31/2023 Nita Conrad Allergic rhinitis du e to pollen J30.1 ; Allergic rhinitis due to animal (cat) (dog) hair and dander J30.81 ; Other allergic rhinitis J30.89 and Other chronic allergic conjunctivitis H10.45 BERTHA [place] [address] 08/10/2023 Nita [place] Allergic rhinitis du e to pollen J30.1 ; Other allergic rhinitis J30.89 ; Allergic rhinitis due to animal (cat) (dog) hair and dander J30.81 and Other chronic allergic conjunctivitis H10.45 [facility] [place] [address] [facility] [place] [address] 08/24/2023 Nita [place] Allergic rhinitis du e to pollen J30.1 ; Other allergic rhinitis J30.89 ; Allergic rhinitis due to animal (cat) (dog) hair and dander J30.81 and Other chronic allergic conjunctivitis H10.45 [facility] [place] [address] [facility] [place] [address] 08/29/2023 Nita [place] Allergic rhinitis du e to pollen J30.1 ; Other allergic rhinitis J30.89 ; Allergic rhinitis due to animal (cat) (dog) hair and dander J30.81 and Other chronic allergic conjunctivitis H10.45 [facility] [place] [address] [place] [address] 09/04/2023 Nita [place] Allergic rhinitis du e to pollen J30.1 ; Other allergic rhinitis J30.89 ; Allergic rhinitis due to animal (cat) (dog) hair and dander J30.81 and Other chronic allergic conjunctivitis H10.45 [facility] [place] [address] [facility] [place] [address] 09/13/2023 Nita [place] Allergic rhinitis du e to pollen J30.1 ; Other allergic rhinitis J30.89 ; Allergic rhinitis due to animal (cat) (dog) hair and dander J30.81 and Other chronic allergic conjunctivitis H10.45 [facility] [place] [address] [place] [address] 09/20/2023 Nita [place] Allergic rhinitis du e to pollen J30.1 ; Other allergic rhinitis J30.89 ; Allergic rhinitis due to animal (cat) (dog) hair and dander J30.81 and Other chronic allergic conjunctivitis H10.45 [facility] [place] [address] [place] [address] 09/28/2023 Nita [place] Allergic rhinitis du e to pollen J30.1 ; Other allergic rhinitis J30.89 ; Allergic rhinitis due to animal (cat) (dog) hair and dander J30.81 and Other chronic allergic conjunctivitis H10.45 [facility] [place] [address] [place] [address] 10/03/2023 Nita Houston Allergic rhinitis du e to pollen J30.1 ; Other allergic rhinitis J30.89 ; Allergic rhinitis due to animal (cat) (dog) hair and dander J30.81 and Other chronic allergic conjunctivitis H10.45 [facility] [place] [address] [place] [address] 10/17/2023 Nita Houston Allergic rhinitis du e to pollen J30.1 ; Other allergic rhinitis J30.89 ; Allergic rhinitis due to animal (cat) (dog) hair and dander J30.81 and Other chronic allergic conjunctivitis H10.45 [facility] [place] [address] [place] [address] 10/24/2023 Nita [place] Allergic rhinitis du e to pollen J30.1 ; Other allergic rhinitis J30.89 ; Allergic rhinitis due to animal (cat) (dog) hair and dander J30.81 and Other chronic allergic conjunctivitis H10.45 [facility] [place] [address] [place] [address] 10/31/2023 Nita [place] Allergic rhinitis du e to pollen J30.1 ; Other allergic rhinitis J30.89 ; Allergic rhinitis due to animal (cat) (dog) hair and dander J30.81 and Other chronic allergic conjunctivitis H10.45 [facility] [place] [address] [place] [address] 11/07/2023 Nita [place] Allergic rhinitis du e to pollen J30.1 ; Other allergic rhinitis J30.89 ; Allergic rhinitis due to animal (cat) (dog) hair and dander J30.81 and Other chronic allergic conjunctivitis H10.45 [facility] [place] [address] [place] [address] 11/14/2023 Nita [place] Allergic rhinitis du e to pollen J30.1 ; Other allergic rhinitis J30.89 ; Allergic rhinitis due to animal (cat) (dog) hair and dander J30.81 and Other [facility]ivitis H10.45 [facility] [address] [place] [address] 11/22/2023 Nita [place] Allergic rhinitis du e to pollen J30.1 ; Other allergic rhinitis J30.89 ; Allergic rhinitis due to animal (cat) (dog) hair and dander J30.81 and Other chronic allergic conjunctivitis H10.45 [facility] [address] [place] [address] 12/05/2023 Nita Houston Allergic rhinitis du e to pollen J30.1 ; Other allergic rhinitis J30.89 ; Allergic rhinitis due to animal (cat) (dog) hair and dander J30.81 and Other chronic allergic conjunctivitis H10.45 [facility] [address] [place] [address] 12/12/2023 Nita Houston Allergic rhinitis du e to pollen J30.1 ; Other allergic rhinitis J30.89 ; Allergic rhinitis due to animal (cat) (dog) hair and dander J30.81 and Other chronic allergic conjunctivitis H10.45 [facility] [address] [place] [address] 12/19/2023 Nita Houston Allergic rhinitis du e to pollen J30.1 ; Other allergic rhinitis J30.89 ; Allergic rhinitis due to animal (cat) (dog) hair and dander J30.81 and Other chronic allergic conjunctivitis H10.45 [facility] [address] [place] [address] 12/26/2023 Nita Houston Allergic rhinitis du e to pollen J30.1 ; Other allergic rhinitis J30.89 ; Allergic rhinitis due to animal (cat) (dog) hair and dander J30.81 and Other chronic allergic conjunctivitis H10.45 [facility] [place] [address] [place] [address] 01/02/2024 Nita Houston Allergic rhinitis du e to pollen J30.1 ; Other allergic rhinitis J30.89 ; Allergic rhinitis due to animal (cat) (dog) hair and dander J30.81 and Other chronic allergic conjunctivitis H10.45 [facility] [address] [place] [address] 01/11/2024 Nita Houston Allergic rhinitis du e to pollen J30.1 ; Other allergic rhinitis J30.89 ; Allergic rhinitis due to animal (cat) (dog) hair and dander J30.81 and Other chronic allergic conjunctivitis H10.45 [facility] [place] [address] [place] [address] 01/17/2024 Nita Houston Allergic rhinitis du e to pollen J30.1 ; Other allergic rhinitis J30.89 ; Allergic rhinitis due to animal (cat) (dog) hair and dander J30.81 and Other chronic allergic conjunctivitis H10.45 [facility] [place] [address] [place] [address] 01/30/2024 Nita Houston Allergic rhinitis du e to pollen J30.1 ; Other allergic rhinitis J30.89 ; Allergic rhinitis due to animal (cat) (dog) hair and dander J30.81 and Other chronic allergic conjunctivitis H10.45 [facility] [place] [address] [place] [address] 02/05/2024 Nita Houston Allergic rhinitis du e to pollen J30.1 ; Other allergic rhinitis J30.89 ; Allergic rhinitis due to animal (cat) (dog) hair and dander J30.81 and Other chronic allergic conjunctivitis H10.45 [facility] [place] [address] [place] [address] 02/12/2024 Nita Houston Allergic rhinitis du e to pollen J30.1 ; Other allergic rhinitis J30.89 ; Allergic rhinitis due to animal (cat) (dog) hair and dander J30.81 and Other chronic allergic conjunctivitis H10.45 [facility] [place] [address] [place] [address] 02/20/2024 Nita Houston Allergic rhinitis du e to pollen J30.1 ; Other allergic rhinitis J30.89 ; Allergic rhinitis due to animal (cat) (dog) hair and dander J30.81 and Other chronic allergic conjunctivitis H10.45 [facility] [address] [place] [address] 02/27/2024 Nita Houston Allergic rhinitis du e to pollen J30.1 ; Other allergic rhinitis J30.89 ; Allergic rhinitis due to animal (cat) (dog) hair and dander J30.81 and Other chronic allergic conjunctivitis H10.45 [facility] [place] [address] [place] [address] 03/11/2024 Nita Houston Allergic rhinitis du e to pollen J30.1 ; Other allergic rhinitis J30.89 ; Allergic rhinitis due to animal (cat) (dog) hair and dander J30.81 and Other chronic allergic conjunctivitis H10.45 [facility] [address] [place] [address] 03/27/2024 Nita Houston Allergic rhinitis du e to pollen J30.1 ; Other allergic rhinitis J30.89 ; Allergic rhinitis due to animal (cat) (dog) hair and dander J30.81 and Other chronic allergic conjunctivitis H10.45 [facility] [address] [place] [address] 04/01/2024 Nita [place] Allergic rhinitis du e to pollen J30.1 ; Dermatitis, unspecified L30.9 ; Shortness of breath R06.02 ; Allergic rhinitis due to animal (cat) (dog) hair and dander J30.81 ; Other allergic rhinitis J30.89 and Other chronic allergic conjunctivitis H10.45 [facility] [address] [place] [address] 04/10/2024 Nita Houston Allergic rhinitis du e to pollen J30.1 ; Other allergic rhinitis J30.89 ; Allergic rhinitis due to animal (cat) (dog) hair and dander J30.81 and Other chronic allergic conjunctivitis H10.45 [facility] [place] [address] [place] [address] 04/15/2024 Nita Conrad Allergic rhinitis du e to pollen J30.1 ; Other allergic rhinitis J30.89 ; Allergic rhinitis due to animal (cat) (dog) hair and dander J30.81 and Other chronic allergic conjunctivitis H10.45 [facility] [place] [address] [place] [address] 04/22/2024 Nita Carvajalm Allergic rhinitis du e to pollen J30.1 ; Other allergic rhinitis J30.89 ; Allergic rhinitis due to animal (cat) (dog) hair and dander J30.81 and Other chronic allergic conjunctivitis H10.45 [facility] [place] [address] [place] [address] 04/29/2024 Nitajim Conrad Allergic rhinitis du e to pollen J30.1 ; Dermatitis, unspecified L30.9 ; Shortness of breath R06.02 ; Allergic rhinitis due to animal (cat) (dog) hair and dander J30.81 ; Other allergic rhinitis J30.89 and Other chronic allergic conjunctivitis H10.45 [facility] [place] [address] [place] [address] 05/15/2024 Nita Conrad Allergic rhinitis du e to pollen J30.1 ; Other allergic rhinitis J30.89 ; Allergic rhinitis due to animal (cat) (dog) hair and dander J30.81 and Other chronic allergic conjunctivitis H10.45 [facility] [place] [address] [facility] [place] [address] 06/13/2024 Nita Carvajalm Allergic rhinitis du e to pollen J30.1 ; Other allergic rhinitis J30.89 ; Allergic rhinitis due to animal (cat) (dog) hair and dander J30.81 and Other chronic allergic conjunctivitis H10.45 [facility] [place] [address] [place] [address] 07/04/2024 Nita [place] Allergic rhinitis du e to pollen J30.1 ; Other allergic rhinitis J30.89 ; Allergic rhinitis due to animal (cat) (dog) hair and dander J30.81 and Other chronic allergic conjunctivitis H10.45 [facility] [place] [address] [place] [address] 07/09/2024 Nita Conrad Allergic rhinitis du e to pollen J30.1 ; Other allergic rhinitis J30.89 ; Allergic rhinitis due to animal (cat) (dog) hair and dander J30.81 and Other chronic allergic conjunctivitis H10.45 [facility] [place] [address] [facility] [place] [address] 07/16/2024 Nita Conrad Allergic rhinitis du e to pollen J30.1 ; Other allergic rhinitis J30.89 ; Allergic rhinitis due to animal (cat) (dog) hair and dander J30.81 and Other chronic allergic conjunctivitis H10.45 [facility] [place] [address] [place] [address] 08/01/2023 Nita Carvajalm [facility] [place] [address] [place] [address] 08/03/2023 Nita Carvajalm [facility] [place] [address] [place] [address] 04/01/2024 Nita [place] [facility] [place] [address] [place] [address] 08/02/2023 Nita Carvajalm [facility] [place] [address] [place] [address] 08/02/2023 Nita Carvajalm [facility] [place] [address] [place] [address] 08/02/2023 Nita Houston [facility] - [place] [address] [place] [address] 06/19/2024 Nita Conrad Assessments Encounter Date Diagnosis (ICD Code) Assessment Notes Treatment Notes Treatment Clinical Notes Section Notes 07/31/2023 Allergic rhinitis due to pollen (ICD-10 [...] 05/15/2024 Other allergic rhinitis (ICD-10 - J30.89) 06/13/2024 Allergic rhinitis due to pollen (ICD-10 - J30.1) 06/13/2024 Other allergic rhinitis (ICD-10 - J30.89) 07/04/2024 Allergic rhinitis due to pollen (ICD-10 - J30.1) 07/04/2024 Other allergic rhinitis (ICD-10 - J30.89) 07/09/2024 Allergic rhinitis due to pollen (ICD-10 - J30.1) 07/09/2024 Other allergic rhinitis (ICD-10 - J30.89) 07/16/2024 Allergic rhinitis due to pollen (ICD-10 - J30.1) 07/16/2024 Other allergic rhinitis (ICD-10 - J30.89) 07/16/2024 Allergic rhinitis due to animal (cat) (dog) hair and dander (ICD-10 - J30.81) 07/09/2024 Allergic rhinitis due to animal (cat) (dog) hair and dander (ICD-10 - J30.81) 07/04/2024 Allergic rhinitis due to animal (cat) (dog) hair and dander (ICD-10 - J30.81) 06/13/2024 Allergic rhinitis due to animal (cat) (dog) hair and dander (ICD-10 - J30.81) 05/15/2024 Allergic rhinitis due to animal (cat) [...] 07/31/2023 Other allergic rhinitis (ICD-10 - J30.89) 07/31/2023 Other chronic allergic conjunctivitis (ICD-10 - H10.45) Given ocular signs and symptoms I encouraged allergy avoidance measures and meds as above. If symptoms persist, consider adding additional medications including intraocular antihistamine/mas t cell stabilizer, PRN 08/10/2023 Other chronic allergic conjunctivitis (ICD-10 - H10.45) 08/24/2023 Other chronic allergic conjunctivitis (ICD-10 - [...] Other chronic allergic conjunctivitis (ICD-10 - H10.45) 06/13/2024 Other chronic allergic conjunctivitis (ICD-10 - H10.45) 07/04/2024 Other chronic allergic conjunctivitis (ICD-10 - H10.45) 07/09/2024 Other chronic allergic conjunctivitis (ICD-10 - H10.45) 07/16/2024 Other chronic allergic conjunctivitis (ICD-10 - H10.45) 04/29/2024 Other allergic rhinitis (ICD-10 - J30.89) Follow allergen avoidance, meds and continue SCIT as an adjunctive treatment to current regimen 04/01/2024 Other allergic rhinitis (ICD-10 - J30.89) Follow allergen avoidance, meds and continue SCIT as an adjunctive treatment to current regimen 04/01/2024 Other chronic allergic conjunctivitis (ICD-10 - [...] Treatment Next Appt Details Provider Name:Nita felton, 07/29/2024 05:00:00 PM, [address] [place], [address], Provider Name:Nita felton, 08/12/2024 05:00:00 PM, [address] [place], [address], Provider Name:Nita felton, 08/26/2024 05:00:00 PM, [address] [place], [address], Insurance Providers Payer Name Payer Address Payer Phone Subscriber Number Group Number Insured Name Patient Relationship to Insured Coverage Start Date Coverage End Date [employer] [address] [address] [place] [phone] [id number] Latrice Tate Self - patient is the insured Medical (General) History Medical History History ICD Code Hypothyroidism Cancer Surgical History Surgery Date(Month/Year) Lumpectomy 02/10/2022 port removal 07/14/2023
--- OUTSIDE RECORDS SUMMARY | 2024-07-25 18:25 | XMS_ITS | Continuity of Care Document ---
Author Organization [employer] Address [address] [place] [address] [address] [place] [address] Phone Care Team Providers Care Telephone Directory Deliverer Name Role Phone Donald JAE Marla Unavailable [...] Date Provider Providers Copied on Encounter [facility] [address], [place], [place], [address], [place] tel:[phone] [facility] No Information Donald Gutiérrez. . Referring Provider: Delfino Cesar Laura [address], [place], [address]. tel:[phone] [place] [address], [address] [place], [place] [address], [place], [place], [id number], tel:[phone] [facility] No Information Donald Gutiérrez. . Referring Provider: Delfino Cesar Laura [address], [place], [address]. tel:[phone] [place] [address] [place], [place] [address], [place], [place], [address], tel:[phone] [facility] No Information Arleth Barker. . Referring Provider: Delfino Cesar [facility]lene [facility] [address], [place], [address]. tel:[phone] [place] [address] [place], [place] [address], [place], [place], [address], tel:[phone] [facility] No Information Arleth Barker. . Referring Provider: Delfino Cesar BrigetteKaylene [address], [place], [address]. tel:[phone] [place] [address] [place], [place] [address], [place], [place], [address], tel:[phone] [facility] No Information Arlethdoreen Barker. . Referring Provider: Delfino Cesar BrigetteKaylene [address], [place], [address]. tel:[phone] [facility] [address] [place], [place] [address], [place], [place], [address], tel:[phone] [facility] No Information Arleth Barker. . Referring Provider: Delfino Cesar BrigetteKaylene [address], [place], [address]. tel:[phone] [facility], [place], [place], [address], [place] tel:[phone] [facility] No Information Arleth Mj. . Referring Provider: Delfino Cesar BrigetteKaylene [address], [place], [address]. tel:[phone] [place] [address] [address], [place], [place], [address], [place] tel:[phone] [facility] No Information Arleth Mj. . Referring Provider: Laura Albright [address], [place], [address]. tel:[phone] [place] [address], [place], [place], [address], tel:[phone] [facility] No Information Arleth Mj. . Referring Provider: Laura Albright [address], [place], [address]. tel:[phone] [place], [place] [address], [place], [place], [address], tel:[phone] [facility] No Information Arleth Mj. . Referring Provider: Laura Albright [address], [place], [address]. tel:[phone] [facility], [place], [place], [address], [place] tel:[phone] [facility] No Information Arleth Mj. . Referring Provider: Delfino Cesar BrigetteKaylene [address], [place], [address]. tel:[phone] [facility], [place], [place], [address], [place] tel:[phone] [facility] No Information Arleth Barker. . Referring Provider: Delfino Cesar, Laura [address], [place], [address]. tel:[phone] [place], [place] [address], [place], [place], [address], tel:[phone] [facility] No Information Arleth Barker. . Referring Provider: Delfino Cesar Laura [address], [place], [address]. tel:[phone] [place] [address] [address], [place], [place], [address], [place] tel:[phone] [facility] No Information Arlethalex Barker. . Referring Provider: Delfino Cesar BrigetteKaylene [address], [place], [address]. tel:[phone] [place], [place] [address], [place], [place], [address], tel:[phone] [facility] No Information Arleth Barker. . Referring Provider: Delfino Cesar BrigetteKaylene [address], [place], [address]. tel:[phone] [place] [address] [place], [place] [address], [place], [place], [address], tel:[phone] [facility] No Information Arleth Barker. . Referring Provider: Delfino Cesar BrigetteKaylene [address], [place], [address]. tel:[phone] [place], [place] [address], [place], [place], [address], tel:[phone] [facility] No Information Arleth Barker. . Referring Provider: Delfino Cesar BrigetteKaylene [address], [place], [address]. tel:[phone] [place], [place] [address], [place], [place], [address], [place] tel:[phone] [facility] No Information Arleth Barker. . Referring Provider: Delfino Cesar, Laura [facility] [address], [place], [address]. tel:[phone] [place] [address] [address], [place], [place], [address], tel:[phone] [facility] No Information Arleth Barker. . Referring Provider: Delfino Cesar Laura [facility] [address], [place], [address]. tel:[phone] [place] [address], [address], [place], [place], [address], tel:[phone] [facility] No Information Arleth Barker. . Referring Provider: Delfino Cesar BrigetteKaylene [facility] [address], [place], [address]. tel:[phone] [place] [address] [address], [place], [place], [address], tel:[phone] [facility] No Information Arleth Barker. . Referring Provider: Delfino Cesar BrigetteKaylene [facility] [address], [place], [address]. tel:[phone] [place] [address] [address], [place], [place], [address], tel:[phone] [facility] No Information Arleth Barker. . Referring Provider: Delfino Cesar Brig[facility]Kaylene [facility] [address], [place], [address]. tel:[phone] [place] [address], [place], [place], [address], tel:[phone] [facility] No Information Arleth Barker. . Referring Provider: Delfino Cesar, [address] [facility] [address], [place], [address]. tel:[phone] Family History Family Member Type Diagnosis Age At Onset No Information Payers Payer name Insurance type Covered constitution party ID Renan caba(annie Rey [id number] Geena GALEANO LI 00 Social History Type [...]
--- OUTSIDE RECORDS SUMMARY | 2024-07-25 18:25 | XMS_ITS | Encounter Summary ---
Author Organization [facility] Address [address] [place] [address] Care Team Providers Care Human Resources Admin Name Role Phone Ryan Metz MD Primary Care Provider Encounter Details Date Type Department Care Team (Late st Contact Info) Description 12/14/2023 Lab Requisition [facility] - DermPath Lab [address] [facility], [place] [id number] Fina Cueto MD [address] [facility] [address] [address] Social History Tobacco Use Types Packs/Day Years Used Date Smoking Tobacco: Never Smokeless Tobacco: Never Alcohol Use Standard Drinks/Week Comments Yes 0 (1 standard drink = 0.6 oz pur e alcohol) 2-3 drinks per month Comments No Sex and Gender Information Value Date Recorded Sex Assigned at Not on file Legal Sex Female 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 Answer Date of Assessment Author No 12/14/2017 2:32 PM CDT Christina Prescott RN * Is person blind or have serious difficulty seeing? Answer Date of Assessment Author No 12/14/2017 2:32 PM Christina Lerner RN * Does person have serious difficulty walking/climbing stairs? Answer Date of Assessment Author No 12/14/2017 2:32 PM CDT Christina Prescott RN * Does person have difficulty dressing/bathing? Answer Date of Assessment Author No 12/14/2017 2:32 PM CDT Christina Prescott RN * Does person have difficulty doing errands alone? Answer Date of Assessment Author No 12/14/2017 2:32 PM CDT Christina Prescott RN documented as of this encounter Mental Status * Does person have difficulty concentrating/remembering/making decisions? Answer Entry Date Author No 12/14/2017 2:32 PM CDT Christina Prescott RN documented in this encounter Plan of Treatment Not on file documented as of this encounter Procedures Procedure Name Priority Date/Time Associated Diagnosis Comments DERMATOPATHOLOGY Routine 12/14/2023 12:0 0 AM CDT documented in this encounter Results * DERMATOPATHOLOGY (12/14/2023 12:00 AM CDT) Case Report Dermatopathology Report Case: [id number] Authorizing Provider: Fina Cueto MD Collected: 12/14/2023 12:00 AM Ordering Location: [facility] - Received: 12/18/2023 08:49 AM [...] The specimen is serially sectioned and a credit representative section is submitted in cassette 1. [...] by the Dermatopathology Laboratory at [facility], directed by Dr. Tigre Fenton. These tests need not be, and therefore are not, approved by the [place] Food and Drug Administration. The tests are used for clinical purposes. Billing Codes Specimen Charges Stain Charges 19141 1 82563 25856 37201 41177 09431 07085 1 1 1 1 1 1 4 3:57 PM CDT DERMATOPATHOLOGY LABORATORY Embedded Images 4 3:57 PM CDT DERMATOPATHOLOGY LABORATORY Pathology/Cytolog y TISSUE SPECIMEN FROM SKIN / Unknown 12/14/2023 12/18/2023 8:49 AM CDT Fina Cueto MD LAB - PATHOLOGY/CYTOLOGY AZALEA GUPTA Final Result DERMATOPATHOLOGY LABORATORY [facility] - Department of Dermatology [address], [address] [phone] documented in this encounter Visit Diagnoses Not on filedocumented in this encounter Care Teams Human Resources Admin Relationship Specialty Start Date End Date Ryan Metz MD [address] [place] [address] PCP - General 05/15/17 documented as of this encounter
--- OUTSIDE RECORDS SUMMARY | 2024-07-25 18:25 | XMS_ITS ---
Author Organization [facility] Address [address] [place] [address] Care Team Providers Care Car Lot Attendant Name Role Phone Uziel Teofilo Jones MD Unavailable [phone] Arian Eaton MD Unavailable [phone] Nathan Fish MD Unavailable [phone] Shara Monreal MD Unavailable [phone] Malorie Malcolm NP Unavailable Petey [place] MD Primary Care Provider [phone] Active Problems Problem Noted Date Diagnosed Date Breast pain, right 06/27/2022 Invasive ductal carcinoma of breast, female, rig ht 07/30/2021 Encounter for fitting and adjustment of vascular catheter 07/30/2021 Overview (07/30/2021): Added automatically from request for surgery [id number] Malignant neoplasm 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, estrogen receptor negative 07/23/2021 Cancer Staging:Clinical stage from 07/20/2021:Stage IB(cT1c, cN0, cM0, G3, ER-, ID-, HER2-) - Signed by Arian Eaton MD on 07/30/2021 Pathologic stage from 02/10/2022:No Stage Recommended(ypT0, pN0(sn), cM0, GX, ER- , ID-, HER2-) - Signed by Arian Eaton MD on 03/09/2022 Endometriosis 10/22/2019 Overview (10/22/2019): Added automatically from request for surgery [id number] Pelvic and perineal pain 10/22/2019 Overview (10/22/2019): Added automatically from request for surgery [id number] Persistent proteinuria 10/25/2018 Recurrent UTI 10/25/2018 Asymptomatic [...] from the original note were not included. [facility] [facility] [address] This Survivorship Care Plan is a cancer [...] Information: Primary Care Physician Petey York MD [phone] Keanu Fish [phone] Arian Eaton [phone] Teofilo Triplett [phone] Plastic Surgeon Other Providers Treatment Summary Cancer [...] Stage IB (cT1c, cN0, cM0, G3, ER-, ID-, HER2-) - Signed by Arian Eaton MD on 07/30/2021 - Pathologic stage from 02/10/2022: No Stage Recommended (ypT0, pN0(sn), cM0, GX, ER-, ID-, HER2-) -Signed by Arian Eaton MD on [...] equivalent: 238.218 mg/m2 (480 mg) Research Studies [id number] in REsults of Immune Checkpoint Inhibitor Tx (DiRECT):Prospective Study of Cancer Survivors Tx'd w anti-PD-1/antiPD-L1 Immunotherapy in a Community Oncology Setting Status On study Active Start Date 08/13/21 NCT [id number] Persistent symptoms or side effects that have [...] breast cancer could run in the family: Anabaptism heritage History of ovarian cancer in the [...] monitoring Every 3 months while on Herceptin RE DYE HAND: No care cylinder steamer to display Pap/pelvic exam (woman only) As [...] Help learning to eat healthier, call the bottle caser at: [facility] . Have an active lifestyle, strive [...] Cancer.Net--http://www.cancer.net/survivorship Livestrong--http://www.livestrong.org/ Livestrong Care Plan--http://www.livestrongcareplan.org/ National Cancer [place]--http://www.cancer.gov/cancertopics/factsheet/therapy/followup National Cancer [place] Facing Forward: Life After Cancer Treatment--http://www.cancer.gov/cancertopics/coping/vdxm-jxtig-jjvkvpnrt National Coalition for Cancer Survivorship--http://www.canceradvocacy.org/ National Comprehensive Cancer Network-http://www.nccn.org/patients/resources NCCS Cancer Survival Toolbox-- http://www.canceradvocacy.org/toolbox/ CancerCare--http://www.cancercare.org/ Healthcare.gov (insurance marketplace)-- https://www.healthcare.gov/ Cancer and Careers--http://www.cancerandcareers.org/en [place] Cancer Society:The Survivorship Center--http://www.cancer.org/survivorshipcenter Cancer Support Community- http://www.cancersupportcommunity.org/ Cancer Rehabilitation--www.[facility]/rehab Resolved Problems Problem Noted Date Diagnosed Date Resolved Date Post-operative state 02/22/2022 024
--- OUTSIDE RECORDS SUMMARY | 2024-07-25 18:25 | XMS_ITS | Referral Summary ---
Author Organization [facility] Address [address] [place] [phone] Care Team Providers Care Occupational Psychologist Name Role Phone Uziel Teofilo Jones MD Unavailable Arian Eaton MD Unavailable Nathan Fish MD Unavailable Shara Monreal MD Unavailable Malorie Malcolm NP Unavailable [phone] Petey York MD Primary Care Provider [phone] Encounters Date Type Department Care Team Description 07/12/2024 Telephone [facility] [address] [place] [phone] Nathan Fish MD 05/06/2024 Orders Only [facility] [address] [place] [phone] Nathan Fish MD Invasive ductal carcinoma of breast, female, right (HCC) (Primary Dx); Malignant 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, estrogen receptor negative (HCC) 05/06/2024 Documentation [facility] [address] [place] [phone] Inessa Heart RC 05/06/2024 2:00 PM LIME VAT TENDER Office Visit [facility] Radiation Oncology [address] [place] [phone] Arian Eaton MD Malignant 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, estrogen receptor negative (HCC) (Primary Dx) 05/06/2024 2:45 PM LIME VAT TENDER Office Visit [facility] [address] [place] [phone] Nathan Fish MD Malignant 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, estrogen receptor negative (HCC) (Primary Dx) from Last 3 Months Allergies Active Allergy Reactions Criticality Noted Date Comments Sulfamethoxazole-Trimetho prim Unknown 08/16/2023 Carboplatin Hives,Itching,Swell ing,Rash,Flushing (skin) High 09/24/2021 Swelling in hands, acid reflux Doxycycline Nausea & Vomiting Low 12/13/2017 Nitrofurantoin Anxiety,Itching,Julius h High 10/27/2018 Oxycodone Vomiting Low 10/20/2021 Oxycodone-Acetaminophen Nausea & Vomiting Low 12/31 Rosuvastatin Rash Medium 07/14/2023 Medications ALPRAZolam (XANAX) 0.25 mg tabletIndicat ions:anxiety Take 1 tablet (0.25 mg total) by mouth as needed for anxiety 020 Active bempedoic acid (Nexletol) 180 mg tablet Take 180 mg by mouth daily Active cetirizine (ZyrTEC) 10 mg tablet daily Active EpiPen 2-Laurent 0.3 mg/0.3 mL auto-injectio n syringe as directed intramuscularly once for 30 days Active montelukast (SINGULAIR) 10 mg tablet Take 1 tablet (10 mg total) by mouth daily 024 Active Linzess 72 mcg capsule Take 1 capsule (72 mcg total) by mouth daily Active omeprazole (PriLOSEC) 40 mg capsule Take 1 capsule (40 mg total) by mouth daily 025 Active levothyroxine (SYNTHROID) 75 mcg tablet TAKE 1 TABLET BY MOUTH EVERY MORNING BEFORE BREAKFAST 90 tablet 1 025 Active levothyroxine (SYNTHROID) 75 mcg tablet TAKE 1 TABLET(75 MCG) BY MOUTH BRICKMASON CONTRACTOR BEFORE BREAKFAST 90 tablet 1 024 2024 Discontinued Active Problems Problem Noted Date Diagnosed Date Breast pain, right 06/27/2022 Invasive ductal carcinoma of breast, female, rig ht 07/30/2021 Encounter for fitting and adjustment of vascular catheter 07/30/2021 Overview (07/30/2021): Added automatically from request for surgery [id number] Malignant neoplasm 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, estrogen receptor negative 07/23/2021 Cancer Staging:Clinical stage from 07/20/2021:Stage IB(cT1c, cN0, cM0, G3, ER-, PA-, HER2-) - Signed by Arian Eaton MD on 07/30/2021 Pathologic stage from 02/10/2022:No Stage Recommended(ypT0, pN0(sn), cM0, GX, ER- , PA-, HER2-) - Signed by Arian Eaton MD on 03/09/2022 Endometriosis 10/22/2019 Overview (10/22/2019): Added automatically from request for surgery [id number] Pelvic and perineal pain 10/22/2019 Overview (10/22/2019): Added automatically from request for surgery [id number] Persistent proteinuria 10/25/2018 Recurrent UTI 10/25/2018 Asymptomatic [...] on file Legal Sex Female 12:06 AM LIME VAT TENDER Gender Identity Not on file Sexual Orientation Not on file Occupation Industry Job Start Date Job End Date [employer] Not on file Not on file Not on file Last Filed Vital Signs Vital Sign Reading Time Taken Comments Blood Pressure 126/82 05/06/2024 1:56 PM LIME VAT TENDER Pulse 98 05/06/2024 1:56 PM LIME VAT TENDER Temperature 36.1 C (97 F) 05/06/2024 2:30 PM LIME VAT TENDER Respiratory Rate 18 05/06/2024 1:56 PM LIME VAT TENDER Oxygen Saturation 100% 05/06/2024 1:56 PM LIME VAT TENDER Inhaled Oxygen Concentration - - Weight 95.7 kg (211 lb) 05/06/2024 2:30 PM LIME VAT TENDER Height 162.6 cm (5' 4 ) 05/06/2024 2:30 PM LIME VAT TENDER Body Mass Index 36.22 05/06/2024 2:30 PM LIME VAT TENDER Plan of Treatment Not on file Medical Devices Implanted Type Area Project Internship Device Identifier Shelf Expiration Date Model / Serial / Lot Tamr Inc Magseed 18ga 7cm Marker Breast Biopsy [id number] Right: Breast [employer] [id number] 12/10/2025 [id number] / / [id number] [employer] Partnership [facility] Trimark Second Marker Breast Biopsy Disposable Trimark Td 2s 13-Mr - [id number] Implanted:Qty: 1 on 02/28/2024 by Consuelo Altman MD at [facility] Right: Breast [employer] Partnership [id number] 06/13/2025 TRIMARK TD 2S 13-MR / / [id number] Explanted Type Area Project Internship Device Identifier Shelf Expiration Date Model / Serial / Lot Bard Access Systems Powerport Isp Mri Airguard 8fr 1 Lumen Attachable Catheter Open Latex Free [id number] - [id number] Implanted:Qty: 1 on 08/06/2021 by Koffi Brandon MD at [facility] Explanted:Qty: 1 Right: Chest [employer] Access Systems 09/09/2022 [id number] / / [id number] Procedures Procedure Name Priority Date/Time Associated Diagnosis Comments PAP AND HPV, REFLEX TO HPV GENOTYPES Routine 09/18/2023 4:32 AM CDT Screening for cervical cancer Screening for human papillomavirus (HPV) DIAGNOSTIC MAMMOGRAM BILATERAL W KVNG Schedule Routine, Read Routine (OP Routine) 07/21/2023 3:32 PM CDT History of breast cancer HEPATITIS C ANTIBODY Routine 07/11/2022 1:00 PM CDT from Last 3 Months or Most Recently Relevant to Health Maintenance Results * (ABNORMAL) Pap and HPV, reflex to [...] (16,18,31,33,35,39,45,51,52,56,58,59,66,68) without differentiation. HPV Genotype Reflex Comment [facility] - 01 Comment:Criteria not met, HP V Genotype not performed. Thin prep 09/18/2023 4:32 AM CDT 09/18/2023 Narrative [facility] - 09/20/2023 2:11 PM CDT Performed at: - [address] [id number] Account Developer: Yumiko Hubbard MD, Phone: [phone] Performed at: - [address] [id number] Account Developer: Yumiko Hubbard MD, Phone: [phone] Specimen Comment: Source.............Cervix;Endocervix Specimen Comment: No. of containers..01 ThinPrep Vial us Shara Monreal MD LAB CYTOLOGY ORDERABLES F inal Result [facility] - 01 LAB PEÑA 02 * Diagnostic Mammogram Bilateral W Kvng (07/21/2023 3:32 PM CDT) Anatomical Region Laterality Modality Breast Bilateral Mammography 07/21/2023 3:39 PM CDT Impressions 07/21/2023 3:39 PM CDT ACR BI-RADS Category 2 - Benign. RECOMMENDATION: 1: Follow-up diagnostic mammogram bilateral in 1 Year 2: COMMENTS: Due1 more diagnostic study in 1 year to continue to evaluate postop stability Thank you for your referral. Electronically signed by: Byron Jimenez MD Narrative 07/21/2023 3:39 PM CDT EXAM: DIAGNOSTIC MAMMOGRAM BILATERAL W KVNG EXAM: Bilateral Diagnostic Mammogram EXAM DATE AND TIME:07/21/2023 3:15 PM HISTORY: Status post right lumpectomy 2021 followed by chemotherapy and radiation. She has a paternal aunts with breast malignancy. COMPARISON: 07/25/2022 and 08/03/2022 TISSUE DENSITY: The breast tissue is heterogeneously dense (51% - 75%) TECHNIQUE- The patient had Tomosynthesis examination. Bilateral 3D Tomosynthesis technology was utilized and performed in the CC and MLO projections with bilateral 2D synthesized and standard CC and MLO views. CAD (computer aided detection) was also utilized for complete analysis. / FINDINGS- stable postop changes on the right. No new dominant masses clustered calcification of the changes suggestive of malignancy. ASSESSMENT: There is no evidence of malignancy. Nathan Fish MD IMG MAMMO PROCEDURES Final Result * Hepatitis C antibody (07/11/2022 1:00 PM CDT) Hep C Ab Nonreactive Nonreactive [facility] Comment: Interpretive Data Nonreactive: Antibodies [...] GENERA L ORDERABLES Edited Result - Final [facility] [address] [place] [address] from Last 3 Months or Most Recently Relevant to Health Maintenance Insurance [facility] [facility] HMO [facility] HMO Care Teams Occupational Psychologist Relationship Specialty Start Date End Date Petey York MD [address] [place] [phone] PCP - General Family Medicine 03/01/22 Teofilo Triplett MD [address] [place] [address] Medical Oncologist/Pizza Hut Assistant Hematology and Oncology 07/22/21 Arian Eaton MD [address] DEPT [place] [address] Consulting Physician Radiation Oncology 07/22/21 Nathan Fish MD [address] [facility] [address] [place] [address] Consulting Physician Surgical Oncology 07/28/21 Shara Monreal MD [address] [place] [address] Consulting Physician Obstetrics and Gynecology 07/28/21 Malorie Malcolm NP [address] [facility] [address] [place] [address] Nurse Practitioner Surgery 12/22/21
--- OUTSIDE RECORDS SUMMARY | 2024-07-25 18:25 | XMS_ITS ---
Author Organization [facility] ([address]) Address [address] [place] [address] Care Team Providers Care Printer'S Assistant Name Role Phone Chela PRAJAPATI, Dr Angelo Primary Care Provider Nita Naqvi Unavailable [phone] REASON FOR VISIT SCIT - Traditional Schedule Allergy Immunotherapy Medications Medication SIG (Take, Route, Frequency, Duration) Notes Start Date End Date Status Vyfemla 35 MCG-0.4 MG 1 TAB(S) ORALLY ONCE A DAY *Please review and pick correct strength-formula tion from Rentobospan options. If intended option is not shown, discontinue and re-order from Quick Search* Not-Taking Famotidine 20 MG 1 tablet Orally Twice a day for 30 days 04/01/2024 Active Medrol 4 MG as directed Orally daily for 6 days 04/01/2024 Not-Taking Cetirizine HCl 10 MG 1 tablet Orally Twice a day for 30 days 04/01/2024 Active Linzess 72 MCG Oral for 30 Days Active Levothyroxine Sodium 75 MCG 1 tab(s) orally once a day Active Montelukast Sodium 10 MG 1 tab(s) orally once a day Active Cetirizine HCl 10 MG 1 tab(s) orally once a day for 30 days Active Fluticasone Propionate 50 MCG/ACT 2 spray(s) in each nostril once a day for 30 days Active Omeprazole 40 MG Oral for 30 Days Active CETIRIZINE 10 mg 1 tab(s) orally once a day for 30 days Active EpiPen 2-Laurent 0.3 mg as directed intramuscularly once for 30 days Active Social History Sex Assigned At : Social History Observation Description Sex Assigned At Female Encounters Encounter Location Date Provider Diagnosis [address] [place] [place] [address] 07/09/2024 Nita Conrad Allergic rhinitis du e to pollen J30.1 ; Other allergic rhinitis J30.89 ; Allergic rhinitis due to animal (cat) (dog) hair and dander J30.81 and Other chronic allergic conjunctivitis H10.45 Assessments Encounter Date Diagnosis (ICD Code) Assessment Notes Treatment Notes Treatment Clinical Notes Section Notes 07/09/2024 Allergic rhinitis due to pollen (ICD-10 - J30.1) 07/09/2024 Other allergic rhinitis (ICD-10 - J30.89) 07/09/2024 Allergic rhinitis due to animal (cat) (dog) hair and dander (ICD-10 - J30.81) 07/09/2024 Other chronic allergic conjunctivitis (ICD-10 - H10.45) Plan Of Treatment Next Appt Details Follow Up: As scheduled, Kacei son: Provider Name:Nita felton, 07/29/2024 05:00:00 PM, [facility] [place], [address], Provider Name:Nita felton, 08/12/2024 05:00:00 PM, [facility] [place], [phone], Provider Name:Nita felton, 08/26/2024 05:00:00 PM, [facility] [place], [address], Progress Notes * Shaylee TATEB:1990 (34 yo F)Acc No.[id number]:07/09/2024 SCIT-Aeroallergen Patient: Latrice ROMERO Provider: James Conrad MD :1990 A ge:34 Y S ex:Female Date:07/09/2024 Address:[address] [place] [address] Pcp:Dr Petey York MD Subjective: * Chief [...] * Hospitalization/Major Diagno stic Procedure: * Medications: T akingEpiPen 2-Laurent 0.3 mg kit as directed intramuscularly once CETIRIZINE 10 mg tablet 1 tab(s) orally once a day EpiPen 2-Laurent 0.3 mg kit as directed intramuscularly once [...] tablet Orally Twice a day Taking EpiPen 2-Laurent 0.3 mg kit as directed intramuscularly once Taking CETIRIZINE 10 mg tablet 1 tab(s) orally once a day Taking EpiPen 2- Laurent 0.3 mg kit as directed intramuscularly once [...] Tablet 1 tablet Orally Twice a day Not-Taking/PRNMedrol 4 MG Tablet Therapy Pack as directed Orally daily Vyfemla 35 MCG-0.4 MG TABLET 1 TAB(S) ORALLY ONCE A DAY , Notes to Pharmacist: *Please review and pick correct strength-formulation from Stellar options. If intended option is not shown, discontinue and re-order from Quick Search*Not-Taking/PRN Medrol 4 MG Tablet Therapy Pack as directed Orally daily Not-Taking/PRN Vyfemla 35 MCG-0.4 MG TABLET 1 TAB(S) ORALLY ONCE A DAY , Notes to Pharmacist: *Please review and pick correct strength-formulation from TrendUan options. If intended option is not shown, discontinue and re-order from Quick Search* Objective: * Vitals: Assessment: * Assessment: 1. [...] * Provider: James Conrad MD Date: 0 07/09/2024 Generated for Ortiz randall/Nina/Denisse on: 0 07/25/2024 06:24 PM CDT History and Physical [...]
--- OUTSIDE RECORDS SUMMARY | 2024-07-25 18:25 | XMS_ITS | Encounter Summary ---
Author Organization [facility] Address [address] [place] [address] Care Team Providers Care Hay Rake Operator Name Role Phone Ryan Metz MD Primary Care Provider [phone] Encounter Details Date Type Department Care Team (Late st Contact Info) Description 12/28/2023 Lab Requisition [facility] - Pathology Lab [address] [place] [address] Enrrique Gandara MD [address] [facility] [address] [place] [phone] Illness, unspecified Social History Tobacco Use Types Packs/Day Years Used Date Smoking Tobacco: Never Smokeless Tobacco: Never Alcohol Use Standard Drinks/Week Comments Yes 0 (1 standard drink = 0.6 oz pur e alcohol) 2-3 drinks per month Comments No Sex and Gender Information Value Date Recorded Sex Assigned at Not on file Legal Sex Female 6:30 PM OPERATIONS SUPERVISOR 2ND SHIFT Gender Identity Not on file Sexual Orientation Not on file 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 Answer Date of Assessment Author No 12/14/2017 2:32 PM Christina Lerner RN * Is person blind or have [...] Procedure Name Priority Date/Time Associated Diagnosis Comments SLIDE PREP HISTOLOGY Routine 02/15/2024 10:00 AM OPERATIONS SUPERVISOR 2ND SHIFT Illness, unspecified documented in this encounter Results * SLIDE PREP HISTOLOGY (02/15/2024 10:00 AM OPERATIONS SUPERVISOR 2ND SHIFT) Client Specimen ID # [id number] 06/21/2024 1:21 PM CDT [facility] Number of Blocks Received 0 06/21/2024 1:21 PM CDT [facility] Number of Slides 1 06/21/2024 1:21 PM CDT [facility] Number of Control Slides 1 06/21/2024 1:21 PM CDT [facility] Pathology/Cytolo gy 02/15/2024 10:00 AM OPERATIONS SUPERVISOR 2ND SHIFT 12/28/2023 12:44 PM CDT us Enrrique Gandara MD LAB - PATHOLOGY/CYT OLOGY ORDERABLES Final Result [facility] [address] [place] [address], [facility] [phone] documented in this encounter Visit Diagnoses Diagnosis Illness, unspecified documented in this encounter Care Teams Hay Rake Operator Relationship Specialty Start Date End Date Ryan Metz MD [address] [place] [id number] PCP - General 05/15/17 documented as of this encounter
--- OUTSIDE RECORDS SUMMARY | 2024-07-25 18:25 | XMS_ITS | Clinical Summary ---
Author Organization [facility] Address [address] [place] [phone] Care Team Providers Care Steeler Name Role Phone Uziel Teofilo Jones MD Unavailable [phone] Arian Eaton MD Unavailable [phone] Nathan Fish MD Unavailable [phone] Shara Monreal MD Unavailable [phone] Malorie Malcolm NP Unavailable Petey York MD Primary Care Provider [phone] Allergies Active Allergy Reactions Criticality Noted Date [...] tablet TAKE 1 TABLET(75 MCG) BY MOUTH HOG SCRAPER BEFORE BREAKFAST 90 tablet 1 024 2024 Discontinued Active Problems Problem Noted Date Diagnosed Date Breast pain, right 06/27/2022 Invasive ductal carcinoma of breast, female, rig ht 07/30/2021 Encounter for fitting and adjustment of vascular catheter 07/30/2021 Overview (07/30/2021): Added automatically from request for surgery [id number] Malignant neoplasm 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, estrogen receptor negative 07/23/2021 Cancer Staging:Clinical stage from 07/20/2021:Stage IB(cT1c, cN0, cM0, G3, ER-, MI-, HER2-) - Signed by Arian Eaton MD on 07/30/2021 Pathologic stage from 02/10/2022:No Stage Recommended(ypT0, pN0(sn), cM0, GX, ER- , MI-, HER2-) - Signed by Arian Eaton MD on 03/09/2022 Endometriosis 10/22/2019 Overview (10/22/2019): Added automatically from request for surgery [id number] Pelvic and perineal pain 10/22/2019 Overview (10/22/2019): Added automatically from request for surgery [id number] Persistent proteinuria 10/25/2018 Recurrent UTI 10/25/2018 Asymptomatic microscopic hematuria 10/25/2018 Acute kidney injury 12/13/2017 Resolved Problems Problem Noted Date Diagnosed Date Resolved Date Post-operative state 02/22/2022 024 Encounters Date Type Department Care Team Description 07/12/2024 Telephone [facility] [address] [place] [phone] Nathan Fish MD 05/06/2024 2:45 PM NURSING COORDINATOR Office Visit [facility] [address] [facility] [address] [place] [phone] Nathan Fish MD Malignant 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, estrogen receptor negative (HCC) (Primary Dx) 05/06/2024 2:00 PM NURSING COORDINATOR Office Visit [facility] Radiation On[facility] [address] [place] [phone] Arian Eaton MD Malignant 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, estrogen receptor negative (HCC) (Primary Dx) 05/06/2024 Orders Only [facility] [address] [place] [address] [place] [phone] Nathan Fish MD Invasive ductal carcinoma of breast, female, right (HCC) (Primary Dx); Malignant 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, estrogen receptor negative (HCC) 05/06/2024 Documentation [facility] [address] [place] [phone] [facility] from Last 3 Months Surgical History Surgery [...] on file Legal Sex Female 12:06 AM NURSING COORDINATOR Gender Identity Not on file Sexual Orientation Not on file Occupation Industry Job Start Date Job End Date [employer] Not on file Not on file Not on file Obstetrics History Para Term AB IAB SAB Ectopic Multiple Livin g Live Births 0 0 0 0 0 0 0 0 0 0 0 Last Filed Vital Signs Vital Sign Reading Time Taken Comments Blood Pressure 126/82 05/06/2024 1:56 PM NURSING COORDINATOR Pulse 98 05/06/2024 1:56 PM NURSING COORDINATOR Temperature 36.1 C (97 F) 05/06/2024 2:30 PM NURSING COORDINATOR Respiratory Rate 18 05/06/2024 1:56 PM NURSING COORDINATOR Oxygen Saturation 100% 05/06/2024 1:56 PM NURSING COORDINATOR Inhaled Oxygen Concentration - - Weight 95.7 kg (211 lb) 05/06/2024 2:30 PM NURSING COORDINATOR Height 162.6 cm (5' 4 ) 05/06/2024 2:30 PM NURSING COORDINATOR Body Mass Index 36.22 05/06/2024 2:30 PM NURSING COORDINATOR Plan of Treatment Health Maintenance Due Date Last Done Comments Depression Screening 1992 Varicella Vaccines (1 of 2 - 13+ 2-dose series) 01/06/2005 DTaP/Tdap/Td Vaccine (7 - Td or Tdap) 10/16/2016 10/16/2006, 06/10/1997, 07/05/1993, Additional history exists Breast Cancer Screening-Mammogram 07/20/2024 07/21/2023, 01/14/2022 Cervical Cancer Screening 09/17/2024 09/18/2023 Regular Well Visit/Exam 18-64 09/17/2024 09/18/2023 Influenza Vaccine (Season Ended) 2024 01/05/2012, 01/22/2004, 01/06/2003 Hepatitis B Screening Completed 1992 , 1992, 1992 Hepatitis C Screening Completed 07/11/2022, 019 HPV Vaccines Aged Out No longer eligi ble based on patient's age to complete this topic Pneumococcal vaccine <65 Aged Out No longer eligible based on patient's age to complete this topic Medical Devices Implanted Type Area Senior Chemical Process Engineer Device Identifier Shelf Expiration Date Model / Serial / Lot WebRadar Magseed 18ga 7cm Marker Breast Biopsy [id number] Right: Breast [employer] [id number] 12/10/2025 [id number] / / [id number] ADVIZE Limited Partnership [facility] Trimark Second Marker Breast Biopsy Disposable Trimark Td 2s 13-Mr - [id number] Implanted:Qty: 1 on 02/28/2024 by Consuelo Altman MD at [facility] Right: Breast [employer] Partnership [id number] 06/13/2025 TRIMARK TD 2S 13-MR / / [id number] Explanted Type Area Senior Chemical Process Engineer Device Identifier Shelf Expiration Date Model / Serial / Lot [id number] [employer] Access Systems Powerport Isp Mri Airguard 8fr 1 Lumen Attachable Catheter Open Latex Free [id number] - [id number] Implanted:Qty: 1 on 08/06/2021 by Koffi Brandon MD at [facility] Explanted:Qty: 1 Right: Chest Bard Access Systems 09/09/2022 [id number] / / [id number] Procedures Procedure Name Priority Date/Time Associated Diagnosis [...] Performed by Comment [facility] - 01 Comment:Regis Oconnell Cytotec hnologist (ASCP) Electronically signed by Comment [...] 09/20/2023 2:11 PM CDT Performed at: - [address] [id number] Supervisor Putty And Caluking: Yumiko Hubbard MD, Phone: [phone] Performed at: - [facility] [id number] Supervisor Putty And Caluking: Yumiko Hubbard MD, Phone: [phone] Specimen Comment: Source.............Cervix;Endocervix Specimen Comment: No. of containers..01 ThinPrep Vial us Shara Monreal MD LAB CYTOLOGY ORDERABLES [facility] - 01 LAB PEÑA 02 * Diagnostic [...] PM CDT) Hep C Ab Nonreactive Nonreactive [facility] Comment: Interpretive Data Nonreactive: Antibodies to [...] GENERA L ORDERABLES Edited Result - Final [facility] [address] Department [place] [address] from Last 3 Months or Most Recently Relevant to Health Maintenance Insurance AETNA [facility] HMO [facility] Care Teams Steeler Relationship Specialty Start Date End Date Petey York MD [facility] [place] [address] PCP - General Family Medicine 03/01/22 Teofilo Triplett MD [address] [place] [address] Medical Oncologist/Pigment Processor Hematology and Oncology 07/22/21 Arian Eaton MD [address] [place] [address] Consulting Physician Radiation Oncology 07/22/21 Nathan Fish MD [address] [place] [address] Consulting Physician Surgical Oncology 07/28/21 Shara Monreal MD [address] [place], [place] [phone] Consulting Physician Obstetrics and Gynecology 07/28/21 Malorie Malcolm, LANEY [address] [place], [place] [phone] Nurse Practitioner Surgery 12/22/21
--- OUTSIDE RECORDS SUMMARY | 2024-07-25 18:25 | XMS_ITS | Clinical Summary ---
Author Organization [facility] Address [address] [place] [address] Care Team Providers Care Promotion Officer Name Role Phone Catalino Koch MD Unavailable Bhavna Ventura PA-C Primary Care Provider [phone] Allergies Active Allergy Reactions Criticality Noted Date [...] tablet TAKE 1 TABLET(75 MCG) BY MOUTH SENIOR INTERIOR DESIGNER BEFORE BREAKFAST 3 Active montelukast (SINGULAIR) 10 MG tablet Take 1 tablet (10 mg total) by mouth nightly at bedtime. Active NEXLETOL 180 MG Tab Take 180 mg by mouth daily. 4 Active cetirizine (ZYRTEC) 10 MG tablet Take 0.5 tablets (5 mg total) by mouth daily. Active EPIPEN 2-ADIDSON 0.3 MG/0.3ML injection Inject 0.3 mLs (0.3 mg total) into the muscle as needed for Anaphylaxis. Active Active Problems Problem Noted Date Diagnosed Date Fall 08/17/2022 BMI 34.0-34.9,adult 08/17/2022 Left ankle sprain 08/16/2022 Assessment & Plan (04/25/2023 10:27 AM ADULT PROBATION OFFICER): Recommendation at this time is to continue with her home exercise program for the ankle. Patient will be seen back as needed. Assessment & Plan (01/31/2023 6:49 PM ADULT PROBATION OFFICER): We got her set up to go [...] CDT - 05/27/2024 7:23 PM CDT Emergency [facility] Emergency Room [address] [place] [address] Tamela Barreto MD Abdominal Pain Discharge Disposition: Transfer to Acute [facility] 05/27/2024 Travel from Last 3 Months Immunizations Immunization Administration Dates Next Due Dtap (Acel-Immune) 06/10/1997, [...] history exists COVID-19 Vaccine ( season) 2023 PHQ-2 (Physician [place]) 03/13/2024 10/11/2023 Cervical Cancer Screening Pap Smear [...] 5 Years) and At-Risk Patients (6 to 49 Years) Aged Out No longer eligible based [...] TEST NEGATIVE NEGATIVE 05/27/2024 3:42 PM CDT [facility] Comment: VERY DILUTE URINE SPECIMENS MAY NOT CONTAIN RAISE MINER LEVELS OF HCG. IF IS STILL SUSPECTED, A SERUM HCG TEST IS RECOMMENDED. URINE SPECIMEN FROM URETHRA / Unknown 05/27/2024 3:30 PM CDT us Tamela Barreto MD URINE ORDERABLES Final Result [facility] [address] [place] [address], [place] [phone] * URINALYSIS, AUTO, COMPLETE (05/27/2024 3:30 PM CDT) COLOR (U) YELLOW 05/27/2024 3:45 PM CDT [facility] TRANSPARENCY CLEAR 05/27/2024 3:45 PM CDT [facility] SPECIFIC GRAVITY (U) 1.015 1.000 - 1.030 05/27/2024 3:45 PM CDT [facility] U PH 7.0 5.0 - 9.0 05/27/2024 3:45 PM CDT [facility] LEUKOCYTES (U) NEGATIVE NEGATIVE 05/27/2024 3:45 PM CDT [facility] NITRITES NEGATIVE NEGATIVE 05/27/2024 3:45 PM CDT [facility] PROTEIN RANDOM (U) NEGATIVE NEGATIVE 05/27/2024 3:45 PM CDT [facility] GLUCOSE (U) NEGATIVE NEGATIVE 05/27/2024 3:45 PM CDT [facility] KETONES MG/DL (U) NEGATIVE NEGATIVE 05/27/2024 3:45 PM CDT [facility] BILIRUBIN (U) NEGATIVE NEGATIVE 05/27/2024 3:45 PM CDT [facility] BLOOD (U) NEGATIVE NEGATIVE 05/27/2024 3:45 PM CDT [facility] WBC/HPF NONE SEEN 0 - 5 /HPF 05/27/2024 3:45 PM CDT [facility] RBC/HPF NONE SEEN 0 - 5 /HPF 05/27/2024 3:45 PM CDT [facility] EPI/HPF FEW /HPF 05/27/2024 3:45 PM CDT [facility] URINE ARDON FEW 05/27/2024 3:45 PM CDT [facility] Comment:MUCOUS URINE SPECIMEN OBTAINED BY CLEAN CATCH PROCEDURE / Unknown 05/27/2024 3:30 PM CDT us Tamela Barreto MD URINE ORDERABLES Final Result [facility] [address] [place] [address], [place] [phone] * PARTIAL THROMBOPLASTIN TIME,PTT (05/27/2024 2:38 PM CDT) PTT 35.5 27.0 - 36.8 SEC 05/27/2024 2:51 PM CDT [facility] 05/27/2024 2:38 PM CDT us Tamela Barreto MD LABORATORY Final Result Performing Organization Address [facility] Co de Phone Number [facility] [address] [place] [address], [place] [phone] * (ABNORMAL) PROTIME/INR, VENOUS (05/27/2024 2:38 PM CDT) PROTIME 13.2(H) 9.1 - 12.4 SEC 05/27/2024 2:51 PM CDT [facility] INR 1.1 05/27/2024 2:51 PM CDT [facility] Comment: Recommend INR ranges for Oral Anticoagulant Therapy: Mechanical Cardiac Values 2.5-3.5 All others indication 2.0-3.0 05/27/2024 2:38 PM CDT us Tamela Barreto MD LABORATORY Final Result Performing Organization Address [facility] Co de Phone Number [facility] [address] [place] [address], [place] [phone] * (ABNORMAL) COMPREHENSIVE METABOLIC PANEL (05/27/2024 2:38 PM CDT) GLUCOSE 106(H) 70 - 99 MG/DL 05/27/2024 2:57 PM CDT [facility] BUN 12 7 - 18 MG/DL 05/27/2024 2:57 PM CDT [facility] CREATININE S/P/B 0.63 0.55 - 1.02 MG/DL 05/27/2024 2:57 PM CDT [facility] SODIUM S/P/B 139 136 - 145 MMOL/L 05/27/2024 2:57 PM CDT [facility] POTASSIUM S/P/B 3.7 3.5 - 5.1 MMOL/L 05/27/2024 2:57 PM T [facility] CHLORIDE S/P/B 104 100 - 108 MMOL/L 05/27/2024 2:57 PM T [facility] CO2 21.7 21 - 32 MMOL/L 05/27/2024 2:57 PM T [facility] CALCIUM S/P/B 9.6 8.5 - 10.1 MG/DL 05/27/2024 2:57 PM T [facility] BILIRUBIN TOTAL S/P/B 0.8 0.2 - 1.2 MG/DL 05/27/2024 2:57 PM T [facility] TOTAL PROTEIN S/P/B 7.4 6.4 - 8.2 G/DL 05/27/2024 2:57 PM T [facility] ALBUMIN S/P/B 3.8 3.4 - 5.0 G/DL 05/27/2024 2:57 PM T [facility] AST 48(H) 15 - 37 U/L 05/27/2024 2:57 PM [facility] ALT 62(H) 14 - 55 U/L 05/27/2024 2:57 PM T [facility] ALKALINE PHOSPHATASE S/P/B 125 50 - 136 U/L 05/27/2024 2:57 PM T [facility] ANION GAP 13.3 5 - 15 MMOL/L 05/27/2024 2:57 PM T [facility] BUN CREATININE RATIO 19.0 6 - 26 05/27/2024 2:57 PM T [facility] A/G RATIO 1.1 1.0 - 2.0 RATIO 05/27/2024 2:57 PM CDT [facility] GFR ESTIMATE >90 >90 ML/MIN/1.7 3 M2 05/27/2024 2:57 PM CDT [facility] Comment: NOTE: eGFR is not calculated for patients <18 years of age. This is an estimated GFR calculation using the new CKD EPI creatinine equation without race and so does not require a correction factor for race. This estimated GFR should not be used for calculating drug doses. 05/27/2024 2:38 PM CDT us Tamela Barreto MD LABORATORY Final Result [facility] [address] [place] [address], [place] [phone] * (ABNORMAL) CBC W/DIFF AUTOMATED (05/27/2024 2:38 PM CDT) WBC 8.63 4.4 - 11.0 x10'3/uL 05/27/2024 2:43 PM CDT [facility] RBC 4.30(L) 4.50 - 5.10 x10'6/uL 05/27/2024 2:43 PM CDT [facility] HGB 12.8 12.3 - 15.3 G/DL 05/27/2024 2:43 PM CDT [facility] HCT 38.4 35.9 - 44.6 % 05/27/2024 2:43 PM CDT [facility] MCV 89.3 80.0 - 96.0 FL 05/27/2024 2:43 PM CDT [facility] MCH 29.8 25.3 - 30.9 PG 05/27/2024 2:43 PM CDT [facility] MCHC 33.3 31.0 - 34.1 G/DL 05/27/2024 2:43 PM CDT [facility] RDW 12.5 12.4 - 15.1 % 05/27/2024 2:43 PM CDT [facility] PLT 361(H) 151 - 353 x10'3/uL 05/27/2024 2:43 PM CDT [facility] MPV 9.3(L) 9.6 - 12.0 FL 05/27/2024 2:43 PM CDT [facility] RBC MORPHOLOGY NORMAL 05/27/2024 2:43 PM CDT [facility] PLT MORPH. NORMAL 05/27/2024 2:43 PM T [facility] WBC MORPHOLOGY NORMAL 05/27/2024 2:43 PM CDT [facility] LYMPHOCYTES % 19.5 15.8 - 45.0 % 05/27/2024 2:43 PM CDT [facility] NEUTROPHILS % 66.3 42.1 - 71.9 % 05/27/2024 2:43 PM CDT [facility] MONOCYTES % 7.4 5.7 - 12.5 % 05/27/2024 2:43 PM CDT [facility] EOSINOPHILS 5.8(H) 0.0 - 5.6 % 05/27/2024 2:43 PM CDT [facility] BASOPHILS 0.7 0.0 - 1.3 % 05/27/2024 2:43 PM CDT [facility] ABS. NEUTROPHILS 5.72 1.40 - 6.00 x10'3/uL 05/27/2024 2:43 PM CDT [facility] IMMATURE GRANS % 0.3 0.0 - 0.5 % 05/27/2024 2:43 PM CDT [facility] ABS. LYMPHOCYTES 1.68 0.80 - 4.70 x10'3/uL 05/27/2024 2:43 PM CDT [facility] 05/27/2024 2:38 PM CDT us Tamela Barreto MD LABORATORY Final Result Performing Organization Address [facility]/ZIP Co de Phone Number [facility] [address] [place] [address], [place] [phone] * LIPASE (05/27/2024 2:38 PM CDT) LIPASE 29 16 - 77 UNITS/L 05/27/2024 2:57 PM CDT [facility] 05/27/2024 2:38 PM CDT us Tamela Barreto MD LABORATORY Final Result Performing Organization Address [facility] de Phone Number [facility] [address] [place] [address], [place] [phone] from Last 3 Months Insurance [id number] [place] [id number] [employer] Care Teams Promotion Officer Relationship Specialty Start Date End Date Bhavna Ventura PA-C [address] [place] [address] [address] [place] [address] PCP - General PHYSICIAN POULTRY EVISCERATOR 05/27/24 Catalino Koch MD [address] [facility] [[email or web address] [address] [place] [address] GENERAL SURGERY 05/27/24
--- OUTSIDE RECORDS SUMMARY | 2024-07-25 18:25 | XMS_ITS | Clinical Summary ---
Author Organization [facility] Address [address] [place] [address] Care Team Providers Care Wagon Driller Name Role Phone Ryan Metz MD Primary Care Provider Source Comments [facility],non-owned Affiliates and Associated Physician Practices is amultiple site organization consisting of ambulatory clinics and hospital sitesin [place], [place], [place] and [place]. This disclosure is being madepursuant to the Care Everywhere program and may not contain all information available regarding this patient. Last updated 17.[facility] Allergies Active Allergy Reactions Criticality Noted Date Comments Doxycycline Nausea and/or Vomiting 12/13/2017 Medications * Be aware that medications may not be up to date on this document. Alwaysverify current medications with the patient. norethindrone-e thinyl estradiol (BALZIVA) 0.4-35 MG-MCG tabletIndicatio ns:Contraceptiv e Therapy Take 1 tablet by mouth once [...] on file Legal Sex Female 6:30 PM FRUIT GRADER Gender Identity Not on file Sexual Orientation [...] VACCINE (1 - 2023-2 5 season) 2023 DEPRESSION SCREENING 03/13/2024 INFLUENZA VACCINE (Season Ended) 2024 ZOSTER VACCINE (1 of 2) 01/06/2042 HIB [...] patient's age to complete this topic Insurance SELF PAY NO INSURANCE Member Subscriber Plan / Payer (Ef fective for All Dates) Name:Zina Zheng Member ID:Not on file Relation to Subscriber:Not on file Name:ZINA ZHENG Subscriber ID:Not on file Date of :1990 Payer ID:Not on file Group ID:Not on file Type:Self Pay Address: [place], [place] [employer] Advance Directives * Full Code (Latest Code Status on File) Date Activated Date Inactivated Comments 12/13/2017 6:14 PM 12/14/2017 4:52 PM Care Teams Wagon Driller Relationship Specialty Start Date End Date Ryan Metz MD [address] [place] [id number] [facility] - General 05/15/17
--- OUTSIDE RECORDS SUMMARY | 2024-07-25 18:26 | XMS_ITS | Continuity of Care Document ---
Author Organization [employer] [facility] Address [address] [place] [address] [address] [place] [address] Phone Care Team Providers Care Library Historian Name Role Phone Donald JAE Marla Unavailable [...] Date Provider Providers Copied on Encounter [facility] [address], [place], [place], [id number], [place] tel:[phone] [facility] No Information Donald Gtuiérrez. . Referring Provider: Delfino Cesar Laura [address], [place], [address]. tel:[phone] [place] [address], [address] [place], [place] [address], [place], [place], [id number], tel:[phone] [facility] No Information Donald Gutiérrez. . Referring Provider: Delfino Cesar Laura [address], [place], [address]. tel:[phone] [place] [address] [place], [place] [address], [place], [place], [id number], tel:[phone] [facility] No Information Arleth Barker. . Referring Provider: Delfino Cesar [facility] [address], [place], [address]. tel:[phone] [place] [address] [place], [place] [address], [place], [place], [id number], tel:[phone] [facility] No Information Arleth Barker. . Referring Provider: Delfino Cesar BrigetteKaylene [address], [place], [address]. tel:[phone] [place] [address] [place], [place] [address], [place], [place], [address], tel:[phone] [facility] No Information Arlethdoreen Barker. . Referring Provider: Delfino Cesar BrigetteKaylene [address], [place], [address]. tel:[phone] [facility] [address] [place], [place] [address], [place], [place], [address], tel:[phone] [facility] No Information Arleth Barker. . Referring Provider: Delfino Cesar BrigetteKaylene [address], [place], [address]. tel:[phone] [facility], [place], [place], [address], [place] tel:[phone] [facility] No Information Arleth Mj. . Referring Provider: Delfino Cesar BrigetteKaylene [address], [place], [address]. tel:[phone] [place] [address] [address], [place], [place], [address], [place] tel:[phone] [facility] No Information Arleth Mj. . Referring Provider: Laura Albright [address], [place], [address]. tel:[phone] [place], [place] [address], [place], [place], [address], tel:[phone] [facility] No Information Arleth Mj. . Referring Provider: Laura Albright [address], [place], [address]. tel:[phone] [place], [place] [address], [place], [place], [address], tel:[phone] [facility] No Information Arleth Mj. . Referring Provider: Laura Albright [address], [place], [address]. tel:[phone] [facility], [place], [place], [id number], [place] tel:[phone] [facility] No Information Arleth Mj. . Referring Provider: Delfino Cesar BrigetteKaylene [address], [place], [address]. tel:[phone] [facility], [place], [place], [address], [place] tel:[phone] [facility] No Information Arleth Barker. . Referring Provider: Delfino Cesar, Laura [address], [place], [address]. tel:[phone] [place], [place] [address] [address], [place], [place], [address], tel:[phone] [facility] No Information Arleth Barker. . Referring Provider: Delfino Cesar Laura [address], [place], [address]. tel:[phone] [place] [address] [address], [place], [place], [address], [place] tel:[phone] [facility] No Information Arltehalex Barker. . Referring Provider: Delfino Cesar BrigetteKaylene [address], [place], [address]. tel:[phone] [place], [place] [address] [address], [place], [place], [address], tel:[phone] [facility] No Information Arleth Barker. . Referring Provider: Delfino Cesar BrigetteKaylene [address], [place], [address]. tel:[phone] [place] [address] [place], [place] [address], [place], [place], [address], tel:[phone] [facility] No Information Arleth Barker. . Referring Provider: Delfino Cesar BrigetteKaylene [address], [place], [address]. tel:[phone] [place], [place] [address] [address], [place], [place], [address], tel:[phone] [facility] No Information Arleth Barker. . Referring Provider: Delfino Cesar BrigetteKaylene [address], [place], [address]. tel:[phone] [place], [place] [address] [address], [place], [place], [address], [place] tel:[phone] [facility] No Information Arleth Barker. . Referring Provider: Delfino Cesar, Laura [facility] [address], [place], [address]. tel:[phone] [place] [address] [address] [facility], [place], [place], [address], tel:[phone] [facility] No Information Arleth Barker. . Referring Provider: Delfino Cesar Laura [facility] [address], [place], [address]. tel:[phone] [place] [address], [address] [facility], [place], [place], [address], tel:[phone] [facility] No Information Arleth Barker. . Referring Provider: Delfino Cesar BrigetteKaylene [facility] [address], [place], [address]. tel:[phone] [place] [address] [address] [facility], [place], [place], [address], tel:[phone] [facility] No Information Arleth Barker. . Referring Provider: Delfino Cesar BrigetteKaylene [facility] [address], [place], [address]. tel:[phone] [place] [address] [address], [place], [place], [address], tel:[phone] [facility] No Information Arleth Barker. . Referring Provider: Delfino Cesar [facility]Kaylene [facility] [address], [place], [address]. tel:[phone] [place], [place] [address] [address], [place], [place], [address], tel:[phone] [facility] No Information Arleth Barker. . Referring Provider: Delfino Cesar, [address], [place], [address]. tel:[phone] Family History Family Member Type Diagnosis Age At Onset No Information Payers Payer name Insurance type Covered republican ID Renan caba(annie Rey [id number] Geena GALEANO LI 00 Social History Type [...]
[2024-07-25 18:30] VITALS: BP 99/57; PULSE 82; RESP 18; TEMP 36.6; O2SAT 100
[2024-07-25 18:40] LABS: EDUAAPPEAR Cloudy; EDUABILI Negative (Negative); EDUABLOOD Trace (Negative); EDUACOLOR1 Yellow; EDUAGLUCOSE Negative (Negative); EDUAKETONE Negative (Negative); EDUALEUKO 1+ (Negative); EDUANITRATE Negative (Negative); EDUAPROTEIN Negative (Negative); EDUASPGRAVITY 1.015; EDUAUROBILI 0.2
== END 2024-07-25 18:50 | disposition home or self-care (01) ==
PROVIDERS: Emergency Provider Nurse Practitioner Family; PCP Physician Assistant Medical
DX: N30.01 Acute cystitis with hematuria (principal); E78.5 Hyperlipidemia, unspecified; Z85.3 Personal history of malignant neoplasm of breast
CPT/HCPCS: 81003; 87086; 99213; G0463

== ENCOUNTER 2024-08-05 12:45 | Emergency (ER) | payer OTHER, SELFPAY ==
--- OUTSIDE RECORDS SUMMARY | 2024-08-05 12:47 | XMS_ITS ---
Author Organization [facility] ([address]) Address [address] [place] [address] Care Team Providers Care Professor Of Poultry Science Name Role Phone Chela PRAJAPATI, Dr Angelo Primary Care Provider Nita Naqvi Unavailable [phone] REASON FOR VISIT [facility] - Traditional Schedule Allergy Immunotherapy Medications Medication SIG (Take, Route, Frequency, Duration) Notes Start Date End Date Status Famotidine 20 MG 1 tablet Orally Twice a day for 30 days 04/01/2024 Active Medrol 4 MG as directed Orally daily for 6 days 04/01/2024 Not-Taking Vyfemla 35 MCG-0.4 MG 1 TAB(S) ORALLY ONCE A DAY *Please review and pick correct strength-formula tion from Medispan options. If intended option is not shown, discontinue and re-order from Quick Search* Not-Taking Linzess 72 MCG Oral for 30 Days Active Cetirizine HCl 10 MG 1 tablet Orally Twice a day for 30 days 04/01/2024 Active Cetirizine HCl 10 MG 1 tab(s) orally once a day for 30 days Active Fluticasone Propionate 50 MCG/ACT 2 spray(s) in each nostril once a day for 30 days Active Levothyroxine Sodium 75 MCG 1 tab(s) orally once a day Active Montelukast Sodium 10 MG 1 tab(s) orally once a day Active Omeprazole 40 MG Oral for 30 Days Active EpiPen 2-Laurent 0.3 mg as directed intramuscularly once for 30 days Active CETIRIZINE 10 mg 1 tab(s) orally once a day for 30 days Active Social History Sex Assigned At : Social History Observation Description Sex Assigned At Female Encounters Encounter Location Date Provider Diagnosis [address] [address] [place] [address] 08/01/2024 Nita Conrad Allergic rhinitis du e to pollen J30.1 ; Other allergic rhinitis J30.89 ; Allergic rhinitis due to animal (cat) (dog) hair and dander J30.81 and Other chronic allergic conjunctivitis H10.45 Assessments Encounter Date Diagnosis (ICD Code) Assessment Notes Treatment Notes Treatment Clinical Notes Section Notes 08/01/2024 Allergic rhinitis due to pollen (ICD-10 - J30.1) 08/01/2024 Other allergic rhinitis (ICD-10 - J30.89) 08/01/2024 Allergic rhinitis due to animal (cat) (dog) hair and dander (ICD-10 - J30.81) 08/01/2024 Other chronic allergic conjunctivitis (ICD-10 - H10.45) Plan Of Treatment Next Appt Details Follow Up: As scheduled, Kacie son: Provider Name:Nita felton, 08/08/2024 04:50:00 PM, [facility] [place], [address], Provider Name:Nita felton, 08/12/2024 05:00:00 PM, [facility] [place], [address], Provider Name:Nita felton, 08/26/2024 05:00:00 PM, [facility] [place], [address], Progress Notes * Shaylee TATEB:1990 (34 yo F)Acc No.[id number]:08/01/2024 [facility] Patient: Latrice ROMERO Provider: James Conrad MD :1990 A ge:34 Y S ex:Female Date:08/01/2024 Address:[address] [place] [address] Pcp:Dr Petey York MD Subjective: * Chief [...] is on file. * Medical History: * Medications: T aking EpiPen 2-Laurent 0.3 mg kit as directed intramuscularly once , Taking EpiPen 2-Laurent 0.3 mg kit as directed intramuscularly once , Taking CETIRIZINE 10 mg tablet 1 tab(s) orally once a day , Taking Cetirizine HCl 10 MG Tablet 1 tab(s) orally once a day , Taking Fluticasone Propionate 50 MCG/ACT Suspension 2 spray(s) in each nostril once a day , Taking Levothyroxine Sodium 75 MCG Tablet 1 tab(s) orally once a day , Taking Montelukast Sodium 10 MG Tablet 1 tab(s) orally once a day , Taking Omeprazole 40 MG Capsule Delayed Release Oral , Taking Linzess 72 MCG Capsule Oral , Taking Cetirizine HCl 10 MG Tablet 1 tablet Orally Twice a day , Taking Famotidine 20 MG Tablet 1 tablet Orally Twice a day , Not-Taking/PRN Medrol 4 MG Tablet Therapy Pack as directed Orally daily , Not-Taking/PRN Vyfemla 35 MCG-0.4 MG TABLET 1 [...] Electronic signature of An Conrad MD on 08/05/2024 at 12:47 PM CDT Sign off status: Pending * Provider: James Conrad MD Date: 08/01/2024 Generated for Ortiz randall/Nina/Denisse on: 08/05/2024 12:47 PM CDT History and Physical Notes * [...]
--- OUTSIDE RECORDS SUMMARY | 2024-08-05 12:48 | XMS_ITS | Patient Health Record ---
Author Organization [facility] [place] ([address]) Address [address] [place] [address] Care Team Providers Care Pearl Digger Name Role Phone Chela PRAJAPATI, Dr Angelo Primary Care Provider Nita Naqvi Unavailable [phone] [facility], Provider Unavailable Unavailab le Allergies Allergen [...] discontinue and re-order from Quick Search* Not-Taking CETIRIZINE 10 mg 1 tab(s) orally once a day for 30 days Active Cetirizine HCl 10 [...] once for 30 days Active Social History Tobacco Use: Social History Observation Description Date Details (start date - stop date) Never Smoker NA - NA Sex Assigned At : Social History Observation Description Sex Assigned At Female Tobacco Control (Standard) Question Answer Notes Tobacco use: Nonsmoker Problems Problem Type SNOMED Code ICD Code Onset Dates Problem Status W/U Status Risk Notes Problem Chronic allergic conjunctivitis (59274645) Other chronic allergic conjunctivitis (H10.45) Active confirmed Problem Allergic rhinitis caused by pollen (disorder) (18846052) Allergic rhinitis due to pollen (J30.1) Active confirmed Problem Allergic rhinitis (80520811) Other allergic rhinitis (J30.89) Active confirmed Problem Allergic rhinitis caused by animal hair and dander (228915850009003) Allergic rhinitis due to animal (cat) (dog) hair and dander (J30.81) Active confirmed Vital Signs Blood pressure diastolic 74 mm Hg 04/29/2024 Oximetry 99 % 04/29/2024 Height 64 in 04/29/2024 Blood pressure systolic 108 mm Hg 04/29/2024 Weight 212.4 lbs 04/29/2024 BMI 36.45 kg/m2 04/29/2024 Encounters Encounter Location Date Provider Diagnosis [place] [address] 08/26/2023 Provider ZZ-Migration Allergic rhinitis due to pollen J30.1 PO [address] [place] [address] 08/10/2023 Nita Conrad Allergic rhinitis du e to pollen J30.1 ; Other allergic rhinitis J30.89 ; Allergic rhinitis due to animal (cat) (dog) hair and dander J30.81 and Other chronic allergic conjunctivitis H10.45 [place] [address] 08/24/2023 Nita Houston Allergic rhinitis du e to pollen J30.1 ; Other allergic rhinitis J30.89 ; Allergic rhinitis due to animal (cat) (dog) hair and dander J30.81 and Other chronic allergic conjunctivitis H10.45 [facility] [place] [address] [place] [address] 08/29/2023 Nita [place] Allergic rhinitis du e to pollen J30.1 ; Other allergic rhinitis J30.89 ; Allergic rhinitis due to animal (cat) (dog) hair and dander J30.81 and Other chronic allergic conjunctivitis H10.45 [facility] [address] [place] [address] 09/04/2023 Nita [place] Allergic rhinitis du e to pollen J30.1 ; Other allergic rhinitis J30.89 ; Allergic rhinitis due to animal (cat) (dog) hair and dander J30.81 and Other chronic allergic conjunctivitis H10.45 [facility] - [place] [address] [place] [address] 09/13/2023 Nita Houston Allergic rhinitis du e to pollen J30.1 ; Other allergic rhinitis J30.89 ; Allergic rhinitis due to animal (cat) (dog) hair and dander J30.81 and Other chronic allergic conjunctivitis H10.45 [facility] - [place] [address] [place] [address] 09/20/2023 Nita Houston Allergic rhinitis du e to pollen J30.1 ; Other allergic rhinitis J30.89 ; Allergic rhinitis due to animal (cat) (dog) hair and dander J30.81 and Other chronic allergic conjunctivitis H10.45 [facility] [place] [address] [place] [address] 09/28/2023 Nita [place] Allergic rhinitis du e to pollen J30.1 ; Other allergic rhinitis J30.89 ; Allergic rhinitis due to animal (cat) (dog) hair and dander J30.81 and Other chronic allergic conjunctivitis H10.45 [facility] - [place] [address] [place] [address] 10/03/2023 Nita Houston Allergic rhinitis du e to pollen J30.1 ; Other allergic rhinitis J30.89 ; Allergic rhinitis due to animal (cat) (dog) hair and dander J30.81 and Other chronic allergic conjunctivitis H10.45 [facility] - [place] [address] [place] [address] 10/17/2023 Nita Houston Allergic rhinitis du e to pollen J30.1 ; Other allergic rhinitis J30.89 ; Allergic rhinitis due to animal (cat) (dog) hair and dander J30.81 and Other chronic allergic conjunctivitis H10.45 [facility] - [place] [address] [place] [address] 10/24/2023 Nita Houston Allergic rhinitis du e to pollen J30.1 ; Other allergic rhinitis J30.89 ; Allergic rhinitis due to animal (cat) (dog) hair and dander J30.81 and Other chronic allergic conjunctivitis H10.45 [facility] - [place] [address] [place] [address] 10/31/2023 Nita Houston Allergic rhinitis du e to pollen J30.1 ; Other allergic rhinitis J30.89 ; Allergic rhinitis due to animal (cat) (dog) hair and dander J30.81 and Other chronic allergic conjunctivitis H10.45 [facility] - [place] [address] [place] [address] 11/07/2023 Nita Houston Allergic rhinitis du e to pollen J30.1 ; Other allergic rhinitis J30.89 ; Allergic rhinitis due to animal (cat) (dog) hair and dander J30.81 and Other chronic allergic conjunctivitis H10.45 [facility] - [place] [address] [place] [address] 11/14/2023 Nita Houston Allergic rhinitis du e to pollen J30.1 ; Other allergic rhinitis J30.89 ; Allergic rhinitis due to animal (cat) (dog) hair and dander J30.81 and Other chronic allergic conjunctivitis H10.45 [facility] [place] [address] [place] [address] 11/22/2023 Nita Houston Allergic rhinitis du e to pollen J30.1 ; Other allergic rhinitis J30.89 ; Allergic rhinitis due to animal (cat) (dog) hair and dander J30.81 and Other [facility]10.45 [facility] [address] [place] [address] 12/05/2023 Nita Houston Allergic rhinitis du e to pollen J30.1 ; Other allergic rhinitis J30.89 ; Allergic rhinitis due to animal (cat) (dog) hair and dander J30.81 and Other chronic allergic conjunctivitis H10.45 [facility] [address] [place] [address] 12/12/2023 Nita Houston Allergic rhinitis du e to pollen J30.1 ; Other allergic rhinitis J30.89 ; Allergic rhinitis due to animal (cat) (dog) hair and dander J30.81 and Other chronic allergic conjunctivitis H10.45 [facility] [address] [place] [address] 12/19/2023 Nita Houston Allergic rhinitis du e to pollen J30.1 ; Other allergic rhinitis J30.89 ; Allergic rhinitis due to animal (cat) (dog) hair and dander J30.81 and Other chronic allergic conjunctivitis H10.45 [facility] [address] [place] [address] 12/26/2023 Nita Houston Allergic rhinitis du e to pollen J30.1 ; Other allergic rhinitis J30.89 ; Allergic rhinitis due to animal (cat) (dog) hair and dander J30.81 and Other chronic allergic conjunctivitis H10.45 [facility] [address] [place] [address] 01/02/2024 Nita Houston Allergic rhinitis du e to pollen J30.1 ; Other allergic rhinitis J30.89 ; Allergic rhinitis due to animal (cat) (dog) hair and dander J30.81 and Other chronic allergic conjunctivitis H10.45 [facility] - [place] [address] [place] [address] 01/11/2024 Nita Houston Allergic rhinitis du e to pollen J30.1 ; Other allergic rhinitis J30.89 ; Allergic rhinitis due to animal (cat) (dog) hair and dander J30.81 and Other chronic allergic conjunctivitis H10.45 [facility] - [place] [address] [place] [address] 01/17/2024 Nita Houston Allergic rhinitis du e to pollen J30.1 ; Other allergic rhinitis J30.89 ; Allergic rhinitis due to animal (cat) (dog) hair and dander J30.81 and Other chronic allergic conjunctivitis H10.45 [facility] - [place] [address] [place] [address] 01/30/2024 Nita Houston Allergic rhinitis du e to pollen J30.1 ; Other allergic rhinitis J30.89 ; Allergic rhinitis due to animal (cat) (dog) hair and dander J30.81 and Other chronic allergic conjunctivitis H10.45 [facility] - [place] [address] [place] [address] 02/05/2024 Nita Houston Allergic rhinitis du e to pollen J30.1 ; Other allergic rhinitis J30.89 ; Allergic rhinitis due to animal (cat) (dog) hair and dander J30.81 and Other chronic allergic conjunctivitis H10.45 [facility] - [place] [address] [place] [address] 02/12/2024 Nita Houston Allergic rhinitis du e to pollen J30.1 ; Other allergic rhinitis J30.89 ; Allergic rhinitis due to animal (cat) (dog) hair and dander J30.81 and Other chronic allergic conjunctivitis H10.45 [facility] - [place] [address] [place] [address] 02/20/2024 Nita Houston Allergic rhinitis du e to pollen J30.1 ; Other allergic rhinitis J30.89 ; Allergic rhinitis due to animal (cat) (dog) hair and dander J30.81 and Other chronic allergic conjunctivitis H10.45 [facility] [place] [address] [place] [address] 02/27/2024 Nita Houston Allergic rhinitis du e to pollen J30.1 ; Other allergic rhinitis J30.89 ; Allergic rhinitis due to animal (cat) (dog) hair and dander J30.81 and Other chronic allergic conjunctivitis H10.45 [facility] - [place] [address] [place] [address] 03/11/2024 Nita Houston Allergic rhinitis du e to pollen J30.1 ; Other allergic rhinitis J30.89 ; Allergic rhinitis due to animal (cat) (dog) hair and dander J30.81 and Other chronic allergic conjunctivitis H10.45 [facility] - [place] [address] [place] [address] 03/27/2024 Nita Houston Allergic rhinitis du e to pollen J30.1 ; Other allergic rhinitis J30.89 ; Allergic rhinitis due to animal (cat) (dog) hair and dander J30.81 and Other chronic allergic conjunctivitis H10.45 [facility] - [place] [address] [place] [address] 04/01/2024 Nita Houston Allergic rhinitis du e to pollen J30.1 ; Dermatitis, unspecified L30.9 ; Shortness of breath R06.02 ; Allergic rhinitis due to animal (cat) (dog) hair and dander J30.81 ; Other allergic rhinitis J30.89 and Other chronic allergic conjunctivitis H10.45 [facility] - [place] [address] [place] [address] 04/10/2024 Nita Houston Allergic rhinitis du e to pollen J30.1 ; Other allergic rhinitis J30.89 ; Allergic rhinitis due to animal (cat) (dog) hair and dander J30.81 and Other chronic allergic conjunctivitis H10.45 [facility] - [place] [address] [place] [address] 04/15/2024 Nita Houston Allergic rhinitis du e to pollen J30.1 ; Other allergic rhinitis J30.89 ; Allergic rhinitis due to animal (cat) (dog) hair and dander J30.81 and Other chronic allergic conjunctivitis H10.45 [facility] [place] [address] [place] [address] 04/22/2024 Nita Conrad Allergic rhinitis du e to pollen J30.1 ; Other allergic rhinitis J30.89 ; Allergic rhinitis due to animal (cat) (dog) hair and dander J30.81 and Other chronic allergic conjunctivitis H10.45 [facility] [address] [place] [address] 04/29/2024 Nitajim Carvajalm Allergic rhinitis du e to pollen J30.1 ; Dermatitis, unspecified L30.9 ; Shortness of breath R06.02 ; Allergic rhinitis due to animal (cat) (dog) hair and dander J30.81 ; Other allergic rhinitis J30.89 and Other chronic allergic conjunctivitis H10.45 [facility] [address] [place] [address] 05/15/2024 Nita Conrad Allergic rhinitis du e to pollen J30.1 ; Other allergic rhinitis J30.89 ; Allergic rhinitis due to animal (cat) (dog) hair and dander J30.81 and Other chronic allergic conjunctivitis H10.45 [facility] [address] [place] [address] 06/13/2024 Nita Conrad Allergic rhinitis du e to pollen J30.1 ; Other allergic rhinitis J30.89 ; Allergic rhinitis due to animal (cat) (dog) hair and dander J30.81 and Other chronic allergic conjunctivitis H10.45 [facility] [address] [place] [address] 07/04/2024 Nita Conrad Allergic rhinitis du e to pollen J30.1 ; Other allergic rhinitis J30.89 ; Allergic rhinitis due to animal (cat) (dog) hair and dander J30.81 and Other chronic allergic conjunctivitis H10.45 [facility] [address] [place] [address] 07/09/2024 Nita Rothurm Allergic rhinitis du e to pollen J30.1 ; Other allergic rhinitis J30.89 ; Allergic rhinitis due to animal (cat) (dog) hair and dander J30.81 and Other chronic allergic conjunctivitis H10.[address] [address] 07/16/2024 Nita Conrad Allergic rhinitis du e to pollen J30.1 ; Other allergic rhinitis J30.89 ; Allergic rhinitis due to animal (cat) (dog) hair and dander J30.81 and Other chronic allergic conjunctivitis H10.[address] [address] 04/01/2024 Nita Conrad [address] [address] 06/19/2024 Nita Conrad Assessments Encounter Date Diagnosis (ICD Code) Assessment Notes Treatment Notes Treatment Clinical Notes Section Notes 08/10/2023 Allergic rhinitis due to pollen (ICD-10 [...] 10/03/2023 Other allergic rhinitis (ICD-10 - J30.89) 11/07/2023 [...] 12/12/2023 Other allergic rhinitis (ICD-10 - J30.89) 12/26/2023 [...] 04/10/2024 Other allergic rhinitis (ICD-10 - J30.89) 04/29/2024 [...] difficulty with products. Recommend Aquaphor or Vaseline. 06/13/2024 Allergic rhinitis due to pollen (ICD-10 [...] 07/16/2024 Other allergic rhinitis (ICD-10 - J30.89) 12/19/2023 Allergic rhinitis due to pollen (ICD-10 - J30.1) 12/19/2023 Other allergic rhinitis (ICD-10 - J30.89) 10/31/2023 Allergic rhinitis due to pollen (ICD-10 - J30.1) 10/31/2023 Other allergic rhinitis (ICD-10 - J30.89) 10/24/2023 Allergic rhinitis due to pollen (ICD-10 - J30.1) 10/24/2023 Other allergic rhinitis (ICD-10 - J30.89) 10/17/2023 Allergic rhinitis due to pollen (ICD-10 - J30.1) 10/17/2023 Other allergic rhinitis (ICD-10 - J30.89) 05/15/2024 Allergic rhinitis due to pollen (ICD-10 - J30.1) 05/15/2024 Other allergic rhinitis (ICD-10 - J30.89) 04/22/2024 Allergic rhinitis due to pollen (ICD-10 - J30.1) 04/22/2024 Other allergic rhinitis (ICD-10 - J30.89) 04/15/2024 Allergic rhinitis due to pollen (ICD-10 - J30.1) 04/15/2024 Other allergic rhinitis (ICD-10 - J30.89) 04/15/2024 Allergic rhinitis due to animal (cat) (dog) hair and dander (ICD-10 - J30.81) 04/22/2024 Allergic rhinitis due to animal (cat) [...] hair and dander (ICD-10 - J30.81) 07/16/2024 Allergic rhinitis due to animal (cat) [...] been present in the home 6 months 04/10/2024 Allergic rhinitis due to animal (cat) [...] hair and dander (ICD-10 - J30.81) 08/10/2023 Other chronic allergic conjunctivitis (ICD-10 - [...] hair and dander (ICD-10 - J30.81) 06/13/2024 Other chronic allergic conjunctivitis (ICD-10 - [...] Other chronic allergic conjunctivitis (ICD-10 - H10.45) 05/15/2024 Other chronic allergic conjunctivitis (ICD-10 - [...] antihistamine/mas t cell stabilizer, PRN 03/18/2024 Other Plan Of Treatment Next Appt Details Provider Name:Nita felton, 08/08/2024 04:50:00 PM, [address] [place], [address], Provider Name:Nita felton, 08/12/2024 05:00:00 PM, [facility] [place], [address], Provider Name:Nita felton, 08/26/2024 05:00:00 PM, [address] [place], [address], Insurance Providers Payer Name Payer Address Payer Phone Subscriber Number Group Number Insured Name Patient Relationship to Insured Coverage Start Date Coverage End Date [employer] [address] [address] [place] [address] [id number] Latrice Tate Self - patient is the insured Medical (General) History Medical History History ICD Code Hypothyroidism Cancer Surgical History Surgery Date(Month/Year) Lumpectomy 02/10/2022 port removal 07/14/2023
--- OUTSIDE RECORDS SUMMARY | 2024-08-05 12:48 | XMS_ITS | Encounter Summary ---
Author Organization [facility] Address [address] [place] [address] Care Team Providers Care Hand Straightener Name Role Phone Ryan Metz MD Primary Care Provider [phone] Encounter Details Date Type Department Care Team (Late st Contact Info) Description 12/14/2023 Lab Requisition [facility] - DermPath Lab [address] [facility] [place] [address] Fina Cueto MD [address] [facility] [address], [place] [address] Social History Tobacco Use Types Packs/Day Years Used Date Smoking Tobacco: Never Smokeless Tobacco: Never Alcohol Use Standard Drinks/Week Comments Yes 0 (1 standard drink = 0.6 oz pur e alcohol) 2-3 drinks per month Comments No Sex and Gender Information Value Date Recorded Sex Assigned at Not on file 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 SKIN, under right breast: VASCULAR PROLIFERATION, SUPERFICIAL PORTIONS OF (D48.5) (see microscopic description and comment) 4 3:57 PM CDT DERMATOPATHOLOGY LABORATORY at 1557 CDT Clinical History Cyst vs dermatofibroma, r/o other 4 3:57 PM CDT DERMATOPATHOLOGY LABORATORY Gross Description Specimen A: Received is one formalin filled container labeled with the patient's name and designated under right breast. The specimen consists of a 3x3x4 mm piece of skin. The specimen is serially sectioned and a operations representative section is submitted in cassette 1. Jar 1. 4 3:57 PM CDT DERMATOPATHOLOGY LABORATORY Microscopic Description [...] characteristic determined by the Dermatopathology Laboratory at [facility], directed by Dr. Tigre Fenton. These tests need not be, and therefore are not, approved by the [place] Food and Drug Administration. The tests are used for clinical purposes. Billing Codes Specimen Charges Stain Charges 93614 1 90277 18096 93726 51909 96117 93018 1 1 1 1 1 1 4 3:57 PM CDT DERMATOPATHOLOGY LABORATORY Embedded Images 4 3:57 PM CDT DERMATOPATHOLOGY LABORATORY Pathology/Cytolog y TISSUE SPECIMEN FROM SKIN / Unknown 12/14/2023 12/18/2023 8:49 AM CDT Fina Cueto MD LAB - PATHOLOGY/CYTOLOGY AZALEA GUPTA Final Result DERMATOPATHOLOGY LABORATORY [facility] - Department of Dermatology [address], [address] [phone] documented in this encounter Visit Diagnoses Not on filedocumented in this encounter Care Teams Hand Straightener Relationship Specialty Start Date End Date Ryan Metz MD [address] [place] [address] PCP - General 05/15/17 documented as of this encounter
--- OUTSIDE RECORDS SUMMARY | 2024-08-05 12:48 | XMS_ITS ---
Author Organization [facility] Address [address] [place] [address] Care Team Providers Care Osteopathic Medicine Teacher Name Role Phone Uziel Teofilo Jones MD Unavailable [phone] Arian Eaton MD Unavailable [phone] Nathan Fish MD Unavailable [phone] Shara Monreal MD Unavailable [phone] Malorie Malcolm NP Unavailable [phone] Petey York MD Primary Care Provider [phone] Active Problems Problem Noted Date Diagnosed Date Breast pain, right 06/27/2022 Invasive ductal carcinoma of breast, female, rig ht 07/30/2021 Encounter for fitting and adjustment of vascular catheter 07/30/2021 Overview (07/30/2021): Added automatically from request for surgery [id number] Malignant neoplasm 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, estrogen receptor negative 07/23/2021 Cancer Staging:Clinical stage from 07/20/2021:Stage IB(cT1c, cN0, cM0, G3, ER-, WV-, HER2-) - Signed by Arian Eaton MD on 07/30/2021 Pathologic stage from 02/10/2022:No Stage Recommended(ypT0, pN0(sn), cM0, GX, ER- , WV-, HER2-) - Signed by Arian Eaton MD on 03/09/2022 Endometriosis 10/22/2019 Overview (10/22/2019): Added automatically from request for surgery [id number] Pelvic and perineal pain 10/22/2019 Overview (10/22/2019): Added automatically from request for surgery [id number] Persistent proteinuria 10/25/2018 Recurrent UTI 10/25/2018 Asymptomatic [...] from the original note were not included. [facility] [address] This Survivorship Care Plan is a cancer [...] Information: Primary Care Physician Petey York MD [phone] Keanu Fish [phone] Arian Eaton [phone] Teofilo Triplett [phone] Plastic Surgeon Other Providers Treatment Summary Cancer [...] Stage IB (cT1c, cN0, cM0, G3, ER-, WV-, HER2-) - Signed by Arian Eaton MD on 07/30/2021 - Pathologic stage from 02/10/2022: No Stage Recommended (ypT0, pN0(sn), cM0, GX, ER-, WV-, HER2-) -Signed by Arian Eaton MD on [...] 08/13/2021 End Date 07/27/2022 (Planned) Provider Teofilo Tirplett MD Chemotherapy DOXOrubicin (ADRIAMYCIN) 2 mg/mL IV [...] equivalent: 238.218 mg/m2 (480 mg) Research Studies [id number] in REsults of Immune Checkpoint Inhibitor Tx (DiRECT):Prospective Study of Cancer Survivors Tx'd w anti-PD-1/antiPD-L1 Immunotherapy in a Community Oncology Setting Status On study Active Start Date 08/13/21 NCT [id number] Persistent symptoms or side effects that have [...] breast cancer could run in the family: Gnosticist heritage History of ovarian cancer in the [...] monitoring Every 3 months while on Herceptin PUBLIC RELATIONS SENIOR ASSOCIATE: No care steam finisher to display Pap/pelvic exam (woman only) As [...] Help learning to eat healthier, call the engineering lecturer at: [facility] . Have an active lifestyle, strive [...] Cancer.Net--http://www.cancer.net/survivorship Livestrong--http://www.livestrong.org/ Livestrong Care Plan--http://www.livestrongcareplan.org/ National Cancer [place]--http://www.cancer.gov/cancertopics/factsheet/therapy/followup National Cancer [place] Facing Forward: Life After Cancer Treatment--http://www.cancer.gov/cancertopics/coping/mmme-zznkx-hycdhyfmg National Coalition for Cancer Survivorship--http://www.canceradvocacy.org/ National Comprehensive Cancer Network-http://www.nccn.org/patients/resources NCCS Cancer Survival Toolbox-- http://www.canceradvocacy.org/toolbox/ CancerCare--http://www.cancercare.org/ Healthcare.gov (insurance marketplace)-- https://www.healthcare.gov/ Cancer and Careers--http://www.cancerandcareers.org/en [place] Cancer Society:The Survivorship Center--http://www.cancer.org/survivorshipcenter Cancer Support Community- http://www.cancersupportcommunity.org/ Cancer Rehabilitation--www.[facility]/rehab Resolved Problems Problem Noted Date Diagnosed Date Resolved Date Post-operative state 02/22/2022 024
--- OUTSIDE RECORDS SUMMARY | 2024-08-05 12:48 | XMS_ITS | Continuity of Care Document ---
Author Organization [email or web address] [place] Address [address] [place] [address] [address] [place] [address] Phone Care Team Providers Care Oncology Coordinator Name Role Phone Donald JAE Marla Unavailable Unavailable Procedures Procedure Date Therapeutic Activities Neuromuscular Re-Ed Therapeutic Activities Neuromuscular Re-Ed Therapeutic Activities Neuromuscular Re-Ed Manual Therapy Hot or Cold Pack Progress Note Therapeutic [...] Date Provider Providers Copied on Encounter [facility] [place] [address], [place], [id number], [place] tel:[phone] [facility] No Information Donald Gutiérrez. . Referring Provider: Delfino Cesar Laura [address], [place], [address]. tel:[phone] [place] [address], [address] [place], [place] [address], [place], [place], [address], tel:[phone] [facility] No Information Donald Gutiérrez. . Referring Provider: Delfino Cesar Laura [address], [place], [address]. tel:[phone] [place] [address] [place], [place] [address], [place], [place], [address], tel:[phone] [facility] No Information Arleth Barker. . Referring Provider: Delfino Cesar BrigetteKaylene [facility] [address], [place], [address]. tel:[phone] [place] [address] [place], [place] [address], [place], [place], [address], tel:[phone] [facility] No Information Arleth Barker. . Referring Provider: Delfino Cesar BrigetteKaylene [address], [place], [address]. tel:[phone] [place] [address] [place], [place] [address], [place], [address], tel:[phone] [facility] No Information Arlethdoreen Barker. . Referring Provider: Delfino Cesar BrigetteKaylene [address], [place], [address]. tel:[phone] [facility] [address] [place], [place] [address], [place], [place], [address], tel:[phone] [facility] No Information Arleth Barker. . Referring Provider: Delfino Cesar BrigetteKaylene [address], [place], [address]. tel:[phone] [facility], [place], [address], [place] tel:[phone] [facility] No Information Arleth Mj. . Referring Provider: Delfino Cesar BrigetteKaylene [address], [place], [address]. tel:[phone] [place] [address] [address], [place], [address], [place] tel:[phone] [facility] No Information Arleth Mj. . Referring Provider: Laura Albright [address], [place], [address]. tel:[phone] [place] [address] [address], [place], [address], tel:[phone] [facility] No Information Arleth Mj. . Referring Provider: Laura Albright [address], [place], [address]. tel:[phone] [place] [address] [address], [place], [place], [address], tel:[phone] [facility] No Information Arleth Mj. . Referring Provider: Laura Albright [address], [place], [address]. tel:[phone] [facility], [place], [address], [place] tel:[phone] [facility] No Information Arleth Mj. . Referring Provider: Delfino Cesar BrigetteKaylene [address], [place], [address]. tel:[phone] [facility], [place], [address], [place] tel:[phone] [facility] No Information Arleth Barker. . Referring Provider: Delfino Cesar, Larua [address], [place], [address]. tel:[phone] [place], [place] [address] [address], [place], [place], [address], tel:[phone] [facility] No Information Arleth Barker. . Referring Provider: Delfino Cesar Laura [address], [place], [address]. tel:[phone] [place] [address] [address], [place], [address], [place] tel:[phone] [facility] No Information Arlethalex Barker. . Referring Provider: Delfino Cesar BrigetteKaylene [address], [place], [address]. tel:[phone] [place], [place] [address], [place], [place], [address], tel:[phone] [facility] No Information Arleth Barker. . Referring Provider: Delfino Cesar BrigetteKaylene [address], [place], [address]. tel:[phone] [place] [address] [place] [address], [place], [place], [address], tel:[phone] [facility] No Information Arleth Barker. . Referring Provider: Delfino Cesar BrigetteKaylene [address], [place], [address]. tel:[phone] [place], [place] [address], [place], [place], [address], tel:[phone] [facility] No Information Arleth Barker. . Referring Provider: Delfino Cesar BrigetteKaylene [address], [place], [address]. tel:[phone] [place], [place] [address] [address], [place], [address], [place] tel:[phone] [facility] No Information Arleth Barker. . Referring Provider: Delfino Cesar, Laura [facility] [address], [place], [address]. tel:[phone] [place] [address] [address] [facility], [place], [place], [address], tel:[phone] [facility] No Information Arleth Barker. . Referring Provider: Delfino Cesar Laura [facility] [address], [place], [address]. tel:[phone] [place] [address], [address] [facility] [facility], [place], [place], [address], tel:[phone] [facility] No Information Arleth Barker. . Referring Provider: Delfino Cesar BrigetteKaylene [facility] [address], [place], [address]. tel:[phone] [place] [address] [address] [facility], [place], [place], [address], tel:[phone] [facility] No Information Arleth Barker. . Referring Provider: Delfino Cesar BrigetteKaylene [facility] [address], [place], [address]. tel:[phone] [place] [address] [address], [place], [place], [address], tel:[phone] [facility] No Information Arleth Barker. . Referring Provider: Delfino Cesar BrigetteKaylene [facility] [address], [place], [address]. tel:[phone] [place] [address] [address], [place], [place], [address], tel:[phone] [facility] No Information Arleth Barker. . Referring Provider: Delfino Cesar, [address] [facility] [address], [place], [address]. tel:[phone] Family History Family Member Type Diagnosis Age At Onset No Information Payers Payer name Insurance type Covered alliance party ID Renan caba(annie Rey [id number] Geena GALEANO LI 00 Social History Type [...]
--- OUTSIDE RECORDS SUMMARY | 2024-08-05 12:48 | XMS_ITS | Continuity of Care Document ---
Author Organization [employer] [place] Address [address] [place] [address] [address] [place] [address] Phone Care Team Providers Care Manager Baby Name Role Phone Donald JAE Marla Unavailable [...] Date Provider Providers Copied on Encounter [facility] [address], [place], [place], [address], [place] tel:[phone] [facility] No Information Donald Gutiérrez. . Referring Provider: Delfino Cesar Laura [address], [place], [address]. tel:[phone] [place] [address], [address] [place], [place] [address], [place], [place], [address], tel:[phone] [facility] No Information Donald Gutiérrez. . Referring Provider: Delfino Cesar Laura [address], [place], [address]. tel:[phone] [place] [address] [place], [place] [address], [place], [address], tel:[phone] [facility] No Information Arleth Barker. . Referring Provider: Delfino Cesar Brig[facility]Kaylene [facility] [address], [place], [address]. tel:[phone] [place] [address] [place], [place] [address], [place], [place], [address], tel:[phone] [facility] No Information Arleth Barker. . Referring Provider: Delfino Cesar BrigetteKaylene [address], [place], [address]. tel:[phone] [place] [address] [place], [place] [address], [place], [place], [address], tel:[phone] [facility] No Information Arlethdoreen Barker. . Referring Provider: Delfino Cesar BrigetteKaylene [address], [place], [address]. tel:[phone] [facility] [address] [place], [place] [address], [place], [place], [address], tel:[phone] [facility] No Information Arleth Barker. . Referring Provider: Delfino Cesar BrigetteKaylene [address], [place], [address]. tel:[phone] [facility], [place], [place], [address], [place] tel:[phone] [facility] No Information Arleth Mj. . Referring Provider: Delfino Cesar BrigetteKaylene [address], [place], [address]. tel:[phone] [place] [address] [address], [place], [place], [address], [place] tel:[phone] [facility] No Information Arleth Mj. . Referring Provider: Laura [place] [address], [place], [address]. tel:[phone] [place], [place] [address], [place], [place], [address], tel:[phone] [facility] No Information Arleth Mj. . Referring Provider: Laura [place] [address], [place], [address]. tel:[phone] [place], [place] [address], [place], [place], [address], tel:[phone] [facility] No Information Arleth Mj. . Referring Provider: Laura [place] [address], [place], [address]. tel:[phone] [facility], [place], [place], [address], [place] tel:[phone] [facility] No Information Arleth Mj. . Referring Provider: Delfino Cesar BrigetteKaylene [address], [place], [address]. tel:[phone] [facility], [place], [place], [address], [place] tel:[phone] [facility] No Information Arleth Barker. . Referring Provider: Delfino Cesar, Laura [address], [place], [address]. tel:[phone] [place], [place] [address] [address], [place], [place], [address], tel:[phone] [facility] No Information Arleth Barker. . Referring Provider: Delfino Cesar Laura [address], [place], [address]. tel:[phone] [place] [address] [address], [place], [place], [address], [place] tel:[phone] [facility] No Information Arlethalex Barker. . Referring Provider: Delfino Cesar BrigetteKaylene [address], [place], [address]. tel:[phone] [place], [place] [address] [address], [place], [place], [address], tel:[phone] [facility] No Information Arleth Barker. . Referring Provider: Delfino Cesar BrigetteKaylene [address], [place], [address]. tel:[phone] [place] [address] [place], [place] [address], [place], [place], [address], tel:[phone] [facility] No Information Arleth Barker. . Referring Provider: Delfino Cesar BrigetteKaylene [address], [place], [address]. tel:[phone] [place], [place] [address] [address], [place], [place], [address], tel:[phone] [facility] No Information Arleth Barker. . Referring Provider: Delfino Cesar BrigetteKaylene [address], [place], [address]. tel:[phone] [place], [place] [address], [place], [place], [address], [place] tel:[phone] [facility] No Information Arleth Barker. . Referring Provider: Delfino Cesar, Laura [facility] [address], [place], [address]. tel:[phone] [place] [address] [address] [facility], [place], [place], [address], tel:[phone] [facility] No Information Arleth Barker. . Referring Provider: Delfino Cesar Laura [facility] [address], [place], [address]. tel:[phone] [place] [address], [address], [place], [place], [address], tel:[phone] [facility] No Information Arleth Barker. . Referring Provider: Delfino Cesar BrigetteKaylene [facility] [address], [place], [address]. tel:[phone] [place] [address] [address], [place], [place], [address], tel:[phone] [facility] No Information Arleth Barker. . Referring Provider: Delfino Cesar BrigetteKaylene [facility] [address], [place], [address]. tel:[phone] [place] [address] [address], [place], [place], [address], tel:[phone] [facility] No Information Arleth Barker. . Referring Provider: Delfino Cesar BrigetteKaylene [facility] [address], [place], [address]. tel:[phone] [place], [place] [address], [place], [place], [address], tel:[phone] [facility] No Information Arleth Barker. . Referring Provider: Delfino Cesar, [address] [facility] [address], [place], [address]. tel:[phone] Family History Family Member Type Diagnosis Age At Onset No Information Payers Payer name Insurance type Covered green party ID Renan caba(annie Rey [id number] Geena GALEANO LI 00 Social History Type [...]
--- OUTSIDE RECORDS SUMMARY | 2024-08-05 12:48 | XMS_ITS | Clinical Summary ---
Author Organization [facility] Address [address] [place] [address] Care Team Providers Care Blood Tester Name Role Phone Uziel Teofilo Jones MD Unavailable [phone] Arian Eaton MD Unavailable [phone] Nathan Fish MD Unavailable [phone] Shara Monreal MD Unavailable [phone] Malorie Malcolm NP Unavailable Petey York MD Primary Care Provider [phone] Allergies Active Allergy Reactions Criticality Noted Date [...] total) by mouth daily 07/24/19 24 Active Linzess 72 mcg capsule Take 1 capsule (72 mcg total) by mouth daily Active omeprazole (PriLOSEC) 40 mg capsule Take 1 capsule (40 mg total) by mouth daily 04/30/19 25 Active levothyroxine (SYNTHROID) 75 mcg tablet TAKE 1 TABLET BY MOUTH EVERY MORNING BEFORE BREAKFAST 90 tablet 1 07/03/19 25 Active Active Problems Problem Noted Date Diagnosed Date Breast pain, right 06/27/2022 Invasive ductal carcinoma of breast, female, rig ht 07/30/2021 Encounter for fitting and adjustment of vascular catheter 07/30/2021 Overview (07/30/2021): Added automatically from request for surgery [id number] Malignant neoplasm of upper- inner quadrant of [...] (10/22/2019): Added automatically from request for surgery [id number] Pelvic and perineal pain 10/22/2019 Overview (10/22/2019): Added automatically from request for surgery [id number] Persistent proteinuria 10/25/2018 Recurrent UTI 10/25/2018 Asymptomatic microscopic hematuria 10/25/2018 Acute kidney injury 12/13/2017 Resolved Problems Problem Noted Date Diagnosed Date Resolved Date Post-operative state 02/22/2022 024 Encounters Date Type Department Care Team Description 07/12/2024 [facility]phone [facility] [address] [facility] [address] [place] [address] Nathan Fish MD from Last 3 Months Surgical History Surgery [...] on file Legal Sex 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 Gender Identity Not on file Sexual Orientation Not on file Occupation Industry Job Start Date Job End Date [employer] [facility] Not on file Not on file Not on file Obstetrics History Para Term AB IAB SAB Ectopic Multiple Livin g Live Births 0 0 0 0 0 0 0 0 0 0 0 Last Filed Vital Signs Vital Sign Reading Time Taken Comments Blood Pressure 126/82 05/06/2024 1:56 PM WOOL PULLER Pulse 98 05/06/2024 1:56 PM WOOL PULLER Temperature 36.1 C (97 F) 05/06/2024 2:30 PM WOOL PULLER Respiratory Rate 18 05/06/2024 1:56 PM WOOL PULLER Oxygen Saturation 100% 05/06/2024 1:56 PM WOOL PULLER Inhaled Oxygen Concentration - - Weight 95.7 kg (211 lb) 05/06/2024 2:30 PM WOOL PULLER Height 162.6 cm (5' 4) 05/06/2024 2:30 PM WOOL PULLER Body Mass Index 36.22 05/06/2024 2:30 PM WOOL PULLER Plan of Treatment Health Maintenance Due Date [...] this topic Medical Devices Implanted Type Area Washer Blanket Device Identifier Shelf Expiration Date Model / Serial / Lot [employer] Magseed 18ga 7cm Marker Breast Biopsy [id number] Right: Breast [employer] [id number] 12/10/2025 [id number] / / [id number] FAD ? IO [facility] Trimark Second Marker Breast Biopsy Disposable Trimark Td 2s 13-Mr - [id number] Implanted:Qty: 1 on 02/28/2024 by Consuelo Altman MD at [facility] Right: Breast FAD ? IO [facility] [id number] 06/13/2025 TRIMARK TD 2S 13-MR / / [id number] Explanted Type Area Washer Blanket Device Identifier Shelf Expiration Date Model / Serial / Lot [employer] Powerport Isp Mri Airguard 8fr 1 Lumen Attachable Catheter Open Latex Free [id number] - [id number] Implanted:Qty: 1 on 08/06/2021 by Koffi [place] MD at [facility] Explanted:Qty: 1 Right: Chest [employer] 09/09/2022 [id number] / / [id number] Procedures Procedure Name Priority Date/Time Associated Diagnosis [...] present. Clinician provided ICD10 Comment [facility] - Comment: Z12.4 Z11.51 Performed by Comment [facility] - Comment:Regis Oconnell, [employer] hnologist (ASCP) Electronically signed by Comment [facility] - Comment:Kim Falcon MD, [place] thologist . . [facility] - Pathologist provided ICD10 Comment [facility] - Comment:R87.610 Note: Comment [facility] - Comment: The Pap smear is a screening test designed to aid in the detection of premalignant and malignant conditions of the uterine cervix. It is not a diagnostic procedure and should not be used as the sole means of detecting cervical cancer. Both false-positive and false-negative reports do occur. Test methodology Comment [facility] - Comment: This liquid based ThinPrep(R) pap test was screened with the use of an image guided system. HPV Aptima Negative Negative [facility] Comment: This nucleic acid amplification test detects fourteen high-risk HPV types (16,18,31,33,35,39,45,51,52,56,58,59,66,68) without differentiation. HPV Genotype Reflex Comment [facility] - Comment:Criteria not met, HP V Genotype not performed. Thin prep 09/18/2023 4:32 AM CDT 09/18/2023 Narrative [facility] - 09/20/2023 2:11 PM CDT Performed at: - [address] [id number] General Service Technician: Yumiko Hubbard MD, Phone: [phone] Performed at: 02 - [address] [id number] General Service Technician: Yumiko Hubbard MD, Phone: [phone] Specimen Comment: Source.............Cervix;Endocervix Specimen Comment: No. of containers..01 ThinPrep Vial us Shara Monreal MD LAB CYTOLOGY ORDERABLES F inal Result [facility] 02 * Diagnostic Mammogram Bilateral [...] you for your referral. Electronically signed by: MD Arnaud [place] 07/21/2023 3:39 PM CDT EXAM: DIAGNOSTIC MAMMOGRAM [...] CDT) Hep C Ab Nonreactive Nonreactive [facility] Comment: Interpretive Data Nonreactive: Antibodies to [...] 1:00 PM CDT 07/11/2022 7:17 PM CDT us Shara Monreal MD LAB MICROBIOLOGY - GENERA L ORDERABLES Edited Result - Final [facility] [address] Department [place] [address] from Last 3 Months or Most Recently Relevant to Health Maintenance Insurance [facility] O Care Teams Blood Tester Relationship Specialty Start Date End Date Petey York MD [facility] [place] [address] PCP - General Family Medicine 03/01/22 Teofilo Triplett MD [address] [place] [address] Medical Oncologist/Bezel Cutter Hematology and Oncology 07/22/21 Arian Eaton MD [address] [place] [address] Consulting Physician Radiation Oncology 07/22/21 Nathan Fish MD [address] [place] [address] Consulting Physician Surgical Oncology 07/28/21 Shara Monreal MD [address] [place] [address] Consulting Physician Obstetrics and Gynecology 07/28/21 Malorie Malcolm NP [address] [place] [address] Nurse Practitioner Surgery 12/22/21
--- OUTSIDE RECORDS SUMMARY | 2024-08-05 12:48 | XMS_ITS | Clinical Summary ---
Author Organization [facility] Address [address] [place] [address] Care Team Providers Care Microsoft Access Developer Name Role Phone Ryan Metz MD Primary Care Provider [phone] Source Comments [facility],non-owned Affiliates and Associated Physician Practices is amultiple site organization consisting of ambulatory clinics and hospital sitesin [place], [place], [place] and [place]. This disclosure is being madepursuant to the Care Everywhere program and may not contain all information available regarding this patient. 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
--- OUTSIDE RECORDS SUMMARY | 2024-08-05 12:48 | XMS_ITS | Encounter Summary ---
Author Organization [facility] Address [address] [place] [address] Care Team Providers Care Parlor Maid Name Role Phone Ryan Metz MD Primary Care Provider [phone] Encounter Details Date Type Department Care Team (Late st Contact Info) Description 12/28/2023 Lab Requisition [facility] - Pathology Lab [address] [place] [address] Enrrique Gandara MD [address] [facility] [address] [place] [id number] Illness, unspecified Social History Tobacco Use Types Packs/Day Years Used Date Smoking Tobacco: Never Smokeless Tobacco: Never Alcohol Use Standard Drinks/Week Comments Yes 0 (1 standard drink = 0.6 oz pur e alcohol) 2-3 drinks per month Comments No Sex and Gender Information Value Date Recorded Sex Assigned at Not on file Legal Sex Female 6:30 PM WEB PRODUCTION ARTIST Gender Identity Not on file Sexual Orientation [...] SLIDE PREP HISTOLOGY Routine 02/15/2024 10:00 AM WEB PRODUCTION ARTIST Illness, unspecified documented in this encounter Results * SLIDE PREP HISTOLOGY (02/15/2024 10:00 AM WEB PRODUCTION ARTIST) Client Specimen ID # [id number] 06/21/2024 1:21 PM CDT [facility] Number of Blocks Received 0 06/21/2024 1:21 PM CDT [facility] Number of Slides 1 06/21/2024 1:21 PM CDT [facility] Number of Control Slides 1 06/21/2024 1:21 PM CDT [facility] Pathology/Cytolo gy 02/15/2024 10:00 AM WEB PRODUCTION ARTIST 12/28/2023 12:44 PM CDT us Enrrique Gandara MD LAB - PATHOLOGY/CYT OLOGY ORDERABLES Final Result [facility] [address] [place] [address], [facility] [phone] documented in this encounter Visit Diagnoses Diagnosis Illness, unspecified documented in this encounter Care Teams Parlor Maid Relationship Specialty Start Date End Date Ryan Metz MD [address] [place] [address] PCP - General 05/15/17 documented as of this encounter
--- OUTSIDE RECORDS SUMMARY | 2024-08-05 12:48 | XMS_ITS ---
Author Organization [facility] [place] ([address]) Address [address] [place] [address] Care Team Providers Care Edi Programmer Analyst Name Role Phone Chela PRAJAPATI, Dr Angelo Primary Care Provider Nita Naqvi [facility] [phone] REASON FOR VISIT SCIT (Aeroallergen) Social History Sex Assigned At : Social History Observation Description Sex Assigned At Female Encounters Encounter Location Date Provider Diagnosis [address] [place] [address] 07/29/2024 Nita Conrad Plan Of Treatment Next Appt Details Provider Name:Nita felton, 08/08/2024 04:50:00 PM, [facility] [address], [address], Provider Name:Nita felton, 08/12/2024 05:00:00 PM, [facility] [place], [address], Provider Name:Nita felton, 08/26/2024 05:00:00 PM, [facility] [place], [address], Progress Notes * Latrice TATEDOB:1990 (34 yo F)Acc No.[id number]:07/29/2024 SCIT-Aeroallergen Patient: Latrice ROMERO Provider: James Conrad MD :1990 A ge:34 Y S ex:Female Date:07/29/2024 Address:[address] [place] [address] Pcp:Dr Petey York MD Subjective: * Chief Complaints: * 1 . SCIT (Aeroallergen). * Medical History: Objective: * Vitals: Assessment: Plan: * Treatment: * Billing Information: * Visit Code: * Procedure Codes: * Electronic signature of An Conrad MD on 08/05/2024 at 12:47 PM CDT Sign off status: Pending * Provider: James Conrad MD Date: 0 07/29/2024 Generated for Ortiz randall/Nina/Candiitting on: 0 08/05/2024 12:47 PM CDT
--- OUTSIDE RECORDS SUMMARY | 2024-08-05 12:48 | XMS_ITS | Referral Summary ---
Author Organization [facility] Address [address] [place] [address] Care Team Providers Care Agricultural Extension Agent Name Role Phone Uziel Teofilo Jones MD Unavailable Arian Eaton MD Unavailable [phone] Nathan Fish MD Unavailable [phone] Shara Monreal MD Unavailable Malorie Malcolm NP Unavailable Petey York MD Primary Care Provider [phone] Encounters Date Type Department Care Team Description 07/12/2024 [facility] [address] [facility] [address], [place] [address] Nathan Fish MD from Last 3 Months Allergies Active Allergy [...] (07/30/2021): Added automatically from request for surgery [id number] Malignant neoplasm 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, estrogen receptor negative 07/23/2021 Cancer Staging:Clinical stage from 07/20/2021:Stage IB(cT1c, cN0, cM0, G3, ER-, TX-, HER2-) - Signed by Arian Eaton MD on 07/30/2021 Pathologic stage from 02/10/2022:No Stage Recommended(ypT0, pN0(sn), cM0, GX, ER- , TX-, HER2-) - Signed by Arian Eaton MD on 03/09/2022 Endometriosis 10/22/2019 Overview (10/22/2019): Added automatically from request for surgery [id number] Pelvic and perineal pain 10/22/2019 Overview (10/22/2019): Added automatically from request for surgery [id number] Persistent proteinuria 10/25/2018 Recurrent UTI 10/25/2018 Asymptomatic [...] on file Legal Sex Female 12:06 AM RESEARCH ANIMAL FACILITY SUPERVISOR Gender Identity Not on file Sexual Orientation Not on file Occupation Industry Job Start Date Job End Date [employer] Not on file Not on file Not on file Last Filed Vital Signs Vital Sign Reading Time Taken Comments Blood Pressure 126/82 05/06/2024 1:56 PM RESEARCH ANIMAL FACILITY SUPERVISOR Pulse 98 05/06/2024 1:56 PM RESEARCH ANIMAL FACILITY SUPERVISOR Temperature 36.1 C (97 F) 05/06/2024 2:30 PM RESEARCH ANIMAL FACILITY SUPERVISOR Respiratory Rate 18 05/06/2024 1:56 PM RESEARCH ANIMAL FACILITY SUPERVISOR Oxygen Saturation 100% 05/06/2024 1:56 PM RESEARCH ANIMAL FACILITY SUPERVISOR Inhaled Oxygen Concentration - - Weight 95.7 kg (211 lb) 05/06/2024 2:30 PM RESEARCH ANIMAL FACILITY SUPERVISOR Height 162.6 cm (5' 4) 05/06/2024 2:30 PM RESEARCH ANIMAL FACILITY SUPERVISOR Body Mass Index 36.22 05/06/2024 2:30 PM RESEARCH ANIMAL FACILITY SUPERVISOR Plan of Treatment Not on file Medical Devices Implanted Type Area Plasma Specialist Device Identifier Shelf Expiration Date Model / Serial / Lot MDLIVE Magseed 18ga 7cm Marker Breast Biopsy [id number] Right: Breast MDLIVE [id number] 12/10/2025 [id number] / / [id number] Pint Please [facility] Trimark Second Marker Breast Biopsy Disposable Trimark Td 2s 13-Mr - [id number] Implanted:Qty: 1 on 02/28/2024 by Consuelo Altman MD at [facility] Right: Breast [facility] [id number] 06/13/2025 TRIMARK TD 2S 13-MR / / [id number] Explanted Type Area Plasma Specialist Device Identifier Shelf Expiration Date Model / Serial / Lot [employer] Powerport Isp Mri Airguard 8fr 1 Lumen Attachable Catheter Open Latex Free [id number] - [id number] Implanted:Qty: 1 on 08/06/2021 by Koffi Brandon MD at [facility] Explanted:Qty: 1 Right: Chest [employer] 09/09/2022 [id number] / / [id number] Procedures Procedure Name Priority Date/Time Associated Diagnosis [...] Z11.51 Performed by Comment [facility] - 01 Comment:Jason Pfeiffer hnologist (ASCP) Electronically signed by Comment [facility] - Comment:Kim Falcon MD, [place] thologist . . [facility] - Pathologist provided ICD10 Comment [facility] - Comment:R87.610 Note: Comment [facility] - 01 Comment: [...] 2:11 PM CDT Performed at: - [address] [id number] Field Laborer: Yumiko Hubbard MD, Phone: [phone] Performed at: - [address] [id number] Field Laborer: Yumiko Hubbard MD, Phone: [phone] Specimen Comment: Source.............Cervix;Endocervix Specimen Comment: No. of containers..01 ThinPrep Vial us Shara Monreal MD LAB CYTOLOGY ORDERABLES F inal Result [facility] PE[facility] 02 * Diagnostic Mammogram Bilateral [...] ASSESSMENT: There is no evidence of malignancy. us Nathan Fish MD IMG MAMMO PROCEDURES Final Result * Hepatitis C antibody (07/11/2022 1:00 PM CDT) Hep C Ab Nonreactive Nonreactive [facility] Comment: Interpretive Data Nonreactive: Antibodies [...] L ORDERABLES Edited Result - Final [facility] [address] Department [place] [address] from Last 3 Months or Most Recently Relevant to Health Maintenance Insurance [facility] HMO [facility] O Care Teams Agricultural Extension Agent Relationship Specialty Start Date End Date Petey York MD [address] [place] [address] PCP - General Family Medicine 03/01/22 Teofilo Triplett MD [address] [place] [address] Medical Oncologist/Driller'S Offsider Hematology and Oncology 07/22/21 Arian Eaton MD [address] DEPT RADIATION ONCOLOGY [place], [place] [id number] Consulting Physician Radiation Oncology 07/22/21 Nathan Fish MD [address] [place] [address] Consulting Physician Surgical Oncology 07/28/21 Shara Monreal MD [address] [place], [place] [id number] Consulting Physician Obstetrics and Gynecology 07/28/21 Malorie Malcolm NP [address] [place] [address] Nurse Practitioner Surgery 12/22/21
[2024-08-05 12:55] VITALS: BP 104/76; PULSE 84; RESP 17; TEMP 36.4; O2SAT 100
[2024-08-05 13:04] LABS: EDUAAPPEAR Clear; EDUABILI Negative (Negative); EDUABLOOD Trace (Negative); EDUACOLOR1 Yellow; EDUAGLUCOSE Negative (Negative); EDUAKETONE Negative (Negative); EDUALEUKO Negative (Negative); EDUANITRATE Negative (Negative); EDUAPROTEIN Negative (Negative); EDUAUROBILI 0.2
--- NOTE | 2024-08-05 14:26 | ED_ITS ---
HPI - Abdominal Pain General Chief Complaint: Urogenital-Female Stated Complaint: UTI Time Seen by Provider: 08/05/24 13:05 Source: patient and RN notes reviewed Mode of arrival: ambulatory Limitations: no limitations History of Present Illness HPI narrative: 34-year-old female presents Express Care complaining of pain with urination x3 days. Patient was recently here in treated for UTI and finished her antibiotics as directed. Patient's last urine culture showed no evidence of bacteria. Patient said that her symptoms get better while taking antibiotics and then over the last 2 days she has noticed that she has pain went into her bladder. Patient denies any burning with urination, increased frequency, hesitancy, back pain, nausea, vomiting, diarrhea, abdominal pain, or flank pain. Patient cannot get in to see her primary care provider until August. Patient does states she has a history of endometriosis says she does developed pain near her menstruation. Patient says she is not currently on her period. But says she should be starting it in the next 6 days. Patient denies any vaginal discharge, vaginal irritation, painful intercourse, pelvic pain, or any concern for STIs. Related Data Home Medications ?Medication ?Instructions ?Recorded ?Confirmed ?Last Taken ?Type cetirizine 10 mg tablet (24Hour 10 mg PO DAILY 05/27/24 06/26/24 Unknown History Allergy) epinephrine 0.3 mg/0.3 mL 0.3 ml IM [id number] PRN anaphylaxis 05/27/24 06/26/24 Unknown History injection, auto-injector (EpiPen) Allergies Allergy/AdvReac Type Severity Reaction Status Date / Time carboplatin Allergy Severe Anaphylaxis Verified 08/05/24 12:46 sulfamethoxazole (From Allergy Unknown Unknown Verified 08/05/24 12:46 Sulfamethoxazole-Trimethoprim) trimethoprim (From Allergy Unknown Unknown Verified 08/05/24 12:46 Sulfamethoxazole-Trimethoprim) ciprofloxacin AdvReac Intermediate Diarrhea Verified 08/05/24 12:46 doxycycline AdvReac Intermediate Vomiting Verified 08/05/24 12:46 oxycodone (From Percocet) AdvReac Intermediate Vomiting Verified 08/05/24 12:46 [id number]-[id number]-IxO Reductase AdvReac Intermediate Myalgias Verified 08/05/24 12:46 Inhibitor nitrofurantoin AdvReac Mild Rash Verified 08/05/24 12:46 Review of Systems Review of Systems: CONSTITUTIONAL: Denies fever, chills, body aches, or sweats. EYES: Denies visual changes, redness, or discharge. ENT: Denies rhinorrhea, congestion, sore throat, or otalgia. CARDIOVASCULAR: Denies chest pain, palpitations, or edema. RESPIRATORY: Denies cough or dyspnea. GASTROINTESTINAL: Denies abdominal pain, nausea, vomiting, or diarrhea. GENITOURINARY: Positive for dysuria. Negative for increased frequency, hematuria, vaginal discharge, painful intercourse, vaginal bleeding, or suprapubic pain. SKIN: Denies rash or itching. MUSCULOSKELETAL: Denies back pain, joint pain, or myalgia. NEUROLOGIC: Denies headache, numbness, or weakness. PSYCHIATRIC: Denies anxiety or depression. All other systems reviewed are negative, except as documented in HPI. [facility] Past Medical History Medical History Vitamin B12 deficiency Biliary dyskinesia Nausea and vomiting Left sided abdominal pain Heartburn Dyslipidemia Breast lump Breast pain History of breast cancer Endometriosis determined by laparoscopy Abnormal breast biopsy Endometriosis Breast cancer right breast, medial position lumpectomy 02-10-2022, Dr Kiser Vitamin D deficiency Elevated cholesterol Pain of left calf Hematuria Triple negative breast cancer Surgical History Surgical History S/P laparoscopic cholecystectomy S/P myringotomy with insertion of tube Hx of myomectomy History of adenoidectomy History of breast biopsy History of tonsillectomy Social History Social History Smoking status: Never smoker Second hand tobacco smoke exposure: No Alcohol intake: never Drinks per week: 1 Alcohol use details: rarely Substance use: never Substance use type: does not use Do You Feel Safe in your Home?: Yes Lack of Transportation: No Lack of Food: Never True Current Housing: I Have Housing Concerned About Future Housing: No Difficulty Paying Gas/Electric Bills: No Difficulty Paying for Meds: No Currently Unemployed: No Education: High School Diploma/GED Difficulty w/ Childcare or Family Care: No Living arrangements: alone Occupation/Education: occupation Gender identity (if verbalized by the patient): Female Spiritual care concerns: No Comments At the time of my signature, I reviewed and agree with the nursing past medical, surgical, social, and family history. There is no relevant family history pertinent to the patient complaint. Exam Narrative: GENERAL: This is a well-nourished, well-developed adult, in no apparent distress. They are non ill-appearing, nontoxic appearing. HEAD: normocephalic, atraumatic. EYES: Sclera clear/white. Vision is grossly intact. Conjunctiva normal bilaterally. Extraocular movements intact. EARS: External ears normal,Hearing grossly intact. NOSE: External nose normal THROAT: Mucous membranes moist NECK: Normal range of motion CARDIOVASCULAR: Regular rate and rhythm. S1-S2 are present. No murmurs, clicks, gallops, or rubs RESPIRATORY: Respiratory rate normal, respiratory effort nonlabored, no respiratory distress. Lung sounds are clear auscultation. No adventitious lung sounds heard. GASTROINTESTINAL: Abdomen soft, flat, non-tender, nondistended. Bowel sounds are active. No hepato-splenomegaly, or palpable masses. No guarding. No rebound tenderness. SKIN: warm, Dry, intact with no suspicious lesions or rash, good texture and t urgor. NEURO: awake, alert, and oriented to person, place and time. There were no obvious focal neurologic abnormalities. EXTREMITIES: No joint tenderness, effusion, or edema noted. BACK: Nontender without deformity. No CVA tenderness. Course Course Emergency Course: Portions of this record may have been created with voice recognition software Level of Care: Express Care Visit Vital Signs Vital signs: Vital Signs Temperature 97.6 F 08/05/24 12:55 Pulse Rate 84 08/05/24 12:55 Respiratory Rate 17 08/05/24 12:55 Blood Pressure 104/76 08/05/24 12:55 Pulse Oximetry 100 08/05/24 12:55 Oxygen Delivery Room Air 08/05/24 12:55 Temperature 97.6 F 08/05/24 12:55 Pulse Rate 84 08/05/24 12:55 Respiratory Rate 17 08/05/24 12:55 Blood Pressure 104/76 08/05/24 12:55 Pulse Oximetry 100 08/05/24 12:55 Oxygen Delivery Room Air 08/05/24 12:55 MDM - Abdominal Pain MDM Narrative Medical decision making narrative: Urine dipstick negative for any evidence of infection. It showed trace blood h owever it was lysed. Physical exam is reassuring in, no pain to palpation to the suprapubic region. Urine culture will be sent off and pending. Pain likely could be from her endometriosis. Discussed physical exam findings. Advised supportive measures and signs/symptoms to go to the ER. Pt is appropriate for outpt treatment and f/u. Differential Diagnosis Differential diagnosis: Likely endometriosis and other (Interstitial cystitis, urinary tract infection) Lab Data Attestation: I reviewed the patient's lab results. Labs: Lab Results 08/05/24 Range/Units 13:02 POC Urine Color Yellow POC Urine Clarity Clear POC Urine pH 6.0 POC Ur Specif [place] 1.010 POC Urine Protein Negative (Negative) POC Ur Glucose (UA) Negative (Negative) POC Urine Ketones Negative (Negative) POC Urine Blood Trace (Negative) POC Urine Nitrite Negative (Negative) POC Urine Bilirubin Negative (Negative) POC Urine Urobilinogen 0.2 POC U Leukocyte Esteras Negative (Negative) Discharge Plan Discharge Clinical Impression: Dysuria Patient Disposition: Home Condition: Stable Instructions: Dysuria (ED) Additional Instructions: Your urine dipstick was negative for any evidence of infection. A urine culture will be sent off if it is positive for any bacterial be contacted and started on appropriate antibiotics at that time. Please follow-up with your primary care provider in 3-5 days. You may take Tylenol or ibuprofen as needed for pain or fevers. If you develop abdominal pain, fevers, nausea, vomiting, or any other concerns please go to the ER immediately. Patient Language: [place] Prescriptions: No Action cephalexin 500 mg capsule 500 mg PO Q12H 7 Days Qty: 14 0RF Linzess 72 mcg capsule 72 mcg PO DAILY 90 Days Qty: 90 3RF dicyclomine 10 mg capsule 10 mg PO TID PRN (Reason: abdominal pain) Qty: 90 5RF cetirizine [24Hour Allergy] 10 mg tablet 10 mg PO DAILY epinephrine [EpiPen] 0.3 mg/0.3 mL auto-injector 0.3 ml IM [id number] PRN (Reason: anaphylaxis) Patient Comments: FOR ALLERGY SHOT REACTION levothyroxine 75 mcg capsule 75 mcg PO DAILY Qty: 90 0RF omeprazole 40 mg capsule,delayed release(DR/EC) 40 mg PO DAILY 30 Days Qty: 30 11RF Nexletol 180 mg tablet 180 mg PO DAILY Qty: 90 0RF montelukast [Singulair] 10 mg tablet 10 mg PO DAILY Qty: 90 0RF Follow-up/Referrals: Bhavna Ventura PA-C [Primary Care Provider] - Time of Disposition: 13:20
== END 2024-08-05 13:25 | disposition home or self-care (01) ==
PROVIDERS: PCP Physician Assistant Medical
DX: R30.0 Dysuria (principal); N80.9 Endometriosis, unspecified; E78.00 Pure hypercholesterolemia, unspecified; K82.8 Other specified diseases of gallbladder; R12 Heartburn; Z85.3 Personal history of malignant neoplasm of breast; Z90.11 Acquired absence of right breast and nipple
CPT/HCPCS: 81003; 87086; 99213; G0463

== ENCOUNTER 2025-02-16 12:29 | Emergency (ER) | payer OTHER, SELFPAY ==
--- OUTSIDE RECORDS SUMMARY | 2023-05-01 11:15 | XMS_ITS | Continuity of Care Document ---
Author Organization [facility] Address [address] [place] [address] [address] [place] [address] Phone Care Team Providers Care Coater Operator Insulation Board Name Role Phone Donald JAE Marla Unavailable Unavailable Procedures Procedure Date Therapeutic Activities Neuromuscular Re-Ed Therapeutic Activities Neuromuscular Re-Ed Therapeutic Activities Manual Therapy Neuromuscular Re-Ed Hot or Cold Pack Progress Note Therapeutic Activities Neuromuscular Re-Ed Manual Therapy Hot or Cold Pack Therapeutic Activities Neuromuscular Re-Ed Manual Therapy Hot or Cold Pack Therapeutic Activities Neuromuscular Re-Ed Manual Therapy Hot or Cold Pack Therapeutic Activities Manual Therapy Neuromuscular Re-Ed Therapeutic Activities Neuromuscular Re-Ed Manual Therapy Hot or Cold Pack Therapeutic Activities Neuromuscular Re-Ed Manual Therapy Therapeutic Activities Neuromuscular Re-Ed Manual Therapy Hot or Cold Pack Therapeutic Activities Neuromuscular Re-Ed Manual Therapy Therapeutic Activities Manual Therapy Neuromuscular Re-Ed Therapeutic Activities Neuromuscular Re-Ed Manual Therapy Hot or Cold Pack Therapeutic Activities Neuromuscular Re-Ed Manual Therapy Hot or Cold Pack Therapeutic Activities Neuromuscular Re-Ed Manual Therapy Therapeutic Activities Neuromuscular Re-Ed Manual Therapy Hot or Cold Pack Therapeutic Activities Neuromuscular Re-Ed Hot or Cold Pack Manual Therapy Therapeutic Activities Neuromuscular Re-Ed Manual Therapy Hot or Cold Pack Therapeutic Activities Neuromuscular Re-Ed Manual Therapy Therapeutic Activities Manual Therapy Neuromuscular Re-Ed Hot or Cold Pack Therapeutic Activities Neuromuscular Re-Ed Manual Therapy Therapeutic Activities Neuromuscular Re-Ed Manual Therapy Hot or Cold Pack PT Evaluation Low Complexity Therapeutic Activities Neuromuscular Re-Ed Advance Directives Directive Yes / No Effective Date File Name No Information Encounters Encounter Description Practice Location Reason(s) For Visit Diagnoses Date Provider Providers Copied on Encounter [facility] [address], [place], [place], [id number], [place] tel:[phone] [facility] No Information Donald Gutiérrez. . Referring Provider: Delfino Cesar [address], [place], [address]. tel:[phone] [place] [address], [address] [place], [place] [address], [place], [place], [address], tel:[phone] [facility] No Information Donald Gutiérrez. . Referring Provider: Delfino Cesar Laura [address], [place], [address]. tel:[phone] [place] [address] [place], [place] [address], [place], [place], [address], tel:[phone] [facility] No Information Arleth Barker. . Referring Provider: Delfino Cesar [facility] [address], [place], [address]. tel:[phone] [place] [address] [place], [place] [address], [place], [place], [id number], tel:[phone] [facility] No Information Arleth Barker. . Referring Provider: Delfino Cesar BrigetteKaylene [address], [place], [address]. tel:[phone] [place] [address] [place], [place] [address], [place], [place], [address], tel:[phone] [facility] No Information Arlethdoreen Barker. . Referring Provider: Delfino Cesar BrigetteKaylene [address], [place], [address]. tel:[phone] [facility] [address] [place], [place] [address], [place], [place], [address], tel:[phone] [facility] No Information Arleth Barker. . Referring Provider: Delfino Cesar BrigetteKaylene [address], [place], [address]. tel:[phone] [facility], [place], [place], [address], [place] tel:[phone] [facility] No Information Arleth Mj. . Referring Provider: Delfino Cesar BrigetteKaylene [address], [place], [address]. tel:[phone] [place] [address] [address], [place], [place], [address], [place] tel:[phone] [facility] No Information Arleth Mj. . Referring Provider: Laura Albright [address], [place], [address]. tel:[phone] [place], [place] [id number], [place], [place], [address], tel:[phone] [facility] No Information Arleth Mj. . Referring Provider: Laura Albright [address], [place], [address]. tel:[phone] [place], [place] [id number], [place], [place], [address], tel:[phone] [facility] No Information Arleth Mj. . Referring Provider: Laura Albright [address], [place], [address]. tel:[phone] [facility], [place], [place], [address], [place] tel:[phone] [facility] No Information Arleth Mj. . Referring Provider: Delfino Cesar BrigetteKaylene [address], [place], [address]. tel:[phone] [facility], [place], [place], [address], [place] tel:[phone] [facility] No Information Arleth Barker. . Referring Provider: Delfino Cesar, Laura [address], [place], [address]. tel:[phone] [place], [place] [id number], [place], [place], [address], tel:[phone] [facility] No Information Arleth Bakrer. . Referring Provider: Delfino Cesar [address], [place], [address]. tel:[phone] [place] [address] [address], [place], [place], [address], [place] tel:[phone] [facility] No Information Arlethalex Barker. . Referring Provider: Delfino Cesar BrigetteKaylene [address], [place], [address]. tel:[phone] [place], [place] [id number], [place], [place], [address], tel:[phone] [facility] No Information Arleth Barker. . Referring Provider: Delfino Cesar BrigetteKaylene [address], [place], [address]. tel:[phone] [place] [address] [place], [place] [address], [place], [id number], tel:[phone] [facility] No Information Arleth Barker. . Referring Provider: Delfino Cesar BrigetteKaylene [address], [place], [address]. tel:[phone] [place], [place] [id number], [place], [place], [address], tel:[phone] [facility] No Information Arleth Barker. . Referring Provider: Delfino Cesar BrigetteKaylene [address], [place], [address]. tel:[phone] [place], [place] [phone], [place], [place], [address], [place] tel:[phone] [facility] No Information Arleth Barker. . Referring Provider: Delfino Cesar, Laura [facility] [address], [place], [address]. tel:[phone] [place] [address] [address], [place], [place], [address], tel:[phone] [facility] No Information Arleth Barker. . Referring Provider: Delfino Cesar Laura [facility] [address], [place], [address]. tel:[phone] [place] [address], [address], [place], [place], [address], tel:[phone] [facility] No Information Arleth Barker. . Referring Provider: Delfino Cesar BrigetteKaylene [facility] [address], [place], [address]. tel:[phone] [place] [address] [address], [place], [place], [address], tel:[phone] [facility] No Information Arleth Barker. . Referring Provider: Delfino Cesar BrigetteKaylene [facility] [address], [place], [address]. tel:[phone] [place] [address] [address], [place], [place], [address], tel:[phone] [facility] No Information Arleth Barker. . Referring Provider: Delfino Cesar Brig[facility]Kaylene [facility] [address], [place], [address]. tel:[phone] [place], [place] [id number], [place], [place], [address], tel:[phone] [facility] No Information Arleth Barker. . Referring Provider: Delfino Cesar, [address] [facility] [address], [place], [address]. tel:[phone] Family History Family Member Type Diagnosis Age At Onset No Information Payers Payer name Insurance type Covered republican ID Renan caba(annie Rey [id number] Geena GALEANO LI 00 Social History Type Description Quantity Date Captured Comments Sex Female Smoking Status No Information Chief Complaint And Reason For Visit No Information Reason For Referral Reason For Referral No Information History Of Present Illness Encounter Date Complaint History Of Prese nt Illness No Information Functional Status Date Functional Assessmen t No Information Instructions Date Instruction Additional Infor mation Giving encouragement to exercise Related to Overweight Giving encouragement to exercise Related to Overweight Assessments Type Assessment Date No Information Patient Care Teams Name Effective Dates (start - stop) Status Members No Information
--- OUTSIDE RECORDS SUMMARY | 2025-01-08 11:30 | XMS_ITS ---
Author Organization [facility] [place] ([address]) Address [address] [place] [address] Care Team Providers Care Optical Advisor Name Role Phone Chela PRAJAPATI, Dr Angelo Primary Care Provider Nita Naqvi [facility] [phone] REASON FOR VISIT SCIT - Traditional Schedule Allergy Immunotherapy Social History Sex Assigned At : Social History Observation Description Sex Assigned At Female Encounters Encounter Location Date Provider Diagnosis [address] [address] 01/08/2025 Nita Conrad Allergic rhinitis du e to pollen J30.1 ; Other allergic rhinitis J30.89 ; Allergic rhinitis due to animal (cat) (dog) hair and dander J30.81 and Other chronic allergic conjunctivitis H10.45 Assessments Encounter Date Diagnosis (ICD Code) Assessment Notes Treatment Notes Treatment Clinical Notes Section Notes 01/08/2025 Allergic rhinitis due to pollen (ICD-10 - J30.1) 01/08/2025 Other allergic rhinitis (ICD-10 - J30.89) 01/08/2025 Allergic rhinitis due to animal (cat) (dog) hair and dander (ICD-10 - J30.81) 01/08/2025 Other chronic allergic conjunctivitis (ICD-10 - H10.45) Plan Of Treatment Next Appt Details Follow Up: As scheduled, [place] son: Provider Name:Nita felton, 02/17/2025 05:00:00 PM, [address] [place], [address], Provider Name:Nita felton, 03/17/2025 05:00:00 PM, [address] [place], [address], Progress Notes * Latrice TATEDOB:1990 (35 yo F)Acc No.[id number]:01/08/2025 SCIT-Aeroallergen Patient: Latrice ROMERO Provider: James Conrad MD :1990 A ge:35 Y S ex:Female Date:01/08/2025 Address:[address] [place], [place] [id number] Pcp:Dr Petey York MD Subjective: * Chief [...] Information: * Visit Code: * Procedure Codes: 37417 IMMUNOTHERAPY INJECTIONS. * Electronic signature of An Conrad MD on 02/16/2025 at 12:31 PM HUMAN RESOURCES OPERATIONS COORDINATOR Sign off status: Pending * Provider: James Conrad MD Date: Generated for Ortiz randall/Nina/Denisse on: 04/19/2024 12:31 PM HUMAN RESOURCES OPERATIONS COORDINATOR History and Physical Notes * HPI (History [...]
--- OUTSIDE RECORDS SUMMARY | 2025-01-14 11:00 | XMS_ITS ---
Author Organization [facility] [place] ([address]) Address [address] [place] [address] Care Team Providers Care Volunteer Services Specialist Name Role Phone Chela PRAJAPATI, Dr Angelo Primary Care Provider Nita Naqvi [facility] [phone] REASON FOR VISIT SCIT - Traditional Schedule Allergy Immunotherapy Social History Sex Assigned At : Social History Observation Description Sex Assigned At Female Encounters Encounter Location Date Provider Diagnosis [address] [address] 01/14/2025 Nita Conrad Allergic rhinitis du e to pollen J30.1 ; Other allergic rhinitis J30.89 ; Allergic rhinitis due to animal (cat) (dog) hair and dander J30.81 and Other chronic allergic conjunctivitis H10.45 Assessments Encounter Date Diagnosis (ICD Code) Assessment Notes Treatment Notes Treatment Clinical Notes Section Notes 01/14/2025 Allergic rhinitis due to pollen (ICD-10 - J30.1) 01/14/2025 Other allergic rhinitis (ICD-10 - J30.89) 01/14/2025 Allergic rhinitis due to animal (cat) (dog) hair and dander (ICD-10 - J30.81) 01/14/2025 Other chronic allergic conjunctivitis (ICD-10 - H10.45) Plan Of Treatment Next Appt Details Follow Up: As scheduled, [place] son: Provider Name:Nita felton, 02/17/2025 05:00:00 PM, [address] [place], [address], Provider Name:Nita felton, 03/17/2025 05:00:00 PM, [address] [place], [address], Progress Notes * Latrice BRAYDOB:1990 (35 yo F)Acc No.[id number]:01/14/2025 SCIT-Aeroallergen Patient: Latrice ROMERO Provider: James Conrad MD :1990 A ge:35 Y S ex:Female Date:01/14/2025 Address:[address] [place], [place] [id number] Pcp:Dr Petey York MD Subjective: * Chief [...] Information: * Visit Code: * Procedure Codes: 00698 IMMUNOTHERAPY INJECTIONS. * Electronic signature of An Conrad MD on 02/16/2025 at 12:31 PM BACK ROLLER Sign off status: Pending * Provider: James Conrad MD Date: 03/16/2024 Generated for Ortiz randall/Nina/Denisse on: 04/19/2024 12:31 PM BACK ROLLER History and Physical Notes * HPI (History [...]
--- OUTSIDE RECORDS SUMMARY | 2025-01-20 11:30 | XMS_ITS ---
Author Organization [facility] ([address]) Address [address] [place] [address] Care Team Providers Care Loan Clerk Name Role Phone Chela PRAJAPATI, Dr Angelo Primary Care Provider Nita Naqvi [facility] [phone] REASON FOR VISIT SCIT - Traditional Schedule Allergy Immunotherapy Social History Sex Assigned At : Social History Observation Description Sex Assigned At Female Encounters Encounter Location Date Provider Diagnosis [address] [address] 01/20/2025 Nita Conrad Allergic rhinitis du e to pollen J30.1 ; Other allergic rhinitis J30.89 ; Allergic rhinitis due to animal (cat) (dog) hair and dander J30.81 and Other chronic allergic conjunctivitis H10.45 Assessments Encounter Date Diagnosis (ICD Code) Assessment Notes Treatment Notes Treatment Clinical Notes Section Notes 01/20/2025 Allergic rhinitis due to pollen (ICD-10 - J30.1) 01/20/2025 Other allergic rhinitis (ICD-10 - J30.89) 01/20/2025 Allergic rhinitis due to animal (cat) (dog) hair and dander (ICD-10 - J30.81) 01/20/2025 Other chronic allergic conjunctivitis (ICD-10 - H10.45) Plan Of Treatment Next Appt Details Follow Up: As scheduled, [place] son: Provider Name:Nita felton, 02/17/2025 05:00:00 PM, [address] [place], [address], Provider Name:Nita felton, 03/17/2025 05:00:00 PM, [address] [place], [address], Progress Notes * Latrice BRAYDOB:1990 (35 yo F)Acc No.[id number]:01/20/2025 SCIT-Aeroallergen Patient: Latrice ROMERO Provider: James Conrad MD :1990 A ge:35 Y S ex:Female Date:01/20/2025 Address:[address] [place], [place] [id number] Pcp:Dr Petey York MD Subjective: * Chief [...] Information: * Visit Code: * Procedure Codes: 76436 IMMUNOTHERAPY INJECTIONS. * Electronic signature of An Conrad MD on 02/16/2025 at 12:32 PM HAND FRAME SURGICAL ELASTIC KNITTER Sign off status: Pending * Provider: James Conrad MD Date: 03/22/2024 Generated for Ortiz randall/Nina/Denisse on: 04/19/2024 12:32 PM HAND FRAME SURGICAL ELASTIC KNITTER History and Physical Notes * HPI (History [...]
--- OUTSIDE RECORDS SUMMARY | 2025-02-14 14:44 | XMS_ITS | Encounter Summary ---
Author Organization [facility] Address [address] [place] [address] Care Team Providers Care Pet Walker Name Role Phone Uziel Teofilo Jones MD Unavailable [phone] Arian Eaton MD Unavailable [phone] Nathan Fish MD Unavailable [phone] Shara Monreal MD Unavailable [phone] Malorie Malcolm NP Unavailable Bhavna Ventura Primary Care Provider [phone] Reason for Visit * Diagnostic Imaging (Routine) - Pending Review Specialty Diagnoses / Procedures Referred By Ronaldo merritt Referred To Contact Diagnoses Hx of breast cancer Hx of lumpectomy Procedures Diagnostic Mammogram 2D Right Diagnostic Mammogram Right W Malorie Patel, LIVESTOCK SLAUGHTERER [address] [facility] [address] [place] [address] Phone: tel: fax: [facility] [address] [place] [address] Referral ID Status Reason Start Date Expiration Date V isits Requested Visits Authorized [id number] Pending Review 08/08/2024 09/07/2025 1 1 Encounter Details Date Type Department Care Team (Latest Contact Info) Description 02/14/2025 2:44 PM MATERIAL STOCKKEEPER YARD - 02/14/2025 11:59 PM MATERIAL STOCKKEEPER YARD Hospital Encounter [facility] - Imaging [address] [facility] [address] [place] [address] Hx of breast cancer; Hx of lumpectomy Discharge Disposition: Discharge to home or self care Social History Tobacco Use Types Packs/Day Years [...] you are drinking? Patient does not drink 4 Q3: How often do you have si [...] on file Legal Sex Female 12:06 AM MATERIAL STOCKKEEPER YARD Gender Identity Not on file Sexual Orientation Not on file Occupation Industry Job Start Date Job End Date [employer] Not on file Not on file Not on file documented as of this encounter Medications at Time of Discharge ALPRAZolam (XANAX) 0.25 mg tabletIndications: anxiety Take 1 tablet (0.25 mg total) by mouth as needed for anxiety 0 bempedoic acid (Nexletol) 180 mg tablet Take 180 mg by mouth daily cetirizine (ZyrTEC) 10 mg tablet daily EpiPen 2-Laurent 0.3 mg/0.3 mL auto-injection syringe as directed intramuscularly once for 30 days levothyroxine (SYNTHROID) 75 mcg tablet TAKE 1 TABLET BY MOUTH EVERY MORNING BEFORE BREAKFAST 90 tablet 1 5 Linzess 72 mcg capsule Take 1 capsule (72 mcg total) by mouth daily montelukast (SINGULAIR) 10 mg tablet Take 1 tablet (10 mg total) by mouth daily 4 norethindrone (MICRONOR) 0.35 mg tabletIndications: Contraception Take 1 tablet (0.35 mg total) by mouth daily Take one pill daily. Use backup as directed. 84 tablet 3 5 omeprazole (PriLOSEC) 40 mg capsule Take 1 capsule (40 mg total) by mouth daily 5 documented as of this encounter Discharge Disposition Disposition Code Departure Means Destination Discharge to home or self care documented in this encounter Plan of Treatment Not on file documented as of this encounter Procedures Procedure Name Priority Date/Time Associated Diagnosis Comments DIAGNOSTIC MAMMOGRAM 2D RIGHT Schedule Routine, Read Routine (OP Routine) 02/14/2025 3:03 PM MATERIAL STOCKKEEPER YARD Hx of breast cancer Hx of lumpectomy documented in this encounter Results * Diagnostic Mammogram 2D Right (02/14/2025 3:03 PM MATERIAL STOCKKEEPER YARD) Anatomical Region Laterality Modality Breast Right Mammography 02/14/2025 3:15 PM MATERIAL STOCKKEEPER YARD Impressions 02/14/2025 3:15 PM MATERIAL STOCKKEEPER YARD 1. Calcifications at the right lumpectomy site are probably benign. Recommend follow-up with a diagnostic right mammogram in 6 months. The patient will be due for her annual exam at that time. Management of any palpable abnormality should be based on clinical grounds. OVERALL FINAL ASSESSMENT: BI-RADS Category 3: Probably Benign. RECOMMENDATION: Recommend follow-up diagnostic breast imaging in 6 months with a diagnostic bilateral mammogram. Electronically signed by: Miriam Aguirre M.D. Narrative 02/14/2025 3:15 PM MATERIAL STOCKKEEPER YARD EXAMINATION: RIGHT UNILATERAL DIGITAL DIAGNOSTIC MAMMOGRAM AND DIGITAL BREAST TOMOSYNTHESIS HISTORY: Six-month follow-up for calcifications at the lumpectomy site in the right breast COMPARISON: Priors dating back to 01/28/2022 TECHNIQUE: Full field digital mammographic views of the RIGHT breast were performed, including computer aided detection (CAD) and digital breast tomosynthesis (DBT). BREAST PARENCHYMAL COMPOSITION: There are scattered areas of fibroglandular density. MAMMOGRAM FINDINGS: There are lumpectomy changes in the right breast. There are calcifications at the lumpectomy site that have increased in size and number. These appear more dystrophic. These are probably benign. Recommend follow-up in 6 months with a diagnostic mammogram. Procedure Note Miriam Aguirre MD - 02/14/2025 EXAMINATION: RIGHT UNILATERAL DIGITAL DIAGNOSTIC MAMMOGRAM AND DIGITAL BREAST TOMOSYNTHESIS HISTORY: Six-month follow-up for calcifications at the lumpectomy site in the right breast COMPARISON: Priors dating back to 01/28/2022 TECHNIQUE: Full field digital mammographic views of the RIGHT breast were performed, including computer aided detection (CAD) and digital breast tomosynthesis (DBT). BREAST PARENCHYMAL COMPOSITION: There are scattered areas of fibroglandular density. MAMMOGRAM FINDINGS: There are lumpectomy changes in the right breast. There are calcifications at the lumpectomy site that have increased in size and number. These appear more dystrophic. These are probably benign. Recommend follow-up in 6 months with a diagnostic mammogram. IMPRESSION: 1. Calcifications at the right lumpectomy site are probably benign. Recommend follow-up with a diagnostic right mammogram in 6 months. The patient will be due for her annual exam at that time. Management of any palpable abnormality should be based on clinical grounds. OVERALL FINAL ASSESSMENT: BI-RADS Category 3: Probably Benign. RECOMMENDATION: Recommend follow-up diagnostic breast imaging in 6 months with a diagnostic bilateral mammogram. Electronically signed by: Miriam Aguirre M.D. Malorie Malcolm LIVESTOCK SLAUGHTERER IMG MAMMO PROCEDURES Final Result documented in this encounter Visit Diagnoses Diagnosis Hx of breast cancer Personal history of malignant neoplasm of breast Hx of lumpectomy documented in this encounter Care Teams Pet Walker Relationship Specialty Start Date End Date Bhavna Ventura PA [address] [place] [address] PCP - General Family Practice 09/25/24 Teofilo Triplett MD [address] [place] [address] Medical Oncologist/Bladder Cleaner Hematology and Oncology 07/22/21 Arian Eaton MD [address] [place] [address] Consulting Physician Radiation Oncology 07/22/21 Nathan Fish MD [address] [place] [address] Consulting Physician Surgical Oncology 07/28/21 Shara Monreal MD [address] [place] [address] Consulting Physician Obstetrics and Gynecology 07/28/21 Malorie Malcolm NP [address] [place] [address] Nurse Practitioner Surgery 12/22/21 documented as of this encounter
--- OUTSIDE RECORDS SUMMARY | 2025-02-16 12:31 | XMS_ITS | Encounter Summary ---
Author Organization [facility] Address [address] [place] [address] Care Team Providers Care Assistant Quality Manager Name Role Phone Catalino Koch MD Unavailable Bhavna Ventura PA-C Primary Care Provider [phone] Encounter Details Date Type Department Care Team (Latest Contact Info) Description 01/09/2025 Results Follow-Up [facility] [address] [place] [address] Cyndy Arguello NP [address] [place] [address] CBC W/DIFF AUTOMATED, COMPREHENSIVE METABOLIC PANEL Social History Tobacco Use Types Packs/Day Years [...] on file documented as of this encounter Progress Notes * Cyndy Arguello NP - 01/09/2025 4:14 PM CDT Results reviewed. Lab results are overall within normal limits documented in this encounter Plan of Treatment Not on file documented as of this encounter Visit Diagnoses Not on filedocumented in this encounter Care Teams Assistant Quality Manager Relationship Specialty Start Date End Date Bhavna Ventura PA-C [address] [place] [address] PCP - General PHYSICIAN JOURNAL BOX INSPECTOR 05/27/24 Catalino Koch MD [address] [facility] [address] [place] [address] GENERAL SURGERY 05/27/24 documented as of this encounter
--- OUTSIDE RECORDS SUMMARY | 2025-02-16 12:31 | XMS_ITS | Patient Health Record ---
Author Organization [facility] [place] ([address]) Address [address] [place] [address] Care Team Providers Care Termite Treater Name Role Phone Chela PRAJAPATI, Dr Angelo Primary Care Provider Nita Naqvi Unavailable [phone] Allergies Allergen (clinical drug ingredient) Drug/Non Drug Allergy documented on EMR Reaction Allergy Type Onset Date Status sulfamethoxazole / trimethoprim Bactrim rash Drug Allergy Active carboplatin CARBOplatin unknown reaction Drug Allergy Active acetaminophen / oxycodone Percocet Vomiting Drug Allergy Active Reason For Referral No Information Medications Medication SIG (Take, Route, Frequency, Duration) Notes Start Date End Date Status Linzess 72 MCG Oral; Duration: 30 Days Active Omeprazole 40 MG Oral; Duration: 30 Days Active Montelukast Sodium 10 MG 1 tab(s) orally once a day Active Vyfemla 35 MCG-0.4 MG 1 TAB(S) ORALLY ONCE A DAY *Please review and pick correct strength-formula tion from [employer] options. If intended option is not shown, discontinue and re-order from Quick Search* Not-Taking EpiPen 2-Laurent 0.3 mg as directed intramuscularly once; Duration: 30 days Active Medrol 4 MG as directed Orally daily; Duration: 6 days 04/01/2024 Not-Taking Famotidine 20 MG 1 tablet Orally Twice a day; Duration: 30 days 04/01/2024 Active Cetirizine HCl 10 MG 1 tablet Orally Twice a day; Duration: 30 days 04/01/2024 Active Levothyroxine Sodium 75 MCG 1 tab(s) orally once a day Active Fluticasone Propionate 50 MCG/ACT 2 spray(s) in each nostril once a day; Duration: 30 days Active Cetirizine HCl 10 MG 1 tab(s) orally once a day; Duration: 30 days Active CETIRIZINE 10 mg 1 tab(s) orally once a day; Duration: 30 days Active EPIPEN 2-LAURENT 0.3 mg as directed intramuscularly once; Duration: 30 days Active Social History Tobacco Use: Social History Observation Description Date Details (start date - stop date) Never Smoker NA - NA Sex Assigned At : Social History Observation Description Sex Assigned At Female Tobacco Control (Standard) Question Answer Notes Tobacco use: Nonsmoker Problems Problem Type SNOMED Code ICD Code Onset Dates Problem Status W/U Status Risk Notes Problem Chronic allergic conjunctivitis (74177605) Other chronic allergic conjunctivitis (H10.45) Active confirmed Problem Allergic rhinitis caused by pollen (disorder) (98609876) Allergic rhinitis due to pollen (J30.1) Active confirmed Problem Allergic rhinitis (18940864) Other allergic rhinitis (J30.89) Active confirmed Problem Allergic rhinitis caused by animal hair and dander (455342447369608) Allergic rhinitis due to animal (cat) (dog) hair and dander (J30.81) Active confirmed Vital Signs Blood pressure diastolic 74 mm Hg 04/29/2024 Oximetry 99 % 04/29/2024 Height 64 in 04/29/2024 Blood pressure systolic 108 mm Hg 04/29/2024 Weight 212.4 lbs 04/29/2024 BMI 36.45 kg/m2 04/29/2024 Encounters Encounter Location Date Provider Diagnosis [address] [address] 01/14/2025 Nita Conrad Allergic rhinitis du e to pollen J30.1 ; Other allergic rhinitis J30.89 ; Allergic rhinitis due to animal (cat) (dog) hair and dander J30.81 and Other chronic allergic conjunctivitis H10.[address] [address] 02/12/2025 Nita Conrad Allergic rhinitis du e to pollen J30.1 ; Other allergic rhinitis J30.89 ; Allergic rhinitis due to animal (cat) (dog) hair and dander J30.81 and Other chronic allergic conjunctivitis H10.45 [facility] [address] [place] [address] 02/05/2025 Nita Houston Allergic rhinitis du e to pollen J30.1 ; Other allergic rhinitis J30.89 ; Allergic rhinitis due to animal (cat) (dog) hair and dander J30.81 and Other chronic allergic conjunctivitis H10.45 [facility] [address] [place] [address] 12/10/2024 Nita Houston Allergic rhinitis du e to pollen J30.1 ; Other allergic rhinitis J30.89 ; Allergic rhinitis due to animal (cat) (dog) hair and dander J30.81 and Other chronic allergic conjunctivitis H10.45 [facility] [address] [place] [address] 11/13/2024 Nita Houston Allergic rhinitis du e to pollen J30.1 ; Other allergic rhinitis J30.89 ; Allergic rhinitis due to animal (cat) (dog) hair and dander J30.81 and Other chronic allergic conjunctivitis H10.45 [facility] [address] [place] [address] 10/08/2024 Nita Houston Allergic rhinitis du e to pollen J30.1 ; Other allergic rhinitis J30.89 ; Allergic rhinitis due to animal (cat) (dog) hair and dander J30.81 and Other chronic allergic conjunctivitis H10.45 [facility] [address] [place] [address] 09/10/2024 Nita Houston Allergic rhinitis du e to pollen J30.1 ; Other allergic rhinitis J30.89 ; Allergic rhinitis due to animal (cat) (dog) hair and dander J30.81 and Other chronic allergic conjunctivitis H10.45 [facility] [address] [place] [address] 08/27/2024 Nita Houston Allergic rhinitis du e to pollen J30.1 ; Other allergic rhinitis J30.89 ; Allergic rhinitis due to animal (cat) (dog) hair and dander J30.81 and Other chronic allergic conjunctivitis H10.45 [facility] [address] [place] [address] 08/08/2024 Nita Houston Allergic rhinitis du e to pollen J30.1 ; Other allergic rhinitis J30.89 ; Allergic rhinitis due to animal (cat) (dog) hair and dander J30.81 and Other chronic allergic conjunctivitis H10.45 [facility] [address] [place] [address] 07/16/2024 Nita Houston Allergic rhinitis du e to pollen J30.1 ; Other allergic rhinitis J30.89 ; Allergic rhinitis due to animal (cat) (dog) hair and dander J30.81 and Other chronic allergic conjunctivitis H10.45 [facility] [address] [place] [address] 07/09/2024 Nita Houston Allergic rhinitis du e to pollen J30.1 ; Other allergic rhinitis J30.89 ; Allergic rhinitis due to animal (cat) (dog) hair and dander J30.81 and Other chronic allergic conjunctivitis H10.45 [facility] [address] [place] [address] 07/04/2024 Nita Houston Allergic rhinitis du e to pollen J30.1 ; Other allergic rhinitis J30.89 ; Allergic rhinitis due to animal (cat) (dog) hair and dander J30.81 and Other chronic allergic conjunctivitis H10.45 [facility] [address] [place] [address] 06/13/2024 Nita Houston Allergic rhinitis du e to pollen J30.1 ; Other allergic rhinitis J30.89 ; Allergic rhinitis due to animal (cat) (dog) hair and dander J30.81 and Other chronic allergic conjunctivitis H10.45 [facility] [address] [place] [address] 05/15/2024 Nita Houston Allergic rhinitis du e to pollen J30.1 ; Other allergic rhinitis J30.89 ; Allergic rhinitis due to animal (cat) (dog) hair and dander J30.81 and Other chronic allergic conjunctivitis H10.45 [facility] [address] [place] [address] 04/22/2024 Nita Houston Allergic rhinitis du e to pollen J30.1 ; Other allergic rhinitis J30.89 ; Allergic rhinitis due to animal (cat) (dog) hair and dander J30.81 and Other chronic allergic conjunctivitis H10.45 [facility] [address] [place] [address] 04/15/2024 Nita Houston Allergic rhinitis du e to pollen J30.1 ; Other allergic rhinitis J30.89 ; Allergic rhinitis due to animal (cat) (dog) hair and dander J30.81 and Other chronic allergic conjunctivitis H10.45 [facility] [address] [place] [address] 04/10/2024 Nita Houston Allergic rhinitis du e to pollen J30.1 ; Other allergic rhinitis J30.89 ; Allergic rhinitis due to animal (cat) (dog) hair and dander J30.81 and Other chronic allergic conjunctivitis H10.45 [facility] [address] [place] [address] 03/27/2024 Nita Houston Allergic rhinitis du e to pollen J30.1 ; Other allergic rhinitis J30.89 ; Allergic rhinitis due to animal (cat) (dog) hair and dander J30.81 and Other chronic allergic conjunctivitis H10.45 [facility] [address] [place] [address] 03/11/2024 Nita Houston Allergic rhinitis du e to pollen J30.1 ; Other allergic rhinitis J30.89 ; Allergic rhinitis due to animal (cat) (dog) hair and dander J30.81 and Other chronic allergic conjunctivitis H10.45 [facility] [address] [place] [address] 02/27/2024 Nita Houston Allergic rhinitis du e to pollen J30.1 ; Other allergic rhinitis J30.89 ; Allergic rhinitis due to animal (cat) (dog) hair and dander J30.81 and Other chronic allergic conjunctivitis H10.[address] [place] [address] 02/20/2024 Nita Conrad Allergic rhinitis du e to pollen J30.1 ; Other allergic rhinitis J30.89 ; Allergic rhinitis due to animal (cat) (dog) hair and dander J30.81 and Other chronic allergic conjunctivitis H10.[address] [place] [address] 04/29/2024 Nita Conrad Allergic rhinitis du e to pollen J30.1 ; Dermatitis, unspecified L30.9 ; Shortness of breath R06.02 ; Allergic rhinitis due to animal (cat) (dog) hair and dander J30.81 ; Other allergic rhinitis J30.89 and Other chronic allergic conjunctivitis H10.[address] [place] [address] 04/01/2024 Nita Conrad Allergic rhinitis du e to pollen J30.1 ; Dermatitis, unspecified L30.9 ; Shortness of breath R06.02 ; Allergic rhinitis due to animal (cat) (dog) hair and dander J30.81 ; Other allergic rhinitis J30.89 and Other chronic allergic conjunctivitis H10.[address] [place] [address] 04/01/2024 Nita Conrad [address] [address] 01/20/2025 Nita Conard [address] [place] [address] 06/19/2024 Nita Conrad Assessments Encounter Date Diagnosis (ICD Code) Assessment Notes Treatment Notes Treatment Clinical Notes Section Notes 02/20/2024 Allergic rhinitis due to pollen (ICD-10 [...] 07/16/2024 Other allergic rhinitis (ICD-10 - J30.89) 08/08/2024 Allergic rhinitis due to pollen (ICD-10 - J30.1) 08/08/2024 Other allergic rhinitis (ICD-10 - J30.89) 08/27/2024 Allergic rhinitis due to pollen (ICD-10 - J30.1) 08/27/2024 Other allergic rhinitis (ICD-10 - J30.89) 09/10/2024 Allergic rhinitis due to pollen (ICD-10 - J30.1) 09/10/2024 Other allergic rhinitis (ICD-10 - J30.89) 10/08/2024 Allergic rhinitis due to pollen (ICD-10 - J30.1) 10/08/2024 Other allergic rhinitis (ICD-10 - J30.89) 11/13/2024 Allergic rhinitis due to pollen (ICD-10 - J30.1) 11/13/2024 Other allergic rhinitis (ICD-10 - J30.89) 12/10/2024 Allergic rhinitis due to pollen (ICD-10 - J30.1) 12/10/2024 Other allergic rhinitis (ICD-10 - J30.89) 01/14/2025 Allergic rhinitis due to pollen (ICD-10 - J30.1) 01/14/2025 Other allergic rhinitis (ICD-10 - J30.89) 02/05/2025 Allergic rhinitis due to pollen (ICD-10 - J30.1) 02/05/2025 Other allergic rhinitis (ICD-10 - J30.89) 02/12/2025 Allergic rhinitis due to pollen (ICD-10 - J30.1) 02/12/2025 Other allergic rhinitis (ICD-10 - J30.89) 02/12/2025 Allergic rhinitis due to animal (cat) (dog) hair and dander (ICD-10 - J30.81) 02/05/2025 Allergic rhinitis due to animal (cat) (dog) hair and dander (ICD-10 - J30.81) 01/14/2025 Allergic rhinitis due to animal (cat) (dog) hair and dander (ICD-10 - J30.81) 12/10/2024 Allergic rhinitis due to animal (cat) (dog) hair and dander (ICD-10 - J30.81) 11/13/2024 Allergic rhinitis due to animal (cat) (dog) hair and dander (ICD-10 - J30.81) 10/08/2024 Allergic rhinitis due to animal (cat) (dog) hair and dander (ICD-10 - J30.81) 09/10/2024 Allergic rhinitis due to animal (cat) (dog) hair and dander (ICD-10 - J30.81) 08/27/2024 Allergic rhinitis due to animal (cat) (dog) hair and dander (ICD-10 - J30.81) 08/08/2024 Allergic rhinitis due to animal (cat) (dog) [...] hair and dander (ICD-10 - J30.81) 02/20/2024 Other chronic allergic conjunctivitis (ICD-10 - [...] Other chronic allergic conjunctivitis (ICD-10 - H10.45) 08/08/2024 Other chronic allergic conjunctivitis (ICD-10 - H10.45) 08/27/2024 Other chronic allergic conjunctivitis (ICD-10 - H10.45) 09/10/2024 Other chronic allergic conjunctivitis (ICD-10 - H10.45) 10/08/2024 Other chronic allergic conjunctivitis (ICD-10 - H10.45) 11/13/2024 Other chronic allergic conjunctivitis (ICD-10 - H10.45) 12/10/2024 Other chronic allergic conjunctivitis (ICD-10 - H10.45) 01/14/2025 Other chronic allergic conjunctivitis (ICD-10 - H10.45) 02/05/2025 Other chronic allergic conjunctivitis (ICD-10 - H10.45) 02/12/2025 Other chronic allergic conjunctivitis (ICD-10 - H10.45) [...] Treatment Next Appt Details Provider Name:Nita felton, 02/17/2025 05:00:00 PM, [address] [place], [address], Provider Name:Nita felton, 03/17/2025 05:00:00 PM, [facility] [place], [address], Insurance Providers Payer Name Payer Address Payer Phone Subscriber Number Group Number Insured Name Patient Relationship to Insured Coverage Start Date Coverage End Date [employer] [address] [address] [place] [address] [id number] Latrice Tate Self - patient is the insured Medical (General) History Medical History History ICD Code Hypothyroidism Cancer Surgical History Surgery Date(Month/Year) Lumpectomy 02/10/2022 port removal 07/14/2023
--- OUTSIDE RECORDS SUMMARY | 2025-02-16 12:31 | XMS_ITS | Encounter Summary ---
Author Organization [facility] Address [address] [place] [address] Care Team Providers Care Technology Risk Intern Name Role Phone Petey York MD Primary Care Provider [phone] Catalino Koch MD Unavailable Bhavna VenturaC Primary Care Provider [phone] Encounter Details Date Type Department Care Team (Late st Contact Info) Description 10/13/2023 M-Audio Message Enc [facility] Family & Internal Medicine [facility] [id number] [place] [address] [place] [address] [place] [address] Antibiotics/yeast Social History Tobacco Use Types [...] on filedocumented in this encounter Care Teams Technology Risk Intern Relationship Specialty Start Date End Date Petey York MD [facility] [place] [address] PCP - General FAMILY PRACTICE 01/17/23 05/26/24 Bhavna Ventura PA-C [address] [place], [place] [address] [place] [address] PCP - General PHYSICIAN ENVELOPE FOLDING MACHINE OPERATOR 05/27/24 Catalino Koch MD [address] [facility] [address] [place] [address] GENERAL SURGERY 05/27/24 documented as of this encounter
--- OUTSIDE RECORDS SUMMARY | 2025-02-16 12:32 | XMS_ITS | Encounter Summary ---
Author Organization [facility] Address [address] [place] [address] Care Team Providers Care Hostel Manager Name Role Phone Ryan Metz MD Primary Care Provider [phone] Bhavna Ventura PA-C Primary Care Provider [phone] Petey York MD Primary Care Provider [phone] Catalino Koch MD Unavailable Bhavna Ventura PA-C Primary Care Provider [phone] Encounter Details Date Type Department Care Team (Latest Contact Info) Description 01/16/2018 Abstract [facility] Medical [facility] Franco Roland MD [...] documented as of this encounter Care Teams Hostel Manager Relationship Specialty Start Date End Date Ryan Metz MD [address] [place] [address] PCP - General INTERNAL MEDICINE 8/17/19 10/13/22 Bhavna Ventura PA-C [address] [place] [address] [address] [place] [address] PCP - General PHYSICIAN COOPERATIVE EXTENSION AGENT 12/24/21 01/16/23 Petey York MD [address] [place] [address] PCP - General FAMILY PRACTICE 01/17/23 05/26/24 Bhavna Ventura PA-C [address] [place] [address] [address] [place] [address] PCP - General PHYSICIAN COOPERATIVE EXTENSION AGENT 05/27/24 Catalino Koch MD [address] [facility] [address] [address] GENERAL SURGERY 05/27/24 documented as of this encounter
--- OUTSIDE RECORDS SUMMARY | 2025-02-16 12:32 | XMS_ITS | Encounter Summary ---
Author Organization [facility] Address [address] [place] [address] Care Team Providers Care Pest Locator Name Role Phone Ryan Metz MD Primary Care Provider [phone] Encounter Details Date Type Department Care Team (Late st Contact Info) Description 12/14/2023 Lab Requisition [facility] - DermPath Lab [address] [facility], [place] [id number] Fina Cueto MD [address] [facility] [address], [place] [address] Social History Tobacco Use Types Packs/Day Years Used Date Smoking Tobacco: Never Smokeless Tobacco: Never Alcohol Use Standard Drinks/Week Comments Yes 0 (1 standard drink = 0.6 oz pur e alcohol) 2-3 drinks per month Comments No Sex and Gender Information Value Date Recorded Sex Assigned at Not on file Legal Sex Female 6:30 PM EMR TRAINER Gender Identity Not on file Sexual Orientation [...] AM CDT) Case Report Dermatopathology Report Case: [id number] Authorizing Provider: Fina Cueto MD Collected: 12/14/2023 12:00 AM Ordering Location: [facility] - Received: 12/18/2023 08:49 [...] The specimen is serially sectioned and a promotional representative section is submitted in cassette 1. [...] characteristic determined by the Dermatopathology Laboratory at [facility], directed by Dr. Tigre Fenton. These tests need not be, and therefore are not, approved by the [place] Food and Drug Administration. The tests are used for clinical purposes. Billing Codes Specimen Charges Stain Charges 18139 1 [id number] [id number] [id number] 40845 33308 1 1 1 1 1 1 4 3:57 PM CDT DERMATOPATHOLOGY LABORATORY Embedded Images 4 3:57 PM CDT DERMATOPATHOLOGY LABORATORY Pathology/Cytolog y TISSUE SPECIMEN FROM SKIN / Unknown 12/14/2023 12/18/2023 8:49 AM CDT Fina Cueto MD LAB - PATHOLOGY/CYTOLOGY AZALEA GUPTA Final Result DERMATOPATHOLOGY LABORATORY [facility] - Department of Dermatology [address] [phone] documented in this encounter Visit Diagnoses Not on filedocumented in this encounter Care Teams Pest Locator Relationship Specialty Start Date End Date Ryan Metz MD [address] [place] [address] PCP - General 05/15/17 documented as of this encounter
--- OUTSIDE RECORDS SUMMARY | 2025-02-16 12:32 | XMS_ITS | Clinical Summary ---
Author Organization [facility] Address [address] [place] [address] Care Team Providers Care Shade Hanger Name Role Phone Uziel Teofilo Jones MD Unavailable [phone] Arian Eaton MD Unavailable [phone] Nathan Fish MD Unavailable [phone] Shara Monreal MD Unavailable [phone] Malorie Malcolm NP Unavailable [phone] Bhavna Ventura Primary Care Provider [phone] Allergies Active Allergy Reactions Criticality Noted Date Comments Sulfamethoxazole-Trimetho prim Unknown 08/16/2023 Carboplatin Hives,Itching,Swell ing,Rash,Flushing (skin) High 09/24/2021 Swelling in hands, acid reflux Doxycycline Nausea & Vomiting Low 12/13/2017 Nitrofurantoin Anxiety,Itching,Julius h High 10/27/2018 Oxycodone Vomiting Low 10/20/2021 Oxycodone-Acetaminophen Nausea & Vomiting Low 12/31 Rosuvastatin Rash Medium 07/14/2023 Medications ALPRAZolam (XANAX) 0.25 mg tabletIndications :anxiety Take 1 tablet (0.25 mg total) by [...] BREAKFAST 90 tablet 1 07/03/19 25 Active norethindrone (MICRONOR) 0.35 mg tabletIndications : Contraception Take 1 tablet (0.35 mg total) by mouth daily Take one pill daily. Use backup as directed. 84 tablet 3 08/07/19 25 Active Additional Information Patient not taking.Reported on 09/25/2024 Active Problems Problem Noted Date Diagnosed Date Breast pain, right 06/27/2022 Invasive ductal carcinoma of breast, female, rig ht 07/30/2021 Encounter for fitting and adjustment of vascular catheter 07/30/2021 Overview (07/30/2021): Added automatically from request for surgery [id number] Malignant neoplasm of upper- inner quadrant of [...] (10/22/2019): Added automatically from request for surgery [id number] Pelvic and perineal pain 10/22/2019 Overview (10/22/2019): Added automatically from request for surgery [id number] Persistent proteinuria 10/25/2018 Recurrent UTI 10/25/2018 Asymptomatic microscopic hematuria 10/25/2018 Acute kidney injury 12/13/2017 Resolved Problems Problem Noted Date Diagnosed Date Resolved Date Post-operative state 02/22/2022 024 Encounters Date Type Department Care Team Description 02/14/2025 2:44 PM CASINO WORKER - 02/14/2025 11:59 PM CASINO WORKER Hospital Encounter [facility] - Imaging [address] [facility] [address] [place] [address] Hx of breast cancer; Hx of lumpectomy Discharge Disposition: Discharge to home or self care 02/14/2025 Results [facility] [address] [facility] [address] [place] [address] Malorie Malcolm NP Diagnostic Mammogram 2D Right 02/07/2025 2:39 PM CASINO WORKER - 02/07/2025 11:59 PM CASINO WORKER Hospital Encounter [facility] [address] [place] [address] Invasive ductal carcinoma of breast, female, right (HCC) Discharge Disposition: Discharge to home or self [...] on file Legal Sex Female 12:06 AM CASINO WORKER Gender Identity Not on file Sexual Orientation Not on file Occupation Industry Job Start Date Job End Date [employer] Not on file Not on file Not on file Obstetrics History Para Term AB IAB SAB Ectopic Multiple Livin g Live Births 0 0 0 0 0 0 0 0 0 0 0 Last Filed Vital Signs Vital Sign Reading Time Taken Comments Blood Pressure 113/66 09/25/2024 2:17 PM CDT Pulse 70 09/25/2024 2:17 PM CDT Temperature 36.9 C (98.5 F) 09/25/2024 2:17 PM CDT Respiratory Rate 18 09/25/2024 2:17 PM CDT Oxygen Saturation 100% 05/06/2024 1:56 PM CASINO WORKER Inhaled Oxygen Concentration - - Weight 89.8 kg (198 lb) 02/07/2025 2:59 PM CASINO WORKER Height 162.6 cm (5' 4) 02/07/2025 2:59 PM CASINO WORKER Body Mass Index 33.99 02/07/2025 2:59 PM CASINO WORKER Plan of Treatment Health Maintenance Due Date Last Done Comments Depression Screening 1992 Varicella Vaccines (1 of 2 - 13+ 2-dose series) 01/06/2005 DTaP/Tdap/Td Vaccine (7 - Td or Tdap) 10/16/2016 10/16/2006, 06/10/1997, 07/05/1993, Additional history exists HPV Vaccines (1 - 3-dose SCDM series) 01/06/2019 Cervical Cancer Screening 09/17/2024 09/18/2023 Regular Well Visit/Exam 18-64 09/17/2024 09/18/2023 Influenza Vaccine (#1) 2024 2, 01/22/2004, 01/06/2003 Breast Cancer Screening-Mammogram 08/06/2025 08/06/2024, 07/21/2023, 01/14/2022 Hepatitis B Screening Completed 07/11/2022 , 1992, 1992, Additional history exists Hepatitis C Screening Completed 07/11/2022, 019 Pneumococcal vaccine <65 Aged Out No longer eligible based on patient's age to complete this topic Medical Devices Implanted Type Area Security Operations Manager Device Identifier Shelf Expiration Date Model / Serial / Lot [employer] Magseed 18ga 7cm Marker Breast Biopsy [id number] Right: Breast [employer] [id number] 12/10/2025 [id number] / / [id number] [employer] [facility] Trimark Second Marker Breast Biopsy Disposable Trimark Td 2s 13-Mr - [id number] Implanted:Qty: 1 on 02/28/2024 by Consuelo Altman MD at [facility] Right: Breast [employer] [id number] 06/13/2025 TRIMARK TD 2S 13-MR / / [id number] Explanted Type Area Security Operations Manager Device Identifier Shelf Expiration Date Model / Serial / Lot Blink[employer] Powerport Isp Mri Airguard 8fr 1 Lumen Attachable Catheter Open Latex Free [id number] - [id number] Implanted:Qty: 1 on 08/06/2021 by Koffi Brandon MD at [facility] Explanted:Qty: 1 Right: Chest [employer] Access Systems 09/09/2022 [id number] / / [id number] Procedures Procedure Name Priority Date/Time Associated Diagnosis Comments DIAGNOSTIC MAMMOGRAM 2D RIGHT Schedule Routine, Read Routine (OP Routine) 02/14/2025 3:03 PM CASINO WORKER Hx of breast cancer Hx of lumpectomy DIAGNOSTIC MAMMOGRAM BILATERAL W KVNG Schedule Routine, Read Routine (OP Routine) 08/06/2024 3:18 PM CDT Invasive ductal carcinoma of breast, female, right (HCC) PAP AND HPV, REFLEX TO HPV GENOTYPES Routine 09/18/2023 4:32 AM CDT Screening for cervical cancer Screening for human papillomavirus (HPV) HEPATITIS C ANTIBODY Routine 07/11/2022 1:00 PM CDT from Last 3 Months or Most Recently Relevant to Health Maintenance Results * Diagnostic Mammogram 2D Right (02/14/2025 3:03 PM CASINO WORKER) Anatomical Region Laterality Modality Breast Right Mammography 02/14/2025 3:15 PM CASINO WORKER Impressions 02/14/2025 3:15 PM CASINO WORKER 1. Calcifications at the right lumpectomy site [...] Miriam Aguirre M.D. Narrative 02/14/2025 3:15 PM CASINO WORKER EXAMINATION: RIGHT UNILATERAL DIGITAL DIAGNOSTIC MAMMOGRAM AND [...] signed by: Miriam Aguirre M.D. Malorie Malcolm CABLE MECHANIC IMG MAMMO PROCEDURES Final Result * Diagnostic Mammogram Bilateral W Kvng (08/06/2024 3:18 PM CDT) Anatomical Region Laterality Modality Breast Bilateral Mammography 08/06/2024 5:51 PM CDT Addenda Addendum by Vonnie Batista MD on 08/08/2024 11:03 AM CDT This is a correction addendum regarding the BI-RADS category. Overall final assessment BI-RADS 3: Probably benign Recommendation: Right diagnostic mammography in 6 months is recommended. Electronically signed by: VONNIE BATISTA M.D. Impressions 08/06/2024 5:51 PM CDT 1. No mammographic finding of malignancy in the left breast. 2. Probably benign calcifications at the lumpectomy site in the upper central right breast. Short interval follow-up is recommended in 6 months to ensure stability. Overall final assessment: BI-RADS: Suspicious RECOMMENDATION: Right diagnostic mammography in 6 months. Findings and recommendations were communicated to the patient. *The patient's information was entered into a reminder system with a target due date for the next mammogram. Electronically signed by: VONNIE BATISTA M.D. Narrative 08/06/2024 5:51 PM CDT EXAM: DIAGNOSTIC MAMMOGRAM BILATERAL W KVNG CLINICAL INDICATION: The patient underwent right lumpectomy for breast cancer in 2021. TECHNIQUE: Bilateral full-field digital diagnostic mammography with computer aided detection. 3D tomosynthesis images were performed. COMPARISON: Comparison is made to prior available relevant studies at the time of interpretation. FINDINGS: There are scattered areas of fibroglandular density. Postoperative changes of right lumpectomy noted. Magnification images demonstrate a few punctate benign-appearing calcifications seen in the upper central right breast at the lumpectomy site. Nathan Fish MD IMG MAMMO PROCEDURES Edite d Result - Final * (ABNORMAL) Pap and HPV, reflex to [...] by Comment [facility] - 01 Comment:Regis Oconnell Cytotemine hnologist (ASCP) Electronically signed by Comment [facility] [...] - 09/20/2023 2:11 PM CDT Performed at: [address] [id number] Business Banking Manager: Yumiko Hubbard MD, Phone: [phone] Performed at: 02 - [address] [id number] Business Banking Manager: Yumiko Hubbard MD, Phone: [phone] Specimen Comment: Source.............Cervix;Endocervix Specimen Comment: No. of containers..01 ThinPrep Vial Shara Monreal MD LAB CYTOLOGY ORDERABLES F inal Result [facility] - 01 LAB PEÑA 02 * Hepatitis C antibody (07/11/2022 1:00 PM CDT) Hep C Ab Nonreactive Nonreactive [facility] Comment: Interpretive Data Nonreactive: Antibodies [...] L ORDERABLES Edited Result - Final [facility] [address] [place] [address] from Last 3 Months or Most Recently Relevant to Health Maintenance Insurance [facility] [employer] [facility] H[facility] Care Teams Shade Hanger Relationship Specialty Start Date End Date Bhavna Ventura PA [address] [place] [address] PCP - General Family Practice 09/25/24 Teofilo Triplett MD [address] [place] [address] Medical Oncologist/Sales Engineer Hematology and Oncology 07/22/21 Arian Eaton MD [address] [place] [address] Consulting Physician Radiation Oncology 07/22/21 Nathan Fish MD [address] [place] [address] Consulting Physician Surgical Oncology 07/28/21 Shara Monreal MD [address] [place] [address] Consulting Physician Obstetrics and Gynecology 07/28/21 Malorie Malcolm NP [address] [facility] [address] [place] [address] Nurse Practitioner Surgery 12/22/21
--- OUTSIDE RECORDS SUMMARY | 2025-02-16 12:32 | XMS_ITS | Encounter Summary ---
Author Organization [facility] Address [address] [place] [address] Care Team Providers Care Termite Control Technician Name Role Phone Uziel Teofilo Jones MD Unavailable [phone] Arian Eaton MD Unavailable [phone] Nathan Fish MD Unavailable [phone] Shara Monreal MD Unavailable [phone] Malorie Malcolm NP Unavailable Bhavna Ventura Primary Care Provider [phone] Encounter Details Date Type Department Care Team (Late st Contact Info) Description 02/14/2025 Results [facility] [address] [facility] [address] [place] [address] Malorie Malcolm, DRY ICE MACHINE OPERATOR [address] [facility] [address] [place] [address] Diagnostic Mammogram 2D Right Social History Tobacco Use Types Packs/Day Years [...] on file Legal Sex Female 12:06 AM WEIGH BOSS Gender Identity Not on file Sexual Orientation Not on file Occupation Industry Job Start Date Job End Date [employer] Not on file Not on file Not on file documented as of this encounter Miscellaneous Notes * Result Encounter Note - Malorie Malcolm NP - 02/14/2025 4:03 PM WEIGH BOSS Patient aware of results. Please enter recall for Apr 2025 clinical breast exam. History of cancer and Cat 3. H BOSS documented in this encounter Plan of Treatment Not on file documented as of this encounter Visit Diagnoses Not on filedocumented in this encounter Care Teams Termite Control Technician Relationship Specialty Start Date End Date Bhavna Ventura PA [address] [place] [address] PCP - General Family Practice 09/25/24 Teofilo Triplett MD [address] [place] [address] Medical Oncologist/Marketing Executive Hematology and Oncology 07/22/21 Arian Eaton MD [address] DEPT RADIATION ONCOLOGY [place], [place] [id number] Consulting Physician Radiation Oncology 07/22/21 Nathan Fish MD [address] [facility] [address] [place] [address] Consulting Physician Surgical Oncology 07/28/21 Shara Monreal MD [address] [place] [address] Consulting Physician Obstetrics and Gynecology 07/28/21 Malorie Malcolm NP [address] [place] [address] Nurse Practitioner Surgery 12/22/21 documented as of this encounter
--- OUTSIDE RECORDS SUMMARY | 2025-02-16 12:32 | XMS_ITS | Clinical Summary ---
Author Organization [facility] Address [address] [place] [address] Care Team Providers Care Autopsy Assistant Name Role Phone Catalino Koch MD Unavailable Bhavna Salazar PA-C Primary Care Provider [phone] Allergies Active Allergy Reactions Criticality Noted Date Comments Carboplatin Unknown 08/12/2022 Patient unsure, states it started with her stomach Ciprofloxacin GI Upset Low 09/07/2023 Doxycycline Nausea Only 04/07/2019 Nitrofurantoin Rash,Itching,Anxiet y High 10/27/2018 Oxycodone Vomiting 10/20/2021 Oxycodone-Acetaminophen Vomiting 01/09/2025 Rosuvastatin Rash Medium 07/14/2023 Sulfamethoxazole Unknown 08/05/2024 Sulfamethoxazole-Trimethop rim Unknown 08/16/2023 Trimethoprim Unknown 08/05/2024 Medications ALPRAZolam (XANAX) 0.25 MG tablet Take 1 tablet (0.25 mg total) by mouth daily as needed. 3 Active VYFEMLA 0.4-35 MG-MCG tablet Take 1 tablet by mouth daily. 3 Active traMADol (ULTRAM) 50 MG tablet Take 1 tablet (50 mg total) by mouth every 6 (six) hours as needed. 3 Active levothyroxine (SYNTHROID) 75 MCG tablet TAKE 1 TABLET(75 MCG) BY MOUTH BRIDGE REPAIRER BEFORE BREAKFAST 3 Active montelukast (SINGULAIR) 10 [...] the muscle as needed for Anaphylaxis. Active linaCLOtide (LINZESS) 72 MCG capsule Take by mouth as needed. 5 Active Active Problems Problem Noted Date Diagnosed Date Fall 08/17/2022 BMI 34.0-34.9,adult 08/17/2022 Left ankle sprain 08/16/2022 Assessment & Plan (04/25/2023 10:27 AM COMMUNITY RELATIONS LIAISON): Recommendation at this time is to continue with her home exercise program for the ankle. Patient will be seen back as needed. Assessment & Plan (01/31/2023 6:49 PM COMMUNITY RELATIONS LIAISON): We got her set up to go [...] Encounters Date Type Department Care Team Description 02/15/2025 Travel 02/04/2025 4:19 PM COMMUNITY RELATIONS LIAISON - 02/04/2025 11:59 PM COMMUNITY RELATIONS LIAISON Hospital Encounter [facility] [address] [place] [address] Bhavna Salazar PA-C Discharge Disposition: Home or Self Care (Routine Discharge) 02/04/2025 Travel 01/17/2025 3:00 PM COMMUNITY RELATIONS LIAISON - 01/17/2025 11:59 PM COMMUNITY RELATIONS LIAISON Hospital Encounter [facility] [address] [place] [address] Bhavna Salazar PA-C Discharge Disposition: Home or Self Care (Routine Discharge) 01/17/2025 Travel 01/09/2025 3:00 PM CDT - 01/09/2025 11:59 PM CDT Hospital Encounter [facility] [address] [place] [address] Cyndy Arguello NP Discharge Disposition: Home or Self Care (Routine Discharge) 01/09/2025 2:20 PM CDT Office Visit [facility] [address] [place] [address] Cyndy Arguello NP Pain (In L armpit 9-10 days, hx breast cancer in right ) 01/09/2025 Results Follow-Up [address] [address] Cyndy Arguello NP CBC W/DIFF AUTOMATED, COMPREHENSIVE METABOLIC PANEL 01/09/2025 Travel from Last 3 Months Immunizations Immunization [...] Sign Reading Time Taken Comments Blood Pressure 102/69 01/09/2025 2:15 PM CDT Pulse 76 01/09/2025 2:15 PM CDT Temperature 36.6 C (97.8 F) 01/09/2025 2:15 PM CDT Respiratory Rate 18 01/09/2025 2:15 PM CDT Oxygen Saturation 97% 01/09/2025 2:15 PM CDT Inhaled Oxygen Concentration - - Weight 89.6 kg (197 lb 9.6 oz) 01/09/2025 2:15 P M CDT Height 162.6 cm (5' 4) 01/09/2025 2:15 PM CDT Body Mass Index 33.92 01/09/2025 2:15 PM CDT Plan of Treatment Health Maintenance Due Date Last Done Comments Annual Physical 01/06/1995 Hepatitis A Vaccines (2 of 2 - 2-dose series) 04/18/2007 10/16/2006 Hepatitis C 01/06/2010 DTaP, Tdap and Td Vaccines (7 - Td or Tdap) 10/16/2016 10/16/2006, 06/10/1997, 07/05/1993, Additional history exists HPV Vaccines (1 - 3-dose SCDM series) 01/06/2019 Cervical Cancer Screening Pap with HPV Testing (Age 30 to 64) Every 5 Years 01/06/2022 PHQ-2 (Physician [place]) 03/13/2024 10/11/2023 COVID-19 Vaccine ( season) 2024 Influenza Adult (#1) 2024 01/05/2012, 01/22/2004, 01/06/2003 Cervical Cancer Screening Pap Smear (Age 30 to 64) Every 3 Years 07/11/2025 07/11/2022, 07/11/2022, 07/05/2021 Cervical Cancer Screening with HPV 07/11/2025 Hepatitis B Vaccines Completed 1992, 1992, 1992 [...] Procedure Name Priority Date/Time Associated Diagnosis Comments US AXILLARY NON BREAST LT Routine 02/04/2025 4:44 PM COMMUNITY RELATIONS LIAISON Pain in left upper arm BONE DENSITY/DEXA Routine 01/17/2025 3:1 6 PM COMMUNITY RELATIONS LIAISON Other buttermilk drier operator (current) drug therapy COMPREHENSIVE METABOLIC PANEL Routine 01/09/2025 3:05 PM CDT Pain in left axilla CBC W/DIFF AUTOMATED Routine 01/09/2025 3:05 PM CDT Pain in left axilla from Last 3 Months Results * US AXILLARY NON BREAST LT (02/04/2025 4:44 PM COMMUNITY RELATIONS LIAISON) Anatomical Region Laterality Modality Extremity Ultrasound 02/12/2025 12:4 3 PM COMMUNITY RELATIONS LIAISON Impressions 02/12/2025 12:46 PM COMMUNITY RELATIONS LIAISON IMPRESSION: 2 morphologically normal lymph nodes within the left axilla without localizing sonographic abnormality. If there is clinical concern for a mass within the left axilla, then dedicated diagnostic left mammography is recommended. Ordered By: BHAVNA SALAZAR Interpreted By: Ja Vega, 02/12/2025 12:43 PM Narrative 02/12/2025 12:46 PM COMMUNITY RELATIONS LIAISON [address] [address] EXAMINATION: US AXILLARY NON BREAST LT INDICATIONS: Pain in left upper arm PROVIDED CLINICAL HISTORY: Pain in the left axilla/upper arm for the past couple of weeks. No reported palpable lump. Personal history of right breast cancer. COMPARISON: NONE TECHNIQUE Grayscale and color Doppler ultrasound imaging of the superficial soft tissues of left axilla/upper extremity FINDINGS: Focused sonographic evaluation of the superficial soft tissues within region of concern as indicated by the patient, lateral aspect of the left axilla demonstrates 2 reniform intramammary lymph nodes each of which demonstrates parallel orientation with preserved central hilar echogenicity, thin uniform peripheral hypoechogenicity without nodularity, and central pedicular vascular flow. The first measures 0.8 x 0.3 x 0.7 cm and the second measures 1.6 x 0.7 x 0.9 cm. No suspicious mass, fluid collection, or dermal thickening within the region of concern. Procedure Note Ja Vega MD - 02/12/2025 [facility] [address] [place] [address] EXAMINATION: US AXILLARY NON BREAST LT INDICATIONS: Pain in left upper arm PROVIDED CLINICAL HISTORY: Pain in the left axilla/upper arm for the pastcouple of weeks. No reported palpable lump. Personal history of rightbreast cancer. COMPARISON: NONE TECHNIQUE Grayscale and color Doppler ultrasound imaging of thesuperficial soft tissues of left axilla/upper extremity FINDINGS: Focused sonographic evaluation of the superficial soft tissues withinregion of concern as indicated by the patient, lateral aspect of the leftaxilla demonstrates 2 reniform intramammary lymph nodes each of whichdemonstrates parallel orientation with preserved central hilarechogenicity, thin uniform peripheral hypoechogenicity without nodularity,and central pedicular vascular flow. The first measures 0.8 x 0.3 x 0.7 cmand the second measures 1.6 x 0.7 x 0.9 cm. No suspicious mass, fluidcollection, or dermal thickening within the region of concern. IMPRESSION: 2 morphologically normal lymph nodes within the left axillawithout localizing sonographic abnormality. If there is clinical concernfor a mass within the left axilla, then dedicated diagnostic leftmammography is recommended. Ordered By: BHAVNA SALAZAR Interpreted By: Ja Vega, 02/12/2025 12:43 PM us Bhavna Salazar PA-C ULTRASOUND Final Resu lt * BONE DENSITY/DEXA (01/17/2025 3:16 PM COMMUNITY RELATIONS LIAISON) Anatomical Region Laterality Modality Bone Bone Density 01/17/2025 3:31 PM COMMUNITY RELATIONS LIAISON Impressions 01/17/2025 3:32 PM COMMUNITY RELATIONS LIAISON IMPRESSION: WHO Classification: Normal. RECOMMENDATIONS: All patients should ensure an adequate intake of dietary calcium and vitamin D. The NOF recommend adults under the age of 50 need 1000 mg of calcium and 400-800 IU of vitamin D daily. Effective therapy for the prevention and treatment of osteoporosis include bisphosphonates. FOLLOW-UP: People with diagnosed cases of osteoporosis or at high risk for fracture should have regular bone mineral density test. For patients eligible for Medicare, routine testing is allowed once every 2 years. Testing frequency can be increased to one year for patients who have rapidly progressing disease, those who are receiving or discontinuing medical therapy to restore bone mass, or have additional risk factors. Ordered By: BHAVNA SALAZAR Interpreted By: Ja Vega, 01/17/2025 3:31 PM Narrative 01/17/2025 3:32 PM COMMUNITY RELATIONS LIAISON [place] [id number] EXAMINATION: BONE DENSITY/DEXA INDICATIONS: Other intermediate (current) drug therapy COMPARISON: None TECHNIQUE: DEXA bone mineral density evaluation was performed in the AP projection over the lumbar spine and both hips utilizing standard imaging techniques. FINDINGS: The BMD measured at the AP spine L1-L4 is 1.179 g/cm? with a T-score of 1.2 and a Z score 1.2. The BMD measured at the left femoral neck is 0.809 g/cm? with a T-score of -0.4 and a Z score of -0.2. The BMD measured at the left hip is 0.998 g/cm? with a T-score of 0.5 and a Z score of 0.5. The BMD measured at the right femoral neck is 0.842 g/cm? with a T-score of -0.1 and a Z score of 0.1. The BMD measured at the right hip is 1.026 g/cm? with a T-score of 0.7 and a Z score of 0.7. FRAX 10-year fracture risk: N/A: All T and Z scores are above -1.0. Procedure Note aJ Vega MD - 01/17/2025 [place] [id number] EXAMINATION: BONE DENSITY/DEXA INDICATIONS: Other buttermilk drier operator (current) drug therapy COMPARISON: None TECHNIQUE: DEXA bone mineral density evaluation was performed in the APprojection over the lumbar spine and both hips utilizing standard imagingtechniques. FINDINGS: The BMD measured at the AP spine L1-L4 is 1.179 g/cm? with a T-score of1.2 and a Z score 1.2. The BMD measured at the left femoral neck is 0.809 g/cm? with a T-score of-0.4 and a Z score of -0.2. The BMD measured at the left hip is 0.998 g/cm? with a T-score of 0.5 mirian Z score of 0.5. The BMD measured at the right femoral neck is 0.842 g/cm? with a T-scoreof -0.1 and a Z score of 0.1. The BMD measured at the right hip is 1.026 g/cm? with a T-score of 0.7 mirian Z score of 0.7. FRAX 10-year fracture risk: N/A: All T and Z scores are above -1.0. IMPRESSION: WHO Classification: Normal. RECOMMENDATIONS: All patients should ensure an adequate intake of dietary calcium andvitamin D. The NOF recommend adults under the age of 50 need 1000 mg ofcalcium and 400-800 IU of vitamin D daily. Effective therapy for theprevention and treatment of osteoporosis include bisphosphonates. FOLLOW-UP: People with diagnosed cases of osteoporosis or at high risk for fractureshould have regular bone mineral density test. For patients eligible forMedicare, routine testing is allowed once every 2 years. Testing frequencycan be increased to one year for patients who have rapidly progressingdisease, those who are receiving or discontinuing medical therapy torestore bone mass, or have additional risk factors. Ordered By: BHAVNA SALAZAR Interpreted By: Ja Vega, 01/17/2025 3:31 PM us Bhavna Salazar PA-C DEXA Final Resu lt * (ABNORMAL) COMPREHENSIVE METABOLIC PANEL (01/09/2025 3:05 PM CDT) [facility] GLUCOSE 84 70 - 99 MG/DL 01/09/2025 4:07 PM CDT [facility] BUN 19(H) 7 - 18 MG/DL 01/09/2025 4:07 PM CDT [facility] CREATININE S/P/B 0.70 0.55 - 1.02 MG/DL 01/09/2025 4:07 PM CDT [facility] SODIUM S/P/B 141 136 - 145 MMOL/L 01/09/2025 4:07 PM T [facility] POTASSIUM S/P/B 3.7 3.5 - 5.1 MMOL/L 01/09/2025 4:07 PM [facility] CHLORIDE S/P/B 106 100 - 108 MMOL/L 01/09/2025 4:07 PM T [facility] CO2 24.9 21 - 32 MMOL/L 01/09/2025 4:07 PM T [facility] CALCIUM S/P/B 9.0 8.5 - 10.1 MG/DL 01/09/2025 4:07 PM [facility] BILIRUBIN TOTAL S/P/B 0.3 0.2 - 1.2 MG/DL 01/09/2025 4:07 PM T [facility] Comment: THIS ASSAY IS NOT RECOMMENDED FOR PATIENTS UNDERGOING TREATMENT WITH ELTROMBOPAG DUE TO THE POTENTIAL FOR FALSELY ELEVATED RESULTS. TOTAL PROTEIN S/P/B 7.9 6.4 - 8.2 G/DL 01/09/2025 4:07 PM [facility] ALBUMIN S/P/B 3.8 3.4 - 5.0 G/DL 01/09/2025 4:07 PM [facility] AST 16 15 - 37 U/L 01/09/2025 4:07 PM [facility] ALT 24 14 - 55 U/L 01/09/2025 4:07 PM [facility] ALKALINE PHOSPHATASE S/P/B 118 50 - 136 U/L 01/09/2025 4:07 PM [facility] ANION GAP 10.1 5 - 15 MMOL/L 01/09/2025 4:07 PM T [facility] BUN CREATININE RATIO 27.1(H) 6 - 26 01/09/2025 4:07 PM CDT [facility] A/G RATIO 0.9(L) 1.0 - 2.0 RATIO 01/09/2025 4:07 PM CDT [facility] GFR ESTIMATE >90 >90 ML/MIN/1.7 3 M2 01/09/2025 4:07 PM CDT [facility] Comment: NOTE: eGFR is not calculated for patients <18 years of age. This is an estimated GFR calculation using the new CKD EPI creatinine equation without race and so does not require a correction factor for race. This estimated GFR should not be used for calculating drug doses. 01/09/2025 3:05 PM CDT Cyndy Arguello NP LABORATORY Final Result [facility] [address] [place] [address], * (ABNORMAL) CBC W/DIFF AUTOMATED (01/09/2025 3:05 PM CDT) WBC 7.20 4.50 - 11.00 x10'3/uL 01/09/2025 3:52 PM CDT [facility] RBC 4.84 4.20 - 5.40 x10'6/uL 01/09/2025 3:52 PM CDT [facility] HGB 13.7 12.0 - 16.0 G/DL 01/09/2025 3:52 PM CDT [facility] HCT 42.7 38.0 - 48.0 % 01/09/2025 3:52 PM CDT [facility] MCV 88.2 81.0 - 99.0 FL 01/09/2025 3:52 PM CDT [facility] MCH 28.3 27.0 - 31.0 PG 01/09/2025 3:52 PM CDT [facility] MCHC 32.1 32.0 - 36.0 G/DL 01/09/2025 3:52 PM CDT [facility] RDW 12.8 11.5 - 14.5 % 01/09/2025 3:52 PM CDT [facility] PLT 262 130 - 400 x10'3/uL 01/09/2025 3:52 PM CDT [facility] MPV 10.2 9.3 - 12.2 FL 01/09/2025 3:52 PM CDT [facility] CBC COMMENT AUTOMATED RBC MORPHOLOGY AND PLATELET EVALUATION NORMAL 01/09/2025 3:52 PM CDT [facility] NEUTROPHILS % 59.8 % 01/09/2025 3:52 PM CDT [facility] LYMPHOCYTES % 26.4 % 01/09/2025 3:52 PM CDT [facility] MONOCYTES % 7.2 % 01/09/2025 3:52 PM CDT [facility] EOSINOPHILS 5.3 % 01/09/2025 3:52 PM CDT [facility] BASOPHILS 1.0 % 01/09/2025 3:52 PM CDT [facility] IMMATURE GRANS % 0.3 % 01/10/20 25 3:52 PM CDT [facility] NRBC % 0.0 % 01/09/2025 3:52 PM CDT [facility] ABS. NEUTROPHILS TOTAL 4.31 1.80 - 7.70 x10'3/uL 01/09/2025 3:52 PM CDT [facility] ABS. LYMPHOCYTES 1.90 1.00 - 4.80 x10'3/uL 01/09/2025 3:52 PM CDT [facility] ABS. MONOCYTES 0.52 0.24 - 0.86 x10'3/uL 01/09/2025 3:52 PM CDT [facility] ABS. EOSINOPHILS 0.38(H) 0.04 - 0.36 x10'3/uL 01/09/2025 3:52 PM CDT [facility] ABS. BASOPHILS 0.07 0.01 - 0.08 x10'3/uL 01/09/2025 3:52 PM CDT [facility] ABS. IMMATURE GRANULOCYTES 0.02 0.00 - 0.49 x10'3/uL 01/09/2025 3:52 PM CDT [facility] ABS. NUCLEATED RBC'S 0.00 0.00 - 0.01 x10'3/uL 01/09/2025 3:52 PM CDT [facility] 01/09/2025 3:05 PM CDT us Cyndy Arguello NP LABORATORY Final Result [facility] [address] [place] [id number], from Last 3 Months Insurance [employer] Care Teams Autopsy Assistant Relationship Specialty Start Date End Date Bhavna Salazar PA-C [address] [place] [address] PCP - General PHYSICIAN BACK HAND 05/27/24 Catalino Koch MD [address] [facility] [address] [place] [address] GENERAL SURGERY 05/27/24
--- OUTSIDE RECORDS SUMMARY | 2025-02-16 12:32 | XMS_ITS ---
Author Organization [facility] Address [address] [place] [id number] Care Team Providers Care Sales Service Professional Name Role Phone Uziel Teofilo Jones MD Unavailable [phone] Arian Eaton MD Unavailable [phone] Nathan Fish MD Unavailable [phone] Shara Monreal MD Unavailable [phone] Malorie Malcolm NP Unavailable Bhavna Ventura Primary Care Provider [phone] Active Problems Problem Noted Date Diagnosed Date Breast pain, right 06/27/2022 Invasive ductal carcinoma of breast, female, rig ht 07/30/2021 Encounter for fitting and adjustment of vascular catheter 07/30/2021 Overview (07/30/2021): Added automatically from request for surgery [id number] Malignant neoplasm 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, estrogen receptor negative 07/23/2021 Cancer Staging:Clinical stage from 07/20/2021:Stage IB(cT1c, cN0, cM0, G3, ER-, CA-, HER2-) - Signed by Arian Eaton MD on 07/30/2021 Pathologic stage from 02/10/2022:No Stage Recommended(ypT0, pN0(sn), cM0, GX, ER- , CA-, HER2-) - Signed by Arian Eaton MD on 03/09/2022 Endometriosis 10/22/2019 Overview (10/22/2019): Added automatically from request for surgery [id number] Pelvic and perineal pain 10/22/2019 Overview (10/22/2019): Added automatically from request for surgery [id number] Persistent proteinuria 10/25/2018 Recurrent UTI 10/25/2018 Asymptomatic [...] the original note were not included. [facility] [id number] This Survivorship Care Plan is a cancer [...] Information: Primary Care Physician Petey York MD [phone] Keanu Fish [phone] Arian Eaton [phone] Teofilo Triplett [phone] Plastic Surgeon Other Providers Treatment Summary Cancer [...] Stage IB (cT1c, cN0, cM0, G3, ER-, CA-, HER2-) - Signed by Arian Eaton MD on 07/30/2021 - Pathologic stage from 02/10/2022: No Stage Recommended (ypT0, pN0(sn), cM0, GX, ER-, CA-, HER2-) -Signed by Arian Eaton MD on [...] equivalent: 238.218 mg/m2 (480 mg) Research Studies [id number] in REsults of Immune Checkpoint Inhibitor Tx (DiRECT):Prospective Study of Cancer Survivors Tx'd w anti-PD-1/antiPD-L1 Immunotherapy in a Community Oncology Setting Status On study Active Start Date 08/13/21 NCT [id number] Persistent symptoms or side effects that have [...] breast cancer could run in the family: Denominational heritage History of ovarian cancer in the [...] monitoring Every 3 months while on Herceptin POLLUTION CONTROL ENGINEER: No care contact center team lead to display Pap/pelvic exam (woman only) As [...] Help learning to eat healthier, call the developer programmer at: [facility] . Have an active lifestyle, strive for [...] Cancer.Net--http://www.cancer.net/survivorship Livestrong--http://www.livestrong.org/ Livestrong Care Plan--http://www.livestrongcareplan.org/ National Cancer [place]--http://www.cancer.gov/cancertopics/factsheet/therapy/followup National Cancer [place] Facing Forward: Life After Cancer Treatment--http://www.cancer.gov/cancertopics/coping/uxrx-utrwj-xykmebuag National Coalition for Cancer Survivorship--http://www.canceradvocacy.org/ National Comprehensive Cancer Network-http://www.nccn.org/patients/resources NCCS Cancer Survival Toolbox-- http://www.canceradvocacy.org/toolbox/ CancerCare--http://www.cancercare.org/ Healthcare.gov (insurance marketplace)-- https://www.healthcare.gov/ Cancer and Careers--http://www.cancerandcareers.org/en [place] Cancer Society:The Survivorship Center--http://www.cancer.org/survivorshipcenter Cancer Support Community- http://www.cancersupportcommunity.org/ Cancer Rehabilitation--www.[facility].org/rehab Resolved Problems Problem Noted Date Diagnosed Date Resolved Date Post-operative state 02/22/2022 024
--- OUTSIDE RECORDS SUMMARY | 2025-02-16 12:32 | XMS_ITS | Encounter Summary ---
Author Organization [facility] Address [address] [place] [address] Care Team Providers Care Computerized Mill Recorder Name Role Phone Ryan Metz MD Primary Care Provider [phone] Encounter Details Date Type Department Care Team (Late st Contact Info) Description 12/28/2023 Lab Requisition [facility] Lab [address] [place] [address] Enrrique Gandara MD [address] [facility] [address] [place] [id number] Illness, unspecified Social History Tobacco Use Types Packs/Day Years Used Date Smoking Tobacco: Never Smokeless Tobacco: Never Alcohol Use Standard Drinks/Week Comments Yes 0 (1 standard drink = 0.6 oz pur e alcohol) 2-3 drinks per month Comments No Sex and Gender Information Value Date Recorded Sex Assigned at Not on file Legal Sex 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 Gender Identity Not on file Sexual Orientation [...] SLIDE PREP HISTOLOGY Routine 02/15/2024 10:00 AM DIRECTOR OF CONSUMER AFFAIRS Illness, unspecified documented in this encounter Results * SLIDE PREP HISTOLOGY (02/15/2024 10:00 AM DIRECTOR OF CONSUMER AFFAIRS) Client Specimen ID # [id number] 06/21/2024 1:21 PM CDT [facility] Number of Blocks Received 0 06/21/2024 1:21 PM CDT [facility] Number of Slides 1 06/21/2024 1:21 PM CDT [facility] Number of Control Slides 1 06/21/2024 1:21 PM CDT [facility] Pathology/Cytolo gy 02/15/2024 10:00 AM DIRECTOR OF CONSUMER AFFAIRS 12/28/2023 12:44 PM CDT us Enrrique Gandara MD LAB - PATHOLOGY/CYT OLOGY ORDERABLES Final Result [facility] [address] [place] [address], [facility] [phone] documented in this encounter Visit Diagnoses Diagnosis Illness, unspecified documented in this encounter Care Teams Computerized Mill Recorder Relationship Specialty Start Date End Date Ryan Metz MD [address] [place] [address] PCP - General 05/15/17 documented as of this encounter
--- OUTSIDE RECORDS SUMMARY | 2025-02-16 12:32 | XMS_ITS | Encounter Summary ---
Author Organization [facility] Address [address] [place] [address] Care Team Providers Care Feed Weigher Name Role Phone Catalino Koch MD Unavailable Bhavna Ventura PA-C Primary Care Provider [phone] Encounter Details Date Type Department Care Team (Latest Contact Info) Description 02/15/2025 Travel Social History Tobacco Use Types Packs/Day [...] on filedocumented in this encounter Care Teams Feed Weigher Relationship Specialty Start Date End Date Bhavna Ventura PA-C [facility] [address] [place] [address] PCP - General PHYSICIAN SUPERVISOR HARD CANDY 05/27/24 Catalino Koch MD [address] [facility] [address] [place] [address] GENERAL SURGERY 05/27/24 documented as of this encounter
--- OUTSIDE RECORDS SUMMARY | 2025-02-16 12:32 | XMS_ITS | Clinical Summary ---
Author Organization [facility] Address [address] [place] [address] Care Team Providers Care Food Porter Name Role Phone Ryan Metz MD Primary Care Provider [phone] Source Comments [facility],non-owned Affiliates and Associated Physician Practices is amultiple site organization consisting of ambulatory clinics and hospital sitesin [place], [place], [place] and [place]. This disclosure is being madepursuant to the Care Everywhere program and may not contain all information available regarding this patient. 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 Gender Identity Not on file Sexual Orientation [...] Health Maintenance Due Date Last Done Comments HIV SCREENING 01/06/2007 HEPATITIS C SCREENING 01/02/2010 DTAP/TDAP/TD VACCINES (1 - Tdap) 01/06/2011 HEPATITIS B VACCINE (1 of 3 - 19+ 3-dose series) 01/06/2011 PAP SMEAR 01/06/2013 HPV VACCINE (1 - 3-dose SCDM series) 01/06/2019 DEPRESSION SCREENING 03/13/2024 COVID-19 VACCINE (1 - 2024-2 6 season) 2024 INFLUENZA VACCINE (#1) 2024 ZOSTER VACCINE (1 of 2) 01/06/2042 [...] Group ID:Not on file Type:Self Pay Address: [place], [place] [employer]ET[employer] A[employer] Advance Directives * Full Code (Latest Code Status on File) Date Activated Date Inactivated Comments 12/13/2017 6:14 PM 12/14/2017 4:52 PM Care Teams Food Porter Relationship Specialty Start Date End Date Ryan Metz MD [address] [place] [id number] PCP - General 3/5/18
[2025-02-16 12:40] VITALS: BP 106/63; PULSE 83; RESP 24; TEMP 36.3; O2SAT 99
--- NOTE | 2025-02-16 12:47 | ED_ITS ---
HPI - Female Genitourinary General Chief complaint: Urogenital-Female Stated complaint: UTI Time Seen by Provider: 02/16/25 12:47 Source: patient and RN notes reviewed Mode of arrival: ambulatory Limitations: no limitations History of Present Illness HPI Narrative: 35-year-old female presents with concern for 3-4 day history of low back pain urine frequency, suprapubic pressure in pain. She denies dysuria. She denies nausea, vomiting. She denies fever, body aches, chills, sweats. She reports history of endometriosis. MD elicited complaint: UTI Related Data Home Medications ?Medication ?Instructions ?Recorded ?Confirmed ?Last Taken ?Type cetirizine 10 mg tablet (24Hour 10 mg PO DAILY 5 06/26/24 Unknown History Allergy) epinephrine 0.3 mg/0.3 mL 0.3 ml IM [id number] PRN anaphy laxis 05/27/24 06/26/24 Unknown History injection, auto-injector (EpiPen) Allergies Allergy/AdvReac Type Severity Reaction Status Date / Time carboplatin Allergy Severe Anaphylaxis Verified 10/10/24 15:35 nitrofurantoin Allergy Mild Rash Verified 02/16/25 12:44 sulfamethoxazole (From Allergy Unknown Unknown Verified 02/16/25 12:44 Sulfamethoxazole-Trimethoprim) trimethoprim (From Allergy Unknown Rash Verified 02/16/25 12:44 Sulfamethoxazole-Trimethoprim) ciprofloxacin AdvReac Intermediate Diarrhea Verified 02/16/25 12:44 doxycycline AdvReac Intermediate Vomiting Verified 02/16/25 12:44 oxycodone (From Percocet) AdvReac Intermediate Vomiting Verified 02/16/25 12:44 [id number] Reductase AdvReac Intermediate Myalgias Verified 02/16/25 12:44 Inhibitor Review of Systems Review of Systems: CONSTITUTIONAL: Denies malaise, chills, sweats, or fever. CARDIOVASCULAR: Denies chest pain, palpitations, or edema. RESPIRATORY: Denies cough or dyspnea. GASTROINTESTINAL: Denies abdominal pain, nausea, vomiting, diarrhea GENITOURINARY: Reports frequency, suprapubic pressure. Denies flank pain or hematuria. SKIN: Denies rash or itching. MUSCULOSKELETAL: Denies back pain or myalgia. All systems reviewed & are unremarkable except as noted in HPI and below PMFSH Past Medical History Medical History (Updated 02/16/25 @ 12:56 by Piedad Diggs APRN) History of chemotherapy History of breast cancer Gastritis Gastroparesis Acidosis Acquired hypothyroidism OAB (overactive bladder) Vitamin B12 deficiency Nausea and vomiting Left sided abdominal pain Dyslipidemia Breast lump Breast pain Endometriosis determined by laparoscopy Breast cancer right breast, medial position lumpectomy 02-10-2022, Dr Kiser Vitamin D deficiency Elevated cholesterol Hematuria benign, always has it Triple negative breast cancer Surgical History Surgical History (Updated 10/10/24 @ 16:22 by Bhavna Ventura PA-C) History of lymph node dissection of right axilla History of lumpectomy of right breast S/P laparoscopic cholecystectomy 07/2024 S/P myringotomy with insertion of tube Hx of myomectomy History of adenoidectomy History of breast biopsy History of tonsillectomy Social History Social History ) Smoking status: Never smoker Second hand tobacco smoke exposure: No Alcohol intake: never Drinks per week: 1 Alcohol use details: rarely Substance use: never Substance use type: does not use Lack of Transportation: No Lack of Food: Never True Current Housing: I Have Housing Concerned About Future Housing: No Difficulty Paying Gas/Electric Bills: No Difficulty Paying for Meds: No Currently Unemployed: No Education: High School Diploma/GED Difficulty w/ Childcare or Family Care: No Living arrangements: alone Occupation/Education: occupation Gender identity (if verbalized by the patient): Female Spiritual care concerns: No Comments At time of signature, agree with nursing past medical, surgical, social and fa huber history. There is no relevant family history pertinent to the presenting complaint Exam Narrative: GENERAL: Well-appearing, well-nourished, and in no acute distress. HEAD: Normocephalic. EYES: PERRLA, conjunctivae clear. NECK: Supple. No lymphadenopathy CHEST: Clear to auscultation. No respiratory distress. HEART: Regular rate and rhythm. ABDOMEN: Soft, nontender upon palpation, nondistended, no palpable or pulsatile masses, no guarding. No CVA tenderness SKIN: Warm, dry, no rash. NEURO: Alert and oriented x3. PSYCH: Normal mood and affect Course Course Emergency Course: Discussed waiting to start antibiotic pending culture verses starting antibiotic now. Patient prefers to start now. Patient is aware of diagnosis, understands and agrees to treatment plan. Anticipatory guidance given. Patient agrees to follow-up as directed and is aware of reasons to seek care at the emergency department. Portions of this record may have been created with voice recognition software Level of Care: [facility] Visit Vital Signs Vital signs: Vital Signs Temperature 97.4 F L 02/16/25 12:40 Pulse Rate 83 02/16/25 12:40 Respiratory Rate 24 H 02/16/25 12:40 Blood Pressure 106/63 02/16/25 12:40 Pulse Oximetry 99 02/16/25 12:40 Oxygen Delivery Room Air 02/16/25 12:40 Temperature 97.4 F L 02/16/25 12:40 Pulse Rate 83 02/16/25 12:40 Respiratory Rate 24 H 02/16/25 12:40 Blood Pressure 106/63 02/16/25 12:40 Pulse Oximetry 99 02/16/25 12:40 Oxygen Delivery Room Air 02/16/25 12:40 MDM Differential Diagnosis Differential Diagnosis: I evaluated this patient in the [facility]. History is obtained from patient who is an independent historian and physical exam was performed.? Available [facility] records were reviewed. ? Exam findings and relevant testing show no acute concerns or changes; patient is non-toxic appearing and is in no distress. ? Exam findings and UA show no acute concerns or changes; patient is non-toxic appearing and is in no distress. No CMT, adnexal tenderness, or evidence of pelvic etiology. Differential diagnosis include pyelonephritis, STI, cystitis, urinary tract infection, acute abdomen, gastroenteritis, yeast infection Differential diagnosis and treatment plan were discussed with the patient. Patient agrees with discussion and after shared medical decision making agrees with plan of care. All questions were answered to the patient's satisfaction. Patient is appropriate for outpatient treatment and follow-up. Discharge Plan Discharge Clinical Impression: Symptoms of urinary tract infection Patient Disposition: Home Condition: Stable Instructions: Urinary Tract Infection in Women (ED) Additional Instructions: We will send a urine culture to the lab; if the culture identifies an organism that the prescribed antibiotic will not treat, you will receive a phone call from an urgent care staff member and an appropriate antibiotic will be prescribed. -Your symptoms should begin to improve within a day of starting antibiotics. But you should finish all the antibiotic pills you get. Otherwise your infection might come back. -Also recommend: increase water intake. Tylenol/ibuprofen as needed for pain or fever -Follow-up with your primary care provider for urine recheck or seek ER visit if condition worsens with high fever, nausea, vomiting and severe back pain. Patient Language: Hebrew Prescriptions: New amoxicillin-pot clavulanate 875-125 mg tablet 1 tablet PO Q12H 5 Days Qty: 10 0RF No Action Linzess 72 mcg capsule 72 mcg PO DAILY 90 Days Qty: 90 3RF cetirizine [24Hour Allergy] 10 mg tablet 10 mg PO DAILY epinephrine [EpiPen] 0.3 mg/0.3 mL auto-injector 0.3 ml IM [id number] PRN (Reason: anaphylaxis) Patient Comments: FOR ALLERGY SHOT REACTION levothyroxine 75 mcg capsule 75 mcg PO DAILY Qty: 90 0RF alprazolam 0.25 mg tablet 0.25 mg PO DAILY PRN (Reason: anxiety) Qty: 30 0RF esomeprazole magnesium [Nexium] 40 mg capsule,delayed release(DR/EC) 40 mg PO DAILY 30 Days Qty: 30 5RF tramadol 50 mg tablet 50 mg PO Q6H PRN (Reason: pain) Qty: 30 0RF montelukast [Singulair] 10 mg tablet 10 mg PO DAILY Qty: 90 0RF Follow-up/Referrals: Bhavna Ventura PA-C [Primary Care Provider, Family Practice] Time of Disposition: 12:57
[2025-02-16 12:49] LABS: EDUAAPPEAR Clear; EDUABILI Negative (Negative); EDUABLOOD Negative (Negative); EDUACOLOR1 Yellow; EDUAGLUCOSE Negative (Negative); EDUAKETONE Negative (Negative); EDUALEUKO Negative (Negative); EDUANITRATE Negative (Negative); EDUAPH 5.5; EDUAPROTEIN Negative (Negative); EDUASPGRAVITY 1.020; EDUAUROBILI 0.2
== END 2025-02-16 13:01 | disposition home or self-care (01) ==
PROVIDERS: Emergency Provider Nurse Practitioner; PCP Physician Assistant Medical
DX: R35.0 Frequency of micturition (principal); R10.24 Suprapubic pain; M54.50 Low back pain, unspecified; E78.00 Pure hypercholesterolemia, unspecified; N80.9 Endometriosis, unspecified; K31.84 Gastroparesis; Z85.3 Personal history of malignant neoplasm of breast; Z90.11 Acquired absence of right breast and nipple; Z92.21 Personal history of antineoplastic chemotherapy
CPT/HCPCS: 81003; 87086; 99213; G0463